=== PATIENT | female | born 1935 | race Caucasian/White ===

== ENCOUNTER 2016-03-12 08:30 | Outpatient (RCR) | payer MEDICARE, OTHER ==
--- OUTSIDE RECORDS SUMMARY | 2016-02-26 12:47 | XMS REPORT | Continuity of Care Document ---
Author Author [facility] Organization [facility] Address Unknown Phone Unavailable Care Team Providers Care Lead Software Engineer Name Role Phone Ping Bonds PCP [phone] Source Comments Some departments are not documenting in the electronic medical record. If you do not see the information that you expected, contact Release of Information in the Health Information Management department at [phone] for further assistance in locating additional records.[facility] Active Allergies and Adverse Reactions Allergen Noted Date Severity Reactions Comments Penicillin G 07/09/2014 Medium RASH Current Medications Prescription Sig. Disp. Refills Start End Date Status Date MULTIVITAMIN PO Take by mouth. vibe Active omeprazole DR(+) Take 1 Cap by mouth 90 Cap 3 10/13/19 Active (PRILOSEC) 20 mg capsule daily. 14 aspirin EC 81 mg tablet Take 81 mg by mouth every Active 7 days. other medication Take 1 Dose by mouth at Active bedtime daily. Patient is on (Oxygen 2.0ml) fluticasone-vilanterol Inhale by mouth twice Active (BREO ELLIPTA) 100-25 daily as needed. mcg/dose dsdv ALBUTEROL SULFATE Inhale by mouth four Active (VENTOLIN HFA IN) times daily as needed. ERGOCALCIFEROL (VITAMIN Take by mouth every 7 Active D2) (VITAMIN D PO) days. pramipexole (MIRAPEX) Take 0.5 Tabs by mouth 30 Tab 5 10/08/19 Active 0.25 mg tablet twice daily. 15 carbidopa/levodopa Take 2 Tabs by mouth 540 Tab 2 09/09/19 Active (SINEMET) 25/100 mg three times daily. 16 tablet rasagiline(+) (AZILECT) 1 Take 1 Tab by mouth 90 Tab 0 11/27/19 Active mg tablet daily. 16 sertraline (ZOLOFT) 50 mg Take 1 Tab by mouth 90 Tab 0 11/27/19 Active tablet daily. 16 Active Problems Problem Noted Date Depression 04/28/2015 Overview: On Zoloft (sertraline) L ast Assessment & Plan: Her symptoms are stable. No medication changes were recommended during the current visit. RLS (restless legs syndrome) 10/07/2014 Last Assessment & Plan: Her symptoms are stable. No medication changes were recommended during the current visit. Parkinsonism ([facility]) 07/09/2014 Overview: Symptoms began in 2009, initial symptoms was right sided stiffness. Diagnosed with Parkinson's disease in 2012. Atypical PD Features: Rapid Progression and Tremor Absent Side effects to Requip (ropinirole) 07/14/2014 Total Mentation Score: 3 Total Activities of Daily Living Score: 29 Total Motor Exam: 53 Total UPDRS Score: 85 PDQ 39 IMPACT PDQ Total Percent: 46.79 % 10/07/2014 PDQ8 Total Percent: 21.88% 04/28/2015 PDQ8 Total %: 22 L ast Assessment & Plan: Her symptoms are improved since last visit and no medication changes were recommended during the current visit. Cognitive changes 07/09/2014 Overview: 07/14/2014 MOCA Score (out of 30): 22 L ast Assessment & Plan: Her symptoms are not bothersome and no medication changes were recommended during the current visit. Insomnia 07/09/2014 Last Assessment & Plan: Her symptoms are stable. No medication changes were recommended during the current visit. Anxiety 07/09/2014 Overview: 07/14/2014 On Zoloft (sertraline) L ast Assessment & Plan: Her symptoms are improved since last visit. Frozen shoulder 07/09/2014 Last Assessment & Plan: I recommended Physical Therapy. Hypophonia 10/12/2013 Parkinson disease ([facility]) 07/19/2013 Gait instability 06/08/2013 Most Recent Encounters Date Type Specialty Providers Description 11/27/2015 Refill Neurology Rah Cruz MD Parkinson disease ([facility]) (Primary Dx) Social History Tobacco Use Types Packs/Day Years Used Date Never Smoker Smokeless Tobacco: Never Used Alcohol Use Drinks/Week oz/Week Comments No Last Filed Vital Signs Vital Sign Reading Time Taken Blood Pressure 171/81 04/28/2015 1:05 PM BAKERY ASSISTANT Pulse 81 04/28/2015 1:05 PM BAKERY ASSISTANT Temperature 36.4 C (97.6 F) 05/20/2014 10:50 AM CDT Respiratory Rate - - Height 1.74 m (5' 8.5") 04/28/2015 1:05 PM BAKERY ASSISTANT Weight 64 kg (141 lb 1.5 oz) 04/28/2015 1:05 PM BAKERY ASSISTANT Body Mass Index 21.14 04/28/2015 1:05 PM BAKERY ASSISTANT Oxygen Saturation 99% 05/20/2014 10:50 AM CDT Plan of Care Date Type Specialty Providers Description 04/14/2016 Appointment Neurology Rah Cruz MD [address] [facility] [address] [place] [address] [phone] (Fax) Health Maintenance Due Date Last Done Comments Physical (Comprehensive) 1942 Exam Pertussis Vaccine 1946 Tetanus Vaccine 01/07/1952 Shingles Vaccine 1995 Osteoporosis Screening 01/07/2000 Prevnar/Pneumovax (#1) 01/07/2000 Influenza Vaccine 11/13/2015 Results from Last 3 Months Not on file
[~2016-03-12 08:30] MED LIST: ACHD5005 PO; AMLO5TAB2 PO; ASPI-587 PO; CALC-793; FAMO20TA5 PO; HYDR-2856 PO; HYDR1CAP PO; HYDR1TAB PO; HYDR25CA5; MULT-608; OMEP20CA12 PO; OXYB5TAB9 PO; RASA1TAB PO; RNT150T; SCR1T PO; SENN1TAB76 PO; SERT50TA9 PO; TRIA1CAP4 PO
[2016-03-15] MEDS ORDERED: OMEP2.5S PO (16:18)
[2016-03-16] MEDS ORDERED: OMEG10005 PO (09:18)
[2016-03-16] MEDS ORDERED: NITR0.4T SL (09:18)
[2016-03-16] MEDS ORDERED: VITA150T PO (09:18)
[2016-03-16] MEDS ORDERED: CARB1TAB19 PO ×2 (09:18)
[2016-03-16] MEDS ORDERED: OMEP20CA12 PO (09:18)
[2016-03-16] MEDS ORDERED: CALC-78 PO (09:18)
[2016-03-16] MEDS ORDERED: ASPI-983 PO (09:18)
[2016-03-16] MEDS ORDERED: MULT-35 PO (09:18)
[2016-03-16] MEDS ORDERED: CHOL400T PO (09:18)
[2016-03-16] MEDS ORDERED: SERT50TA9 PO (09:18)
[2016-03-16] MEDS ORDERED: PRAM0.252 PO (09:27)
[2016-03-19] MEDS ORDERED: METO-333 PO (08:22)
[2016-03-19] MEDS ORDERED: LISI-556 PO (08:22)
== END 2016-03-23 10:54 | disposition home or self-care (01) ==
PROVIDERS: ATTEND Nurse Practitioner Family
DX: M79.621 Pain in right upper arm (principal); G20 Parkinson's disease

== ENCOUNTER 2016-03-15 14:18 | Inpatient (IN) | payer MEDICARE, OTHER ==
[2016-03-15] VITALS (10 sets, daily range): BP systolic 109–150; BP diastolic 64–92
[~2016-03-15] VITALS: Ht 177.8 cm; Wt 61.2 kg
--- OUTSIDE RECORDS SUMMARY | 2016-03-15 14:23 | XMS REPORT | Continuity of Care Document ---
Author Author [facility] Organization [facility] Address Unknown Phone Unavailable Care Team Providers Care Material Lister Name Role Phone Ping Bonds PCP [phone] Source Comments Some departments are not documenting in the electronic medical record. If you do not see the information that you expected, contact Release of Information in the Health Information Management department at [phone] for further assistance in locating additional records.[facility] Active Allergies and Adverse Reactions Allergen Noted [...] were recommended during the current visit. Parkinsonism (HCC) 07/09/2014 Overview: Symptoms began in 2009, initial [...] recommended Physical Therapy. Hypophonia 10/12/2013 Parkinson disease (HCC) 07/19/2013 Gait instability 06/08/2013 Social History Tobacco Use Types Packs/Day Years Used Date Never Smoker Smokeless Tobacco: Never Used Alcohol Use Drinks/Week oz/Week Comments No Last Filed Vital Signs Vital Sign Reading Time Taken Blood Pressure 171/81 04/28/2015 1:05 PM TRIMMING INSPECTOR Pulse 81 04/28/2015 1:05 PM TRIMMING INSPECTOR Temperature 36.4 C (97.6 F) 05/20/2014 10:50 AM CDT Respiratory Rate - - Height 1.74 m (5' 8.5") 04/28/2015 1:05 PM TRIMMING INSPECTOR Weight 64 kg (141 lb 1.5 oz) 04/28/2015 1:05 PM TRIMMING INSPECTOR Body Mass Index 21.14 04/28/2015 1:05 PM TRIMMING INSPECTOR Oxygen Saturation 99% 05/20/2014 10:50 AM CDT Plan of Care Date Type Specialty Providers Description 04/14/2016 Appointment Neurology Rah Cruz MD [address] [facility] [address] [place] [address] [phone] (Fax) Health Maintenance Due Date Last Done Comments Physical (Comprehensive) 1942 Exam Pertussis Vaccine 1946 Tetanus Vaccine 01/07/1952 Shingles Vaccine 1995 Osteoporosis Screening 01/07/2000 Prevnar/Pneumovax (#1) 01/07/2000 Influenza Vaccine 11/13/2015 Results from Last 3 Months Not on file
[2016-03-15] MEDS ORDERED: OMEP2.5S PO (16:18)
[2016-03-15] MEDS ORDERED: ASPIRIN 81 MG CHEW (CHILDREN'S ASA) PO ONE (16:45)
[2016-03-15 16:47] LABS: BASOPHILS % (AUTO) 0 % (0-10); EOSINOPHILS # (AUTO) 0.1 10^3/uL (0.0-0.3); EOSINOPHILS % (AUTO) 1 % (0-10); LYMPHOCYTES # (AUTO) 0.8 X 10^3 (1.0-4.0); LYMPHOCYTES % (AUTO) 13 % (12-44); MEAN CORPUSCULAR HEMOGLOBIN 32 PG (25-34); MEAN CORPUSCULAR HGB CONC 33 G/DL (32-36); MEAN CORPUSCULAR VOLUME 97 FL (80-99); MEAN PLATELET VOLUME 9.8 FL (7.4-10.4); MONOCYTES # (AUTO) 0.7 X 10^3 (0.0-1.0); MONOCYTES % (AUTO) 11 % (0-12); NEUTROPHILS # (AUTO) 4.8 X 10^3 (1.8-7.8); NEUTROPHILS % (AUTO) 75 % (42-75); PLATELET COUNT 121 10^3/uL (130-400); RED BLOOD COUNT 4.37 10^6/uL (4.35-5.85); RED CELL DISTRIBUTION WIDTH 12.9 % (10.0-14.5); WHITE BLOOD COUNT 6.4 10^3/uL (4.3-11.0)
[2016-03-15 16:58] LABS: PROTHROMBIN TIME PATIENT 12.7 SEC (12.2-14.7)
[2016-03-15 17:09] LABS: ALANINE AMINOTRANSFERASE 7 U/L (0-55); ALBUMIN 3.9 G/DL (3.2-4.5); ANION GAP 8 MMOL/L (5-14); ASPARTATE AMINO TRANSFERASE 25 U/L (5-34); BILIRUBIN,TOTAL 0.6 MG/DL (0.1-1.0); BLOOD UREA NITROGEN 17 MG/DL (7-18); BUN/CREATININE RATIO 21; CALCIUM 9.2 MG/DL (8.5-10.1); CARBON DIOXIDE 28 MMOL/L (21-32); CHLORIDE 104 MMOL/L (98-107); CREATINE KINASE 62 U/L (29-168); CREATININE SERUM 0.82 MG/DL (0.60-1.30); GFR ESTIMATED > 60; GLUCOSE 116 MG/DL (70-105); MAGNESIUM 2.1 MG/DL (1.8-2.4); POTASSIUM 3.9 MMOL/L (3.6-5.0); SODIUM 140 MMOL/L (135-145); TOTAL PROTEIN 6.5 G/DL (6.4-8.2)
--- NOTE | 2016-03-15 17:11 | Diagnostic Imaging Report ---
INDICATION: Shortness of breath x2 days. TECHNIQUE: Single view chest at 4:48 PM. CORRELATION STUDY: 08/09/2014 FINDINGS: Heart size appears slightly increased in size. There is presence of pulmonary vascular congestion and perihilar edema. Prominent interstitial markings likely owing to component of interstitial edema. Superimposed areas of infiltrate of the lung bases versus edema right greater than left also present. Small right pleural effusion. Apparent surgical change of bilateral mastectomies with surgical clips in bilateral axillae present. Asymmetric biapical pleural thickening noted slightly greater on the right. Hilar structures also appearing slightly prominent. Overlying monitor leads present. IMPRESSION: 1. Features favoring changes of congestive heart failure or fluid overload. 2. Superimposed edema versus infiltrate of the right lung base along with small right pleural effusion. 3. Slight prominent appearance about the hilar structures as well as asymmetric right apical pleural thickening. Would recommend short-term followup imaging for reassessment. Dictated by: Dictated on workstation # [id number]
[2016-03-15 17:17] LABS: TROPONIN I < 0.30 NG/ML (<0.30)
[2016-03-15] MEDS ORDERED: NITROGLYCERIN 2% OINT 1 GM UNIT DOSE PACKET TOP ONE (17:45)
[2016-03-15] MEDS ORDERED: ENOXAPARIN 60 MG/0.6 ML (LOVENOX) SYR SC ONE (17:45)
[2016-03-15] MEDS ORDERED: FUROSEMIDE 40 MG/4 ML INJ (LASIX) IVP ONE (17:45)
[2016-03-15] MEDS ORDERED: CLOPIDOGREL 300 MG (PLAVIX) TABLET PO ONE (17:45)
--- NOTE | 2016-03-15 18:15 | ED Respiratory ---
General Chief Complaint: Respiratory Problems Stated Complaint: CHF,NEW LBBB,HTN,CHEST PAIN Nursing Triage Note: SOB X2DAYS WORSE TODAY. Source: patient (SOMEWHAT VAGUE HISTORIAN) History of Present Illness Time seen by provider: 16:20 Initial Comments PT ARRIVES VIA POV FROM HOME C/O SHORTNESS OF BREATH SINCE LAST PM HAS HAD HOME O2 IN THE PAST, BUT HAS NOT NEEDED IT FOR A LONG TIME AND SENT IT BACK AND THIS IS NOT THE SAME HAS "FULLNESS" IN CHEST NO COUGH NO FEVER NO SWELLING IN LEGS/FEET OR PAIN IN CALVES NO PALPITATIONS NO DIZZINESS NO SWEATS NO NAUSEA/VOMITING STATES SHE "JUST HASN'T BEEN FEELING WELL" THIS WEEK NO HISTORY OF SIMILAR PCP: DR. BOLAÑOS Allergies and Home Medications Allergies Coded Allergies: Penicillins (Verified Allergy, Mild, 08/05/13) Home Medications Amlodipine Besylate 5 Mg Tab #30 5 MG PO DAILY Prescribed by: NORMA CLAUDIO on 08/22/13 1006 Aspirin 81 Mg Tablet.dr 81 MG PO DAILY (Reported) Omeprazole Magnesium 2.5 Mg Suspdr.pkt 2.5 MG PO (Reported) Oxybutynin Chloride 5 Mg Tablet #30 5 MG PO DAILY (Reported) Rasagiline Mesylate 1 Mg Tablet #30 1/2 PIILL BID (Reported) Sertraline Hcl 50 Mg Tablet 75 MG PO DAILY (Reported) Constitutional: no symptoms reportedNo chills, No diaphoresis, No dizziness, No fever EENTM: no symptoms reported Respiratory: see HPINo cough, orthopnea short of breathNo wheezing Cardiovascular: see HPI chest painNo edema, No Hx of Intervention, No palpitations, No syncope, No vascular heart diseas Gastrointestinal: no symptoms reportedNo nausea, No vomiting Genitourinary: no symptoms reported (CHRONIC INCONTINENCE) Musculoskeletal: no symptoms reported Skin: no symptoms reported Psychiatric/Neurological: No Symptoms ReportedDenies Headache, Denies Numbness , Denies Paresthesia, Denies Seizure, Denies Tingling, Tremors (HAS PARKINSON'S )Denies Weakness Hematologic/Lymphatic: No Symptoms Reported Immunological/Allergic: no symptoms reported Past Sahvdxd-Viaybj-Szhwaq Hx Patient Social History Alcohol Use: Denies Use Recreational Drug Use: No Smoking Status: Never a Smoker Recent Foreign Travel: No Contact w/Someone Who Travel: No Recent Infectious Disease Expo: No Recent Hopitalizations: No Physical Abuse Screen: No Sexual Abuse: No Surgeries HX Surgeries: Yes (COLON RESECTION FOR CANCER; LIVER RESECTION--HEMONGIOMA; HYST/BSO FOR BENIGN DISEASE; BILATERAL MASTECTOMY FOR CANCER) Surgeries: Abdominal, Appendectomy, Breast, Gallbladder, Hysterectomy, Oophorectomy Respiratory Hx Respiratory Disorders: No Cardiovascular Hx Cardiac Disorders: Yes (ON HTN MEDS IN PAST, BUT NOT NOW) Cardiac Disorders: High Cholesterol, Hypertension Neurological Hx Neurological Disorders: Yes Neurological Disorders: Parkinson's Disease Reproductive System Hx Reproductive Disorders: No Sexually Transmitted Disease: No HIV/AIDS: No Female Reproductive Disorders: Denies Genitourinary Hx Genitourinary Disorders: Yes (INCONTINENCE) Gastrointestinal Hx Gastrointestinal Disorders: Yes Gastrointestinal Disorders: Gastroesophageal Reflux Musculoskeletal Hx Musculoskeletal Disorders: Yes Musculoskeletal Disorders: Arthritis, Rheumatoid Arthritis Endocrine Hx Endocrine Disorders: No HEENT HX ENT Disorders: No Cancer Hx Cancer: Yes (BILATERAL MASTECTOMY; COLON RESECTION; 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) Cancer: Breast, Colon Psychosocial Hx Psychiatric Problems: No Integumentary HX Skin/Integumentary Disorder: No Blood Transfusions Hx Blood Disorders: No Family Medical History Significant Family History: Cancer Family Medial History: Cancer 19 FATHER (BLADDER) 19 MOTHER (LIVER ) Parkinson's disease 19 FATHER Physical Exam Vital Signs Vital Sign - Last 12Hours 03/15/16 16:14 Temp 98.3 Pulse 80 Resp 16 B/P 129/62 Pulse Ox 97 Capillary Refill : Less Than 3 Seconds General Appearance: WD/WN mild distress (MILDLY DYSPNEIC/TACHYPNEIC WITH SHALLOW BREATHING, ABLE TO TALK IN SHORT SENTENCES) HEENT: PERRL/EOMI Neck: non-tender full range of motion supple normal inspection Respiratory: no accessory muscle use rales (IN BASES) other (TACHYPNEIC WITH SHALLOW BREATHING, MILD DISTRESS) Cardiovascular: normal peripheral pulses no edema no JVD tachycardia systolic murmur (1/6 MURMUR) extra beats (OCCASIONAL ECTOPY) Gastrointestinal: normal bowel sounds non tender soft no organomegaly no pulsatile mass Extremities: normal range of motion non-tender normal inspection no pedal edema no calf tenderness normal capillary refill Neurologic/Psychiatric: 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 II-XII nml as tested no motor/sensory deficits alert normal mood/affect oriented x 3 Skin: normal color warm/dry Progress/Results/Core Measures Results/Orders Lab Results Laboratory Tests Test 03/15/16 16:36 Range/Units Activated Partial Thromboplast Time 28 24-35 SEC Alanine Aminotransferase (ALT/SGPT) 7 0-55 U/L Albumin 3.9 3.2-4.5 G/DL Alkaline Phosphatase 69 40-136 U/L Anion Gap 8 5-14 MMOL/L Aspartate Amino Transf (AST/SGOT) 25 5-34 U/L B-Type Natriuretic Peptide 608.0 H <100.0 PG/ML BUN/Creatinine Ratio 21 Basophils # (Auto) 0.0 0.0-0.1 10^3/uL Basophils (%) (Auto) 0 0-10 % Blood Urea Nitrogen 17 7-18 MG/DL Calcium Level 9.2 8.5-10.1 MG/DL Carbon Dioxide Level 28 21-32 MMOL/L Chloride Level 104 98-107 MMOL/L Creatine Kinase MB 3.0 <6.6 NG/ML Creatinine 0.82 0.60-1.30 MG/DL Eosinophils # (Auto) 0.1 0.0-0.3 10^3/uL Eosinophils (%) (Auto) 1 0-10 % Estimat Glomerular Filtration Rate > 60 Glucose Level 116 H 70-105 MG/DL Hematocrit 42 35-52 % Hemoglobin 13.8 11.5-16.0 G/DL INR Comment 1.0 0.8-1.4 Lymphocytes # (Auto) 0.8 L 1.0-4.0 X 10^3 Lymphocytes (%) (Auto) 13 12-44 % Magnesium Level 2.1 1.8-2.4 MG/DL Mean Corpuscular Hemoglobin 32 25-34 PG Mean Corpuscular Hemoglobin Concent 33 32-36 G/DL Mean Corpuscular Volume 97 80-99 FL Mean Platelet Volume 9.8 7.4-10.4 FL Monocytes # (Auto) 0.7 0.0-1.0 X 10^3 Monocytes (%) (Auto) 11 0-12 % Neutrophils # (Auto) 4.8 1.8-7.8 X 10^3 Neutrophils (%) (Auto) 75 42-75 % Platelet Count 121 L 130-400 10^3/uL Potassium Level 3.9 3.6-5.0 MMOL/L Prothrombin Time 12.7 12.2-14.7 SEC Red Blood Count 4.37 4.35-5.85 10^6/uL Red Cell Distribution Width 12.9 10.0-14.5 % Sodium Level 140 135-145 MMOL/L Total Bilirubin 0.6 0.1-1.0 MG/DL Total Creatine Kinase 62 29-168 U/L Total Protein 6.5 6.4-8.2 G/DL Troponin I < 0.30 <0.30 NG/ML White Blood Count 6.4 4.3-11.0 10^3/uL My Orders Orders-BEV DAIGLE DO Saline Lock/Iv-Start (03/15/16 16:31) Ekg Tracing (03/15/16 16:31) O2 (03/15/16 16:31) Monitor-Rhythm Ecg Trace Only (03/15/16 16:31) Arterial Blood Gas (03/15/16 16:31) BNP (03/15/16 16:31) Cbc With Automated Diff (03/15/16 16:31) Comprehensive Metabolic Panel (03/15/16 16:31) Creatine Kinase (03/15/16 16:31) Creatine Kinase Mb (03/15/16 16:31) Magnesium (03/15/16 16:31) Protime With Inr (03/15/16 16:31) Partial Thromboplastin Time (03/15/16 16:31) Troponin I (03/15/16 16:31) Chest 1 View, Ap/Pa Only (03/15/16 16:31) Aspirin Chewable Tablet (Baby Aspirin Ch (03/15/16 16:45) Furosemide Injection (Lasix Injection) (03/15/16 17:45) Enoxaparin Injection (Lovenox Injection) (03/15/16 17:45) Clopidogrel Tablet (Plavix Tablet) (03/15/16 17:45) Nitroglycerin Ointment (Nitrobid Ointme (03/15/16 17:45) Catheter(Urinary) Insert & Ass 03,15 (03/15/16 17:39) Vital Signs/I&O Vital Sign - Last 12Hours 03/15/16 16:14 Temp 98.3 Pulse 80 Resp 16 B/P 129/62 Pulse Ox 97 Blood Pressure Mean: 84 Progress Note : Progress Note O2 SATS REMAINED IN UPPER 90'S AND OTHER VITALS REMAINED STABLE ECG Initial ECG Impression Time: 16:29 Initial ECG Rate: 97 Initial ECG Rhythm: Normal Sinus (LBBB) Initial ECG Comparisson: Changed (FROM NSR 07/2014--NO BBB AT THAT TIME. ) Diagnostic Imaging Comments CXR--CHF/FLUID OVERLOAD, SUPERIMPOSED EDEMA/INFILTRATE RIGHT LUNG BASE WITH SMALL RIGHT PLEURAL EFFUSION, PROMINENCE OF ISMA, RIGHT APICAL PLEURAL THICKENING--PER RADIOLOGIST REPORT @ 1730 Reviewed: Reviewed by Me Departure Communication Progress Notes 1734--SPOKE WITH DR. CATHERINE, CARDIOLOGY. ORDERS NOTED FOR ASA, LOVENOX, PLAVIX, LASIX. HE WILL SEE PT IN CONSULT 1739--SPOKE WITH DR. BOLAÑOS. ACCEPTS PT FOR ADMIT. ADVISES ECHO IN AM. Impression Impression: Primary Impression: CHF NEW ONSET Additional Impressions: New onset left bundle branch block (LBBB) HTN (hypertension) Chest pain Disposition: ADMITTED INPATIENT Condition: Stable Decision to Admit Reason: Admit from ER (General) Decision to Admit/Date: Mar 15, 2016 Time/Decision to Admit Time: 17:40 Departure-Patient Inst. Referrals: NICOLE BOLAÑOS MD (PCP/Family) Primary Care Physician BEV DAIGLE DO Mar 15, 2016 18:15
[2016-03-15 19:24] LABS: ABG BASE EXCESS 0.9 MMOL/L (-2.5-2.5); ABG HCO3 26 MMOL/L (23-27); ABG OXYGEN SATURATION 94 % (94-100); ABG PCO2 40 MMHG (35-45); ABG PH 7.42 (7.37-7.43); ABG PO2 59 MMHG (79-93); ABG TCO2 26.7 MMOL/L (21.0-31.0)
[2016-03-15 19:26] LABS: ALLENS TEST POSITIVE; PATIENT TEMP 98.4
[2016-03-15] MEDS ORDERED: NITROGLYCERIN SUBLINGUAL 0.4 MG TAB (NITROSTAT) SL PRN (20:15)
[2016-03-15] MEDS ORDERED: morphine INJ 10 MG/ML 1ML (SYR OR VIAL) IVP PRN (20:15)
[2016-03-15] MEDS ORDERED: PATIENT MAY USE OWN MEDS, ALL PO SCH (20:15)
[2016-03-15 23:46] LABS: MYOGLOBIN SERUM 174.2 NG/ML (10.0-92.0)
[2016-03-16] VITALS (10 sets, daily range): BP systolic 109–150; BP diastolic 68–83
[2016-03-16] MEDS: NITROGLYCERIN 2% OINT 1 GM UNIT DOSE PACKET TOP SCH ×5 (01:45→23:42)
[2016-03-16 04:44] LABS: BASOPHILS % (AUTO) 0 % (0-10); EOSINOPHILS # (AUTO) 0.1 10^3/uL (0.0-0.3); EOSINOPHILS % (AUTO) 3 % (0-10); LYMPHOCYTES # (AUTO) 0.7 X 10^3 (1.0-4.0); LYMPHOCYTES % (AUTO) 15 % (12-44); MEAN CORPUSCULAR HEMOGLOBIN 32 PG (25-34); MEAN CORPUSCULAR HGB CONC 33 G/DL (32-36); MEAN CORPUSCULAR VOLUME 97 FL (80-99); MEAN PLATELET VOLUME 10.4 FL (7.4-10.4); MONOCYTES # (AUTO) 0.6 X 10^3 (0.0-1.0); MONOCYTES % (AUTO) 13 % (0-12); NEUTROPHILS # (AUTO) 3.2 X 10^3 (1.8-7.8); NEUTROPHILS % (AUTO) 69 % (42-75); PLATELET COUNT 123 10^3/uL (130-400); RED BLOOD COUNT 4.25 10^6/uL (4.35-5.85); RED CELL DISTRIBUTION WIDTH 12.7 % (10.0-14.5); WHITE BLOOD COUNT 4.7 10^3/uL (4.3-11.0)
[2016-03-16 05:08] LABS: ALANINE AMINOTRANSFERASE 7 U/L (0-55); ALBUMIN 3.6 G/DL (3.2-4.5); ANION GAP 13 MMOL/L (5-14); ASPARTATE AMINO TRANSFERASE 24 U/L (5-34); BILIRUBIN,TOTAL 0.8 MG/DL (0.1-1.0); BLOOD UREA NITROGEN 16 MG/DL (7-18); BUN/CREATININE RATIO 21; CALCIUM 8.5 MG/DL (8.5-10.1); CARBON DIOXIDE 26 MMOL/L (21-32); CHLORIDE 104 MMOL/L (98-107); CHOLESTEROL 182 MG/DL (< 200); CREATININE SERUM 0.76 MG/DL (0.60-1.30); DIRECT LDL 79 MG/DL (1-129); GFR ESTIMATED > 60; GLUCOSE 94 MG/DL (70-105); POTASSIUM 3.4 MMOL/L (3.6-5.0); SODIUM 143 MMOL/L (135-145); TOTAL PROTEIN 5.9 G/DL (6.4-8.2); TRIGLYCERIDES 68 MG/DL (<150); VLDL CHOLESTEROL 14 MG/DL (5-40)
--- NOTE | 2016-03-16 06:55 | History & Physicial ---
History of Present Illness History of Present Illness Reason for visit/HPI PT IS AN 81 Y/O FEMALE WHO IS KNOWN TO ME FROM CLINIC. THE PATIENT'S CALLED ME ON 03/15/15 AT AROUND 1030 WANTING ME TO ORDER HER OXYGEN FOR HOME USE. I INFORMED HIM THAT IF SHE WAS IN NEED OF OXYGEN AND THIS IS A NEW DEVELOPMENT , HE NEEDED TO TAKE HER IN TO THE EMERGENCY DEPARTMENT FOR EVALUATION. HE REPORTED TO ME THAT SHE DID NOT WANT TO GO TO THE EMERGENCY ROOM AT THIS TIME AND THEY WOULD DECIDE LATER IF SHE NEEDED TO GO. I AGAIN ENCOURAGED HIM TO CONSIDER THE EMERGENCY DEPARTMENT IF THEY FELT LIKE SHE WAS HAVING WORSENING ISSUES OR HER SYMPTOMS DID NOT IMPROVE. THE PATIENT APPARENTLY STARTED TO HAVE INCREASED SHORTNESS OF BREATH, WAS TRANSPORTED TO THE EMERGENCY DEPARTMENT WHERE SHE WAS FOUND TO HAVE A NEW LEFT BUNDLE BRANCH BLOCK AND ACUTE HEART FAILURE. Date of Admission Mar 15, 2016 at 17:40 I consulted on this patient on 03/16/16 06:52 Attending Physician Nicole Bonds MD Admitting Physician Nicole Bonds MD Consult CARDIOLOGY QUARTER TRIMMER Allergies and Home Medications Allergies Coded Allergies: Penicillins (Verified Allergy, Mild, 08/05/13) Home Medications Amlodipine Besylate 5 Mg Tab #30 5 MG PO DAILY Prescribed by: NORMA CLAUDIO on 08/22/13 1006 Aspirin 81 Mg Tablet.dr 81 MG PO DAILY (Reported) Omeprazole Magnesium 2.5 Mg Suspdr.pkt 2.5 MG PO (Reported) Oxybutynin Chloride 5 Mg Tablet #30 5 MG PO DAILY (Reported) Rasagiline Mesylate 1 Mg Tablet #30 1/2 PIILL BID (Reported) Sertraline Hcl 50 Mg Tablet 75 MG PO DAILY (Reported) Past Sienxgd-Tntikf-Puolui Hx Patient Social History Marrital Status: Living Status: L[place]ES AT [place] [facility] [place] Employed/Student: retired Alcohol Use: Denies Use Recreational Drug Use: No Smoking Status: Never a Smoker 2nd Hand Smoke Exposure: No Physical Abuse Screen: No Sexual Abuse: No Recent Foreign Travel: No Contact w/other who traveled: No Recent Hopitalizations: No Recent Infectious Disease Expo: No Immunizations Up To Date Tetanus Booster (TDap): Unknown Seasonal Allergies Seasonal Allergies: No Surgeries HX Surgeries: Yes Surgeries: Abdominal, Appendectomy, Breast, Gallbladder, Hysterectomy, Oophorectomy Respiratory Hx Respiratory Disorders: No Cardiovascular Hx Cardiovascular Disorders: Yes Cardiac Disorders: High Cholesterol, Hypertension Neurological Hx Neurological Disorders: Yes Neurological Disorders: Parkinson's Disease Reproductive System Hx Reproductive Disorders: No Sexually Transmitted Disease: No HIV/AIDS: No Female Reproductive Disorders: Denies Genitourinary Hx Genitourinary Disorders: No (Stress incontinence) Gastrointestinal Hx Gastrointestinal Disorders: Yes Gastrointestinal Disorders: Gastroesophageal Reflux Musculoskeletal Hx Musculoskeletal Disorders: Yes Musculoskeletal Disorders: Chronic Back Pain Endocrine Hx Endocrine Disorders: No HEENT HX ENT Disorders: No Cancer Hx Cancer: Yes Cancer: Breast, Colon Psychosocial Hx Psychiatric Problems: No Integumentary HX Skin/Integumentary Disorder: No Blood Transfusions Hx Blood Disorders: No Adverse Reaction to a Blood Tr: No Reviewed Nursing Assessment Reviewed/Agree w Nursing PMH: Yes Family Medical History Significant Family History: Cancer Family Hx: Cancer 19 FATHER (BLADDER) 19 MOTHER (LIVER ) Myocardial infarction 19 MOTHER Parkinson's disease 19 FATHER Constitutional: No fever, No malaise, No weakness EENTM: No hoarseness, No nose pain Respiratory: No cough, dyspnea on exertionNo short of breath, No wheezing Cardiovascular: no symptoms reportedNo chest pain, edemaNo palpitations Gastrointestinal: No abdominal pain, No constipation, No diarrhea, No nausea, No vomiting Genitourinary: No dysuria, No frequency, No nocturia Musculoskeletal: No back pain, No joint swelling Skin: no symptoms reported Psychiatric/Neurological: Denies Anxiety, Denies Depressed All Other Systems Reviewed Negative Unless Noted: Yes Physical Exam Vital Signs Vital Sign - Last 12Hours 03/15/16 03/15/16 16:14 16:20 Temp 98.3 Pulse 80 Resp 16 B/P 129/62 Pulse Ox 97 O2 Delivery Nasal Cannula O2 Flow Rate 2 Capillary Refill : Less Than 3 Seconds General Appearance: No Apparent Distress WD/WN Eyes: Bilateral Eye EOMI, Bilateral Eye Normal Inspection, Bilateral Eye PERRL HEENT: PERRL/EOMI Pharynx Normal Neck: Full Range of Motion Supple Respiratory: Chest Non Tender Lungs Clear Normal Breath Sounds No Accessory Muscle Use Cardiovascular: Regular Rate, Rhythm Gastrointestinal: Normal Bowel Sounds No Organomegaly No Pulsatile Mass Non Tender Soft Rectal: Deferred Extremity: Pedal Edema (TRACE AT ANKLES) Neurologic/Psychiatric: Alert Oriented x3 No Motor/Sensory Deficits Normal 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 WILL DEFER TREATMENT TO CARDIOLOGY - DR. CATHERINE CONSULTED ON THE CASE. DYSPNEA - WILL CHECK AMBULATORY OXYGEN ON THIS PATIENT PRIOR TO DISCHARGE, AND OVERNIGHT OXYGEN WELL TO SEE IF SHE QUALIFIES FOR OXYGEN AT HOME. HYPERTENSION - STABLE- WAIT TO RESTART HOME MEDICATIONS. I HAVE ATTEMPTED TO DO MEDICATION RECONCILIATION -BUT THE MED-RECONCILIATION WAS LOCKED AND I WAS UNABLE TO DOCUMENT THE REVIEW OF HER MEDICATIONS. PPI TO BE STARTED FOR GI PROPHYLAXIS - PT ON LOVENOX PER CARDIOLOGY FOR DVT PROPHYLAXIS. Admission Diagnosis NEW ONSET HEART FAILURE LEFT BUNDLE BRANCH BLOCK DYSPNEA HX COLON CANCER HX BREAST CANCER WITH BILATERAL MASTECTOMY HYPERTENSION Clinical Quality Measures DVT/VTE Risk/Contraindication: Risk Factor Score Per Nursin RFS Level Per Nursing on Admit: 4+=Very High NICOLE BONDS MD Mar 16, 2016 06:55
[2016-03-16] MEDS: ENOXAPARIN 60 MG/0.6 ML (LOVENOX) SYR SC SCH ×2 (07:45→18:23)
--- NOTE | 2016-03-16 09:00 | Diagnostic Imaging Report ---
INDICATION: Chest pain. TECHNIQUE: A PA chest was obtained at 0514 hours. COMPARISON: 03/15/2016. FINDINGS: There is cardiomegaly. There is central vascular congestion with diffuse interstitial prominence. There is improving infiltrate in the right lung base compared to yesterday. There is no pneumothorax or pleural fluid. There are surgical clips over the axillary regions on both sides. IMPRESSION: Cardiomegaly and central vascular prominence with diffuse chronic appearing increased interstitial markings. There is partial improvement in the infiltrate in the right lung base compared to yesterday. Dictated by: Dictated on workstation # [id number]
[2016-03-16] MEDS ORDERED: VITA150T PO (09:18)
[2016-03-16] MEDS ORDERED: CARB1TAB19 PO ×2 (09:18)
[2016-03-16] MEDS ORDERED: MULT-35 PO (09:18)
[2016-03-16] MEDS ORDERED: NITR0.4T SL (09:18)
[2016-03-16] MEDS ORDERED: SERT50TA9 PO (09:18)
[2016-03-16] MEDS ORDERED: CALC-78 PO (09:18)
[2016-03-16] MEDS ORDERED: CHOL400T PO (09:18)
[2016-03-16] MEDS ORDERED: OMEP20CA12 PO (09:18)
[2016-03-16] MEDS ORDERED: ASPI-983 PO (09:18)
[2016-03-16] MEDS ORDERED: OMEG10005 PO (09:18)
[2016-03-16] MEDS ORDERED: PRAM0.252 PO (09:27)
[2016-03-16] MEDS ORDERED: NITROGLYCERIN SUBLINGUAL 0.4 MG TAB (NITROSTAT) SL PRN (09:30)
[2016-03-16] MEDS: NS IV 1000 ML 1,000 ML IV SCH (09:50)
[2016-03-16] MEDS ORDERED: PANTOPRAZOLE 20 MG TABLET (PROTONIX) PO PRN (10:54)
[2016-03-16] MEDS ORDERED: PRAMIPEXOLE 0.5 MG TAB (MIRAPEX) PO PRN (10:55)
--- NOTE | 2016-03-16 12:10 | Consultation-Cardiology ---
HPI-Cardiology Cardiology Consultation: Date of Consultation 03/16/16 Date of Admission Attending Physician Jazz Bonds MD Admitting Physician Jazz Bonds MD Consulting Physician Ottoniel GARCÍA MD HPI: Chief Complaint: shortness of breath 81 year old lady with shortness of breath. denies chest pain, syncope, near- syncope, palpitations. Review of Systems-Cardiology Review of Systems Constitutional: No As described under HPI, No no symptoms reported, No chills, No fever, No lightheadedness, No malaise, No tiredness, No weight loss, No weight gain, No other Eyes: No As described under HPI, No no symptoms reported, No blindness, No blurred vision, No contact lenses, No drainage, No decreased acuity, No foreign body sensation, No glasses, No inflammation, No pain, No photophobia, No previous injury, No shadows, No tunnel vision, No other, No vision change Ears/Nose/Throat: No As described under HPI, No no symptoms reported, No chronic hearing loss, No epistaxis, No ear discharge, No ear pain, No loose teeth, No mouth pain, No mouth swelling, No nasal drainage, No nose pain, No recent hearing loss, No throat pain, No throat swelling, No ulcerations, No other Respiratory: shortness of breath Cardiovascular: No no symptoms reported, No As described under HPI, No chest pain, No edema, No irregular heart rate, No lightheadedness, No palpitations, No syncope, No other Gastrointestinal: No no symptoms reported, No As described under HPI, No abdomen distended, No abdominal pain, No blood streaked bowels, No constipation , No diarrhea, No difficulty swallowing, No nausea, No poor appetite, No poor fluid intake, No rectal bleeding, No vomiting, No other, No nausea/vomiting/ diarrhea, No stool coloration changes Genitourinary: No no symptoms reported, No As described under HPI, No burning, No dysuria, No discharge, No frequency, No flank pain, No hematuria, No incontinence, No pain, No urgency, No other, No urine frequency changes, No urine coloration changes Musculoskeletal: No no symptoms reported, No As describe under HPI, No back pain, No gout, No joint pain, No joint swelling, No muscle pain, No muscle stiffness, No neck pain, No other Skin: No no symptoms reported, No As described under HPI, No change in color, No change in hair/nails, No dryness, No lesions, No lumps, No rash, No other, No skin related problems, No ulcerations, No rash on exposed areas, No ulcerations on exposed areas Psychiatric/Neurological: No As described under HPI, No anxiety, No depression , No emotional problems, No focal weakness, No headache, No no symptoms reported , No numbness, No other, No pre-existing deficit, No seizure, No syncope, No tingling, No tremors, No weakness All Other Systems Reviewed Negative Unless Noted: Yes GKR-Yimrtk-Hlhoiz Hx Patient Social History Marrital Status: Living Status: LIVES AT HOME WITH [place] Employed/Student: retired Alcohol Use: Denies Use Recreational Drug Use: No Smoking Status: Never a Smoker 2nd Hand Smoke Exposure: No Recent Foreign Travel: No Recent Infectious Disease Expo: No Physical Abuse Screen: No Sexual Abuse: No Immunizations Up To Date Tetanus Booster (TDap): Unknown Past Medical History PMH As described under Assessment. Family Medical History Family History: Cancer 19 FATHER (BLADDER) 19 MOTHER (LIVER ) Myocardial infarction 19 MOTHER Parkinson's disease 19 FATHER Allergies and Home Medications Allergies Coded Allergies: Penicillins (Verified Allergy, Mild, 08/05/13) Home Medications Aspirin 81 Mg Tablet.dr 81 MG PO MoWeFr (Reported) Calcium Carbonate/Vitamin D3 1 Each Tablet 1 TAB PO DAILY (Reported) Carbidopa/Levodopa 1 Each Tablet 2 TAB PO BID (Reported) Carbidopa/Levodopa 1 Each Tablet 3 TAB PO 1200 (Reported) Cholecalciferol (Vitamin D3) 400 Unit Tablet 400 UNIT PO DAILY (Reported) Multivitamin 1 Each Tablet 1 TAB PO DAILY (Reported) Nitroglycerin 0.4 Mg Tab.subl 0.4 MG SL UD PRN PRN CHEST PAIN (Reported) [place]-3 Fatty Acids 1,000 Mg Capsule 1,000 MG PO DAILY (Reported) Omeprazole 20 Mg Capsule.dr 20 MG PO DAILY PRN PRN ACID REFLUX (Reported) Pramipexole Di-HCl 0.25 Mg Tablet 0.5 TAB PO BID PRN PRN RESTLESS LEGS (Reported ) Rasagiline Mesylate 1 Mg Tablet 1 MG PO DAILY (Reported) Sertraline HCl 50 Mg Tablet 50 MG PO HS (Reported) Vitamin B Complex & Vit C No.4 150 Mg Tablet 150 MG PO DAILY (Reported) Physical Exam-Cardiology Physical Exam Vital Signs/I&O Vital Sign - Last 12Hours 03/16/16 03/16/16 03/16/16 03/16/16 12:00 12:36 13:00 16:00 Temp 97.1 Pulse 93 99 Resp 18 B/P 150/83 Pulse Ox 95 95 O2 Delivery Room Air Room Air Room Air 03/16/16 03/16/16 03/16/16 16:50 18:23 19:00 Temp 97.5 97.5 Pulse 92 76 Resp 16 B/P 135/83 Pulse Ox 94 O2 Delivery Room Air Capillary Refill : Less Than 3 Seconds Constitutional: No appears stated age, No AAO x 3, No apparent distress, No PERRL, No well-developed, No well-nourished, No other HEENT: No PERRL, No normal ENT inspection, No TMs normal, No pharynx normal, No scleral icterus (R), No scleral icterus (L), No pale conjunctivae (R), No pale conjunctivae (L), No photophobia, No TM abnormal (R), No TM abnormal (L), No pharyngeal erythema, No tonsillar exudate, No other, No discharge, No EOMI, No hearing is well preserved, No hard of hearing, No oral hygience is good, No ulceration, No xanthelasmas are seen Neck: No non-tender, No full range of motion, No supple, No normal inspection, No carotid bruit, No limited range of motion, No lymphadenopathy (R), No lymphadenopathy (L), No tender lateral, No tender midline, No thyromegaly, No other, No carotid pulses are 2 + bilaterally, No with good upstrokes Respiratory: No accessory muscle use, No respiratory distress, No chest tender , No chest expansion is symmetric, No chest is bilaterally symmetric, No lungs clear to percussion, No lungs clear to auscultation, No crackles, No rhonchi, No rales, No stridor, No wheezing, No pleural rub, No other Cardiovascular: No regular rate-rhythm, No irregularly irregular, No extra beats, No parasternal heave is noted, No JVD, No edema, No bradycardia, No tachycardia, No point of maximal impulse, No cardiac thrills are palpable, No S1 and S2, No gallop/S3, No gallop/S4, No diastolic murmur, No systolic murmur, No friction rub, No click, No other Gastrointestinal: No tender, No soft, No round, No distended, No pulsatile mass , No organomegaly, No guarding, No rebound, No tenderness, No hernia, No mass, No audible bowel sounds, No abnormal bowel sounds, No abdominal bruits, No spleenomegaly, No other Rectal: deferred Extremities: No normal range of motion, No non-tender, No normal inspection, No pedal edema, No calf tenderness, No normal capillary refill, No pelvis stable , No calf tenderness, No inflammation, No pedal edema, No slow capillary refill , No swelling, No other, No abrasion, No clubbing, No cyanosis, No ecchymosis, No laceration, No no lower extremity edema bilateral, No significant edema, No tenderness, No wound Neurologic/Psychiatric: No sanding machine buffer II-XII nml as tested, No no motor/sensory deficits, No alert, No normal mood/affect, No oriented x 3, No abnormal cerebellar tests, No abnormal sanding machine buffer II-XII, No abnormal gait, No aphasia, No EOM palsy, No facial droop, No motor weakness, No sensory deficit, No depressed affect, No disoriented x 3, No other, No grossly intact, No power is 5/5 both on sides Skin: No normal color, No warm/dry, No cyanosis, No cool, No diaphoresis, No damp, No ecchymosis, No jaundice, No mottled, No pallor, No rash, No tattoos/ piercings, No ulcerations, No rash on exposed areas, No ulcerations on exposed areas, No other Data Review Labs Laboratory Tests 03/15/16 22:45: Myoglobin 174.2H, Troponin I < 0.30 03/16/16 03:45: Alanine Aminotransferase (ALT/SGPT) 7, Albumin 3.6, Alkaline Phosphatase 62, Anion Gap 13, Aspartate Amino Transf (AST/SGOT) 24, B-Type Natriuretic Peptide 642.2H, BUN/Creatinine Ratio 21, Basophils # (Auto) 0.0, Basophils (%) (Auto) 0 , Blood Urea Nitrogen 16, Calcium Level 8.5, Carbon Dioxide Level 26, Chloride Level 104, Cholesterol Level 182, Creatinine 0.76, Eosinophils # (Auto) 0.1, Eosinophils (%) (Auto) 3, Estimat Glomerular Filtration Rate > 60, Glucose Level 94, HDL Cholesterol 78H, Hematocrit 41, Hemoglobin 13.4, LDL Cholesterol Direct 79, Lymphocytes # (Auto) 0.7L, Lymphocytes (%) (Auto) 15, Mean Corpuscular Hemoglobin 32, Mean Corpuscular Hemoglobin Concent 33, Mean Corpuscular Volume 97, Mean Platelet Volume 10.4, Monocytes # (Auto) 0.6, Monocytes (%) (Auto) 13H, Neutrophils # (Auto) 3.2, Neutrophils (%) (Auto) 69, Platelet Count 123L, Potassium Level 3.4L, Red Blood Count 4.25L, Red Cell Distribution Width 12.7, Sodium Level 143, Total Bilirubin 0.8, Total Protein 5.9L, Triglycerides Level 68, VLDL Cholesterol 14, White Blood Count 4.7 ECG Impression ECG Initial ECG Rhythm: Normal Sinus A/P-Cardiology Assessment/Admission Diagnosis chf, LBBB Plan CHF - echo to check EF. agree with lasix. strict I/O. daily weight. fluid restriction x 1.5 liters. low salt. HTN- get records from [facility]; if recent cath then will not require any further CAD testing. if no recent cath, nuclear stress testing will be recommended. Thank you for your consultation. Please call me if you have any questions. Moises García MD, FACP, FACC, FSCAI, FHRS, CCDS Interventional Cardiology Cardiac Electrophysiology Vascular Medicine and Endovascular Interventions Clinical Quality Measures DVT/VTE Risk/Contraindication: Risk Factor Score Per Nursin RFS Level Per Nursing on Admit: 4+=Very High Ottoniel GARCÍA MD Mar 16, 2016 12:09 pm
[2016-03-16] MEDS: OMEGA 3 (FISH OIL) 1000 MG CAP PO SCH (12:59)
[2016-03-16] MEDS: ASPIRIN E.C. 325 MG (ECOTRIN) TABLET PO SCH (12:59)
[2016-03-16] MEDS: SINEMET 25/100 (CARBIDOPA/LEVODOPA) TAB PO SCH ×2 (12:59→23:30)
[2016-03-16] MEDS ORDERED: FLU TRIvalent (5 YOA+) 2016-17 (AFLURIA) 0.5 ML IM ONE (14:00)
[2016-03-16] MEDS ORDERED: CATHETER FLUSH 10 ML SYR IV PRN (15:15)
[2016-03-16] MEDS: SERTRALINE 50 MG (ZOLOFT) TABLET PO SCH (23:30)
[2016-03-17] VITALS: BP 146/81
[2016-03-17] MEDS: NS IV 1000 ML 1,000 ML IV SCH ×2 (03:00→22:22)
[2016-03-17 04:00] VITALS: BP 111/61
[2016-03-17 04:28] LABS: MEAN PLATELET VOLUME 9.8 FL (7.4-10.4); RED BLOOD COUNT 3.95 10^6/uL (4.35-5.85); RED CELL DISTRIBUTION WIDTH 12.6 % (10.0-14.5); WHITE BLOOD COUNT 4.4 10^3/uL (4.3-11.0)
[2016-03-17 04:57] LABS: ANION GAP 9 MMOL/L (5-14); BLOOD UREA NITROGEN 24 MG/DL (7-18); BUN/CREATININE RATIO 33; CARBON DIOXIDE 27 MMOL/L (21-32); CHLORIDE 105 MMOL/L (98-107); CREATININE SERUM 0.72 MG/DL (0.60-1.30); GFR ESTIMATED > 60; GLUCOSE 126 MG/DL (70-105); POTASSIUM 3.5 MMOL/L (3.6-5.0); SODIUM 141 MMOL/L (135-145)
[2016-03-17] MEDS: NITROGLYCERIN 2% OINT 1 GM UNIT DOSE PACKET TOP SCH ×2 (06:37→12:00)
[2016-03-17] MEDS: ENOXAPARIN 60 MG/0.6 ML (LOVENOX) SYR SC SCH ×2 (06:37→18:15)
--- NOTE | 2016-03-17 07:33 | Progress Note (SOAP) ---
Subjective Subjective/Events-last exam PT REPORTS THAT SHE WAS OFF OF HER OXYGEN FOR SEVERAL HOURS THIS MORNING/LAST NIGHT -BUT PUT IT BACK ON AFTER GETTING UP TO THE CHAIR AND FEELING WEAK AND SHORT OF BREATH THIS MORNING. SHE IS WONDERING WHEN SHE WILL BE ALLOWED TO GO HOME. Review of Systems General: Fatigue HEENT: No Head Aches Pulmonary: Dyspnea (WITH ACTIVITY)No Cough Cardiovascular: No: Chest Pain, Edema Gastrointestinal: No: Abdominal Pain, Nausea Genitourinary: No Dysuria Neurological: : WeaknessNo: Confusion Objective Exam Vital Signs Date Time Temp Pulse Resp B/P Pulse Ox O2 Delivery O2 Flow Rate FiO2 03/17/16 04:00 Room Air 03/17/16 04:00 97.7 86 18 111/61 95 Room Air 03/17/16 01:00 105 03/17/16 00:00 Room Air 03/17/16 00:00 98.2 101 18 146/81 94 Room Air 03/16/16 21:00 94 Room Air 03/16/16 20:00 97.9 95 16 133/78 95 Room Air 03/16/16 19:00 112 03/16/16 18:23 97.5 03/16/16 16:50 97.5 92 16 135/83 94 Room Air 03/16/16 16:00 Room Air 03/16/16 13:00 99 03/16/16 12:36 95 Room Air 03/16/16 12:00 97.1 93 18 150/83 95 Room Air 03/16/16 09:00 Nasal Cannula 2.00 03/16/16 08:00 96.2 80 16 148/81 98 Room Air I & O 03/17/16 07:00 Intake Total 370 ml Output Total 350 ml Balance 20 ml Capillary Refill : Less Than 3 Seconds General Appearance: No Apparent Distress Thin HEENT: PERRL/EOMI Pharynx Normal Neck: Full Range of Motion Supple Respiratory: Chest Non Tender Lungs Clear Normal Breath Sounds Cardiovascular: Regular Rate, Rhythm No Edema Gastrointestinal: normal bowel sounds non tender soft no organomegaly no pulsatile mass Extremity: Normal Capillary Refill No Calf Tenderness No Pedal Edema Neurologic/Psychiatric: Alert Oriented x3 Normal Mood/Affect Skin: Warm/Dry Lymphatic: No Adenopathy Results Lab Laboratory Tests 03/17/16 04:00: Anion Gap 9, B-Type Natriuretic Peptide 485.3H, BUN/Creatinine Ratio 33, Blood Urea Nitrogen 24H, Calcium Level 9.0, Carbon Dioxide Level 27, Chloride Level 105, Creatinine 0.72, Estimat Glomerular Filtration Rate > 60, Glucose Level 126H, Hematocrit 38, Hemoglobin 12.4, Mean Corpuscular Hemoglobin 31, Mean Corpuscular Hemoglobin Concent 33, Mean Corpuscular Volume 96, Mean Platelet Volume 9.8, Platelet Count 117L, Potassium Level 3.5L, Red Blood Count 3.95L, Red Cell Distribution Width 12.6, Sodium Level 141, White Blood Count 4.4 Assessment/Plan Assessment/Plan Assess & Plan/Chief Complaint NEW ONSET HEART FAILURE LEFT BUNDLE BRANCH BLOCK DYSPNEA HX COLON CANCER HX BREAST CANCER WITH BILATERAL MASTECTOMY HYPERTENSION PT ADMITTED WITH NEW ONSET HEART FAILURE - IMPROVED BNP. WILL DEFER TREATMENT TO CARDIOLOGY - DR. CATHERINE CONSULTED ON THE CASE - PER STAFF REPORT -PT TO HAVE HEART CATHETERIZATION TOMORROW DYSPNEA - WILL CHECK AMBULATORY OXYGEN ON THIS PATIENT PRIOR TO DISCHARGE, AND OVERNIGHT OXYGEN WELL TO SEE IF SHE QUALIFIES FOR OXYGEN AT HOME. HYPERTENSION - STABLE- WAIT TO RESTART HOME MEDICATIONS. Diagnosis/Problems: Clinical Quality Measures DVT/VTE Risk/Contraindication: Risk Factor Score Per Nursin RFS Level Per Nursing on Admit: 4+=Very High NICOLE BOLAÑOS MD Mar 17, 2016 07:33
[2016-03-17 08:15] VITALS: BP 139/82
[2016-03-17] MEDS: ASPIRIN E.C. 325 MG (ECOTRIN) TABLET PO SCH (09:30)
[2016-03-17] MEDS: VITAMIN D3 400 UNITS (CHOLECALCIFEROL) TABLET PO SCH (09:30)
[2016-03-17] MEDS: OMEGA 3 (FISH OIL) 1000 MG CAP PO SCH (09:30)
[2016-03-17] MEDS: SINEMET 25/100 (CARBIDOPA/LEVODOPA) TAB PO SCH ×3 (09:30→22:22)
[2016-03-17 11:25] VITALS: BP 124/69
--- NOTE | 2016-03-17 13:42 | Cardiology Progress Note ---
Cardiology SOAP Progress Note Subjective: Improved shortness of breath Objective: I&O/Vital Signs Vital Sign - Last 12Hours 03/17/16 03/17/16 03/17/16 03/17/16 04:00 04:00 07:03 07:40 Temp 97.7 Pulse 86 97 Resp 18 B/P 111/61 Pulse Ox 95 O2 Delivery Room Air Room Air Nasal Cannula O2 Flow Rate 3.00 03/17/16 03/17/16 08:15 11:25 Temp 96.7 97.2 Pulse 91 97 Resp 20 18 B/P 139/82 124/69 Pulse Ox 97 97 O2 Delivery Room Air Nasal Cannula O2 Flow Rate 3.00 Intake and Output 03/17/16 00:00 Intake Total 250 ml Output Total 350 ml Balance -100 ml Weight (Pounds): 135 Weight (Ounces): 5.0 Weight (Calculated Kilograms): 61.276097 Constitutional: No appears stated age, No AAO x 3, No apparent distress, No PERRL, No well-developed, No well-nourished, No other Respiratory: No accessory muscle use, No respiratory distress, No chest tender , No chest expansion is symmetric, No chest is bilaterally symmetric, No lungs clear to percussion, No lungs clear to auscultation, No crackles, No rhonchi, No rales, No stridor, No wheezing, No pleural rub, No other Cardiovascular: No regular rate-rhythm, No irregularly irregular, No extra beats, No parasternal heave is noted, No JVD, No edema, No bradycardia, No tachycardia, No point of maximal impulse, No cardiac thrills are palpable, No S1 and S2, No gallop/S3, No gallop/S4, No diastolic murmur, No systolic murmur, No friction rub, No click, No other Gastrointestional: No tender, No soft, No round, No distended, No pulsatile mass, No organomegaly, No guarding, No rebound, No tenderness, No hernia, No mass, No audible bowel sounds, No abnormal bowel sounds, No abdominal bruits, No spleenomegaly, No other Extremities: No normal range of motion, No non-tender, No normal inspection, No pedal edema, No calf tenderness, No normal capillary refill, No pelvis stable , No calf tenderness, No inflammation, No pedal edema, No slow capillary refill , No swelling, No other, No abrasion, No clubbing, No cyanosis, No ecchymosis, No laceration, No no lower extremity edema bilateral, No significant edema, No tenderness, No wound Neurologic/Psychiatric: No coverage specialist rn II-XII nml as tested, No no motor/sensory deficits, No alert, No normal mood/affect, No oriented x 3, No abnormal cerebellar tests, No abnormal coverage specialist rn II-XII, No abnormal gait, No aphasia, No EOM palsy, No facial droop, No motor weakness, No sensory deficit, No depressed affect, No disoriented x 3, No other, No grossly intact, No power is 5/5 both on sides Skin: No normal color, No warm/dry, No cyanosis, No cool, No diaphoresis, No damp, No ecchymosis, No jaundice, No mottled, No pallor, No rash, No tattoos/ piercings, No ulcerations, No rash on exposed areas, No ulcerations on exposed areas, No other Results/Procedures: Labs Laboratory Tests 03/17/16 04:00: Anion Gap 9, B-Type Natriuretic Peptide 485.3H, BUN/Creatinine Ratio 33, Blood Urea Nitrogen 24H, Calcium Level 9.0, Carbon Dioxide Level 27, Chloride Level 105, Creatinine 0.72, Estimat Glomerular Filtration Rate > 60, Glucose Level 126H, Hematocrit 38, Hemoglobin 12.4, Mean Corpuscular Hemoglobin 31, Mean Corpuscular Hemoglobin Concent 33, Mean Corpuscular Volume 96, Mean Platelet Volume 9.8, Platelet Count 117L, Potassium Level 3.5L, Red Blood Count 3.95L, Red Cell Distribution Width 12.6, Sodium Level 141, White Blood Count 4.4 A/P: Assessment/Dx: acute systolic CHF Plan: CHF - agree with lasix. strict I/O. daily weight. fluid restriction x 1.5 liters. low salt. HTN- Previous cath done at [facility] in 2012 which shows normal LVEF and normal coronaries. Our Echo shows a new LV dysfunction with EF 35-40%. Coronary angiography is required to r/o CAD. Plan for tomorrow. Thank you for your consultation. Please call me if you have any questions. Moises García MD, FACP, FACC, FSCAI, FHRS, CCDS Interventional Cardiology Cardiac Electrophysiology Vascular Medicine and Endovascular Interventions Ottoniel GARCÍA MD Mar 17, 2016 1:42 pm
[2016-03-17] MEDS ORDERED: PATIENT MAY USE OWN MED,SINGLE MED PO SCH (15:15)
[2016-03-17 15:20] VITALS: BP 117/69
[2016-03-17] MEDS: AZILECT 1 MG TAB PO SCH (18:15)
[2016-03-17 20:45] VITALS: BP 139/72
[2016-03-17] MEDS: SERTRALINE 50 MG (ZOLOFT) TABLET PO SCH (22:22)
[2016-03-18] VITALS (16 sets, daily range): BP systolic 110–146; BP diastolic 62–81
[2016-03-18 06:03] LABS: MEAN PLATELET VOLUME 9.6 FL (7.4-10.4); RED BLOOD COUNT 4.14 10^6/uL (4.35-5.85); RED CELL DISTRIBUTION WIDTH 12.6 % (10.0-14.5); WHITE BLOOD COUNT 4.3 10^3/uL (4.3-11.0)
[2016-03-18] MEDS ORDERED: LIDOCAINE 1% INJ 20 ML (XYLOCAINE) VIAL ONE (06:42)
[2016-03-18] MEDS ORDERED: NS IV 1000 ML 1,000 ML ONE (06:42)
[2016-03-18] MEDS ORDERED: HEParin (CATH LAB) 2,000 ML IV ONE (06:43)
[2016-03-18 06:56] LABS: ANION GAP 10 MMOL/L (5-14); BLOOD UREA NITROGEN 16 MG/DL (7-18); BUN/CREATININE RATIO 25; CALCIUM 8.5 MG/DL (8.5-10.1); CARBON DIOXIDE 25 MMOL/L (21-32); CHLORIDE 106 MMOL/L (98-107); CREATININE SERUM 0.65 MG/DL (0.60-1.30); GFR ESTIMATED > 60; GLUCOSE 97 MG/DL (70-105); POTASSIUM 3.5 MMOL/L (3.6-5.0); SODIUM 141 MMOL/L (135-145)
[2016-03-18] MEDS: ENOXAPARIN 60 MG/0.6 ML (LOVENOX) SYR SC SCH ×2 (07:00→21:19)
--- NOTE | 2016-03-18 08:08 | Progress Note (SOAP) ---
Subjective Subjective/Events-last exam PT REPORTS FEELING BETTER TODAY SHE IS QUESTIONING HOW SHE CAN GET OXYGEN FOR HOME USE. Review of Systems General: Fatigue Pulmonary: DyspneaNo Cough Cardiovascular: No: Chest Pain Gastrointestinal: No: Abdominal Pain, Nausea Genitourinary: No Dysuria Neurological: : Weakness (GENERALIZED) Objective Exam Vital Signs Date Time Temp Pulse Resp B/P Pulse Ox O2 Delivery O2 Flow Rate FiO2 03/18/16 08:06 96.7 91 20 125/72 98 Nasal Cannula 3.00 3.00 03/18/16 08:01 96.7 91 20 125/72 98 Nasal Cannula 3.00 3.00 03/18/16 04:00 98.4 87 16 146/78 96 Nasal Cannula 3.00 03/18/16 04:00 Room Air 03/18/16 01:00 87 03/18/16 00:35 96.2 89 17 110/62 98 Nasal Cannula 3.00 03/18/16 00:00 Room Air 03/17/16 21:00 97 Nasal Cannula 2.00 03/17/16 20:45 97.3 102 18 139/72 95 Nasal Cannula 3.00 03/17/16 19:00 98 03/17/16 15:30 Room Air 03/17/16 15:20 96.8 94 18 117/69 96 Nasal Cannula 3.00 03/17/16 12:50 100 03/17/16 12:00 Room Air 03/17/16 11:25 97.2 97 18 124/69 97 Nasal Cannula 3.00 03/17/16 08:15 96.7 91 20 139/82 97 Room Air 03/17/16 08:15 97 Room Air I & O 03/18/16 07:00 Intake Total 1500 ml Output Total 650 ml Balance 850 ml Capillary Refill : Less Than 3 Seconds General Appearance: No Apparent Distress WD/WN HEENT: PERRL/EOMI Pharynx Normal Neck: Full Range of Motion Supple Respiratory: Chest Non Tender Lungs Clear Normal Breath Sounds Cardiovascular: Regular Rate, Rhythm Gastrointestinal: normal bowel sounds non tender soft no organomegaly no pulsatile mass Extremity: No Pedal Edema Neurologic/Psychiatric: Alert Oriented x3 Normal Mood/Affect standards analyst II-XII Norm as Tested Skin: Warm/Dry Lymphatic: No Adenopathy Results Lab Laboratory Tests 03/18/16 05:34: Anion Gap 10, BUN/Creatinine Ratio 25, Blood Urea Nitrogen 16, Calcium Level 8.5 , Carbon Dioxide Level 25, Chloride Level 106, Creatinine 0.65, Estimat Glomerular Filtration Rate > 60, Glucose Level 97, Hematocrit 40, Hemoglobin 12.8, Mean Corpuscular Hemoglobin 31, Mean Corpuscular Hemoglobin Concent 32, Mean Corpuscular Volume 96, Mean Platelet Volume 9.6, Platelet Count 128L, Potassium Level 3.5L, Red Blood Count 4.14L, Red Cell Distribution Width 12.6, Sodium Level 141, White Blood Count 4.3 Assessment/Plan Assessment/Plan Assess & Plan/Chief Complaint NEW ONSET HEART FAILURE LEFT BUNDLE BRANCH BLOCK DYSPNEA HX COLON CANCER HX BREAST CANCER WITH BILATERAL MASTECTOMY HYPERTENSION PT ADMITTED WITH NEW ONSET HEART FAILURE - IMPROVED BNP. WILL DEFER TREATMENT TO CARDIOLOGY - DR. CATHERINE CONSULTED ON THE CASE - PER STAFF REPORT -PT TO HAVE HEART CATHETERIZATION TODAY, WAITING ON THESE RESULTS FOR DETERMINATION OF PLAN DYSPNEA - WILL CHECK AMBULATORY OXYGEN ON THIS PATIENT PRIOR TO DISCHARGE, AND OVERNIGHT OXYGEN WELL TO SEE IF SHE QUALIFIES FOR OXYGEN AT HOME. HYPERTENSION - STABLE- DEFER TO CARDIOLOGY Diagnosis/Problems: Clinical Quality Measures DVT/VTE Risk/Contraindication: Risk Factor Score Per Nursin RFS Level Per Nursing on Admit: 4+=Very High NICOLE BOLAÑOS MD Mar 18, 2016 08:08
[2016-03-18] MEDS: AZILECT 1 MG TAB PO SCH ×2 (08:16→09:29)
[2016-03-18] MEDS: OMEGA 3 (FISH OIL) 1000 MG CAP PO SCH ×2 (08:16→09:28)
[2016-03-18] MEDS: SINEMET 25/100 (CARBIDOPA/LEVODOPA) TAB PO SCH ×4 (08:17→21:20)
[2016-03-18] MEDS: VITAMIN D3 400 UNITS (CHOLECALCIFEROL) TABLET PO SCH ×2 (08:17→09:28)
[2016-03-18] MEDS: ASPIRIN E.C. 325 MG (ECOTRIN) TABLET PO SCH (09:28)
[2016-03-18] MEDS ORDERED: diphenhydrAMINE 50 MG/ML INJ (BENADRYL) ONE (12:16)
[2016-03-18] MEDS ORDERED: MIDAZOLAM 5 MG/5 ML (VERSED) VIAL ONE (12:16)
[2016-03-18] MEDS ORDERED: fentaNYL INJECTION 100 MCG/2 ML AMP ONE (12:16)
--- NOTE | 2016-03-18 13:16 | Cardiology Progress Note ---
Cardiology SOAP Progress Note Subjective: shortness of breath better Objective: I&O/Vital Signs Vital Sign - Last 12Hours 03/18/16 03/18/16 03/18/16 03/18/16 04:00 04:00 07:00 08:01 Temp 98.4 96.7 Pulse 87 93 91 Resp 16 20 B/P 146/78 125/72 Pulse Ox 96 98 O2 Delivery Room Air Nasal Cannula Nasal Cannula O2 Flow Rate 3.00 3.00 3.00 03/18/16 03/18/16 03/18/16 03/18/16 08:06 09:00 11:56 12:00 Temp 96.7 97.2 Pulse 91 86 Resp 20 18 B/P 125/72 120/70 Pulse Ox 98 97 O2 Delivery Nasal Cannula Nasal Cannula Nasal Cannula Room Air O2 Flow Rate 3.00 2.00 3.00 3.00 3.00 Intake and Output 03/18/16 00:00 Intake Total 1100 ml Output Total 250 ml Balance 850 ml Weight (Pounds): 134 Weight (Ounces): 5.0 Weight (Calculated Kilograms): 60.780525 Constitutional: No appears stated age, No AAO x 3, No apparent distress, No PERRL, No well-developed, No well-nourished, No other Respiratory: No accessory muscle use, No respiratory distress, No chest tender , No chest expansion is symmetric, No chest is bilaterally symmetric, No lungs clear to percussion, No lungs clear to auscultation, No crackles, No rhonchi, No rales, No stridor, No wheezing, No pleural rub, No other Cardiovascular: No regular rate-rhythm, No irregularly irregular, No extra beats, No parasternal heave is noted, No JVD, No edema, No bradycardia, No tachycardia, No point of maximal impulse, No cardiac thrills are palpable, No S1 and S2, No gallop/S3, No gallop/S4, No diastolic murmur, No systolic murmur, No friction rub, No click, No other Gastrointestional: No tender, No soft, No round, No distended, No pulsatile mass, No organomegaly, No guarding, No rebound, No tenderness, No hernia, No mass, No audible bowel sounds, No abnormal bowel sounds, No abdominal bruits, No spleenomegaly, No other Extremities: No normal range of motion, No non-tender, No normal inspection, No pedal edema, No calf tenderness, No normal capillary refill, No pelvis stable , No calf tenderness, No inflammation, No pedal edema, No slow capillary refill , No swelling, No other, No abrasion, No clubbing, No cyanosis, No ecchymosis, No laceration, No no lower extremity edema bilateral, No significant edema, No tenderness, No wound Neurologic/Psychiatric: No finishing supervisor II-XII nml as tested, No no motor/sensory deficits, No alert, No normal mood/affect, No oriented x 3, No abnormal cerebellar tests, No abnormal finishing supervisor II-XII, No abnormal gait, No aphasia, No EOM palsy, No facial droop, No motor weakness, No sensory deficit, No depressed affect, No disoriented x 3, No other, No grossly intact, No power is 5/5 both on sides Skin: No normal color, No warm/dry, No cyanosis, No cool, No diaphoresis, No damp, No ecchymosis, No jaundice, No mottled, No pallor, No rash, No tattoos/ piercings, No ulcerations, No rash on exposed areas, No ulcerations on exposed areas, No other Results/Procedures: Labs Laboratory Tests 03/18/16 05:34: Anion Gap 10, BUN/Creatinine Ratio 25, Blood Urea Nitrogen 16, Calcium Level 8.5 , Carbon Dioxide Level 25, Chloride Level 106, Creatinine 0.65, Estimat Glomerular Filtration Rate > 60, Glucose Level 97, Hematocrit 40, Hemoglobin 12.8, Mean Corpuscular Hemoglobin 31, Mean Corpuscular Hemoglobin Concent 32, Mean Corpuscular Volume 96, Mean Platelet Volume 9.6, Platelet Count 128L, Potassium Level 3.5L, Red Blood Count 4.14L, Red Cell Distribution Width 12.6, Sodium Level 141, White Blood Count 4.3 A/P: Assessment/Dx: acute systolic CHF Plan: CHF - agree with lasix. strict I/O. daily weight. fluid restriction x 1.5 liters. low salt. HTN- Previous cath done at [facility] in 2012 which shows normal LVEF and normal coronaries. Our Echo shows a new LV dysfunction with EF 35-40%. Coronary angiography is required to r/o CAD. Plan for today Ottoniel CATHERINE MD Mar 18, 2016 1:16 pm
--- NOTE | 2016-03-18 13:51 | Cardiac Procedure Note-CS/ASA ---
Pre-Procedure Note Pre-Op Procedure Note H&P Reviewed The H&P was reviewed, patient examined and no changes noted. Date H&P Reviewed: Mar 18, 2016 Time H&P Reviewed: 12:00 Conscious Sedation Pre-Proced Time Reviewed: 12:00 ASA Class: 2 Airway Mallampati Classification: (wilton appropriate class) I. II. III, IV Lungs Heart ASA score ASA 1: a normal healthy patient ASA 2: a patient with a mild systemic disease (mid diabetes, controlled hypertension, obesity ASA 3: a patient with a severe systemic disease that limits activity (angina , COPD, prior Myocardial infarction) ASA 4: a patient with an incapacitating disease that is a constant threat to life (CHF, renal failure) ASA 5: a moribund patient not expected to survive 24 hrs. (ruptured aneurysm) ASA 6: a declared brain patient whose organs are being harvested. For emergent operations, add the letter E after the classification Grade 1 Sedation Plan: Analgesia, Amnesia, Plan communicated to team members, Discussed options with patient/fam, Discussed risks with patient/fam Note The patient is an appropriate candidate to undergo the planned procedure, sedation, and anesthesia. The patient immediately re-assessed prior to indication. Ottoniel CATHERINE MD Mar 18, 2016 1:51 pm
--- NOTE | 2016-03-18 13:53 | Progress Note-Post Operative ---
Post-Operative Progess Note Pre-Operative Diagnosis Moderate new onset Cardiomyopathy Post-Operative Diagnosis Patent epicardial coronary arteries Post-Op Procedure Note Date of Procedure: Mar 18, 2016 Name of Procedure: LHC, Coronary angiography Procedure Note/Findings patent epicardial coronary arteries Anesthesia Type local anesthesia, conscious sedation Estimated blood loss (mL): 10 ml Packing: none Specimen(s) collected none Ottoniel CATHERINE MD Mar 18, 2016 1:53 pm
[2016-03-18] MEDS ORDERED: PATIENT MAY USE OWN MEDS, ALL PO SCH (14:00)
[2016-03-18] MEDS: NS IV 1000 ML 1,000 ML IV SCH ×3 (14:21→23:53)
[2016-03-18] MEDS ORDERED: KCL 20 MEQ TAB (K-DUR) PO NR (15:00)
[2016-03-18] MEDS: SERTRALINE 50 MG (ZOLOFT) TABLET PO SCH (21:20)
[2016-03-18] MEDS: meTOprolol TARTRATE 25 MG (LOPRESSOR) TABLET PO SCH (21:20)
[2016-03-19] VITALS: BP 124/69
[2016-03-19 04:00] VITALS: BP 119/65
[2016-03-19 04:24] LABS: RED BLOOD COUNT 3.9 10^6/uL (4.35-5.85); RED CELL DISTRIBUTION WIDTH 12.6 % (10.0-14.5); WHITE BLOOD COUNT 3.7 10^3/uL (4.3-11.0)
[2016-03-19 04:50] LABS: ANION GAP 9 MMOL/L (5-14); BLOOD UREA NITROGEN 15 MG/DL (7-18); BUN/CREATININE RATIO 22; CALCIUM 8.5 MG/DL (8.5-10.1); CARBON DIOXIDE 24 MMOL/L (21-32); CHLORIDE 108 MMOL/L (98-107); CREATININE SERUM 0.68 MG/DL (0.60-1.30); GFR ESTIMATED > 60; GLUCOSE 89 MG/DL (70-105); POTASSIUM 3.7 MMOL/L (3.6-5.0); SODIUM 141 MMOL/L (135-145)
[2016-03-19 07:43] VITALS: BP 147/82
[2016-03-19] MEDS: ENOXAPARIN 60 MG/0.6 ML (LOVENOX) SYR SC SCH (07:46)
[2016-03-19] MEDS ORDERED: LISI-556 PO (08:22)
[2016-03-19] MEDS ORDERED: METO-333 PO (08:22)
--- NOTE | 2016-03-19 08:26 | Discharge Inst-Complex ---
PDI Med Rec & Follow Up Appt. New Medications: Lisinopril (Lisinopril) 5 Mg Tablet 5 MG PO DAILY #90 Ref 3 TAB Metoprolol Tartrate (Metoprolol Tartrate) 25 Mg Tablet 12.5 MG PO BID #90 Ref 3 TAB Continued Medications: Aspirin (Aspirin EC) 81 Mg Tablet.dr 81 MG PO MoWeFr TAB Calcium Carbonate/Vitamin D3 (Calcium 500 + Vit D Caplet) 1 Each Tablet 1 TAB PO DAILY TAB Carbidopa/Levodopa (Carbidopa-Levodopa 25-100 Tab) 1 Each Tablet 2 TAB PO BID TAB Carbidopa/Levodopa (Carbidopa-Levodopa 25-100 Tab) 1 Each Tablet 3 TAB PO 1200 TAB Cholecalciferol (Vitamin D3) (Vitamin D3) 400 Unit Tablet 400 UNIT PO DAILY TAB Multivitamin (Daily Multiple Vitamin) 1 Each Tablet 1 TAB PO DAILY TAB Nitroglycerin (Nitrostat) 0.4 Mg Tab.subl 0.4 MG SL UD PRN CHEST PAIN TAB Lynwood-3 Fatty Acids (Lynwood-3) 1,000 Mg Capsule 1000 MG PO DAILY CAP Omeprazole (Omeprazole) 20 Mg Capsule.dr 20 MG PO DAILY PRN ACID REFLUX CAP Pramipexole Di-HCl (Mirapex) 0.25 Mg Tablet 0.5 TAB PO BID PRN RESTLESS LEGS TAB Rasagiline Mesylate (Azilect) 1 Mg Tablet 1 MG PO DAILY TAB Sertraline HCl (Sertraline HCl) 50 Mg Tablet 50 MG PO HS TAB Vitamin B Complex & Vit C No.4 (Super B Complex) 150 Mg Tablet 150 MG PO DAILY TAB Prescription: Transmitted to Pharmacy Goal: WATER RESTRICTION OF 1.5 LITERS DAILY Activity, Diet and PDI Discharge Diet: Low Sodium Diet Return to The Hospital For: ANY CONCERN FOR WORSENING CONDITION OR LIFETHREATENING ILLNESS OR INJURY Symptoms to Reoprt to : Appetite Changes, Fever Over 101 Degrees F, Pain/ Pressure in Chest, Dizziness/Fainting, Shortness of Breath For Problems or Questions: Contact Your Physician, Go to Emergency Room NICOLE BOLAÑOS MD Mar 19, 2016 08:26
--- NOTE | 2016-03-19 08:27 | Discharge Summary ---
Diagnosis/Chief Complaint Date of Admission Mar 15, 2016 at 17:40 Date of Discharge Discharge Date: Mar 19, 2016 Discharge Time: 1000 Admission Diagnosis Admission Diagnosis NEW ONSET HEART FAILURE LEFT BUNDLE BRANCH BLOCK DYSPNEA HX COLON CANCER HX BREAST CANCER WITH BILATERAL MASTECTOMY HYPERTENSION Discharge Diagnosis NEW ONSET HEART FAILURE LEFT BUNDLE BRANCH BLOCK DYSPNEA HX COLON CANCER HX BREAST CANCER WITH BILATERAL MASTECTOMY HYPERTENSION Reason Hospital Visit PT IS AN 81 Y/O FEMALE WHO IS KNOWN TO ME FROM CLINIC. THE PATIENT'S CALLED ME ON 03/15/15 AT AROUND 1030 WANTING ME TO ORDER HER OXYGEN FOR HOME USE. I INFORMED HIM THAT IF SHE WAS IN NEED OF OXYGEN AND THIS IS A NEW DEVELOPMENT , HE NEEDED TO TAKE HER IN TO THE EMERGENCY DEPARTMENT FOR EVALUATION. HE REPORTED TO ME THAT SHE DID NOT WANT TO GO TO THE EMERGENCY ROOM AT THIS TIME AND THEY WOULD DECIDE LATER IF SHE NEEDED TO GO. I AGAIN ENCOURAGED HIM TO CONSIDER THE EMERGENCY DEPARTMENT IF THEY FELT LIKE SHE WAS HAVING WORSENING ISSUES OR HER SYMPTOMS DID NOT IMPROVE. THE PATIENT APPARENTLY STARTED TO HAVE INCREASED SHORTNESS OF BREATH, WAS TRANSPORTED TO THE EMERGENCY DEPARTMENT WHERE SHE WAS FOUND TO HAVE A NEW LEFT BUNDLE BRANCH BLOCK AND ACUTE HEART FAILURE. Discharge Summary Discharge Physical Examination Allergies: Coded Allergies: Penicillins (Verified Allergy, Mild, 08/05/13) Vitals & I&Os General Appearance: Alert, Oriented X3, Cooperative HEENT: Atraumatic Respiratory: Clear to Auscultation Cardiovascular: Regular Rate Abdominal: Normal Bowel Sounds, Soft Extremities: No Clubbing, Other (EDEMA BILATERAL LOWER EXTREMITIES) Neuro: Normal Speech, Other (RIGIDITY) Psych/Mental Status: Mental Status NL, Mood NL Hospital Course NEW ONSET HEART FAILURE LEFT BUNDLE BRANCH BLOCK DYSPNEA HX COLON CANCER HX BREAST CANCER WITH BILATERAL MASTECTOMY HYPERTENSION PT ADMITTED WITH NEW ONSET HEART FAILURE - IMPROVED BNP. WILL DEFER TREATMENT TO CARDIOLOGY - DR. CATHERINE CONSULTED ON THE CASE - PER STAFF REPORT -PT TO HAVE HEART CATHETERIZATION TODAY, WAITING ON THESE RESULTS FOR DETERMINATION OF PLAN DYSPNEA - WILL CHECK AMBULATORY OXYGEN ON THIS PATIENT PRIOR TO DISCHARGE, AND OVERNIGHT OXYGEN WELL TO SEE IF SHE QUALIFIES FOR OXYGEN AT HOME. - PT DID QUALIFY FOR OXYGEN AT HOME, MONITOR SYMPTOMS AT HOME WITH HOME HEALTH HYPERTENSION - STABLE- DEFER TO CARDIOLOGY SEE CARDIOLOGY REPORT FROM PROCEDURE REPORT/PROGRESS NOTES. Pending Labs Discharge Condition at discharge IMPROVING. Instructions to patient/family Please see electonic discharge instructions given to patient. Discharge Medications Reviewed and agree with Discharge Medication list on patient's Discharge Instruction sheet Clinical Quality Measures DVT/VTE Risk/Contraindication: Risk Factor Score Per Nursin RFS Level Per Nursing on Admit: 4+=Very High NICOLE BOLAÑOS MD Mar 19, 2016 08:27
[2016-03-19] MEDS ORDERED: lisINopril 5 MG (PRINIVIL) TABLET PO SCH (09:00)
[2016-03-19] MEDS: AZILECT 1 MG TAB PO SCH (09:30)
[2016-03-19] MEDS: SINEMET 25/100 (CARBIDOPA/LEVODOPA) TAB PO SCH (09:30)
[2016-03-19] MEDS: VITAMIN D3 400 UNITS (CHOLECALCIFEROL) TABLET PO SCH (09:30)
[2016-03-19] MEDS: OMEGA 3 (FISH OIL) 1000 MG CAP PO SCH (09:30)
[2016-03-19] MEDS: meTOprolol TARTRATE 25 MG (LOPRESSOR) TABLET PO SCH (09:31)
--- NOTE | 2016-03-19 11:16 | Cardiology Progress Note ---
Cardiology SOAP Progress Note Subjective: Significantly improved shortness of breath. Objective: I&O/Vital Signs Vital Sign - Last 12Hours 03/19/16 03/19/16 03/19/16 03/19/16 00:00 00:00 01:00 04:00 Temp 97.8 97.0 Pulse 90 89 89 Resp 16 16 B/P 124/69 119/65 Pulse Ox 96 96 O2 Delivery Room Air Room Air Room Air 03/19/16 03/19/16 03/19/16 03/19/16 04:00 07:00 07:40 07:40 Pulse 113 O2 Delivery Room Air Room Air Nasal Cannula O2 Flow Rate 2.00 03/19/16 07:43 Temp 97.2 Pulse 98 Resp 20 B/P 147/82 Pulse Ox 93 O2 Delivery Room Air Intake and Output 03/19/16 00:00 Intake Total 340 ml Output Total 200 ml Balance 140 ml Weight (Pounds): 135 Weight (Ounces): 5.0 Weight (Calculated Kilograms): 61.137113 Constitutional: No appears stated age, No AAO x 3, No apparent distress, No PERRL, No well-developed, No well-nourished, No other Respiratory: No accessory muscle use, No respiratory distress, No chest tender , No chest expansion is symmetric, No chest is bilaterally symmetric, No lungs clear to percussion, No lungs clear to auscultation, No crackles, No rhonchi, No rales, No stridor, No wheezing, No pleural rub, No other Cardiovascular: No regular rate-rhythm, No irregularly irregular, No extra beats, No parasternal heave is noted, No JVD, No edema, No bradycardia, No tachycardia, No point of maximal impulse, No cardiac thrills are palpable, No S1 and S2, No gallop/S3, No gallop/S4, No diastolic murmur, No systolic murmur, No friction rub, No click, No other (normal right groin examination with no bruit on auscultation) Gastrointestional: No tender, No soft, No round, No distended, No pulsatile mass, No organomegaly, No guarding, No rebound, No tenderness, No hernia, No mass, No audible bowel sounds, No abnormal bowel sounds, No abdominal bruits, No spleenomegaly, No other Extremities: No normal range of motion, No non-tender, No normal inspection, No pedal edema, No calf tenderness, No normal capillary refill, No pelvis stable , No calf tenderness, No inflammation, No pedal edema, No slow capillary refill , No swelling, No other, No abrasion, No clubbing, No cyanosis, No ecchymosis, No laceration, No no lower extremity edema bilateral, No significant edema, No tenderness, No wound Neurologic/Psychiatric: No auto fleet maintenance manager II-XII nml as tested, No no motor/sensory deficits, No alert, No normal mood/affect, No oriented x 3, No abnormal cerebellar tests, No abnormal auto fleet maintenance manager II-XII, No abnormal gait, No aphasia, No EOM palsy, No facial droop, No motor weakness, No sensory deficit, No depressed affect, No disoriented x 3, No other, No grossly intact, No power is 5/5 both on sides Skin: No normal color, No warm/dry, No cyanosis, No cool, No diaphoresis, No damp, No ecchymosis, No jaundice, No mottled, No pallor, No rash, No tattoos/ piercings, No ulcerations, No rash on exposed areas, No ulcerations on exposed areas, No other Results/Procedures: Labs Laboratory Tests 03/19/16 03:39: Anion Gap 9, BUN/Creatinine Ratio 22, Blood Urea Nitrogen 15, Calcium Level 8.5 , Carbon Dioxide Level 24, Chloride Level 108H, Creatinine 0.68, Estimat Glomerular Filtration Rate > 60, Glucose Level 89, Hematocrit 38, Hemoglobin 12.2, Mean Corpuscular Hemoglobin 31, Mean Corpuscular Hemoglobin Concent 32, Mean Corpuscular Volume 97, Mean Platelet Volume 10.0, Platelet Count 128L, Potassium Level 3.7, Red Blood Count 3.90L, Red Cell Distribution Width 12.6, Sodium Level 141, White Blood Count 3.7L A/P: Assessment/Dx: acute systolic CHF, No significant coronary artery disease, Nonischemic cardiomyopathy Plan: CHF - agree with lasix. strict I/O. daily weight. fluid restriction x 1.5 liters. low salt. HTN- Previous cath done at [facility] in 2012 which shows normal LVEF and normal coronaries. Our Echo shows a new LV dysfunction with EF 35-40%. Coronary angiography is required to r/o CAD. Coronary angiography revealed patent epicardial coronary vessels. Right groin normal. Nonischemic cardiomyopathy: Start metoprolol and NICOLE inhibitor. Okay to discharge and follow in office with me in around 2 weeks. Thank you for your consultation. Please call me if you have any questions. Moises García MD, FACP, FACC, FSCAI, FHRS, CCDS Interventional Cardiology Cardiac Electrophysiology Vascular Medicine and Endovascular Interventions Ottoniel GARCÍA MD Mar 19, 2016 11:16
[2016-03-19 11:50] VITALS: BP 107/66
--- NOTE | 2016-03-19 11:56 | ECHOCARDIOGRAPHY REPORT ---
PROCEDURE PHYSICIAN: LATISHA GARCÍA DATE OF PROCEDURE: 03/16/2016 TWO DIMENSIONAL ECHOCARDIOGRAM REPORT PRIMARY PHYSICIAN: OTHER PHYSICIAN: REFERRING PHYSICIAN: ORDERING PHYSICIAN: Dr. Robert García ATTENDING PHYSICIAN: Dr. Jazz Bonds FAMILY PHYSICIAN: READING PHYSICIAN: INDICATION FOR THE PROCEDURE: Congestive heart failure, new cardiomyopathy, chest pain. MEASUREMENTS DERIVED VALUES LV DIAMETER (LAX) NORMALS NORMALS Diastolic (3.6-5.2) Eject. Fract. (60%+/-6%) Systolic (2.3-3.9) Diastolic Vol. % Shortening (0.22-0.42) Systolic Vol. Aortic Root IVS THICKNESS Diastolic (0.6-1.1) LVPW THICKNESS Diastolic (0.6-1.1) LA DIAMETER Systolic (2.1-3.7) FINDINGS: 1. Sinus rhythm. 2. Left atrial size is borderline enlarged. Left atrial size diameter is 4 cm. 3. Aortic root is normal. 4. LV function is mildly reduced with an EF of 35 to 40%. No LVH is present. 5. Global hypokinesis is noted. 6. RV size and function is normal. 7. IVC is 1.1 cm. 8. There is no pericardial effusion. 9. There is no significant diastolic dysfunction. VALVULAR STRUCTURE OF THE HEART: The mitral valve is thickened with mitral regurgitation. There is a mobile mass seen with the mitral valve leaflet which may be possibly chordae rupture, however, there is no significant mitral regurgitation. It could be vegetation but there is no clinical evidence for infective endocarditis. There is mild tricuspid regurgitation with RVSP of 46 mmHg. There is no significant aortic valve or pulmonic pathology. CONCLUSION: 1. Mildly reduced LV function with an EF of 35 to 40%. Mild pulmonary hypertension is present within RVSP 46 mmHg. 2. There is a mobile mass noted in the anterior mitral leaflet. Differential include: Chordae rupture but there is no significant mitral regurgitation. Or it could be vegetation; however, there is no clinical manifestation of infective endocarditis. Job ID: [id number] Dictated Date: 03/18/2016 21:09:39 Deputy Administrator Date: 03/19/2016 11:42:58 / kjjoey [place]
[2016-03-19 12:00] VITALS: BP 107/66
--- NOTE | 2016-03-22 05:44 | CARDIAC CATHETERIZATION ---
PROCEDURE PHYSICIAN: LATISHA CATHERINE DATE OF PROCEDURE: 03/18/2016 CORONARY ANGIOGRAPHY REPORT: PRIMARY PHYSICIAN: Dr. Jazz Bonds. INDICATION: New onset cardiomyopathy. PREOPERATIVE DIAGNOSIS: New onset cardiomyopathy. POSTOPERATIVE DIAGNOSES: Nonischemic cardiomyopathy with patent epicardial coronary arteries. HISTORY: Ms. Pro is an 81-year-old lady with previous history of breast and colon cancer status post chemotherapy. She had a previous angiogram done in [place] in 2012, which showed normal LV function and normal blood vessels. She presented with congestive heart failure and echocardiogram showed an EF of 35 to 40%. The patient was scheduled for coronary angiography to evaluate etiology of the new onset cardiomyopathy. PROCEDURE PERFORMED: 1. Coronary angiography. 2. Left heart catheterization. COMPLICATIONS: None. SPECIMEN: None. ESTIMATED BLOOD LOSS: 10 mL. FINAL RESULTS: Excellent. ANTICOAGULATION: None. CONTRAST: 52 mL of Omnipaque. FLUOROSCOPY: 2.2 minutes. FLUOROSCOPY DOSE: 78 mGy PROCEDURE DETAILS: The patient was brought to the Lead Scientist after informed consent was taken. All the risks and complications were explained in detail which include bleeding, vascular damage, CVA, IN and even . Once the patient and family accepted the risks and complications, the patient was taken to the Lead Scientist. The patient was draped and prepped in the usual sterile fashion. We had performed an Gregor's test, but found it to be abnormal. Therefore, radial access was not gained. We gained access in the right femoral artery with a 5-Moldovan sheath. LV gram was performed with a JR4 catheter and RCA was engaged with a JR4 catheter. Left coronary system was engaged with a JL4 catheter. FINDINGS: 1. Left main: Patent. 2. LAD: Patent. 3. Left circumflex artery: Patent. 4. RCA: Patent. 5. Cardiac catheterization: Aortic pressure 85/52 mmHg. LV pressure 105 mmHg. LVEDP 12 mmHg. Mild to moderate LV ejection fraction reduction with an EF of around 40 to 45%. No significant wall motion abnormalities. No significant regional wall motion abnormalities. No gradient across the aortic valve. CONCLUSION: 1. Patent epicardial coronary arteries. 2. Nonischemic cardiomyopathy. 3. Aggressive medical therapy for cardiomyopathy is recommended. Job ID: [id number] Dictated Date: 03/18/2016 14:22:44 Residential Direct Support Professional Date: 03/22/2016 05:38:56 / ronnie [place]
== END 2016-03-19 12:00 | disposition home or self-care (01) | DRG 287 ==
LOC: EDUNIT# 14:18 → ER 14:20 → CSD 17:40
PROVIDERS: ADMIT Family Medicine; ATTEND Family Medicine
PROC: 4A023N7 Measurement of Cardiac Sampling and Pressure, Left Heart, Percutaneous Approach (ICD-10-PCS; principal; 2016-03-18)
PROC: B2151ZZ Fluoroscopy of Left Heart using Low Osmolar Contrast (ICD-10-PCS; 2016-03-18)
PROC: B2111ZZ Fluoroscopy of Multiple Coronary Arteries using Low Osmolar Contrast (ICD-10-PCS; 2016-03-18)
DX: I11.0 Hypertensive heart disease with heart failure (principal); I50.21 Acute systolic (congestive) heart failure; I42.9 Cardiomyopathy, unspecified; I44.7 Left bundle-branch block, unspecified; R07.9 Chest pain, unspecified; E78.00 Pure hypercholesterolemia, unspecified; M06.9 Rheumatoid arthritis, unspecified; M19.90 Unspecified osteoarthritis, unspecified site; Z66 Do not resuscitate; I27.2 Other secondary pulmonary hypertension; G20 Parkinson's disease; K21.9 Gastro-esophageal reflux disease without esophagitis; N39.3 Stress incontinence (female) (male); M54.9 Dorsalgia, unspecified; Z85.038 Personal history of other malignant neoplasm of large intestine; Z85.3 Personal history of malignant neoplasm of breast; Z90.49 Acquired absence of other specified parts of digestive tract; Z90.13 Acquired absence of bilateral breasts and nipples; Z92.21 Personal history of antineoplastic chemotherapy
CPT/HCPCS: 36415; 71010; 80048; 80053; 80061; 82550; 82553; 82805; 83735; 83874; 83880; 84484; 85025; 85027; 85610; 85730; 93005; 93041; 93306; 93458; 94761; 96372; 96374

== ENCOUNTER → 2016-04-19 | Outpatient (CLI) | payer MEDICARE, OTHER ==
[~2016-04-19] MED LIST changes: +ASPI-983 PO; +CALC-78 PO; +CARB1TAB19 PO; +CHOL400T PO; +LISI-556 PO; +METO-333 PO; +MULT-35 PO; +NITR0.4T SL; +OMEG10005 PO; +OMEP2.5S PO; +PRAM0.252 PO; +VITA150T PO
--- OUTSIDE RECORDS SUMMARY | 2016-04-19 11:56 | XMS REPORT | Continuity of Care Document ---
Author Author [facility] Organization [facility] Address Unknown Phone Unavailable Care Team Providers Care Trade Promotion Analyst Name Role Phone Ping Bonds PCP [phone] Source Comments Some departments are not documenting in the electronic medical record. If you do not see the information that you expected, contact Release of Information in the Health Information Management department at [phone] for further assistance in locating additional records.[facility] Active Allergies and Adverse Reactions Allergen [...] 25/100 mg three times daily. 16 tablet sertraline (ZOLOFT) 50 mg Take 1 Tab by mouth 90 Tab 0 11/27/19 Active tablet daily. 16 rasagiline(+) (AZILECT) 1 Take 1 Tab by mouth 90 Tab 0 04/12/19 Active mg tablet daily. 17 rasagiline(+) (AZILECT) 1 Take 1 Tab by mouth 90 Tab 0 11/27/19 Discontin mg tablet daily. 16 17 ued Active Problems Problem Noted Date Depression 04/28/2015 Overview: On Zoloft (sertraline) L ast Assessment & Plan: Her symptoms are stable. No medication changes were recommended during the current visit. RLS (restless legs syndrome) 10/07/2014 Last Assessment & Plan: Her symptoms are stable. No medication changes were recommended during the current visit. Parkinsonism ([facility]) 07/09/2014 Overview: Symptoms began in 2009, initial [...] Physical Therapy. Hypophonia 10/12/2013 Parkinson disease ([facility]) 07/19/2013 Gait instability 06/08/2013 Most Recent Encounters Date Type Specialty Providers Description 04/12/2016 Refill Neurology Rah Cruz MD Parkinson disease ([facility]) (Primary Dx) Social History Tobacco Use Types Packs/Day Years Used Date Never Smoker Smokeless Tobacco: Never Used Alcohol Use Drinks/Week oz/Week Comments No Last Filed Vital Signs Vital Sign Reading Time Taken Blood Pressure 171/81 04/28/2015 1:05 PM ATMOSPHERIC DRIER TENDER Pulse 81 04/28/2015 1:05 PM ATMOSPHERIC DRIER TENDER Temperature 36.4 C (97.6 F) 05/20/2014 10:50 AM CDT Respiratory Rate - - Height 1.74 m (5' 8.5") 04/28/2015 1:05 PM ATMOSPHERIC DRIER TENDER Weight 64 kg (141 lb 1.5 oz) 04/28/2015 1:05 PM ATMOSPHERIC DRIER TENDER Body Mass Index 21.14 04/28/2015 1:05 PM ATMOSPHERIC DRIER TENDER Oxygen Saturation 99% 05/20/2014 10:50 AM CDT Plan of Care Date Type Specialty Providers Description 06/22/2016 Appointment Neurology Rah Cruz MD [address] [facility] [address] [place] [address] [phone] (Fax) Health Maintenance Due Date Last Done Comments Physical (Comprehensive) 1942 Exam Pertussis Vaccine 1946 Tetanus Vaccine 01/07/1952 Shingles Vaccine 1995 Osteoporosis Screening 01/07/2000 Prevnar/Pneumovax (#1) 01/07/2000 Influenza Vaccine 11/13/2015 Results from Last 3 Months Not on file
--- NOTE | 2016-04-19 14:27 | Diagnostic Imaging Report ---
PROCEDURE: CT chest without contrast. TECHNIQUE: Multiple contiguous axial images were obtained through the chest without the use of intravenous contrast. INDICATION: Dyspnea for the last month. COMPARISON: 08/09/2014. DISCUSSION: Small layering right pleural effusion appears new. Underlying COPD is stable. Mild cardiomegaly is stable. There is mild interstitial thickening present which is likely due to chronic lung disease. Mild biapical capping is again noted. Subsegmental atelectasis is present within the bilateral lung bases. No focal consolidation otherwise identified. No mediastinal, hilar, or axillary adenopathy. Moderate hiatal hernia is stable. Cysts within the liver incompletely viewed though appears essentially stable. No acute osseous abnormality identified. IMPRESSION: 1. Small layering right pleural effusion, new. 2. Chronic changes as discussed above, stable otherwise. Dictated by: Dictated on workstation # [id number]
== END ==
LOC: RAD 11:52
PROVIDERS: ATTEND Internal Medicine Critical Care Medicine
DX: R06.02 Shortness of breath (principal); G20 Parkinson's disease
CPT/HCPCS: 71250; 94060; 94726; 94729

== ENCOUNTER → 2016-07-05 | Outpatient (CLI) | payer MEDICARE, OTHER ==
--- NOTE | 2016-07-07 10:16 | ECHOCARDIOGRAPHY REPORT ---
DATE OF SERVICE: 07/05/2016 PRIMARY PHYSICIAN: Dr. Bonds. ORDERING PHYSICIAN: Dr. Moises García. DIAGNOSES: Shortness of breath, nonischemic cardiomyopathy. FINDINGS: 1. Sinus rhythm. 2. Left atrial dimensions are enlarged. 3. Aortic root dimension is normal. 4. Left ventricular systolic function is 30 to 35%. Mild concentric LVH is present with diastolic Interventricular septal diameter 1.1 cm. Suspicion for noncompacted LV. 5. Global hypokinesis is noted. 6. Right atrial enlargement is noted. There is also right ventricular enlargement. 7. There is no evidence of pericardial effusion. 8. Mild diastolic dysfunction. 9. IVC is 1.8 cm, which is borderline enlarged. VALVULAR STRUCTURE OF THE HEART: There is mild tricuspid regurgitation with mild mitral regurgitation. RVSP is 20 mmHg. There is no significant aortic valve or pulmonic valve pathology. CONCLUSION: 1. Moderate LV systolic dysfunction with EF of 30 to 35%. 2. Global hypokinesis. 3. Noncompacted LV cardiomyopathy. 4. No significant pulmonary hypertension. 5. Mild diastolic dysfunction. 6. Mild concentric LVH. Compared to a previous echocardiogram done on 03/16/2016, EF is worse. Previous ejection fraction was 35 to 40%. Job ID: [id number] DocumentID: [id number] Dictated Date: 07/06/2016 16:11:10 Program Instructor Date: 07/07/2016 08:40:02 Dictated By: LATISHA GARCÍA MD MTDD
== END ==
LOC: CARD 12:03
PROVIDERS: ATTEND Internal Medicine Interventional Cardiology
DX: I42.0 Dilated cardiomyopathy (principal)
CPT/HCPCS: 93306

== ENCOUNTER 2016-08-30 11:01 | Outpatient (RCR) | payer MEDICARE, OTHER ==
[2016-07-21 14:25] LABS: BASOPHILS % (AUTO) 1 % (0-10); EOSINOPHILS # (AUTO) 0.1 10^3/uL (0.0-0.3); EOSINOPHILS % (AUTO) 2 % (0-10); LYMPHOCYTES # (AUTO) 1.3 X 10^3 (1.0-4.0); LYMPHOCYTES % (AUTO) 28 % (12-44); MEAN CORPUSCULAR HEMOGLOBIN 31 PG (25-34); MEAN CORPUSCULAR HGB CONC 32 G/DL (32-36); MEAN CORPUSCULAR VOLUME 96 FL (80-99); MEAN PLATELET VOLUME 10.2 FL (7.4-10.4); MONOCYTES # (AUTO) 0.4 X 10^3 (0.0-1.0); MONOCYTES % (AUTO) 8 % (0-12); NEUTROPHILS # (AUTO) 2.8 X 10^3 (1.8-7.8); NEUTROPHILS % (AUTO) 61 % (42-75); PLATELET COUNT 119 10^3/uL (130-400); RED BLOOD COUNT 4.44 10^6/uL (4.35-5.85); RED CELL DISTRIBUTION WIDTH 14.4 % (10.0-14.5); WHITE BLOOD COUNT 4.6 10^3/uL (4.3-11.0)
[2016-07-21 14:43] LABS: ALANINE AMINOTRANSFERASE 18 U/L (0-55); ALBUMIN 4.2 G/DL (3.2-4.5); ANION GAP 8 MMOL/L (5-14); ASPARTATE AMINO TRANSFERASE 29 U/L (5-34); BILIRUBIN,TOTAL 0.6 MG/DL (0.1-1.0); BLOOD UREA NITROGEN 20 MG/DL (7-18); BUN/CREATININE RATIO 24; CALCIUM 9.6 MG/DL (8.5-10.1); CARBON DIOXIDE 26 MMOL/L (21-32); CHLORIDE 107 MMOL/L (98-107); CREATININE SERUM 0.83 MG/DL (0.60-1.30); GFR ESTIMATED > 60; GLUCOSE 119 MG/DL (70-105); SODIUM 141 MMOL/L (135-145); TOTAL PROTEIN 6.9 G/DL (6.4-8.2)
[2016-08-30 12:29] LABS: BASOPHILS # (AUTO) 0.2 10^3/uL (0.0-0.1); BASOPHILS % (AUTO) 3 % (0-10); EOSINOPHILS # (AUTO) 0.1 10^3/uL (0.0-0.3); EOSINOPHILS % (AUTO) 2 % (0-10); LYMPHOCYTES # (AUTO) 0.9 X 10^3 (1.0-4.0); LYMPHOCYTES % (AUTO) 18 % (12-44); MEAN CORPUSCULAR HEMOGLOBIN 30 PG (25-34); MEAN CORPUSCULAR HGB CONC 30 G/DL (32-36); MEAN CORPUSCULAR VOLUME 99 FL (80-99); MEAN PLATELET VOLUME 10.2 FL (7.4-10.4); MONOCYTES # (AUTO) 0.5 X 10^3 (0.0-1.0); MONOCYTES % (AUTO) 9 % (0-12); NEUTROPHILS # (AUTO) 3.5 X 10^3 (1.8-7.8); NEUTROPHILS % (AUTO) 68 % (42-75); PLATELET COUNT 85 10^3/uL (130-400); RED BLOOD COUNT 3.86 10^6/uL (4.35-5.85); RED CELL DISTRIBUTION WIDTH 13.3 % (10.0-14.5); WHITE BLOOD COUNT 5.1 10^3/uL (4.3-11.0)
[2016-08-30 13:02] LABS: ALANINE AMINOTRANSFERASE 18 U/L (0-55); ALBUMIN 4.1 GM/DL (3.2-4.5); ANION GAP 10 MMOL/L (5-14); ASPARTATE AMINO TRANSFERASE 36 U/L (5-34); BILIRUBIN,TOTAL 0.6 MG/DL (0.1-1.0); BLOOD UREA NITROGEN 26 MG/DL (7-18); BUN/CREATININE RATIO 31 (0-20); CALCIUM 9.5 MG/DL (8.5-10.1); CARBON DIOXIDE 26 MMOL/L (21-32); CHLORIDE 106 MMOL/L (98-107); CREATININE SERUM 0.85 MG/DL (0.60-1.30); GFR ESTIMATED > 60; GLUCOSE 116 MG/DL (70-105); HEMOLYSIS 16 (-100-29); ICTERUS 0.9 (-100-1.9); LIPEMIA 6 (-100-49); POTASSIUM 4.4 MMOL/L (3.6-5.0); SODIUM 142 MMOL/L (135-145); TOTAL PROTEIN 6.5 GM/DL (6.4-8.2)
[2016-09-09] MEDS ORDERED: CEFD300C3 PO (16:23)
== END 2016-10-19 | disposition home or self-care (01) ==
LOC: ONC 11:01
PROVIDERS: ATTEND Internal Medicine Hematology & Oncology
DX: Z08 Encounter for follow-up examination after completed treatment for malignant neoplasm (principal); Z85.038 Personal history of other malignant neoplasm of large intestine; Z85.3 Personal history of malignant neoplasm of breast; G20 Parkinson's disease; Z79.899 Other long term (current) drug therapy
CPT/HCPCS: 36415; 80053; 82306; 82378; 85025; 99213

== ENCOUNTER 2016-09-09 14:08 | Emergency (ER) | payer MEDICARE, OTHER ==
[~2016-09-09] VITALS: Ht 177.8 cm; Wt 57.6 kg
--- OUTSIDE RECORDS SUMMARY | 2016-09-09 14:14 | XMS REPORT | Continuity of Care Document ---
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 If you do not see the information that you expected, contact Release of Information in the Health Information Management department at [phone] for further assistance in locating additional records.[facility] Active Allergies and Adverse Reactions Allergen Noted Date Severity Reactions Comments Penicillin G 07/09/2014 Medium RASH Current Medications Prescription Sig. Disp. Refills Start End Date Status Date MULTIVITAMIN PO Take by mouth. vibe Active omeprazole DR(+) Take 1 Cap by mouth 90 Cap 3 10/13/19 Active (PRILOSEC) 20 mg capsule daily. 14 aspirin EC 81 mg tablet Take 81 mg by mouth. (on Active Mon//Tue) other medication Take 1 Dose by mouth at Active bedtime daily. Patient is on (Oxygen 2.0ml) fluticasone-vilanterol Inhale by mouth twice Active (BREO ELLIPTA) 100-25 daily as needed. mcg/dose dsdv ALBUTEROL SULFATE Inhale by mouth four Active (VENTOLIN HFA IN) times daily as needed. ERGOCALCIFEROL (VITAMIN Take by mouth every 7 Active D2) (VITAMIN D PO) days. sertraline (ZOLOFT) 50 mg Take 1 Tab by mouth 90 Tab 0 11/27/19 Active tablet daily. 16 metoprolol tartrate Take 12.5 mg by mouth Active (LOPRESSOR) 25 mg tablet twice daily. LISINOPRIL PO Take by mouth daily. Active FUROSEMIDE (LASIX PO) Take by mouth. (on Active //Sat) potassium On Tues/Thurs/Sat Active carbidopa/levodopa TAKE TWO TABLETS BY MOUTH 540 Tab 3 07/29/19 Active (SINEMET) 25/100 mg THREE TIMES DAILY 17 tablet rasagiline(+) (AZILECT) 1 Take 1 Tab by mouth 90 Tab 3 08/20/19 Active mg tablet daily. 17 AZILECT 1 mg tablet Take 1 Tab by mouth 30 Tab 0 08/06/19 08/20/19 Discontin daily. 17 17 ued Active Problems Problem Noted Date [...] Percent: 21.88% 04/28/2015 PDQ8 Total %: 22 Patient was evaluated by Occupational Therapist, Capri Aiken. L ast Assessment & Plan: Her symptoms [...] Plan: I recommended Physical Therapy. Hypophonia 10/12/2013 Gait instability 06/08/2013 Most Recent Encounters Date Type Specialty Providers Description 08/19/2016 Refill Neurology Rah Cruz MD 08/05/2016 Telephone Neurology Rah Cruz MD General Question 07/27/2016 Refill Neurology Rah Cruz MD 06/22/2016 Office Visit Neurology Rah Cruz MD Primary Parkinsonism (HCC) (Primary Dx); Cognitive changes; Other depression; RLS (restless legs syndrome) Social History Tobacco Use Types Packs/Day Years Used Date Never Smoker Smokeless Tobacco: Never Used Alcohol Use Drinks/Week oz/Week Comments No Last Filed Vital Signs Vital Sign Reading Time Taken Blood Pressure 122/67 06/22/2016 9:47 AM CDT Pulse 78 06/22/2016 9:47 AM CDT Temperature 36.4 C (97.6 F) 05/20/2014 10:50 AM CDT Respiratory Rate - - Height 1.735 m (5' 8.31") 06/22/2016 9:47 AM CDT Weight 59 kg (130 lb 1.1 oz) 06/22/2016 9:47 AM CDT Body Mass Index 19.6 06/22/2016 9:47 AM CDT Oxygen Saturation 99% 05/20/2014 10:50 AM CDT Plan of Care Health Maintenance Due Date Last Done Comments Physical (Comprehensive) 1942 Exam Pertussis Vaccine 1946 Tetanus Vaccine 01/07/1952 Shingles Vaccine 1995 Osteoporosis Screening 01/07/2000 Prevnar/Pneumovax (#1) 01/07/2000 Influenza Vaccine 11/12/2016 Results from Last 3 Months Not on file
--- OUTSIDE RECORDS SUMMARY | 2016-09-09 14:16 | XMS REPORT | Continuity of Care Document ---
Author Author [facility] Organization [facility] Address Unknown Phone Unavailable Allergies Active Description Code Type Severity Reaction Onset Reported/Identified Relationship to Patient Clinical Status Yes Penicillins [id number] Drug Allergy Mild N/A 08/05/2013 Medications Problems Date Dx Coded Attending Type Code Diagnosis Diagnosed By 08/22/2013 TEREZA SHARMA, ELOISE E Ot 276.1 08/22/2013 TEREZA SHARMA, ELOISE E Ot 276.8 08/22/2013 TEREZA SHARMA, ELOISE E Ot 311 08/22/2013 TEREZA SHARMA, ELOISE E Ot 332.0 08/22/2013 TEREZA SHARMA, ELOISE E Ot 401.9 08/22/2013 TEREZA SHARMA, ELOISE E Ot 530.81 08/22/2013 TEREZA SHARMA, ELOISE E Ot 714.0 08/22/2013 TEREZA SHARMA, ELOISE E Ot 715.31 08/22/2013 TEREZA SHARMA, ELOISE E Ot 719.45 08/22/2013 TEREZA SHARMA, ELOISE E Ot 787.02 08/22/2013 TEREZA SHARMA, ELOISE E Ot V57.89 03/11/2014 DOMINICK CAURSO MD Ot 276.1 06/07/2014 DOMINICK CARUSO MD Ot 780.79 06/14/2014 DOMINICK CARUSO MD M Ot 728.87 06/14/2014 DOMINICK CARUSO MD M Ot V57.1 06/17/2014 DOMINICK CARUSO MD M Ot 728.87 06/17/2014 DOMINICK CARUSO MD Ot V57.1 06/17/2014 DOMINICK CARUSO MD Ot 728.87 06/17/2014 DOMINICK CARUSO MD M Ot V57.1 06/25/2014 DOMINICK CARUSO MD Ot 332.0 06/25/2014 DOMINICK CARUSO MD Ot 780.79 07/11/2014 DOMINICK CARUSO MD Ot 780.79 07/16/2014 SHADY SHARMA, DOMINICK M Ot 728.87 07/16/2014 SHADY SHARMA, DOMINICK Alcazar Ot V57.1 07/16/2014 SHADY SHARMA, DOMINICK M Ot 332.0 07/16/2014 SHADY SHARMA, DOMINICK M Ot 780.79 07/24/2014 FERNY, BOBAN N Ot 153.9 07/24/2014 FERNY, BOBAN N Ot 196.9 07/24/2014 FERNY, BOBAN N Ot V10.3 07/26/2014 FERNY, BOBAN N Ot 153.9 07/26/2014 FERNY, BOBAN N Ot 196.9 07/26/2014 FERNY, BOBAN N Ot V10.3 07/26/2014 GILA SHARMA, KRIS Ot 726.0 07/26/2014 GILA SHARMA, KRIS Ot V57.1 07/29/2014 FERNY, BOBAN N Ot 153.9 07/29/2014 FERNY, BOBAN N Ot 196.9 07/29/2014 FERNY, BOBAN N Ot V10.3 08/02/2014 ZACK BRITTANY S PIECER UP Ot 332.0 08/02/2014 DIXON BRITTANY S PIECER UP Ot 585.3 08/02/2014 DIXON, BRITTANY S PIECER UP Ot 724.5 08/02/2014 DIXON, BRITTANY S PIECER UP Ot 780.79 08/02/2014 DIXON BRITTANY S PIECER UP Ot 791.9 08/02/2014 DIXON BRITTANY S PIECER UP Ot V10.05 08/02/2014 DIXON BRITTANY S PIECER UP Ot V10.3 08/02/2014 DIXON BRITTANY S PIECER UP Ot V45.71 08/02/2014 DIXON, BRITTANY S PIECER UP Ot V58.69 08/02/2014 ZACK BRITTANY S PIECER UP Ot V67.2 08/09/2014 NGOC SHARMA, MARIS T Ot 496 08/09/2014 NGOC SHARMA, MARIS T Ot 530.81 08/09/2014 NGOC SHARMA, MARIS T Ot 786.05 08/09/2014 NGOC SHARMA, MARIS T Ot 786.50 08/22/2014 HECTOR ENGLEP Ot 268.9 08/22/2014 HECTOR ENGLE PIECER UP Ot 332.0 08/22/2014 HECTOR ENGLE PIECER UP Ot 496 08/22/2014 HECTOR ENGLE PIECER UP Ot V58.69 08/22/2014 HECTOR ENGLE PIECER UP Ot V72.62 09/12/2014 HECTOR ENGLE PIECER UP Ot 268.9 09/12/2014 HECTOR ENGLE PIECER UP Ot 332.0 09/12/2014 HECTOR ENGLE PIECER UP Ot 496 09/12/2014 HECTOR ENGLE PIECER UP Ot V58.69 09/12/2014 HECTOR ENGLE PIECER UP Ot V72.62 10/24/2014 FERNY, BOBAN N Ot 153.9 10/24/2014 FERNY, BOBAN N Ot 196.9 10/24/2014 FERNY, BOBAN N Ot V10.3 10/30/2014 FERNY, BOBAN N Ot 153.9 10/30/2014 FERNY, BOBAN N Ot 196.9 10/30/2014 FERNY, BOBAN N Ot V10.3 11/06/2014 FERNY, BOBAN N Ot 153.9 11/06/2014 FERNY, BOBAN N Ot 196.9 11/06/2014 FERNY, BOBAN N Ot V10.3 12/11/2014 FERNY, BOBAN N Ot 153.9 12/11/2014 FERNY, BOBAN N Ot 196.9 12/11/2014 FERNY, BOBAN N Ot V10.3 02/28/2015 MIKY SHARMA, NICOLE Feng Ot M79.601 08/13/2015 Ot 272.4 09/05/2015 FERNY, BOBAN N Ot G20 PARKINSON'S DISEASE 09/05/2015 MILENA ISAACS N Ot Z08 ENCNTR FOR FOLLOW-UP EXAM AFTER TRTMT FO 09/05/2015 MILENA ISAACS N Ot Z79.899 OTHER JAIL (CURRENT) DRUG THERAPY 09/05/2015 FERNYMILENA MORALES N Ot Z85.038 PERSONAL HISTORY OF MALIGNANT NEOPLASM O 09/05/2015 FERNYMILENA MORALES N Ot Z85.3 PERSONAL HISTORY OF MALIGNANT NEOPLASM O 10/10/2015 MILENA ISAACS N Ot G20 PARKINSON'S DISEASE 10/10/2015 MILENA ISAACS Ot Z08 ENCNTR FOR FOLLOW-UP EXAM AFTER TRTMT FO 10/10/2015 MILENA ISAACS N Ot Z79.899 OTHER JAIL (CURRENT) DRUG THERAPY 10/10/2015 MILENA ISAACS N Ot Z85.038 PERSONAL HISTORY OF MALIGNANT NEOPLASM O 10/10/2015 FERNYMILENA MORALES N Ot Z85.3 PERSONAL HISTORY OF MALIGNANT NEOPLASM O 10/20/2015 MILENA ISAACS N Ot G20 PARKINSON'S DISEASE 10/20/2015 MILENA ISAACS N Ot Z08 ENCNTR FOR FOLLOW-UP EXAM AFTER TRTMT FO 10/20/2015 MILENA ISAACS Ot Z79.899 OTHER PROJECTION PRINTER (CURRENT) DRUG THERAPY 10/20/2015 MILENA ISAACS N Ot Z85.038 PERSONAL HISTORY OF MALIGNANT NEOPLASM O 10/20/2015 MILENA ISAACS N Ot Z85.3 PERSONAL HISTORY OF MALIGNANT NEOPLASM O 03/05/2016 KENDRA COYLE PARK KEEPER Ot G20 PARKINSON'S DISEASE 03/05/2016 KENDRA COYLE PARK KEEPER Ot M79.621 PAIN IN RIGHT UPPER ARM 03/17/2016 NICOLE BOLAÑOS MD Ot E78.00 PURE HYPERCHOLESTEROLEMIA, UNSPECIFIED 03/17/2016 NICOLE BOLAÑOS MD Ot G20 PARKINSON'S DISEASE 03/17/2016 NICOLE BOLAÑOS MD Ot I11.0 HYPERTENSIVE HEART DISEASE WITH HEART FA 03/17/2016 NICOLE BOLAÑOS MD Ot I44.7 LEFT BUNDLE-BRANCH BLOCK, UNSPECIFIED 03/17/2016 NICOLE BOLAÑOS MD Ot I50.9 HEART FAILURE, UNSPECIFIED 03/17/2016 NICOLE BOLAÑOS MD Ot K21.9 GASTRO-ESOPHAGEAL REFLUX DISEASE WITHOUT 03/17/2016 NICOLE BOLAÑOS MD Ot M06.9 RHEUMATOID ARTHRITIS, UNSPECIFIED 03/17/2016 NICOLE BOLAÑOS MD Ot M19.90 UNSPECIFIED OSTEOARTHRITIS, UNSPECIFIED 03/17/2016 NICOLE BOLAÑOS MD Ot M54.9 DORSALGIA, UNSPECIFIED 03/17/2016 NICOLE BOLAÑOS MD Ot N39.3 STRESS INCONTINENCE (FEMALE) (MALE) 03/17/2016 NICOLE BOLAÑOS MD Ot R07.9 CHEST PAIN, UNSPECIFIED 03/17/2016 NICOLE BOLAÑOS MD Ot Z66 DO NOT RESUSCITATE 03/17/2016 NICOLE BOLAÑOS MD Ot Z85.038 PERSONAL HISTORY OF MALIGNANT NEOPLASM O 03/17/2016 NICOLE BOLAÑOS MD Ot Z85.3 PERSONAL HISTORY OF MALIGNANT NEOPLASM O 03/17/2016 NICOLE BOLAÑOS MD Ot 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 03/17/2016 NICOLE BOLAÑOS MD Ot Z90.49 ACQUIRED ABSENCE OF OTHER SPECIFIED PART 03/17/2016 NICOLE BOLAÑOS MD Ot Z92.21 PERSONAL HISTORY OF ANTINEOPLASTIC CHEMO 03/17/2016 NICOLE BOLAÑOS MD Ot E78.00 PURE HYPERCHOLESTEROLEMIA, UNSPECIFIED 03/17/2016 NICOLE BOLAÑOS MD Ot G20 PARKINSON'S DISEASE 03/17/2016 NICOLE BOLAÑOS MD Ot I11.0 HYPERTENSIVE HEART DISEASE WITH HEART FA 03/17/2016 NICOLE BOLAÑOS MD Ot I44.7 LEFT BUNDLE-BRANCH BLOCK, UNSPECIFIED 03/17/2016 NICOLE BOLAÑOS MD Ot I50.9 HEART FAILURE, UNSPECIFIED 03/17/2016 NICOLE BOLAÑOS MD Ot K21.9 GASTRO-ESOPHAGEAL REFLUX DISEASE WITHOUT 03/17/2016 NICOLE BOLAÑOS MD Ot M06.9 RHEUMATOID ARTHRITIS, UNSPECIFIED 03/17/2016 NICOLE BOLAÑOS MD Ot M19.90 UNSPECIFIED OSTEOARTHRITIS, UNSPECIFIED 03/17/2016 NICOLE BOLAÑOS MD Ot M54.9 DORSALGIA, UNSPECIFIED 03/17/2016 NICOLE BOLAÑOS MD Ot N39.3 STRESS INCONTINENCE (FEMALE) (MALE) 03/17/2016 NICOLE BOLAÑOS MD Ot R07.9 CHEST PAIN, UNSPECIFIED 03/17/2016 NICOLE BOLAÑOS MD Ot Z66 DO NOT RESUSCITATE 03/17/2016 NICOEL BOLAÑOS MD Ot Z85.038 PERSONAL HISTORY OF MALIGNANT NEOPLASM O 03/17/2016 NICOLE BOLAÑOS MD Ot Z85.3 PERSONAL HISTORY OF MALIGNANT NEOPLASM O 03/17/2016 NICOLE BOLAÑOS MD Ot 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 03/17/2016 NICOLE BOLAÑOS MD Ot Z90.49 ACQUIRED ABSENCE OF OTHER SPECIFIED PART 03/17/2016 NICOLE BOLAÑOS MD Ot Z92.21 PERSONAL HISTORY OF ANTINEOPLASTIC CHEMO 03/18/2016 NICOLE BOLAÑOS MD Ot E78.00 PURE HYPERCHOLESTEROLEMIA, UNSPECIFIED 03/18/2016 NICOLE BOLAÑOS MD Ot G20 PARKINSON'S DISEASE 03/18/2016 NICOLE BOLAÑOS MD Ot I11.0 HYPERTENSIVE HEART DISEASE WITH HEART FA 03/18/2016 NICOLE BOLAÑOS MD Ot I44.7 LEFT BUNDLE-BRANCH BLOCK, UNSPECIFIED 03/18/2016 NICOLE BOLAÑOS MD Ot I50.9 HEART FAILURE, UNSPECIFIED 03/18/2016 NICOLE BOLAÑOS MD Ot K21.9 GASTRO-ESOPHAGEAL REFLUX DISEASE WITHOUT 03/18/2016 NICOLE BOLAÑOS MD Ot M06.9 RHEUMATOID ARTHRITIS, UNSPECIFIED 03/18/2016 NICOLE BOLAÑOS MD Ot M19.90 UNSPECIFIED OSTEOARTHRITIS, UNSPECIFIED 03/18/2016 NICOLE BOLAÑOS MD Ot M54.9 DORSALGIA, UNSPECIFIED 03/18/2016 NICOLE BOLAÑOS MD Ot N39.3 STRESS INCONTINENCE (FEMALE) (MALE) 03/18/2016 NICOLE BOLAÑOS MD Ot R07.9 CHEST PAIN, UNSPECIFIED 03/18/2016 NICOLE BOLAÑOS MD Ot Z66 DO NOT RESUSCITATE 03/18/2016 NICOLE BOLAÑOS MD Ot Z85.038 PERSONAL HISTORY OF MALIGNANT NEOPLASM O 03/18/2016 NICOLE BOLAÑOS MD Ot Z85.3 PERSONAL HISTORY OF MALIGNANT NEOPLASM O 03/18/2016 NICOLE BOLAÑOS MD Ot 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 03/18/2016 NICOLE BOLAÑOS MD Ot Z90.49 ACQUIRED ABSENCE OF OTHER SPECIFIED PART 03/18/2016 NICOLE BOLAÑOS MD Ot Z92.21 PERSONAL HISTORY OF ANTINEOPLASTIC CHEMO 03/19/2016 NICOLE BOLAÑOS MD Ot E78.00 PURE HYPERCHOLESTEROLEMIA, UNSPECIFIED 03/19/2016 NICOLE BOLAÑOS MD Ot G20 PARKINSON'S DISEASE 03/19/2016 NICOLE BOLAÑOS MD Ot I11.0 HYPERTENSIVE HEART DISEASE WITH HEART FA 03/19/2016 NICOLE BOLAÑOS MD Ot I44.7 LEFT BUNDLE-BRANCH BLOCK, UNSPECIFIED 03/19/2016 NICOLE BOLAÑOS MD, Ot I50.9 HEART FAILURE, UNSPECIFIED 03/19/2016 NICOLE BOLAÑOS MD, Ot K21.9 GASTRO-ESOPHAGEAL REFLUX DISEASE WITHOUT 03/19/2016 NICOLE BOLAÑOS MD Ot M06.9 RHEUMATOID ARTHRITIS, UNSPECIFIED 03/19/2016 NICOLE BOLAÑOS MD Ot M19.90 UNSPECIFIED OSTEOARTHRITIS, UNSPECIFIED 03/19/2016 NICOLE BOLAÑOS MD Ot M54.9 DORSALGIA, UNSPECIFIED 03/19/2016 NICOLE BOLAÑOS MD Ot N39.3 STRESS INCONTINENCE (FEMALE) (MALE) 03/19/2016 NICOLE BOLAÑOS MD Ot R07.9 CHEST PAIN, UNSPECIFIED 03/19/2016 NICOLE BOLAÑOS MD, Ot Z66 DO NOT RESUSCITATE 03/19/2016 NICOLE BOLAÑOS MD Ot Z85.038 PERSONAL HISTORY OF MALIGNANT NEOPLASM O 03/19/2016 NICOLE BOLAÑOS MD Ot Z85.3 PERSONAL HISTORY OF MALIGNANT NEOPLASM O 03/19/2016 NICOLE BOLAÑOS MD Ot 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 03/19/2016 NICOLE BOLAÑOS MD Ot Z90.49 ACQUIRED ABSENCE OF OTHER SPECIFIED PART 03/19/2016 NICOLE BOLAÑOS MD Ot Z92.21 PERSONAL HISTORY OF ANTINEOPLASTIC CHEMO 03/19/2016 NICOLE BOLAÑOS MD Ot E78.00 PURE HYPERCHOLESTEROLEMIA, UNSPECIFIED 03/19/2016 NICOLE BOLAÑOS MD Ot G20 PARKINSON'S DISEASE 03/19/2016 NICOLE BOLAÑOS MD Ot I11.0 HYPERTENSIVE HEART DISEASE WITH HEART FA 03/19/2016 NICOLE BOLAÑOS MD Ot I27.2 OTHER SECONDARY PULMONARY HYPERTENSION 03/19/2016 NICOLE BOLAÑOS MD Ot I42.9 CARDIOMYOPATHY, UNSPECIFIED 03/19/2016 NICOLE BOLAÑOS MD Ot I44.7 LEFT BUNDLE-BRANCH BLOCK, UNSPECIFIED 03/19/2016 NICOLE BOLAÑOS MD Ot I50.21 ACUTE SYSTOLIC (CONGESTIVE) HEART FAILUR 03/19/2016 NICOLE BOLAÑOS MD, Ot K21.9 GASTRO-ESOPHAGEAL REFLUX DISEASE WITHOUT 03/19/2016 NICOLE BOLAÑOS MD, Ot M06.9 RHEUMATOID ARTHRITIS, UNSPECIFIED 03/19/2016 NICOLE BOLAÑOS MD Ot M19.90 UNSPECIFIED OSTEOARTHRITIS, UNSPECIFIED 03/19/2016 NICOLE BOLAÑOS MD Ot M54.9 DORSALGIA, UNSPECIFIED 03/19/2016 NICOLE BOLAÑOS MD, Ot N39.3 STRESS INCONTINENCE (FEMALE) (MALE) 03/19/2016 NICOLE BOLAÑOS MD Ot R07.9 CHEST PAIN, UNSPECIFIED 03/19/2016 NICOLE BOLAÑOS MD Ot Z66 DO NOT RESUSCITATE 03/19/2016 NICOLE BOLAÑOS MD Ot Z85.038 PERSONAL HISTORY OF MALIGNANT NEOPLASM O 03/19/2016 NICOLE BOLAÑOS MD Ot Z85.3 PERSONAL HISTORY OF MALIGNANT NEOPLASM O 03/19/2016 NICOLE BOLAÑOS MD Ot 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 03/19/2016 NICOLE BOLAÑOS MD Ot Z90.49 ACQUIRED ABSENCE OF OTHER SPECIFIED PART 03/19/2016 NICOLE BOLAÑOS MD Ot Z92.21 PERSONAL HISTORY OF ANTINEOPLASTIC CHEMO 03/23/2016 KENDRA COYLE APRN Ot G20 PARKINSON'S DISEASE 03/23/2016 KENDRA COYLE APRN Ot M79.621 PAIN IN RIGHT UPPER ARM 04/20/2016 SCOTTY YBARRA DO Ot G20 PARKINSON'S DISEASE 04/20/2016 SCOTTY YBARRA DO Ot R06.02 SHORTNESS OF BREATH 05/11/2016 SCOTTY YBARRA DO Ot G20 PARKINSON'S DISEASE 05/11/2016 SCOTTY YBARRA DO Ot R06.02 SHORTNESS OF BREATH 07/28/2016 DORENE SHARMA, Ottoniel LARKIN Ot I42.0 DILATED CARDIOMYOPATHY 08/17/2016 MILENA ISAACS Ot G20 PARKINSON'S DISEASE 08/17/2016 MILENA ISAACS Ot Z08 ENCNTR FOR FOLLOW-UP EXAM AFTER TRTMT FO 08/17/2016 MILENA ISAACS Ot Z79.899 OTHER JAIL (CURRENT) DRUG THERAPY 08/17/2016 MILENA ISAACS Ot Z85.038 PERSONAL HISTORY OF MALIGNANT NEOPLASM O 08/17/2016 MILENA ISAACS Ot Z85.3 PERSONAL HISTORY OF MALIGNANT NEOPLASM O 09/03/2016 DORENE SHARMA, Ottoniel LARKIN Ot I73.9 PERIPHERAL VASCULAR DISEASE, UNSPECIFIED 09/03/2016 DORENE SHARMA, M CHAYA De La Cruz I73.9 PERIPHERAL VASCULAR DISEASE, UNSPECIFIED Procedures Code Description Performed By Performed On [id number] MEASURE OF CARDIAC SAMPL PRESSURE, L H 03/18/2016 [id number] FLUOROSCOPY OF MULT COR ART USING L OSM 03/18/2016 [id number] FLUOROSCOPY OF LEFT HEART USING LOW OSMO 03/18/2016 Results Test Result Range Complete blood count (CBC) with automated white blood cell (WBC) differential - 03/15/16 16:36 Blood leukocytes automated count (number/volume) 6.4 10*3/ uL 4.3-11.0 Blood erythrocytes automated count (number/volume) 4.37 10*6 /uL 4.35-5.85 Venous blood hemoglobin measurement (mass/volume) 13.8 g/dL 11.5-16.0 Blood hematocrit (volume fraction) 42 % 35-52 Automated erythrocyte mean corpuscular volume 97 [foz_us] 80-99 Automated erythrocyte mean corpuscular hemoglobin (mass per erythrocyte) 32 pg 25-34 Automated erythrocyte mean corpuscular hemoglobin concentration measurement ( mass/volume) 33 g/dL 32-36 Automated erythrocyte distribution width ratio 12.9 % 10.0-14.5 Automated blood platelet count (count/volume) 121 10*3/uL 130-400 Automated blood platelet mean volume measurement 9.8 [foz_us ] 7.4-10.4 Automated blood neutrophils/100 leukocytes 75 % 42-75 Automated blood lymphocytes/100 leukocytes 13 % 12-44 Blood monocytes/100 leukocytes 11 % 0-12 Automated blood eosinophils/100 leukocytes 1 % 0-10 Automated blood basophils/100 leukocytes 0 % 0-10 Blood neutrophils automated count (number/volume) 4.8 10*3 1.8-7.8 Blood lymphocytes automated count (number/volume) 0.8 10*3 1.0-4.0 Blood monocytes automated count (number/volume) 0.7 10*3 0.0-1.0 Automated eosinophil count 0.1 10*3/uL 0.0-0.3 Automated blood basophil count (count/volume) 0.0 10*3/uL 0.0-0.1 PT panel in platelet poor plasma by coagulation assay - 03/15/16 16:36 Prothrombin time (PT) in platelet poor plasma by coagulation assay 12.7 s 12.2-14.7 INR in platelet poor plasma or blood by coagulation assay 1.0 0.8-1.4 Activated partial thromboplastin time (aPTT) in platelet poor plasma bycoagulation assay - 03/15/16 16:36 Activated partial thromboplastin time (aPTT) in platelet poor plasma bycoagulation assay 28 s 24-35 Comprehensive metabolic panel - 03/15/16 16:36 Serum or plasma sodium measurement (moles/volume) 140 mmol/ L 135-145 Serum or plasma potassium measurement (moles/volume) 3.9 mmol/L 3.6-5.0 Serum or plasma chloride measurement (moles/volume) 104 mmol /L 98-107 Carbon dioxide 28 mmol/L 21-32 Serum or plasma anion gap determination (moles/volume) 8 mmol/L 5-14 Serum or plasma urea nitrogen measurement (mass/volume) 17 mg/dL 7-18 Serum or plasma creatinine measurement (mass/volume) 0.82 mg /dL 0.60-1.30 Serum or plasma urea nitrogen/creatinine mass ratio 21 NRG Serum or plasma creatinine measurement with calculation of estimated glomerular filtration rate > NRG Serum or plasma glucose measurement (mass/volume) 116 mg/dL 70-105 Serum or plasma calcium measurement (mass/volume) 9.2 mg/dL 8.5-10.1 Serum or plasma total bilirubin measurement (mass/volume) 0.6 mg/dL 0.1-1.0 Serum or plasma alkaline phosphatase measurement (enzymatic activity/volume) 69 U/L 40-136 Serum or plasma aspartate aminotransferase measurement (enzymatic activity/ volume) 25 U/L 5-34 Serum or plasma alanine aminotransferase measurement (enzymatic activity/volume ) 7 U/L 0-55 Serum or plasma protein measurement (mass/volume) 6.5 g/dL 6.4-8.2 Serum or plasma albumin measurement (mass/volume) 3.9 g/dL 3.2-4.5 Magnesium - 03/15/16 16:36 Magnesium 2.1 mg/dL 1.8-2.4 Serum or plasma creatine kinase measurement (enzymatic activity/volume) - 03/15 16:36 Serum or plasma creatine kinase measurement (enzymatic activity/volume) 62 U/L 29-168 Serum or plasma lithium measurement (moles/volume) - 03/15/16 16:36 BNP level 608.0 pg/mL <100.0 Serum or plasma creatine kinase MB measurement (enzymatic activity/volume) - 16:36 Serum or plasma creatine kinase MB measurement (enzymatic activity/volume) 3.0 ng/mL <6.6 Serum or plasma troponin i.cardiac measurement (mass/volume) - 03/15/16 16:36 Serum or plasma troponin i.cardiac measurement (mass/volume) < ng/mL <0.30 Arterial blood gas measurement - 03/15/16 19:02 Blood pCO2 40 mm[Hg] 35-45 Blood pO2 59 mm[Hg] 79-93 Arterial blood bicarbonate measurement (moles/volume) 26 mmol/L 23-27 Arterial blood base excess by calculation 0.9 mmol/L -2.5-2.5 Arterial blood oxygen saturation measurement 94 % 94-100 * Inhaled oxygen flow rate 3L NRG Arterial blood pH measurement with patient temperature correction 7.42 7.37-7.43 Arterial blood carbon dioxide, total measurement (moles/volume) 26.7 mmol/L 21.0-31.0 Body site LEFT RADIAL NRG Assessment of wrist artery patency prior to arterial puncture POSITIVE NRG Setting of ventilation mode NO NRG Measurement of body temperature 98.4 NRG Serum or plasma troponin i.cardiac measurement (mass/volume) - 03/15/16 22:45 Serum or plasma troponin i.cardiac measurement (mass/volume) < ng/mL <0.30 Myoglobin, serum - 03/15/16 22:45 Myoglobin, serum 174.2 ng/mL 10.0-92.0 Comprehensive metabolic panel - 03/16/16 03:45 Serum or plasma sodium measurement (moles/volume) 143 mmol/ L 135-145 Serum or plasma potassium measurement (moles/volume) 3.4 mmol/L 3.6-5.0 Serum or plasma chloride measurement (moles/volume) 104 mmol /L 98-107 Carbon dioxide 26 mmol/L 21-32 Serum or plasma anion gap determination (moles/volume) 13 mmol/L 5-14 Serum or plasma urea nitrogen measurement (mass/volume) 16 mg/dL 7-18 Serum or plasma creatinine measurement (mass/volume) 0.76 mg /dL 0.60-1.30 Serum or plasma urea nitrogen/creatinine mass ratio 21 NRG Serum or plasma creatinine measurement with calculation of estimated glomerular filtration rate > NRG Serum or plasma glucose measurement (mass/volume) 94 mg/dL 70-105 Serum or plasma calcium measurement (mass/volume) 8.5 mg/dL 8.5-10.1 Serum or plasma total bilirubin measurement (mass/volume) 0.8 mg/dL 0.1-1.0 Serum or plasma alkaline phosphatase measurement (enzymatic activity/volume) 62 U/L 40-136 Serum or plasma aspartate aminotransferase measurement (enzymatic activity/ volume) 24 U/L 5-34 Serum or plasma alanine aminotransferase measurement (enzymatic activity/volume ) 7 U/L 0-55 Serum or plasma protein measurement (mass/volume) 5.9 g/dL 6.4-8.2 Serum or plasma albumin measurement (mass/volume) 3.6 g/dL 3.2-4.5 Lipid 1996 panel - 03/16/16 03:45 Serum or plasma triglyceride measurement (mass/volume) 68 mg /dL <150 Serum or plasma cholesterol measurement (mass/volume) 182 mg /dL < 200 Serum or plasma cholesterol in HDL measurement (mass/volume) 78 mg/dL 40-60 Cholesterol in LDL [mass/volume] in serum or plasma by direct assay 79 mg/dL 1-129 Serum or plasma cholesterol in VLDL measurement (mass/volume) 14 mg/dL 5-40 Complete blood count (CBC) with automated white blood cell (WBC) differential - 03/16/16 03:45 Blood leukocytes automated count (number/volume) 4.7 10*3/ uL 4.3-11.0 Blood erythrocytes automated count (number/volume) 4.25 10*6 /uL 4.35-5.85 Venous blood hemoglobin measurement (mass/volume) 13.4 g/dL 11.5-16.0 Blood hematocrit (volume fraction) 41 % 35-52 Automated erythrocyte mean corpuscular volume 97 [foz_us] 80-99 Automated erythrocyte mean corpuscular hemoglobin (mass per erythrocyte) 32 pg 25-34 Automated erythrocyte mean corpuscular hemoglobin concentration measurement ( mass/volume) 33 g/dL 32-36 Automated erythrocyte distribution width ratio 12.7 % 10.0-14.5 Automated blood platelet count (count/volume) 123 10*3/uL 130-400 Automated blood platelet mean volume measurement 10.4 [foz_ us] 7.4-10.4 Automated blood neutrophils/100 leukocytes 69 % 42-75 Automated blood lymphocytes/100 leukocytes 15 % 12-44 Blood monocytes/100 leukocytes 13 % 0-12 Automated blood eosinophils/100 leukocytes 3 % 0-10 Automated blood basophils/100 leukocytes 0 % 0-10 Blood neutrophils automated count (number/volume) 3.2 10*3 1.8-7.8 Blood lymphocytes automated count (number/volume) 0.7 10*3 1.0-4.0 Blood monocytes automated count (number/volume) 0.6 10*3 0.0-1.0 Automated eosinophil count 0.1 10*3/uL 0.0-0.3 Automated blood basophil count (count/volume) 0.0 10*3/uL 0.0-0.1 Serum or plasma lithium measurement (moles/volume) - 03/16/16 03:45 BNP level 642.2 pg/mL <100.0 Automated blood complete blood count (hemogram) panel - 03/17/16 04:00 Blood leukocytes automated count (number/volume) 4.4 10*3/ uL 4.3-11.0 Blood erythrocytes automated count (number/volume) 3.95 10*6 /uL 4.35-5.85 Venous blood hemoglobin measurement (mass/volume) 12.4 g/dL 11.5-16.0 Blood hematocrit (volume fraction) 38 % 35-52 Automated erythrocyte mean corpuscular volume 96 [foz_us] 80-99 Automated erythrocyte mean corpuscular hemoglobin (mass per erythrocyte) 31 pg 25-34 Automated erythrocyte mean corpuscular hemoglobin concentration measurement ( mass/volume) 33 g/dL 32-36 Automated erythrocyte distribution width ratio 12.6 % 10.0-14.5 Automated blood platelet count (count/volume) 117 10*3/uL 130-400 Automated blood platelet mean volume measurement 9.8 [foz_us ] 7.4-10.4 Whole blood basic metabolic panel - 03/17/16 04:00 Serum or plasma sodium measurement (moles/volume) 141 mmol/ L 135-145 Serum or plasma potassium measurement (moles/volume) 3.5 mmol/L 3.6-5.0 Serum or plasma chloride measurement (moles/volume) 105 mmol /L 98-107 Carbon dioxide 27 mmol/L 21-32 Serum or plasma anion gap determination (moles/volume) 9 mmol/L 5-14 Serum or plasma urea nitrogen measurement (mass/volume) 24 mg/dL 7-18 Serum or plasma creatinine measurement (mass/volume) 0.72 mg /dL 0.60-1.30 Serum or plasma urea nitrogen/creatinine mass ratio 33 NRG Serum or plasma creatinine measurement with calculation of estimated glomerular filtration rate > NRG Serum or plasma glucose measurement (mass/volume) 126 mg/dL 70-105 Serum or plasma calcium measurement (mass/volume) 9.0 mg/dL 8.5-10.1 Serum or plasma lithium measurement (moles/volume) - 03/17/16 04:00 BNP level 485.3 pg/mL <100.0 Automated blood complete blood count (hemogram) panel - 03/18/16 05:34 Blood leukocytes automated count (number/volume) 4.3 10*3/ uL 4.3-11.0 Blood erythrocytes automated count (number/volume) 4.14 10*6 /uL 4.35-5.85 Venous blood hemoglobin measurement (mass/volume) 12.8 g/dL 11.5-16.0 Blood hematocrit (volume fraction) 40 % 35-52 Automated erythrocyte mean corpuscular volume 96 [foz_us] 80-99 Automated erythrocyte mean corpuscular hemoglobin (mass per erythrocyte) 31 pg 25-34 Automated erythrocyte mean corpuscular hemoglobin concentration measurement ( mass/volume) 32 g/dL 32-36 Automated erythrocyte distribution width ratio 12.6 % 10.0-14.5 Automated blood platelet count (count/volume) 128 10*3/uL 130-400 Automated blood platelet mean volume measurement 9.6 [foz_us ] 7.4-10.4 Whole blood basic metabolic panel - 03/18/16 05:34 Serum or plasma sodium measurement (moles/volume) 141 mmol/ L 135-145 Serum or plasma potassium measurement (moles/volume) 3.5 mmol/L 3.6-5.0 Serum or plasma chloride measurement (moles/volume) 106 mmol /L 98-107 Carbon dioxide 25 mmol/L 21-32 Serum or plasma anion gap determination (moles/volume) 10 mmol/L 5-14 Serum or plasma urea nitrogen measurement (mass/volume) 16 mg/dL 7-18 Serum or plasma creatinine measurement (mass/volume) 0.65 mg /dL 0.60-1.30 Serum or plasma urea nitrogen/creatinine mass ratio 25 NRG Serum or plasma creatinine measurement with calculation of estimated glomerular filtration rate > NRG Serum or plasma glucose measurement (mass/volume) 97 mg/dL 70-105 Serum or plasma calcium measurement (mass/volume) 8.5 mg/dL 8.5-10.1 Automated blood complete blood count (hemogram) panel - 03/19/16 03:39 Blood leukocytes automated count (number/volume) 3.7 10*3/ uL 4.3-11.0 Blood erythrocytes automated count (number/volume) 3.90 10*6 /uL 4.35-5.85 Venous blood hemoglobin measurement (mass/volume) 12.2 g/dL 11.5-16.0 Blood hematocrit (volume fraction) 38 % 35-52 Automated erythrocyte mean corpuscular volume 97 [foz_us] 80-99 Automated erythrocyte mean corpuscular hemoglobin (mass per erythrocyte) 31 pg 25-34 Automated erythrocyte mean corpuscular hemoglobin concentration measurement ( mass/volume) 32 g/dL 32-36 Automated erythrocyte distribution width ratio 12.6 % 10.0-14.5 Automated blood platelet count (count/volume) 128 10*3/uL 130-400 Automated blood platelet mean volume measurement 10.0 [foz_ us] 7.4-10.4 Whole blood basic metabolic panel - 03/19/16 03:39 Serum or plasma sodium measurement (moles/volume) 141 mmol/ L 135-145 Serum or plasma potassium measurement (moles/volume) 3.7 mmol/L 3.6-5.0 Serum or plasma chloride measurement (moles/volume) 108 mmol /L 98-107 Carbon dioxide 24 mmol/L 21-32 Serum or plasma anion gap determination (moles/volume) 9 mmol/L 5-14 Serum or plasma urea nitrogen measurement (mass/volume) 15 mg/dL 7-18 Serum or plasma creatinine measurement (mass/volume) 0.68 mg /dL 0.60-1.30 Serum or plasma urea nitrogen/creatinine mass ratio 22 NRG Serum or plasma creatinine measurement with calculation of estimated glomerular filtration rate > NRG Serum or plasma glucose measurement (mass/volume) 89 mg/dL 70-105 Serum or plasma calcium measurement (mass/volume) 8.5 mg/dL 8.5-10.1 25-hydroxyvitamin D measurement - 08/30/16 17:04 25-hydroxy vitamin D measurement 38 % 30- 100 Encounters ACCT No. Visit Date/Time Discharge Status Pt. Type Provider Facility Loc./Unit Complaint [id number] 03/12/2016 08:30:00 2016 10:54:00 DIS Outpatient KENDRA COYLE APRN [facility] REHAB R ARM PAIN [id number] 03/15/2016 17:40:00 2016 12:00:00 DIS Inpatient NICOLE BOLAÑOS MD [facility] CSD CHF,NEW LBBB,HTN,CHEST PAIN [id number] 07/28/2015 13:19:00 2015 00:01:00 DIS Outpatient MILENA ISAACS [facility] ONC [id number] 02/28/2015 09:15:00 2014 09:52:00 DIS Outpatient NICOLE BOLAÑOS MD [facility] REHAB [id number] 10/29/2014 12:03:00 2014 00:01:00 DIS Outpatient MILENA ISAACS [facility] ONC [id number] 08/01/2014 13:41:00 2014 00:01:00 DIS Outpatient MILENA ISAACS [facility] ONC [id number] 08/20/2014 12:33:00 2014 23:59:59 CLS Outpatient HECTOR ENGLE [facility] LAB [id number] 08/09/2014 18:11:00 2014 22:55:00 DIS Emergency NGOC SHARMA, MARIS Hammonds [facility] ER [id number] 07/22/2014 11:25:00 2014 15:51:00 DIS Outpatient KRIS URIOSTEGUI MD [facility] REHAB [id number] 06/25/2014 14:50:00 2014 11:05:00 DIS Outpatient DOMINICK CARUSO MD [facility] REHAB [id number] 06/17/2014 15:35:00 2014 23:59:59 CLS Outpatient DOMINICK CARUSO MD [facility] LAB [id number] 06/11/2014 13:44:00 2014 23:59:59 CLS Outpatient ZACK BRITTANY RICHARDSON [facility] [id number] 06/03/2014 14:44:00 2014 23:59:59 CLS Outpatient DOMINICK CARUSO MD [facility] LAB [id number] 07/30/2013 13:14:00 2013 00:01:00 DIS Outpatient [id number] 10/25/2013 13:30:00 2013 23:59:59 CLS Outpatient [id number] 09/12/2013 12:10:00 2013 23:59:59 CLS Outpatient DOMINICK CARUSO MD [facility] [id number] 09/06/2013 13:30:00 2013 23:59:59 CLS Outpatient [id number] 08/28/2013 10:00:00 2013 23:59:59 CLS Outpatient [id number] 08/07/2013 13:31:00 2013 13:30:00 DIS Inpatient ELOISE STARKS MD [facility] [id number] 08/05/2013 12:31:00 2013 13:30:00 DIS Inpatient [id number] 07/04/2013 09:45:00 2013 12:10:00 DIS Outpatient [id number] 05/23/2013 11:08:00 2013 23:59:59 CLS Outpatient [id number] 02/15/2013 14:00:00 2012 23:59:59 CLS Outpatient [id number] 11/14/2012 14:36:00 2012 23:59:59 CLS Outpatient [id number] 08/03/2012 12:56:00 2012 00:01:00 DIS Outpatient [id number] 09/09/2016 14:00:00 PEN Preadmit DORENE SHARMA, Ottoniel LARKIN [facility] CARD I73.9 CLAUDICATION [id number] 08/30/2016 11:01:00 ACT Outpatient MILENA ISAACS [facility] ONC [id number] 07/05/2016 12:03:00 ACT Outpatient Ottoniel CATHERINE MD [facility] CARD I42.0 [id number] 04/19/2016 11:52:00 ACT Outpatient SCOTTY YBARRA DO [facility] RAD SOB [id number] 12/21/2006 08:48:00 Document Registration
[2016-09-09] MEDS ORDERED: NS IV 1000 ML 1,000 ML IV ONE (14:30)
[2016-09-09 14:48] LABS: BASOPHILS % (AUTO) 0 % (0-10); EOSINOPHILS # (AUTO) 0.1 10^3/uL (0.0-0.3); EOSINOPHILS % (AUTO) 1 % (0-10); LYMPHOCYTES # (AUTO) 0.6 X 10^3 (1.0-4.0); LYMPHOCYTES % (AUTO) 9 % (12-44); MEAN CORPUSCULAR HEMOGLOBIN 31 PG (25-34); MEAN CORPUSCULAR HGB CONC 31 G/DL (32-36); MEAN CORPUSCULAR VOLUME 99 FL (80-99); MEAN PLATELET VOLUME 9.8 FL (7.4-10.4); MONOCYTES # (AUTO) 0.8 X 10^3 (0.0-1.0); MONOCYTES % (AUTO) 11 % (0-12); NEUTROPHILS # (AUTO) 5.5 X 10^3 (1.8-7.8); NEUTROPHILS % (AUTO) 79 % (42-75); PLATELET COUNT 134 10^3/uL (130-400); RED BLOOD COUNT 3.58 10^6/uL (4.35-5.85); RED CELL DISTRIBUTION WIDTH 12.6 % (10.0-14.5); WHITE BLOOD COUNT 6.9 10^3/uL (4.3-11.0)
[2016-09-09 15:00] LABS: INR 0.9 (0.8-1.4); PROTHROMBIN TIME PATIENT 12.3 SEC (12.2-14.7)
[2016-09-09 15:07] LABS: ALANINE AMINOTRANSFERASE < 6 U/L (0-55); ALBUMIN 3.5 GM/DL (3.2-4.5); ANION GAP 9 MMOL/L (5-14); ASPARTATE AMINO TRANSFERASE 20 U/L (5-34); BILIRUBIN,TOTAL 0.5 MG/DL (0.1-1.0); BLOOD UREA NITROGEN 26 MG/DL (7-18); BUN/CREATININE RATIO 28; CALCIUM 9.4 MG/DL (8.5-10.1); CARBON DIOXIDE 25 MMOL/L (21-32); CHLORIDE 104 MMOL/L (98-107); CREATININE SERUM 0.94 MG/DL (0.60-1.30); GFR ESTIMATED 57; GLUCOSE 163 MG/DL (70-105); POTASSIUM 4.4 MMOL/L (3.6-5.0); SODIUM 138 MMOL/L (135-145)
[2016-09-09 15:15] LABS: MYOGLOBIN SERUM 68.1 NG/ML (10.0-92.0)
--- NOTE | 2016-09-09 15:20 | Diagnostic Imaging Report ---
EXAMINATION: Postoperative radiograph of the chest. INDICATION: Patient is unresponsive. FINDINGS: The lungs are hyperinflated with chronic appearing interstitial thickening. The heart size is moderately enlarged. No effusion or pneumothorax. The mediastinum and freddie appear unremarkable. IMPRESSION: COPD. Cardiomegaly. Dictated by: Dictated on workstation # [id number]
--- NOTE | 2016-09-09 15:52 | Diagnostic Imaging Report ---
PROCEDURE: CT head without contrast. TECHNIQUE: Multiple contiguous axial images were obtained through the brain without the use of intravenous contrast. INDICATION: Confusion. FINDINGS: There is no intracranial hemorrhage, edema or mass effect. The brain parenchyma demonstrates periventricular white matter hypodensities, compatible with chronic microvascular ischemic changes, generally slightly increased compared to 2014 exam. There is no hydrocephalus. No extra-axial fluid collection is seen. The calvarium, orbits and visualized paranasal sinuses appear unremarkable. IMPRESSION: No intracranial hemorrhage. Dictated by: Dictated on workstation # [id number]
[2016-09-09 15:57] LABS: BILIRUBIN,URINE NEGATIVE (NEGATIVE); KETONES,URINE NEGATIVE (NEGATIVE); LEUKOCYTE ESTERASE ,URINE 3+ (NEGATIVE); NITRITE,URINE NEGATIVE (NEGATIVE); PH,URINE 6 (5-9); PROTEIN,URINE 2+ (NEGATIVE); UROBILINOGEN,URINE NORMAL (NORMAL)
[2016-09-09 16:06] LABS: WBC,URINE 50-100 /HPF
[2016-09-09] MEDS ORDERED: cefTRIAXone INJECTION 1,000 MG in NS (IVPB) 50 ML IV ONE (16:15)
[2016-09-09] MEDS ORDERED: CEFD300C3 PO (16:23)
--- NOTE | 2016-09-09 16:23 | ED General ---
General Chief Complaint: Altered Mental Status Stated Complaint: CONFUSION/THOUGH PROCESS IN LAST 20 MIN Nursing Triage Note: Pt to ED 7 via wheelchair. Family reports pt has not been responding to conversation appropriately since lunchtime today. Per , pt was normal throughout the morning today and became increasingly sleepy during lunch around 1300 and then became confused talking about situations that had not occurred for several years. Pt reports she takes 0.25mg xanax prn for SOA and states she typically takes 1 pill in the morning and 1 pill in the evening but took an extra pill around 1245 today because she was feeling SOA. Nursing Sepsis Screen: No Definite Risk Allergies and Home Medications Allergies Coded Allergies: Penicillins (Verified Allergy, Mild, 08/05/13) Home Medications Aspirin 81 Mg Tablet.dr, 81 MG PO MoWeFr, (Reported) Calcium Carbonate/Vitamin D3 1 Each Tablet, 1 TAB PO DAILY, (Reported) Carbidopa/Levodopa 1 Each Tablet, 2 TAB PO BID, (Reported) Carbidopa/Levodopa 1 Each Tablet, 3 TAB PO 1200, (Reported) Cholecalciferol (Vitamin D3) 400 Unit Tablet, 400 UNIT PO DAILY, (Reported) Lisinopril 5 Mg Tablet, 5 MG PO DAILY, #90 Ref 3 Prescribed by: NICOLE BOLAÑOS on 03/19/16821 Metoprolol Tartrate 25 Mg Tablet, 12.5 MG PO BID, #90 Ref 3 Prescribed by: NICOLE BOLAÑOS on 03/19/16821 Multivitamin 1 Each Tablet, 1 TAB PO DAILY, (Reported) Nitroglycerin 0.4 Mg Tab.subl, 0.4 MG SL UD PRN for CHEST PAIN, (Reported) [place]-3 Fatty Acids 1,000 Mg Capsule, 1,000 MG PO DAILY, (Reported) Omeprazole 20 Mg Capsule.dr, 20 MG PO DAILY PRN for ACID REFLUX, (Reported) Pramipexole Di-HCl 0.25 Mg Tablet, 0.5 TAB PO BID PRN for RESTLESS LEGS, ( Reported) Rasagiline Mesylate 1 Mg Tablet, 1 MG PO DAILY, (Reported) Sertraline HCl 50 Mg Tablet, 50 MG PO HS, (Reported) Vitamin B Complex & Vit C No.4 150 Mg Tablet, 150 MG PO DAILY, (Reported) Past Lqbnrgs-Itczrw-Gwtlxo Hx Patient Social History Alcohol Use: Denies Use Recreational Drug Use: No Smoking Status: Never a Smoker 2nd Hand Smoke Exposure: No Recent Foreign Travel: No Contact w/Someone Who Travel: No Recent Infectious Disease Expo: No Recent Hopitalizations: No Immunizations Up To Date Tetanus Booster (TDap): Unknown PED Vaccines UTD: No Seasonal Allergies Seasonal Allergies: No Surgeries HX Surgeries: Yes Surgeries: Abdominal, Appendectomy, Breast, Gallbladder, Hysterectomy, Oophorectomy Respiratory Hx Respiratory Disorders: No Cardiovascular Hx Cardiac Disorders: Yes Cardiac Disorders: High Cholesterol, Hypertension Neurological Hx Neurological Disorders: Yes Neurological Disorders: Parkinson's Disease Reproductive System Hx Reproductive Disorders: No Sexually Transmitted Disease: No HIV/AIDS: No Female Reproductive Disorders: Denies Genitourinary Hx Genitourinary Disorders: No (Stress incontinence) Gastrointestinal Hx Gastrointestinal Disorders: Yes Gastrointestinal Disorders: Gastroesophageal Reflux Musculoskeletal Hx Musculoskeletal Disorders: Yes Musculoskeletal Disorders: Chronic Back Pain Endocrine Hx Endocrine Disorders: No HEENT HX ENT Disorders: No Cancer Hx Cancer: Yes Cancer: Breast, Colon Psychosocial Hx Psychiatric Problems: No Integumentary HX Skin/Integumentary Disorder: No Blood Transfusions Hx Blood Disorders: No Adverse Reaction to a Blood Tr: No Family Medical History Significant Family History: Cancer Family Medial History: Cancer 19 FATHER (BLADDER) 19 MOTHER (LIVER ) Myocardial infarction 19 MOTHER Parkinson's disease 19 FATHER Physical Exam Vital Signs Vital Sign - Last 12Hours 09/09/16 09/09/16 14:18 14:20 Temp 97.4 Pulse 85 Resp 18 B/P (MAP) 80/43 Pulse Ox 100 O2 Delivery Nasal Cannula O2 Flow Rate 2.00 Capillary Refill : Less Than 3 Seconds Progress/Results/Core Measures Results/Orders Lab Results Laboratory Tests Test 09/09/16 14:38 09/09/16 15:49 Range/Units White Blood Count 6.9 4.3-11.0 10^3/uL Red Blood Count 3.58 L 4.35-5.85 10^6/uL Hemoglobin 11.0 L 11.5-16.0 G/DL Hematocrit 35 35-52 % Mean Corpuscular Volume 99 80-99 FL Mean Corpuscular Hemoglobin 31 25-34 PG Mean Corpuscular Hemoglobin Concent 31 L 32-36 G/DL Red Cell Distribution Width 12.6 10.0-14.5 % Platelet Count 134 130-400 10^3/uL Mean Platelet Volume 9.8 7.4-10.4 FL Neutrophils (%) (Auto) 79 H 42-75 % Lymphocytes (%) (Auto) 9 L 12-44 % Monocytes (%) (Auto) 11 0-12 % Eosinophils (%) (Auto) 1 0-10 % Basophils (%) (Auto) 0 0-10 % Neutrophils # (Auto) 5.5 1.8-7.8 X 10^3 Lymphocytes # (Auto) 0.6 L 1.0-4.0 X 10^3 Monocytes # (Auto) 0.8 0.0-1.0 X 10^3 Eosinophils # (Auto) 0.1 0.0-0.3 10^3/uL Basophils # (Auto) 0.0 0.0-0.1 10^3/uL Prothrombin Time 12.3 12.2-14.7 SEC INR Comment 0.9 0.8-1.4 Activated Partial Thromboplast Time 20 L 24-35 SEC Sodium Level 138 135-145 MMOL/L Potassium Level 4.4 3.6-5.0 MMOL/L Chloride Level 104 98-107 MMOL/L Carbon Dioxide Level 25 21-32 MMOL/L Anion Gap 9 5-14 MMOL/L Blood Urea Nitrogen 26 H 7-18 MG/DL Creatinine 0.94 0.60-1.30 MG/DL Estimat Glomerular Filtration Rate 57 BUN/Creatinine Ratio 28 Glucose Level 163 H 70-105 MG/DL Calcium Level 9.4 8.5-10.1 MG/DL Magnesium Level 2.0 1.8-2.4 MG/DL Total Bilirubin 0.5 0.1-1.0 MG/DL Aspartate Amino Transf (AST/SGOT) 20 5-34 U/L Alanine Aminotransferase (ALT/SGPT) < 6 0-55 U/L Alkaline Phosphatase 64 40-136 U/L Myoglobin 68.1 10.0-92.0 NG/ML Troponin I < 0.30 <0.30 NG/ML Total Protein 6.0 L 6.4-8.2 GM/DL Albumin 3.5 3.2-4.5 GM/DL Urine Color YELLOW Urine Clarity CLEAR Urine pH 6 5-9 Urine Specific [place] 1.020 1.016-1.022 Urine Protein 2+ H NEGATIVE Urine Glucose (UA) NEGATIVE NEGATIVE Urine Ketones NEGATIVE NEGATIVE Urine Nitrite NEGATIVE NEGATIVE Urine Bilirubin NEGATIVE NEGATIVE Urine Urobilinogen NORMAL NORMAL MG/DL Urine Leukocyte Esterase 3+ H NEGATIVE Urine RBC (Auto) NEGATIVE NEGATIVE Urine RBC 0-2 /HPF Urine WBC 50-100 H /HPF Urine Squamous Epithelial Cells 2-5 /HPF Urine Crystals NONE /LPF Urine Bacteria FEW H /HPF Urine Casts PRESENT /LPF Urine Hyaline Casts 10-25 H /LPF Urine Mucus SMALL H /LPF Urine Culture Indicated YES My Orders Orders - BEV DAIGLE DO O2 (09/09/16 14:18) Ekg Tracing (09/09/16 14:18) Cbc With Automated Diff (09/09/16 14:18) Comprehensive Metabolic Panel (09/09/16 14:18) Protime With Inr (09/09/16 14:18) Partial Thromboplastin Time (09/09/16 14:18) Magnesium (09/09/16 14:18) Chest 1 View, Ap/Pa Only (09/09/16 14:18) Cardiac Profile 1 (09/09/16 14:18) Cardiac Profile 2 (09/09/16 20:18) Myoglobin Serum (09/09/16 14:18) Ct Head Wo (09/09/16 14:18) Monitor-Rhythm Ecg Trace Only (09/09/16 14:18) Saline Lock/Iv-Start (09/09/16 14:30) Ns Iv 1000 Ml (Sodium Chloride 0.9%) (09/09/16 14:30) Ua Culture If Indicated (09/09/16 15:42) Urine Culture (09/09/16 15:49) Ceftriaxone Injection (Rocephin Injectio (09/09/16 16:15) Medications Given in ED Current Medications Medications Dose Ordered Sig/Shayne Route Start Time Stop Time Status Last Admin Dose Admin Sodium Chloride 1,000 ml @ 0 mls/hr Q0M ONCE IV 09/09/16 14:30 09/09/16 14:32 DC 09/09/16 14:51 1,000 MLS/HR Vital Signs/I&O Vital Sign - Last 12Hours 09/09/16 09/09/16 14:18 14:20 Temp 97.4 Pulse 85 Resp 18 B/P (MAP) 80/43 Pulse Ox 100 98 O2 Delivery Nasal Cannula Room Air O2 Flow Rate 2.00 Blood Pressure Mean: 55 Departure Impression Impression: Primary Impression: Near syncope Additional Impressions: Dehydration UTI (urinary tract infection) Disposition: 01 HOME, SELF-CARE Condition: Improved Departure-Patient Inst. Referrals: NICOLE BOLAÑOS MD (PCP/Family) Primary Care Physician Patient Instructions: Dehydration, Adult (DC), Syncope (Fainting) (DC), Urinary Tract Infection, Adult (DC) Add. Discharge Instructions: LOTS OF CLEAR LIQUIDS TAKE YOUR MEDICATIONS PRESCRIBED, DO NOT TAKE YOUR ANXIETY PILL MORE OFTEN THAN 6 HOURS APART HAVE OUTPATIENT TESTS RESCHEDULED FOLLOW UP WITH DR. BOLAÑOS AND DR. CATHERINE IN THE NEXT FEW DAYS RETURN TO ER IF WORSEAll discharge instructions reviewed with patient and/or family. Voiced understanding. Scripts Cefdinir (Cefdinir) 300 Mg Capsule 300 MG PO BID for FOR INFECTION, #20 CAP Prov: BEV DAIGLE DO 09/09/16 BEV DAIGLE DO Sep 09, 2016 16:23
[2016-09-09 17:04] VITALS: BP 123/65
== END 2016-09-09 17:04 | disposition home or self-care (01) ==
LOC: EDUNIT# 14:08 → ER 14:11
DX: R55 Syncope and collapse (principal); N39.0 Urinary tract infection, site not specified; E86.0 Dehydration; I10 Essential (primary) hypertension; E78.00 Pure hypercholesterolemia, unspecified; G20 Parkinson's disease; K21.9 Gastro-esophageal reflux disease without esophagitis; R06.02 Shortness of breath; Z79.899 Other long term (current) drug therapy
CPT/HCPCS: 36415; 70450; 71010; 80053; 81000; 83735; 83874; 84484; 85025; 85610; 85730; 87088; 93041; 96361; 96365

== ENCOUNTER → 2016-11-18 | Outpatient (CLI) | payer MEDICARE, OTHER ==
[~2016-11-18] MED LIST changes: +CEFD300C3 PO
--- NOTE | 2016-11-18 11:38 | Diagnostic Imaging Report ---
PROCEDURE: US Bilateral lower extremity arterial. TECHNIQUE: Multiple real-time grayscale images are obtained through both lower extremity arterial systems with color Doppler imaging and color Doppler spectral analysis. INDICATION: Claudication. There are no prior studies available for comparison. There is fairly good arterial blood flow to both lower extremities. Triphasic and biphasic waveforms were seen, and there is no abrupt alteration in the velocities to suggest a hemodynamically significant stenosis. During the course of the exam a 0.9 x 5.0-cm Meyer cyst was identified in the left popliteal fossa. IMPRESSION: 1. There is no evidence for a hemodynamically significant stenosis of either lower extremity. 2. If clinical concern regarding an underlying abnormality persists and further imaging is desired, then CTA of the aorta with bilateral runoffs would be recommended. 3. 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 Dictated by: Dictated on workstation # [id number]
== END ==
LOC: RAD 09:50
PROVIDERS: ATTEND Internal Medicine Interventional Cardiology
DX: M71.22 Synovial cyst of popliteal space [Baker], left knee (principal); I42.0 Dilated cardiomyopathy; R06.02 Shortness of breath
CPT/HCPCS: 93925

== ENCOUNTER → 2016-11-18 | Outpatient (CLI) | payer MEDICARE, OTHER | LOC: CARD 09:51 | PROVIDERS: ATTEND Internal Medicine Interventional Cardiology | DX: I42.0 Dilated cardiomyopathy (principal); I73.9 Peripheral vascular disease, unspecified; R06.02 Shortness of breath | CPT/HCPCS: 93306 ==

== ENCOUNTER → 2017-05-17 | Outpatient (CLI) | payer MEDICARE, OTHER ==
[~2017-05-17] MED LIST changes: -OMEP2.5S PO; +OMEP2.5S2 PO
== END ==
LOC: CARD 10:38
PROVIDERS: ATTEND Internal Medicine Interventional Cardiology
DX: I42.9 Cardiomyopathy, unspecified (principal); I12.9 Hypertensive chronic kidney disease with stage 1 through stage 4 chronic kidney disease, or unspecified chronic kidney disease; N18.3 Chronic kidney disease, stage 3 (moderate); R06.02 Shortness of breath
CPT/HCPCS: 93306

== ENCOUNTER 2017-06-07 08:00 | Inpatient (IN) | payer MEDICARE, OTHER ==
[~2017-06-07] VITALS: Ht 177.8 cm; Wt 62.1 kg
[2017-06-07 08:00] VITALS: BP 90/54
[2017-06-07] MEDS ORDERED: ALPR0.25 PO (08:58)
[2017-06-07] MEDS ORDERED: SPIR25TA3 PO (08:58)
[2017-06-07] MEDS ORDERED: FURO20TA4 PO (08:58)
[2017-06-07] MEDS ORDERED: LISI-556 PO (08:58)
[2017-06-07] MEDS ORDERED: RASA1TAB4 PO (08:58)
[2017-06-07] MEDS ORDERED: METO-333 PO (08:58)
[2017-06-07] MEDS ORDERED: POTA20TA15 PO (08:58)
[2017-06-07] MEDS ORDERED: ALPRAZolam 0.25 MG (XANAX) TAB PO PRN (10:30)
--- NOTE | 2017-06-07 10:44 | PM&R Post Admission Assessment ---
Post Admission Physician Asses The preadmission screen agrees with the post admission assessment that the patient is a good candidate for inpatient rehabilitation. The patient will have a comprehensive program of inpatient rehabilitation with a goal of maximizing level of functional independence prior to discharge home with spouse. The patient will have PT/OT ninety minutes per day, each discipline, five days a week for gait, strengthening, conditioning, balance, ADLs, any patient/family/caregiver training as necessary. Speech therapy to do cognitive assessment and treat as indicated. Rehabilitation nursing to assist with bowel, bladder, skin, , medication administration, pain management. Pulmonary Function Technician to assist with discharge planning, community reentry. SCD's for DVT prophylaxis. She appears to be well motivated to participate in three hours of therapy a day. She should be able to tolerate three hours of therapy a day from a medical standpoint. She should benefit from the three hours of therapy a day. She has a reasonable discharge plan, reasonable discharge rehabilitation goals and a supportive family. She has various comorbidities that need to be closely monitored with medications and treatments adjusted on a daily basis as needed. These include: progressive Park D HTN Barriers to discharge for this patient who had been independent prior to this are for her to be modified independent to supervision for ADLs and mobility skills prior to discharge home with spouse, so as to lessen the burden of the caregivers. Risks for this patient include: 1. Fall 2. Fracture 3. DVT 4. Pulmonary embolism 5. Poorly controlled HTN 6. Skin breakdown 7. Contractures 8. Poorly controlled pain 9. Urinary retention 10. UTI 11. Respiratory infection 12. Aspiration 13. progressive Park D Estimated Length of Stay: 14 days Prognosis: Rehab prognosis appears good for goal of discharge home with spouse modified independent to supervision for ADLs and mobility skills. The patient had been Modified Independent with a 4 Wheeled walker prior to this. [facility] CODE 03.2 Etiologic DX ELOISE Beach MD Jun 07, 2017 10:44
--- NOTE | 2017-06-07 10:57 | ST Cognitive Linguistic Eval ---
Speech Evaluation-General Medical Diagnosis Debility Onset Date: Jun 06, 2017 Therapy Diagnosis Therapy Diagnosis: Moderate Hypofunctional Dysphonia Precautions Precautions/Isolations: Fall Prevention, Standard Precautions Referral Referring Physician: Dr. Seven Manzo Reason for Referral: Evaluation/Treatment Cognitive, Speech, Language, and Voice Medical History Pertinent Medical History: Parkinson's Reviewed History: Yes Speech PLF-Current Status Prior Level of Function The patient denied prior challenges with speech, language, or cognition. The patient does report prior difficulty with voicing volume and reports work with speech pathology in the past. Subjective The patient was seated upright in recliner upon entrance. The patient greeted the clinician and was agreeable to participation in the speech, language, cognition, and voice evaluation. Language Eval: Auditory Comprehends Simple Yes/No Ques: Functional Indent/Objects Multiple Magdaleno: Functional Ident/Pics in Multiple [place]daleno: Functional Follows 1-Step Commands: Functional Follows Complex Directions: Functional Follows General Conversations: Functional The patient pleasantly participates in conversation, however, intensity levels remain low. Language Eval: Verbal Language Completes Spontaneous Greeting: Functional Produces Auto, Serial Info: Functional Imitates Simple Words/Phrases: Functional Word Finding: Functional Requests Basic Needs: Functional States Basic Personal Info: Functional Expresses Complex Ideas: Functional Cognitive Patient Orientation The patient is independently oriented to self, location, date of , month, year, and day of week. Objective Cognitive Domain Attention: WNL Memory: WNL Problem Solving: Functional Objective Oral Motor/Speech Production The patient displays moderate hypofunctional dysphonia characterized by low intensity (volume). At this time, the patient is able to sustain an /ah/ at comfortable volume levels for 8:33 seconds and a loud /ah/ for 5:16 seconds. Impression The patient demonstrated cognitive linguistic skills grossly within normal limits. The patient does display moderate hypofunctional dysphonia characterized by reduced intensity. Communication/Social Cognition Comprehension: 5 Expression: 4 (Voice intensity, only.) Social Interaction: 6 Problem Solvin Memory: 6 Speech Patient Assess Expression of Ideas/Wants: Expression (4) Understanding Vebal Content: Understands (4) Brief Interview-Mental Status: Yes Repetition of Three Words: Three (3) Temporal Orientation: Year: Correct (3) Temporal Orientation: Month: Accurate within 5 days(2) Temporal Orientation: Day: Correct (1) Recall : Wear to say "Sock": Yes, no cue required (2) Recall : Color: Yes, no cue required (2) Recall : Bed: Yes, no cue required (2) Speech Short Term Goals Short Term Goals Short Term Goals 1. The patient will display a sustained /ah/ at comfortable volume levels for 12 seconds and at loud volume levels with 8 seconds. 2. The patient will demonstrate diaphragmatic breathing with 80% accuracy and mild clinician verbal cueing. Time Frame-STG: One Week Speech X Ray Equipment Tester Goals Half-Way Goals 1. The patient will display improved conversational volumes for increased safety and function. Time Frame: Two Weeks Speech-Plan Treatment Plan Speech Therapy Treatment Plan: Continue Plan of Care Continue skilled speech pathology to target functional intensity levels. Treatment Duration: Jun 21, 2017 Frequency: At least 5 of 7 days/Wk (IRF) Estimated Hrs Per Day: .5 hour per day Rehab Potential: Guarded Safety Risks/Education Teaching Recipient: Patient Teaching Methods: Discussion Response to Teaching: Verbalize Understanding Education Topics Provided: Results, Recommendations, Plan of Care Time Speech Therapy Time In: 10:00 Speech Therapy Time Out: 10:30 Total Billed Time: 30 Billed Treatment Time 1, PAIGE CALDERA Jun 07, 2017 10:57
[2017-06-07 11:00] VITALS: BP 88/55
--- NOTE | 2017-06-07 11:05 | Physical Therapy Evaluation ---
PT Evaluation-General Medical Diagnosis Admission Date Jun 07, 2017 at 08:00 Medical Diagnosis: Debility Onset Date: Jun 06, 2017 Therapy Diagnosis Therapy Diagnosis: HTN, muscle weakness Height/Weight Height (Feet): 5 Height (Inches): 10.00 Weight (Pounds): 127 Weight (Ounces): 5.0 Precautions Precautions/Isolations: Fall Prevention, Standard Precautions Referral Physician: Jovany Reason for Referral: Evaluation/Treatment Medical History Pertinent Medical History: GERD, HTN, Parkinson's Additional Medical History SOB, colon CA, breast CA, hyperlipidemia, chronic back pain, surg (appendectomy , mastectomy, cholecystectomy, colonoscopy, hysterectomy, tonsillectomy) Reviewed History: Yes Social History Home: Single Level Current Living Status: Significant Other Entry Into Home: Stairs With Railing PT Steps Into Home: 2 Prior/Core FIM Prior Level of Function Functional [place] Measure 0=Not Assessed/NA 4=Minimal Assistance 1=Total Assistance 5=Supervision or Setup 2=Maximal Assistance 6=Modified [place] 3=Moderate Assistance 7=Complete [place] Bed Mobility: 6 Transfers (B,C,W/C) (FIM): 6 Gait: 6 Patient has a bed rail she uses and a 4 wheeled walker PT Evaluation-Current Subjective Patient in recliner pre tx, agrees to PT, no complaints of pain. Pt/Family Goals "to get stronger", more independent at home Objective Patient Orientation: Person, Place, Situation ROM/Strength ROM Lower Extremities Patient has slightly limited general hip ROM and tight hamstrings bilaterally. Strenght Lower Extremities 4+/5 gross bilateral lower extremities Neuromuscular (Tone, Coordination, Reflexes) NT Sensory Hearing: Functional Sensation Right Lower Extremit: Intact Sensation Left Lower Extremity: Intact Sensation Lower Extremities Patient has no complaints of numbness or tingling in lower extremities. She states she has decreased circulation in her legs but it has not affected her sensation. Transfers Functional [place] Measure 0=Not Assessed/NA 4=Minimal Assistance 1=Total Assistance 5=Supervision or Setup 2=Maximal Assistance 6=Modified [place] 3=Moderate Assistance 7=Complete IndependenceIRFPAI Quality Coding Scale 6 Independent with activity with or without an assistive device 5 Patient requires set up or clean up by helper. Patient completes activity by themselves 4 Supervision or touching assist (CGA). [place] provide cues , steadying assist 3 The helper provides less than half the effort to complete the activity 2 The helper provides more than half the effort to complete the activity 1 Dependent. The helper does all the effort to complete an activity 7 Patient refused to complete or attempt activity 9 The patient did not perform the activity before the current illness or injury 88 Not attempted due to Medical conditions or safety concerns Transfers (B, C, W/C) (FIM): 4 Scootin Rollin Roll Left to Right (QC): 4 Supine to/from Sit: 5 Sit to/from Stand: 4 bed t/f WC(FIM only if WC use): 4 Sit to Lying (QC): 4 Lying to Sitting/Side of Bed(Q: 4 Sit to Stand (QC): 4 Chair/Zas-ug-Wrbvv Xfer(QC): 4 Car Transfer (QC): 4 Patient performs bed mobility with SBA, she has some difficulty with supine <-> sit but is able to do it without assist, transfers with CGA, car transfer CGA. Gait Does the Patient Walk?: Yes Mode of Locomotion: Walk Anticipated Mode of Locomotion: Walk Gait (FIM): 4 Walk 10 feet (QC): 4 Walk 50 ft with 2 Turns(QC): 4 Walk 150 ft (QC): 4 Walking 10ft/uneven surface-QC: 4 Distance: 250', 150' Gait Level of Assist: 4 Gait Persons Needed: 1 Gait Assistive Device: Walker 4 Wheeled Comments/Gait Description Patient can ambulate 250' with a 4 wheeled walker with CGA, including 50' with at least 2 turns of 90 degrees and 10' over an uneven surface. She ambulates slowly with short steps but not a festinating gait until occasionally when she turns. Patient has a tendency to leave the walker behind before sitting. Wheelchair Training Does the Pt Use a Wheelchair?: No Stairs Stairs (FIM): 2 #of Steps: 4 Level of Assist: 4 1 Step (curb) (QC): 4 4 Steps (QC): 4 12 Steps (QC): 88 Patient can go up and down 4 steps using 2 handrails with CGA. Cues for foot placement and safety. Balance Sitting Static: Normal Sitting Dynamic: Normal Standing Static: Fair Standing Dynamic: Fair Picking up an Object (QC): 4 Assessment/Needs Patient has imairments in mobility, strength, ROM, and endurance. She has trouble turning sometimes during ambulation. Rehab Potential: Fair PT Short Term Goals Short Term Goals Time Frame: Jun 14, 2017 Transfers (B,C,W/C) (FIM): 5 Gait (FIM): 5 Gait Distance Comment: 300' Gait Level of Assist: 5 Gait Assistive Device: Walker 4 Wheeled PT Group Home Goals Group Home Goals PT Group Home Goals Time Frame: Jun 28, 2017 Transfers (B,C,W/C) (FIM): 6 Sit to Lying (QC): 6 Lying-Sitting on Side/Bed(QC): 6 Sit to Stand (QC): 6 Rollin Roll Left to Right (QC): 6 Chair/Wtt-mq-Jxgls Xfer(QC): 6 Car Transfer (QC): 6 Gait (FIM): 6 Distance: 400' Walk 10 feet (QC): 6 Walk 10ft-Uneven Surface(QC): 6 Walk 50ft with 2 Turns (QC): 6 Walk 150 ft (QC): 6 Gait Level of Assist: 6 Gait Assistive Device: Walker 4 Wheeled Stairs (FIM): 5 # of Steps: 12 1 Step (curb) (QC): 4 4 Steps (QC): 4 12 Steps (QC): 4 Stairs Level Of Assist: 5 Picking up an Object (QC): 4 PT Plan Problem List Problem List: Activity Tolerance, Functional Strength, Safety, Balance, Gait, Transfer, Bed Mobility, ROM Treatment/Plan Treatment Plan: Continue Plan of Care Treatment Plan: Bed Mobility, Education, Functional Activity Azucena, Functional Strength, Group Therapy, Gait, Safety, Therapeutic Exercise, Transfers Treatment Duration: Jun 28, 2017 Frequency: At least 5 of 7 days/Wk (IRF) Estimated Hrs Per Day: 1.5 hours per day Patient and/or Family Agrees t: Yes Safety Risks/Education Patient Education: Gait Training, Transfer Techniques, Steps, Correct Positioning, Disease Process, Safety Issues Teaching Recipient: Patient Teaching Methods: Demonstration, Discussion Response to Teaching: Reinforcement Needed Discharge Recommendations Plan Patient will perform bed mobility and transfer training, balance and endurance training, functional strengthening, stair training, gait training, and education , to improve functional mobility and independence at home. Therapy D/C Recommendations: Home w/ Family Support Time/GCodes Time In: 900 Time Out: 1000 Total Billed Treatment Time: 60 Total Billed Treatment 1 visit EVM 30' GT 15' FA 15' ABDIFATAH WILLIS PT Jun 07, 2017 11:05
[2017-06-07] MEDS: SINEMET 25/100 (CARBIDOPA/LEVODOPA) TAB PO SCH ×2 (12:03→20:43)
--- NOTE | 2017-06-07 12:10 | Occupational Therapy Eval ---
OT Evaluation-General/PLF Medical Diagnosis Admission Date Jun 07, 2017 at 08:00 Medical Diagnosis: Debility Onset Date: Jun 06, 2017 Therapy Diagnosis Therapy Diagnosis: Weakness Height/Weight Height (Feet): 5 Height (Inches): 10.00 Weight (Pounds): 137 Weight (Ounces): 0.0 Precautions Precautions/Isolations: Fall Prevention, Standard Precautions Weight Bear Status Weight Bearing Restriction: Weight Bearing/Tolerated Referral Physician: Jovany Referral Reason: Activity Tolerance, Self Care, Evaluation/Treatment, Strengthening/ROM Medical History Pertinent Medical History: GERD, HTN, Parkinson's Current History Pt. states that her family feels like she has declined in strength. States that she has fallen twice, but didn't hurt herself. Pt's in hospital at this time. Reviewed History: Yes Social History Home: Single Level Current Living Status: Significant Other Entry Into Home: Stairs With Railing Steps Into Home: 2 ADL-Prior Level of Function ADL PLOF Comments Pt. states that her spouse would assist her down into the bathtub, and would assist her with bathing as needed. pt. states that she does have a seat if needed. Spouse assists her with donning her bra. DME/Equipment: Bath Chair, Tub/Shower DME/Equipment Comments Pt. has a walker with a seat. Drive Self: No OT Current Status Subjective No pain reported. Appearance Pt. up in chair. Direct admit from home. Daughter in room and states that pt. already spongebathed and dressed at home. Mental Status/Objective Patient Orientation: Person, Place Current Glasses/Contacts: Yes Hand Dominance: Right Upper Extremity ROM Pt. is able to flex bilateral shoulders to approximately 100 degrees. Full AROM noted in all other joints. Upper Extremity Strength Pt. demonstrates 2+/5 bilateral shoulder strength 3/5 left elbow/hand 2+/5 right elbow/hand ADL-Treatment Functional [place] Measure 0=Not Assessed/NA 4=Minimal Assistance 1=Total Assistance 5=Supervision or Setup 2=Maximal Assistance 6=Modified [place] 3=Moderate Assistance 7=Complete IndependenceIRFPAI Quality Coding Scale 6 Independent with activity with or without an assistive device 5 Patient requires set up or clean up by helper. Patient completes activity by themselves 4 Supervision or touching assist (CGA). [place] provide cues , steadying assist 3 The helper provides less than half the effort to complete the activity 2 The helper provides more than half the effort to complete the activity 1 Dependent. The helper does all the effort to complete an activity 7 Patient refused to complete or attempt activity 9 The patient did not perform the activity before the current illness or injury 88 Not attempted due to Medical conditions or safety concerns Lower Body Dressing (FIM): 5 (Pt. able to doff/don shoes and socks with SBA.) Lower Body Dressing (QC): 4 On/Off Footwear (QC): 4 Transfers (B, C, W/C) (FIM): 5 (SBA to stand and ambulate with rolling walker.) Other Treatments Pt. already dressed. OT initiated evaluation. Pt. states that she would like to get stronger. Family reports that they would like her to improve her core strength as well. Education OT Patient Education: Correct positioning, Modified ADL techniques, Progress toward Goal/Update tx plan, Purpose of tx/functional activities, Reviewed precautions, Rehab process, Transfer techniques Teaching Recipient: Patient Teaching Methods: Demonstration, Discussion Response to Teaching: Verbalize Understanding, Return Demonstration OT Short Term Goals Short Term Goals Time Frame: Jun 14, 2017 Eating(FIM): 5 Grooming(FIM): 5 Bathing(FIM): 5 Upper Body Dressing(FIM): 4 Lower Body Dressing(FIM): 5 Toileting(FIM): 4 Transfers (B,C,W/C) (FIM): 5 Toilet/Commode Transfer(FIM): 5 Shower Transfer(FIM): 4 Additional Short Term Goals: 1-Demonstrate ADL Tasks, 2-Verbalize Understanding , 3-ImproveStrength/Azucena 1=Demonstrate adherence to instructed precautions during ADL tasks. 2=Patient will verbalize/demonstrate understanding of assistive devices/ modifications for ADL. 3=Patient will improve strength/tolerance for activity to enable patient to perform ADL's. OT Senior Care Goals Senior Care Goals Time Frame: Jun 21, 2017 Eating (FIM): 6 Eating (QC): 6 Groomin Oral Hygiene (QC): 6 Bathing(FIM): 5 Shower/Bathe Self (QC): 4 Upper Body Dressing(FIM): 5 Upper Body Dressing (QC): 4 Lower Body Dressing(FIM): 5 Lower Body Dressing (QC): 4 On/Off Footwear (QC): 4 Toileting(FIM): 6 Toileting Hygiene (QC): 6 Transfers (B,C,W/C) (FIM): 6 Toilet/Commode Transfer(FIM): 6 Toilet/Commode Transfer (QC): 6 Shower Transfer(FIM): 5 Additional Goals: 1-Demonstrate ADL Tasks, 2-Verbalize Understanding, 3- ImproveStrength/Azucena 1=Demonstrate adherence to instructed precautions during ADL tasks. 2=Patient will verbalize/demonstrate understanding of assistive devices/ modifications for ADL. 3=Patient will improve strength/tolerance for activity to enable patient to perform ADL's. OT Education/Plan Problem List/Assessment Assessment: Decreased Activ Tolerance, Dependent Transfers, Impaired Funct Balance, Impaired I ADL's, Impaired Self-Care Skills, Restricted Funct UE ROM Discharge Recommendations Plan/Recommendations: Continue POC Therapy D/C Recommendations: Home w/ Family Support, Occupational Therapy Home Care Target Placement Home with family support and home health as needed. Treatment Plan/Plan of Care Treatment,Training & Education: Yes Patient would benefit from OT for education, treatment and training to promote independence in ADL's, mobility, safety and/or upper extremity function for ADL' s. Plan of Care: ADL Retraining, Functional Mobility, Group Exercise/Act as Ind, UE Funct Exercise/Act Treatment Duration: Jun 21, 2017 Frequency: At least 5 of 7 days/Wk (IRF) Estimated Hrs Per Day: 1.5 hours per day Agreement: Yes Rehab Potential: Good Time/GCodes Start Time: 08:45 Stop Time: 09:15 Total Time Billed (hr/min): 30 Billed Treatment Time 1, EVM x 30minutes ZACHERY WHITAKER OT Jun 07, 2017 12:10
[2017-06-07] MEDS: RASAGILINE 1 MG PO SCH (12:11)
--- NOTE | 2017-06-07 13:09 | Occupational Ther Daily Note ---
OT Current Status-Daily Note Subjective Pt in bed, agrees to treatment. Mental Status/Objective Functional [place] Measure 0=Not Assessed/NA 4=Minimal Assistance 1=Total Assistance 5=Supervision or Setup 2=Maximal Assistance 6=Modified [place] 3=Moderate Assistance 7=Complete [place] ADL-Treatment Pt supine to sit with supervision. Pt donned shoes with set up. Sit to stand with supervision. Gait to restroom with 4WW. Pt demonstrated ability to perform toilet transfer with supervision using grab bar for balance and safety. Functional [place] Measure 0=Not Assessed/NA 4=Minimal Assistance 1=Total Assistance 5=Supervision or Setup 2=Maximal Assistance 6=Modified [place] 3=Moderate Assistance 7=Complete IndependenceIRFPAI Quality Coding Scale 6 Independent with activity with or without an assistive device 5 Patient requires set up or clean up by helper. Patient completes activity by themselves 4 Supervision or touching assist (CGA). [place] provide cues , steadying assist 3 The helper provides less than half the effort to complete the activity 2 The helper provides more than half the effort to complete the activity 1 Dependent. The helper does all the effort to complete an activity 7 Patient refused to complete or attempt activity 9 The patient did not perform the activity before the current illness or injury 88 Not attempted due to Medical conditions or safety concerns Toilet/Commode Transfer (FIM): 5 Toilet Transfer (QC): 4 Other Treatment Gait to therapy gym with 4WW, slow pace. Pt completed bilateral UE exercises to increase strength needed for ADLs and transfers. Pt performed 2 sets of 10 reps for shoulder flexion, forward press, biceps curls, and wrist flex/ext with dowel shilo. Brief rest breaks between exercises. Arm bike x5 minutes to increase overall strength and activity tolerance needed for functional tasks. Pt completed activity with minimal resistance and slow pace. One brief rest break. Pt returned to room, resting in bed with needs met after session. OT Short Term Goals Short Term Goals Time Frame: Jun 14, 2017 Eating(FIM): 5 Grooming(FIM): 5 Bathing(FIM): 5 Upper Body Dressing(FIM): 4 Lower Body Dressing(FIM): 5 Toileting(FIM): 4 Transfers (B,C,W/C) (FIM): 5 Toilet/Commode Transfer(FIM): 5 Shower Transfer(FIM): 4 Additional Short Term Goals: 1-Demonstrate ADL Tasks, 2-Verbalize Understanding , 3-ImproveStrength/Azucena 1=Demonstrate adherence to instructed precautions during ADL tasks. 2=Patient will verbalize/demonstrate understanding of assistive devices/ modifications for ADL. 3=Patient will improve strength/tolerance for activity to enable patient to perform ADL's. OT Tanning Wheel Filler Goals Tanning Wheel Filler Goals Time Frame: Jun 21, 2017 Eating (FIM): 6 Eating (QC): 6 Groomin Oral Hygiene (QC): 6 Bathing(FIM): 5 Shower/Bathe Self (QC): 4 Upper Body Dressing(FIM): 5 Upper Body Dressing (QC): 4 Lower Body Dressing(FIM): 5 Lower Body Dressing (QC): 4 On/Off Footwear (QC): 4 Toileting(FIM): 6 Toileting Hygiene (QC): 6 Transfers (B,C,W/C) (FIM): 6 Toilet/Commode Transfer(FIM): 6 Toilet/Commode Transfer (QC): 6 Shower Transfer(FIM): 5 Additional Goals: 1-Demonstrate ADL Tasks, 2-Verbalize Understanding, 3- ImproveStrength/Azucena 1=Demonstrate adherence to instructed precautions during ADL tasks. 2=Patient will verbalize/demonstrate understanding of assistive devices/ modifications for ADL. 3=Patient will improve strength/tolerance for activity to enable patient to perform ADL's. OT Education/Plan Discharge Recommendations Plan/Recommendations: Continue POC Treatment Plan/Plan of Care Patient would benefit from OT for education, treatment and training to promote independence in ADL's, mobility, safety and/or upper extremity function for ADL' s. Plan of Care: ADL Retraining, Functional Mobility, Group Exercise/Act as Ind, UE Funct Exercise/Act Treatment Duration: Jun 21, 2017 Frequency: At least 5 of 7 days/Wk (IRF) Estimated Hrs Per Day: 1.5 hours per day Agreement: Yes Rehab Potential: Good Time/GCodes Start Time: 10:30 Stop Time: 11:15 Total Time Billed (hr/min): 45 Billed Treatment Time 1 visit, ADL(15minutes), EXx2(30minutes) JIMMIE WHITTINGTON OT Jun 07, 2017 13:09
--- NOTE | 2017-06-07 13:31 | Physical Therapy Daily Note ---
PT Daily Note-Current Subjective Patient in chair pre tx, agrees to PT, no complaints of pain. Appearance Patient in bed post tx with nurse call, phone, tray, all needs met. Mental Status Patient Orientation: Person, Place, Situation Transfers Functional [place] Measure 0=Not Assessed/NA 4=Minimal Assistance 1=Total Assistance 5=Supervision or Setup 2=Maximal Assistance 6=Modified [place] 3=Moderate Assistance 7=Complete IndependenceIRFPAI Quality Coding Scale 6 Independent with activity with or without an assistive device 5 Patient requires set up or clean up by helper. Patient completes activity by themselves 4 Supervision or touching assist (CGA). [place] provide cues , steadying assist 3 The helper provides less than half the effort to complete the activity 2 The helper provides more than half the effort to complete the activity 1 Dependent. The helper does all the effort to complete an activity 7 Patient refused to complete or attempt activity 9 The patient did not perform the activity before the current illness or injury 88 Not attempted due to Medical conditions or safety concerns Transfers (B, C, W/C) (FIM): 4 Scootin Rollin Supine to/from Sit: 4 Sit to/from Stand: 5 Bed to/from Chair: 5 Patient needed min assist getting one leg into bed. Gait Training Gait (FIM): 5 Distance: 300', 150' Gait Level of Assist: 5 Gait Persons Needed: 1 Gait Assistive Device: Walker 4 Wheeled Patient ambulates slowly but carefully, tends to festinate while turning. Exercises LAQ alternating for 5 min with 2# ankle weights, sit to stands 3 sets of 5 Treatments bed mobility and transfers, ambulation, functional strengthening Assessment Current Status: Fair Progress patient was breathing shallow breaths, quick breathing. She states she had a xanax for anxiety and that helps. PT Short Term Goals Short Term Goals Time Frame: Jun 14, 2017 Transfers (B,C,W/C) (FIM): 5 Gait (FIM): 5 Gait Distance Comment: 300' Gait Level of Assist: 5 Gait Assistive Device: Walker 4 Wheeled PT Chefs Goals Detention Goals PT Chefs Goals Time Frame: Jun 28, 2017 Transfers (B,C,W/C) (FIM): 6 Sit to Lying (QC): 6 Lying-Sitting on Side/Bed(QC): 6 Sit to Stand (QC): 6 Rollin Roll Left to Right (QC): 6 Chair/Pzr-en-Jmawa Xfer(QC): 6 Car Transfer (QC): 6 Gait (FIM): 6 Distance: 400' Walk 10 feet (QC): 6 Walk 10ft-Uneven Surface(QC): 6 Walk 50ft with 2 Turns (QC): 6 Walk 150 ft (QC): 6 Gait Level of Assist: 6 Gait Assistive Device: Walker 4 Wheeled Stairs (FIM): 5 # of Steps: 12 1 Step (curb) (QC): 4 4 Steps (QC): 4 12 Steps (QC): 4 Stairs Level Of Assist: 5 Picking up an Object (QC): 4 PT Plan Problem List Problem List: Activity Tolerance, Functional Strength, Safety, Balance, Gait, Transfer, Bed Mobility, ROM Treatment/Plan Treatment Plan: Continue Plan of Care Treatment Plan: Bed Mobility, Education, Functional Activity Azucena, Functional Strength, Group Therapy, Gait, Safety, Therapeutic Exercise, Transfers Treatment Duration: Jun 28, 2017 Frequency: At least 5 of 7 days/Wk (IRF) Estimated Hrs Per Day: 1.5 hours per day Patient and/or Family Agrees t: Yes Safety Risks/Education Patient Education: Gait Training, Transfer Techniques, Correct Positioning, Safety Issues Teaching Recipient: Patient Teaching Methods: Demonstration, Discussion Response to Teaching: Reinforcement Needed Time/GCodes Time In: 1300 Time Out: 1330 Total Billed Treatment Time: 30 Total Billed Treatment 1 visit EX 15' GT 15' ABDIFATAH WILLIS PT Jun 07, 2017 13:31
[2017-06-07] MEDS ORDERED: FUROSEMIDE 20 MG (LASIX) TAB PO PRN (13:45)
[2017-06-07 14:45] VITALS: BP 96/59
--- NOTE | 2017-06-07 16:48 | HISTORY AND PHYSICAL ---
DATE OF SERVICE: 06/07/2017 CHIEF COMPLAINT: Difficulty with walking. HISTORY OF PRESENT ILLNESS: The patient is an 82-year-old female patient of DR Dorado who has Parkinson' s disease and is on medication, but has had a gradual decline in her functional independence with two recent falls. Her daughter is providing more care for her than usual as the patient's spouse is currently on the rehab unit himself at this time following an ERCP for obstruction due to a gallstone. Currently, the patient is min assist for lower body dressing, standby assist for transfers. She has her own four wheel walker. The patient is min assist for ambulation short distances with a four wheel walker. She ambulates slowly with short steps. 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 Her cognitive linguistic skills grossly within normal limits other than that mentioned above. PAST MEDICAL HISTORY: Parkinson's disease, hypertension, chronic kidney disease stage III. PAST SURGICAL HISTORY: Colon resection for colon cancer, mastectomy for breast cancer, hysterectomy, colonoscopy, appendectomy, cholecystectomy, chronic back pain, hyperlipidemia. ALLERGIES: PENICILLIN. FAMILY HISTORY: Noncontributory. SOCIAL HISTORY: Essentially as per above. Lives with spouse in [place], [place]. PCP: Dr. Bonds. REVIEW OF SYSTEMS: Ten point review of systems significant for falls, gait imbalance, generalized weakness. MEDICATIONS: Lisinopril 5 mg p.o. daily, Zoloft 50 mg p.o. daily, Aldactone 25 mg p.o. daily, ASA 81 mg p.o. daily, Protonix 40 mg p.o. daily, Lopressor 12.5 mg p.o. b.i.d., Mirapex 0.125 mg p.o. at bedtime p.r.n. spasms, Sinemet 25/100 two tablets p.o. b.i.d. and 3 tablets p.o. at noon, rasagiline 1 mg p.o. daily, Xanax 0.25 mg p.o. q. 8h. p.r.n. anxiety. PHYSICAL EXAMINATION: GENERAL: Significant for a pleasant female appearing her stated age, alert and oriented, standing up, balance herself with a walker, in no acute distress. VITAL SIGNS: She is afebrile, pulse is 80, respirations 20, blood pressure 96/59, O2 sat 96% on room air. HEENT: Vision, hearing grossly intact. Speech, mild dysphonia characterized by low intensity i.e., volume. No oral lesion is noted. NECK: Supple without mass. CARDIOVASCULAR: Regular rate and rhythm. RESPIRATORY: Chest is clear. ABDOMEN: Soft, nontender, bowel sounds present. EXTREMITIES: No lower leg edema, no calf tenderness. MUSCULOSKELETAL: The patient has functional active range of motion in all 4 extremities. NEUROLOGIC: Sensation is grossly intact to touch. Cognition grossly intact. Speech as per above. Strength at shoulders 2+/5, distal left upper limb 3/5, distal right upper limb 2+/5. She has mildly impaired active flexion of the shoulder to 100 degrees. Strength in the lower extremities 4+/5. She has mildly limited general hip range of motion and tight hamstrings bilaterally. IMPRESSION: 1. Ambulatory dysfunction secondary to progressive Parkinson's disease, on meds. 2. Recent falls. 3. Chronic kidney disease, stage III. 4. Cardiomyopathy with somewhat low blood pressure at this time, takes furosemide p.r.n. 5. Anxiety, on Xanax p.r.n. 6. Hypertension, controlled with medication, now somewhat hypotensive. PLAN: The patient will have a comprehensive program of inpatient rehabilitation with goal of maximizing level of functional independence prior to discharge home with her spouse. She will need to be at maximal level of functional independence as her spouse is recuperating from a GI procedure as mentioned above. They do have a supportive daughter who will assist as needed. Please see post-admission physician evaluation for a detailed plan of care, which is a separate document. Speech therapy to do ongoing speech therapy for the dysphonia 3 to 5 times a week for 30 to 45 minute sessions per day for 10 to 14 days. Rehabilitation nursing to assist with bowel, bladder, skin care, medication administration, pain management. event services manager to assist with discharge planning, community reentry. Therapy with cardiac and fall precautions. Follow up with Dr. Bonds, PCP as per her schedule. Adjust medications as appropriate for hypertension/hypotension. ESTIMATED LENGTH OF STAY: 10 to 14 days. PROGNOSIS: Rehab progress appears good for goal of discharging home with spouse, modified independent to supervision for ADLs and mobility skills. DIET: Regular. CODE STATUS: The patient requests do not resuscitate. 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 Job ID: [id number] DocumentID: [id number] Dictated Date: 06/07/2017 16:16:27 Talent Recruiter Date: 06/07/2017 16:47:24 Dictated By: ELOISE STARKS MD MTDD
[2017-06-07 17:30] VITALS: BP 100/65
--- NOTE | 2017-06-07 20:41 | Consultation ---
History of Present Illness History of Present Illness Patient Consulted On(davin/time) 06/07/17 20:41 Date Seen by Provider: Jun 07, 2017 Time Seen by Provider: 20:40 Reason for Visit: WEAKNESS, PARKINSONS History of Present Illness PT IS AN 82 Y/O FEMALE WHO IS WELL KNOWN TO ME FROM CLINIC. SHE HAS HISTORY OF PARKINSONS DISEASE, GENERALIZED WEAKNESS AND CANNOT MANAGE WELL AT HOME. SHE REPORTS THAT SHE HAS BEEN HAVING SOME EPISODES OF FALLING, SHUFFLING GAIT, AND FAMILY WAS HOPING FOR REHAB FOR A SHORT TIME TO IMPROVE HER OVERALL FUNCTIONING AT HOME. Allergies and Home Medications Allergies Coded Allergies: Penicillins (Verified Allergy, Mild, 08/05/13) Home Medications Alprazolam 0.25 Mg Tablet, 0.5 TAB PO BID, (Reported) Alprazolam 0.25 Mg Tablet, 0.5-1 TAB PO BID PRN for ANXIETY, (Reported) Aspirin 81 Mg Tablet.dr, 81 MG PO We, (Reported) TAKES AT NOON Calcium Carbonate/Vitamin D3 1 Each Tablet, 1 TAB PO DAILY, (Reported) Carbidopa/Levodopa 1 Each Tablet, 2 TAB PO BID, (Reported) Carbidopa/Levodopa 1 Each Tablet, 3 TAB PO 1200, (Reported) Cholecalciferol (Vitamin D3) 400 Unit Tablet, 400 UNIT PO DAILY, (Reported) Furosemide 20 Mg Tablet, 20 MG PO UD PRN for WEIGHT GAIN >2.5-3 POUNDS, ( Reported) TAKE THREE TIMES A WEEK NEEDED FOR WEIGHT GAIN GREATER THAN 2.5-3 POUNDS Lisinopril 5 Mg Tablet, 5 MG PO 1200, (Reported) Metoprolol Tartrate 25 Mg Tablet, 12.5 MG PO BID, (Reported) TAKES 1/2 (25MG) TABLET Multivitamin 1 Each Tablet, 1 TAB PO DAILY, (Reported) Nitroglycerin 0.4 Mg Tab.subl, 0.4 MG SL UD PRN for CHEST PAIN, (Reported) [place]-3 Fatty Acids 1,000 Mg Capsule, 1,000 MG PO DAILY, (Reported) Omeprazole 20 Mg Capsule.dr, 20 MG PO BID, (Reported) Potassium Chloride 20 Meq Tab.er.prt, 20 MEQ PO DAILY PRN for WHEN TAKING FUROSEMIDE, (Reported) Pramipexole Di-HCl 0.25 Mg Tablet, 0.5 TAB PO BID PRN for RESTLESS LEGS, ( Reported) Rasagiline Mesylate 1 Mg Tablet, 1 MG PO DAILY, (Reported) Sertraline HCl 50 Mg Tablet, 50 MG PO HS, (Reported) Spironolactone 25 Mg Tablet, 25 MG PO DAILY, (Reported) Vitamin B Complex & Vit C No.4 150 Mg Tablet, 150 MG PO DAILY, (Reported) Patient Home Medication List Home Medication List Reviewed: Yes Past Bijcvwv-Bcyaea-Exdtxg Hx Patient Social History Alcohol Use: Denies Use Recreational Drug Use: No Smoking Status: Never a Smoker 2nd Hand Smoke Exposure: No Recent Foreign Travel: No Contact w/Someone Who Travel: No Recent Infectious Disease Expo: No Recent Hopitalizations: No Immunizations Up To Date Tetanus Booster (TDap): Unknown PED Vaccines UTD: No Date of Influenza Vaccine: Feb 07, 2017 Seasonal Allergies Seasonal Allergies: No Surgeries History of Surgeries: Yes Surgeries: Abdominal, Appendectomy, Breast, Gallbladder, Hysterectomy, Oophorectomy Respiratory History of Respiratory Disorde: No Respiratory Disorders: COPD Currently Using CPAP: No Currently Using BIPAP: No Cardiovascular History of Cardiac Disorders: Yes Cardiac Disorders: High Cholesterol, Hypertension Neurological History of Neurological Disord: Yes Neurological Disorders: Parkinson's Disease Reproductive System Hx Reproductive Disorders: No Sexually Transmitted Disease: No HIV/AIDS: No Female Reproductive Disorders: Denies Genitourinary History of Genitourinary Disor: Yes (URGENCY) Gastrointestinal History of Gastrointestinal Di: Yes Gastrointestinal Disorders: Gastroesophageal Reflux Musculoskeletal History of Musculoskeletal Dis: Yes (CHRONIC NECK AND SHOULDER PAIN) Musculoskeletal Disorders: Chronic Back Pain Endocrine History of Endocrine Disorders: No HEENT HEENT Disorders: Cataract Cancer History of Cancer: Yes Cancer: Breast, Colon Psychosocial History of Psychiatric Problem: No Integumentary History of Skin or Integumenta: No Blood Transfusions History of Blood Disorders: No Adverse Reaction to a Blood Tr: No Family Medical History Significant Family History: Cancer Family Medial History: Cancer 19 FATHER (BLADDER) 19 MOTHER (LIVER ) Myocardial infarction 19 MOTHER Parkinson's disease 19 FATHER Review of Systems-General Constitutional: No chills, No diaphoresis, malaise, weakness EENTM: No blurred vision, No hoarseness, No throat pain Respiratory: No cough, No dyspnea on exertion, No short of breath Cardiovascular: No edema, No palpitations Gastrointestinal: No abdominal pain, No constipation, No diarrhea, No nausea, No vomiting Genitourinary: no symptoms reported Musculoskeletal: muscle weakness Skin: no symptoms reported Psychiatric/Neurological: Denies Anxiety, Denies Depressed All Other Systems Reviewed Negative Unless Noted: Yes Physical Exam-General Problems Physical Exam Vital Signs Vital Signs - First Documented 06/07/17 06/07/17 08:00 17:30 Temp 96.3 Pulse 78 Resp 20 B/P (MAP) 90/54 (66) Pulse Ox 100 O2 Delivery Room Air O2 Flow Rate 2.00 Capillary Refill : Less Than 3 Seconds General Appearance: WD/WN, no apparent distress Eyes: Bilateral Eye Normal Inspection, Bilateral Eye PERRL, Bilateral Eye EOMI HEENT: PERRL/EOMI, pharynx normal Neck: non-tender, supple Respiratory: chest non-tender, lungs clear, normal breath sounds, no respiratory distress Cardiovascular: regular rate, rhythm Gastrointestinal: normal bowel sounds, non tender, soft, no organomegaly Extremities: slow capillary refill Neurologic/Psychiatric: compensation and benefits analyst II-XII nml as tested, alert, normal mood/affect, oriented x 3, motor weakness Skin: warm/dry Assessment/Plan Assessment/Plan Admission Diagnosis/Plan PARKINSON'S DISEASE GENERALIZED WEAKNESS HYPERTENSION ESOPHAGEAL REFLUX GENERALIZED ANXIETY PARKINSON'S DISEASE - RESTART SINEMET AND REQIUP. - CONTINUE WITH THERAPY GENERALIZED WEAKNESS - GENERALIZED WEAKNESS DUE TO DECREASED ACTIVITY - ENCOURAGE PHYSICAL THERAPY, OCCUPATIONAL THERAPY. HYPERTENSION - RESUME HOME MEDICATIONS ESOPHAGEAL REFLUX - RESUME PPI. GENERALIZED ANXIETY - RESTART XANAX - RESTART SSRI Admission Status: Inpatient Order (span 2 midnights) Reason for Inpatient Admission: INPT ADMISSION FOR REHABILITATION Clinical Quality Measures DVT/VTE Risk/Contraindication: Risk Factor Score Per Nursin RFS Level Per Nursing on Admit: 4+=Very High NICOLE BOLAÑOS MD Jun 07, 2017 20:41
[2017-06-07] MEDS: meTOprolol TARTRATE 25 MG (LOPRESSOR) TABLET PO SCH (20:43)
[2017-06-07] MEDS: PRAMIPEXOLE 0.125 MG (MIRAPEX) TABLET PO SCH (20:48)
[2017-06-07] MEDS ORDERED: PRAMIPEXOLE 0.125 MG (MIRAPEX) TABLET PO PRN (21:00)
[2017-06-07] MEDS ORDERED: PRAMIPEXOLE 0.125 MG (MIRAPEX) TABLET PO SCH (21:00)
[2017-06-08 05:14] VITALS: BP 121/76
[2017-06-08] MEDS: PANTOPRAZOLE 20 MG TABLET (PROTONIX) PO SCH (06:10)
[2017-06-08 06:15] LABS: HEMOGLOBIN 12.2 G/DL (11.5-16.0); MEAN PLATELET VOLUME 10.1 FL (7.4-10.4); RED BLOOD COUNT 3.95 10^6/uL (4.35-5.85); RED CELL DISTRIBUTION WIDTH 12.7 % (10.0-14.5); WHITE BLOOD COUNT 5.7 10^3/uL (4.3-11.0)
[2017-06-08 06:39] LABS: ALANINE AMINOTRANSFERASE 11 U/L (0-55); ALBUMIN 3.6 GM/DL (3.2-4.5); ALKALINE PHOSPHATASE 67 U/L (40-136); BILIRUBIN,TOTAL 0.8 MG/DL (0.1-1.0); BUN/CREATININE RATIO 24; CALCIUM 9.4 MG/DL (8.5-10.1); CARBON DIOXIDE 27 MMOL/L (21-32); CHLORIDE 102 MMOL/L (98-107); CREATININE SERUM 0.74 MG/DL (0.60-1.30); GFR ESTIMATED > 60; GLUCOSE 96 MG/DL (70-105); POTASSIUM 4.4 MMOL/L (3.6-5.0); SODIUM 138 MMOL/L (135-145); TOTAL PROTEIN 5.5 GM/DL (6.4-8.2)
[2017-06-08 08:01] VITALS: BP 107/68
[2017-06-08] MEDS: SPIRONOLACTONE 25 MG (ALDACTONE) TAB PO SCH (08:02)
[2017-06-08] MEDS: meTOprolol TARTRATE 25 MG (LOPRESSOR) TABLET PO SCH ×2 (08:02→19:56)
[2017-06-08] MEDS: PRAMIPEXOLE 0.125 MG (MIRAPEX) TABLET PO SCH ×2 (08:02→19:56)
[2017-06-08] MEDS: SINEMET 25/100 (CARBIDOPA/LEVODOPA) TAB PO SCH ×3 (08:02→19:56)
[2017-06-08] MEDS: ASPIRIN E.C. 81 MG (ECOTRIN) TAB PO SCH (08:03)
[2017-06-08] MEDS: lisINopril 5 MG (PRINIVIL) TABLET PO SCH (08:03)
[2017-06-08] MEDS: SERTRALINE 50 MG (ZOLOFT) TABLET PO SCH (08:03)
[2017-06-08] MEDS: RASAGILINE 1 MG PO SCH (08:09)
--- NOTE | 2017-06-08 09:01 | PM & R (SOAP) Progress Note ---
Subjective Time Seen by Provider: 08:10 Subjective/Events-last exam Patient was seen in her room this AM Patient min assist for transfers.Adusting well to unit Review of Systems Neurological: Weakness Objective Exam Last Set of Vital Signs Vital Signs Date Time Temp Pulse Resp B/P (MAP) Pulse Ox O2 Delivery O2 Flow Rate FiO2 06/08/17 08:01 65 107/68 (81) 06/08/17 06:49 Nasal Cannula 2.00 06/08/17 05:14 97.4 20 97 Capillary Refill : Less Than 3 Seconds I&O Intake and Output 06/08/17 00:00 Intake Total 620 ml Balance 620 ml Intake Oral 620 ml # Voids 3 # Bowel Movements 1 Daily Weight Change No General: Alert, Oriented X3, Cooperative, No Acute Distress HEENT: Atraumatic, PERRLA, EOMI, Mucous Memb Moist/Webb Neck: Supple, No JVD Lungs: Clear to Auscultation Heart: Regular Rate Abdomen: Normal Bowel Sounds, Soft, No Tenderness Extremities: No Edema Neuro: Other (genralized weakness slow gait dysphonia) Results Lab Laboratory Tests 06/08/17 05:48: White Blood Count 5.7, Red Blood Count 3.95L, Hemoglobin 12.2, Hematocrit 38, Mean Corpuscular Volume 95, Mean Corpuscular Hemoglobin 31, Mean Corpuscular Hemoglobin Concent 32, Red Cell Distribution Width 12.7, Platelet Count 137, Mean Platelet Volume 10.1, Sodium Level 138, Potassium Level 4.4, Chloride Level 102, Carbon Dioxide Level 27, Anion Gap 9, Blood Urea Nitrogen 18, Creatinine 0.74, Estimat Glomerular Filtration Rate > 60, BUN/Creatinine Ratio 24, Glucose Level 96, Calcium Level 9.4, Total Bilirubin 0.8, Aspartate Amino Transf (AST/SGOT) 29, Alanine Aminotransferase (ALT/SGPT) 11, Alkaline Phosphatase 67, Total Protein 5.5L, Albumin 3.6 Assessment/Plan Assessment Progressive Park D with gait imbalance and dysphonia HTN Recent falls Plan Continue PT/OT/ST Team Conference later today See report for full functional update and POC and ELOS F/U with ELOISE Shaver MD Jun 08, 2017 09:01
--- NOTE | 2017-06-08 09:22 | Speech Therapy Daily Note ---
Speech Daily Progress Note Subjective Date Seen by Provider: Jun 08, 2017 Time Seen by Provider: 08:20 The patient was seated upright in recliner upon entrance. The patient greeted the clinician and was agreeable to participation in the voice treatment session. To note, the patient remained pleasant and extremely cooperative throughout the session. Objective Due to the patient's known diagnosis of Parkinson's Disease and her evaluation with speech pathology which revealed moderate hypofunctional dysphonia, [facility] Voice Therapy (LSVT) will be implemented at this time. Intensity levels were measured on this date, as well as, functional phrases were collected with the following results: Sustained /ah/ dB: 61.6 dB Loud sustained /ah/ dB: 67.1 dB Functional Sentences: 58.5 dB Comfortable Conversation: 59.4 dB Sustained /ah/ length: 8:33 seconds Loud sustained /ah/ length: 5:16 seconds Functional Phrases: 1. Would you like a cup of coffee? 2. Would you get the phone for me? 3. Would you get me another cup, please? 4. Would you answer the door, please? 5. Would you hang the clothes in the dryer, please? 6. Are we having company tonight? 7. Can I get a puppy? 8. What's for dinner tonight? Assessment Assessment Current Status: Good Progress Treatment Plan Continue Plan of Care Communication Comprehension: 5 Expression: 4 (Voice intensity, only.) Social Cognition Social Interaction: 6 Problem Solvin Memory: 6 Speech Short Term Goals Short Term Goals Short Term Goals 1. The patient will display a sustained /ah/ at comfortable volume levels for 12 seconds and at loud volume levels with 8 seconds. 2. The patient will demonstrate diaphragmatic breathing with 80% accuracy and mild clinician verbal cueing. 3. The patient will complete functional phrases at 65 dB, loud /ah/ at 70 dB, and conversation at 65 dB with mild clinician verbal cueing. Time Frame-STG: One Week Speech [facility] Goals [facility] Goals 1. The patient will display improved conversational volumes for increased safety and function. Time Frame: Two Weeks Speech-Plan Treatment Plan Speech Therapy Treatment Plan: Continue Plan of Care Continue skilled speech pathology to target functional communication. Treatment Duration: Jun 21, 2017 Frequency: At least 5 of 7 days/Wk (IRF) Estimated Hrs Per Day: .5 hour per day Rehab Potential: Good Safety Risks/Education Teaching Recipient: Patient Teaching Methods: Discussion Response to Teaching: Verbalize Understanding Education Topics Provided: LSVT Plan of Care Time Speech Therapy Time In: 08:20 Speech Therapy Time Out: 08:50 Total Billed Time: 30 Billed Treatment Time 1NATH[address] ST Jun 08, 2017 09:22
--- NOTE | 2017-06-08 11:14 | Occupational Ther Daily Note ---
OT Current Status-Daily Note Subjective No pain reported. Appearance Pt. in bed. Agrees to work with OT. Mental Status/Objective Patient Orientation: Person, Place, Time, Situation Functional [place] Measure 0=Not Assessed/NA 4=Minimal Assistance 1=Total Assistance 5=Supervision or Setup 2=Maximal Assistance 6=Modified [place] 3=Moderate Assistance 7=Complete [place] ADL-Treatment Functional [place] Measure 0=Not Assessed/NA 4=Minimal Assistance 1=Total Assistance 5=Supervision or Setup 2=Maximal Assistance 6=Modified [place] 3=Moderate Assistance 7=Complete IndependenceIRFPAI Quality Coding Scale 6 Independent with activity with or without an assistive device 5 Patient requires set up or clean up by helper. Patient completes activity by themselves 4 Supervision or touching assist (CGA). Flynn provide cues , steadying assist 3 The helper provides less than half the effort to complete the activity 2 The helper provides more than half the effort to complete the activity 1 Dependent. The helper does all the effort to complete an activity 7 Patient refused to complete or attempt activity 9 The patient did not perform the activity before the current illness or injury 88 Not attempted due to Medical conditions or safety concerns Grooming (FIM): 4 (CGA in stance to brush her teeth and comb most of hair. Required min assist to comb hair in back.) Oral Hygiene (QC): 4 Bathing (FIM): 4 (CGA in stance for balance. Pt. able to wash all parts with increased time needed.) Shower/Bathe Self (QC): 4 Upper Body (FIM): 4 (Pt. able to don kirill and shirt, with assist to pull both down in back.) Upper Body Dressing (QC): 4 Lower Body Dressing (FIM): 4 (Min assist in stance to pull underwear and pants up. Pt. able to get both donned around feet with increased time. Pt. able to doff/don slipper socks.) Lower Body Dressing (QC): 4 On/Off Footwear (QC): 4 Toileting (FIM): 5 Toileting Hygiene (QC): 4 Transfers (B, C, W/C) (FIM): 4 Toilet/Commode Transfer (FIM): 4 Toilet Transfer (QC): 4 Shower Transfer(FIM): 4 Education OT Patient Education: Correct positioning, Modified ADL techniques, Progress toward Goal/Update tx plan, Purpose of tx/functional activities, Reviewed precautions, Rehab process, Transfer techniques Teaching Recipient: Patient Teaching Methods: Demonstration, Discussion Response to Teaching: Verbalize Understanding, Return Demonstration OT Short Term Goals Short Term Goals Time Frame: Jun 14, 2017 Eating(FIM): 5 Grooming(FIM): 5 Bathing(FIM): 5 Upper Body Dressing(FIM): 4 Lower Body Dressing(FIM): 5 Toileting(FIM): 4 Transfers (B,C,W/C) (FIM): 5 Toilet/Commode Transfer(FIM): 5 Shower Transfer(FIM): 4 Additional Short Term Goals: 1-Demonstrate ADL Tasks, 2-Verbalize Understanding , 3-ImproveStrength/Azucena 1=Demonstrate adherence to instructed precautions during ADL tasks. 2=Patient will verbalize/demonstrate understanding of assistive devices/ modifications for ADL. 3=Patient will improve strength/tolerance for activity to enable patient to perform ADL's. OT Jail Goals Jail Goals Time Frame: Jun 21, 2017 Eating (FIM): 6 Eating (QC): 6 Groomin Oral Hygiene (QC): 6 Bathing(FIM): 5 Shower/Bathe Self (QC): 4 Upper Body Dressing(FIM): 5 Upper Body Dressing (QC): 4 Lower Body Dressing(FIM): 5 Lower Body Dressing (QC): 4 On/Off Footwear (QC): 4 Toileting(FIM): 6 Toileting Hygiene (QC): 6 Transfers (B,C,W/C) (FIM): 6 Toilet/Commode Transfer(FIM): 6 Toilet/Commode Transfer (QC): 6 Shower Transfer(FIM): 5 Additional Goals: 1-Demonstrate ADL Tasks, 2-Verbalize Understanding, 3- ImproveStrength/Azucena 1=Demonstrate adherence to instructed precautions during ADL tasks. 2=Patient will verbalize/demonstrate understanding of assistive devices/ modifications for ADL. 3=Patient will improve strength/tolerance for activity to enable patient to perform ADL's. OT Education/Plan Problem List/Assessment Assessment: Decreased Activ Tolerance, Impaired Funct Balance, Impaired I ADL's , Impaired Self-Care Skills Discharge Recommendations Plan/Recommendations: Continue POC Therapy D/C Recommendations: Home w/ Family Support Treatment Plan/Plan of Care Treatment,Training & Education: Yes Patient would benefit from OT for education, treatment and training to promote independence in ADL's, mobility, safety and/or upper extremity function for ADL' s. Plan of Care: ADL Retraining, Functional Mobility, Group Exercise/Act as Ind, UE Funct Exercise/Act Treatment Duration: Jun 21, 2017 Frequency: At least 5 of 7 days/Wk (IRF) Estimated Hrs Per Day: 1.5 hours per day Agreement: Yes Rehab Potential: Good Time/GCodes Start Time: 10:00 Stop Time: 11:00 Total Time Billed (hr/min): 60 Billed Treatment Time 1, ADL x 4 ZACHERY WHITAKER OT Jun 08, 2017 11:14
--- NOTE | 2017-06-08 11:20 | Physical Therapy Daily Note ---
PT Daily Note-Current Subjective Pt sitting in recliner upon arrival. Pt agrees to PT. Pain Location: No Pain Reported Mental Status Patient Orientation: Person, Place, Situation Transfers Functional [place] Measure 0=Not Assessed/NA 4=Minimal Assistance 1=Total Assistance 5=Supervision or Setup 2=Maximal Assistance 6=Modified [place] 3=Moderate Assistance 7=Complete IndependenceIRFPAI Quality Coding Scale 6 Independent with activity with or without an assistive device 5 Patient requires set up or clean up by helper. Patient completes activity by themselves 4 Supervision or touching assist (CGA). [place] provide cues , steadying assist 3 The helper provides less than half the effort to complete the activity 2 The helper provides more than half the effort to complete the activity 1 Dependent. The helper does all the effort to complete an activity 7 Patient refused to complete or attempt activity 9 The patient did not perform the activity before the current illness or injury 88 Not attempted due to Medical conditions or safety concerns Scootin Sit to/from Stand: 5 Sit to Stand (QC): 5 Weight Bearing Right Lower Extremity: Right Full Weight Bearing Left Lower Extremity: Left Full Weight Bearing Gait Training Does the Patient Walk?: Yes Distance (FIM): 3=150 ft Distance: 150' Walk 10 feet (QC): 5 Walk 50 ft with 2 Turns(QC): 5 Walk 150 ft (QC): 5 Gait Level of Assist: 5 Gait Persons Needed: 1 Gait Assistive Device: Walker 4 Wheeled Pt has slow but steady remedios, no LOB. Pt fatigues easily and needs rest break to recover. Wheelchair Training Does the Pt Use a Wheelchair?: No Exercises NuStep Minutes: 15 NuStep Workload: 3 Treatments Pt transfers from recliner to standing using 4WW at SBA. Pt ambulates in hallway using 4WW at close SBA for safety. Pt uses NuStep for 15m at Workload 3. Pt ambulates back towards room to rest Supine in bed at end of tx with all needs met. Assessment Current Status: Good Progress Pt's strength and activity tolerance has improved as has pt's balance. PT Short Term Goals Short Term Goals Time Frame: Jun 14, 2017 Transfers (B,C,W/C) (FIM): 5 Gait (FIM): 5 Gait Distance Comment: 300' Gait Level of Assist: 5 Gait Assistive Device: Walker 4 Wheeled PT Laundry Pricing Clerk Goals Laundry Pricing Clerk Goals PT Usp Goals Time Frame: Jun 28, 2017 Transfers (B,C,W/C) (FIM): 6 Sit to Lying (QC): 6 Lying-Sitting on Side/Bed(QC): 6 Sit to Stand (QC): 6 Rollin Roll Left to Right (QC): 6 Chair/Ilk-bv-Hujbk Xfer(QC): 6 Car Transfer (QC): 6 Gait (FIM): 6 Distance: 400' Walk 10 feet (QC): 6 Walk 10ft-Uneven Surface(QC): 6 Walk 50ft with 2 Turns (QC): 6 Walk 150 ft (QC): 6 Gait Level of Assist: 6 Gait Assistive Device: Walker 4 Wheeled Stairs (FIM): 5 # of Steps: 12 1 Step (curb) (QC): 4 4 Steps (QC): 4 12 Steps (QC): 4 Stairs Level Of Assist: 5 Picking up an Object (QC): 4 PT Plan Problem List Problem List: Activity Tolerance, Functional Strength, Safety, Gait Treatment/Plan Treatment Plan: Continue Plan of Care Treatment Plan: Bed Mobility, Education, Functional Activity Azucena, Functional Strength, Group Therapy, Gait, Safety, Therapeutic Exercise, Transfers Treatment Duration: Jun 28, 2017 Frequency: At least 5 of 7 days/Wk (IRF) Estimated Hrs Per Day: 1.5 hours per day Patient and/or Family Agrees t: Yes Safety Risks/Education Patient Education: Gait Training, Transfer Techniques, Correct Positioning, Safety Issues Teaching Recipient: Patient Teaching Methods: Discussion Response to Teaching: Verbalize Understanding Time/GCodes Time In: 900 Time Out: 945 Total Billed Treatment Time: 45 Total Billed Treatment 1, FA (15m), GT (15m) & EX (15m) ALEXANDRA SALAMANCA OTHER SALES SUPPORT WORKER Jun 08, 2017 11:20
[2017-06-08] MEDS: ALPRAZolam 0.25 MG (XANAX) TAB PO PRN (12:24)
--- NOTE | 2017-06-08 15:04 | Therapy Group Daily Note ---
Therapy Daily Group Note Exercises LE Seated Exercise, UE Exercise Other/Notes Pt ambulated with FWW to therapy gym for OT/PT group. Group consisted of introductions (name, place living, favorite place), socialization, seated UE/LE exercises and peer interaction activity with Jeopardy format. Pt was able to introduce self and actively listened to peers while they introduced themselves. Pt contributed to surrounding conversations and interacted appropriately with peers. Pt was able to answer trivia questions during peer interaction activity. Light resistance theraband exercises completed for UE/LE. After therapy, pt ambulated with FWW to room. All needs met in room. Start Time: 13:05 Stop Time: 14:10 Total Billed Treatment Time: 65 Total Billed Treatment 1-GRP NATANAEL BALLESTEROS Jun 08, 2017 15:04
[2017-06-08 17:26] VITALS: BP 92/57
[2017-06-09 05:10] VITALS: BP 109/73
[2017-06-09] MEDS: PANTOPRAZOLE 20 MG TABLET (PROTONIX) PO SCH (05:50)
[2017-06-09] MEDS: PRAMIPEXOLE 0.125 MG (MIRAPEX) TABLET PO SCH ×2 (08:58→21:23)
[2017-06-09] MEDS: SINEMET 25/100 (CARBIDOPA/LEVODOPA) TAB PO SCH ×3 (08:58→21:21)
[2017-06-09] MEDS: SERTRALINE 50 MG (ZOLOFT) TABLET PO SCH (08:59)
[2017-06-09] MEDS: ASPIRIN E.C. 81 MG (ECOTRIN) TAB PO SCH (08:59)
[2017-06-09] MEDS: meTOprolol TARTRATE 25 MG (LOPRESSOR) TABLET PO SCH ×2 (08:59→21:21)
[2017-06-09] MEDS: SPIRONOLACTONE 25 MG (ALDACTONE) TAB PO SCH (08:59)
[2017-06-09] MEDS: lisINopril 5 MG (PRINIVIL) TABLET PO SCH (08:59)
[2017-06-09] MEDS: RASAGILINE 1 MG PO SCH (09:02)
--- NOTE | 2017-06-09 09:13 | PM & R (SOAP) Progress Note ---
Subjective Time Seen by Provider: 08:15 Subjective/Events-last exam Patient was seen in her room this AM Progressing well with therapies Patient SBA for transfers Objective Exam Last Set of Vital Signs Vital Signs Date Time Temp Pulse Resp B/P (MAP) Pulse Ox O2 Delivery O2 Flow Rate FiO2 06/09/17 05:10 98.6 86 20 109/73 (85) 98 Room Air 06/08/17 20:39 2.00 Capillary Refill : Less Than 3 Seconds I&O Intake and Output 06/09/17 00:00 Intake Total 1250 ml Balance 1250 ml Intake Oral 1250 ml # Voids 8 # Bowel Movements 1 General: Alert, Oriented X3, Cooperative, No Acute Distress HEENT: Atraumatic, PERRLA, EOMI, Mucous Memb Moist/[place] Neck: Supple, No JVD Lungs: Clear to Auscultation Heart: Regular Rate Abdomen: Normal Bowel Sounds, Soft, No Tenderness Extremities: No Edema Neuro: Other (genralized weakness slow gait dysphonia) Results Lab Laboratory Tests 06/08/17 05:48: White Blood Count 5.7, Red Blood Count 3.95L, Hemoglobin 12.2, Hematocrit 38, Mean Corpuscular Volume 95, Mean Corpuscular Hemoglobin 31, Mean Corpuscular Hemoglobin Concent 32, Red Cell Distribution Width 12.7, Platelet Count 137, Mean Platelet Volume 10.1, Sodium Level 138, Potassium Level 4.4, Chloride Level 102, Carbon Dioxide Level 27, Anion Gap 9, Blood Urea Nitrogen 18, Creatinine 0.74, Estimat Glomerular Filtration Rate > 60, BUN/Creatinine Ratio 24, Glucose Level 96, Calcium Level 9.4, Total Bilirubin 0.8, Aspartate Amino Transf (AST/SGOT) 29, Alanine Aminotransferase (ALT/SGPT) 11, Alkaline Phosphatase 67, Total Protein 5.5L, Albumin 3.6 Assessment/Plan Assessment Progressive [place] D with gait imbalance and dysphonia HTN Recent falls Plan Continue PT/OT/ST Team Conference held yesterday See report for full functional update and POC and ELOS F/U with DR Bonds PRNatalie Discharge set for home 06/13/17 ELOISE STARKS MD Jun 09, 2017 09:13
--- NOTE | 2017-06-09 09:56 | Physical Therapy Daily Note ---
PT Daily Note-Current Subjective Pt in restroom upon arrival. Pt agrees to PT. Pt reports feeling stronger and excited to discharge on Tuesday. Pain Location: No Pain Reported Mental Status Patient Orientation: Person, Place, Time, Situation Transfers Functional [place] Measure 0=Not Assessed/NA 4=Minimal Assistance 1=Total Assistance 5=Supervision or Setup 2=Maximal Assistance 6=Modified [place] 3=Moderate Assistance 7=Complete IndependenceIRFPAI Quality Coding Scale 6 Independent with activity with or without an assistive device 5 Patient requires set up or clean up by helper. Patient completes activity by themselves 4 Supervision or touching assist (CGA). [place] provide cues , steadying assist 3 The helper provides less than half the effort to complete the activity 2 The helper provides more than half the effort to complete the activity 1 Dependent. The helper does all the effort to complete an activity 7 Patient refused to complete or attempt activity 9 The patient did not perform the activity before the current illness or injury 88 Not attempted due to Medical conditions or safety concerns Scootin Sit to/from Stand: 6 Sit to Stand (QC): 6 Weight Bearing Right Lower Extremity: Right Full Weight Bearing Left Lower Extremity: Left Full Weight Bearing Gait Training Does the Patient Walk?: Yes Distance (FIM): 3=150 ft Distance: 150' Walk 10 feet (QC): 5 Walk 50 ft with 2 Turns(QC): 5 Walk 150 ft (QC): 5 Gait Level of Assist: 5 Gait Persons Needed: 1 Gait Assistive Device: Walker 4 Wheeled Pt walks with normalized gait, slow remedios but no LOB. CAFE ASSISTANT checked position of 4WW and pt's 4WW is at acceptable/safer position, no change needed. Wheelchair Training Does the Pt Use a Wheelchair?: No Exercises Standin way Ex=Flex, Abd, Ext, Marching Standing Reps: 20 NuStep Minutes: 15 NuStep Workload: 4 Treatments Pt transfers from toilet to standing using 4WW at Mod I. Pt transfers at Mod I and ambulates in hallway using 4WW at SBA to check positioning of walker. Pt uses NuStep for 15m at Workload 4 followed by Standing Ex at //bars at SBA. Pt returns to room to rest in recliner until OT arrives. Pt has all needs met at end of tx. Assessment Current Status: Good Progress Pt is improving with safety and independence of transfers and mobility. PT Short Term Goals Short Term Goals Time Frame: Jun 14, 2017 Transfers (B,C,W/C) (FIM): 5 Gait (FIM): 5 Gait Distance Comment: 300' Gait Level of Assist: 5 Gait Assistive Device: Walker 4 Wheeled PT Volunteer Patient Representative Goals Long-Term Goals PT Volunteer Patient Representative Goals Time Frame: Jun 28, 2017 Transfers (B,C,W/C) (FIM): 6 Sit to Lying (QC): 6 Lying-Sitting on Side/Bed(QC): 6 Sit to Stand (QC): 6 Rollin Roll Left to Right (QC): 6 Chair/Jml-je-Beozo Xfer(QC): 6 Car Transfer (QC): 6 Gait (FIM): 6 Distance: 400' Walk 10 feet (QC): 6 Walk 10ft-Uneven Surface(QC): 6 Walk 50ft with 2 Turns (QC): 6 Walk 150 ft (QC): 6 Gait Level of Assist: 6 Gait Assistive Device: Walker 4 Wheeled Stairs (FIM): 5 # of Steps: 12 1 Step (curb) (QC): 4 4 Steps (QC): 4 12 Steps (QC): 4 Stairs Level Of Assist: 5 Picking up an Object (QC): 4 PT Plan Problem List Problem List: Activity Tolerance Treatment/Plan Treatment Plan: Continue Plan of Care Treatment Plan: Bed Mobility, Education, Functional Activity Azucena, Functional Strength, Group Therapy, Gait, Safety, Therapeutic Exercise, Transfers Treatment Duration: Jun 28, 2017 Frequency: At least 5 of 7 days/Wk (IRF) Estimated Hrs Per Day: 1.5 hours per day Patient and/or Family Agrees t: Yes Safety Risks/Education Patient Education: Gait Training, Transfer Techniques, Correct Positioning, Safety Issues Teaching Recipient: Patient Teaching Methods: Discussion Response to Teaching: Verbalize Understanding Time/GCodes Time In: 900 Time Out: 945 Total Billed Treatment Time: 45 Total Billed Treatment 1, GT (15m) & EX x2 (30m) ALEXANDRA SALAMANCA CAFE ASSISTANT Jun 09, 2017 09:55
--- NOTE | 2017-06-09 10:11 | Speech Therapy Daily Note ---
Speech Daily Progress Note Subjective Date Seen by Provider: Jun 09, 2017 Time Seen by Provider: 08:15 The patient was laying in bed upon entrance. The clinician assisted the patient to her recliner next to her bed. The patient greeted the clinician appropriately and was agreeable to participation in the voice treatment session. Objective [facility] ([facility]) treatment was initiated on this date with the following results: - Duration of Sustained "ah": On average, the patient sustained an "ah" loudly for 9 seconds with moderate clinician verbal prompting. - Intensity of sustained 'ah': On average, the patient's intensity for the sustained 'ah' was 65 dB SPL. - Intensity of functional phrases: On average, the patient's intensity levels for functional phrases was 64 dB SPL with moderate clinician verbal prompting. The patient was encouraged to "Think Loud!" and use her loud voice throughout the day. Additionally, diaphragmatic breathing was reviewed, practiced, and demonstrated with fair to good accuracy with the patient. The patient required intermittent cueing to continue diaphragmatic breathing, as the patient returned to chest breathing when she became fatigued. Assessment Assessment Current Status: Good Progress Treatment Plan Continue Plan of Care Communication Comprehension: 5 Expression: 4 (Voice intensity, only.) Social Cognition Social Interaction: 6 Problem Solvin Memory: 6 Speech Short Term Goals Short Term Goals Short Term Goals 1. The patient will display a sustained /ah/ at comfortable volume levels for 12 seconds and at loud volume levels with 8 seconds. 2. The patient will demonstrate diaphragmatic breathing with 80% accuracy and mild clinician verbal cueing. 3. The patient will complete functional phrases at 65 dB, loud /ah/ at 70 dB, and conversation at 65 dB with mild clinician verbal cueing. Time Frame-STG: One Week Speech Survey Crew Chief Goals Survey Crew Chief Goals 1. The patient will display improved conversational volumes for increased safety and function. Time Frame: Two Weeks Speech-Plan Treatment Plan Speech Therapy Treatment Plan: Continue Plan of Care Continue skilled speech pathology to target improved vocal intensity. Treatment Duration: Jun 21, 2017 Frequency: At least 5 of 7 days/Wk (IRF) Estimated Hrs Per Day: .5 hour per day Rehab Potential: Good Safety Risks/Education Teaching Recipient: Patient Teaching Methods: Demonstration, Handout, Discussion Response to Teaching: Verbalize Understanding, Return Demonstration Education Topics Provided: "Think Loud!" Techniques, Functional Phrases Time Speech Therapy Time In: 08:15 Speech Therapy Time Out: 08:45 Total Billed Time: 30 Billed Treatment Time 1, PAIGE LEAVITT Jun 09, 2017 10:11
--- NOTE | 2017-06-09 10:52 | Occupational Ther Daily Note ---
OT Current Status-Daily Note Subjective No pain reported. Appearance Pt. up in chair. Declines showering but agrees to dress. Mental Status/Objective Patient Orientation: Person, Place Functional [place] Measure 0=Not Assessed/NA 4=Minimal Assistance 1=Total Assistance 5=Supervision or Setup 2=Maximal Assistance 6=Modified [place] 3=Moderate Assistance 7=Complete [place] ADL-Treatment Functional [place] Measure 0=Not Assessed/NA 4=Minimal Assistance 1=Total Assistance 5=Supervision or Setup 2=Maximal Assistance 6=Modified [place] 3=Moderate Assistance 7=Complete IndependenceIRFPAI Quality Coding Scale 6 Independent with activity with or without an assistive device 5 Patient requires set up or clean up by helper. Patient completes activity by themselves 4 Supervision or touching assist (CGA). [place] provide cues , steadying assist 3 The helper provides less than half the effort to complete the activity 2 The helper provides more than half the effort to complete the activity 1 Dependent. The helper does all the effort to complete an activity 7 Patient refused to complete or attempt activity 9 The patient did not perform the activity before the current illness or injury 88 Not attempted due to Medical conditions or safety concerns Grooming (FIM): 5 (SBA at sink to stand and brush teeth and hair. Increased time required.) Oral Hygiene (QC): 4 Upper Body (FIM): 5 (Set up to don camisole and shirt. Pt. requires increased time.) Upper Body Dressing (QC): 4 Lower Body Dressing (FIM): 4 (CGA in stance to pull pants over hips. Pt. does require overall increased time.) Lower Body Dressing (QC): 4 On/Off Footwear (QC): 4 Toileting (FIM): 4 (CGA in stance to pull up pants and cleanse self.) Toileting Hygiene (QC): 4 Transfers (B, C, W/C) (FIM): 4 (CGA during ambulation at times. Pt. reports that she is fatigued.) Toilet/Commode Transfer (FIM): 4 Toilet Transfer (QC): 4 Other Treatment After ADLS in room, pt. agreed to ambulate with walker around therapy floor. Pt. was encouraged to take rest breaks as needed. However, pt. felt that she didn't need this. Pt. slow in nature and requires increased time overall. All needs met back in room in chair. Education OT Patient Education: Correct positioning, Modified ADL techniques, Progress toward Goal/Update tx plan, Purpose of tx/functional activities, Reviewed precautions, Rehab process, Transfer techniques Teaching Recipient: Patient Teaching Methods: Demonstration, Discussion Response to Teaching: Verbalize Understanding, Return Demonstration OT Short Term Goals Short Term Goals Time Frame: Jun 14, 2017 Eating(FIM): 5 Grooming(FIM): 5 Bathing(FIM): 5 Upper Body Dressing(FIM): 4 Lower Body Dressing(FIM): 5 Toileting(FIM): 4 Transfers (B,C,W/C) (FIM): 5 Toilet/Commode Transfer(FIM): 5 Shower Transfer(FIM): 4 Additional Short Term Goals: 1-Demonstrate ADL Tasks, 2-Verbalize Understanding , 3-ImproveStrength/Azucena 1=Demonstrate adherence to instructed precautions during ADL tasks. 2=Patient will verbalize/demonstrate understanding of assistive devices/ modifications for ADL. 3=Patient will improve strength/tolerance for activity to enable patient to perform ADL's. OT Prison Goals Music Minister Goals Time Frame: Jun 21, 2017 Eating (FIM): 6 Eating (QC): 6 Groomin Oral Hygiene (QC): 6 Bathing(FIM): 5 Shower/Bathe Self (QC): 4 Upper Body Dressing(FIM): 5 Upper Body Dressing (QC): 4 Lower Body Dressing(FIM): 5 Lower Body Dressing (QC): 4 On/Off Footwear (QC): 4 Toileting(FIM): 6 Toileting Hygiene (QC): 6 Transfers (B,C,W/C) (FIM): 6 Toilet/Commode Transfer(FIM): 6 Toilet/Commode Transfer (QC): 6 Shower Transfer(FIM): 5 Additional Goals: 1-Demonstrate ADL Tasks, 2-Verbalize Understanding, 3- ImproveStrength/Azucena 1=Demonstrate adherence to instructed precautions during ADL tasks. 2=Patient will verbalize/demonstrate understanding of assistive devices/ modifications for ADL. 3=Patient will improve strength/tolerance for activity to enable patient to perform ADL's. OT Education/Plan Problem List/Assessment Assessment: Decreased Activ Tolerance, Impaired I ADL's, Impaired Self-Care Skills Discharge Recommendations Plan/Recommendations: Continue POC Therapy D/C Recommendations: Home w/ Family Support Treatment Plan/Plan of Care Treatment,Training & Education: Yes Patient would benefit from OT for education, treatment and training to promote independence in ADL's, mobility, safety and/or upper extremity function for ADL' s. Plan of Care: ADL Retraining, Functional Mobility, Group Exercise/Act as Ind, UE Funct Exercise/Act Treatment Duration: Jun 21, 2017 Frequency: At least 5 of 7 days/Wk (IRF) Estimated Hrs Per Day: 1.5 hours per day Agreement: Yes Rehab Potential: Good Time/GCodes Start Time: 09:45 Stop Time: 10:45 Total Time Billed (hr/min): 60 Billed Treatment Time 1, ADL x 45minutes, FA x 15minutes ZACHERY WHITAKER OT Jun 09, 2017 10:52
[2017-06-09] MEDS: ALPRAZolam 0.25 MG (XANAX) TAB PO PRN (12:49)
--- NOTE | 2017-06-09 14:32 | Physical Therapy Daily Note ---
PT Daily Note-Current Subjective Pt sitting in recliner visiting with a friend upon arrival. Pt agrees to PT. Pain Location: No Pain Reported Mental Status Patient Orientation: Person, Place, Situation Transfers Functional [place] Measure 0=Not Assessed/NA 4=Minimal Assistance 1=Total Assistance 5=Supervision or Setup 2=Maximal Assistance 6=Modified [place] 3=Moderate Assistance 7=Complete IndependenceIRFPAI Quality Coding Scale 6 Independent with activity with or without an assistive device 5 Patient requires set up or clean up by helper. Patient completes activity by themselves 4 Supervision or touching assist (CGA). [place] provide cues , steadying assist 3 The helper provides less than half the effort to complete the activity 2 The helper provides more than half the effort to complete the activity 1 Dependent. The helper does all the effort to complete an activity 7 Patient refused to complete or attempt activity 9 The patient did not perform the activity before the current illness or injury 88 Not attempted due to Medical conditions or safety concerns Scootin Sit to/from Stand: 6 Sit to Stand (QC): 6 Weight Bearing Right Lower Extremity: Right Full Weight Bearing Left Lower Extremity: Left Full Weight Bearing Gait Training Does the Patient Walk?: Yes Distance (FIM): 3=150 ft Distance: 150' Walk 10 feet (QC): 5 Walk 50 ft with 2 Turns(QC): 5 Walk 150 ft (QC): 5 Gait Level of Assist: 5 Gait Persons Needed: 1 Gait Assistive Device: Walker 4 Wheeled Pt walks with slow remedios but otherwise normalized gait, no LOB. Pt needs occasional VC to stay closer to 4WW. Wheelchair Training Does the Pt Use a Wheelchair?: No Treatments Pt transfers from recliner to standing using 4WW at Mod I. Pt uses restroom then stands at sink to wash hands. Pt ambulates in hallway using 4WW at SBA. Pt returns to sp's room (next door) to visit at end of tx with all needs met. Assessment Current Status: Good Progress Pt fatigues easier in afternoon tx but has made improvements with safety & independence of transfers & mobility. PT Short Term Goals Short Term Goals Time Frame: Jun 14, 2017 Transfers (B,C,W/C) (FIM): 5 Gait (FIM): 5 Gait Distance Comment: 300' Gait Level of Assist: 5 Gait Assistive Device: Walker 4 Wheeled PT Senior Care Goals Wheel And Pinion Inspector Goals PT Senior Care Goals Time Frame: Jun 28, 2017 Transfers (B,C,W/C) (FIM): 6 Sit to Lying (QC): 6 Lying-Sitting on Side/Bed(QC): 6 Sit to Stand (QC): 6 Rollin Roll Left to Right (QC): 6 Chair/Hcy-hh-Awgir Xfer(QC): 6 Car Transfer (QC): 6 Gait (FIM): 6 Distance: 400' Walk 10 feet (QC): 6 Walk 10ft-Uneven Surface(QC): 6 Walk 50ft with 2 Turns (QC): 6 Walk 150 ft (QC): 6 Gait Level of Assist: 6 Gait Assistive Device: Walker 4 Wheeled Stairs (FIM): 5 # of Steps: 12 1 Step (curb) (QC): 4 4 Steps (QC): 4 12 Steps (QC): 4 Stairs Level Of Assist: 5 Picking up an Object (QC): 4 PT Plan Problem List Problem List: Activity Tolerance, Safety Treatment/Plan Treatment Plan: Continue Plan of Care Treatment Plan: Bed Mobility, Education, Functional Activity Azucena, Functional Strength, Group Therapy, Gait, Safety, Therapeutic Exercise, Transfers Treatment Duration: Jun 28, 2017 Frequency: At least 5 of 7 days/Wk (IRF) Estimated Hrs Per Day: 1.5 hours per day Patient and/or Family Agrees t: Yes Safety Risks/Education Patient Education: Gait Training, Transfer Techniques, Correct Positioning, Safety Issues Teaching Recipient: Patient Teaching Methods: Discussion Response to Teaching: Verbalize Understanding Time/GCodes Time In: 1330 Time Out: 1400 Total Billed Treatment Time: 30 Total Billed Treatment 1, FA (15m) & GT (15m) ALEXANDRA SALAMANCA PTA Jun 09, 2017 14:32
--- NOTE | 2017-06-09 15:59 | Individualized Plan of Care ---
Individualized Plan of Care Rehab Nursing IPOC Order Admission Date Jun 07, 2017 at 08:00 Current Orders Orders Patient Visit (06/07/17 ) Speech Sound Lang Comp (06/07/17 ) Admission Order(Inpt,Obs,Sdc) (06/07/17 10:14) Vital Signs: Routine (Ord) 08,16,00 (06/07/17 10:14) Sequential Compression Device 08,20 (06/07/17 10:14) Weft Straightener-Inpt Rehab (06/07/17 10:14) Rehab Nursing Orders-Ipoc (06/07/17 10:14) Physical Therapy Rehab Orders (06/07/17 10:14) Occupational Therapy Rehab Ord (06/07/17 10:14) Speech Therapy Rehab Orders (06/07/17 10:14) General/Regular (06/07/17 Lunch) Turn And Reposition Q2HR (06/07/17 10:14) Intake & Output 06,14,22 (06/07/17 10:14) Precautions (Aru) (06/07/17 10:14) Weekly Weight (Lbs) WEEK (06/07/17 10:14) Consult Physician (06/07/17 10:20) Alprazolam Tablet (Xanax Tablet) (06/07/17 10:30) Pramipexole Tablet (Mirapex Tablet) (06/07/17 21:00) Pantoprazole Tablet (Protonix Tablet) (06/08/17 07:00) Metoprolol Tartrate (Ir) Tab (Lopressor (06/07/17 21:00) Lisinopril Tablet (Zestril Tablet) (06/08/17 09:00) Sertraline Tablet (Zoloft Tablet) (06/08/17 09:00) Pramipexole Tablet (Mirapex Tablet) (06/07/17 21:00) Spironolactone Tablet (Aldactone Tablet) (06/08/17 09:00) Aspirin Enteric Coated Tablet (Ecotrin T (06/08/17 09:00) Code/Resuscitation (06/07/17 10:31) Pharmacy Communication (Pharmacy Communi (06/07/17 10:45) Pramipexole Tablet (Mirapex Tablet) (06/07/17 21:00) Carbidopa/Levodopa 25/100 (Sinemet 25/10 (06/07/17 21:00) Carbidopa/Levodopa 25/100 (Sinemet 25/10 (06/07/17 12:00) Patient's Own Med(Rx Use Only) (Patient' (06/07/17 11:19) 24 Hour Oxygen Rt-Rfs (06/07/17 13:40) Furosemide Tablet (Lasix Tablet) (06/07/17 13:45) Patient Visit (06/07/17 ) Pt Eval Moderate Complexity (06/07/17 ) Gait Training, Ea 15 Min (06/07/17 ) Exercise Therap, Ea 15 Min (06/07/17 ) Functional Activities, Ea 15 (06/07/17 ) Cbc No Diff (06/08/17 05:00) Comprehensive Metabolic Panel (06/08/17 05:00) Alprazolam Tablet (Xanax Tablet) (06/07/17 20:45) Patient Visit (06/08/17 ) Treat. Speech/Lang/Voice (06/08/17 ) Patient Visit (06/08/17 ) Functional Activities, Ea 15 (06/08/17 ) Gait Training, Ea 15 Min (06/08/17 ) Exercise Therap, Ea 15 Min (06/08/17 ) Patient Visit (06/09/17 ) Treat. Speech/Lang/Voice (06/09/17 ) Patient Visit (06/09/17 ) Gait Training, Ea 15 Min (06/09/17 ) Exercise Therap, Ea 15 Min (06/09/17 ) Functional Activities, Ea 15 (06/09/17 ) Rehab Nursing Orders: Diseage Management, Edu in Press Rel Techn, Hydration Management, Nutrition Management, Pain Management Other Nursing Orders: Monitor for urinary retention and constipation PT IPOC Problem List: Activity Tolerance, Safety Treatment Plan: Continue Plan of Care Bed Mobility, Education, Functional Activity Azucena, Functional Strength, Group Therapy, Gait, Safety, Therapeutic Exercise, Transfers Treatment Duration: Jun 28, 2017 Frequency: At least 5 of 7 days/Wk (IRF) Estimated Hrs Per Day: 1.5 hours per day OT IPOC Problems: Decreased Activ Tolerance, Impaired I ADL's, Impaired Self-Care Skills OT Treatment, Training and Edu: Yes Plan of Care: ADL Retraining, Functional Mobility, Group Exercise/Act as Ind, UE Funct Exercise/Act Treatment Duration: Jun 21, 2017 Frequency: At least 5 of 7 days/Wk (IRF) Estimated Hrs Per Day: 1.5 hours per day [facility] Speech Therapy Treatment Plan: Continue Plan of Care Treatment Duration: Jun 21, 2017 Frequency: At least 5 of 7 days/Wk (IRF) Estimated Hrs Per Day: .5 hour per day Weft Straightener/Case Mgmt Weft Straightener/Case Managemen: Discharge Planning, Patient/Family Counseling Physician [facility] Medical Issues being managed closely and that require the 24 hour availability of a physician: 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 CKD stage 3 Anxiety HTN Cardiomyopathy [facility] CODE 03.2 Etiologic DX Parkinsons D Medical Issues: Bowel/Bladder Function, DVT Prophylaxis, Falls Precautions, Other (List) (as per above) Brief Synthesis of Preadmission Screen, Post-Admission Evaluation, and Therapy Evaluations: 82 yo female with Park D who had been Modified Independent at home with a 4 WW who has assistance at home from spouse and daughter but having increased falls at home Patients spouse recovering from recent ERCP PMH Cardiomyopathy,HTN CKD3 Anxiety Medical Prognosis: Good Anticipated Length of Stay: 06-21-17 Rehab Goals Modified Independent to supervision for adls and mobility skills Anticipated discharge destinat: Home with spouse with [facility] ELOISE STARKS MD Jun 09, 2017 15:59
[2017-06-09 18:00] VITALS: BP 108/69
[2017-06-10 04:43] VITALS: BP 100/64
[2017-06-10] MEDS: PANTOPRAZOLE 20 MG TABLET (PROTONIX) PO SCH (06:16)
[2017-06-10] MEDS: PRAMIPEXOLE 0.125 MG (MIRAPEX) TABLET PO SCH ×2 (09:16→20:50)
[2017-06-10] MEDS: SERTRALINE 50 MG (ZOLOFT) TABLET PO SCH (09:16)
[2017-06-10] MEDS: ASPIRIN E.C. 81 MG (ECOTRIN) TAB PO SCH (09:16)
[2017-06-10] MEDS: meTOprolol TARTRATE 25 MG (LOPRESSOR) TABLET PO SCH ×2 (09:16→20:50)
[2017-06-10] MEDS: SPIRONOLACTONE 25 MG (ALDACTONE) TAB PO SCH (09:16)
[2017-06-10] MEDS: lisINopril 5 MG (PRINIVIL) TABLET PO SCH (09:17)
--- NOTE | 2017-06-10 09:54 | PM & R (SOAP) Progress Note ---
Subjective Time Seen by Provider: 09:35 Subjective/Events-last exam Patient was seen in her room this AM Patient Modified Independent for transfers Objective Exam Last Set of Vital Signs Vital Signs Date Time Temp Pulse Resp B/P (MAP) Pulse Ox O2 Delivery O2 Flow Rate FiO2 06/10/17 09:00 Nasal Cannula 2.00 06/10/17 04:43 97.2 85 18 100/64 (76) 94 Capillary Refill : Less Than 3 Seconds I&O Intake and Output 06/10/17 00:00 Intake Total 1160 ml Balance 1160 ml Intake Oral 1160 ml # Voids 9 # Bowel Movements 1 General: Alert, Oriented X3, Cooperative, No Acute Distress HEENT: Atraumatic, PERRLA, EOMI, Mucous Memb Moist/[place] Neck: Supple, No JVD Lungs: Clear to Auscultation Heart: Regular Rate Abdomen: Normal Bowel Sounds, Soft, No Tenderness Extremities: No Edema Neuro: Other (genralized weakness slow gait dysphonia) Results Lab Laboratory Tests 06/08/17 05:48: White Blood Count 5.7, Red Blood Count 3.95L, Hemoglobin 12.2, Hematocrit 38, Mean Corpuscular Volume 95, Mean Corpuscular Hemoglobin 31, Mean Corpuscular Hemoglobin Concent 32, Red Cell Distribution Width 12.7, Platelet Count 137, Mean Platelet Volume 10.1, Sodium Level 138, Potassium Level 4.4, Chloride Level 102, Carbon Dioxide Level 27, Anion Gap 9, Blood Urea Nitrogen 18, Creatinine 0.74, Estimat Glomerular Filtration Rate > 60, BUN/Creatinine Ratio 24, Glucose Level 96, Calcium Level 9.4, Total Bilirubin 0.8, Aspartate Amino Transf (AST/SGOT) 29, Alanine Aminotransferase (ALT/SGPT) 11, Alkaline Phosphatase 67, Total Protein 5.5L, Albumin 3.6 Assessment/Plan Assessment Progressive Park D with gait imbalance and dysphonia HTN Recent falls Plan Continue PT/OT/ST Team Conference held 06-08-17 See report for full functional update and POC and ELOS F/U with DR Bonds PRN Discharge set for home 06/13/17 with spouse and daughter Current meds reviewed ELOISE STARKS MD Jun 10, 2017 09:54
--- NOTE | 2017-06-10 10:06 | Speech Therapy Daily Note ---
Speech Daily Progress Note Subjective Date Seen by Provider: Jun 10, 2017 Time Seen by Provider: 08:30 The patient was laying in bed upon entrance. The clinician assisted the patient to her recliner next to her bed. The patient greeted the clinician appropriately and was agreeable to participation in the voice treatment session. Objective LSVT ([facility]) treatment was continued on this date with the following results: - Duration of Sustained "ah": On average, the patient sustained an "ah" loudly for 13 seconds with moderate clinician verbal prompting. The patient has improved by 4 seconds in comparison to the prior session. - Intensity of sustained 'ah': On average, the patient's intensity for the sustained 'ah' was 68.55 dB SPL, which is a 4 dB increase in comparison to the prior day. - Intensity of functional phrases: On average, the patient's intensity levels for functional phrases was 64.25 dB SPL with moderate clinician verbal prompting. The patient was encouraged to "Think Loud!" and use her loud voice throughout the day. Additionally, strategies to improve her intelligibility to others was discussed. These strategies included reducing distractions, making sure she has the person's attention, or moving into the same room as the person she is addressing. Assessment Assessment Current Status: Excellent Progress Treatment Plan Continue Plan of Care Communication Comprehension: 5 Expression: 4 (Voice intensity, only.) Social Cognition Social Interaction: 6 Problem Solvin Memory: 6 Speech Short Term Goals Short Term Goals Short Term Goals 1. The patient will display a sustained /ah/ at comfortable volume levels for 12 seconds and at loud volume levels with 8 seconds. 2. The patient will demonstrate diaphragmatic breathing with 80% accuracy and mild clinician verbal cueing. 3. The patient will complete functional phrases at 65 dB, loud /ah/ at 70 dB, and conversation at 65 dB with mild clinician verbal cueing. Time Frame-STG: One Week Speech [place] Tra[place] Goals Residential Goals 1. The patient will display improved conversational volumes for increased safety and function. Time Frame: Two Weeks Speech-Plan Treatment Plan Speech Therapy Treatment Plan: Continue Plan of Care Continue skilled speech pathology to target improved vocal intensity. Treatment Duration: Jun 21, 2017 Frequency: At least 5 of 7 days/Wk (IRF) Estimated Hrs Per Day: .5 hour per day Rehab Potential: Good Safety Risks/Education Teaching Recipient: Patient Teaching Methods: Demonstration, Handout, Discussion Response to Teaching: Verbalize Understanding, Return Demonstration Education Topics Provided: LSVT Homework Time Speech Therapy Time In: 08:30 Speech Therapy Time Out: 09:00 Total Billed Time: 30 Billed Treatment Time 1, PAIGE LEAVITT Jun 10, 2017 10:06
[2017-06-10] MEDS: RASAGILINE 1 MG PO SCH (10:14)
[2017-06-10] MEDS: SINEMET 25/100 (CARBIDOPA/LEVODOPA) TAB PO SCH ×3 (10:15→20:50)
--- NOTE | 2017-06-10 11:57 | Progress Note ---
Subjective Date Seen by Provider: Jun 10, 2017 Time Seen by Provider: 10:00 Subjective/Events-last exam PT REPORTS THAT SHE IS FEELING A LITTLE STRONGER - TODAY. - THERAPY STAFF REPORTS THAT THE PLAN FOR DISCHARGE IS TUESDAY. SHE IS PARTICIPATING IN A BATH DURING MY EXAM - JUST DONE WITH SHOWER - DRYING HERSELF OFF WITH STAND-BY AIDE OF STAFF. Review of Systems General: No Chills, No Night Sweats, Fatigue HEENT: No Head Aches Pulmonary: No Cough Cardiovascular: No: Chest Pain, Palpitations Gastrointestinal: No: Nausea, Abdominal Pain Neurological: Weakness, No: Confusion Objective Exam Last Set of Vital Signs Vital Signs Date Time Temp Pulse Resp B/P (MAP) Pulse Ox O2 Delivery O2 Flow Rate FiO2 06/10/17 10:24 Nasal Cannula 2.00 06/10/17 04:43 97.2 85 18 100/64 (76) 94 Capillary Refill : Less Than 3 Seconds I&O Intake and Output 06/10/17 00:00 Intake Total 1160 ml Balance 1160 ml Intake Oral 1160 ml # Voids 9 # Bowel Movements 1 General: Alert, Oriented X3, Cooperative, No Acute Distress HEENT: Atraumatic, PERRLA, EOMI, Mucous Memb Moist/[place] Neck: Supple, No JVD Lungs: Clear to Auscultation Heart: Regular Rate Abdomen: Normal Bowel Sounds, Soft, No Tenderness Extremities: No Edema Neuro: Other (genralized weakness slow gait dysphonia) Assessment/Plan Assessment/Plan Assess & Plan/Chief Complaint PARKINSON'S DISEASE GENERALIZED WEAKNESS HYPERTENSION ESOPHAGEAL REFLUX GENERALIZED ANXIETY PARKINSON'S DISEASE - RESTART SINEMET AND REQIUP. - CONTINUE WITH THERAPY GENERALIZED WEAKNESS - GENERALIZED WEAKNESS DUE TO DECREASED ACTIVITY - ENCOURAGE PHYSICAL THERAPY, OCCUPATIONAL THERAPY. HYPERTENSION - RESUMED HOME MEDICATIONS ESOPHAGEAL REFLUX - RESUMED PPI. GENERALIZED ANXIETY - RESTARTED XANAX - RESTARTED SSRI Clinical Quality Measures DVT/VTE Risk/Contraindication: Risk Factor Score Per Nursin RFS Level Per Nursing on Admit: 4+=Very High NICOLE BOLAÑOS MD Jun 10, 2017 11:57
--- NOTE | 2017-06-10 12:08 | Physical Therapy Daily Note ---
PT Daily Note-Current Subjective Pt in restroom upon arrival. Pt is taking herself to restroom without Nurse or Therapy's assistance. Pt advised need to have staff with her at this time for safety. Pt agrees to PT. Pain Location: No Pain Reported Mental Status Patient Orientation: Person, Place, Situation Transfers Functional [place] Measure 0=Not Assessed/NA 4=Minimal Assistance 1=Total Assistance 5=Supervision or Setup 2=Maximal Assistance 6=Modified [place] 3=Moderate Assistance 7=Complete IndependenceIRFPAI Quality Coding Scale 6 Independent with activity with or without an assistive device 5 Patient requires set up or clean up by helper. Patient completes activity by themselves 4 Supervision or touching assist (CGA). [place] provide cues , steadying assist 3 The helper provides less than half the effort to complete the activity 2 The helper provides more than half the effort to complete the activity 1 Dependent. The helper does all the effort to complete an activity 7 Patient refused to complete or attempt activity 9 The patient did not perform the activity before the current illness or injury 88 Not attempted due to Medical conditions or safety concerns Scootin Sit to/from Stand: 6 Sit to Stand (QC): 6 Weight Bearing Right Lower Extremity: Right Full Weight Bearing Left Lower Extremity: Left Full Weight Bearing Gait Training Does the Patient Walk?: Yes Distance (FIM): 3=150 ft Distance: 150' Walk 10 feet (QC): 5 Walk 50 ft with 2 Turns(QC): 5 Walk 150 ft (QC): 5 Gait Level of Assist: 5 Gait Persons Needed: 1 Gait Assistive Device: Walker 4 Wheeled Pt has slow remedios but otherwise normalized gait, no LOB. Pt fatigues easy and needs VC to stay close to 4WW. Wheelchair Training Does the Pt Use a Wheelchair?: No Exercises NuStep Minutes: 15 NuStep Workload: 5 Treatments Pt using restroom upon arrival. Pt finishes then transfers to standing using 4WW at Mod I. Pt ambulates in hallway using 4WW at SBA. Pt uses NuStep for 15m at Workload 5 then pt returns to room to rest and await OT tx. Pt has all needs met. Assessment Current Status: Good Progress Pt fatigues easy and needs occasional rest breaks. PT Short Term Goals Short Term Goals Time Frame: Jun 14, 2017 Transfers (B,C,W/C) (FIM): 5 Gait (FIM): 5 Gait Distance Comment: 300' Gait Level of Assist: 5 Gait Assistive Device: Walker 4 Wheeled PT Editor Newspaper Goals Residential Goals PT Editor Newspaper Goals Time Frame: Jun 28, 2017 Transfers (B,C,W/C) (FIM): 6 Sit to Lying (QC): 6 Lying-Sitting on Side/Bed(QC): 6 Sit to Stand (QC): 6 Rollin Roll Left to Right (QC): 6 Chair/Squ-ub-Bxuce Xfer(QC): 6 Car Transfer (QC): 6 Gait (FIM): 6 Distance: 400' Walk 10 feet (QC): 6 Walk 10ft-Uneven Surface(QC): 6 Walk 50ft with 2 Turns (QC): 6 Walk 150 ft (QC): 6 Gait Level of Assist: 6 Gait Assistive Device: Walker 4 Wheeled Stairs (FIM): 5 # of Steps: 12 1 Step (curb) (QC): 4 4 Steps (QC): 4 12 Steps (QC): 4 Stairs Level Of Assist: 5 Picking up an Object (QC): 4 PT Plan Problem List Problem List: Activity Tolerance, Safety, Gait Treatment/Plan Treatment Plan: Continue Plan of Care Treatment Plan: Bed Mobility, Education, Functional Activity Azucena, Functional Strength, Group Therapy, Gait, Safety, Therapeutic Exercise, Transfers Treatment Duration: Jun 28, 2017 Frequency: At least 5 of 7 days/Wk (IRF) Estimated Hrs Per Day: 1.5 hours per day Patient and/or Family Agrees t: Yes Safety Risks/Education Patient Education: Gait Training, Correct Positioning, Safety Issues Teaching Recipient: Patient Teaching Methods: Discussion Response to Teaching: Verbalize Understanding Time/GCodes Time In: 900 Time Out: 945 Total Billed Treatment Time: 45 Total Billed Treatment 1, GT (15m), FA (15m) & EX (15m) ALEXANDRA SALAMANCA PTA Jun 10, 2017 12:08
--- NOTE | 2017-06-10 12:39 | Occupational Ther Daily Note ---
OT Current Status-Daily Note Subjective No pain reported. Appearance Pt. agrees to treatment. Mental Status/Objective Patient Orientation: Person, Place Functional [place] Measure 0=Not Assessed/NA 4=Minimal Assistance 1=Total Assistance 5=Supervision or Setup 2=Maximal Assistance 6=Modified [place] 3=Moderate Assistance 7=Complete [place] ADL-Treatment Functional [place] Measure 0=Not Assessed/NA 4=Minimal Assistance 1=Total Assistance 5=Supervision or Setup 2=Maximal Assistance 6=Modified [place] 3=Moderate Assistance 7=Complete IndependenceIRFPAI Quality Coding Scale 6 Independent with activity with or without an assistive device 5 Patient requires set up or clean up by helper. Patient completes activity by themselves 4 Supervision or touching assist (CGA). [place] provide cues , steadying assist 3 The helper provides less than half the effort to complete the activity 2 The helper provides more than half the effort to complete the activity 1 Dependent. The helper does all the effort to complete an activity 7 Patient refused to complete or attempt activity 9 The patient did not perform the activity before the current illness or injury 88 Not attempted due to Medical conditions or safety concerns Transfers (B, C, W/C) (FIM): 5 (Pt. requires SBA to ambulate with rolling walker to therapy gym.) Other Treatment Pt. tolerated 15 minutes on armbike for increased overall endurance and strength. Pt. required several brief rest breaks. Tolerated treatment well. Ambulated back to room. Education OT Patient Education: Correct positioning, Exercise program, Progress toward Goal/Update tx plan, Purpose of tx/functional activities, Reviewed precautions, Rehab process, Transfer techniques Teaching Recipient: Patient Teaching Methods: Demonstration, Discussion Response to Teaching: Verbalize Understanding, Return Demonstration OT Short Term Goals Short Term Goals Time Frame: Jun 14, 2017 Eating(FIM): 5 Grooming(FIM): 5 Bathing(FIM): 5 Upper Body Dressing(FIM): 4 Lower Body Dressing(FIM): 5 Toileting(FIM): 4 Transfers (B,C,W/C) (FIM): 5 Toilet/Commode Transfer(FIM): 5 Shower Transfer(FIM): 4 Additional Short Term Goals: 1-Demonstrate ADL Tasks, 2-Verbalize Understanding , 3-ImproveStrength/Azucena 1=Demonstrate adherence to instructed precautions during ADL tasks. 2=Patient will verbalize/demonstrate understanding of assistive devices/ modifications for ADL. 3=Patient will improve strength/tolerance for activity to enable patient to perform ADL's. OT Metal Tile Lather Goals Metal Tile Lather Goals Time Frame: Jun 21, 2017 Eating (FIM): 6 Eating (QC): 6 Groomin Oral Hygiene (QC): 6 Bathing(FIM): 5 Shower/Bathe Self (QC): 4 Upper Body Dressing(FIM): 5 Upper Body Dressing (QC): 4 Lower Body Dressing(FIM): 5 Lower Body Dressing (QC): 4 On/Off Footwear (QC): 4 Toileting(FIM): 6 Toileting Hygiene (QC): 6 Transfers (B,C,W/C) (FIM): 6 Toilet/Commode Transfer(FIM): 6 Toilet/Commode Transfer (QC): 6 Shower Transfer(FIM): 5 Additional Goals: 1-Demonstrate ADL Tasks, 2-Verbalize Understanding, 3- ImproveStrength/Azucena 1=Demonstrate adherence to instructed precautions during ADL tasks. 2=Patient will verbalize/demonstrate understanding of assistive devices/ modifications for ADL. 3=Patient will improve strength/tolerance for activity to enable patient to perform ADL's. OT Education/Plan Problem List/Assessment Assessment: Decreased Activ Tolerance, Impaired I ADL's, Impaired Self-Care Skills Discharge Recommendations Plan/Recommendations: Continue POC Therapy D/C Recommendations: Home w/ Family Support Treatment Plan/Plan of Care Treatment,Training & Education: Yes Patient would benefit from OT for education, treatment and training to promote independence in ADL's, mobility, safety and/or upper extremity function for ADL' s. Plan of Care: ADL Retraining, Functional Mobility, Group Exercise/Act as Ind, UE Funct Exercise/Act Treatment Duration: Jun 21, 2017 Frequency: At least 5 of 7 days/Wk (IRF) Estimated Hrs Per Day: 1.5 hours per day Agreement: Yes Rehab Potential: Good Time/GCodes Start Time: 13:30 Stop Time: 14:00 Total Time Billed (hr/min): 30 Billed Treatment Time 1, EX x 2 This note reflects afternoon treatment performed on 06-09-17 MARCELLBENITAZACHERY OT Jun 10, 2017 12:39
--- NOTE | 2017-06-10 12:42 | Occupational Ther Daily Note ---
OT Current Status-Daily Note Subjective No pain reported. Appearance Pt. agrees to shower. Mental Status/Objective Patient Orientation: Person, Place Functional [place] Measure 0=Not Assessed/NA 4=Minimal Assistance 1=Total Assistance 5=Supervision or Setup 2=Maximal Assistance 6=Modified [place] 3=Moderate Assistance 7=Complete [place] ADL-Treatment Functional [place] Measure 0=Not Assessed/NA 4=Minimal Assistance 1=Total Assistance 5=Supervision or Setup 2=Maximal Assistance 6=Modified [place] 3=Moderate Assistance 7=Complete IndependenceIRFPAI Quality Coding Scale 6 Independent with activity with or without an assistive device 5 Patient requires set up or clean up by helper. Patient completes activity by themselves 4 Supervision or touching assist (CGA). [place] provide cues , steadying assist 3 The helper provides less than half the effort to complete the activity 2 The helper provides more than half the effort to complete the activity 1 Dependent. The helper does all the effort to complete an activity 7 Patient refused to complete or attempt activity 9 The patient did not perform the activity before the current illness or injury 88 Not attempted due to Medical conditions or safety concerns Grooming (FIM): 5 (SBA to stand and brush teeth at sink.) Oral Hygiene (QC): 4 Bathing (FIM): 5 (SBA to shower.) Shower/Bathe Self (QC): 4 Upper Body (FIM): 5 Upper Body Dressing (QC): 4 Lower Body Dressing (FIM): 5 (SBA to don underwear, pants, socks, and shoes.) Lower Body Dressing (QC): 4 On/Off Footwear (QC): 4 Toileting (FIM): 5 Toileting Hygiene (QC): 4 Transfers (B, C, W/C) (FIM): 5 Toilet/Commode Transfer (FIM): 5 Toilet Transfer (QC): 5 Shower Transfer(FIM): 5 Education OT Patient Education: Correct positioning, Modified ADL techniques, Progress toward Goal/Update tx plan, Purpose of tx/functional activities, Reviewed precautions, Rehab process, Transfer techniques Teaching Recipient: Patient Teaching Methods: Demonstration, Discussion Response to Teaching: Verbalize Understanding, Return Demonstration OT Short Term Goals Short Term Goals Time Frame: Jun 14, 2017 Eating(FIM): 5 Grooming(FIM): 5 Bathing(FIM): 5 Upper Body Dressing(FIM): 4 Lower Body Dressing(FIM): 5 Toileting(FIM): 4 Transfers (B,C,W/C) (FIM): 5 Toilet/Commode Transfer(FIM): 5 Shower Transfer(FIM): 4 Additional Short Term Goals: 1-Demonstrate ADL Tasks, 2-Verbalize Understanding , 3-ImproveStrength/Azucena 1=Demonstrate adherence to instructed precautions during ADL tasks. 2=Patient will verbalize/demonstrate understanding of assistive devices/ modifications for ADL. 3=Patient will improve strength/tolerance for activity to enable patient to perform ADL's. OT Post Partum Nurse Goals Post Partum Nurse Goals Time Frame: Jun 21, 2017 Eating (FIM): 6 Eating (QC): 6 Groomin Oral Hygiene (QC): 6 Bathing(FIM): 5 Shower/Bathe Self (QC): 4 Upper Body Dressing(FIM): 5 Upper Body Dressing (QC): 4 Lower Body Dressing(FIM): 5 Lower Body Dressing (QC): 4 On/Off Footwear (QC): 4 Toileting(FIM): 6 Toileting Hygiene (QC): 6 Transfers (B,C,W/C) (FIM): 6 Toilet/Commode Transfer(FIM): 6 Toilet/Commode Transfer (QC): 6 Shower Transfer(FIM): 5 Additional Goals: 1-Demonstrate ADL Tasks, 2-Verbalize Understanding, 3- ImproveStrength/Azucena 1=Demonstrate adherence to instructed precautions during ADL tasks. 2=Patient will verbalize/demonstrate understanding of assistive devices/ modifications for ADL. 3=Patient will improve strength/tolerance for activity to enable patient to perform ADL's. OT Education/Plan Problem List/Assessment Assessment: Decreased Activ Tolerance, Impaired I ADL's, Impaired Self-Care Skills Discharge Recommendations Plan/Recommendations: Continue POC Therapy D/C Recommendations: Home w/ Family Support Treatment Plan/Plan of Care Treatment,Training & Education: Yes Patient would benefit from OT for education, treatment and training to promote independence in ADL's, mobility, safety and/or upper extremity function for ADL' s. Plan of Care: ADL Retraining, Functional Mobility, Group Exercise/Act as Ind, UE Funct Exercise/Act Treatment Duration: Jun 21, 2017 Frequency: At least 5 of 7 days/Wk (IRF) Estimated Hrs Per Day: 1.5 hours per day Agreement: Yes Rehab Potential: Good Time/GCodes Start Time: 09:45 Stop Time: 10:45 Total Time Billed (hr/min): 60 Billed Treatment Time 1, ADL x 4 ZACHERY WHITAKER OT Jun 10, 2017 12:42
[2017-06-10] MEDS: ALPRAZolam 0.25 MG (XANAX) TAB PO PRN (12:50)
--- NOTE | 2017-06-10 15:07 | Therapy Group Daily Note ---
Therapy Daily Group Note Patient Education Topic Other List Below (AD Equipment & ARU Description) Exercises LE Seated Exercise, UE Exercise Other/Notes Pt ambulated to PT/OT Group using [facility] at [facility]. Group consisted of Introductions ( Name, Where you are from & Favorite Funny Joke/Story), Socialization, Description of ARU and how it works, Assistive Devices, where they can be purchased and how they are used at home or in the community as well as Seated UE & LE Exercise. Pt actively participated in Group by completing Exercises, Giving examples of funny stories and where she has found Assistive Devices. Pt returns to room at end of tx to rest in bed. Start Time: 13:00 Stop Time: 14:20 Total Billed Treatment Time: 80 Total Billed Treatment 1, GRP JADYNALEXANDRA FIXED INCOME ANALYST Jun 10, 2017 15:06
[2017-06-10 17:35] VITALS: BP 98/57
[2017-06-11 06:00] VITALS: BP 108/68
[2017-06-11] MEDS: PANTOPRAZOLE 20 MG TABLET (PROTONIX) PO SCH (06:13)
[2017-06-11] MEDS: ASPIRIN E.C. 81 MG (ECOTRIN) TAB PO SCH (08:30)
[2017-06-11] MEDS: SPIRONOLACTONE 25 MG (ALDACTONE) TAB PO SCH (08:30)
[2017-06-11] MEDS: PRAMIPEXOLE 0.125 MG (MIRAPEX) TABLET PO SCH ×2 (08:30→20:20)
[2017-06-11] MEDS: SINEMET 25/100 (CARBIDOPA/LEVODOPA) TAB PO SCH ×3 (08:30→20:20)
[2017-06-11] MEDS: SERTRALINE 50 MG (ZOLOFT) TABLET PO SCH (08:30)
[2017-06-11] MEDS: RASAGILINE 1 MG PO SCH (08:31)
[2017-06-11 08:34] VITALS: BP 91/53
[2017-06-11] MEDS: lisINopril 5 MG (PRINIVIL) TABLET PO SCH (10:16)
[2017-06-11] MEDS: meTOprolol TARTRATE 25 MG (LOPRESSOR) TABLET PO SCH ×2 (10:16→20:21)
[2017-06-11 11:10] VITALS: BP 113/71
--- NOTE | 2017-06-11 12:22 | Physical Therapy Daily Note ---
PT Daily Note-Current Subjective Agreeable to PT Reports she is going on a day pass tomorrow. Transfers Functional [place] Measure 0=Not Assessed/NA 4=Minimal Assistance 1=Total Assistance 5=Supervision or Setup 2=Maximal Assistance 6=Modified [place] 3=Moderate Assistance 7=Complete IndependenceIRFPAI Quality Coding Scale 6 Independent with activity with or without an assistive device 5 Patient requires set up or clean up by helper. Patient completes activity by themselves 4 Supervision or touching assist (CGA). [place] provide cues , steadying assist 3 The helper provides less than half the effort to complete the activity 2 The helper provides more than half the effort to complete the activity 1 Dependent. The helper does all the effort to complete an activity 7 Patient refused to complete or attempt activity 9 The patient did not perform the activity before the current illness or injury 88 Not attempted due to Medical conditions or safety concerns Pt is mod indep with sit to from stand with correct use of hands and sequencing. Weight Bearing Right Lower Extremity: Right Full Weight Bearing Left Lower Extremity: Left Full Weight Bearing Gait Training Does the Patient Walk?: Yes Gait (FIM): 6 Distance (FIM): 3=150 ft Distance: 150 ft x 3 Gait Assistive Device: Walker 4 Wheeled skilled cues to increase step length Stair Training Stair Training: Handrails/: 2 handrails Stairs (FIM): 5 #of Steps: 8 Stairs: Pattern: Step to 8 steps mod indep Exercises NuStep Minutes: 10 NuStep Workload: 4 (for LE strength and functional act tolerance) Assessment Current Status: Good Progress Increased strength and mobility. PT Short Term Goals Short Term Goals Time Frame: Jun 14, 2017 Transfers (B,C,W/C) (FIM): 5 (met) Gait (FIM): 5 Gait Distance Comment: 300' Gait Level of Assist: 5 (met) Gait Assistive Device: Walker 4 Wheeled PT Nuclear Auxiliary Operator Goals Nuclear Auxiliary Operator Goals PT Nuclear Auxiliary Operator Goals Time Frame: Jun 28, 2017 Transfers (B,C,W/C) (FIM): 6 Sit to Lying (QC): 6 Lying-Sitting on Side/Bed(QC): 6 Sit to Stand (QC): 6 Rollin Roll Left to Right (QC): 6 Chair/Gts-yr-Tbqzx Xfer(QC): 6 Car Transfer (QC): 6 Gait (FIM): 6 Distance: 400' Walk 10 feet (QC): 6 Walk 10ft-Uneven Surface(QC): 6 Walk 50ft with 2 Turns (QC): 6 Walk 150 ft (QC): 6 Gait Level of Assist: 6 Gait Assistive Device: Walker 4 Wheeled Stairs (FIM): 5 # of Steps: 12 1 Step (curb) (QC): 4 4 Steps (QC): 4 12 Steps (QC): 4 Stairs Level Of Assist: 5 Picking up an Object (QC): 4 PT Plan Problem List Problem List: Activity Tolerance, Functional Strength, Safety Treatment/Plan Treatment Plan: Continue Plan of Care Treatment Plan: Bed Mobility, Education, Functional Activity Azucena, Functional Strength, Group Therapy, Gait, Safety, Therapeutic Exercise, Transfers Treatment Duration: Jun 28, 2017 Frequency: At least 5 of 7 days/Wk (IRF) Estimated Hrs Per Day: 1.5 hours per day Patient and/or Family Agrees t: Yes Safety Risks/Education Patient Education: Safety Issues Teaching Recipient: Patient Teaching Methods: Discussion Response to Teaching: Verbalize Understanding Time/GCodes Time In: 1155 Time Out: 1220 Total Billed Treatment Time: 25 Total Billed Treatment visit EX 10 GT 15 NATANAEL KENNEDY PT Jun 11, 2017 12:22
--- NOTE | 2017-06-11 12:40 | Progress Note-Standard ---
Standard Progress Note Progress Notes/Assess & Plan Date Seen 06/11/17 Time Seen by Provider: 12:15 Assess & Plan/Chief Complaint At patient doing well overall and having lunch 60 year anniversary next week Discharge plan for Tuesday Holding blood pressure medication 2-91/60 blood pressure but asymptomatic Denies any bowel issues No fever, vital signs stable but blood pressure 91/60 Pleasant Regular rate and rhythm, clear to auscultation bilaterally No edema Assessment: Severe debility Parkinson's disease Hypertension with hypotensive episode this morning holding blood pressure medication GERD Plan: Inpatient rehabilitation to continue Maintain medication as is but giving parameters for blood pressure medication to hold less than 100 systolic JEWEL REVELES DO Jun 11, 2017 12:40
[2017-06-11 17:14] VITALS: BP 103/69
[2017-06-12 06:06] VITALS: BP 92/57
[2017-06-12] MEDS: PANTOPRAZOLE 20 MG TABLET (PROTONIX) PO SCH (06:41)
[2017-06-12] MEDS: SPIRONOLACTONE 25 MG (ALDACTONE) TAB PO SCH (08:15)
[2017-06-12] MEDS: ASPIRIN E.C. 81 MG (ECOTRIN) TAB PO SCH (08:15)
[2017-06-12] MEDS: SERTRALINE 50 MG (ZOLOFT) TABLET PO SCH (08:15)
[2017-06-12] MEDS: PRAMIPEXOLE 0.125 MG (MIRAPEX) TABLET PO SCH ×2 (08:15→20:00)
[2017-06-12] MEDS: SINEMET 25/100 (CARBIDOPA/LEVODOPA) TAB PO SCH ×3 (08:15→19:59)
[2017-06-12] MEDS: lisINopril 5 MG (PRINIVIL) TABLET PO SCH (08:17)
[2017-06-12] MEDS: RASAGILINE 1 MG PO SCH (08:17)
[2017-06-12] MEDS: meTOprolol TARTRATE 25 MG (LOPRESSOR) TABLET PO SCH ×2 (08:17→19:59)
[2017-06-12 08:20] VITALS: BP 95/60
--- NOTE | 2017-06-12 11:50 | Progress Note-Standard ---
Standard Progress Note Progress Notes/Assess & Plan Date Seen 06/12/17 Time Seen by Provider: 11:45 Assess & Plan/Chief Complaint Pt going to easter dinner No falls reported BM + No fever, vital signs stable but blood pressure 91/60 Pleasant Regular rate and rhythm, clear to auscultation bilaterally No edema Assessment: Severe debility Parkinson's disease Hypertension with hypotensive episode this morning holding blood pressure medication GERD Plan: Inpatient rehabilitation to continue Maintain medication as is but giving parameters for blood pressure medication to hold less than 100 systolic JEWEL REVELES DO Jun 12, 2017 11:50
[2017-06-12 18:06] VITALS: BP 145/86
[2017-06-12] MEDS ORDERED: ANTACID SUSP 30 ML UDC (MYLANTA) PO PRN (21:15)
[2017-06-13 05:22] VITALS: BP 118/75
[2017-06-13] MEDS: PANTOPRAZOLE 20 MG TABLET (PROTONIX) PO SCH (06:22)
--- NOTE | 2017-06-13 09:31 | Speech Therapy Daily Note ---
Speech Daily Progress Note Subjective Date Seen by Provider: Jun 13, 2017 Time Seen by Provider: 08:00 The patient was seated upright in recliner upon entrance. The patient greeted the clinician and was agreeable to participation in the voice treatment session. Objective [facility] ([facility] Voice Therapy) treatment was continued on this date with the following results: - Duration of Sustained "ah": On average, the patient sustained an "ah" loudly for 13 seconds with moderate clinician verbal prompting. The patient has remained consistent in comparison to the prior session. - Intensity of sustained 'ah': On average, the patient's intensity for the sustained 'ah' was 66 dB SPL, which is mostly consistent in comparison to the prior day. - Intensity of functional phrases: On average, the patient's intensity levels for functional phrases was 65 dB SPL with moderate clinician verbal prompting. The clinician visited with the patient's daughter, Chloe, regarding the patient 's progression with goals. Additionally, the patient's home recommendations were provided. The patient and her daughter verbalized comprehension of the material. Assessment Assessment Current Status: Good Progress Treatment Plan Continue Plan of Care Communication Comprehension: 5 Expression: 4 (Voice intensity, only.) Social Cognition Social Interaction: 6 Problem Solvin Memory: 6 Speech Short Term Goals Short Term Goals Short Term Goals 1. The patient will display a sustained /ah/ at comfortable volume levels for 12 seconds and at loud volume levels with 8 seconds. MET 2. The patient will demonstrate diaphragmatic breathing with 80% accuracy and mild clinician verbal cueing. PARTIALLY MET 3. The patient will complete functional phrases at 65 dB, loud /ah/ at 70 dB, and conversation at 65 dB with mild clinician verbal cueing. PARTIALLY MET Time Frame-STG: One Week Speech Assisted Goals Assisted Goals 1. The patient will display improved conversational volumes for increased safety and function. Time Frame: Two Weeks Speech-Plan Treatment Plan Speech Therapy Treatment Plan: Continue Plan of Care Continue skilled speech pathology for improved volume levels. Treatment Duration: Jun 21, 2017 Frequency: At least 5 of 7 days/Wk (IRF) Estimated Hrs Per Day: .5 hour per day Rehab Potential: Good Safety Risks/Education Teaching Recipient: Patient, Family Teaching Methods: Demonstration, Handout, Discussion Response to Teaching: Verbalize Understanding, Return Demonstration Education Topics Provided: Home Exercises Time Speech Therapy Time In: 08:00 Speech Therapy Time Out: 08:45 Total Billed Time: 45 Billed Treatment Time 1, PAIGE LEAVITT Jun 13, 2017 09:31
--- NOTE | 2017-06-13 09:37 | Therapy Team Discharge Summary ---
Therapy Discharge Summary Discharge Recommendations Date of Discharge Therapy D/C Recommendations: Home w/ Family Support Occupational Therapy Decreased Activ Tolerance, Impaired I ADL's, Impaired Self-Care Skills Speech-Language Pathology The patient was admitted to [facility] with a diagnosis of debility. Upon admission, the patient displayed moderate hypofunctional dysphonia. Due to this, the patient's skilled speech therapy focused on voice exercises to improve intensity. The patient met goals for conversational loudness and sustained loudness with moderate clinician cueing. Additionally, the patient was able to demonstrate diaphragmatic breathing with mild clinician breathing. The patient was provided voice exercises to practice at home, as well as, demonstration for each exercise. The patient denied questions regarding the recommendations at this time. Skilled speech pathology is not recommended following discharge. PT Dry Cleaning Counter Clerk Goals Mcfp Goals PT Mcfp Goals Time Frame: Jun 28, 2017 Transfers (B,C,W/C) (FIM): 6 Roll Left to Right (QC): 6 Sit to Lying (QC): 6 Lying-Sitting on Side/Bed(QC): 6 Sit to Stand (QC): 6 Chair/Iua-je-Wsthc Xfer(QC): 6 Car Transfer (QC): 6 Gait (FIM): 6 Distance: 400' Walk 10 feet (QC): 6 Walk 10ft-Uneven Surface(QC): 6 Walk 50ft with 2 Turns (QC): 6 Walk 150 ft (QC): 6 Gait Level of Assist: 6 Gait Assistive Device: Walker 4 Wheeled Stairs (FIM): 5 # of Steps: 12 1 Step (curb) (QC): 4 4 Steps (QC): 4 12 Steps (QC): 4 Stairs Level Of Assist: 5 Picking up an Object (QC): 4 OT Mcfp Goals Dry Cleaning Counter Clerk Goals Time Frame: Jun 21, 2017 Eating (FIM): 6 Eating (QC): 6 Oral Hygiene (QC): 6 Grooming(FIM): 6 Bathing(FIM): 5 Shower/Bathe Self (QC): 4 Upper Body Dressing(FIM): 5 Upper Body Dressing (QC): 4 Lower Body Dressing(FIM): 5 Lower Body Dressing (QC): 4 On/Off Footwear (QC): 4 Toileting(FIM): 6 Toileting Hygiene (QC): 6 Transfers (B,C,W/C) (FIM): 6 Toilet/Commode Transfer(FIM): 6 Toilet/Commode Transfer (QC): 6 Shower Transfer(FIM): 5 Additional Goals: 1-Demonstrate ADL Tasks, 2-Verbalize Understanding, 3- ImproveStrength/Azucena 1=Demonstrate adherence to instructed precautions during ADL tasks. 2=Patient will verbalize/demonstrate understanding of assistive devices/ modifications for ADL. 3=Patient will improve strength/tolerance for activity to enable patient to perform ADL's. Speech Mcfp Goals Dry Cleaning Counter Clerk Goals 1. The patient will display improved conversational volumes for increased safety and function. Time Frame: Two Weeks Comprehension: 5 (MET) Expression: 4 (MET) Social Interaction: 6 (MET) Problem Solvin (MET) Memory: 6 (MET) PAIGE ZALDIVAR Jun 13, 2017 09:37
[2017-06-13 09:44] VITALS: BP 122/69
[2017-06-13] MEDS: RASAGILINE 1 MG PO SCH (09:48)
[2017-06-13] MEDS: SPIRONOLACTONE 25 MG (ALDACTONE) TAB PO SCH (09:48)
[2017-06-13] MEDS: meTOprolol TARTRATE 25 MG (LOPRESSOR) TABLET PO SCH (09:48)
[2017-06-13] MEDS: SERTRALINE 50 MG (ZOLOFT) TABLET PO SCH (09:48)
[2017-06-13] MEDS: ASPIRIN E.C. 81 MG (ECOTRIN) TAB PO SCH (09:48)
[2017-06-13] MEDS: lisINopril 5 MG (PRINIVIL) TABLET PO SCH (09:48)
[2017-06-13] MEDS: SINEMET 25/100 (CARBIDOPA/LEVODOPA) TAB PO SCH ×2 (09:48→11:57)
--- NOTE | 2017-06-13 09:52 | D/C HH Face to Face Order ---
D/C Face to Face Orders Instructions for Patient Patient Instructions/FollowUp: Dr. Bonds Physician to follow Patient: Dr. Bonds Discharge Diet for Home: Regular Diet Patient Data-Allergies,Ht & Wt Patient Allergies: Coded Allergies: Penicillins (Verified Allergy, Mild, 08/05/13) Height (Feet): 5 Height (Inches): 10.00 Weight (Pounds): 137 Weight (Ounces): 0.0 Home Health Need/Face to Face Date of Face to Face: Jun 13, 2017 Clinical Findings: Generalized weakness and fatigue, Muscle weakness I have seen Pt [id number]: Yes Discharged To: Home Diagnosis/Conditions: Parkinson's Disease Problems/Diagnosis/Condition: Patient is Homebound due to: Muscle weakness Homebound Status Due to the above stated illness, injury or surgical procedure (medical condition or diagnosis) and associated clinical findings, the patient is homebound because of his/her inability to leave home except with aid of a supportive device and/or person AND leaving the home requires a considerable and taxing effort or is medically contraindicated. Pt req the following assistanc: Walker Home Health Nursing Orders Home Health Services Order: Radar Scientist-Evaluate & Treat, Physical Therapy-Evaluate & Treat Therapy Orders Therapy Orders: OT (must have SN or PT order), Physical Therapy Therapy Specific Orders: Eval assistive deivces, Teach enviro modifications/ safety, Gait training, Increase strength/endurance Certify Stmt I certify that this patient is under my care and that I, a nurse practitioner or a physician; a daycare assistant working with me, had a face to face encounter that - meets the physician face to face encounter requirements with this patient as dated. I personally scribed for ELOISE STARKS MD ([facility]) on 06/13/17 at 09:52. Electronically submitted by Shawnee Pearson ([id number]). ELOISE STARKS MD Jun 13, 2017 09:52
[2017-06-13] MEDS: PRAMIPEXOLE 0.125 MG (MIRAPEX) TABLET PO SCH (10:30)
--- NOTE | 2017-06-13 11:42 | Physical Therapy Daily Note ---
PT Daily Note-Current Subjective Patient sitting EOB pre tx, agrees to PT, no complaints of pain. Patient has to use the restroom, she ambulates in there with mod I, and pulls pants down and up with independence. Patient is discharging from this facility today and will be FIM'ed and discharged from PT. Appearance Patient in chair by her in the common area for lunch. Mental Status Patient Orientation: Person, Place, Situation Transfers Functional [place] Measure 0=Not Assessed/NA 4=Minimal Assistance 1=Total Assistance 5=Supervision or Setup 2=Maximal Assistance 6=Modified [place] 3=Moderate Assistance 7=Complete IndependenceIRFPAI Quality Coding Scale 6 Independent with activity with or without an assistive device 5 Patient requires set up or clean up by helper. Patient completes activity by themselves 4 Supervision or touching assist (CGA). [place] provide cues , steadying assist 3 The helper provides less than half the effort to complete the activity 2 The helper provides more than half the effort to complete the activity 1 Dependent. The helper does all the effort to complete an activity 7 Patient refused to complete or attempt activity 9 The patient did not perform the activity before the current illness or injury 88 Not attempted due to Medical conditions or safety concerns Transfers (B, C, W/C) (FIM): 6 Scootin Rollin Roll Left to Right (QC): 6 Supine to/from Sit: 6 Sit to/from Stand: 6 Sit to Lying (QC): 6 Sit to Stand (QC): 6 Chair/Jvh-lp-Tiixm Xfer(QC): 6 Bed to/from Chair: 6 Car Transfer (QC): 6 Patient performs bed mobility and transfers with mod I, car transfer with mod I. Patient has some difficulty getting her feet into bed but can do so without assist. Weight Bearing Right Lower Extremity: Right Full Weight Bearing Left Lower Extremity: Left Full Weight Bearing Gait Training Gait (FIM): 6 Distance: 300', 150' Walk 10 feet (QC): 6 Walk 50 ft with 2 Turns(QC): 6 Walk 150 ft (QC): 6 Walking 10ft/uneven surface-QC: 6 Gait Level of Assist: 6 Gait Assistive Device: Walker 4 Wheeled Patient can ambulate 300' with a 4 wheeled walker with mod I, including 50' with at least 2 turns of 90 degrees and 10' over an uneven surface. Wheelchair Training Does the Pt Use a Wheelchair?: No Stair Training Stair Training: Handrails/: 2 handrails Stairs (FIM): 5 #of Steps: 12 1 Step (curb) (QC): 4 4 Steps (QC): 4 12 Steps (QC): 4 Stairs: Pattern: Step to Level of Assist: 5 Patient can go up and down 12 steps using 2 handrails with SBA. She needs close supervision but no assist. Patient was also instructed on how to go up and down stairs sideways using 1 handrail if she needed to do that at home. Balance Picking up an Object (QC): 4 (SBA) Treatments bed mobility and transfers, ambulation, stair training Assessment Current Status: Fair Progress improved ambulation, balance, general mobility PT Short Term Goals Short Term Goals Time Frame: Jun 14, 2017 Transfers (B,C,W/C) (FIM): 5 Gait (FIM): 5 Gait Distance Comment: 300' Gait Level of Assist: 5 Gait Assistive Device: Walker 4 Wheeled PT [facility] Goals Network Technology Instructor Goals PT [facility] Goals Time Frame: Jun 28, 2017 Transfers (B,C,W/C) (FIM): 6 (met) Sit to Lying (QC): 6 (met) Lying-Sitting on Side/Bed(QC): 6 (met) Sit to Stand (QC): 6 (met) Rollin (met) Roll Left to Right (QC): 6 (met) Chair/Aui-dy-Jmnqf Xfer(QC): 6 (met) Car Transfer (QC): 6 (met) Gait (FIM): 6 (met) Distance: 400' Walk 10 feet (QC): 6 (met) Walk 10ft-Uneven Surface(QC): 6 (met) Walk 50ft with 2 Turns (QC): 6 (met) Walk 150 ft (QC): 6 (met) Gait Level of Assist: 6 (met) Gait Assistive Device: Walker 4 Wheeled Stairs (FIM): 5 (met) # of Steps: 12 (met) 1 Step (curb) (QC): 4 (met) 4 Steps (QC): 4 (met) 12 Steps (QC): 4 (met) Stairs Level Of Assist: 5 (met) Picking up an Object (QC): 4 (met) PT Plan Problem List Problem List: Activity Tolerance, Functional Strength, Safety, Balance, Gait, Transfer, Bed Mobility Treatment/Plan Treatment Plan: Discontinue PT Treatment Plan: Bed Mobility, Education, Functional Activity Azucena, Functional Strength, Group Therapy, Gait, Safety, Therapeutic Exercise, Transfers Treatment Duration: Jun 28, 2017 Frequency: At least 5 of 7 days/Wk (IRF) Estimated Hrs Per Day: 1.5 hours per day Patient and/or Family Agrees t: Yes Safety Risks/Education Patient Education: Gait Training, Transfer Techniques, Steps, Correct Positioning, Safety Issues Teaching Recipient: Patient Teaching Methods: Demonstration, Discussion Response to Teaching: Reinforcement Needed Time/GCodes Time In: 1115 Time Out: 1135 Total Billed Treatment Time: 20 Total Billed Treatment 1 visit GT 20' ABDIFATAH WILLIS PT Jun 13, 2017 11:42
--- NOTE | 2017-06-13 11:49 | Therapy Team Discharge Summary ---
Therapy Discharge Summary Discharge Recommendations Date of Discharge Therapy D/C Recommendations: Home w/ Family Support Physical Therapy Patient came to rehab with a diagnosis of debility. Upon evaluation patient performed bed mobility with SBA, she has some difficulty with supine <-> sit but is able to do it without assist, transfers with CGA, car transfer CGA, ambulated 250' with a 4 wheeled walker with CGA, including 50' with at least 2 turns of 90 degrees and 10' over an uneven surface, and went up and down 4 steps using 2 handrails with CGA. Patient has been performing bed mobility and transfer training, balance and endurance training, functional strengthening, stair training, gait training, and education. 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 Now, patient performs bed mobility and transfers with mod I, car transfer mod I, ambulates 300' with a 4 wheeled walker with mod I (including 50' with at least 2 turns of 90 degrees and 10' over an uneven surface), can merchandise pickup/receiving associate and object from the ground with SBA, and can go up and down 12 steps using 2 handrails with SBA. Patient is discharging from this facility today and will be discharged from PT at this time. Occupational Therapy Decreased Activ Tolerance, Impaired I ADL's, Impaired Self-Care Skills PT [facility] Goals [place] Goals PT [place] Goals Time Frame: Jun 28, 2017 Transfers (B,C,W/C) (FIM): 6 (met) Roll Left to Right (QC): 6 (met) Sit to Lying (QC): 6 (met) Lying-Sitting on Side/Bed(QC): 6 (met) Sit to Stand (QC): 6 (met) Chair/Ntt-fo-Bxrue Xfer(QC): 6 (met) Car Transfer (QC): 6 (met) Gait (FIM): 6 (met) Distance: 400' Walk 10 feet (QC): 6 (met) Walk 10ft-Uneven Surface(QC): 6 (met) Walk 50ft with 2 Turns (QC): 6 (met) Walk 150 ft (QC): 6 (met) Gait Level of Assist: 6 (met) Gait Assistive Device: Walker 4 Wheeled Stairs (FIM): 5 (met) # of Steps: 12 (met) 1 Step (curb) (QC): 4 (met) 4 Steps (QC): 4 (met) 12 Steps (QC): 4 (met) Stairs Level Of Assist: 5 (met) Picking up an Object (QC): 4 (met) OT [facility] Goals [place] Goals Time Frame: Jun 21, 2017 Eating (FIM): 6 Eating (QC): 6 Oral Hygiene (QC): 6 Grooming(FIM): 6 Bathing(FIM): 5 Shower/Bathe Self (QC): 4 Upper Body Dressing(FIM): 5 Upper Body Dressing (QC): 4 Lower Body Dressing(FIM): 5 Lower Body Dressing (QC): 4 On/Off Footwear (QC): 4 Toileting(FIM): 6 Toileting Hygiene (QC): 6 Transfers (B,C,W/C) (FIM): 6 Toilet/Commode Transfer(FIM): 6 Toilet/Commode Transfer (QC): 6 Shower Transfer(FIM): 5 Comprehension(FIM): 5 (MET) Expression (FIM): 4 (MET) Social Interaction(FIM): 6 (MET) Problem Solving(FIM): 6 (MET) Memory(FIM): 6 (MET) Additional Goals: 1-Demonstrate ADL Tasks, 2-Verbalize Understanding, 3- ImproveStrength/Azucena 1=Demonstrate adherence to instructed precautions during ADL tasks. 2=Patient will verbalize/demonstrate understanding of assistive devices/ modifications for ADL. 3=Patient will improve strength/tolerance for activity to enable patient to perform ADL's. Speech [facility] Goals [facility] Goals 1. The patient will display improved conversational volumes for increased safety and function. Time Frame: Two Weeks Comprehension: 5 (MET) Expression: 4 (MET) Social Interaction: 6 (MET) Problem Solvin (MET) Memory: 6 (MET) ABDIFATAH WILLIS PT Jun 13, 2017 11:49
[2017-06-13 13:45] VITALS: BP 122/69
--- NOTE | 2017-06-13 13:48 | Occupational Ther Daily Note ---
OT Current Status-Daily Note Subjective No pain reported. Appearance Pt. up in chair. Agrees to shower. Mental Status/Objective Patient Orientation: Person, Place Functional [place] Measure 0=Not Assessed/NA 4=Minimal Assistance 1=Total Assistance 5=Supervision or Setup 2=Maximal Assistance 6=Modified [place] 3=Moderate Assistance 7=Complete [place] ADL-Treatment Functional [place] Measure 0=Not Assessed/NA 4=Minimal Assistance 1=Total Assistance 5=Supervision or Setup 2=Maximal Assistance 6=Modified [place] 3=Moderate Assistance 7=Complete IndependenceIRFPAI Quality Coding Scale 6 Independent with activity with or without an assistive device 5 Patient requires set up or clean up by helper. Patient completes activity by themselves 4 Supervision or touching assist (CGA). [place] provide cues , steadying assist 3 The helper provides less than half the effort to complete the activity 2 The helper provides more than half the effort to complete the activity 1 Dependent. The helper does all the effort to complete an activity 7 Patient refused to complete or attempt activity 9 The patient did not perform the activity before the current illness or injury 88 Not attempted due to Medical conditions or safety concerns Grooming (FIM): 5 (SBA to stand at sink and brush teeth and hair.) Oral Hygiene (QC): 4 Bathing (FIM): 5 (SBA in shower to wash all parts. Pt. sat on shower bench.) Shower/Bathe Self (QC): 4 Upper Body (FIM): 4 (Min assist to get arm into sleeve.) Upper Body Dressing (QC): 4 Lower Body Dressing (FIM): 5 (SBA and increased time needed to don brief, pants , socks and shoes.) Lower Body Dressing (QC): 4 On/Off Footwear (QC): 4 Toileting (FIM): 5 Toileting Hygiene (QC): 4 Transfers (B, C, W/C) (FIM): 5 Toilet/Commode Transfer (FIM): 5 Toilet Transfer (QC): 4 Shower Transfer(FIM): 5 Education OT Patient Education: Correct positioning, Modified ADL techniques, Progress toward Goal/Update tx plan, Purpose of tx/functional activities, Reviewed precautions, Rehab process, Transfer techniques Teaching Recipient: Patient Teaching Methods: Demonstration, Discussion Response to Teaching: Verbalize Understanding, Return Demonstration OT Short Term Goals Short Term Goals Time Frame: Jun 14, 2017 Eating(FIM): 5 Grooming(FIM): 5 Bathing(FIM): 5 Upper Body Dressing(FIM): 4 Lower Body Dressing(FIM): 5 Toileting(FIM): 4 Transfers (B,C,W/C) (FIM): 5 Toilet/Commode Transfer(FIM): 5 Shower Transfer(FIM): 4 Additional Short Term Goals: 1-Demonstrate ADL Tasks, 2-Verbalize Understanding , 3-ImproveStrength/Azucena 1=Demonstrate adherence to instructed precautions during ADL tasks. 2=Patient will verbalize/demonstrate understanding of assistive devices/ modifications for ADL. 3=Patient will improve strength/tolerance for activity to enable patient to perform ADL's. OT Long-Term Goals Long-Term Goals Time Frame: Jun 21, 2017 Eating (FIM): 6 Eating (QC): 6 Groomin Oral Hygiene (QC): 6 Bathing(FIM): 5 Shower/Bathe Self (QC): 4 Upper Body Dressing(FIM): 5 Upper Body Dressing (QC): 4 Lower Body Dressing(FIM): 5 Lower Body Dressing (QC): 4 On/Off Footwear (QC): 4 Toileting(FIM): 6 Toileting Hygiene (QC): 6 Transfers (B,C,W/C) (FIM): 6 Toilet/Commode Transfer(FIM): 6 Toilet/Commode Transfer (QC): 6 Shower Transfer(FIM): 5 Comprehension(FIM): 5 (MET) Expression (FIM): 4 (MET) Social Interaction(FIM): 6 (MET) Problem Solving(FIM): 6 (MET) Memory(FIM): 6 (MET) Additional Goals: 1-Demonstrate ADL Tasks, 2-Verbalize Understanding, 3- ImproveStrength/Azucena 1=Demonstrate adherence to instructed precautions during ADL tasks. 2=Patient will verbalize/demonstrate understanding of assistive devices/ modifications for ADL. 3=Patient will improve strength/tolerance for activity to enable patient to perform ADL's. OT Education/Plan Discharge Recommendations Plan/Recommendations: Discharge/Goals Met Therapy D/C Recommendations: Home w/ Family Support Treatment Plan/Plan of Care Treatment,Training & Education: Yes Patient would benefit from OT for education, treatment and training to promote independence in ADL's, mobility, safety and/or upper extremity function for ADL' s. Plan of Care: ADL Retraining, Functional Mobility, Group Exercise/Act as Ind, UE Funct Exercise/Act Treatment Duration: Jun 21, 2017 Frequency: At least 5 of 7 days/Wk (IRF) Estimated Hrs Per Day: 1.5 hours per day Agreement: Yes Rehab Potential: Good Time/GCodes Start Time: 09:45 Stop Time: 10:15 Total Time Billed (hr/min): 30 Billed Treatment Time 1, ADL x 2 ZACHERY WHITAKER OT Jun 13, 2017 13:48
--- NOTE | 2017-06-13 13:51 | Therapy Team Discharge Summary ---
Therapy Discharge Summary Discharge Recommendations Date of Discharge 06-13-17 Therapy D/C Recommendations: Home w/ Family Support Occupational Therapy Pt. has been seen by occupational therapy to increase overall strength and independence with daily tasks. Pt. has met some goals, but still requires SBA/ min assist with most ADLs. Pt. is discharging home with family support and spouse. Pt. is receiving a new walker, but otherwise, has all needed equipment. Decreased Activ Tolerance, Impaired I ADL's, Impaired Self-Care Skills PT Detention Goals [employer] Employee Goals PT [employer] Goals Time Frame: Jun 28, 2017 Transfers (B,C,W/C) (FIM): 6 (met) Roll Left to Right (QC): 6 (met) Sit to Lying (QC): 6 (met) Lying-Sitting on Side/Bed(QC): 6 (met) Sit to Stand (QC): 6 (met) Chair/Agn-bj-Weamg Xfer(QC): 6 (met) Car Transfer (QC): 6 (met) Gait (FIM): 6 (met) Distance: 400' Walk 10 feet (QC): 6 (met) Walk 10ft-Uneven Surface(QC): 6 (met) Walk 50ft with 2 Turns (QC): 6 (met) Walk 150 ft (QC): 6 (met) Gait Level of Assist: 6 (met) Gait Assistive Device: Walker 4 Wheeled Stairs (FIM): 5 (met) # of Steps: 12 (met) 1 Step (curb) (QC): 4 (met) 4 Steps (QC): 4 (met) 12 Steps (QC): 4 (met) Stairs Level Of Assist: 5 (met) Picking up an Object (QC): 4 (met) OT [employer] Employee Goals [employer] Employee Goals Time Frame: Jun 21, 2017 Eating (FIM): 6 (not met set up) Eating (QC): 6 (not met) Oral Hygiene (QC): 6 (not met) Grooming(FIM): 6 (not met, SBA) Bathing(FIM): 5 (met) Shower/Bathe Self (QC): 4 (met) Upper Body Dressing(FIM): 5 (not met) Upper Body Dressing (QC): 4 (met) Lower Body Dressing(FIM): 5 (met) Lower Body Dressing (QC): 4 (met) On/Off Footwear (QC): 4 (met) Toileting(FIM): 6 (not met) Toileting Hygiene (QC): 6 (not met) Transfers (B,C,W/C) (FIM): 6 (not met) Toilet/Commode Transfer(FIM): 6 (not met) Toilet/Commode Transfer (QC): 6 (not met) Shower Transfer(FIM): 5 (met) Comprehension(FIM): 5 (MET) Expression (FIM): 4 (MET) Social Interaction(FIM): 6 (MET) Problem Solving(FIM): 6 (MET) Memory(FIM): 6 (MET) Additional Goals: 1-Demonstrate ADL Tasks, 2-Verbalize Understanding, 3- ImproveStrength/Azucena 1=Demonstrate adherence to instructed precautions during ADL tasks. 2=Patient will verbalize/demonstrate understanding of assistive devices/ modifications for ADL. 3=Patient will improve strength/tolerance for activity to enable patient to perform ADL's. Speech [employer] Employee Goals Detention Goals 1. The patient will display improved conversational volumes for increased safety and function. Time Frame: Two Weeks Comprehension: 5 (MET) Expression: 4 (MET) Social Interaction: 6 (MET) Problem Solvin (MET) Memory: 6 (MET) ZACHERY WHITAKER OT Jun 13, 2017 13:51
--- NOTE | 2017-06-13 17:31 | PM & R (SOAP) Progress Note ---
Subjective Time Seen by Provider: 12:00 Subjective/Events-last exam Patient discharged to home with [facility] and spouse Has progressed well Current meds reviewed F/U with PCP See orders Objective Exam Last Set of Vital Signs Vital Signs Date Time Temp Pulse Resp B/P (MAP) Pulse Ox O2 Delivery O2 Flow Rate FiO2 06/13/17 13:45 88 18 122/69 97 Room Air 06/13/17 09:44 98.3 06/12/17 06:06 2.00 Capillary Refill : Less Than 3 Seconds I&O Intake and Output 06/13/17 00:00 Intake Total 1190 ml Balance 1190 ml Intake Oral 1190 ml # Voids 9 # Bowel Movements 1 General: Alert, Oriented X3, Cooperative, No Acute Distress HEENT: Atraumatic, PERRLA, EOMI, Mucous Memb Moist/[place] Neck: Supple, No JVD Lungs: Clear to Auscultation Heart: Regular Rate Abdomen: Normal Bowel Sounds, Soft, No Tenderness Extremities: No Edema Neuro: Other (genralized weakness slow gait dysphonia) Assessment/Plan Assessment Progressive [place] D with gait imbalance and dysphonia HTN Recent falls Plan F/U with DR Bonds Discharge to home today with spouse, ,daughter and C Current meds reviewed ELOISE STARKS MD Jun 13, 2017 17:31
== END 2017-06-13 13:45 | disposition home health service (06) | DRG 57 ==
PROVIDERS: ADMIT Physical Medicine & Rehabilitation; ATTEND Physical Medicine & Rehabilitation
DX: G20 Parkinson's disease (principal); R29.6 Repeated falls; R49.0 Dysphonia; I12.9 Hypertensive chronic kidney disease with stage 1 through stage 4 chronic kidney disease, or unspecified chronic kidney disease; N18.3 Chronic kidney disease, stage 3 (moderate); F41.1 Generalized anxiety disorder; I42.9 Cardiomyopathy, unspecified; J44.9 Chronic obstructive pulmonary disease, unspecified; Z66 Do not resuscitate; K21.9 Gastro-esophageal reflux disease without esophagitis; E78.00 Pure hypercholesterolemia, unspecified; E78.5 Hyperlipidemia, unspecified; Z85.038 Personal history of other malignant neoplasm of large intestine; Z85.3 Personal history of malignant neoplasm of breast
CPT/HCPCS: 36415; 80053; 85027

== ENCOUNTER 2017-08-29 10:21 | Outpatient (RCR) | payer MEDICARE, OTHER ==
[2017-08-24 14:49] LABS: BASOPHILS % (AUTO) 0 % (0-10); EOSINOPHILS # (AUTO) 0.1 10^3/uL (0.0-0.3); EOSINOPHILS % (AUTO) 1 % (0-10); HEMATOCRIT 41 % (35-52); HEMOGLOBIN 12.8 G/DL (11.5-16.0); LYMPHOCYTES # (AUTO) 0.7 X 10^3 (1.0-4.0); LYMPHOCYTES % (AUTO) 12 % (12-44); MEAN CORPUSCULAR HEMOGLOBIN 28 PG (25-34); MEAN CORPUSCULAR HGB CONC 31 G/DL (32-36); MEAN CORPUSCULAR VOLUME 90 FL (80-99); MEAN PLATELET VOLUME 9.9 FL (7.4-10.4); MONOCYTES # (AUTO) 0.5 X 10^3 (0.0-1.0); MONOCYTES % (AUTO) 9 % (0-12); NEUTROPHILS # (AUTO) 4.5 X 10^3 (1.8-7.8); NEUTROPHILS % (AUTO) 78 % (42-75); PLATELET COUNT 150 10^3/uL (130-400); RED BLOOD COUNT 4.54 10^6/uL (4.35-5.85); RED CELL DISTRIBUTION WIDTH 14.3 % (10.0-14.5); WHITE BLOOD COUNT 5.8 10^3/uL (4.3-11.0)
[2017-08-24 15:16] LABS: ALBUMIN 3.8 GM/DL (3.2-4.5); BILIRUBIN,TOTAL 0.7 MG/DL (0.1-1.0); CALCIUM 9.5 MG/DL (8.5-10.1); CREATININE SERUM 0.9 MG/DL (0.60-1.30); POTASSIUM 4.2 MMOL/L (3.6-5.0); TOTAL PROTEIN 6.4 GM/DL (6.4-8.2)
[~2017-08-29 10:21] MED LIST changes: +ALPR0.25 PO; +FURO20TA4 PO; +POTA20TA15 PO; +RASA1TAB4 PO; +SPIR25TA3 PO
== END 2017-09-01 09:12 | disposition home or self-care (01) ==
LOC: ONC 10:21
PROVIDERS: ATTEND Internal Medicine Hematology & Oncology
DX: Z08 Encounter for follow-up examination after completed treatment for malignant neoplasm (principal); Z85.038 Personal history of other malignant neoplasm of large intestine; Z85.3 Personal history of malignant neoplasm of breast; G20 Parkinson's disease; Z79.899 Other long term (current) drug therapy
CPT/HCPCS: 36415; 80053; 82378; 85025; 99213

== ENCOUNTER 2017-09-13 17:42 | Inpatient (IN) | payer MEDICARE, OTHER ==
[~2017-09-13] VITALS: Ht 175.3 cm; Wt 61.7 kg
[~2017-09-13 17:42] MED LIST changes: -SPIR25TA3 PO; +SPIR25TA5 PO
--- OUTSIDE RECORDS SUMMARY | 2017-09-13 17:47 | XMS REPORT | Clinical Summary ---
Author Author [facility] Organization [facility] Address Unknown Phone Unavailable Care Team Providers Care Professional Benefits Sales Consultant Name Role Phone Suzanne Mcadams MD Unavailable Tiago Rodrigues [facility] Unavailable Rah Cruz MD Unavailable Jazz Bonds MD PCP Source Comments Some departments are not documenting in the electronic medical record. If you do not see the information that you expected, contact Release of Information in the Health Information Management department at [phone] for further assistance in locating additional records.[facility] Allergies Active Allergy Reactions Severity Noted Date Comments Penicillin G RASH Medium 07/09/2014 Current Medications Prescription Sig. Disp. Refills Start End Date Status Date omeprazole DR(+) Take 1 Cap by mouth 90 Cap 3 10/13/19 Active (PRILOSEC) 20 mg daily. 14 capsuleIndications: Reflux aspirin EC 81 mg tablet Take 81 mg by mouth. (on Active Tue//Tue) other medication Take 1 Dose by mouth at Active bedtime daily. Patient is on (Oxygen 2.0ml), Herba life Tea, VIBE Vitamin and Mineral Drink ERGOCALCIFEROL (VITAMIN Take by mouth every 7 Active D2) (VITAMIN D PO) days. sertraline (ZOLOFT) 50 mg Take 1 Tab by mouth 90 Tab 0 11/27/19 Active tablet daily. 16 metoprolol tartrate Take 12.5 mg by mouth Active (LOPRESSOR) 25 mg tablet twice daily. FUROSEMIDE (LASIX PO) Take by mouth. (on Active //Sat) potassium On //Sat Active rasagiline(+) (AZILECT) 1 Take 1 Tab by mouth 90 Tab 3 08/20/19 Active mg tablet daily. 17 spironolactone 05/27/19 Active (ALDACTONE) 25 mg tablet 18 ALPRAZolam (XANAX) 0.25 Take 0.25 mg by mouth at Active mg tabletIndications: bedtime as needed for anxiety Anxiety. 1/2 tab as need for anxiety vit A/vit C/vit Take by mouth. Active E/zinc/copper (PRESERVISION AREDS PO) CALCIUM PO Take by mouth. Active vitamins, B complex tab Take 1 tablet by mouth Active daily. carbidopa/levodopa 2 tab at breakfast, 3 630 tablet 3 09/06/19 Active (SINEMET) 25/100 mg tabs at lunch, 2 tabs at 18 tabletIndications: bedtime Primary Parkinsonism (HCC) tolterodine LA(+) (DETROL Take 1 capsule by mouth 30 capsule 5 Active LA) 4 mg capsule daily. 18 MULTIVITAMIN PO Take by mouth. vibe 09/06/19 Discontin 18 ued fluticasone-vilanterol Inhale by mouth twice 09/06/19 Discontin (BREO ELLIPTA) 100-25 daily as needed. 18 ued mcg/dose dsdv ALBUTEROL SULFATE Inhale by mouth four 09/06/19 Discontin (VENTOLIN HFA IN) times daily as needed. 18 ued LISINOPRIL PO Take by mouth daily. 09/06/19 Discontin 18 ued carbidopa/levodopa 2 tab, 3 tabs, 2 tabs. 630 tablet 3 07/14/19 Discontin (SINEMET) 25/100 mg 18 18 ued tablet Active Problems Problem Noted Date Depression 04/28/2015 Overview: On Zoloft (sertraline) 09/05/2017 Geriatric Depression Scale: 4 L ast Assessment & Plan: Her symptoms [...] was evaluated by Occupational Therapist, Capri Aiken. 09/05/2017 PDQ8 Total %: 41 L ast Assessment & Plan: Her symptoms are stable. No medication changes were recommended during the current visit. Cognitive changes 07/09/2014 Overview: 07/14/2014 MOCA Score (out of 30): 22 L ast Assessment & Plan: She denies any cognitive problems. Insomnia 07/09/2014 Last Assessment & Plan: Hopefully Detrol (tolterodine) will help. Anxiety 07/09/2014 Overview: 07/14/2014 On Zoloft (sertraline) L ast Assessment & Plan: Her symptoms are improved since last visit. Frozen shoulder 07/09/2014 Last Assessment & Plan: I recommended Physical Therapy. Hypophonia 10/12/2013 Gait instability 06/08/2013 Encounters Date Type Specialty Care Team Description 09/05/2017 Office Visit Neurology Rah Cruz MD Primary Parkinsonism (HCC) (Primary Dx); Cognitive changes; Other depression; RLS (restless legs syndrome); Other insomnia 07/13/2017 Refill Neurology Rah Cruz MD from Last 3 Months Family History Medical History Relation Name Comments Cancer Father Parkinson's Father Cancer Mother Hypertension Mother Stroke Mother Dementia Other Aunt Parkinson's Other Aunt Tremor Neg Hx Relation Name Status Comments Father Mother Other Aunt Alive Social History Tobacco Use Types Packs/Day Years Used Date Never Smoker Smokeless Tobacco: Never Used Alcohol Use Drinks/Week oz/Week Comments No Sex Assigned at Date Recorded Not on file Last Filed Vital Signs Vital Sign Reading Time Taken Blood Pressure 123/76 09/05/2017 12:10 PM CDT Pulse 90 09/05/2017 12:10 PM CDT Temperature 36.4 C (97.6 F) 05/20/2014 10:50 AM CDT Respiratory Rate - - Oxygen Saturation 99% 05/20/2014 10:50 AM CDT Inhaled Oxygen - - Concentration Weight 58 kg (127 lb 12.8 oz) 09/05/2017 12:08 PM CDT Height 172.7 cm (5' 8") 09/05/2017 12:08 PM CDT Body Mass Index 19.43 09/05/2017 12:08 PM CDT Plan of Treatment Health Maintenance Due Date Last Done Comments PHYSICAL (COMPREHENSIVE) 1942 EXAM PERTUSSIS VACCINE 1946 TETANUS VACCINE 01/07/1952 SHINGLES RECOMBINANT 1985 VACCINE (1 of 2) OSTEOPOROSIS SCREENING 01/07/2000 PNEUMONIA (PCV13/PPSV23) 01/07/2000 VACCINES (1 of 2 - PCV13) INFLUENZA VACCINE 12/12/2017 12/13/2016, 03/19/2016 Results Not on filefrom Last 3 Months
--- OUTSIDE RECORDS SUMMARY | 2017-09-13 17:48 | XMS REPORT | Encounter Summary ---
Author Author [facility] Organization [facility] Address Unknown Phone Unavailable Care Team Providers Care Fountain Roller Assembler Name Role Phone Suzanne Mcadams MD Unavailable Tiago RodriguesW Unavailable Rah Cruz MD Unavailable Jazz Bonds MD PCP Reason for Referral * Consult, Test & Treat Status Reason Specialty Diagnoses / Referred By Referred To Procedures Contact Contact Closed Specialty Diagnoses Rah Cruz, Services Primary MD Required Parkinsonism [address] [place] [address] Reason for Visit * Reason Comments Parkinsonism w/ daughter Encounter Details Date Type Department Care Team Description 09/05/2017 Office Visit [facility] Rah Cruz MD Primary Parkinsonism Physicians-Neurology [address] (Primary Dx); [facility] [address] Cognitive changes; [address] [place] [address] Other depression; [place], [place] [phone] RLS (restless legs [id number] syndrome); [phone] Other insomnia Social History Tobacco Use Types Packs/Day Years Used Date Never Smoker Smokeless Tobacco: Never Used Alcohol Use Drinks/Week oz/Week Comments No Sex Assigned at Date Recorded Not on file as of this encounter Last Filed Vital Signs Vital Sign Reading Time Taken Blood Pressure 123/76 09/05/2017 12:10 PM CDT Pulse 90 09/05/2017 12:10 PM CDT Temperature - - Respiratory Rate - - Oxygen Saturation - - Inhaled Oxygen - - Concentration Weight 58 kg (127 lb 12.8 oz) 09/05/2017 12:08 PM CDT Height 172.7 cm (5' 8") 09/05/2017 12:08 PM CDT Body Mass Index 19.43 09/05/2017 12:08 PM CDT in this encounter Functional Status Functional Status Response Date of Assessment Does the patient have a hearing impairment: No 07/09/2014 Does the patient have a visual impairment: Yes 07/09/2014 Does the patient have impaired ambulation: Yes 07/09/2014 Does the patient have an activity of daily living Yes 07/09/2014 (ADL) impairment: Does the patient have an instrumental activity of No 07/09/2014 daily living (IADL) impairment: Cognitive Status Response Date of Assessment Does the patient have a cognitive impairment: No 07/09/2014 as of this encounter Instructions * Patient Instructions - Rah Cruz MD - 09/05/2017 11:45 AM CDT . You were prescribed Detrol (tolterodine) 4 mg a day for urinary problems. Common Side Effects As with all medications, there are potential side effects that may occur. Common side effects include sleepiness, dry mouth, headache, constipation and abdominal pain. Rarely patients can have urinary retention. Please call [phone] if you have any questions or side effects. Please contact me through your smart phone with [employer] or go on line at [employer] You will need to register. in this encounter Progress Notes * Rah Cruz MD - 09/05/2017 11:45 AM CDT Formatting of this note may be different from the original. Date of Service: 09/05/2017 Subjective: Nola Pro is a 82 y.o. female. History of Present Illness Parkinson's Disease Follow-Up Visit Since my last visit I am: Unchanged Symptoms Scale: Memory problems: None Hallucinations/delusions: None Depression: None Anxiety: Slight, not bothersome Apathy: Slight, some loss of interest Impulsive behavior: None Nighttime sleep: Mild, wake up to go to bathroom Daytime sleepiness: Slight, occasionally Vivid dreams: None REM sleep behavior disorder: Slight, rarely Restless leg syndrome: Marked, frequently affects sleeping Pain or muscle cramps: Mild, muscle or joint pain need medications Urination: Slight, go frequently, not bothersome Constipation: Slight, occasionally Dizziness or lightheadedness: Slight, occasional on standing Tiredness/Fatigue: Slight, reduced stamina Falling: Slight, rarely during the year Personal care assistance: Mild, I have some difficulty and occasionally need help, but don't need help daily or regularly Total Score: Total Score: 19 Assistive Devices: Assistive devices for getting around: Walker OFF Time: OFF time: No Dyskinesia: Dyskinesia while awake: No Employment Status: Employment: Retired - not due to PD Review of Systems Gastrointestinal: Negative. Genitourinary: Positive for urgency. Negative for decreased urine volume, difficulty urinating, dyspareunia, dysuria, enuresis, flank pain, frequency, genital sores, hematuria, menstrual problem, pelvic pain, vaginal bleeding, vaginal discharge and vaginal pain. Objective: ALPRAZolam (XANAX) 0.25 mg tablet Take 0.25 mg by mouth at bedtime as needed for Anxiety. 1/2 tab as need for anxiety aspirin EC 81 mg tablet Take 81 mg by mouth. (on Tue//Tue) CALCIUM PO Take by mouth. carbidopa/levodopa (SINEMET) 25/100 mg tablet 2 tab at breakfast, 3 tabs at lunch, 2 tabs at bedtime ERGOCALCIFEROL (VITAMIN D2) (VITAMIN D PO) Take by mouth every 7 days. FUROSEMIDE (LASIX PO) Take by mouth. (on //Tue) metoprolol tartrate (LOPRESSOR) 25 mg tablet Take 12.5 mg by mouth twice daily. omeprazole DR(+) (PRILOSEC) 20 mg capsule Take 1 Cap by mouth daily. ( Patient taking differently: Take 20 mg by mouth as Needed.) other medication Take 1 Dose by mouth at bedtime daily. Patient is on ( Oxygen 2.0ml), Herba life Tea, VIBE Vitamin and Mineral Drink potassium On //Tue rasagiline(+) (AZILECT) 1 mg tablet Take 1 Tab by mouth daily. sertraline (ZOLOFT) 50 mg tablet Take 1 Tab by mouth daily. spironolactone (ALDACTONE) 25 mg tablet tolterodine LA(+) (DETROL LA) 4 mg capsule Take 1 capsule by mouth daily. vit A/vit C/vit E/zinc/copper (PRESERVISION AREDS PO) Take by mouth. vitamins, B complex tab Take 1 tablet by mouth daily. Vitals: 09/05/17 1208 09/05/17 1210 BP: 125/79 123/76 Pulse: 94 90 Weight: 58 kg (127 lb 12.8 oz) Height: 172.7 cm (68") Body mass index is 19.43 kg/m. Physical Exam EXAMINATION: On oxygen (nasal) ORIENTATION: Alert and Oriented. Cranial Nerves: II-XII Unremarkable except reduced facial expression and soft voice. Right Left Bradkinesia Mild Mild Tremor Hands Resting None None Postural None None Kinetic None None Tremor Other: None Dyskinesia: Slight Muscle Strength: Unremarkable Gait: Uses walker to ambulate Needs to push to stand up from chair PDQ8 - Quality of Life Had difficulty getting around in public places?: Always Had difficulty dressing?: Occasionally [place] depressed?: Never Had problems with your close personal relationships?: Occasionally Had problems with your concentration, for example, when reading or watching TV? : Occasionally [place] unable to communicate effectively?: Occasionally Had painful muscle cramps or spasms?: Often [place] embarrassed in public due to having Parkinson's disease?: Sometimes PDQ8 Total Score (32 Possible): 13 PDQ8 Total %: 41 Geriatric Depression Scale: 4 suggesting no depression Assessment and Plan: Problem Parkinsonism (Hcc) Symptoms began in 2009, initial symptoms was [...] Capri Aiken. 09/05/2017 PDQ8 Total %: 41 Depression On Zoloft (sertraline) 09/05/2017 Geriatric Depression Scale: 4 Rls (Restless Legs Syndrome) Cognitive changes 07/14/2014 MOCA Score (out of 30): 22 Insomnia Parkinsonism (HCC) Her symptoms are stable. No medication changes were recommended during the current visit. RLS (restless legs syndrome) Her symptoms are stable. No medication changes were recommended during the current visit. Insomnia Hopefully Detrol (tolterodine) will help. Depression Her symptoms are stable. No medication changes were recommended during the current visit. Cognitive changes She denies any cognitive problems. Patient will follow up in approximately 6 months. in this encounter Miscellaneous Notes * Assessment & Plan Note - Rah Cruz MD - 09/05/2017 1:03 PM CDT Associated Problem(s): Cognitive changes She denies any cognitive problems. * Assessment & Plan Note - Rah Cruz MD - 09/05/2017 1:03 PM CDT Associated Problem(s): Depression Her symptoms are stable. No medication changes were recommended during the current visit. * Assessment & Plan Note - Rah Cruz MD - 09/05/2017 1:02 PM CDT Associated Problem(s): Insomnia Hopefully Detrol (tolterodine) will help. * Assessment & Plan Note - Rah Cruz MD - 09/05/2017 1:02 PM CDT Associated Problem(s): RLS (restless legs syndrome) Her symptoms are stable. No medication changes were recommended during the current visit. * Assessment & Plan Note - Rah Cruz MD - 09/05/2017 1:02 PM CDT Associated Problem(s): Parkinsonism (HCC) Her symptoms are stable. No medication changes were recommended during the current visit. in this encounter Plan of Treatment Name Priority Associated Diagnoses Order Schedule AMB REFERRAL TO [facility] Routine Primary Parkinsonism Ordered: (HCC) as of this encounter Visit Diagnoses Diagnosis Primary Parkinsonism (HCC) - Primary Paralysis agitans Cognitive changes Other signs and symptoms involving cognition Other depression RLS (restless legs syndrome) Restless legs syndrome (RLS) Other insomnia
--- OUTSIDE RECORDS SUMMARY | 2017-09-13 17:48 | XMS REPORT | Encounter Summary ---
Author Author [facility] Organization [facility] Address Unknown Phone Unavailable Care Team Providers Care Service Plumber Name Role Phone Suzanne Mcadams MD Unavailable Tiago RodriguesW Unavailable Rah Cruz MD Unavailable Jazz Bonds MD PCP Reason for Visit * Reason Comments Medication Refill Encounter Details Date Type Department Care Team Description 07/13/2017 Refill [facility] Rah Cruz MD Physicians-Neurology [address] [facility] [address] [place] [address] [place] [phone] [id number] [phone] Social History Tobacco Use Types Packs/Day Years Used Date Never Smoker Smokeless Tobacco: Never Used Alcohol Use Drinks/Week oz/Week Comments No Sex Assigned at Date Recorded Not on file as of this encounter Functional Status Functional Status Response [...] impairment: No 07/09/2014 as of this encounter Miscellaneous Notes * Telephone Encounter - Heidy Judge LPN - 07/13/2017 8:06 AM CDT [facility] pharmacy requesting rx refill. Telephone order received by Dr. Rah Cruz MD carbidopa/levodopa (SINEMET) 25/100 mg tablet Si tab, 3 tabs, 2 tabs. #630 x 3 refills in this encounter Plan of Treatment Not on fileas of this encounter Visit Diagnoses Not on filein this encounter
--- OUTSIDE RECORDS SUMMARY | 2017-09-13 17:51 | XMS REPORT | CCD ---
Author Author Josefa Gardner MD, [facility] Address [address] [place] [address] Phone Care Team Providers Care File System Installer Name Role Phone PP Unavailable CCM Unavailable Summary Purpose Interface Exchange Insurance Providers Payer name Policy type / Coverage type Covered green party ID Effective Begin Date Effective End Date WPS Medicare Part B Medicare Part B [id number] Unknown Unknown [employer] Medicare Part B [id number] Unknown Unknown Family history Mother Diagnosis Age At Onset Cancer Unknown Hypertension Unknown Heart Attack Unknown Hyperlipidemia Unknown Father Diagnosis Age At Onset Stroke Unknown Social History Social History Element Codes Description Effective Dates Marital status Unknown Bo 04/13/2016 Number of children Unknown 5 08/20/2014 Employment Unknown Retired 08/20/[address]: 516818795 Never smoker 08/20/[address]: 045330338 Never drinks alcohol 08/20/2014 Allergies, Adverse Reactions, Alerts Substance Reaction Codes Entered Date Inactivated Date Status Penicillin rash Unknown 08/20/2014 No Inactive Date Active Past Medical History Illness Codes Condition Status Onset Date Resolved Date Essential (primary) hypertension ICD-9: 401.1 ICD-10: I10 Active 04/13/2016 Unknown Muscle weakness (generalized) ICD-9: 728.87 ICD-10: M62.81 Active 02/15/2017 Unknown Parkinson's disease ICD-9: 332.0 ICD-10: G20 Active 03/22/2016 Unknown Shortness of breath ICD-9: 786.05 ICD-10: R06.02 Active 03/22/2016 Unknown Vitamin D deficiency, unspecified ICD-9: 268.9 ICD-10: E55.9 Active 08/19/2014 Unknown Localized enlarged lymph nodes ICD-9: 785.6 ICD-10: R59.0 Active 02/15/2017 Unknown 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 ICD-10: I50.42 Active 09/06/2016 Unknown Chronic obstructive pulmonary disease, unspecified ICD-9: 496 ICD-10: J44.9 Active 11/16/2016 Unknown Hypoxemia ICD-9: 799.02 ICD-10: R09.02 Active 02/01/2017 Unknown Encounter for general adult medical examination with abnormal findings ICD-9: V70.0 ICD-10: Z00.01 Active 01/07/2017 Unknown Encounter for immunization ICD-9: V04.81 ICD-10: Z23 Active 12/13/2016 Unknown Major depressive disorder, recurrent, mild ICD-9: 296.31 ICD-10: F33.0 Active 01/12/2016 Unknown Gastro-esophageal reflux disease without esophagitis ICD-9: 530.81 ICD-10: K21.9 Active 09/06/2016 Unknown Dehydration ICD-9: 276.51 ICD-10: E86.0 Active 09/16/2016 Unknown Acute combined systolic (congestive) and diastolic ( congestive) heart failure ICD-9: 428.41 ICD-10: I50.41 Active 03/22/2016 Unknown Chronic obstructive pulmonary disease with acute lower respiratory infection ICD-9: 496 ICD-10: J44.0 Active 08/19/2014 Unknown Other forms of dyspnea ICD-9: 786.09 ICD-10: R06.09 Active 01/12/2016 Unknown Pain in right shoulder ICD-9: 719.41 ICD-10: M25.511 Active 08/03/2015 Unknown Lesion of ear ICD-9: 380.89 Active 09/11/2014 Unknown Bilateral leg cramps ICD-9: 729.82 Active 08/19/2014 Unknown COPD (chronic obstructive pulmonary disease) ICD-9: 496 Active 08/19/2014 Unknown Parkinsons disease ICD -9: 332.0 Active 08/19/2014 Unknown SHORTNESS OF BREATH ICD-9: 786.05 Active 08/19/2014 Unknown VITAMIN D DEFICIENCY ICD-9: 268.9 Active 08/19/2014 Unknown Problems Condition Codes Effective Dates Condition Status Essential (primary) hypertension ICD-9: 401.1 ICD-10: I10 04/13/2016 Active Muscle weakness (generalized) ICD-9: 728.87 ICD-10: M62.81 02/15/2017 Active Parkinson's disease ICD-9: 332.0 ICD-10: G20 03/22/2016 Active Shortness of breath ICD-9: 786.05 ICD-10: R06.02 03/22/2016 Active Vitamin D deficiency, unspecified ICD-9: 268.9 ICD-10: E55.9 08/19/2014 Active Localized enlarged lymph nodes ICD-9: 785.6 ICD-10: R59.0 02/15/2017 Active 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 ICD-10: I50.42 09/06/2016 Active Chronic obstructive pulmonary disease, unspecified ICD-9: 496 ICD-10: J44.9 11/16/2016 Active Hypoxemia ICD-9: 799.02 ICD-10: R09.02 02/01/2017 Active Encounter for general adult medical examination with abnormal findings ICD-9: V70.0 ICD-10: Z00.01 01/07/2017 Active Encounter for immunization ICD-9: V04.81 ICD-10: Z23 12/13/2016 Active Major depressive disorder, recurrent, mild ICD-9: 296.31 ICD-10: F33.0 01/12/2016 Active Gastro-esophageal reflux disease without esophagitis ICD-9: 530.81 ICD-10: K21.9 09/06/2016 Active Dehydration ICD-9: 276.51 ICD-10: E86.0 09/16/2016 Active Acute combined systolic (congestive) and diastolic ( congestive) heart failure ICD-9: 428.41 ICD-10: I50.41 03/22/2016 Active Chronic obstructive pulmonary disease with acute lower respiratory infection ICD-9: 496 ICD-10: J44.0 08/19/2014 Active Other forms of dyspnea ICD-9: 786.09 ICD-10: R06.09 01/12/2016 Active Pain in right shoulder ICD-9: 719.41 ICD-10: M25.511 08/03/2015 Active Lesion of ear ICD-9: 380.89 09/11/2014 Active Bilateral leg cramps ICD-9: 729.82 08/19/2014 Active COPD (chronic obstructive pulmonary disease) ICD-9: 496 08/19/2014 Active Parkinsons disease ICD -9: 332.0 08/19/2014 Active SHORTNESS OF BREATH ICD-9: 786.05 08/19/2014 Active VITAMIN D DEFICIENCY ICD-9: 268.9 08/19/2014 Active Medications Medication Codes Instructions Start Date Stop Date Status Fill Instructions metoprolol tartrate 25 mg tablet RxNorm: 958273 1/2 Tablet(s) PO BID 03/24/2017 10/19/2017 Active lisinopril 5 mg tablet RxNorm: 137734 1 Tablet(s) PO daily 10/28/2017 Active sertraline 50 mg tablet RxNorm: 279356 1 Tablet(s) PO daily 04/201612/07/2017 Active potassium chloride ER 20 mEq tablet,extended release RxNorm: 658021 1 Tablet(s) PO daily with lasix as needed 10/26/2016 01/31/2017 Inactive Lasix 20 mg tablet RxNorm: 430373 1 Tablet(s) PO three times a week and QDAY PRN weight gain greater than 2.5-3 lbs 10/14/2016 12/12/2016 Inactive Prilosec 20 mg capsule,delayed release RxNorm: 693818 1 Capsule(s) PO daily 10/14/2016 No Stop Date Active potassium chloride ER 20 mEq tablet,extended release RxNorm: 966174 1 Tablet(s) PO TIW 10/14/2016 10/25/2016 Inactive Xanax 0.25 mg tablet RxNorm: 299213 1/2 Tablet(s) PO TID as needed 09/20/2016 03/18/2017 Inactive cefdinir 300 mg capsule RxNorm: 582047 1 Capsule(s) PO BID 09/18/2016 Inactive Xanax 0.25 mg tablet RxNorm: 264670 1/2 Tablet(s) PO BID as needed 07/07/2016 01/01/2017 Inactive Xanax 0.25 mg tablet RxNorm: 440594 1/2 Tablet(s) PO BID as needed 07/07/2016 09/19/2016 Inactive aspirin 81 mg capsule,delayed release RxNorm: 900263 1 Capsule(s) PO TIW 04/13/2016 No Stop Date Active Zoloft 100 mg tablet RxNorm: 920983 1/2 Tablet(s) PO daily 08/28/2016 Inactive Lasix 20 mg tablet RxNorm: 810804 1 Tablet(s) PO three times a week and daily as needed weight gain greater than 2.5-3 lbs 03/30/2016 05/28/2016 Inactive metoprolol tartrate 25 mg tablet RxNorm: 847854 1/2 Tablet(s) PO BID 03/30/2016 10/25/2016 Inactive Zoloft 100 mg tablet RxNorm: 486322 1 Tablet(s) PO daily 201604/12/2016 Inactive Xanax 0.25 mg tablet RxNorm: 861765 1/2 Tablet(s) PO BID as needed 03/23/2016 06/20/2016 Inactive potassium chloride ER 20 mEq tablet,extended release RxNorm: 035139 1 Tablet(s) PO daily as needed with lasix 03/22/2016 03/21/2016 Inactive potassium chloride ER 20 mEq tablet,extended release RxNorm: 666936 1 Tablet(s) PO daily as needed with lasix 03/22/2016 05/20/2016 Inactive Lasix 20 mg tablet RxNorm: 874141 1 Tablet(s) PO daily as needed weight gain greater than 2.5-3 lbs 03/22/20162016 Inactive Lasix 20 mg tablet RxNorm: 806574 1 Tablet(s) PO daily as needed weight gain greater than 2.5-3 lbs 03/22/20162016 Inactive Mirapex 0.25 mg tablet RxNorm: 428329 1/2 Tablet(s) PO BID 10/2016 No Stop Date Active aspirin 81 mg capsule,delayed release RxNorm: 721148 1 Capsule(s) PO QW 01/13/2016 04/12/2016 Inactive Azilect 1 mg tablet RxNorm: 737320 1 Tablet(s) PO QAM , 1/2 Tab PO QPM 10/13/2015 No Stop Date Active Sinemet 25 mg-100 mg tablet RxNorm: 021533 2 Tablet(s) PO UD 2 Tabs QAM, 3 Tabs at noon, 2 Tabs QPM=7 tablets total daily 10/13/2015 No Stop Date Active albuterol sulfate 2.5 mg/3 mL (0.083 %) solution for nebulization RxNorm: 947077 3 Milliliter(s) INH TID x 1 week , then three times daily as needed for shortness of breath 01/21/2015 10/12/2015 Inactive R 06.02 albuterol sulfate 2.5 mg/3 mL (0.083 %) solution for nebulization RxNorm: 337990 3 Milliliter(s) INH TID x 1 week , then three times daily as needed for shortness of breath 01/14/2015 01/20/2015 Inactive Sinemet 25 mg-100 mg tablet RxNorm: 365592 2 Tablet(s) PO QID 8 tablets total daily 09/12/2014 10/12/2015 Inactive mupirocin 2 % topical ointment RxNorm: 591138 1 Application TOP BID 09/12/2014 09/25/2014 Inactive Vitamin D2 50,000 unit capsule RxNorm: 885093 1 Capsule(s) PO QW 08/23/2014 08/22/2014 Inactive Vitamin D2 50,000 unit capsule RxNorm: 216921 1 Capsule(s) PO QW 08/23/2014 05/18/2015 Inactive Breo Ellipta 100 mcg-25 mcg/dose powder for inhalation RxNorm: 1277140 1 inhale INH daily 08/22/2014 05/18/2015 Inactive Azilect 1 mg tablet RxNorm: 958833 1/2 Tablet(s) PO BID 201410/12/2015 Inactive Sinemet 25 mg-100 mg tablet RxNorm: 479812 2 Tablet(s) PO TID 6 tablets total daily 08/20/2014 09/11/2014 Inactive Super B Complex oral RxNorm: 84049 oral No Start Date Active Calcium 500 oral RxNorm: 1897 oral No Start Date Active Vitamin D3 oral RxNorm : 2418 oral No Start Date Active Azilect 1 mg tablet RxNorm: 539518 1 Tablet(s) PO daily No Start Date Active Mirapex 0.25 mg tablet RxNorm: 788980 1/2 Tablet(s) PO QHS as needed No Start Date Active spironolactone 25 mg tablet RxNorm: 758161 1 Tablet(s) PO daily No Start Date Active aspirin 81 mg capsule,delayed release RxNorm: 499830 1 Capsule(s) PO BIW No Start Date 01/12/2016 Inactive famotidine 20 mg tablet RxNorm: 108262 1 Tablet(s) PO BID No Start Date 05/18/2015 Inactive sertraline 100 mg tablet RxNorm: 244416 1 Tablet(s) PO daily No Start Date 03/09/2016 Inactive Ventolin HFA 90 mcg/actuation aerosol inhaler RxNorm: 0702220 1 INH QID as needed No Start Date 05/18/2015 Inactive oxybutynin chloride 5 mg tablet RxNorm: 759976 Tablet(s) PO as needed No Start Date 10/12/2015 Inactive Sinemet 25 mg-100 mg tablet RxNorm: 154289 Tablet(s) PO 6 tablets total daily No Start Date 08/19/2014 Inactive sucralfate 1 gram tablet RxNorm: 825350 1 Tablet(s) PO AC and hs No Start Date 05/18/2015 Inactive aspirin 81 mg tablet RxNorm: 656124 1 Tablet(s) PO weekly No Start Date 05/18/2015 Inactive sertraline 50 mg tablet RxNorm: 770939 1 Tablet(s) PO daily No Start Date 03/21/2016 Inactive omeprazole 20 mg capsule,delayed release RxNorm: 482126 1 Capsule(s) PO BID No Start Date 05/18/2015 Inactive Prilosec 20 mg capsule,delayed release RxNorm: 280770 1 Capsule(s) PO as needed No Start Date 10/13/2016 Inactive lisinopril 5 mg tablet RxNorm: 228907 1 Tablet(s) PO daily No Start Date 01/31/2017 Inactive Azilect 1 mg tablet RxNorm: 742815 1 Tablet(s) PO daily No Start Date 08/19/2014 Inactive Medication Administered No Medication Administered data Immunizations Vaccine Codes Date Status Influenza CVX: 141 12/13/2016 completed Zoster CVX: 121 12/24/2015 completed Assessments Condition Codes Effective Dates Essential (primary) hypertension ICD-10: I10 ICD-9: 401.1 04/14/2017 Shortness of breath ICD-10: R06.02 ICD-9: 786.05 04/14/2017 Vitamin D deficiency, unspecified ICD-10: E55.9 ICD-9: 268.9 04/14/2017 Parkinson's disease ICD-10: G20 ICD-9: 332.0 04/14/2017 Muscle weakness (generalized) ICD-10: M62.81 ICD-9: 728.87 04/14/2017 Localized enlarged lymph nodes ICD-10: R59.0 ICD-9: 785.6 02/15/2017 Chronic obstructive pulmonary disease, unspecified ICD-10: J44.9 ICD-9: 496 02/01/2017 Chronic combined systolic (congestive) and diastolic (congestive) heart failure ICD-10: I50.42 ICD-9: 428.42 02/01/2017 Hypoxemia ICD-10: R09.02 ICD-9: 799.02 02/01/2017 Encounter for general adult medical examination with abnormal findings ICD-10: Z00.01 ICD-9: V70.0 01/07/2017 Major depressive disorder, recurrent, mild ICD-10: F33.0 ICD-9: 296.31 12/13/2016 Encounter for immunization ICD-10: Z23 ICD-9: V04.81 12/13/2016 Gastro-esophageal reflux disease without esophagitis ICD-10 : K21.9 ICD-9: 530.81 10/14/2016 Dehydration ICD-10: E86.0 ICD-9: 276.51 09/16/2016 Acute combined systolic (congestive) and diastolic (congestive) heart failure ICD-10: I50.41 ICD-9: 428.41 03/30/2016 Chronic obstructive pulmonary disease with acute lower respiratory infection ICD-10: J44.0 ICD-9: 496 03/30/2016 Other forms of dyspnea ICD-10: R06.09 ICD-9: 786.09 01/13/2016 Pain in right shoulder ICD-10: M25.511 ICD-9: 719.41 08/04/2015 SHORTNESS OF BREATH ICD-9: 786.05 2014 COPD (chronic obstructive pulmonary disease) ICD-9: 496 10/15/2014 Parkinsons disease ICD-9: 332.0 2014 Lesion of ear ICD-9: 380.89 09/12/2014 Bilateral leg cramps ICD-9: 729.82 2014 VITAMIN D DEFICIENCY ICD-9: 268.9 2014 Reason For Visit Reason For Visit Effective Dates Notes skin lesion 04/14/2017 resolved skin lesion 02/15/2017 shortness of breath 02/01/2017 Annual Medicare Wellness Exam 01/07/2017 shortness of breath 12/13/2016 shortness of breath 11/16/2016 shortness of breath 10/14/2016 Hospital Follow Up 09/16/2016 ER follow up - UTI, dehydration chest pain/pressure 09/06/2016 shortness of breath 08/12/2016 dyspnea 04/13/2016 Hospital Follow Up 03/30/2016 Hospital Follow Up 03/23/2016 shortness of breath 01/13/2016 shortness of breath 10/13/2015 shoulder pain 08/04/2015 shortness of breath 05/19/2015 shortness of breath 01/14/2015 -- Improved shortness of breath 10/15/2014 shortness of breath 09/12/2014 shortness of breath 08/20/2014 Results Observation Observation Code Item Item Code Result Date Cbc With Differential Ord2 WBC 5.35 K/ul 04/14/2017 Cbc With Differential Ord2 RBC 4.22 M/ul 04/14/2017 Cbc With Differential Ord2 HGB 13.1 g/dl 04/14/2017 Cbc With Differential Ord2 HCT 41.8 % 04/14/2017 Cbc With Differential Ord2 Neut% 66.1 % 04/14/2017 Cbc With Differential Ord2 MCV 99.1 fl 04/14/2017 Cbc With Differential Ord2 Lymph% 19.8 % 04/14/2017 Cbc With Differential Ord2 Dickens% 11.6 % 04/14/2017 Cbc With Differential Ord2 MCH 31.0 pg 04/14/2017 Cbc With Differential Ord2 MCHC 31.3 pg 04/14/2017 Cbc With Differential Ord2 Eos% 2.1 % 04/14/2017 Cbc With Differential Ord2 PLT 145 K/ul 04/14/2017 Cbc With Differential Ord2 Baso% 0.4 % 04/14/2017 Cbc With Differential Ord2 RDW 13.4 % 04/14/2017 Cbc With Differential Ord2 Neut ABS# 3.54 K/ul 04/14/2017 Cbc With Differential Ord2 Lymph ABS# 1.06 K/ul 04/14/2017 Cbc With Differential Ord2 Dickens ABS# 0.6 K/ul 04/14/2017 Cbc With Differential Ord2 Eos ABS# 0.1 K/ul 04/14/2017 Cbc With Differential Ord2 Baso ABS# 0.0 K/ul 04/14/2017 Vitamin D 25 Oh [id number] VITAMIN D, 25 HYDROXY 44.56 ng/mL Tsh Ord6 TSH (3rd IS) 0.70 uIU/mL 04/14/2017 Comp Metabolic Bjc974 NA 141 mEq/L 04/14/2017 Comp Metabolic Nya206 K 4.6 mEq/L 04/14/2017 Comp Metabolic Obx430 CL 104 mEq/L 04/14/2017 Comp Metabolic Xng375 CO2 31.0 mEq/L 04/14/2017 Comp Metabolic Kpp966 ANION GAP 11 04/14/2017 Comp Metabolic Ihd718 GLUCOSE 99 mg/dL 04/14/2017 Comp Metabolic Cev160 Creat 0.8 mg/dL 04/14/2017 Comp Metabolic Qpw659 eGFR 73 ml/min/1.73m2 04/14/2017 Comp Metabolic Ihl015 BUN 23 mg/dL 04/14/2017 Comp Metabolic Cjw795 B/C Ratio 28.8 Ratio 04/14/2017 Comp Metabolic Ejk804 CALCIUM 9.4 mg/dL 04/14/2017 Comp Metabolic Dau110 ALK PHOS 58 U/L 04/14/2017 Comp Metabolic Kxr201 AST(SGOT) 22 U/L 04/14/2017 Comp Metabolic Siz109 ALT(SGPT) 6 U/L 04/14/2017 Comp Metabolic Axc583 BILI T 0.4 mg/dL 04/14/2017 Comp Metabolic Osc452 ALBUMIN 4.2 g/dL 04/14/2017 Comp Metabolic Jvs320 TPRO 6.5 g/dL 04/14/2017 Comp Metabolic Lpg496 GLOB 2.3 g/dL 04/14/2017 Comp Metabolic Xid703 A/G Ratio 1.8 Ratio 04/14/2017 Comp Metabolic Blt671 Osmo 285 mOsmo 04/14/2017 Cbc With Differential Ord2 WBC 5.07 K/ul 11/16/2016 Cbc With Differential Ord2 RBC 4.09 M/ul 11/16/2016 Cbc With Differential Ord2 HGB 12.4 g/dl 11/16/2016 Cbc With Differential Ord2 Neut% 65.8 % 11/16/2016 Cbc With Differential Ord2 HCT 39.7 % 11/16/2016 Cbc With Differential Ord2 Lymph% 18.9 % 11/16/2016 Cbc With Differential Ord2 MCV 97.1 fl 11/16/2016 Cbc With Differential Ord2 MCH 30.3 pg 11/16/2016 Cbc With Differential Ord2 Dickens% 11.4 % 11/16/2016 Cbc With Differential Ord2 Eos% 3.7 % 11/16/2016 Cbc With Differential Ord2 MCHC 31.2 pg 11/16/2016 Cbc With Differential Ord2 PLT 140 K/ul 11/16/2016 Cbc With Differential Ord2 Baso% 0.2 % 11/16/2016 Cbc With Differential Ord2 RDW 13.2 % 11/16/2016 Cbc With Differential Ord2 Neut ABS# 3.33 K/ul 11/16/2016 Cbc With Differential Ord2 Lymph ABS# 0.96 K/ul 11/16/2016 Cbc With Differential Ord2 Dickens ABS# 0.6 K/ul 11/16/2016 Cbc With Differential Ord2 Eos ABS# 0.2 K/ul 11/16/2016 Cbc With Differential Ord2 Baso ABS# 0.0 K/ul 11/16/2016 Comp Metabolic Xgm485 NA 140 mEq/L 11/16/2016 Comp Metabolic Bgi592 K 4.4 mEq/L 11/16/2016 Comp Metabolic Wlo294 CL 102 mEq/L 11/16/2016 Comp Metabolic Ftb992 CO2 30.0 mEq/L 11/16/2016 Comp Metabolic Ihr150 ANION GAP 12 11/16/2016 Comp Metabolic Due631 GLUCOSE 157 mg/dL 11/16/2016 Comp Metabolic Nko684 Creat 0.8 mg/dL 11/16/2016 Comp Metabolic Sgy425 eGFR 75 ml/min/1.73m2 11/16/2016 Comp Metabolic Rpn232 BUN 26 mg/dL 11/16/2016 Comp Metabolic Qdf394 B/C Ratio 33.3 Ratio 11/16/2016 Comp Metabolic Knp845 CALCIUM 9.5 mg/dL 11/16/2016 Comp Metabolic Guo170 ALK PHOS 54 U/L 11/16/2016 Comp Metabolic Tcx560 AST(SGOT) 25 U/L 11/16/2016 Comp Metabolic Ffm140 ALT(SGPT) 7 U/L 11/16/2016 Comp Metabolic Zkx633 BILI T 0.4 mg/dL 11/16/2016 Comp Metabolic Qfn112 ALBUMIN 4.0 g/dL 11/16/2016 Comp Metabolic Knt119 TPRO 6.3 g/dL 11/16/2016 Comp Metabolic Pit445 GLOB 2.3 g/dL 11/16/2016 Comp Metabolic Hhz384 A/G Ratio 1.8 Ratio 11/16/2016 Comp Metabolic Rig477 Osmo 287 mOsmo 11/16/2016 B Type Natriuretic Peptide Rls1636 B-MISSILE MECHANIC 130.00 pg/ml 2016 Comp Metabolic Voq158 NA 139 mEq/L 09/16/2016 Comp Metabolic Zhd282 K 4.9 mEq/L 09/16/2016 Comp Metabolic Kkq017 CL 100 mEq/L 09/16/2016 Comp Metabolic Nvl452 CO2 31.0 mEq/L 09/16/2016 Comp Metabolic Bsg276 ANION GAP 13 09/16/2016 Comp Metabolic Olg336 GLUCOSE 142 mg/dL 09/16/2016 Comp Metabolic Xye056 Creat 1.0 mg/dL 09/16/2016 Comp Metabolic Mso983 eGFR 57 ml/min/1.73m2 09/16/2016 Comp Metabolic Ldz082 BUN 29 mg/dL 09/16/2016 Comp Metabolic Nwj472 B/C Ratio 29.3 Ratio 09/16/2016 Comp Metabolic Pwk686 CALCIUM 9.7 mg/dL 09/16/2016 Comp Metabolic Yjs209 ALK PHOS 60 U/L 09/16/2016 Comp Metabolic Wwc375 AST(SGOT) 27 U/L 09/16/2016 Comp Metabolic Keb290 ALT(SGPT) 14 U/L 09/16/2016 Comp Metabolic Rve001 BILI T 0.3 mg/dL 09/16/2016 Comp Metabolic Nkm660 ALBUMIN 4.1 g/dL 09/16/2016 Comp Metabolic Bgs997 TPRO 6.6 g/dL 09/16/2016 Comp Metabolic Xsw917 GLOB 2.6 g/dL 09/16/2016 Comp Metabolic Muz552 A/G Ratio 1.6 Ratio 09/16/2016 Comp Metabolic Fis443 Osmo 286 mOsmo 09/16/2016 Comp Metabolic Sdl660 NA 139 mEq/L 09/06/2016 Comp Metabolic Owm496 K 4.5 mEq/L 09/06/2016 Comp Metabolic Npl183 CL 100 mEq/L 09/06/2016 Comp Metabolic Yiy404 CO2 32.0 mEq/L 09/06/2016 Comp Metabolic Qxp911 ANION GAP 12 09/06/2016 Comp Metabolic Ljf809 GLUCOSE 92 mg/dL 09/06/2016 Comp Metabolic Ige388 Creat 0.8 mg/dL 09/06/2016 Comp Metabolic Suo615 eGFR 72 ml/min/1.73m2 09/06/2016 Comp Metabolic Pxs439 BUN 23 mg/dL 09/06/2016 Comp Metabolic Fmy713 B/C Ratio 28.4 Ratio 09/06/2016 Comp Metabolic Ccc626 CALCIUM 9.2 mg/dL 09/06/2016 Comp Metabolic Ijg742 ALK PHOS 58 U/L 09/06/2016 Comp Metabolic Zcy175 AST(SGOT) 24 U/L 09/06/2016 Comp Metabolic Gox382 ALT(SGPT) 25 U/L 09/06/2016 Comp Metabolic Dvc784 BILI T 0.4 mg/dL 09/06/2016 Comp Metabolic Xzk484 ALBUMIN 3.9 g/dL 09/06/2016 Comp Metabolic Hqo259 TPRO 5.9 g/dL 09/06/2016 Comp Metabolic Fkm050 GLOB 2.0 g/dL 09/06/2016 Comp Metabolic Wcz441 A/G Ratio 1.9 Ratio 09/06/2016 Comp Metabolic Ego918 Osmo 281 mOsmo 09/06/2016 B Type Natriuretic Peptide Ybd6531 B-MISSILE MECHANIC 343.00 pg/ml 2016 Review of Systems System Result Effective Dates Constitutional No recent illness 2017 Constitutional No fatigue 04/14/2017 Constitutional No fever 04/14/2017 Respiratory No cough 04/14/2017 Gastrointestinal No abdominal pain 2017 Musculoskeletal stiffness 04/14/2017 Musculoskeletal arthralgia(s) 04/14/2017 Musculoskeletal muscle weakness 2017 Dermatologic No rash 04/14/2017 Dermatologic sores 04/14/2017 Psychiatric No anxiety 04/14/2017 Psychiatric No depression 04/14/2017 Eyes vision change 04/14/2017 Cardiovascular No chest pain/pressure 03/2017 Cardiovascular No dyspnea 04/14/2017 Cardiovascular No edema 04/14/2017 Cardiovascular No exercise intolerance Cardiovascular No fatigue 04/14/2017 Constitutional No recent illness 2016 Constitutional No fatigue 02/15/2017 Constitutional No fever 02/15/2017 Musculoskeletal stiffness 02/15/2017 Musculoskeletal arthralgia(s) 02/15/2017 Musculoskeletal muscle weakness 2016 Psychiatric No anxiety 02/15/2017 Psychiatric No depression 02/15/2017 Respiratory No cough 02/15/2017 Gastrointestinal No abdominal pain 2016 Dermatologic No rash 02/15/2017 Dermatologic sores 02/15/2017 Constitutional No recent illness 2016 Constitutional No chills 02/01/2017 Constitutional No fever 02/01/2017 Eyes No blindness 02/01/2017 Ears/Nose/Throat/Neck No nasal discharge 02/01/2017 Cardiovascular No chest pain/pressure Cardiovascular No edema 02/01/2017 Respiratory No chest congestion 2016 Respiratory dyspnea on exertion 2016 Gastrointestinal No abdominal pain 2016 Gastrointestinal No constipation 2016 Gastrointestinal No diarrhea 02/01/2017 Gastrointestinal No nausea 02/01/2017 Gastrointestinal No vomiting 02/01/2017 Musculoskeletal joint complaint 2016 Dermatologic No rash 02/01/2017 Neurologic No alteration of consciousness 02/01/2017 Neurologic No mental status change 2016 Constitutional No anorexia 02/01/2017 Constitutional No night sweats 2016 Constitutional No diaphoresis 02/01/2017 Constitutional fatigue 02/01/2017 Genitourinary/Nephrology No dysuria 02/01 Psychiatric anxiety 02/01/2017 Constitutional No chills 01/07/2017 Constitutional No fever 01/07/2017 Eyes No blindness 01/07/2017 Ears/Nose/Throat/Neck No nasal discharge 01/07/2017 Cardiovascular No chest pain/pressure Cardiovascular dyspnea 01/07/2017 Cardiovascular No edema 01/07/2017 Cardiovascular exercise intolerance 01/07 Respiratory No chest congestion 2016 Respiratory dyspnea on exertion 2016 Gastrointestinal No constipation 2016 Gastrointestinal No diarrhea 01/07/2017 Gastrointestinal No nausea 01/07/2017 Gastrointestinal No vomiting 01/07/2017 Musculoskeletal No joint complaint 2016 Dermatologic No rash 01/07/2017 Neurologic No alteration of consciousness 01/07/2017 Neurologic No mental status change 2016 Psychiatric No anxiety 01/07/2017 Psychiatric No depression 01/07/2017 Constitutional No chills 12/13/2016 Constitutional No fever 12/13/2016 Eyes No blindness 12/13/2016 Ears/Nose/Throat/Neck No nasal discharge 12/13/2016 Cardiovascular No chest pain/pressure 04/2016 Cardiovascular No edema 12/13/2016 Cardiovascular exercise intolerance 12/13 Respiratory No chest congestion 2016 Respiratory dyspnea on exertion 2016 Gastrointestinal No constipation 2016 Gastrointestinal No diarrhea 12/13/2016 Gastrointestinal No nausea 12/13/2016 Gastrointestinal No vomiting 12/13/2016 Musculoskeletal No joint complaint 2016 Dermatologic No rash 12/13/2016 Neurologic No alteration of consciousness 12/13/2016 Neurologic No mental status change 2016 Psychiatric No anxiety 12/13/2016 Psychiatric No depression 12/13/2016 Cardiovascular dyspnea 12/13/2016 Constitutional No chills 11/16/2016 Constitutional No fever 11/16/2016 Eyes No blindness 11/16/2016 Ears/Nose/Throat/Neck No nasal discharge 11/16/2016 Cardiovascular No chest pain/pressure 07/2016 Cardiovascular dyspnea 11/16/2016 Cardiovascular No edema 11/16/2016 Cardiovascular exercise intolerance 11/16 Respiratory No chest congestion 2016 Respiratory dyspnea on exertion 2016 Gastrointestinal No constipation 2016 Gastrointestinal No diarrhea 11/16/2016 Gastrointestinal No nausea 11/16/2016 Gastrointestinal No vomiting 11/16/2016 Musculoskeletal No joint complaint 2016 Dermatologic No rash 11/16/2016 Neurologic No alteration of consciousness 11/16/2016 Neurologic No mental status change 2016 Psychiatric No anxiety 11/16/2016 Psychiatric No depression 11/16/2016 Constitutional No chills 10/14/2016 Constitutional No fever 10/14/2016 Eyes No blindness 10/14/2016 Ears/Nose/Throat/Neck No nasal discharge 10/14/2016 Cardiovascular No chest pain/pressure 05/2016 Cardiovascular dyspnea 10/14/2016 Cardiovascular No edema 10/14/2016 Cardiovascular exercise intolerance 10/14 Respiratory No chest congestion 2016 Respiratory dyspnea on exertion 2016 Gastrointestinal No constipation 2016 Gastrointestinal No diarrhea 10/14/2016 Gastrointestinal No nausea 10/14/2016 Gastrointestinal No vomiting 10/14/2016 Musculoskeletal No joint complaint 2016 Dermatologic No rash 10/14/2016 Neurologic No alteration of consciousness 10/14/2016 Neurologic No mental status change 2016 Psychiatric No anxiety 10/14/2016 Psychiatric No depression 10/14/2016 Constitutional No chills 09/16/2016 Constitutional No fever 09/16/2016 Eyes No blindness 09/16/2016 Ears/Nose/Throat/Neck No nasal discharge 09/16/2016 Cardiovascular No chest pain/pressure 08/2016 Cardiovascular dyspnea 09/16/2016 Cardiovascular No edema 09/16/2016 Cardiovascular exercise intolerance 09/16 Respiratory No chest congestion 2016 Respiratory dyspnea on exertion 2016 Gastrointestinal No constipation 2016 Gastrointestinal No diarrhea 09/16/2016 Gastrointestinal No nausea 09/16/2016 Gastrointestinal No vomiting 09/16/2016 Musculoskeletal No joint complaint 2016 Dermatologic No rash 09/16/2016 Neurologic No alteration of consciousness 09/16/2016 Neurologic No mental status change 2016 Psychiatric No anxiety 09/16/2016 Psychiatric No depression 09/16/2016 Constitutional No chills 09/06/2016 Constitutional No fever 09/06/2016 Eyes No blindness 09/06/2016 Ears/Nose/Throat/Neck No nasal discharge 09/06/2016 Cardiovascular No chest pain/pressure Cardiovascular dyspnea 09/06/2016 Cardiovascular No edema 09/06/2016 Cardiovascular exercise intolerance 09/06 Respiratory No chest congestion 2016 Respiratory dyspnea on exertion 2016 Gastrointestinal abdominal pain 2016 Gastrointestinal No constipation 2016 Gastrointestinal No diarrhea 09/06/2016 Gastrointestinal No nausea 09/06/2016 Gastrointestinal No vomiting 09/06/2016 Musculoskeletal No joint complaint 2016 Dermatologic No rash 09/06/2016 Neurologic No alteration of consciousness 09/06/2016 Neurologic No mental status change 2016 Psychiatric No anxiety 09/06/2016 Psychiatric No depression 09/06/2016 Constitutional No chills 08/12/2016 Constitutional No fever 08/12/2016 Eyes No blindness 08/12/2016 Ears/Nose/Throat/Neck No nasal discharge 08/12/2016 Cardiovascular No chest pain/pressure 03/2016 Cardiovascular No edema 08/12/2016 Respiratory No chest congestion 2016 Respiratory dyspnea on exertion 2016 Gastrointestinal No abdominal pain 2016 Gastrointestinal No constipation 2016 Gastrointestinal No diarrhea 08/12/2016 Gastrointestinal No nausea 08/12/2016 Gastrointestinal No vomiting 08/12/2016 Musculoskeletal No joint complaint 2016 Dermatologic No rash 08/12/2016 Neurologic No alteration of consciousness 08/12/2016 Neurologic No mental status change 2016 Cardiovascular exercise intolerance 08/12 Cardiovascular dyspnea 08/12/2016 Psychiatric No anxiety 08/12/2016 Psychiatric No depression 08/12/2016 Constitutional recent illness 04/13/2016 Constitutional No anorexia 04/13/2016 Constitutional No night sweats 2016 Constitutional No chills 04/13/2016 Constitutional diaphoresis 04/13/2016 Constitutional fatigue 04/13/2016 Constitutional No fever 04/13/2016 Constitutional No insomnia 04/13/2016 Constitutional No malaise 04/13/2016 Eyes No blindness 04/13/2016 Ears/Nose/Throat/Neck No dizziness 2016 Ears/Nose/Throat/Neck No headache 2016 Ears/Nose/Throat/Neck No nasal discharge 04/13/2016 Cardiovascular No chest pain/pressure Cardiovascular dyspnea 04/13/2016 Cardiovascular No edema 04/13/2016 Cardiovascular exercise intolerance 04/13 Cardiovascular fatigue 04/13/2016 Respiratory No productive sputum 2016 Respiratory No chest congestion 2016 Respiratory No cough 04/13/2016 Respiratory dyspnea on exertion 2016 Gastrointestinal No abdominal pain 2016 Gastrointestinal No constipation 2016 Gastrointestinal No diarrhea 04/13/2016 Gastrointestinal gastroesophageal reflux 04/13/2016 Gastrointestinal No nausea 04/13/2016 Gastrointestinal No vomiting 04/13/2016 Genitourinary/Nephrology No dysuria 04/13 Musculoskeletal No joint complaint 2016 Dermatologic No rash 04/13/2016 Dermatologic No sores 04/13/2016 Neurologic No alteration of consciousness 04/13/2016 Neurologic gait abnormality 04/13/2016 Neurologic No memory loss 04/13/2016 Neurologic No mental status change 2016 Psychiatric No anxiety 04/13/2016 Psychiatric No depression 04/13/2016 Constitutional No anorexia 03/30/2016 Constitutional No night sweats 2016 Constitutional No chills 03/30/2016 Constitutional diaphoresis 03/30/2016 Constitutional fatigue 03/30/2016 Constitutional No fever 03/30/2016 Constitutional No insomnia 03/30/2016 Constitutional No malaise 03/30/2016 Ears/Nose/Throat/Neck No dizziness 2016 Ears/Nose/Throat/Neck No headache 2016 Cardiovascular No chest pain/pressure Cardiovascular dyspnea 03/30/2016 Cardiovascular exercise intolerance 03/30 Cardiovascular fatigue 03/30/2016 Respiratory No productive sputum 2016 Respiratory No cough 03/30/2016 Gastrointestinal No constipation 2016 Gastrointestinal No diarrhea 03/30/2016 Gastrointestinal gastroesophageal reflux 03/30/2016 Genitourinary/Nephrology No dysuria 03/30 Dermatologic No rash 03/30/2016 Dermatologic No sores 03/30/2016 Neurologic gait abnormality 03/30/2016 Neurologic No memory loss 03/30/2016 Psychiatric No anxiety 03/30/2016 Psychiatric No depression 03/30/2016 Constitutional recent illness 03/30/2016 Eyes No blindness 03/30/2016 Ears/Nose/Throat/Neck No nasal discharge 03/30/2016 Cardiovascular No edema 03/30/2016 Respiratory No chest congestion 2016 Respiratory dyspnea on exertion 2016 Gastrointestinal No abdominal pain 2016 Gastrointestinal No nausea 03/30/2016 Gastrointestinal No vomiting 03/30/2016 Musculoskeletal No joint complaint 2016 Neurologic No alteration of consciousness 03/30/2016 Neurologic No mental status change 2016 Constitutional recent illness 03/23/2016 Constitutional No chills 03/23/2016 Constitutional No fever 03/23/2016 Eyes No eye erythema 03/23/2016 Ears/Nose/Throat/Neck No nasal discharge 03/23/2016 Cardiovascular No chest pain/pressure 12/2016 Cardiovascular No edema 03/23/2016 Respiratory dyspnea on exertion 2016 Respiratory No chest congestion 2016 Gastrointestinal No abdominal pain 2016 Gastrointestinal No diarrhea 03/23/2016 Gastrointestinal No constipation 2016 Gastrointestinal No vomiting 03/23/2016 Gastrointestinal No nausea 03/23/2016 Musculoskeletal No joint complaint 2016 Dermatologic No rash 03/23/2016 Neurologic No alteration of consciousness 03/23/2016 Neurologic No mental status change 2016 Constitutional No anorexia 01/13/2016 Constitutional No night sweats 2015 Constitutional No chills 01/13/2016 Constitutional diaphoresis 01/13/2016 Constitutional fatigue 01/13/2016 Constitutional No fever 01/13/2016 Constitutional No insomnia 01/13/2016 Constitutional No malaise 01/13/2016 Ears/Nose/Throat/Neck No dizziness 2015 Ears/Nose/Throat/Neck No headache 2015 Cardiovascular No chest pain/pressure 03/2015 Cardiovascular dyspnea 01/13/2016 Cardiovascular exercise intolerance 01/12 Cardiovascular fatigue 01/13/2016 Respiratory No productive sputum 2015 Respiratory No cough 01/13/2016 Gastrointestinal No constipation 2015 Gastrointestinal No diarrhea 01/13/2016 Gastrointestinal gastroesophageal reflux 01/13/2016 Genitourinary/Nephrology No dysuria 01/12 Musculoskeletal joint complaint 2015 Dermatologic No rash 01/13/2016 Dermatologic No sores 01/13/2016 Neurologic gait abnormality 01/13/2016 Neurologic No memory loss 01/13/2016 Psychiatric No anxiety 01/13/2016 Psychiatric No depression 01/13/2016 Constitutional No anorexia 10/13/2015 Constitutional No night sweats 2015 Constitutional No chills 10/13/2015 Constitutional No diaphoresis 10/13/2015 Constitutional fatigue 10/13/2015 Constitutional No fever 10/13/2015 Constitutional No insomnia 10/13/2015 Constitutional No malaise 10/13/2015 Eyes No eye discharge 10/13/2015 Eyes No eye erythema 10/13/2015 Ears/Nose/Throat/Neck No dizziness 2015 Ears/Nose/Throat/Neck No headache 2015 Cardiovascular No chest pain/pressure 03/2015 Cardiovascular No dyspnea 10/13/2015 Cardiovascular exercise intolerance 10/12 Respiratory No productive sputum 2015 Respiratory No cough 10/13/2015 Gastrointestinal No constipation 2015 Gastrointestinal No diarrhea 10/13/2015 Gastrointestinal gastroesophageal reflux 10/13/2015 Genitourinary/Nephrology No dysuria 10/12 Musculoskeletal joint complaint 2015 Dermatologic No rash 10/13/2015 Dermatologic No sores 10/13/2015 Neurologic gait abnormality 10/13/2015 Neurologic No memory loss 10/13/2015 Psychiatric No anxiety 10/13/2015 Psychiatric No depression 10/13/2015 Cardiovascular No fatigue 10/13/2015 Constitutional No fever 08/04/2015 Eyes No eye discharge 08/04/2015 Eyes No eye erythema 08/04/2015 Cardiovascular No chest pain/pressure Respiratory No cough 08/04/2015 Genitourinary/Nephrology No dysuria 08/03 Dermatologic No rash 08/04/2015 Dermatologic No sores 08/04/2015 Psychiatric No anxiety 08/04/2015 Psychiatric No depression 08/04/2015 Ears/Nose/Throat/Neck No nasal allergies 08/04/2015 Respiratory No dyspnea 08/04/2015 Gastrointestinal No abdominal pain 2015 Musculoskeletal joint complaint 2015 Neurologic No alteration of consciousness 08/04/2015 Neurologic No mental status change 2015 Constitutional No anorexia 05/19/2015 Constitutional No night sweats 2015 Constitutional No chills 05/19/2015 Constitutional No diaphoresis 05/19/2015 Constitutional fatigue 05/19/2015 Constitutional No fever 05/19/2015 Constitutional No insomnia 05/19/2015 Constitutional No malaise 05/19/2015 Eyes No eye discharge 05/19/2015 Eyes No eye erythema 05/19/2015 Ears/Nose/Throat/Neck No dizziness 2015 Ears/Nose/Throat/Neck No headache 2015 Cardiovascular No chest pain/pressure 09/2015 Cardiovascular dyspnea 05/19/2015 Cardiovascular exercise intolerance 05/18 Cardiovascular fatigue 05/19/2015 Respiratory No productive sputum 2015 Respiratory No cough 05/19/2015 Respiratory dyspnea on exertion 2015 Gastrointestinal No constipation 2015 Gastrointestinal No diarrhea 05/19/2015 Gastrointestinal gastroesophageal reflux 05/19/2015 Genitourinary/Nephrology No dysuria 05/18 Musculoskeletal joint complaint 2015 Dermatologic No rash 05/19/2015 Dermatologic No sores 05/19/2015 Neurologic gait abnormality 05/19/2015 Neurologic No memory loss 05/19/2015 Psychiatric No anxiety 05/19/2015 Psychiatric No depression 05/19/2015 Constitutional No anorexia 01/14/2015 Constitutional No night sweats 2014 Constitutional No chills 01/14/2015 Constitutional No diaphoresis 01/14/2015 Constitutional No fever 01/14/2015 Constitutional No insomnia 01/14/2015 Constitutional No malaise 01/14/2015 Eyes No eye discharge 01/14/2015 Eyes No eye erythema 01/14/2015 Ears/Nose/Throat/Neck No dizziness 2014 Ears/Nose/Throat/Neck No headache 2014 Cardiovascular No chest pain/pressure 05/2014 Cardiovascular dyspnea 01/14/2015 Cardiovascular exercise intolerance 01/14 Cardiovascular fatigue 01/14/2015 Respiratory No productive sputum 2014 Respiratory No cough 01/14/2015 Gastrointestinal No constipation 2014 Gastrointestinal No diarrhea 01/14/2015 Gastrointestinal gastroesophageal reflux 01/14/2015 Genitourinary/Nephrology No dysuria 01/14 Musculoskeletal joint complaint 2014 Dermatologic No rash 01/14/2015 Dermatologic No sores 01/14/2015 Neurologic gait abnormality 01/14/2015 Neurologic No memory loss 01/14/2015 Psychiatric No anxiety 01/14/2015 Psychiatric No depression 01/14/2015 Constitutional fatigue 01/14/2015 Respiratory dyspnea on exertion 2014 Constitutional No anorexia 10/15/2014 Constitutional No night sweats 2014 Constitutional No chills 10/15/2014 Constitutional No diaphoresis 10/15/2014 Constitutional fatigue 10/15/2014 Constitutional No fever 10/15/2014 Constitutional No insomnia 10/15/2014 Constitutional No malaise 10/15/2014 Eyes No eye discharge 10/15/2014 Eyes No eye erythema 10/15/2014 Ears/Nose/Throat/Neck No dizziness 2014 Ears/Nose/Throat/Neck No headache 2014 Cardiovascular No chest pain/pressure 06/2014 Cardiovascular dyspnea 10/15/2014 Cardiovascular exercise intolerance 10/15 Cardiovascular fatigue 10/15/2014 Respiratory No productive sputum 2014 Respiratory No cough 10/15/2014 Gastrointestinal No constipation 2014 Gastrointestinal No diarrhea 10/15/2014 Gastrointestinal gastroesophageal reflux 10/15/2014 Genitourinary/Nephrology No dysuria 10/15 Musculoskeletal joint complaint 2014 Dermatologic No rash 10/15/2014 Dermatologic No sores 10/15/2014 Neurologic gait abnormality 10/15/2014 Neurologic No memory loss 10/15/2014 Psychiatric No anxiety 10/15/2014 Psychiatric No depression 10/15/2014 Constitutional No recent illness 2014 Constitutional No anorexia 09/12/2014 Constitutional No night sweats 2014 Constitutional No chills 09/12/2014 Constitutional No diaphoresis 09/12/2014 Constitutional fatigue 09/12/2014 Constitutional No fever 09/12/2014 Constitutional No insomnia 09/12/2014 Constitutional No malaise 09/12/2014 Eyes No eye discharge 09/12/2014 Eyes No eye erythema 09/12/2014 Ears/Nose/Throat/Neck No dizziness 2014 Ears/Nose/Throat/Neck No headache 2014 Ears/Nose/Throat/Neck nasal allergies 04/2014 Cardiovascular No chest pain/pressure 04/2014 Cardiovascular dyspnea 09/12/2014 Cardiovascular exercise intolerance 09/12 Cardiovascular fatigue 09/12/2014 Respiratory No productive sputum 2014 Respiratory No cough 09/12/2014 Gastrointestinal No constipation 2014 Gastrointestinal No diarrhea 09/12/2014 Gastrointestinal gastroesophageal reflux 09/12/2014 Genitourinary/Nephrology No dysuria 09/12 Dermatologic No rash 09/12/2014 Dermatologic No sores 09/12/2014 Neurologic gait abnormality 09/12/2014 Neurologic No memory loss 09/12/2014 Psychiatric No anxiety 09/12/2014 Psychiatric No depression 09/12/2014 Constitutional No recent illness 2014 Constitutional No anorexia 08/20/2014 Constitutional No night sweats 2014 Constitutional No chills 08/20/2014 Constitutional No diaphoresis 08/20/2014 Constitutional fatigue 08/20/2014 Constitutional No fever 08/20/2014 Constitutional No insomnia 08/20/2014 Constitutional No malaise 08/20/2014 Constitutional weight loss 08/20/2014 Eyes No eye discharge 08/20/2014 Eyes No eye erythema 08/20/2014 Ears/Nose/Throat/Neck No dizziness 2014 Ears/Nose/Throat/Neck No headache 2014 Eyes vision change 08/20/2014 Ears/Nose/Throat/Neck nasal allergies 11/2014 Cardiovascular dyspnea 08/20/2014 Cardiovascular No chest pain/pressure 11/2014 Gastrointestinal gastroesophageal reflux 08/20/2014 Cardiovascular exercise intolerance 08/20 Cardiovascular fatigue 08/20/2014 Respiratory No cough 08/20/2014 Respiratory No productive sputum 2014 Gastrointestinal No constipation 2014 Gastrointestinal No diarrhea 08/20/2014 Genitourinary/Nephrology No dysuria 08/20 Musculoskeletal joint complaint 2014 Dermatologic No rash 08/20/2014 Dermatologic No sores 08/20/2014 Psychiatric No depression 08/20/2014 Psychiatric No anxiety 08/20/2014 Neurologic gait abnormality 08/20/2014 Neurologic No memory loss 08/20/2014 Physical Exam Exam Name System Name Item Name Status Result Effective Dates Notes Full Exam - General 1994 Constitutional general appearance Overall: well developed 04/14/2017 None Full Exam - General 1994 Constitutional general appearance Overall: in no acute distress 04/14/2017 None Full Exam - General 1994 Constitutional general appearance Overall: well nourished 04/14/2017 None Full Exam - General 1995 Ears/Nose/Throat oral cavity/pharynx/larynx Overall: oral mucosa clear 04/14/2017 None Full Exam - General 1995 Ears/Nose/Throat oral cavity/pharynx/larynx Overall: oropharyngeal mucosa clear 04/14/2017 None Full Exam - General 1994 Ears/Nose/Throat oral cavity/pharynx/larynx Overall: no masses 04/14/2017 None Full Exam - General 1994 Neck inspection of neck Lesions: left 04/14/2017 small lymph nodes x 2 each about 3mm --Resolved Full Exam - General 1994 Respiratory auscultation Overall: breath sounds clear bilaterally 04/14/2017 None Full Exam - General 1994 Respiratory respiratory effort/rhythm Overall: no retractions 04/14/2017 None Full Exam - General 1994 Respiratory respiratory effort/rhythm Overall: normal rate 04/14/2017 None Full Exam - General 1994 Cardiovascular auscultation of heart Overall: regular rate 04/14/2017 None Full Exam - General 1994 Cardiovascular auscultation of heart Overall: normal heart sounds 04/14/2017 None Full Exam - General 1994 Lymphatic neck nodes Overall: shotty lymphadenopathy 04/14/2017 on left --Resolved Full Exam - General 1994 Psychiatric orientation/consciousness Overall: oriented to person, place and time 04/14/2017 None Full Exam - General 1994 Psychiatric mood and affect Overall: normal mood and affect 04/14/2017 None Full Exam - General 1994 Psychiatric mood and affect Mood: happy 04/14/2017 None Full Exam - General 1994 Eyes pupils and irises Overall: pupils equal, round, reactive to light and accomodation 04/14/2017 None Full Exam - General 1994 Integument inspection of skin Overall: few scattered moles, no gross abnormalities 04/14/2017 None Full Exam - General 1994 Constitutional general appearance Overall: well nourished 02/15/2017 None Full Exam - General 1994 Constitutional general appearance Overall: well developed 02/15/2017 None Full Exam - General 1994 Constitutional general appearance Overall: in no acute distress 02/15/2017 None Full Exam - General 1994 Ears/Nose/Throat oral cavity/pharynx/larynx Overall: oropharyngeal mucosa clear 02/15/2017 None Full Exam - General 1994 Ears/Nose/Throat oral cavity/pharynx/larynx Overall: no masses 02/15/2017 None Full Exam - General 1994 Ears/Nose/Throat oral cavity/pharynx/larynx Overall: oral mucosa clear 02/15/2017 None Full Exam - General 1994 Neck inspection of neck Lesions: left 02/15/2017 small lymph nodes x 2 each about 3mm Full Exam - General 1994 Respiratory auscultation Overall: breath sounds clear bilaterally 02/15/2017 None Full Exam - General 1994 Respiratory respiratory effort/rhythm Overall: normal rate 02/15/2017 None Full Exam - General 1994 Respiratory respiratory effort/rhythm Overall: no retractions 02/15/2017 None Full Exam - General 1994 Cardiovascular auscultation of heart Overall: regular rate 02/15/2017 None Full Exam - General 1994 Cardiovascular auscultation of heart Overall: normal heart sounds 02/15/2017 None Full Exam - General 1994 Psychiatric orientation/consciousness Overall: oriented to person, place and time 02/15/2017 None Full Exam - General 1994 Psychiatric mood and affect Mood: happy 02/15/2017 None Full Exam - General 1994 Psychiatric mood and affect Overall: normal mood and affect 02/15/2017 None Full Exam - General 1994 Lymphatic neck nodes Overall: shotty lymphadenopathy 02/15/2017 on left Full Exam - General 1994 Constitutional general appearance Overall: well developed 02/01/2017 None Full Exam - General 1994 Constitutional general appearance Overall: well nourished 02/01/2017 None Full Exam - General 1994 Eyes conjunctiva /eyelids Overall: conjunctiva clear 02/01/2017 None Full Exam - General 1994 Eyes conjunctiva /eyelids Overall: eyelids normal 02/01/2017 None Full Exam - General 1994 Ears/Nose/Throat lips/teeth/gingiva Overall: benign lips 02/01/2017 None Full Exam - General 1994 Ears/Nose/Throat oral cavity/pharynx/larynx Overall: oral mucosa clear 02/01/2017 None Full Exam - General 1994 Respiratory auscultation Overall: breath sounds clear bilaterally 02/01/2017 None Full Exam - General 1994 Respiratory auscultation Diffuse: diminished 02/01/2017 None Full Exam - General 1994 Respiratory respiratory effort/rhythm Overall: no retractions 02/01/2017 None Full Exam - General 1994 Respiratory respiratory effort/rhythm Rate: tachypnea 02/01/2017 None Full Exam - General 1994 Cardiovascular auscultation of heart Rate: regular rate 02/01/2017 None Full Exam - General 1994 Cardiovascular auscultation of heart Rhythm: regular rhythm 02/01/2017 None Full Exam - General 1994 Abdomen abdominal exam Overall: normal bowel sounds 02/01/2017 None Full Exam - General 1994 Psychiatric orientation/consciousness Overall: oriented to person, place and time 02/01/2017 None Full Exam - General 1994 Psychiatric mood and affect Mood: flat 02/01/2017 None Full Exam - General 1994 Psychiatric mood and affect Mood: anxious 02/01/2017 None Full Exam - General 1994 Psychiatric mood and affect Affect: mood congruent 02/01/2017 None Full Exam - General 1994 Psychiatric appearance Overall: well-groomed, good eye contact 02/01/2017 None Full Exam - General 1994 Constitutional general appearance Assistive Device: walker 02/01/2017 None Full Exam - General 1994 Abdomen abdominal exam Overall: no tenderness 02/01/2017 None Full Exam - General 1994 Musculoskeletal gait and station Gait: unable to turn quickly 02/01/2017 None Full Exam - General 1994 Musculoskeletal head and neck Overall: head atraumatic 02/01/2017 None Full Exam - General 1994 Musculoskeletal head and neck Overall: cervical spine benign 02/01/2017 None Full Exam - General 1994 Neurologic cranial nerves Overall: crainial nerves 2 - 12 grossly intact 02/01/2017 None Full Exam - General 1994 Constitutional general appearance Overall: well developed 01/07/2017 None Full Exam - General 1994 Constitutional general appearance Overall: well nourished 01/07/2017 None Full Exam - General 1994 Constitutional general appearance Assistive Device: walker 01/07/2017 None Full Exam - General 1994 Eyes conjunctiva /eyelids Overall: conjunctiva clear 01/07/2017 None Full Exam - General 1994 Eyes conjunctiva /eyelids Overall: eyelids normal 01/07/2017 None Full Exam - General 1994 Ears/Nose/Throat lips/teeth/gingiva Overall: benign lips 01/07/2017 None Full Exam - General 1994 Ears/Nose/Throat oral cavity/pharynx/larynx Overall: oral mucosa clear 01/07/2017 None Full Exam - General 1994 Respiratory auscultation Overall: breath sounds clear bilaterally 01/07/2017 None Full Exam - General 1994 Respiratory auscultation Diffuse: diminished 01/07/2017 None Full Exam - General 1994 Respiratory respiratory effort/rhythm Overall: no retractions 01/07/2017 None Full Exam - General 1994 Cardiovascular auscultation of heart Rate: regular rate 01/07/2017 None Full Exam - General 1994 Cardiovascular auscultation of heart Rhythm: regular rhythm 01/07/2017 None Full Exam - General 1994 Abdomen abdominal exam Overall: no tenderness 01/07/2017 None Full Exam - General 1994 Abdomen abdominal exam Overall: normal bowel sounds 01/07/2017 None Full Exam - General 1994 Musculoskeletal gait and station Gait: unable to turn quickly 01/07/2017 None Full Exam - General 1994 Musculoskeletal head and neck Overall: head atraumatic 01/07/2017 None Full Exam - General 1994 Musculoskeletal head and neck Overall: cervical spine benign 01/07/2017 None Full Exam - General 1994 Neurologic cranial nerves Overall: crainial nerves 2 - 12 grossly intact 01/07/2017 None Full Exam - General 1994 Psychiatric orientation/consciousness Overall: oriented to person, place and time 01/07/2017 None Full Exam - General 1994 Psychiatric mood and affect Mood: flat 01/07/2017 None Full Exam - General 1994 Psychiatric mood and affect Mood: anxious 01/07/2017 None Full Exam - General 1994 Psychiatric mood and affect Affect: mood congruent 01/07/2017 None Full Exam - General 1994 Psychiatric appearance Overall: well-groomed, good eye contact 01/07/2017 None Full Exam - General 1994 Constitutional general appearance Overall: well developed 12/13/2016 None Full Exam - General 1994 Constitutional general appearance Overall: well nourished 12/13/2016 None Full Exam - General 1994 Constitutional general appearance Assistive Device: walker 12/13/2016 None Full Exam - General 1994 Eyes conjunctiva /eyelids Overall: conjunctiva clear 12/13/2016 None Full Exam - General 1994 Eyes conjunctiva /eyelids Overall: eyelids normal 12/13/2016 None Full Exam - General 1994 Ears/Nose/Throat lips/teeth/gingiva Overall: benign lips 12/13/2016 None Full Exam - General 1994 Ears/Nose/Throat oral cavity/pharynx/larynx Overall: oral mucosa clear 12/13/2016 None Full Exam - General 1994 Respiratory auscultation Overall: breath sounds clear bilaterally 12/13/2016 None Full Exam - General 1994 Respiratory auscultation Diffuse: diminished 12/13/2016 None Full Exam - General 1994 Respiratory respiratory effort/rhythm Overall: no retractions 12/13/2016 None Full Exam - General 1994 Cardiovascular auscultation of heart Rate: regular rate 12/13/2016 None Full Exam - General 1994 Cardiovascular auscultation of heart Rhythm: regular rhythm 12/13/2016 None Full Exam - General 1994 Abdomen abdominal exam Overall: no tenderness 12/13/2016 None Full Exam - General 1994 Abdomen abdominal exam Overall: normal bowel sounds 12/13/2016 None Full Exam - General 1994 Musculoskeletal gait and station Gait: unable to turn quickly 12/13/2016 None Full Exam - General 1994 Musculoskeletal head and neck Overall: head atraumatic 12/13/2016 None Full Exam - General 1994 Musculoskeletal head and neck Overall: cervical spine benign 12/13/2016 None Full Exam - General 1994 Neurologic cranial nerves Overall: crainial nerves 2 - 12 grossly intact 12/13/2016 None Full Exam - General 1994 Psychiatric orientation/consciousness Overall: oriented to person, place and time 12/13/2016 None Full Exam - General 1994 Psychiatric mood and affect Mood: flat 12/13/2016 None Full Exam - General 1994 Psychiatric mood and affect Mood: anxious 12/13/2016 None Full Exam - General 1994 Psychiatric mood and affect Affect: mood congruent 12/13/2016 None Full Exam - General 1994 Psychiatric appearance Overall: well-groomed, good eye contact 12/13/2016 None Full Exam - General 1994 Constitutional general appearance Overall: well developed 11/16/2016 None Full Exam - General 1994 Constitutional general appearance Overall: well nourished 11/16/2016 None Full Exam - General 1994 Eyes conjunctiva /eyelids Overall: conjunctiva clear 11/16/2016 None Full Exam - General 1994 Eyes conjunctiva /eyelids Overall: eyelids normal 11/16/2016 None Full Exam - General 1994 Ears/Nose/Throat lips/teeth/gingiva Overall: benign lips 11/16/2016 None Full Exam - General 1994 Ears/Nose/Throat oral cavity/pharynx/larynx Overall: oral mucosa clear 11/16/2016 None Full Exam - General 1994 Respiratory auscultation Overall: breath sounds clear bilaterally 11/16/2016 None Full Exam - General 1994 Respiratory auscultation Diffuse: diminished 11/16/2016 None Full Exam - General 1994 Respiratory respiratory effort/rhythm Overall: no retractions 11/16/2016 None Full Exam - General 1994 Cardiovascular auscultation of heart Rate: regular rate 11/16/2016 None Full Exam - General 1994 Cardiovascular auscultation of heart Rhythm: regular rhythm 11/16/2016 None Full Exam - General 1994 Abdomen abdominal exam Overall: no tenderness 11/16/2016 None Full Exam - General 1994 Abdomen abdominal exam Overall: normal bowel sounds 11/16/2016 None Full Exam - General 1994 Musculoskeletal gait and station Gait: unable to turn quickly 11/16/2016 None Full Exam - General 1994 Musculoskeletal head and neck Overall: head atraumatic 11/16/2016 None Full Exam - General 1994 Musculoskeletal head and neck Overall: cervical spine benign 11/16/2016 None Full Exam - General 1994 Neurologic cranial nerves Overall: crainial nerves 2 - 12 grossly intact 11/16/2016 None Full Exam - General 1994 Psychiatric orientation/consciousness Overall: oriented to person, place and time 11/16/2016 None Full Exam - General 1994 Psychiatric mood and affect Mood: flat 11/16/2016 None Full Exam - General 1994 Psychiatric mood and affect Mood: anxious 11/16/2016 None Full Exam - General 1994 Psychiatric mood and affect Affect: mood congruent 11/16/2016 None Full Exam - General 1994 Psychiatric appearance Overall: well-groomed, good eye contact 11/16/2016 None Full Exam - General 1994 Constitutional general appearance Assistive Device: walker 11/16/2016 None Full Exam - General 1994 Constitutional general appearance Overall: well developed 10/14/2016 None Full Exam - General 1994 Constitutional general appearance Overall: well nourished 10/14/2016 None Full Exam - General 1994 Eyes conjunctiva /eyelids Overall: conjunctiva clear 10/14/2016 None Full Exam - General 1994 Eyes conjunctiva /eyelids Overall: eyelids normal 10/14/2016 None Full Exam - General 1994 Ears/Nose/Throat lips/teeth/gingiva Overall: benign lips 10/14/2016 None Full Exam - General 1994 Ears/Nose/Throat oral cavity/pharynx/larynx Overall: oral mucosa clear 10/14/2016 None Full Exam - General 1994 Respiratory auscultation Overall: breath sounds clear bilaterally 10/14/2016 None Full Exam - General 1994 Respiratory auscultation Diffuse: diminished 10/14/2016 None Full Exam - General 1994 Respiratory respiratory effort/rhythm Overall: no retractions 10/14/2016 None Full Exam - General 1994 Cardiovascular auscultation of heart Rate: regular rate 10/14/2016 None Full Exam - General 1994 Cardiovascular auscultation of heart Rhythm: regular rhythm 10/14/2016 None Full Exam - General 1994 Musculoskeletal gait and station Gait: unable to turn quickly 10/14/2016 None Full Exam - General 1994 Musculoskeletal head and neck Overall: head atraumatic 10/14/2016 None Full Exam - General 1994 Musculoskeletal head and neck Overall: cervical spine benign 10/14/2016 None Full Exam - General 1994 Neurologic cranial nerves Overall: crainial nerves 2 - 12 grossly intact 10/14/2016 None Full Exam - General 1994 Psychiatric orientation/consciousness Overall: oriented to person, place and time 10/14/2016 None Full Exam - General 1994 Psychiatric mood and affect Mood: flat 10/14/2016 None Full Exam - General 1994 Psychiatric mood and affect Mood: anxious 10/14/2016 None Full Exam - General 1994 Psychiatric mood and affect Affect: mood congruent 10/14/2016 None Full Exam - General 1994 Psychiatric appearance Overall: well-groomed, good eye contact 10/14/2016 None Full Exam - General 1994 Abdomen abdominal exam Overall: normal bowel sounds 10/14/2016 None Full Exam - General 1994 Abdomen abdominal exam Overall: no tenderness 10/14/2016 None Full Exam - General 1994 Constitutional general appearance Overall: well developed 09/16/2016 None Full Exam - General 1994 Constitutional general appearance Overall: well nourished 09/16/2016 None Full Exam - General 1994 Eyes conjunctiva /eyelids Overall: conjunctiva clear 09/16/2016 None Full Exam - General 1994 Eyes conjunctiva /eyelids Overall: eyelids normal 09/16/2016 None Full Exam - General 1994 Ears/Nose/Throat lips/teeth/gingiva Overall: benign lips 09/16/2016 None Full Exam - General 1994 Ears/Nose/Throat oral cavity/pharynx/larynx Overall: oral mucosa clear 09/16/2016 None Full Exam - General 1994 Respiratory auscultation Overall: breath sounds clear bilaterally 09/16/2016 None Full Exam - General 1994 Respiratory auscultation Diffuse: diminished 09/16/2016 None Full Exam - General 1994 Respiratory respiratory effort/rhythm Overall: no retractions 09/16/2016 None Full Exam - General 1994 Cardiovascular auscultation of heart Rate: regular rate 09/16/2016 None Full Exam - General 1994 Cardiovascular auscultation of heart Rhythm: regular rhythm 09/16/2016 None Full Exam - General 1994 Musculoskeletal gait and station Gait: unable to turn quickly 09/16/2016 None Full Exam - General 1994 Musculoskeletal head and neck Overall: head atraumatic 09/16/2016 None Full Exam - General 1994 Musculoskeletal head and neck Overall: cervical spine benign 09/16/2016 None Full Exam - General 1994 Neurologic cranial nerves Overall: crainial nerves 2 - 12 grossly intact 09/16/2016 None Full Exam - General 1994 Psychiatric orientation/consciousness Overall: oriented to person, place and time 09/16/2016 None Full Exam - General 1994 Psychiatric mood and affect Mood: flat 09/16/2016 None Full Exam - General 1994 Psychiatric mood and affect Mood: anxious 09/16/2016 None Full Exam - General 1994 Psychiatric mood and affect Affect: mood congruent 09/16/2016 None Full Exam - General 1994 Psychiatric appearance Overall: well-groomed, good eye contact 09/16/2016 None Full Exam - General 1994 Constitutional general appearance Overall: well developed 09/06/2016 None Full Exam - General 1994 Constitutional general appearance Overall: well nourished 09/06/2016 None Full Exam - General 1994 Eyes conjunctiva /eyelids Overall: conjunctiva clear 09/06/2016 None Full Exam - General 1994 Eyes conjunctiva /eyelids Overall: eyelids normal 09/06/2016 None Full Exam - General 1994 Ears/Nose/Throat lips/teeth/gingiva Overall: benign lips 09/06/2016 None Full Exam - General 1994 Ears/Nose/Throat oral cavity/pharynx/larynx Overall: oral mucosa clear 09/06/2016 None Full Exam - General 1994 Respiratory auscultation Overall: breath sounds clear bilaterally 09/06/2016 None Full Exam - General 1994 Respiratory auscultation Diffuse: diminished 09/06/2016 None Full Exam - General 1994 Respiratory respiratory effort/rhythm Overall: no retractions 09/06/2016 None Full Exam - General 1994 Cardiovascular auscultation of heart Rate: regular rate 09/06/2016 None Full Exam - General 1994 Cardiovascular auscultation of heart Rhythm: regular rhythm 09/06/2016 None Full Exam - General 1994 Musculoskeletal gait and station Gait: unable to turn quickly 09/06/2016 None Full Exam - General 1994 Musculoskeletal head and neck Overall: head atraumatic 09/06/2016 None Full Exam - General 1994 Musculoskeletal head and neck Overall: cervical spine benign 09/06/2016 None Full Exam - General 1994 Neurologic cranial nerves Overall: crainial nerves 2 - 12 grossly intact 09/06/2016 None Full Exam - General 1994 Psychiatric orientation/consciousness Overall: oriented to person, place and time 09/06/2016 None Full Exam - General 1994 Psychiatric mood and affect Mood: flat 09/06/2016 None Full Exam - General 1994 Psychiatric mood and affect Mood: anxious 09/06/2016 None Full Exam - General 1994 Psychiatric mood and affect Affect: mood congruent 09/06/2016 None Full Exam - General 1994 Psychiatric appearance Overall: well-groomed, good eye contact 09/06/2016 None Full Exam - General 1994 Abdomen abdominal exam Upper quadrant: tender to palpation 09/06/2016 mildly tender to palpation Full Exam - General 1994 Constitutional general appearance Overall: well developed 08/12/2016 None Full Exam - General 1994 Constitutional general appearance Overall: well nourished 08/12/2016 None Full Exam - General 1994 Eyes conjunctiva /eyelids Overall: conjunctiva clear 08/12/2016 None Full Exam - General 1994 Eyes conjunctiva /eyelids Overall: eyelids normal 08/12/2016 None Full Exam - General 1994 Ears/Nose/Throat lips/teeth/gingiva Overall: benign lips 08/12/2016 None Full Exam - General 1994 Ears/Nose/Throat oral cavity/pharynx/larynx Overall: oral mucosa clear 08/12/2016 None Full Exam - General 1994 Respiratory auscultation Overall: breath sounds clear bilaterally 08/12/2016 None Full Exam - General 1994 Respiratory auscultation Diffuse: diminished 08/12/2016 None Full Exam - General 1994 Respiratory respiratory effort/rhythm Overall: no retractions 08/12/2016 None Full Exam - General 1994 Respiratory respiratory effort/rhythm Rate: tachypnea 08/12/2016 None Full Exam - General 1994 Cardiovascular auscultation of heart Rate: regular rate 08/12/2016 None Full Exam - General 1994 Cardiovascular auscultation of heart Rhythm: regular rhythm 08/12/2016 None Full Exam - General 1994 Abdomen abdominal exam Overall: normal bowel sounds 08/12/2016 None Full Exam - General 1994 Psychiatric orientation/consciousness Overall: oriented to person, place and time 08/12/2016 None Full Exam - General 1994 Psychiatric mood and affect Mood: flat 08/12/2016 None Full Exam - General 1994 Psychiatric mood and affect Mood: anxious 08/12/2016 None Full Exam - General 1994 Psychiatric mood and affect Affect: mood congruent 08/12/2016 None Full Exam - General 1994 Psychiatric appearance Overall: well-groomed, good eye contact 08/12/2016 None Full Exam - General 1995 Musculoskeletal head and neck Overall: cervical spine benign 08/12/2016 None Full Exam - General 1994 Musculoskeletal head and neck Overall: head atraumatic 08/12/2016 None Full Exam - General 1994 Musculoskeletal gait and station Gait: unable to turn quickly 08/12/2016 None Full Exam - General 1994 Neurologic cranial nerves Overall: crainial nerves 2 - 12 grossly intact 08/12/2016 None Full Exam - General 1994 Constitutional general appearance Overall: well developed 04/13/2016 None Full Exam - General 1994 Constitutional general appearance Overall: in no acute distress 04/13/2016 None Full Exam - General 1995 Constitutional general appearance Overall: well nourished 04/13/2016 None Full Exam - General 1994 Eyes conjunctiva /eyelids Overall: conjunctiva clear 04/13/2016 None Full Exam - General 1994 Eyes conjunctiva /eyelids Overall: eyelids normal 04/13/2016 None Full Exam - General 1994 Eyes pupils and irises Overall: pupils equal, round, reactive to light and accomodation 04/13/2016 None Full Exam - General 1994 Ears/Nose/Throat otoscopic exam Overall: external auditory canals clear 04/13/2016 None Full Exam - General 1994 Ears/Nose/Throat otoscopic exam Overall: tympanic membranes clear 04/13/2016 None Full Exam - General 1994 Ears/Nose/Throat lips/teeth/gingiva Overall: benign lips 04/13/2016 None Full Exam - General 1994 Ears/Nose/Throat oral cavity/pharynx/larynx Overall: oral mucosa clear 04/13/2016 None Full Exam - General 1994 Respiratory auscultation Overall: breath sounds clear bilaterally 04/13/2016 None Full Exam - General 1994 Respiratory auscultation Diffuse: diminished 04/13/2016 None Full Exam - General 1994 Respiratory respiratory effort/rhythm Overall: no retractions 04/13/2016 None Full Exam - General 1994 Respiratory respiratory effort/rhythm Overall: normal rate 04/13/2016 None Full Exam - General 1994 Respiratory respiratory effort/rhythm Rate: tachypnea 04/13/2016 None Full Exam - General 1994 Cardiovascular auscultation of heart Overall: regular rate 04/13/2016 None Full Exam - General 1994 Cardiovascular auscultation of heart Overall: normal heart sounds 04/13/2016 None Full Exam - General 1994 Cardiovascular auscultation of heart Rhythm: regular rhythm 04/13/2016 None Full Exam - General 1994 Abdomen abdominal exam Overall: no tenderness 04/13/2016 None Full Exam - General 1994 Abdomen abdominal exam Overall: normal bowel sounds 04/13/2016 None Full Exam - General 1994 Lymphatic neck nodes Overall: anterior cervical chain benign 04/13/2016 None Full Exam - General 1994 Lymphatic neck nodes Overall: posterior cervical chain benign 04/13/2016 None Full Exam - General 1994 Musculoskeletal head and neck Overall: head atraumatic 04/13/2016 None Full Exam - General 1994 Integument inspection of skin Overall: no rash, lesions 04/13/2016 None Full Exam - General 1994 Neurologic gait Conventional walking: shuffling 04/13/2016 None Full Exam - General 1994 Neurologic cranial nerves Overall: crainial nerves 2 - 12 grossly intact 04/13/2016 None Full Exam - General 1994 Neurologic motor Appearance: tremor 04/13/2016 None Full Exam - General 1994 Psychiatric orientation/consciousness Overall: oriented to person, place and time 04/13/2016 None Full Exam - General 1994 Psychiatric mood and affect Mood: flat 04/13/2016 None Full Exam - General 1994 Psychiatric mood and affect Mood: anxious 04/13/2016 None Full Exam - General 1994 Psychiatric mood and affect Affect: mood congruent 04/13/2016 None Full Exam - General 1994 Psychiatric appearance Overall: well-groomed, good eye contact 04/13/2016 None Full Exam - General 1994 Constitutional general appearance Overall: well developed 03/30/2016 None Full Exam - General 1994 Constitutional general appearance Overall: in no acute distress 03/30/2016 None Full Exam - General 1994 Constitutional general appearance Overall: well nourished 03/30/2016 None Full Exam - General 1994 Eyes conjunctiva /eyelids Overall: conjunctiva clear 03/30/2016 None Full Exam - General 1994 Eyes pupils and irises Overall: pupils equal, round, reactive to light and accomodation 03/30/2016 None Full Exam - General 1994 Ears/Nose/Throat otoscopic exam Overall: external auditory canals clear 03/30/2016 None Full Exam - General 1994 Ears/Nose/Throat otoscopic exam Overall: tympanic membranes clear 03/30/2016 None Full Exam - General 1994 Ears/Nose/Throat oral cavity/pharynx/larynx Overall: oral mucosa clear 03/30/2016 None Full Exam - General 1994 Respiratory auscultation Overall: breath sounds clear bilaterally 03/30/2016 None Full Exam - General 1994 Respiratory respiratory effort/rhythm Overall: no retractions 03/30/2016 None Full Exam - General 1994 Respiratory respiratory effort/rhythm Overall: normal rate 03/30/2016 None Full Exam - General 1994 Cardiovascular auscultation of heart Overall: regular rate 03/30/2016 None Full Exam - General 1994 Cardiovascular auscultation of heart Overall: normal heart sounds 03/30/2016 None Full Exam - General 1994 Abdomen abdominal exam Overall: no tenderness 03/30/2016 None Full Exam - General 1994 Abdomen abdominal exam Overall: normal bowel sounds 03/30/2016 None Full Exam - General 1994 Lymphatic neck nodes Overall: anterior cervical chain benign 03/30/2016 None Full Exam - General 1994 Lymphatic neck nodes Overall: posterior cervical chain benign 03/30/2016 None Full Exam - General 1994 Musculoskeletal head and neck Overall: head atraumatic 03/30/2016 None Full Exam - General 1994 Integument inspection of skin Overall: no rash, lesions 03/30/2016 None Full Exam - General 1994 Neurologic gait Conventional walking: shuffling 03/30/2016 None Full Exam - General 1994 Neurologic cranial nerves Overall: crainial nerves 2 - 12 grossly intact 03/30/2016 None Full Exam - General 1994 Neurologic motor Appearance: tremor 03/30/2016 None Full Exam - General 1994 Psychiatric orientation/consciousness Overall: oriented to person, place and time 03/30/2016 None Full Exam - General 1994 Eyes conjunctiva /eyelids Overall: eyelids normal 03/30/2016 None Full Exam - General 1994 Ears/Nose/Throat lips/teeth/gingiva Overall: benign lips 03/30/2016 None Full Exam - General 1994 Respiratory auscultation Diffuse: diminished 03/30/2016 None Full Exam - General 1994 Respiratory respiratory effort/rhythm Rate: tachypnea 03/30/2016 None Full Exam - General 1994 Cardiovascular auscultation of heart Rhythm: regular rhythm 03/30/2016 None Full Exam - General 1994 Psychiatric mood and affect Mood: flat 03/30/2016 None Full Exam - General 1994 Psychiatric mood and affect Mood: anxious 03/30/2016 None Full Exam - General 1994 Psychiatric mood and affect Affect: mood congruent 03/30/2016 None Full Exam - General 1994 Psychiatric appearance Overall: well-groomed, good eye contact 03/30/2016 None Full Exam - General 1994 Constitutional general appearance Overall: well developed 03/23/2016 None Full Exam - General 1994 Constitutional general appearance Overall: well nourished 03/23/2016 None Full Exam - General 1994 Eyes conjunctiva /eyelids Overall: conjunctiva clear 03/23/2016 None Full Exam - General 1994 Eyes conjunctiva /eyelids Overall: eyelids normal 03/23/2016 None Full Exam - General 1994 Ears/Nose/Throat lips/teeth/gingiva Overall: benign lips 03/23/2016 None Full Exam - General 1994 Ears/Nose/Throat oral cavity/pharynx/larynx Overall: oral mucosa clear 03/23/2016 None Full Exam - General 1994 Respiratory auscultation Overall: breath sounds clear bilaterally 03/23/2016 None Full Exam - General 1994 Respiratory auscultation Diffuse: diminished 03/23/2016 None Full Exam - General 1994 Respiratory respiratory effort/rhythm Overall: no retractions 03/23/2016 None Full Exam - General 1994 Respiratory respiratory effort/rhythm Rate: tachypnea 03/23/2016 None Full Exam - General 1994 Cardiovascular auscultation of heart Rate: regular rate 03/23/2016 None Full Exam - General 1994 Cardiovascular auscultation of heart Rhythm: regular rhythm 03/23/2016 None Full Exam - General 1994 Psychiatric orientation/consciousness Overall: oriented to person, place and time 03/23/2016 None Full Exam - General 1994 Psychiatric mood and affect Mood: flat 03/23/2016 None Full Exam - General 1994 Psychiatric mood and affect Mood: anxious 03/23/2016 None Full Exam - General 1994 Psychiatric mood and affect Affect: mood congruent 03/23/2016 None Full Exam - General 1994 Psychiatric appearance Overall: well-groomed, good eye contact 03/23/2016 None Full Exam - General 1994 Abdomen abdominal exam Overall: normal bowel sounds 03/23/2016 None Full Exam - General 1994 Constitutional general appearance Overall: well developed 01/13/2016 None Full Exam - General 1994 Constitutional general appearance Overall: in no acute distress 01/13/2016 None Full Exam - General 1994 Constitutional general appearance Overall: well nourished 01/13/2016 None Full Exam - General 1994 Eyes conjunctiva /eyelids Overall: conjunctiva clear 01/13/2016 None Full Exam - General 1994 Eyes pupils and irises Overall: pupils equal, round, reactive to light and accomodation 01/13/2016 None Full Exam - General 1994 Ears/Nose/Throat otoscopic exam Overall: external auditory canals clear 01/13/2016 None Full Exam - General 1994 Ears/Nose/Throat otoscopic exam Overall: tympanic membranes clear 01/13/2016 None Full Exam - General 1994 Ears/Nose/Throat oral cavity/pharynx/larynx Overall: oral mucosa clear 01/13/2016 None Full Exam - General 1994 Respiratory auscultation Overall: breath sounds clear bilaterally 01/13/2016 None Full Exam - General 1994 Respiratory respiratory effort/rhythm Overall: no retractions 01/13/2016 None Full Exam - General 1994 Respiratory respiratory effort/rhythm Overall: normal rate 01/13/2016 None Full Exam - General 1994 Cardiovascular auscultation of heart Overall: regular rate 01/13/2016 None Full Exam - General 1994 Cardiovascular auscultation of heart Overall: normal heart sounds 01/13/2016 None Full Exam - General 1994 Abdomen abdominal exam Overall: no tenderness 01/13/2016 None Full Exam - General 1994 Abdomen abdominal exam Overall: normal bowel sounds 01/13/2016 None Full Exam - General 1994 Lymphatic neck nodes Overall: anterior cervical chain benign 01/13/2016 None Full Exam - General 1994 Lymphatic neck nodes Overall: posterior cervical chain benign 01/13/2016 None Full Exam - General 1994 Musculoskeletal head and neck Overall: head atraumatic 01/13/2016 None Full Exam - General 1994 Integument inspection of skin Overall: no rash, lesions 01/13/2016 None Full Exam - General 1994 Neurologic gait Conventional walking: shuffling 01/13/2016 None Full Exam - General 1994 Neurologic cranial nerves Overall: crainial nerves 2 - 12 grossly intact 01/13/2016 None Full Exam - General 1994 Neurologic motor Appearance: tremor 01/13/2016 None Full Exam - General 1994 Psychiatric orientation/consciousness Overall: oriented to person, place and time 01/13/2016 None Full Exam - General 1994 Constitutional general appearance Overall: well developed 10/13/2015 None Full Exam - General 1994 Constitutional general appearance Overall: in no acute distress 10/13/2015 None Full Exam - General 1994 Constitutional general appearance Overall: well nourished 10/13/2015 None Full Exam - General 1994 Eyes conjunctiva /eyelids Overall: conjunctiva clear 10/13/2015 None Full Exam - General 1994 Eyes pupils and irises Overall: pupils equal, round, reactive to light and accomodation 10/13/2015 None Full Exam - General 1994 Ears/Nose/Throat otoscopic exam Overall: external auditory canals clear 10/13/2015 None Full Exam - General 1994 Ears/Nose/Throat otoscopic exam Overall: tympanic membranes clear 10/13/2015 None Full Exam - General 1994 Ears/Nose/Throat oral cavity/pharynx/larynx Overall: oral mucosa clear 10/13/2015 None Full Exam - General 1994 Respiratory auscultation Overall: breath sounds clear bilaterally 10/13/2015 None Full Exam - General 1994 Respiratory respiratory effort/rhythm Overall: no retractions 10/13/2015 None Full Exam - General 1994 Respiratory respiratory effort/rhythm Overall: normal rate 10/13/2015 None Full Exam - General 1994 Cardiovascular auscultation of heart Overall: regular rate 10/13/2015 None Full Exam - General 1994 Cardiovascular auscultation of heart Overall: normal heart sounds 10/13/2015 None Full Exam - General 1994 Abdomen abdominal exam Overall: no tenderness 10/13/2015 None Full Exam - General 1994 Abdomen abdominal exam Overall: normal bowel sounds 10/13/2015 None Full Exam - General 1994 Lymphatic neck nodes Overall: anterior cervical chain benign 10/13/2015 None Full Exam - General 1994 Lymphatic neck nodes Overall: posterior cervical chain benign 10/13/2015 None Full Exam - General 1994 Musculoskeletal head and neck Overall: head atraumatic 10/13/2015 None Full Exam - General 1994 Integument inspection of skin Overall: no rash, lesions 10/13/2015 None Full Exam - General 1994 Neurologic gait Conventional walking: shuffling 10/13/2015 None Full Exam - General 1994 Neurologic cranial nerves Overall: crainial nerves 2 - 12 grossly intact 10/13/2015 None Full Exam - General 1994 Neurologic motor Appearance: tremor 10/13/2015 None Full Exam - General 1994 Psychiatric orientation/consciousness Overall: oriented to person, place and time 10/13/2015 None Full Exam - General 1994 Constitutional general appearance Overall: well developed 08/04/2015 None Full Exam - General 1994 Constitutional general appearance Overall: in no acute distress 08/04/2015 None Full Exam - General 1994 Constitutional general appearance Overall: well nourished 08/04/2015 None Full Exam - General 1994 Eyes conjunctiva /eyelids Overall: conjunctiva clear 08/04/2015 None Full Exam - General 1994 Ears/Nose/Throat oral cavity/pharynx/larynx Overall: oral mucosa clear 08/04/2015 None Full Exam - General 1994 Respiratory respiratory effort/rhythm Overall: no retractions 08/04/2015 None Full Exam - General 1994 Respiratory respiratory effort/rhythm Overall: normal rate 08/04/2015 None Full Exam - General 1994 Musculoskeletal upper extremity Palpation - shoulder: tenderness @ bicipital groove 08/04/2015 None Full Exam - General 1994 Musculoskeletal head and neck Overall: head atraumatic 08/04/2015 None Full Exam - General 1994 Integument inspection of skin Overall: no rash, lesions 08/04/2015 None Full Exam - General 1994 Neurologic gait Conventional walking: shuffling 08/04/2015 None Full Exam - General 1994 Neurologic cranial nerves Overall: crainial nerves 2 - 12 grossly intact 08/04/2015 None Full Exam - General 1994 Psychiatric orientation/consciousness Overall: oriented to person, place and time 08/04/2015 None Full Exam - General 1994 Ears/Nose/Throat lips/teeth/gingiva Overall: benign lips 08/04/2015 None Full Exam - General 1994 Musculoskeletal upper extremity Palpation - shoulder: tenderness @ subacromial space 08/04/2015 None Full Exam - General 1994 Musculoskeletal upper extremity Palpation - shoulder: acromioclavicular joint tenderness 08/04/2015 None Full Exam - General 1994 Musculoskeletal upper extremity ROM - shoulder: pain with adduction 08/04/2015 None Full Exam - General 1994 Musculoskeletal upper extremity ROM - shoulder: pain with abduction 08/04/2015 None Full Exam - General 1994 Psychiatric mood and affect Overall: normal mood and affect 08/04/2015 None Full Exam - General 1994 Psychiatric appearance Overall: well-groomed, good eye contact 08/04/2015 None Full Exam - General 1994 Psychiatric speech Overall: normal quality, no aphasia 08/04/2015 None Full Exam - General 1994 Psychiatric speech Overall: normal quality, quantity, rate 08/04/2015 None Full Exam - General 1994 Constitutional general appearance Overall: well developed 05/19/2015 None Full Exam - General 1994 Constitutional general appearance Overall: in no acute distress 05/19/2015 None Full Exam - General 1994 Constitutional general appearance Overall: well nourished 05/19/2015 None Full Exam - General 1994 Eyes conjunctiva /eyelids Overall: conjunctiva clear 05/19/2015 None Full Exam - General 1994 Eyes pupils and irises Overall: pupils equal, round, reactive to light and accomodation 05/19/2015 None Full Exam - General 1994 Ears/Nose/Throat otoscopic exam Overall: external auditory canals clear 05/19/2015 None Full Exam - General 1994 Ears/Nose/Throat otoscopic exam Overall: tympanic membranes clear 05/19/2015 None Full Exam - General 1994 Ears/Nose/Throat oral cavity/pharynx/larynx Overall: oral mucosa clear 05/19/2015 None Full Exam - General 1994 Respiratory auscultation Overall: breath sounds clear bilaterally 05/19/2015 None Full Exam - General 1994 Respiratory respiratory effort/rhythm Overall: no retractions 05/19/2015 None Full Exam - General 1994 Respiratory respiratory effort/rhythm Overall: normal rate 05/19/2015 None Full Exam - General 1994 Cardiovascular auscultation of heart Overall: regular rate 05/19/2015 None Full Exam - General 1994 Cardiovascular auscultation of heart Overall: normal heart sounds 05/19/2015 None Full Exam - General 1994 Abdomen abdominal exam Overall: no tenderness 05/19/2015 None Full Exam - General 1994 Abdomen abdominal exam Overall: normal bowel sounds 05/19/2015 None Full Exam - General 1994 Lymphatic neck nodes Overall: anterior cervical chain benign 05/19/2015 None Full Exam - General 1994 Lymphatic neck nodes Overall: posterior cervical chain benign 05/19/2015 None Full Exam - General 1994 Musculoskeletal head and neck Overall: head atraumatic 05/19/2015 None Full Exam - General 1994 Integument inspection of skin Overall: no rash, lesions 05/19/2015 None Full Exam - General 1994 Neurologic gait Conventional walking: shuffling 05/19/2015 None Full Exam - General 1994 Neurologic cranial nerves Overall: crainial nerves 2 - 12 grossly intact 05/19/2015 None Full Exam - General 1994 Neurologic motor Appearance: tremor 05/19/2015 None Full Exam - General 1994 Psychiatric orientation/consciousness Overall: oriented to person, place and time 05/19/2015 None Full Exam - General 1994 Musculoskeletal upper extremity Palpation - shoulder: tenderness @ bicipital groove 05/19/2015 None Full Exam - General 1994 Constitutional general appearance Overall: well developed 01/14/2015 None Full Exam - General 1994 Constitutional general appearance Overall: in no acute distress 01/14/2015 None Full Exam - General 1994 Constitutional general appearance Overall: well nourished 01/14/2015 None Full Exam - General 1994 Eyes conjunctiva /eyelids Overall: conjunctiva clear 01/14/2015 None Full Exam - General 1994 Eyes pupils and irises Overall: pupils equal, round, reactive to light and accomodation 01/14/2015 None Full Exam - General 1994 Ears/Nose/Throat otoscopic exam Overall: external auditory canals clear 01/14/2015 None Full Exam - General 1994 Ears/Nose/Throat otoscopic exam Overall: tympanic membranes clear 01/14/2015 None Full Exam - General 1994 Ears/Nose/Throat oral cavity/pharynx/larynx Overall: oral mucosa clear 01/14/2015 None Full Exam - General 1994 Respiratory auscultation Overall: breath sounds clear bilaterally 01/14/2015 None Full Exam - General 1994 Respiratory respiratory effort/rhythm Overall: no retractions 01/14/2015 None Full Exam - General 1994 Respiratory respiratory effort/rhythm Overall: normal rate 01/14/2015 None Full Exam - General 1994 Cardiovascular auscultation of heart Overall: regular rate 01/14/2015 None Full Exam - General 1994 Cardiovascular auscultation of heart Overall: normal heart sounds 01/14/2015 None Full Exam - General 1994 Abdomen abdominal exam Overall: no tenderness 01/14/2015 None Full Exam - General 1994 Abdomen abdominal exam Overall: normal bowel sounds 01/14/2015 None Full Exam - General 1994 Lymphatic neck nodes Overall: anterior cervical chain benign 01/14/2015 None Full Exam - General 1994 Lymphatic neck nodes Overall: posterior cervical chain benign 01/14/2015 None Full Exam - General 1994 Musculoskeletal head and neck Overall: head atraumatic 01/14/2015 None Full Exam - General 1994 Integument inspection of skin Overall: no rash, lesions 01/14/2015 None Full Exam - General 1994 Neurologic gait Conventional walking: shuffling 01/14/2015 None Full Exam - General 1994 Neurologic cranial nerves Overall: crainial nerves 2 - 12 grossly intact 01/14/2015 None Full Exam - General 1994 Neurologic motor Appearance: tremor 01/14/2015 None Full Exam - General 1994 Psychiatric orientation/consciousness Overall: oriented to person, place and time 01/14/2015 None Full Exam - General 1994 Constitutional general appearance Overall: well developed 10/15/2014 None Full Exam - General 1994 Constitutional general appearance Overall: in no acute distress 10/15/2014 None Full Exam - General 1994 Constitutional general appearance Overall: well nourished 10/15/2014 None Full Exam - General 1994 Eyes conjunctiva /eyelids Overall: conjunctiva clear 10/15/2014 None Full Exam - General 1994 Eyes pupils and irises Overall: pupils equal, round, reactive to light and accomodation 10/15/2014 None Full Exam - General 1994 Ears/Nose/Throat otoscopic exam Overall: external auditory canals clear 10/15/2014 None Full Exam - General 1994 Ears/Nose/Throat otoscopic exam Overall: tympanic membranes clear 10/15/2014 None Full Exam - General 1994 Ears/Nose/Throat oral cavity/pharynx/larynx Overall: oral mucosa clear 10/15/2014 None Full Exam - General 1994 Respiratory auscultation Overall: breath sounds clear bilaterally 10/15/2014 None Full Exam - General 1994 Respiratory respiratory effort/rhythm Overall: no retractions 10/15/2014 None Full Exam - General 1994 Respiratory respiratory effort/rhythm Overall: normal rate 10/15/2014 None Full Exam - General 1994 Cardiovascular auscultation of heart Overall: regular rate 10/15/2014 None Full Exam - General 1994 Cardiovascular auscultation of heart Overall: normal heart sounds 10/15/2014 None Full Exam - General 1994 Abdomen abdominal exam Overall: no tenderness 10/15/2014 None Full Exam - General 1994 Abdomen abdominal exam Overall: normal bowel sounds 10/15/2014 None Full Exam - General 1994 Lymphatic neck nodes Overall: anterior cervical chain benign 10/15/2014 None Full Exam - General 1994 Lymphatic neck nodes Overall: posterior cervical chain benign 10/15/2014 None Full Exam - General 1994 Musculoskeletal head and neck Overall: head atraumatic 10/15/2014 None Full Exam - General 1994 Integument inspection of skin Overall: no rash, lesions 10/15/2014 None Full Exam - General 1994 Neurologic gait Conventional walking: shuffling 10/15/2014 None Full Exam - General 1994 Neurologic cranial nerves Overall: crainial nerves 2 - 12 grossly intact 10/15/2014 None Full Exam - General 1994 Neurologic motor Appearance: tremor 10/15/2014 None Full Exam - General 1994 Psychiatric orientation/consciousness Overall: oriented to person, place and time 10/15/2014 None Full Exam - General 1994 Constitutional general appearance Overall: well developed 09/12/2014 None Full Exam - General 1994 Constitutional general appearance Overall: in no acute distress 09/12/2014 None Full Exam - General 1994 Constitutional general appearance Overall: well nourished 09/12/2014 None Full Exam - General 1994 Eyes conjunctiva /eyelids Overall: conjunctiva clear 09/12/2014 None Full Exam - General 1994 Eyes pupils and irises Overall: pupils equal, round, reactive to light and accomodation 09/12/2014 None Full Exam - General 1994 Ears/Nose/Throat otoscopic exam Overall: external auditory canals clear 09/12/2014 None Full Exam - General 1994 Ears/Nose/Throat otoscopic exam Overall: tympanic membranes clear 09/12/2014 None Full Exam - General 1994 Ears/Nose/Throat oral cavity/pharynx/larynx Overall: oral mucosa clear 09/12/2014 None Full Exam - General 1994 Respiratory auscultation Overall: breath sounds clear bilaterally 09/12/2014 None Full Exam - General 1994 Respiratory respiratory effort/rhythm Overall: no retractions 09/12/2014 None Full Exam - General 1994 Respiratory respiratory effort/rhythm Overall: normal rate 09/12/2014 None Full Exam - General 1994 Cardiovascular auscultation of heart Overall: regular rate 09/12/2014 None Full Exam - General 1994 Cardiovascular auscultation of heart Overall: normal heart sounds 09/12/2014 None Full Exam - General 1994 Abdomen abdominal exam Overall: no tenderness 09/12/2014 None Full Exam - General 1994 Abdomen abdominal exam Overall: normal bowel sounds 09/12/2014 None Full Exam - General 1994 Lymphatic neck nodes Overall: anterior cervical chain benign 09/12/2014 None Full Exam - General 1994 Lymphatic neck nodes Overall: posterior cervical chain benign 09/12/2014 None Full Exam - General 1994 Musculoskeletal head and neck Overall: head atraumatic 09/12/2014 None Full Exam - General 1994 Integument inspection of skin Overall: no rash, lesions 09/12/2014 None Full Exam - General 1994 Neurologic gait Conventional walking: shuffling 09/12/2014 None Full Exam - General 1994 Neurologic cranial nerves Overall: crainial nerves 2 - 12 grossly intact 09/12/2014 None Full Exam - General 1994 Neurologic motor Appearance: tremor 09/12/2014 None Full Exam - General 1994 Psychiatric orientation/consciousness Overall: oriented to person, place and time 09/12/2014 None Full Exam - General 1994 Constitutional general appearance Overall: well developed 08/20/2014 None Full Exam - General 1994 Constitutional general appearance Overall: in no acute distress 08/20/2014 None Full Exam - General 1994 Constitutional general appearance Overall: well nourished 08/20/2014 None Full Exam - General 1994 Psychiatric orientation/consciousness Overall: oriented to person, place and time 08/20/2014 None Full Exam - General 1994 Neurologic cranial nerves Overall: crainial nerves 2 - 12 grossly intact 08/20/2014 None Full Exam - General 1994 Neurologic motor Appearance: tremor 08/20/2014 None Full Exam - General 1994 Neurologic gait Conventional walking: shuffling 08/20/2014 None Full Exam - General 1994 Integument inspection of skin Overall: no rash, lesions 08/20/2014 None Full Exam - General 1994 Musculoskeletal head and neck Overall: head atraumatic 08/20/2014 None Full Exam - General 1994 Lymphatic neck nodes Overall: anterior cervical chain benign 08/20/2014 None Full Exam - General 1994 Lymphatic neck nodes Overall: posterior cervical chain benign 08/20/2014 None Full Exam - General 1994 Abdomen abdominal exam Overall: no tenderness 08/20/2014 None Full Exam - General 1994 Abdomen abdominal exam Overall: normal bowel sounds 08/20/2014 None Full Exam - General 1994 Cardiovascular auscultation of heart Overall: regular rate 08/20/2014 None Full Exam - General 1994 Cardiovascular auscultation of heart Overall: normal heart sounds 08/20/2014 None Full Exam - General 1994 Respiratory auscultation Overall: breath sounds clear bilaterally 08/20/2014 None Full Exam - General 1994 Respiratory respiratory effort/rhythm Overall: no retractions 08/20/2014 None Full Exam - General 1994 Respiratory respiratory effort/rhythm Overall: normal rate 08/20/2014 None Full Exam - General 1994 Ears/Nose/Throat otoscopic exam Overall: external auditory canals clear 08/20/2014 None Full Exam - General 1994 Ears/Nose/Throat otoscopic exam Overall: tympanic membranes clear 08/20/2014 None Full Exam - General 1994 Ears/Nose/Throat oral cavity/pharynx/larynx Overall: oral mucosa clear 08/20/2014 None Full Exam - General 1994 Eyes conjunctiva /eyelids Overall: conjunctiva clear 08/20/2014 None Full Exam - General 1994 Eyes pupils and irises Overall: pupils equal, round, reactive to light and accomodation 08/20/2014 None Procedures Procedure Codes Date PPPS, SUBSEQ VISIT CPT -4: G0439 01/07/2017 ADMIN INFLUENZA VIRUS VAC CPT-4: G0008 12/13/2016 FLU VACC PRSV FREE INC ANTIG CPT-4: 91359 12/13/2016 URINALYSIS NONAUTO W/O SCOPE CPT-4: 51524 09/06/2016 TRIAMCINOLONE ACET INJ NOS CPT-4: J3301 08/04/2015 DRAIN/INJECT JOINT/BURSA CPT-4: 62256 08/04/2015 Vital Signs Date Vital 04/14/2017 Blood Pressure 1: 134/80 Code : 8480-6 Heart Rate 1: 82 bpm Height: 5'9" Respiratory Rate: 25 bpm SpO2: 97% Weight: 02/15/2017 Blood Pressure 1: 136/80 Code : 8480-6 BMI: 20.1 Code : 36668-4 Heart Rate 1 : 90 bpm Height: 5'9" SpO2: 97% Weight: 136 lbs 02/01/2017 Blood Pressure 1: 136/76 Code : 8480-6 BMI: 19.6 Code : 22615-0 Heart Rate 1 : 76 bpm Height: 5'9" SpO2: 99% Weight: 133 lbs 01/07/2017 Blood Pressure 1: 144/70 Code : 8480-6 BMI: 19.2 Code : 15641-1 Heart Rate 1 : 84 bpm Height: 5'9" SpO2: 99% Weight: 130 lbs 12/13/2016 Blood Pressure 1: 136/72 Code : 8480-6 BMI: 19.2 Code : 41020-6 Heart Rate 1 : 76 bpm Height: 5'9" SpO2: 98% Weight: 130 lbs 11/16/2016 Blood Pressure 1: 144/70 Code : 8480-6 BMI: 19.2 Code : 97784-5 Heart Rate 1 : 67 bpm Height: 5'9" SpO2: 97% Weight: 130 lbs 10/14/2016 Blood Pressure 1: 122/70 Code : 8480-6 BMI: 19.1 Code : 50762-9 Heart Rate 1 : 76 bpm Height: 5'9" SpO2: 96% Weight: 129 lbs 8 oz 09/16/2016 Blood Pressure 1: 132/72 Code : 8480-6 BMI: 19.3 Code : 18176-6 Heart Rate 1 : 98 bpm Height: 5'9" SpO2: 98% Weight: 131 lbs 09/06/2016 Blood Pressure 1: 136/80 Code : 8480-6 BMI: 19.3 Code : 46672-7 Heart Rate 1 : 77 bpm Height: 5'9" SpO2: 97% Weight: 131 lbs 08/12/2016 Blood Pressure 1: 132/78 Code : 8480-6 BMI: 19.6 Code : 81008-8 Heart Rate 1 : 87 bpm Height: 5'9" SpO2: 95% Weight: 133 lbs 04/13/2016 Blood Pressure 1: 132/80 Code : 8480-6 BMI: 19.3 Code : 00703-9 Heart Rate 1 : 69 bpm Height: 5'9" SpO2: 98% Weight: 131 lbs 03/30/2016 Blood Pressure 1: 152/90 Code : 8480-6 Heart Rate 1: 105 bpm Height: 5'9" Respiratory Rate: 24 bpm SpO2: 95% 03/23/2016 Blood Pressure 1: 132/68 Code : 8480-6 Heart Rate 1: 84 bpm SpO2: 95% 01/13/2016 Blood Pressure 1: 138/82 Code : 8480-6 BMI: 20.1 Code : 04044-2 Heart Rate 1 : 93 bpm Height: 5'9" SpO2: 98% Weight: 136 lbs 10/13/2015 Blood Pressure 1: 140/80 Code : 8480-6 BMI: 19.9 Code : 32028-1 Heart Rate 1 : 98 bpm Height: 5'9" SpO2: 90% Weight: 135 lbs 08/04/2015 Blood Pressure 1: 140/70 Code : 8480-6 BMI: 20.8 Code : 96433-1 Heart Rate 1 : 83 bpm Height: 5'9" SpO2: 97% Weight: 141 lbs 05/19/2015 Blood Pressure 1: 132/72 Code : 8480-6 BMI: 20.8 Code : 55943-8 Heart Rate 1 : 88 bpm Height: 5'9" SpO2: 96% Weight: 141 lbs 01/14/2015 Blood Pressure 1: 120/64 Code : 8480-6 BMI: 20.4 Code : 70514-6 Heart Rate 1 : 77 bpm Height: 5'9" SpO2: 96% Weight: 138 lbs 10/15/2014 Blood Pressure 1: 136/68 Code : 8480-6 BMI: 19.5 Code : 40858-6 Heart Rate 1 : 91 bpm Height: 5'9" SpO2: 96% Weight: 132 lbs 09/12/2014 Blood Pressure 1: 122/72 Code : 8480-6 BMI: 19.0 Code : 60721-2 Heart Rate 1 : 71 bpm Height: 5'9" SpO2: 97% Weight: 129 lbs 08/20/2014 Blood Pressure 1: 138/90 Code : 8480-6 BMI: 18.8 Code : 67742-6 Heart Rate 1 : 92 bpm Height: 5'10" SpO2: 97% Weight: 129 lbs Functional Status No Functional Status data History of Present Illness Symptom Name Status Result Effective Date Notes skin lesion Quality enlarging 04/14/2017 None skin lesion Onset and Resolution sudden in onset 04/14/2017 None skin lesion Location in the upper neck area 04/14/2017 None shortness of breath Quality breathlessness 04/14/2017 None shortness of breath Quality intermittent 04/14/2017 None shortness of breath Quality stable 04/14/2017 None shortness of breath Onset and Resolution ongoing 04/14/2017 None shortness of breath Onset of Symptom during adulthood 04/14/2017 None shortness of breath Significant Family History pulmonary disease 04/14/2017 None shortness of breath Significant Medical Conditions pulmonary disease 04/14/2017 None shortness of breath Triggers activity 04/14/2017 None shortness of breath Triggers exertion 04/14/2017 None shortness of breath Alleviating Factors rest 04/14/2017 None shortness of breath Alleviating Factors getting fresh air 04/14/2017 None shortness of breath Alleviating Factors medication 04/14/2017 (xanax) hypertension Quality primary hypertension 04/14/2017 None hypertension Onset and Resolution ongoing 04/14/2017 None hypertension Onset of Symptom during adulthood 04/14/2017 None hypertension Blood Pressure Values not checking blood pressure at home 04/14/2017 None hypertension Alleviating Factors medication 04/14/2017 None hypertension Pertinent Findings Denies dizziness 04/14/2017 None hypertension Pertinent Findings dyspnea 04/14/2017 -intermittent hypertension Pertinent Findings edema 04/14/2017 in her right leg- wears compression hose bilaterally skin lesion Quality enlarging 02/15/2017 None skin lesion Onset and Resolution sudden in onset 02/15/2017 None skin lesion Location in the upper neck area 02/15/2017 None shortness of breath Quality breathlessness 02/01/2017 None shortness of breath Quality intermittent 02/01/2017 None shortness of breath Quality stable 02/01/2017 None shortness of breath Onset and Resolution ongoing 02/01/2017 None shortness of breath Onset of Symptom during adulthood 02/01/2017 None shortness of breath Significant Family History pulmonary disease 02/01/2017 None shortness of breath Significant Medical Conditions pulmonary disease 02/01/2017 None shortness of breath Triggers activity 02/01/2017 None shortness of breath Triggers exertion 02/01/2017 None shortness of breath Alleviating Factors rest 02/01/2017 None shortness of breath Alleviating Factors getting fresh air 02/01/2017 None shortness of breath Alleviating Factors medication 02/01/2017 (xanax) hypertension Quality primary hypertension 02/01/2017 None hypertension Onset and Resolution ongoing 02/01/2017 None hypertension Onset of Symptom during adulthood 02/01/2017 None hypertension Blood Pressure Values not checking blood pressure at home 02/01/2017 None hypertension Alleviating Factors medication 02/01/2017 None hypertension Pertinent Findings Denies dizziness 02/01/2017 None hypertension Pertinent Findings dyspnea 02/01/2017 -intermittent hypertension Pertinent Findings edema 02/01/2017 in her right leg- wears compression hose bilaterally Annual Medicare Wellness Exam Alcohol Use does not drink any alcohol 01/07/2017 None Annual Medicare Wellness Exam Aspirin Use yes 01/07/2017 None Annual Medicare Wellness Exam Blood Glucose (self reported) don't know 01/07/2017 None Annual Medicare Wellness Exam Blood Pressure (self reported ) low / normal (120/80) 01/07/2017 None Annual Medicare Wellness Exam Cholesterol (self reported) don't know 01/07/2017 None Annual Medicare Wellness Exam Depression (last 6 months) almost never 01/07/2017 None Annual Medicare Wellness Exam Depression or Hopelessness almost never 01/07/2017 None Annual Medicare Wellness Exam Describe Your Health fair 01/07/2017 None Annual Medicare Wellness Exam Exercise Habits exercises 2 days per week 01/07/2017 None Annual Medicare Wellness Exam Exercise Habits exercises 60 minutes per day 01/07/2017 None Annual Medicare Wellness Exam Handling Stress usually alesha effectively 01/07/2017 None Annual Medicare Wellness Exam Hemaglobin A-1C (self reported ) don't know 01/07/2017 None Annual Medicare Wellness Exam Hours of Sleep 6 01/07/2017 None Annual Medicare Wellness Exam Interaction with Friends yes 01/07/2017 None Annual Medicare Wellness Exam Interests & Pleasure most of the time 01/07/2017 None Annual Medicare Wellness Exam Life Satisfaction very satisfied 01/07/2017 None Annual Medicare Wellness Exam Motor Vehicle Safety always fastens seat belt: y 01/07/2017 None Annual Medicare Wellness Exam Motor Vehicle Safety drives after drinking: n 01/07/2017 None Annual Medicare Wellness Exam Motor Vehicle Safety rides with someone who has been drinking: n 2016 None Annual Medicare Wellness Exam Nutrition servings of fried food / high fat foods per day: 1 2016 None Annual Medicare Wellness Exam Nutrition servings of high fiber / whole grain per day: 2 01/07/2017 None Annual Medicare Wellness Exam Nutrition servings of vegetables / fruit per day: 2 01/07/2017 None Annual Medicare Wellness Exam Smoking and Tobacco Use non smoker 01/07/2017 None Annual Medicare Wellness Exam Social & Emotional Support always 01/07/2017 None Annual Medicare Wellness Exam Stress almost never 01/07/2017 None Annual Medicare Wellness Exam Sun Exposure protects skin when outdoors: y 01/07/2017 None shortness of breath Quality breathlessness 12/13/2016 None shortness of breath Quality intermittent 12/13/2016 None shortness of breath Quality stable 12/13/2016 None shortness of breath Onset and Resolution ongoing 12/13/2016 None shortness of breath Onset of Symptom during adulthood 12/13/2016 None shortness of breath Significant Family History pulmonary disease 12/13/2016 None shortness of breath Significant Medical Conditions pulmonary disease 12/13/2016 None shortness of breath Triggers activity 12/13/2016 None shortness of breath Triggers exertion 12/13/2016 None shortness of breath Alleviating Factors rest 12/13/2016 None shortness of breath Alleviating Factors getting fresh air 12/13/2016 None hypertension Quality primary hypertension 12/13/2016 None hypertension Onset and Resolution ongoing 12/13/2016 None hypertension Onset of Symptom during adulthood 12/13/2016 None shortness of breath Alleviating Factors medication 12/13/2016 (xanax) hypertension Blood Pressure Values not checking blood pressure at home 12/13/2016 None hypertension Alleviating Factors medication 12/13/2016 None hypertension Pertinent Findings Denies dizziness 12/13/2016 None hypertension Pertinent Findings dyspnea 12/13/2016 -intermittent hypertension Pertinent Findings edema 12/13/2016 -mild shortness of breath Quality breathlessness 11/16/2016 None shortness of breath Quality intermittent 11/16/2016 None shortness of breath Quality stable 11/16/2016 None shortness of breath Onset and Resolution ongoing 11/16/2016 None shortness of breath Onset of Symptom during adulthood 11/16/2016 None shortness of breath Significant Family History pulmonary disease 11/16/2016 None shortness of breath Significant Medical Conditions pulmonary disease 11/16/2016 None shortness of breath Triggers activity 11/16/2016 None shortness of breath Triggers exertion 11/16/2016 None shortness of breath Alleviating Factors rest 11/16/2016 None shortness of breath Alleviating Factors getting fresh air 11/16/2016 None shortness of breath Quality breathlessness 10/14/2016 None shortness of breath Quality intermittent 10/14/2016 None shortness of breath Quality stable 10/14/2016 None shortness of breath Onset and Resolution ongoing 10/14/2016 None shortness of breath Onset of Symptom during adulthood 10/14/2016 None shortness of breath Significant Family History pulmonary disease 10/14/2016 None shortness of breath Significant Medical Conditions pulmonary disease 10/14/2016 None shortness of breath Triggers activity 10/14/2016 None shortness of breath Triggers exertion 10/14/2016 None shortness of breath Alleviating Factors rest 10/14/2016 None shortness of breath Alleviating Factors getting fresh air 10/14/2016 None Hospital Follow Up _ infection 09/16/2016 UTI Hospital Follow Up _ Other: dehydration 09/16/2016 None Hospital Follow Up Quality acute illness 09/16/2016 None Hospital Follow Up Pertinent Findings other neurologic symptoms 09/16/2016 confusion Hospital Follow Up Pertinent Findings Other: UTI, dehydration 09/16/2016 None chest pain/pressure Location on the left side of on the chest 09/06/2016 None chest pain/pressure Pertinent Findings anxiety 09/06/2016 None chest pain/pressure Pertinent Findings back pain 09/06/2016 None chest pain/pressure Onset of Symptom _ weeks ago 09/06/2016 None chest pain/pressure Onset and Resolution ongoing 09/06/2016 None chest pain/pressure Limitation on Activities does not limit activities 09/06/2016 None chest pain/pressure Triggers no known associated factors 09/06/2016 None chest pain/pressure Exacerbating Factors deep breathing 09/06/2016 None shortness of breath Quality stable 08/12/2016 None shortness of breath Onset and Resolution ongoing 08/12/2016 None shortness of breath Onset of Symptom during adulthood 08/12/2016 None shortness of breath Significant Family History pulmonary disease 08/12/2016 None shortness of breath Significant Medical Conditions pulmonary disease 08/12/2016 None shortness of breath Triggers activity 08/12/2016 None shortness of breath Triggers exertion 08/12/2016 None shortness of breath Alleviating Factors rest 08/12/2016 None shortness of breath Alleviating Factors getting fresh air 08/12/2016 None shortness of breath Quality intermittent 08/12/2016 None shortness of breath Quality breathlessness 08/12/2016 None dyspnea Quality breathlessness 04/13/2016 None dyspnea Quality intermittent 04/13/2016 None dyspnea Quality shortness of breath 04/13/2016 None dyspnea Onset and Resolution ongoing 04/13/2016 None dyspnea Frequency of Episodes daily 04/13/2016 None dyspnea Alleviating Factors rest 04/13/2016 and oxygen dyspnea Exacerbating Factors exertion 04/13/2016 None dyspnea Exacerbating Factors eating 04/13/2016 None dyspnea Exacerbating Factors lying down 04/13/2016 None dyspnea Alleviating Factors medication 04/13/2016 None dyspnea Pertinent Findings lethargy 04/13/2016 especially in the evenings mental status change Quality disorientation 04/13/2016 None mental status change Quality confusion 04/13/2016 None mental status change Quality intermittent 04/13/2016 None mental status change Onset and Resolution ongoing 04/13/2016 None mental status change Pertinent Findings dyspnea 04/13/2016 None Hospital Follow Up _ cardiac disease 03/30/2016 None Hospital Follow Up Quality improving 03/30/2016 slightly Hospital Follow Up Severity moderate 03/30/2016 None Hospital Follow Up _ cardiac disease 03/23/2016 None Hospital Follow Up Quality chronic illness 03/23/2016 None Hospital Follow Up Quality acute 03/23/2016 None Hospital Follow Up Pertinent Findings Denies fever 03/23/2016 None Hospital Follow Up Pertinent Findings Denies pain 03/23/2016 None shortness of breath Onset and Resolution ongoing 01/13/2016 None shortness of breath Onset of Symptom during adulthood 01/13/2016 None shortness of breath Significant Family History pulmonary disease 01/13/2016 None shortness of breath Significant Medical Conditions pulmonary disease 01/13/2016 None shortness of breath Triggers activity 01/13/2016 None shortness of breath Triggers exertion 01/13/2016 None shortness of breath Alleviating Factors rest 01/13/2016 None shortness of breath Alleviating Factors getting fresh air 01/13/2016 None shortness of breath Pertinent Findings Denies chest discomfort 01/13/2016 None shortness of breath Pertinent Findings Denies lightheadedness 01/13/2016 None diaphoresis Quality intermittent 01/13/2016 None diaphoresis Onset and Resolution ongoing 01/13/2016 None diaphoresis Onset of Symptom 2-3 months ago 01/13/2016 None diaphoresis Timing of Episodes at night 01/13/2016 None diaphoresis Timing of Episodes during sleep 01/13/2016 None diaphoresis Triggers no known associated factors 01/13/2016 None shortness of breath Onset and Resolution ongoing 10/13/2015 None shortness of breath Onset of Symptom during adulthood 10/13/2015 None shortness of breath Significant Family History pulmonary disease 10/13/2015 None shortness of breath Significant Medical Conditions pulmonary disease 10/13/2015 None shortness of breath Triggers activity 10/13/2015 None shortness of breath Pertinent Findings Denies chest discomfort 10/13/2015 None shortness of breath Pertinent Findings Denies lightheadedness 10/13/2015 None weight loss Quality improving 10/13/2015 None shortness of breath Quality stable 10/13/2015 None shortness of breath Triggers exertion 10/13/2015 None shortness of breath Alleviating Factors getting fresh air 10/13/2015 None shortness of breath Alleviating Factors rest 10/13/2015 None new lesion Location-Major on the arms 10/13/2015 None new lesion Location-Major on the legs 10/13/2015 None shoulder pain Quality constant 08/04/2015 None shoulder pain Quality dull 08/04/2015 None shoulder pain Quality aching 08/04/2015 None shoulder pain Quality sharp 08/04/2015 None shoulder pain Onset and Resolution gradual in onset 08/04/2015 None shoulder pain Onset of Symptom 6 months ago 08/04/2015 None shoulder pain Frequency of Episodes daily 08/04/2015 None shortness of breath Limitation on Activities moderately limits activities 05/19/2015 None shortness of breath Frequency of Episodes decreasing 05/19/2015 None shortness of breath Significant Family History pulmonary disease 05/19/2015 None shortness of breath Significant Medical Conditions pulmonary disease 05/19/2015 None shortness of breath Triggers activity 05/19/2015 None shortness of breath Alleviating Factors medication 05/19/2015 None shortness of breath Pertinent Findings Denies chest discomfort 05/19/2015 None shortness of breath Pertinent Findings edema 05/19/2015 right lower leg shortness of breath Pertinent Findings Denies lightheadedness 05/19/2015 None weight loss Quality improving 05/19/2015 None weight loss Onset and Resolution ongoing 05/19/2015 None shortness of breath Onset and Resolution ongoing 05/19/2015 None shortness of breath Quality improving 05/19/2015 None shortness of breath Onset of Symptom during adulthood 05/19/2015 None edema Location on the right leg 05/19/2015 None edema Quality intermittent 05/19/2015 None abnormal bleeding and bruising Exacerbating Factors medication 05/19/2015 None abnormal bleeding and bruising Location on the right arm 05/19/2015 None abnormal bleeding and bruising Onset and Resolution ongoing 05/19/2015 None edema Onset of Symptom 2 weeks ago 05/19/2015 None shortness of breath Limitation on Activities moderately limits activities 01/14/2015 None shortness of breath Significant Family History pulmonary disease 01/14/2015 None shortness of breath Significant Medical Conditions pulmonary disease 01/14/2015 None shortness of breath Significant Medications beta agonist inhaler 01/14/2015 None shortness of breath Triggers activity 01/14/2015 None shortness of breath Alleviating Factors medication 01/14/2015 None shortness of breath Pertinent Findings Denies lightheadedness 01/14/2015 when she first stands up shortness of breath Pertinent Findings Denies edema 01/14/2015 None shortness of breath Pertinent Findings Denies chest discomfort 01/14/2015 None shortness of breath Frequency of Episodes decreasing 01/14/2015 None weight loss Quality improving 01/14/2015 None weight loss Onset and Resolution ongoing 01/14/2015 None shortness of breath Onset and Resolution ongoing 10/15/2014 None shortness of breath Onset of Symptom 2 weeks ago 10/15/2014 None shortness of breath Limitation on Activities moderately limits activities 10/15/2014 None shortness of breath Frequency of Episodes unchanged 10/15/2014 using prn oxygen. Wondering if she is supposed to use nebulizer- Rosalino brought it to her and then told her not to use it?? shortness of breath Significant Family History pulmonary disease 10/15/2014 None shortness of breath Significant Medical Conditions pulmonary disease 10/15/2014 None shortness of breath Significant Medications beta agonist inhaler 10/15/2014 None shortness of breath Triggers activity 10/15/2014 None shortness of breath Alleviating Factors medication 10/15/2014 None shortness of breath Pertinent Findings chest discomfort 10/15/2014 has a little bit of discomfort intermittently when she gets to breathing hard shortness of breath Pertinent Findings edema 10/15/2014 bilateral lower extremities- was unable to get shoes on- shortness of breath Pertinent Findings lightheadedness 10/15/2014 when she first stands up weight loss Quality chronic 10/15/2014 None weight loss Onset and Resolution ongoing 10/15/2014 None weight loss Onset of Symptom 2.5 years ago 10/15/2014 reports that she eats good and has a good appetite. shortness of breath Onset of Symptom 2 weeks ago 09/12/2014 None weight loss Onset and Resolution ongoing 09/12/2014 None weight loss Onset of Symptom 2.5 years ago 09/12/2014 reports that she eats good and has a good appetite. shortness of breath Onset and Resolution ongoing 09/12/2014 None shortness of breath Frequency of Episodes unchanged 09/12/2014 using prn oxygen. Wondering if she is supposed to use nebulizer- Rosalino brought it to her and then told her not to use it?? shortness of breath Pertinent Findings chest discomfort 09/12/2014 has a little bit of discomfort intermittently when she gets to breathing hard shortness of breath Pertinent Findings lightheadedness 09/12/2014 when she first stands up shortness of breath Pertinent Findings edema 09/12/2014 bilateral lower extremities- was unable to get shoes on- edema Location on the right ankle 09/12/2014 None edema Location on the left ankle 09/12/2014 None edema Onset and Resolution ongoing 09/12/2014 reports over last 5-6 weeks has gotten better edema Pertinent Findings dyspnea 09/12/2014 None weight loss Quality chronic 09/12/2014 None shortness of breath Limitation on Activities moderately limits activities 09/12/2014 None shortness of breath Significant Family History pulmonary disease 09/12/2014 None shortness of breath Significant Medical Conditions pulmonary disease 09/12/2014 None shortness of breath Significant Medications beta agonist inhaler 09/12/2014 None shortness of breath Triggers activity 09/12/2014 None shortness of breath Alleviating Factors medication 09/12/2014 None shortness of breath Onset of Symptom 2 weeks ago 08/20/2014 reports hard to catch her breath- using Ventolin inhaler prn. seems to help, but when she gets real bad she seems to get weak. gastroesophageal reflux Onset of Symptom _ years ago 08/20/2014 None gastroesophageal reflux Frequency of Episodes decreasing 08/20/2014 symptoms are gone with Sucralfate, Omeprazole and Famotidine. gastroesophageal reflux Pertinent Findings dyspnea 08/20/2014 None weight loss Onset and Resolution ongoing 08/20/2014 None weight loss Onset of Symptom 2.5 years ago 08/20/2014 reports that she eats good and has a good appetite. Advance Directives No Advance Directive data Encounters Encounter Performer Location Codes Date ([id number]) [id number] EST. PATIENT, LEVEL IV Diagnosis: Parkinson's disease[ICD10: G20] Diagnosis: Essential (primary) hypertension[ICD10: I10] Diagnosis: Muscle weakness (generalized)[ICD10: M62.81] Diagnosis: Shortness of breath[ICD10: R06.02] Diagnosis: Vitamin D deficiency, unspecified[ICD10: E55.9] Jazz Bonds MD, [facility] CPT-4: 29266 04/14/2017 [id number]) 21498 EST. PATIENT, LEVEL IV Diagnosis: Localized enlarged lymph nodes[ICD10: R59.0] Diagnosis: Muscle weakness (generalized)[ICD10: M62.81] Diagnosis: Parkinson's disease[ICD10: G20] Jazz Bonds MD, [facility] CPT- 4: 17797 02/15/2017 [id number]) 81570 EST. 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 PATIENT, LEVEL III Diagnosis: Essential (primary) hypertension[ICD10: I10] Diagnosis: Dehydration[ICD10: E86.0] Josefa Bonds MD, [facility] CPT-4: 37198 09/16/2016 ([id number]) 73419 EST. 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 PATIENT, LEVEL IV Diagnosis: Essential (primary) hypertension[ICD10: I10] Diagnosis: Parkinson's disease[ICD10: G20] Diagnosis: Major depressive disorder, recurrent, mild[ICD10: F33.0] Jazz Bonds MD, [facility] CPT-4: 56963 04/13/2016 ([id number]) 25580 EST. PATIENT, LEVEL IV Diagnosis: Parkinson's disease[ICD10: G20] Diagnosis: Acute combined systolic (congestive) and diastolic (congestive) heart failure[ICD10: I50.41] Diagnosis: Chronic obstructive pulmonary disease with acute lower respiratory infection[ICD10: J44.0] Jazz Bonds MD, [facility] CPT-4: 19316 03/30/2016 29294 EST. PATIENT, LEVEL III Diagnosis: Parkinson's disease[ICD10: G20] Diagnosis: Acute combined systolic (congestive) and diastolic (congestive) heart failure[ICD10: I50.41] Diagnosis: Shortness of breath[ICD10: R06.02] Venice Bodns MD, [facility] CPT-4: 86657 03/23/2016 ([id number]) 95529 EST. PATIENT, LEVEL IV Diagnosis: Parkinson's disease[ICD10: G20] Diagnosis: Vitamin D deficiency, unspecified[ICD10: E55.9] Diagnosis: Other forms of dyspnea[ICD10: R06.09] Diagnosis: Chronic obstructive pulmonary disease with acute lower respiratory infection[ICD10: J44.0] Diagnosis: Major depressive disorder, recurrent, mild[ICD10: F33.0] Jazz Bonds MD, [facility] CPT-4: 34128 01/13/2016 ([id number]) 37062 EST. PATIENT, LEVEL III Diagnosis: Parkinson's disease[ICD10: G20] Jazz Bonds MD, [facility] CPT- 4: 69222 10/13/2015 86424 EST. PATIENT, LEVEL III Diagnosis: Pain in right shoulder[ICD10: M25.511] Venice Bonds MD, [facility] CPT-4: 88038 08/04/2015 ([id number]) 67946 EST. PATIENT, LEVEL IV Diagnosis: Parkinson's disease[ICD10: G20] Diagnosis: Vitamin D deficiency, unspecified[ICD10: E55.9] Diagnosis: Pain in right shoulder[ICD10: M25.511] Jazz Bonds MD, [facility] CPT-4: 00054 05/19/2015 [id number]) 81473 EST. PATIENT, LEVEL IV Diagnosis: Parkinson's disease[ICD10: G20] Diagnosis: Chronic obstructive pulmonary disease with acute lower respiratory infection[ICD10: J44.0] Jazz Bonds MD, [facility] CPT-4: 55988 01/14/2015 ([id number]) 55849 EST. PATIENT, LEVEL III Diagnosis: COPD (chronic obstructive pulmonary disease)[ICD9: 496] Diagnosis: SHORTNESS OF BREATH[ICD9: 786.05] Diagnosis: Parkinsons disease[ICD9: 332.0] Jazz Bonds MD, [facility] CPT- 4: 54168 10/15/2014 ([id number]) 86113 EST. PATIENT, LEVEL IV Diagnosis: COPD (chronic obstructive pulmonary disease)[ICD9: 496] Diagnosis: Lesion of ear[ICD9: 380.89] Diagnosis: SHORTNESS OF BREATH[ICD9: 786.05] Josefa Bonds MD, [facility] CPT-4: 42288 09/12/2014 ([id number]) OFFICE VISIT, NEW - LEVEL 4 Diagnosis: COPD (chronic obstructive pulmonary disease)[ICD9: 496] Diagnosis: SHORTNESS OF BREATH[ICD9: 786.05] Diagnosis: Parkinsons disease[ICD9: 332.0] Diagnosis: Bilateral leg cramps[ICD9: 729.82] Diagnosis: VITAMIN D DEFICIENCY[ICD9: 268.9] Josefa Bonds MD, [facility] CPT-4: 76486 08/20/2014 Plan of Care Planned Activity Notes Codes Status Date Visit Plan: Hypertension - well controlled - continue with current medications, continue with no added salt diet. Pt has been encouraged to exercise daily. The pt has been advised to call the office if there are any acute concerns about change in blood pressure readings at home. Lymphadenopathy - resolved Weakness, Parkinson's disease - recommended increase in activity - monitor symptoms - patient is to start leg/thigh strengthening. 04/14/2017 Appointment: Jazz Bonds WPtel: [address] [place], [place] [phone] (15 min) Moderate 04/14/2017 Patient Education: Patient Medication Summary Completed 04/14/2017 Visit Plan: Lymphadenopathy - recommended patient to return to clinic in about 2 months - monitor symptoms - call if swelling is acutely worsening. Weakness, Parkinson's disease - recommended increase in activity - monitor symptoms - patient is to start leg/thigh strengthening. 02/15/2017 Appointment: Jazz Bonds WPtel: [phone] [phone] (15 min) Moderate 02/15/2017 Patient Education: Patient Medication Summary Completed 02/15/2017 Visit Plan: [id number]-patient wears continuous oxygen at 2L per nasal cannula and continues to notice improvement in symptoms with use of oxygen - less fatigue, less shortness of breath, better rest at night and less anxious about breathing. Patient continues to benefit from therapy -will fax note to patient's oxygen supply company-[employer]. 02/01/2017 Appointment: Josefa Gardner WPtel: [phone] [phone] (30 min) Complex 02/01/2017 Patient Education: Patient Medication Summary Completed 02/01/2017 Visit Plan: Medicare Exam - today we discussed the patients past history, immunizations, preventative exams/evaluations - colonoscopy, fecal occult blood testing, routine labs for renal function, glucose, cholesterol, osteoporosis evaluations, cardiovascular testing and cancer screenings. We have also discussed mental health and the signs/symptoms of depression. The patient was advised of home safety evaluations and the need to make sure that as the aging process continues, we need to be aware of different ways to make the home a safer place to reside. The patient has also been counseled that exercise is necessary - and of utmost importance as we age to help decrease fall risk and to maintain independence in the home. Today we discussed the need for the patient to create paperwork for Advanced directives as well as for the patient to provide this office with a copy of her DOPA paperwork for health care surrogate. 01/07/2017 Appointment: Josefa Gardner WPtel: [phone] [phone] [facility] - Annual Wellness Visit 01/07/2017 Patient Education: Patient Medication Summary Completed 01/07/2017 Visit Plan: Hypertension - well controlled - continue with current medications, continue with no added salt diet. Pt has been encouraged to exercise daily. The pt has been advised to call the office if there are any acute concerns about change in blood pressure readings at home. CHF - chronic - with intermittent symptoms - currently stable- use of lasix is PRN only. Pt is not needing to use compression socks at this time. Parkinson's disease - symptoms stable - I have recommended no changes to her current regimen. Depression - chronic - refilled sertraline 50mg daily. Flu shot today in clinic 12/13/2016 [facility]ment[phone] (15 min) Moderate 12/13/2016 Patient Education: Patient Medication Summary Completed 12/13/2016 Visit Plan: CHF - stable - continue with lasix prn-check labs COPD - continue with current treatment - pt going to pulmonary rehab HTN- controlled-no changes 11/16/2016 Appointment: Josefa Gardner [facility]el[phone] (30 min) Complex 11/16/2016 Patient Education: Patient Medication Summary Completed 11/16/2016 Visit Plan: Hypertension - well controlled - continue with current medications, continue with no added salt diet. Pt has been encouraged to exercise daily. The pt has been advised to call the office if there are any acute concerns about change in blood pressure readings at home. Parkinsons- stable-no changes GERD-continue prilosec daily 10/14/2016 Visit Plan: Hypertension - well controlled - continue with current medications, continue with no added salt diet. Pt has been encouraged to exercise daily. The pt has been advised to call the office if there are any acute concerns about change in blood pressure readings at home. Parkinsons- stable-no changes GERD-continue prilosec daily 10/14/2016 Visit Plan: Hypertension - well controlled - continue with current medications, continue with no added salt diet. Pt has been encouraged to exercise daily. The pt has been advised to call the office if there are any acute concerns about change in blood pressure readings at home. Parkinsons- stable-no changes GERD-continue prilosec daily 10/14/2016 Appointment: Josefa Gardner WPtel: [phone] [phone] [place] (30 min) Complex 10/14/2016 Patient Education: Patient Medication Summary Completed 10/14/2016 Appointment: Josefa Gardner WPtel: [phone] [phone] [place] (30 min) Complex 10/07/2016 Appointment: Josefa Gardner WPtel: [facility] [phone] (30 min) Complex 09/27/2016 Visit Plan: HTN-low in the ER-blood pressure stable-no changes Dehydration-ER follow vj-ryirntbx-kgcnq labs 09/16/2016 Appointment: Josefa Gardner WPtel: [facility] [id number] (30 min) Complex 09/16/2016 Patient Education: Patient Medication Summary Completed 09/16/2016 Visit Plan: CHF-check BNP-monitor symptoms-follow up with Dr García next week UTX-mqlentarea-cn change in medications Reflux-daily prilosec daily x 2 weeks 09/06/2016 Patient Education: Patient Medication Summary Completed 09/06/2016 Visit Plan: Hypertension - well controlled - continue with current medications, continue with no added salt diet. Pt has been encouraged to exercise daily. The pt has been advised to call the office if there are any acute concerns about change in blood pressure readings at home. Cardiomyopathy - continue with current treatment, monitor symptoms, call if worsening. EF has decreased to 30%EF. Parkinson's Disease - pt has diagnosis of Parkinson's disease with movement disorder impinging upon daily activities. The pt is to be on sinemet as directed, and medications to be adjusted as appropriate for alleviation of the impairment of ADL's. Pt or pt's family is to alert this office if symptoms worsen. 08/12/2016 Appointment: Jazz Bonds WPtel: [address] [facility] [place] (15 min) Moderate 08/12/2016 Patient Education: Patient Medication Summary Completed 08/12/2016 Appointment: Josefa Gardner WPtel: [phone] [phone] [place] (30 min) Complex 07/12/2016 Visit Plan: Parkinson's Disease - pt has diagnosis of Parkinson's disease with movement disorder impinging upon daily activities. The pt is to be on sinemet as directed, and medications to be adjusted as appropriate for alleviation of the impairment of ADL's. Pt or pt's family is to alert this office if symptoms worsen. CHF - stable - continue with lasix prn COPD - continue with current treatment - pt to go to pulmonary rehab 04/13/2016 Appointment: Jazz Bonds WPtel: [address] [facility] [place] (15 min) Moderate 04/13/2016 Patient Education: Patient Medication Summary Completed 04/13/2016 Appointment: Josefa Gardner WPtel: [phone] [phone] [place] (15 min) Moderate 04/02/2016 Visit Plan: Parkinson's Disease - pt has diagnosis of Parkinson's disease with movement disorder impinging upon daily activities. The pt is to be on sinemet as directed, and medications to be adjusted as appropriate for alleviation of the impairment of ADL's. Pt or pt's family is to alert this office if symptoms worsen. CHF - stable - continue with lasix prn COPD - referral for outpatient pulmonary rehab 03/30/2016 [facility]ment: Jazz Bond[facility]el[facility] [place] (15 min) Moderate 03/30/2016 Patient Education: Patient Medication Summary Completed 03/30/2016 Visit Plan: Hospital follow up - This was a follow up appointment from the patient's hospitalization during which time Dr. Bonds formulated the assessment and plan for the follow up on this patient's medical condition. CHF - congestive heart failure - Pt has Chronic congestive heart failure - and is currently fairly well maintained on the current medications. Today there is no change in the treatment course. If symptoms worsen, increase edema or more that 2-3 pound weight gain over a week without improvement in the symptoms with a decrease in the sodium of the diet, then the pt is to have the office alerted. COPD - chronic problem for this patient. We have reviewed chronic treatment strategy, symptom control, and plans for acute exacerbations. No changes today to the current treatment plan as the patient is stable, monitor for acute changes. 03/23/2016 Appointment: Venice Barcenas WPtel: [facility] [place] (30 min) Complex 03/23/2016 Patient Education: Patient Medication Summary Completed 03/23/2016 Visit Plan: Parkinson's Disease - pt has diagnosis of Parkinson's disease with movement disorder impinging upon daily activities. The pt is to be on sinemet as directed, and medications to be adjusted as appropriate for alleviation of the impairment of ADL's. Pt or pt's family is to alert this office if symptoms worsen. Chronic Depression and anxiety - the pt has symptoms of chronic anxiety and depression that have been fairly well controlled since the last office visit. The pt has expected periods of exacerbation with abatement of the symptoms with change in situational exposure. No change in current medications. 01/13/2016 Patient Education: Patient Medication Summary Completed 01/13/2016 Care Plan: COMPLETE CBC AUTOMATED [facility] : [id number] Pending 01/13/2016 Visit Plan: Parkinson's Disease - pt has diagnosis of Parkinson's disease with movement disorder impinging upon daily activities. The pt is to be on sinemet as directed, and medications to be adjusted as appropriate for alleviation of the impairment of ADL's. Pt or pt's family is to alert this office if symptoms worsen. 10/13/2015 Appointment: Jazz Bonds WPtel: [address] [place], [place] [id number] (15 min) Moderate 10/13/2015 Patient Education: Patient Medication Summary Completed 10/13/2015 Appointment: Jazz Bonds WPtel: [address] [place], [place] [id number] [place] (15 min) Moderate 09/18/2015 Visit Plan: Joint Injection - Pt was given post - injection instructions. The pt has been advised to use anti-inflammatories post injection today, ice to the injected site, call if redness, warmth, or increased pain occurs at the site of injection. 08/04/2015 Appointment: Venice Barcenas [facility]Ptel[facility] [phone] [facility] (30 min) Complex 08/04/2015 Patient Education: Patient Medication Summary Completed 08/04/2015 Visit Plan: Parkinson's Disease - pt has diagnosis of Parkinson's disease with movement disorder impinging upon daily activities. The pt is to be on sinemet as directed, and medications to be adjusted as appropriate for alleviation of the impairment of ADL's. Pt or pt's family is to alert this office if symptoms worsen. Pain in shoulder - shoulder/muscle rub - continue with current treatment recommendations as above 05/19/2015 Appointment: Jazz Bonds WPtel: [address] [facility] (15 min) Moderate 05/19/2015 Patient Education: Patient Medication Summary Completed 05/19/2015 Visit Plan: Parkinson's Disease - pt has diagnosis of Parkinson's disease with movement disorder impinging upon daily activities. The pt is to be on sinemet as directed, and medications to be adjusted as appropriate for alleviation of the impairment of ADL's. Pt or pt's family is to alert this office if symptoms worsen. Pt uses her oxygen at night - this has helped her to have better rest at night. Weight gain - pt has gained 8-9 pounds in the past 6 months - she states that her appetite has improved. 01/14/2015 Appointment: Jazz Bonds WPtel: [address] [facility] (15 min) Moderate 01/14/2015 Patient Education: Patient Medication Summary Completed 01/14/2015 Visit Plan: COPD - chronic problem for this patient. We have reviewed chronic treatment strategy, symptom control, and plans for acute exacerbations. No changes today to the current treatment plan as the patient is stable, monitor for acute changes. Parkinson's Disease - pt has diagnosis of Parkinson's disease with movement disorder impinging upon daily activities. The pt is to be on sinemet as directed, and medications to be adjusted as appropriate for alleviation of the impairment of ADL's. Pt or pt's family is to alert this office if symptoms worsen. Weight loss - has improved - no change in treatment. 10/15/2014 Appointment: Jazz Bonds [facility]Ptel[phone] [facility] (15 min) Moderate 10/15/2014 Patient Education: Patient Medication Summary Completed 10/15/2014 Visit Plan: COPD - chronic problem for this patient. We have reviewed chronic treatment strategy, symptom control, and plans for acute exacerbations. No changes today to the current treatment plan as the patient is stable, monitor for acute changes. Lesion of left ear-recommend bactroban ointment twice daily-call if lesion does not heal Shortness of breath-improved with inhaler and night time oxygen-continue to monitor 09/12/2014 Appointment: (15 min) Moderate 09/12/2014 Patient Education: Patient Medication Summary Completed 09/12/2014 Care Plan: COMPLETE CBC AUTOMATED [facility] : [id number] Ordered 08/22/2014 Visit Plan: COPD - chronic problem for this patient. We have reviewed chronic treatment strategy, symptom control, and plans for acute exacerbations. Start Breo 1 inhalation daily-sample provided- monitor for acute changes. Parkinson's Disease - pt has diagnosis of Parkinson's disease with movement disorder impinging upon daily activities. The pt is to be on sinemet as directed, and medications to be adjusted as appropriate for alleviation of the impairment of ADL's. Pt or pt's family is to alert this office if symptoms worsen. Leg cramps-check iron studies 08/20/2014 Visit Plan: COPD - chronic problem for this patient. We have reviewed chronic treatment strategy, symptom control, and plans for acute exacerbations. Start Breo 1 inhalation daily-sample provided- monitor for acute changes. RX for nebulizer as well. Parkinson's Disease - pt has diagnosis of Parkinson's disease with movement disorder impinging upon daily activities. The pt is to be on sinemet as directed, and medications to be adjusted as appropriate for alleviation of the impairment of ADL's. Pt or pt's family is to alert this office if symptoms worsen. Leg cramps-check iron studies ADDENDUM: Plan to do overnight oxygen study due increase in shortness of breath and COPD 08/20/2014 Visit Plan: COPD - chronic problem for this patient. We have reviewed chronic treatment strategy, symptom control, and plans for acute exacerbations. Start Breo 1 inhalation daily-sample provided- monitor for acute changes. Parkinson's Disease - pt has diagnosis of Parkinson's disease with movement disorder impinging upon daily activities. The pt is to be on sinemet as directed, and medications to be adjusted as appropriate for alleviation of the impairment of ADL's. Pt or pt's family is to alert this office if symptoms worsen. Leg cramps-check iron studies ADDENDUM: Plan to do overnight oxygen study due increase in shortness of breath and COPD 08/20/2014 Appointment: (S) New Patient 08/20/2014 Patient Education: Patient Medication Summary Completed 08/20/2014 Instructions Comment hold mirapex take tylenol two pills (1000mg) up to three times a day as needed for restless leg pain . Parkinson's Disease - pt has diagnosis of Parkinson's disease with movement disorder impinging upon daily activities. The pt is to be on sinemet as directed, and medications to be adjusted as appropriate for alleviation of the impairment of ADL's. Pt or pt's family is to alert this office if symptoms worsen. CHF - stable - continue with lasix prn COPD - referral for outpatient pulmonary rehab . Parkinson's Disease - pt has diagnosis of Parkinson's disease with movement disorder impinging upon daily activities. The pt is to be on sinemet as directed, and medications to be adjusted as appropriate for alleviation of the impairment of ADL's. Pt or pt's family is to alert this office if symptoms worsen. . Parkinson's Disease - pt has diagnosis of Parkinson's disease with movement disorder impinging upon daily activities. The pt is to be on sinemet as directed, and medications to be adjusted as appropriate for alleviation of the impairment of ADL's. Pt or pt's family is to alert this office if symptoms worsen. Pt uses her oxygen at night - this has helped her to have better rest at night. Weight gain - pt has gained 8-9 pounds in the past 6 months - she states that her appetite has improved. . CHF - stable - continue with lasix prn-check labs COPD - continue with current treatment - pt going to pulmonary rehab KFK-dfzjqbezbs-pu changes Fax today's note to oxygen supply company . COPD-CHF- hypoxemia-patient wears continuous oxygen at 2L per nasal cannula and continues to notice improvement in symptoms with use of oxygen - less fatigue, less shortness of breath, better rest at night and less anxious about breathing. Patient continues to benefit from therapy -will fax note to [facility]'s oxygen supply company[facility]. TAKE PRILOSEC DAILY X 2 WEEKS (THIS IS YOUR ACID PILL) CHECK LABS TODAY INCLUDING UA . CHF-check BNP-monitor symptoms-follow up with Dr García next week XPL-pwiovdskyo-zb change in medications Reflux-daily prilosec daily x 2 weeks vitamin D3 5000 units daily. stop fish oil start aspirin 81mg four times a week get [employer] from [employer] and home to use on the right shoulder and other sore joints. . Parkinson's Disease - pt has diagnosis of Parkinson's disease with movement disorder impinging upon daily activities. The pt is to be on sinemet as directed, and medications to be adjusted as appropriate for alleviation of the impairment of ADL's. Pt or pt's family is to alert this office if symptoms worsen. Pain in shoulder - shoulder/muscle rub - continue with current treatment recommendations as above . COPD - chronic problem for this patient. We have reviewed chronic treatment strategy, symptom control, and plans for acute exacerbations. No changes today to the current treatment plan as the patient is stable, monitor for acute changes. Parkinson's Disease - pt has diagnosis of Parkinson's disease with movement disorder impinging upon daily activities. The pt is to be on sinemet as directed, and medications to be adjusted as appropriate for alleviation of the impairment of ADL's. Pt or pt's family is to alert this office if symptoms worsen. Weight loss - has improved - no change in treatment. . Hypertension - well controlled - continue with current medications, continue with no added salt diet. Pt has been encouraged to exercise daily. The pt has been advised to call the office if there are any acute concerns about change in blood pressure readings at home. Lymphadenopathy - resolved Weakness, Parkinson's disease - recommended increase in activity - monitor symptoms - patient is to start leg/thigh strengthening. BREO 1 INHALATION DAILY CHECK IRON STUDIES AND VITAMIN D . COPD - chronic problem for this patient. We have reviewed chronic treatment strategy, symptom control, and plans for acute exacerbations. Start Breo 1 inhalation daily-sample provided- monitor for acute changes. Parkinson's Disease - pt has diagnosis of Parkinson's disease with movement disorder impinging upon daily activities. The pt is to be on sinemet as directed, and medications to be adjusted as appropriate for alleviation of the impairment of ADL's. Pt or pt's family is to alert this office if symptoms worsen. Leg cramps-check iron studies BREO 1 INHALATION DAILY CHECK IRON STUDIES AND VITAMIN D . COPD - chronic problem for this patient. We have reviewed chronic treatment strategy, symptom control, and plans for acute exacerbations. Start Breo 1 inhalation daily-sample provided- monitor for acute changes. RX for nebulizer as well. Parkinson's Disease - pt has diagnosis of Parkinson's disease with movement disorder impinging upon daily activities. The pt is to be on sinemet as directed, and medications to be adjusted as appropriate for alleviation of the impairment of ADL's. Pt or pt's family is to alert this office if symptoms worsen. Leg cramps-check iron studies ADDENDUM: Plan to do overnight oxygen study due increase in shortness of breath and COPD BREO 1 INHALATION DAILY CHECK IRON STUDIES AND VITAMIN D . COPD - chronic problem for this patient. We have reviewed chronic treatment strategy, symptom control, and plans for acute exacerbations. Start Breo 1 inhalation daily-sample provided- monitor for acute changes. Parkinson's Disease - pt has diagnosis of Parkinson's disease with movement disorder impinging upon daily activities. The pt is to be on sinemet as directed, and medications to be adjusted as appropriate for alleviation of the impairment of ADL's. Pt or pt's family is to alert this office if symptoms worsen. Leg cramps-check iron studies ADDENDUM: Plan to do overnight oxygen study due increase in shortness of breath and COPD . Hypertension - well controlled - continue with current medications, continue with no added salt diet. Pt has been encouraged to exercise daily. The pt has been advised to call the office if there are any acute concerns about change in blood pressure readings at home. Cardiomyopathy - continue with current treatment, monitor symptoms, call if worsening. EF has decreased to 30%EF. Parkinson's Disease - pt has diagnosis of Parkinson's disease with movement disorder impinging upon daily activities. The pt is to be on sinemet as directed, and medications to be adjusted as appropriate for alleviation of the impairment of ADL's. Pt or pt's family is to alert this office if symptoms worsen. CALL IF LESION OF LEFT EAR DOES NOT HEAL . COPD - chronic problem for this patient. We have reviewed chronic treatment strategy, symptom control, and plans for acute exacerbations. No changes today to the current treatment plan as the patient is stable, monitor for acute changes. Lesion of left ear-recommend bactroban ointment twice daily-call if lesion does not heal Shortness of breath-improved with inhaler and night time oxygen-continue to monitor . Lymphadenopathy - recommended patient to return to clinic in about 2 months - monitor symptoms - call if swelling is acutely worsening. Weakness, Parkinson's disease - recommended increase in activity - monitor symptoms - patient is to start leg/thigh strengthening. . HTN-low in the ER-blood pressure stable-no changes Dehydration-ER follow ub-ouzqnlbc-rlcak labs . Medicare Exam - today we discussed the patients past history, immunizations, preventative exams/evaluations - colonoscopy, fecal occult blood testing, routine labs for renal function, glucose, cholesterol, osteoporosis evaluations, cardiovascular testing and cancer screenings. We have also discussed mental health and the signs/symptoms of depression. The patient was advised of home safety evaluations and the need to make sure that as the aging process continues, we need to be aware of different ways to make the home a safer place to reside. The patient has also been counseled that exercise is necessary - and of utmost importance as we age to help decrease fall risk and to maintain independence in the home. Today we discussed the need for the patient to create paperwork for Advanced directives as well as for the patient to provide this office with a copy of her DOPA paperwork for health care surrogate. take potassium schedule three days per week take lasix as needed take omeprazole daily for the next month if you don't have any symptoms, we can change it to as needed check labs in 1 month . Hypertension - well controlled - continue with current medications, continue with no added salt diet. Pt has been encouraged to exercise daily. The pt has been advised to call the office if there are any acute concerns about change in blood pressure readings at home. Dlszawkenv-vnappc-uc changes GERD-continue prilosec daily take potassium schedule three days per week take lasix as needed take omeprazole daily for the next month if you don't have any symptoms, we can change it to as needed check labs in 1 month . Hypertension - well controlled - continue with current medications, continue with no added salt diet. Pt has been encouraged to exercise daily. The pt has been advised to call the office if there are any acute concerns about change in blood pressure readings at home. Epmjkilosl-feuamk-zq changes GERD-continue prilosec daily take potassium schedule three days per week take lasix as needed take omeprazole daily for the next month if you don't have any symptoms, we can change it to as needed check labs in 1 month . Hypertension - well controlled - continue with current medications, continue with no added salt diet. Pt has been encouraged to exercise daily. The pt has been advised to call the office if there are any acute concerns about change in blood pressure readings at home. Qyuxtzhaiy-fmtkoa-dp changes GERD-continue prilosec daily . Hospital follow up - This was a follow up appointment from the patient's hospitalization during which time Dr. Bonds formulated the assessment and plan for the follow up on this patient's medical condition. CHF - congestive heart failure - Pt has Chronic congestive heart failure - and is currently fairly well maintained on the current medications. Today there is no change in the treatment course. If symptoms worsen, increase edema or more that 2-3 pound weight gain over a week without improvement in the symptoms with a decrease in the sodium of the diet, then the pt is to have the office alerted. COPD - chronic problem for this patient. We have reviewed chronic treatment strategy, symptom control, and plans for acute exacerbations. No changes today to the current treatment plan as the patient is stable, monitor for acute changes. . Parkinson's Disease - pt has diagnosis of Parkinson's disease with movement disorder impinging upon daily activities. The pt is to be on sinemet as directed, and medications to be adjusted as appropriate for alleviation of the impairment of ADL's. Pt or pt's family is to alert this office if symptoms worsen. Chronic Depression and anxiety - the pt has symptoms of chronic anxiety and depression that have been fairly well controlled since the last office visit. The pt has expected periods of exacerbation with abatement of the symptoms with change in situational exposure. No change in current medications. . Joint Injection - Pt was given post - injection instructions. The pt has been advised to use anti-inflammatories post injection today, ice to the injected site, call if redness, warmth, or increased pain occurs at the site of injection. . Hypertension - well controlled - continue with current medications, continue with no added salt diet. Pt has been encouraged to exercise daily. The pt has been advised to call the office if there are any acute concerns about change in blood pressure readings at home. CHF - chronic - with intermittent symptoms - currently stable- use of lasix is PRN only. Pt is not needing to use compression socks at this time. Parkinson's disease - symptoms stable - I have recommended no changes to her current regimen. Depression - chronic - refilled sertraline 50mg daily. Flu shot today in clinic hold mirapex take tylenol two pills (1000mg) up to three times a day as needed for restless leg pain . Parkinson's Disease - pt has diagnosis of Parkinson's disease with movement disorder impinging upon daily activities. The pt is to be on sinemet as directed, and medications to be adjusted as appropriate for alleviation of the impairment of ADL's. Pt or pt's family is to alert this office if symptoms worsen. CHF - stable - continue with lasix prn COPD - continue with current treatment - pt to go to pulmonary rehab
--- NOTE | 2017-09-13 17:55 | ED Lower Extremity ---
General Stated Complaint: FALL;R HIP PAIN Source: patient, EMS Exam Limitations: no limitations History of Present Illness Date Seen by Provider: Sep 13, 2017 Time Seen by Provider: 17:53 Initial Comments To ER per EMS from home with reports of a fall. She lives at home by herself. She has Parkinson's and falls fairly frequent. She has right hip pain that prohibited her from getting up. She laid on the floor for about 30 minutes. She did hit her head but denies loss consciousness. She received 100 g of fentanyl in route Onset: just prior to arrival Severity: moderate Pain/Injury Location: right hip Method of Injury: fell Modifying Factors: Worse With Movement Allergies and Home Medications Allergies Coded Allergies: Penicillins (Verified Allergy, Mild, 08/05/13) Home Medications Alprazolam 0.25 Mg Tablet, 0.5 TAB PO BID, (Reported) Alprazolam 0.25 Mg Tablet, 0.5-1 TAB PO BID PRN for ANXIETY, (Reported) Aspirin 81 Mg Tablet.dr, 81 MG PO We, (Reported) TAKES AT NOON Calcium Carbonate/Vitamin D3 1 Each Tablet, 1 TAB PO DAILY, (Reported) Carbidopa/Levodopa 1 Each Tablet, 2 TAB PO BID, (Reported) Carbidopa/Levodopa 1 Each Tablet, 3 TAB PO 1200, (Reported) Cholecalciferol (Vitamin D3) 400 Unit Tablet, 400 UNIT PO DAILY, (Reported) Furosemide 20 Mg Tablet, 20 MG PO UD PRN for WEIGHT GAIN >2.5-3 POUNDS, ( Reported) TAKE THREE TIMES A WEEK NEEDED FOR WEIGHT GAIN GREATER THAN 2.5-3 POUNDS Lisinopril 5 Mg Tablet, 5 MG PO 1200, (Reported) Metoprolol Tartrate 25 Mg Tablet, 12.5 MG PO BID, (Reported) TAKES 1/2 (25MG) TABLET Multivitamin 1 Each Tablet, 1 TAB PO DAILY, (Reported) Nitroglycerin 0.4 Mg Tab.subl, 0.4 MG SL UD PRN for CHEST PAIN, (Reported) [place]-3 Fatty Acids 1,000 Mg Capsule, 1,000 MG PO DAILY, (Reported) Omeprazole 20 Mg Capsule.dr, 20 MG PO BID, (Reported) Potassium Chloride 20 Meq Tab.er.prt, 20 MEQ PO DAILY PRN for WHEN TAKING FUROSEMIDE, (Reported) Pramipexole Di-HCl 0.25 Mg Tablet, 0.5 TAB PO BID PRN for RESTLESS LEGS, ( Reported) Rasagiline Mesylate 1 Mg Tablet, 1 MG PO DAILY, (Reported) Sertraline HCl 50 Mg Tablet, 50 MG PO HS, (Reported) Spironolactone 25 Mg Tablet, 25 MG PO DAILY, (Reported) Vitamin B Complex & Vit C No.4 150 Mg Tablet, 150 MG PO DAILY, (Reported) Patient Home Medication List Home Medication List Reviewed: Yes Constitutional: see HPI EENTM: see HPI Respiratory: no symptoms reported Cardiovascular: no symptoms reported Genitourinary: no symptoms reported Musculoskeletal: see HPI, joint pain Skin: no symptoms reported Psychiatric/Neurological: No Symptoms Reported Past Pmgurjg-Qdahji-Ocwowr Hx Patient Social History 2nd Hand Smoke Exposure: No Recent Hopitalizations: No Immunizations Up To Date Tetanus Booster (TDap): Unknown PED Vaccines UTD: No Date of Influenza Vaccine: Feb 07, 2017 Seasonal Allergies Seasonal Allergies: No Past Medical History Surgeries: Yes Abdominal, Appendectomy, Breast, Gallbladder, Hysterectomy, Oophorectomy Respiratory: No COPD Currently Using CPAP: No Currently Using BIPAP: No Cardiac: Yes High Cholesterol, Hypertension Neurological: Yes Parkinson's Disease Reproductive Disorders: No Female Reproductive Disorders: Denies Sexually Transmitted Disease: No HIV/AIDS: No Genitourinary: Yes (URGENCY) Gastrointestinal: Yes Gastroesophageal Reflux Musculoskeletal: Yes (CHRONIC NECK AND SHOULDER PAIN) Chronic Back Pain Endocrine: No Cataract Cancer: Yes Breast, Colon Psychosocial: No Integumentary: No Blood Disorders: No Adverse Reaction/Blood Tranf: No Family Medical History Cancer 19 FATHER (BLADDER) 19 MOTHER (LIVER ) Myocardial infarction 19 MOTHER Parkinson's disease 19 FATHER Cancer Physical Exam Vital Signs Vital Signs - First Documented 09/13/17 17:45 Temp 97.1 Pulse 88 Resp 18 B/P (MAP) 127/92 (104) Pulse Ox 100 O2 Delivery Nasal Cannula O2 Flow Rate 2.00 Capillary Refill : General Appearance: WD/WN, no apparent distress HEENT: PERRL/EOMI, normal ENT inspection Neck: non-tender, full range of motion Respiratory: no respiratory distress, no accessory muscle use Gastrointestinal: normal bowel sounds, non tender Hips: right hip limited range of motion, right hip pain, right hip other (pain with passive ROM right hip. Distally, she has weak DP pulses bilaterally but normal sensation in his toes) Knees: bilateral knee non-tender, bilateral knee normal inspection, bilateral knee normal range of motion Ankles: bilateral ankle non-tender, bilateral ankle normal inspection, bilateral ankle normal range of motion Neurologic/Psychiatric: alert, normal mood/affect, oriented x 3 Skin: normal color, warm/dry Progress/Results/Core Measures Results/Orders Lab Results Laboratory Tests Test 09/13/17 17:45 09/13/17 18:03 Range/Units White Blood Count 5.2 4.3-11.0 10^3/uL Red Blood Count 4.45 4.35-5.85 10^6/uL Hemoglobin 12.3 11.5-16.0 G/DL Hematocrit 40 35-52 % Mean Corpuscular Volume 89 80-99 FL Mean Corpuscular Hemoglobin 28 25-34 PG Mean Corpuscular Hemoglobin Concent 31 L 32-36 G/DL Red Cell Distribution Width 15.4 H 10.0-14.5 % Platelet Count 123 L 130-400 10^3/uL Mean Platelet Volume 10.2 7.4-10.4 FL Neutrophils (%) (Auto) 65 42-75 % Lymphocytes (%) (Auto) 21 12-44 % Monocytes (%) (Auto) 12 0-12 % Eosinophils (%) (Auto) 2 0-10 % Basophils (%) (Auto) 0 0-10 % Neutrophils # (Auto) 3.4 1.8-7.8 X 10^3 Lymphocytes # (Auto) 1.1 1.0-4.0 X 10^3 Monocytes # (Auto) 0.6 0.0-1.0 X 10^3 Eosinophils # (Auto) 0.1 0.0-0.3 10^3/uL Basophils # (Auto) 0.0 0.0-0.1 10^3/uL Prothrombin Time 14.3 12.2-14.7 SEC INR Comment 1.1 0.8-1.4 Activated Partial Thromboplast Time 27 24-35 SEC Sodium Level 142 135-145 MMOL/L Potassium Level 4.3 3.6-5.0 MMOL/L Chloride Level 105 98-107 MMOL/L Carbon Dioxide Level 27 21-32 MMOL/L Anion Gap 10 5-14 MMOL/L Blood Urea Nitrogen 24 H 7-18 MG/DL Creatinine 0.93 0.60-1.30 MG/DL Estimat Glomerular Filtration Rate 58 BUN/Creatinine Ratio 26 Glucose Level 104 70-105 MG/DL Calcium Level 9.4 8.5-10.1 MG/DL Total Bilirubin 0.6 0.1-1.0 MG/DL Aspartate Amino Transf (AST/SGOT) 30 5-34 U/L Alanine Aminotransferase (ALT/SGPT) 10 0-55 U/L Alkaline Phosphatase 59 40-136 U/L Total Protein 5.9 L 6.4-8.2 GM/DL Albumin 3.7 3.2-4.5 GM/DL Urine Color YELLOW Urine Clarity CLEAR Urine pH 6 5-9 Urine Specific Mercer 1.025 H 1.016-1.022 Urine Protein 1+ H NEGATIVE Urine Glucose (UA) NEGATIVE NEGATIVE Urine Ketones 1+ H NEGATIVE Urine Nitrite NEGATIVE NEGATIVE Urine Bilirubin NEGATIVE NEGATIVE Urine Urobilinogen 1 NORMAL MG/DL Urine Leukocyte Esterase NEGATIVE NEGATIVE Urine RBC (Auto) 1+ H NEGATIVE Urine RBC NONE /HPF Urine WBC NONE /HPF Urine Crystals NONE /LPF Urine Bacteria NEGATIVE /HPF Urine Casts PRESENT /LPF Urine Hyaline Casts RARE /LPF Urine Mucus SMALL H /LPF Urine Culture Indicated NO My Orders Orders - 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 Cbc With Automated Diff (09/13/17 17:50) Comprehensive Metabolic Panel (09/13/17 17:50) Protime With Inr (09/13/17 17:50) Ua Culture If Indicated (09/13/17 17:50) Iv Heplock-Insert (Order) (09/13/17 17:50) Partial Thromboplastin Time (09/13/17 17:50) Chest 1 View, Ap/Pa Only (09/13/17 17:50) Ct Head/Cervical Spine Wo (09/13/17 17:50) Pelvis With Right Hip 2-3views (09/13/17 17:50) Morphine Injection (Morphine Injection (09/13/17 18:00) Woody Cath (09/13/17 17:56) Ct Pelvis Wo (09/13/17 18:59) Medications Given in ED Current Medications Medications Dose Ordered Sig/Shayne Route Start Time Stop Time Status Last Admin Dose Admin Morphine Sulfate 4 mg ONCE ONCE IVP 09/13/17 18:00 09/13/17 18:06 DC 09/13/17 18:30 4 MG Vital Signs/I&O 7/3/18 17:45 Temp 97.1 Pulse 88 Resp 18 B/P (MAP) 127/92 (104) Pulse Ox 100 O2 Delivery Nasal Cannula O2 Flow Rate 2.00 Diagnostic Imaging Diagonstic Imaging: Xray Plain Films/CT/US/NM/MRI: chest Comments NAME: CAROLA YARBROUGH [facility] REC#: [id number] PT STATUS: REG ER : 1935 PHYSICIAN: CALVIN CAZARES APRN ADMIT DATE: 09/13/17/ER Signed Date of Exam:09/13/17 CHEST 1 VIEW, AP/PA ONLY INDICATION: Trauma, fall. COMPARISON: 09/09/2016. FINDINGS: Chronic linear opacities in the upper lobes are present and features of subpleural fibrosis. Cardiomegaly is unchanged. Moderate-sized hiatus hernia. No pleural effusion or pneumothorax. No displaced rib fractures. Bilateral axillary lymph node dissection has been performed. IMPRESSION: 1. No acute cardiopulmonary process by portable radiography. 2. Stable hiatal hernia. Dictated by: Dictated on workstation # [id number] Dict: 09/13/171850 Trans: 09/13/17 185 TS [id number] Interpreted by: GRACE CASTILLO MD Electronically signed by: GRACE CASTILLO MD 09/13/171853 NAME: CAROLA YARBROUGH [facility] REC#: [id number] PT STATUS: REG ER : 1935 PHYSICIAN: CALVIN CAZARES APRN ADMIT DATE: 09/13/17/ER Signed Date of Exam:09/13/17 CT HEAD/CERVICAL SPINE WO PROCEDURE: CT head and CT cervical spine without contrast. TECHNIQUE: Multiple contiguous axial images were obtained through the brain and cervical spine without the use of intravenous contrast. Sagittal and coronal reformations through the cervical spine were then performed. INDICATION: Fall with posterior head and neck pain. COMPARISON: CT head from 09/09/2016. FINDINGS: CT HEAD: No hyperdense hemorrhage or space-occupying mass. No hydrocephalus or midline shift. Basilar cisterns are patent. Global atrophy is age appropriate. Periventricular white matter hypoattenuation is compatible with chronic microvascular ischemic disease. No acute skull fracture. CT CERVICAL SPINE: No acute fracture or traumatic malalignment. No high-grade spinal canal narrowing. Multilevel degenerative disc osteophyte complex does not result in significant spinal stenosis. Scattered areas of mild neuroforaminal narrowing due to uncovertebral joint and facet hypertrophy. Biapical subpleural scarring is present. Heterogeneous thyroid without discrete nodule. No cervical lymphadenopathy. IMPRESSION: 1. No acute intracranial hemorrhage or skull fracture. 2. No acute fracture or traumatic malalignment in the cervical spine. Dictated by: Dictated on workstation # [id number] Dict: 09/13/17 184 Trans: 09/13/171853 B Interpreted by: GRACE CASTILLO MD Electronically signed by: GRACE CASTILLO MD 09/13/171853 NAME: CAROLA YARBROUGH [facility] REC#: [id number] PT STATUS: REG ER : 1935 PHYSICIAN: CALVIN CAZARES APRN ADMIT DATE: 09/13/17/ER Draft Date of Exam:09/13/17 PELVIS WITH RIGHT HIP 2-3VIEWS EXAMINATION: Pelvis and right hip at 7 o'clock INDICATION: Injury Single AP view of the pelvis and AP and lateral views of the right hip were obtained. There is interruption of the iliopectineal line on the right. This would be consistent with a slightly displaced fracture. There is also deformity of the pubic symphysis. This finding has developed since the previous PET/CT exam of 06/05/09. I suspect this injury is chronic in nature, however. No other fracture or acute bony abnormality is appreciated. The soft tissues are unremarkable. IMPRESSION: 1. There is a slightly displaced fracture of the junction of the superior pubic ramus and acetabulum on the right. If further evaluation of the extent of the injury to the right acetabulum is desired, then CT would be recommended. 2. There is no acute bony abnormality noted otherwise. There is deformity of the pubic symphysis. This is most likely a sequela of prior trauma. 3. These results were discussed with Calvin Cazares APRN. Dictated on workstation # [id number] Dict: 09/13/171850 Trans: 09/13/17 1902 [facility] Interpreted by: MONICA HA MD Electronically signed by: Departure Communication (Admissions) Time/Spoke to Admitting Phy: 19:[address] Bolaños. We'll admit for pain control, physical therapy consult. Orthopedics Dr. Zavaleta will consult in the morning. I've spoken with him already. Impression Primary Impression: Closed right hip fracture Disposition: ADMITTED INPATIENT Condition: Stable Admissions Decision to Admit Reason: Admit from ER (General) Decision to Admit/Date: Sep 13, 2017 Time/Decision to Admit Time: 17:55 Departure-Patient Inst. Referrals: NICOLE BOLAÑOS MD (PCP/Family) Primary Care Physician CALVIN CAZARES APRN Sep 13, 2017 17:55
[2017-09-13] MEDS ORDERED: morphine INJ 10 MG/ML 1ML (SYR OR VIAL) IVP ONE (18:00)
[2017-09-13 18:09] LABS: BILIRUBIN,URINE NEGATIVE (NEGATIVE); CLARITY,URINE CLEAR; COLOR,URINE YELLOW; GLUCOSE, URINE (UA) NEGATIVE (NEGATIVE); KETONES,URINE 1+ (NEGATIVE); LEUKOCYTE ESTERASE ,URINE NEGATIVE (NEGATIVE); NITRITE,URINE NEGATIVE (NEGATIVE); PH,URINE 6 (5-9); PROTEIN,URINE 1+ (NEGATIVE); UROBILINOGEN,URINE 1 MG/DL (NORMAL)
[2017-09-13 18:12] LABS: BASOPHILS % (AUTO) 0 % (0-10); EOSINOPHILS # (AUTO) 0.1 10^3/uL (0.0-0.3); EOSINOPHILS % (AUTO) 2 % (0-10); HEMATOCRIT 40 % (35-52); HEMOGLOBIN 12.3 G/DL (11.5-16.0); LYMPHOCYTES # (AUTO) 1.1 X 10^3 (1.0-4.0); LYMPHOCYTES % (AUTO) 21 % (12-44); MEAN CORPUSCULAR HEMOGLOBIN 28 PG (25-34); MEAN CORPUSCULAR HGB CONC 31 G/DL (32-36); MEAN CORPUSCULAR VOLUME 89 FL (80-99); MEAN PLATELET VOLUME 10.2 FL (7.4-10.4); MONOCYTES # (AUTO) 0.6 X 10^3 (0.0-1.0); MONOCYTES % (AUTO) 12 % (0-12); NEUTROPHILS # (AUTO) 3.4 X 10^3 (1.8-7.8); NEUTROPHILS % (AUTO) 65 % (42-75); PLATELET COUNT 123 10^3/uL (130-400); RED BLOOD COUNT 4.45 10^6/uL (4.35-5.85); RED CELL DISTRIBUTION WIDTH 15.4 % (10.0-14.5); WHITE BLOOD COUNT 5.2 10^3/uL (4.3-11.0)
[2017-09-13 18:19] LABS: BACTERIA,URINE NEGATIVE /HPF; HYALINE CASTS, URINE RARE /LPF
[2017-09-13 18:22] LABS: INR 1.1 (0.8-1.4); PROTHROMBIN TIME PATIENT 14.3 SEC (12.2-14.7)
[2017-09-13 18:29] LABS: ALBUMIN 3.7 GM/DL (3.2-4.5); BILIRUBIN,TOTAL 0.6 MG/DL (0.1-1.0); CALCIUM 9.4 MG/DL (8.5-10.1); CREATININE SERUM 0.93 MG/DL (0.60-1.30); POTASSIUM 4.3 MMOL/L (3.6-5.0); TOTAL PROTEIN 5.9 GM/DL (6.4-8.2)
--- NOTE | 2017-09-13 18:48 | Diagnostic Imaging Report ---
PROCEDURE: CT head and CT cervical spine without contrast. TECHNIQUE: Multiple contiguous axial images were obtained through the brain and cervical spine without the use of intravenous contrast. Sagittal and coronal reformations through the cervical spine were then performed. INDICATION: Fall with posterior head and neck pain. COMPARISON: CT head from 09/09/2016. FINDINGS: CT HEAD: No hyperdense hemorrhage or space-occupying mass. No hydrocephalus or midline shift. Basilar cisterns are patent. Global atrophy is age appropriate. Periventricular white matter hypoattenuation is compatible with chronic microvascular ischemic disease. No acute skull fracture. CT CERVICAL SPINE: No acute fracture or traumatic malalignment. No high-grade spinal canal narrowing. Multilevel degenerative disc osteophyte complex does not result in significant spinal stenosis. Scattered areas of mild neuroforaminal narrowing due to uncovertebral joint and facet hypertrophy. Biapical subpleural scarring is present. Heterogeneous thyroid without discrete nodule. No cervical lymphadenopathy. IMPRESSION: 1. No acute intracranial hemorrhage or skull fracture. 2. No acute fracture or traumatic malalignment in the cervical spine. Dictated by: Dictated on workstation # [id number]
--- NOTE | 2017-09-13 18:54 | Diagnostic Imaging Report ---
INDICATION: Trauma, fall. COMPARISON: 09/09/2016. FINDINGS: Chronic linear opacities in the upper lobes are present and features of subpleural fibrosis. Cardiomegaly is unchanged. Moderate-sized hiatus hernia. No pleural effusion or pneumothorax. No displaced rib fractures. Bilateral axillary lymph node dissection has been performed. IMPRESSION: 1. No acute cardiopulmonary process by portable radiography. 2. Stable hiatal hernia. Dictated by: Dictated on workstation # [id number]
--- NOTE | 2017-09-13 19:03 | Diagnostic Imaging Report ---
EXAMINATION: Pelvis and right hip at 7 o'clock INDICATION: Injury Single AP view of the pelvis and AP and lateral views of the right hip were obtained. There is interruption of the iliopectineal line on the right. This would be consistent with a slightly displaced fracture. There is also deformity of the pubic symphysis. This finding has developed since the previous PET/CT exam of 06/05/09. I suspect this injury is chronic in nature, however. No other fracture or acute bony abnormality is appreciated. The soft tissues are unremarkable. IMPRESSION: 1. There is a slightly displaced fracture of the junction of the superior pubic ramus and acetabulum on the right. If further evaluation of the extent of the injury to the right acetabulum is desired, then CT would be recommended. 2. There is no acute bony abnormality noted otherwise. There is deformity of the pubic symphysis. This is most likely a sequela of prior trauma. 3. These results were discussed with Clayton Cazares APRN. Dictated by: Dictated on workstation # [id number]
--- NOTE | 2017-09-13 19:39 | Diagnostic Imaging Report ---
PROCEDURE: CT pelvis without contrast. TECHNIQUE: Multiple contiguous axial images were obtained through the pelvis without the use of intravenous contrast. Sagittal and coronal reformations were performed. INDICATION: Right hip pain The plain film examination of the pelvis performed earlier today noted a slightly displaced fracture involving the junction of the right acetabulum and the superior pubic ramus on the right. That fracture is again evident. The fracture interrupts the iliopectineal cortex but does not appear to significantly involve the acetabulum itself. There is also a nondisplaced buckle fracture involving the sacral promontory on the right near the sacroiliac joint (axial image 35 of 130). The plain film exam also noted deformity of the pubic symphysis. There do appear to be long-standing nondisplaced fractures of the pubic symphysis. There is also a healed displaced fracture of the midportion of the inferior pubic ramus on the right. There is no fracture or acute bony abnormality noted otherwise. There is no pelvic mass or free fluid collection noted. The bladder is decompressed by a Woody catheter. There does appear to have been a prior surgical procedure involving the rectosigmoid portion of the colon. IMPRESSION: 1. There is a slightly displaced fracture involving the anterior cortex of the junction of the right acetabulum and superior pubic ramus. There does not appear to be any significant involvement of the acetabulum itself. There is also a nondisplaced buckle fracture of the sacral promontory on the right near the sacroiliac joint. 2. There is no acute bony abnormality noted otherwise. 3. There are long-standing fractures of the pubic symphysis and the inferior pubic ramus on the right. 4. These results were discussed with Clayton Cazares APRN. Dictated by: Dictated on workstation # [id number]
--- OUTSIDE RECORDS SUMMARY | 2017-09-13 19:40 | XMS REPORT | Encounter Summary ---
Author Author [facility] Organization [facility] Address Unknown Phone Unavailable Care Team Providers Care Take Out Waiter Name Role Phone Suzanne Mcadams MD Unavailable Tiago RodriguesW Unavailable Rah Cruz MD Unavailable Jazz Bonds MD PCP Reason for Referral * Consult, Test & Treat Status Reason Specialty Diagnoses / Referred By Referred To Procedures Contact Contact Closed Specialty Diagnoses Rah Cruz, Services Primary MD Required Parkinsonism [address] [place] [address] Reason for Visit * Reason Comments Parkinsonism w/ daughter Encounter Details Date Type Department Care Team Description 09/05/2017 Office Visit [facility] Rah Cruz MD Primary Parkinsonism Physicians-Neurology [address] (Primary Dx); [facility] [address] Cognitive changes; [address] [place] [address] Other depression; [place], [place] [phone] RLS (restless legs [id number] syndrome); [phone] Other insomnia Social History Tobacco Use Types [...] patients can have urinary retention. Please call [phone] if you have any questions or side effects. Please contact me through your smart phone with [employer] or go on line at [employer] You will need to register. in this [...] public places?: Always Had difficulty dressing?: Occasionally [place] depressed?: Never Had problems with your close personal relationships?: Occasionally Had problems with your concentration, for example, when reading or watching TV? : Occasionally [place] unable to communicate effectively?: Occasionally Had painful muscle cramps or spasms?: Often [place] embarrassed in public due to having Parkinson's [...]
--- OUTSIDE RECORDS SUMMARY | 2017-09-13 19:40 | XMS REPORT | Encounter Summary ---
Author Author [facility] Organization [facility] Address Unknown Phone Unavailable Care Team Providers Care Ingot Passer Name Role Phone Suzanne Mcadams MD Unavailable Tiago RodriguesW Unavailable Rah Cruz MD Unavailable Jazz Bonds MD PCP Reason for Visit * Reason Comments Medication Refill Encounter Details Date Type Department Care Team Description 07/13/2017 Refill [facility] Rah Cruz MD Physicians-Neurology [address] [facility] [address] [place] [address] [place], [place] [phone] [id number] [phone] Social History Tobacco Use Types Packs/Day Years [...] 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 Telephone order received by Dr. Rah Cruz MD carbidopa/levodopa (SINEMET) 25/100 mg tablet Si tab, 3 tabs, 2 tabs. #630 x 3 refills in this encounter Plan of Treatment Not on fileas of this encounter Visit Diagnoses Not on filein this encounter
--- OUTSIDE RECORDS SUMMARY | 2017-09-13 19:40 | XMS REPORT | Clinical Summary ---
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 If you do not see the information that you expected, contact Release of Information in the Health Information Management department at [phone] for further assistance in locating additional records.[facility] Allergies Active Allergy Reactions Severity Noted [...]
[2017-09-13 20:00] VITALS: BP 121/71
[2017-09-13] MEDS ORDERED: morphine INJ 4 MG/ML 1 ML (VIAL/SYRINGE) IVP PRN (20:15)
[2017-09-13] MEDS ORDERED: ONDANSETRON 4 MG/2 ML (SDV) Z0FRAN IVP PRN (20:15)
[2017-09-13] MEDS: DOCUSATE SODIUM 100 MG (COLACE) CAP PO SCH (22:17)
[2017-09-14 00:12] VITALS: BP 106/67
[2017-09-14 03:49] VITALS: BP 104/65
[2017-09-14] MEDS: HYDROcodone/APAP 5 MG/325 MG (LORTAB) TAB PO PRN ×3 (06:47→18:58)
--- NOTE | 2017-09-14 07:37 | Consultation ---
History of Present Illness History of Present Illness Patient Consulted On(davin/time) 09/14/17 07:31 Date Seen by Provider: Sep 14, 2017 Time Seen by Provider: 07:31 Reason for Visit: Right hip pain History of Present Illness Patient is a very pleasant 82 y/o white female who experienced a fall yesterday. Patient states that she was doing laundry, and reached above the dryer for a shirt. She fell backwards at that time. She complains of pain in the right buttocks. She was brought to [facility], where multiple radiologic studies were performed. CT of the pelvis reveals a superior pubic rami fracture at the acetabular junction, Right lateral sacral prominence buckle fracture, and an old well healed right inferior pubic ramus fracture. Patient is evaluated on the surgical floor. Allergies and Home Medications Allergies Coded Allergies: Penicillins (Verified Allergy, Mild, 08/05/13) Home Medications Alprazolam 0.25 Mg Tablet, 0.5 TAB PO BID, (Reported) Alprazolam 0.25 Mg Tablet, 0.5-1 TAB PO BID PRN for ANXIETY, (Reported) Aspirin 81 Mg Tablet.dr, 81 MG PO We, (Reported) TAKES AT NOON Calcium Carbonate/Vitamin D3 1 Each Tablet, 1 TAB PO DAILY, (Reported) Carbidopa/Levodopa 1 Each Tablet, 2 TAB PO BID, (Reported) Carbidopa/Levodopa 1 Each Tablet, 3 TAB PO 1200, (Reported) Cholecalciferol (Vitamin D3) 400 Unit Tablet, 400 UNIT PO DAILY, (Reported) Furosemide 20 Mg Tablet, 20 MG PO UD PRN for WEIGHT GAIN >2.5-3 POUNDS, ( Reported) TAKE THREE TIMES A WEEK NEEDED FOR WEIGHT GAIN GREATER THAN 2.5-3 POUNDS Metoprolol Tartrate 25 Mg Tablet, 12.5 MG PO BID, (Reported) TAKES 1/2 (25MG) TABLET Multivitamin 1 Each Tablet, 1 TAB PO DAILY, (Reported) Nitroglycerin 0.4 Mg Tab.subl, 0.4 MG SL UD PRN for CHEST PAIN, (Reported) Suches-3 Fatty Acids 1,000 Mg Capsule, 1,000 MG PO DAILY, (Reported) Omeprazole 20 Mg Capsule.dr, 20 MG PO BID, (Reported) Potassium Chloride 20 Meq Tab.er.prt, 20 MEQ PO DAILY PRN for WHEN TAKING FUROSEMIDE, (Reported) Pramipexole Di-HCl 0.25 Mg Tablet, 0.5 TAB PO BID PRN for RESTLESS LEGS, ( Reported) Rasagiline Mesylate 1 Mg Tablet, 1 MG PO DAILY, (Reported) Sertraline HCl 50 Mg Tablet, 50 MG PO HS, (Reported) Spironolactone 25 Mg Tablet, 25 MG PO DAILY, (Reported) Vitamin B Complex & Vit C No.4 150 Mg Tablet, 150 MG PO DAILY, (Reported) Patient Home Medication List Home Medication List Reviewed: No Past Vyqjdaw-Yyovto-Dxqrxa Hx Patient Social History Alcohol Use: Denies Use Recreational Drug Use: No Smoking Status: Never a Smoker 2nd Hand Smoke Exposure: No Recent Foreign Travel: No Contact w/Someone Who Travel: No Recent Infectious Disease Expo: No Recent Hopitalizations: No Physical Abuse: No Sexual Abuse: No Immunizations Up To Date Tetanus Booster (TDap): Unknown PED Vaccines UTD: No Date of Influenza Vaccine: Feb 07, 2017 Seasonal Allergies Seasonal Allergies: No Past Medical History Surgeries: Yes Abdominal, Appendectomy, Breast, Gallbladder, Hysterectomy, Oophorectomy Respiratory: No COPD Currently Using CPAP: No Currently Using BIPAP: No Cardiac: Yes High Cholesterol, Hypertension Neurological: Yes Parkinson's Disease Reproductive Disorders: No Female Reproductive Disorders: Denies Sexually Transmitted Disease: No HIV/AIDS: No Genitourinary: Yes (URGENCY) Gastrointestinal: Yes Gastroesophageal Reflux Musculoskeletal: Yes (CHRONIC NECK AND SHOULDER PAIN) Chronic Back Pain Endocrine: No HEENT: Yes Cataract Cancer: Yes Breast, Colon Psychosocial: No Nursing Suicide Risk Score: 0 Integumentary: No Blood Disorders: No Adverse Reaction/Blood Tranf: No Family Medical History Cancer 19 FATHER (BLADDER) 19 MOTHER (LIVER ) Myocardial infarction 19 MOTHER Parkinson's disease 19 FATHER Cancer Review of Systems-General Constitutional: No chills, No fever EENTM: No blurred vision Respiratory: No cough, No dyspnea on exertion Gastrointestinal: No no symptoms reported Genitourinary: No no symptoms reported Musculoskeletal: other (pelvic pain) Skin: other (RUE skin tear) Psychiatric/Neurological: Other (parkinson's) Physical Exam-General Problems Physical Exam Vital Signs Vital Signs - First Documented 09/13/17 17:45 Temp 97.1 Pulse 88 Resp 18 B/P (MAP) 127/92 (104) Pulse Ox 100 O2 Delivery Nasal Cannula O2 Flow Rate 2.00 Capillary Refill : Less Than 3 SecondsLess Than 3 Seconds General Appearance: WD/WN, no apparent distress Respiratory: no respiratory distress, no accessory muscle use Gastrointestinal: soft Extremities: normal range of motion, normal inspection, no pedal edema, no calf tenderness, pelvis stable, other (Pain with palpation over right sacral region. Pain with flexion of the right thigh. Dorsiflexion and plantar flexion intact, NVI) Neurologic/Psychiatric: vaccines solutions specialist II-XII nml as tested, no motor/sensory deficits, alert, normal mood/affect, oriented x 3 Skin: other ( skin tear on medial portion of right upper arm) Assessment/Plan Assessment/Plan Admission Diagnosis/Plan Right superior rami fracture right sided sacral buckle fracture S/P Fall Parkinson's Patient's fractures are mechanically stable. She will be able to weight bear as tolerated. I explained that ambulation, with such fractures, is safe but does produce significant pain. It is critical that the patient makes every active to remain mobile, in order to reduce her risks of comorbid conditions associated with chronic immobility. Patient will follow up with Dr. Zavaleta in 2-3 weeks, on an outpatient basis Please contact our service if we are need prior to scheduled follow up . Admission Status: Inpatient Order (span 2 midnights) Clinical Quality Measures DVT/VTE Risk/Contraindication: Risk Factor Score Per Nursin RFS Level Per Nursing on Admit: 4+=Very High ELIZA PADILLA Sep 14, 2017 07:37
[2017-09-14 08:00] VITALS: BP 109/61
[2017-09-14] MEDS: DOCUSATE SODIUM 100 MG (COLACE) CAP PO SCH ×2 (10:44→20:08)
--- NOTE | 2017-09-14 11:01 | Progress Note-Hospitalist ---
Subjective HPI/CC On Admission Date Seen by Provider: Sep 14, 2017 Time Seen by Provider: 11:00 Objective Exam Vital Signs Vital Signs Date Time Temp Pulse Resp B/P (MAP) Pulse Ox O2 Delivery O2 Flow Rate FiO2 09/14/17 08:00 98.2 92 16 109/61 (77) 97 Nasal Cannula 2.00 Capillary Refill : Less Than 3 SecondsLess Than 3 Seconds Results/Procedures Lab Laboratory Tests 09/13/17 17:45 Patient resulted labs reviewed. Clinical Quality Measures DVT/VTE Risk/Contraindication: Risk Factor Score Per Nursin RFS Level Per Nursing on Admit: 4+=Very High JEWEL REVELES DO Sep 14, 2017 11:01
--- NOTE | 2017-09-14 11:10 | Physical Therapy Evaluation ---
PT Evaluation-General Medical Diagnosis Admission Date Sep 13, 2017 at 19:36 Medical Diagnosis: R superior pubic ramus fracture Onset Date: Sep 13, 2017 Therapy Diagnosis Therapy Diagnosis: decreased mobility, weakness Height/Weight Height (Feet): 5 Height (Inches): 9.00 Weight (Pounds): 130 Weight (Ounces): 8.0 Precautions Precautions/Isolations: Fall Prevention, Standard Precautions Weight Bear Status Right Lower Extremity: Right Weight Bearing/Tolerated Left Lower Extremity: Left Weight Bearing/Tolerated as tolerated with a walker Referral Physician: Dr. Bonds Reason for Referral: Evaluation/Treatment, Strengthening Medical History Pertinent Medical History: GERD, HTN, Parkinson's Additional Medical History chronic back pain, breast and colon CA Current History Fall at home 09/13/17, c/o R hip pain. Reviewed History: Yes Social History Home: Single Level Current Living Status: Spouse Prior/Core FIM Prior Level of Function Functional [place] Measure 0=Not Assessed/NA 4=Minimal Assistance 1=Total Assistance 5=Supervision or Setup 2=Maximal Assistance 6=Modified [place] 3=Moderate Assistance 7=Complete [place] Bed Mobility: 6 Transfers (B,C,W/C) (FIM): 6 Gait: 6 (4WW) PT Evaluation-Current Subjective Pt. in bed and agrees to therapy. She denies pain while at rest. Pt/Family Goals home with spouse Objective Patient Orientation: Person, Place, Time, Situation Attachments: Oxygen ROM/Strength ROM Upper Extremities WFL ROM Lower Extremities WFL Strength Upper Extremities WFL Strength Lower Extremities Grossly 4/5 knee and ankle, (B) hips not assessed at this time Integumentary/Posture Integumentary laceration at R arm, see nursing notes Bowel Incontinence: No Bladder Incontinence: Woody Cath Posture generally upright, forward head position Neuromuscular (Tone, Coordination, Reflexes) mild rigidity, otherwise unremarkable Sensory Vision: Wears Glasses Hearing: Functional Sensation Right Upper Extremit: Intact Sensation Left Upper Extremity: Intact Sensation Right Lower Extremit: Intact Sensation Left Lower Extremity: Intact Transfers Functional [place] Measure 0=Not Assessed/NA 4=Minimal Assistance 1=Total Assistance 5=Supervision or Setup 2=Maximal Assistance 6=Modified [place] 3=Moderate Assistance 7=Complete [place] Transfers (B, C, W/C) (FIM): 3 Supine to/from Sit: 3 Sit to/from Stand: 4 bed t/f WC(FIM only if WC use): 3 pt. is retropulsive during transfer, takes small shuffled steps and reports increased pain while stepping but does not give objective pain rating Gait Mode of Locomotion: Walk Anticipated Mode of Locomotion: Walk Balance Sitting Static: Good Sitting Dynamic: Good Standing Static: Fair Standing Dynamic: Fair Assessment/Needs Pt. is an 82 y.o. female who sustained a pelvic fracture after falling backwards at home. Pt. has decreased mobility and LE weakness and would benefit from skilled PT to improve mobility and strength for safe return home with spouse. Rehab Potential: Good PT Easement Man Goals Jail Goals PT Easement Man Goals Time Frame: Sep 20, 2017 Transfers (B,C,W/C) (FIM): 5 Gait (FIM): 4 Gait distance (FIM): 3=150 ft Distance: 50 ft Gait Level of Assist: 4 Gait Assistive Device: FWW PT Plan Problem List Problem List: Activity Tolerance, Functional Strength, Safety, Balance, Gait, Transfer, Bed Mobility, ROM Treatment/Plan Treatment Plan: Continue Plan of Care Treatment Plan: Bed Mobility, Education, Functional Activity Azucena, Functional Strength, Gait, Safety, Therapeutic Exercise, Transfers Treatment Duration: Sep 20, 2017 Frequency: 11 times per week Estimated Hrs Per Day: 1 hour per day Patient and/or Family Agrees t: Yes Discharge Recommendations Therapy D/C Recommendations: Acute Rehab, Care Home (TCU/NH) Time/GCodes Time In: 850 Time Out: 935 Total Billed Treatment Time: 45 Total Billed Treatment 1, SHRAVAN ISLAS 25' PITER JONES PT Sep 14, 2017 11:10
[2017-09-14] MEDS ORDERED: NON-FORMULARY MEDICATION 1 EA EA (Nitroglycerin (Nitrostat) 0.4 MG) SL PRN (11:45)
[2017-09-14] MEDS ORDERED: FUROSEMIDE 20 MG (LASIX) TAB PO PRN (11:45)
[2017-09-14] MEDS ORDERED: ALPRAZolam 0.25 MG (XANAX) TAB PO PRN (11:45)
[2017-09-14] MEDS ORDERED: KCL 20 MEQ TAB (K-DUR) PO PRN (11:45)
--- NOTE | 2017-09-14 11:55 | History & Physical-Hospitalist ---
History of Present Illness HPI/Chief Complaint CC: Pelvic fracture HPI: This is an 82-year-old white female known to me from prior hospital stays more specifically in inpatient rehabilitation covering for Dr. Bonds who has a past medical history of severe Parkinson's and has had multiple falls in the past and sustained a fall yesterday found to have pubic rami fracture of the superior region and orthopedic surgery was consulted and found the patient to not be a surgical candidate and is currently managing the pain and has been up in the chair already today. Woody catheter remains. We did talk about inpatient rehabilitation on second floor of which she is been there before and that sounded good to her if that is something that she meets criteria for. I reconciled and restarted all of her home medications including her Parkinson's medications. She did have a bowel movement and she is on Colace. Source: patient, family, RN/MD Exam Limitations: no limitations Date Seen 09/14/17 Time Seen by Provider: 11:00 Attending Physician Jazz Bonds MD PCP Jazz Bonds MD Referring Physician Date of Admission Sep 13, 2017 at 19:36 Home Medications & Allergies Home Medications Reviewed patient Home Medication Reconciliation performed by pharmacy medication reconciliations identification technician and/or nursing. Patients Allergies have been reviewed. Allergies Allergies Coded Allergies Penicillins (Verified Allergy, Mild, 08/05/13) Past Uglltgr-Hutswm-Zrrceb Hx Past Med/Social Hx: Reviewed Nursing Past Med/Soc Hx, Reviewed and Corrections made Patient Social History Marrital Status: Employed/Student: retired Alcohol Use: Denies Use Recreational Drug Use: No Smoking Status: Never a Smoker 2nd Hand Smoke Exposure: No Physical Abuse Screen: No Sexual Abuse: No Recent Foreign Travel: No Contact w/other who traveled: No Recent Hopitalizations: No Recent Infectious Disease Expo: No Immunizations Up To Date Tetanus Booster (TDap): Unknown Pediatric: No Date of Influenza Vaccine: Feb 07, 2017 Seasonal Allergies Seasonal Allergies: No Past Medical History Surgeries: Abdominal, Appendectomy, Breast, Gallbladder, Hysterectomy, Oophorectomy Currently Using CPAP: No Currently Using BIPAP: No Cardiac: High Cholesterol, Hypertension Neurological: Parkinson's Disease Reproductive: No Sexually Transmitted Disease: No HIV/AIDS: No Female Reproductive Disorders: Denies Gastrointestinal: Gastroesophageal Reflux Musculoskeletal: Chronic Back Pain HEENT: Cataract Cancer: Breast, Colon History of Blood Disorders: No Adverse Reaction to Blood Wall: No Family History Cancer 19 FATHER (BLADDER) 19 MOTHER (LIVER ) Myocardial infarction 19 MOTHER Parkinson's disease 19 FATHER Cancer Review of Systems Constitutional: see HPI, weakness EENTM: no symptoms reported Respiratory: no symptoms reported Cardiovascular: no symptoms reported Gastrointestinal: no symptoms reported Genitourinary: no symptoms reported Musculoskeletal: back pain, joint pain Skin: no symptoms reported Psychiatric/Neurological: No Symptoms Reported All Other Systems Reviewed Negative Unless Noted: Yes Physical Exam Physical Exam Vital Signs Vital Signs - First Documented 09/13/17 17:45 Temp 97.1 Pulse 88 Resp 18 B/P (MAP) 127/92 (104) Pulse Ox 100 O2 Delivery Nasal Cannula O2 Flow Rate 2.00 Capillary Refill : Less Than 3 SecondsLess Than 3 Seconds General Appearance: No Apparent Distress, WD/WN, Chronically ill, Thin, Other ( Very flat affect delayed response due to Parkinson's) Eyes: Bilateral Eye Normal Inspection, Bilateral Eye PERRL HEENT: PERRL/EOMI, Normal ENT Inspection, Pharynx Normal Neck: Full Range of Motion, Normal Inspection, Non Tender, Supple, Carotid Bruit Respiratory: Chest Non Tender, Lungs Clear, Normal Breath Sounds, No Accessory Muscle Use, No Respiratory Distress Cardiovascular: Regular Rate, Rhythm, No Edema, No Gallop, No JVD, No Murmur, Normal Peripheral Pulses Gastrointestinal: Normal Bowel Sounds, No Organomegaly, No Pulsatile Mass, Non Tender, Soft Back: Normal Inspection, No CVA Tenderness, No Vertebral Tenderness Extremity: Normal Capillary Refill, Normal Inspection, Normal Range of Motion ( Limited range of motion due to pubic rami fracture), Non Tender, No Calf Tenderness, No Pedal Edema Neurologic/Psychiatric: Alert, Oriented x3, No Motor/Sensory Deficits, Depressed Affect Skin: Normal Color, Warm/Dry Lymphatic: No Adenopathy Results Results/Procedures Labs Laboratory Tests 09/13/17 17:45 Patient resulted labs reviewed. Assessment/Plan Admission Diagnosis Pubic ramus fracture PD Admission Status: Inpatient Order (span 2 midnights) Reason for Inpatient Admission: Pt will require at least 3 days of pain control for pubic rami fracture then may require nursing facility Assessment and Plan Plan: Pain control BM regimen Home meds IRF? Diagnosis/Problems Diagnosis/Problems (1) Pubic ramus fracture Status: Acute Qualifiers: Encounter type: initial encounter Fracture type: closed Laterality: unspecified laterality Qualified Codes: S32.599A - Other specified fracture of unspecified pubis, initial encounter for closed fracture (2) Fall Status: Acute Qualifiers: Encounter type: initial encounter Qualified Codes: W19.XXXA - Unspecified fall, initial encounter (3) Parkinson disease Status: Chronic (4) COPD (chronic obstructive pulmonary disease) Status: Acute Qualifiers: COPD type: unspecified COPD Qualified Codes: J44.9 - Chronic obstructive pulmonary disease, unspecified (5) HTN (hypertension) Status: Acute Qualifiers: Hypertension type: essential hypertension Qualified Codes: I10 - Essential (primary) hypertension (6) Gastroesophageal reflux disease Status: Chronic Qualifiers: Esophagitis presence: without esophagitis Qualified Codes: K21.9 - Gastro- esophageal reflux disease without esophagitis Clinical Quality Measures DVT/VTE Risk/Contraindication: Risk Factor Score Per Nursin RFS Level Per Nursing on Admit: 4+=Very High JEWEL REVELES DO Sep 14, 2017 11:55
[2017-09-14 12:00] VITALS: BP 102/54
[2017-09-14] MEDS ORDERED: [UNRECOGNIZED DRUG - OTHER] PO SCH (12:00)
[2017-09-14] MEDS ORDERED: LEVODOPA PO SCH ×2 (12:00→21:00)
[2017-09-14] MEDS ORDERED: ASPIRIN E.C. 81 MG (ECOTRIN) TAB PO SCH (12:00)
[2017-09-14] MEDS ORDERED: CARBIDOPA PO SCH ×2 (12:00→21:00)
[2017-09-14] MEDS: SINEMET 25/100 (CARBIDOPA/LEVODOPA) TAB PO SCH ×2 (12:42→20:09)
--- NOTE | 2017-09-14 14:46 | Occupational Therapy Eval ---
OT Evaluation-General/PLF Medical Diagnosis Admission Date Sep 13, 2017 at 19:36 Medical Diagnosis: R superior pubic ramus fracture Onset Date: Sep 13, 2017 Therapy Diagnosis Therapy Diagnosis: decr self care, weakness, decr funct mobility, decr act tolerance Height/Weight Height (Feet): 5 Height (Inches): 9.00 Weight (Pounds): 130 Weight (Ounces): 8.0 Precautions Precautions/Isolations: Fall Prevention, Standard Precautions, Pressure Ulcer Safety Interventions: None Weight Bear Status Weight Bearing Restriction: Weight Bearing/Tolerated Location Restriction: R LE Referral Physician: Dr. Bonds Referral Reason: Evaluation/Treatment Medical History Pertinent Medical History: COPD, GERD, HTN, Parkinson's Additional Medical History Parkinsons. Urinary urgency. Chronic neck and shoulder pain, chronic back pain. Breast and colon cancer Current History Fell at home doing laundry. Conservative tx pelvic and sacral fractures. Social History Home: Single Level Current Living Status: Spouse ADL-Prior Level of Function ADL PLOF Comments Pt reported that she has been able to manage all of her basic slef care tasks except that her helps her in/out of tub with chair and helps wash her back. 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 She was on [facility] earlier this year and went home min-SBA for most ADLs OT Current Status Subjective Pt seen in room, up in bed, agreeable to OT. pain at rest 2-3/10 but "it hurts a lot" getting up. Appearance Alert, cooperative, softspoken Mental Status/Objective Attachments: IV, Polar Pack, Telemetry Current Glasses/Contacts: Yes Upper Extremity ROM Grossly WFL bilat Upper Extremity Strength grossly 4/5 bilat ADL-Treatment ADL-Current Pt was able to get a drink and said that she has been able to feed herself. PT eval showed mod assist transfers, min assist sit to stand, retropulsive Functional [place] Measure 0=Not Assessed/NA 4=Minimal Assistance 1=Total Assistance 5=Supervision or Setup 2=Maximal Assistance 6=Modified [place] 3=Moderate Assistance 7=Complete IndependenceIRFPAI Quality Coding Scale 6 Independent with activity with or without an assistive device 5 Patient requires set up or clean up by helper. Patient completes activity by themselves 4 Supervision or touching assist (CGA). [place] provide cues , steadying assist 3 The helper provides less than half the effort to complete the activity 2 The helper provides more than half the effort to complete the activity 1 Dependent. The helper does all the effort to complete an activity 7 Patient refused to complete or attempt activity 9 The patient did not perform the activity before the current illness or injury 88 Not attempted due to Medical conditions or safety concerns Education OT Patient Education: Purpose of tx/functional activities, Rehab process Teaching Recipient: Patient Teaching Methods: Discussion Response to Teaching: Verbalize Understanding OT Prison Goals Sustainable Systems Analyst Goals Time Frame: Sep 30, 2017 Eating (FIM): 6 Grooming(FIM): 5 Bathing(FIM): 5 Upper Body Dressing(FIM): 5 Lower Body Dressing(FIM): 5 Toileting(FIM): 5 Toilet/Commode Transfer(FIM): 5 Shower Transfer(FIM): 5 Additional Goals: 1-Demonstrate ADL Tasks, 2-Verbalize Understanding, 3- ImproveStrength/Azucena 1=Demonstrate adherence to instructed precautions during ADL tasks. 2=Patient will verbalize/demonstrate understanding of assistive devices/ modifications for ADL. 3=Patient will improve strength/tolerance for activity to enable patient to perform ADL's. OT Education/Plan Problem List/Assessment Assessment: Decreased Activ Tolerance, Decreased UE Strength, Dependent Transfers, Impaired Bed Mobility, Impaired Self-Care Skills Pt would benefit from skilled OT to increase her independence in basic self care to allow her to safely return home Discharge Recommendations Plan/Recommendations: Continue POC Therapy D/C Recommendations: [facility] (TCU/[facility]) Target Placement Pt is considering [facility] skilled unit Treatment Plan/Plan of Care Treatment,Training & Education: Yes Patient would benefit from OT for education, treatment and training to promote independence in ADL's, mobility, safety and/or upper extremity function for ADL' s. Plan of Care: ADL Retraining, Functional Mobility, UE Funct Exercise/Act, UE Neuromus Re-Ed/Coord Treatment Duration: Sep 30, 2017 Frequency: 5 times per week Estimated Hrs Per Day: .5 hour per day Agreement: Yes Rehab Potential: Good Time/GCodes Start Time: 14:05 Stop Time: 14:18 Total Time Billed (hr/min): 13 Billed Treatment Time visit, evaluation moderate intensity 13 minutes JANELLE JOYNER OT Sep 14, 2017 14:46
[2017-09-14] MEDS ORDERED: PATIENT MAY USE OWN MED,SINGLE MED PO SCH (16:15)
[2017-09-14 16:56] VITALS: BP 110/62
[2017-09-14 19:55] VITALS: BP 106/53
[2017-09-14] MEDS: ALPRAZolam 0.25 MG (XANAX) TAB PO SCH (20:09)
[2017-09-14] MEDS: meTOprolol TARTRATE 25 MG (LOPRESSOR) TABLET PO SCH (20:09)
[2017-09-14] MEDS: PANTOPRAZOLE 20 MG TABLET (PROTONIX) PO SCH (20:09)
[2017-09-14] MEDS: SERTRALINE 50 MG (ZOLOFT) TABLET PO SCH (20:12)
[2017-09-14] MEDS ORDERED: [UNRECOGNIZED DRUG - OTHER] PO SCH (21:00)
[2017-09-14] MEDS ORDERED: OMEPRAZOLE 20 MG (PriLOSEC) CAP NON-FORMULARY PO SCH (21:00)
[2017-09-15] VITALS: BP 98/59
[2017-09-15] MEDS: OMEGA 3 (FISH OIL) 1000 MG CAP PO SCH (06:18)
[2017-09-15] MEDS: MULTIVIT W/MINERALS TAB (THERAGRAN M) PO SCH (06:18)
[2017-09-15] MEDS: CALCIUM CARB + VIT D 600 MG (CALCARB + D) TAB PO SCH (06:18)
[2017-09-15] MEDS: PANTOPRAZOLE 20 MG TABLET (PROTONIX) PO SCH ×2 (06:22→20:28)
[2017-09-15] MEDS: HYDROcodone/APAP 5 MG/325 MG (LORTAB) TAB PO PRN ×2 (06:26→20:28)
[2017-09-15 08:00] VITALS: BP 99/61
[2017-09-15] MEDS ORDERED: OMEGA PO SCH (09:00)
[2017-09-15] MEDS ORDERED: NON-FORMULARY MEDICATION 1 EA EA (Cholecalciferol (Vitamin D3) (Vitamin D3) 400 UNIT) PO SCH (09:00)
[2017-09-15] MEDS ORDERED: NON-FORMULARY MEDICATION 1 EA EA (Calcium Carbonate/Vitamin D3 (Calcium 500 + Vit D Caplet PO SCH (09:00)
[2017-09-15] MEDS ORDERED: RASAGILINE MESYLATE 1 MG PO SCH (09:00)
[2017-09-15] MEDS ORDERED: FATTY ACIDS PO SCH (09:00)
[2017-09-15] MEDS ORDERED: NON-FORMULARY MEDICATION 1 EA EA (Multivitamin (Daily Multiple Vitamin) 1 TAB) PO SCH (09:00)
[2017-09-15] MEDS ORDERED: NON-FORMULARY MEDICATION 1 EA EA (Vitamin B Complex & Vit C No.4 (Super B Complex) 150 MG) PO SCH (09:00)
[2017-09-15] MEDS: meTOprolol TARTRATE 25 MG (LOPRESSOR) TABLET PO SCH ×2 (09:12→20:28)
[2017-09-15] MEDS: DOCUSATE SODIUM 100 MG (COLACE) CAP PO SCH ×2 (09:13→20:28)
[2017-09-15] MEDS: SINEMET 25/100 (CARBIDOPA/LEVODOPA) TAB PO SCH ×3 (09:13→20:31)
[2017-09-15] MEDS: SPIRONOLACTONE 25 MG (ALDACTONE) TAB PO SCH (09:13)
[2017-09-15] MEDS: VITAMIN D3 400 UNITS (CHOLECALCIFEROL) TABLET PO SCH (09:13)
[2017-09-15] MEDS: ALPRAZolam 0.25 MG (XANAX) TAB PO SCH ×2 (09:13→20:32)
[2017-09-15] MEDS: RASAGILINE 1 MG TAB PO SCH (09:14)
--- NOTE | 2017-09-15 09:28 | Physical Therapy Daily Note ---
PT Daily Note-Current Subjective Patient agrees to PT. Family present initially. Pain Numeric Pain Scale: 10-Worst Possible Pain Location: Right Location Body Site: Pelvic Pain Description: Stabbing, Acute Comment: with meds issued Mental Status Patient Orientation: Normal For Age Transfers Functional [place] Measure 0=Not Assessed/NA 4=Minimal Assistance 1=Total Assistance 5=Supervision or Setup 2=Maximal Assistance 6=Modified [place] 3=Moderate Assistance 7=Complete IndependenceIRFPAI Quality Coding Scale 6 Independent with activity with or without an assistive device 5 Patient requires set up or clean up by helper. Patient completes activity by themselves 4 Supervision or touching assist (CGA). [place] provide cues , steadying assist 3 The helper provides less than half the effort to complete the activity 2 The helper provides more than half the effort to complete the activity 1 Dependent. The helper does all the effort to complete an activity 7 Patient refused to complete or attempt activity 9 The patient did not perform the activity before the current illness or injury 88 Not attempted due to Medical conditions or safety concerns Transfers (B, C, W/C) (FIM): 2 Scootin Rollin Supine to/from Sit: 2 Sit to/from Stand: 3 Bed to/from Chair: 3 Patient requires max assist due to right pelvic pain Weight Bearing Right Lower Extremity: Right Weight Bearing/Tolerated Left Lower Extremity: Left Weight Bearing/Tolerated as tolerated with a walker Gait Training Gait (FIM): 1 Distance (FIM): 1=up to 49 ft Distance: 6' Gait Level of Assist: 3 Gait Assistive Device: FWW shuffle gait sequence with patient having difficulty with weight bearing right and with weight shifting. Exercises Supine Ex: Ankle pumps, Quad Set, Heel Slides Supine Reps: 10 Seated Therapy Exercises: Long arc quads Seated Reps: 15 Assessment Patient tolerated minimal activity due to pain and weakness. Patient is up in recliner with needs met. PT to increase activity as tolerated by patient. PT Fire Extinguisher Sprinkler Inspector Goals Care Home Goals PT Fire Extinguisher Sprinkler Inspector Goals Time Frame: Sep 20, 2017 Transfers (B,C,W/C) (FIM): 5 Gait (FIM): 4 Gait distance (FIM): 3=150 ft Distance: 50 ft Gait Level of Assist: 4 Gait Assistive Device: FWW PT Plan Treatment/Plan Treatment Plan: Continue Plan of Care Treatment Plan: Bed Mobility, Education, Functional Activity Azucena, Functional Strength, Gait, Safety, Therapeutic Exercise, Transfers Treatment Duration: Sep 20, 2017 Frequency: 11 times per week Estimated Hrs Per Day: 1 hour per day Patient and/or Family Agrees t: Yes Time/GCodes Time In: 851 Time Out: 914 Total Billed Treatment Time: 23 Total Billed Treatment 1 visit GT 14 min EX 9 min REMINGTON PADGETT PT Sep 15, 2017 09:28
--- NOTE | 2017-09-15 11:30 | Occupational Ther Daily Note ---
OT Current Status-Daily Note Subjective Pt seen in room, up in recliner, agreeable to OT. Pt reports she only hurts when she has to get up and she didn't think it would "hurt this much." Appearance Alert, cooperative, slowed responses Mental Status/Objective Functional [place] Measure 0=Not Assessed/NA 4=Minimal Assistance 1=Total Assistance 5=Supervision or Setup 2=Maximal Assistance 6=Modified [place] 3=Moderate Assistance 7=Complete [place] Other Treatment Pt was up in recliner, agreeable to OT but declined ADLs, saying that she had already had a bath and brushed her teeth and didn't want to put clothes on. Pt educ in four different UE exercises with yellow theraband (low resistance), which she was able to do with occasional physical cues to do them correctly. She was able to track reps and switch sides without difficulty. Exercises to strengthen arms to help with transfers and ADLs. Pt left up in recliner, all needs met. Education OT Patient Education: Exercise program, Purpose of tx/functional activities Teaching Recipient: Patient Teaching Methods: Demonstration, Discussion Response to Teaching: Verbalize Understanding, Return Demonstration OT Short Term Goals Short Term Goals 1=Demonstrate adherence to instructed precautions during ADL tasks. 2=Patient will verbalize/demonstrate understanding of assistive devices/ modifications for ADL. 3=Patient will improve strength/tolerance for activity to enable patient to perform ADL's. OT Marine Structural Designer Goals Marine Structural Designer Goals Time Frame: Sep 30, 2017 Eating (FIM): 6 Grooming(FIM): 5 Bathing(FIM): 5 Upper Body Dressing(FIM): 5 Lower Body Dressing(FIM): 5 Toileting(FIM): 5 Toilet/Commode Transfer(FIM): 5 Shower Transfer(FIM): 5 Additional Goals: 1-Demonstrate ADL Tasks, 2-Verbalize Understanding, 3- ImproveStrength/Azucena 1=Demonstrate adherence to instructed precautions during ADL tasks. 2=Patient will verbalize/demonstrate understanding of assistive devices/ modifications for ADL. 3=Patient will improve strength/tolerance for activity to enable patient to perform ADL's. OT Education/Plan Problem List/Assessment Pt would benefit from skilled OT to increase her independence in basic self care to allow her to safely return home Discharge Recommendations Plan/Recommendations: Continue POC Treatment Plan/Plan of Care Patient would benefit from OT for education, treatment and training to promote independence in ADL's, mobility, safety and/or upper extremity function for ADL' s. Plan of Care: ADL Retraining, Functional Mobility, UE Funct Exercise/Act, UE Neuromus Re-Ed/Coord Treatment Duration: Sep 30, 2017 Frequency: 5 times per week Estimated Hrs Per Day: .5 hour per day Agreement: Yes Rehab Potential: Good Time/GCodes Start Time: 10:20 Stop Time: 10:40 Total Time Billed (hr/min): 20 Billed Treatment Time visit, 20 minutes exercise JANELLE JOYNER OT Sep 15, 2017 11:30
--- NOTE | 2017-09-15 13:42 | Physical Therapy Daily Note ---
PT Daily Note-Current Subjective Patient is up in recline and extremely lethargic and unable to vocalize due to weakness/lethargy. Patient spouse present. Pain Numeric Pain Scale: 10-Worst Possible Pain Location: Right Location Body Site: Pelvic Pain Description: Acute Mental Status Patient Orientation: Person, Time, Situation Attachments: Oxygen, Woody Catheter Transfers Functional [place] Measure 0=Not Assessed/NA 4=Minimal Assistance 1=Total Assistance 5=Supervision or Setup 2=Maximal Assistance 6=Modified [place] 3=Moderate Assistance 7=Complete IndependenceIRFPAI Quality Coding Scale 6 Independent with activity with or without an assistive device 5 Patient requires set up or clean up by helper. Patient completes activity by themselves 4 Supervision or touching assist (CGA). [place] provide cues , steadying assist 3 The helper provides less than half the effort to complete the activity 2 The helper provides more than half the effort to complete the activity 1 Dependent. The helper does all the effort to complete an activity 7 Patient refused to complete or attempt activity 9 The patient did not perform the activity before the current illness or injury 88 Not attempted due to Medical conditions or safety concerns Transfers (B, C, W/C) (FIM): 1 Scootin Rollin Supine to/from Sit: 1 Sit to/from Stand: 1 Patient is dependent assist with all mobility this p.m. due to lethargy. Weight Bearing Right Lower Extremity: Right Weight Bearing/Tolerated Left Lower Extremity: Left Weight Bearing/Tolerated as tolerated with a walker Assessment Patient repositioned to sidelying right with pillow placement. Patient unable to continue with therapy due to patient extreme lethargy. PT to increase activity as tolerated by patient. From a PT standpoint, patient would benefit from extended care facility secondary to patient inability to tolerate extensive therapies. PT Correction Goals Correction Goals PT Blood Or Blood Bank Technician Goals Time Frame: Sep 20, 2017 Transfers (B,C,W/C) (FIM): 5 Gait (FIM): 4 Gait distance (FIM): 3=150 ft Distance: 50 ft Gait Level of Assist: 4 Gait Assistive Device: FWW PT Plan Treatment/Plan Treatment Plan: Continue Plan of Care Treatment Plan: Bed Mobility, Education, Functional Activity Azucena, Functional Strength, Gait, Safety, Therapeutic Exercise, Transfers Treatment Duration: Sep 20, 2017 Frequency: 11 times per week Estimated Hrs Per Day: 1 hour per day Patient and/or Family Agrees t: Yes Discharge Recommendations Therapy D/C Recommendations: Correction Placement, Longterm (TCU/NH) Time/GCodes Time In: 1300 Time Out: 1312 Total Billed Treatment Time: 12 Total Billed Treatment 1 visit FA 12 min REMINGTON PADGETT PT Sep 15, 2017 13:41
[2017-09-15 16:20] VITALS: BP 121/54
--- NOTE | 2017-09-15 17:41 | Progress Note (SOAP) ---
Subjective Date Seen by Provider: Sep 15, 2017 Time Seen by Provider: 12:35 Subjective/Events-last exam Fwup right pubic rami fracture, Parkinson's disease. Falling asleep while sitting up eating lunch. Objective Exam Vital Signs Date Time Temp Pulse Resp B/P (MAP) Pulse Ox O2 Delivery O2 Flow Rate FiO2 09/15/17 16:20 98.2 86 18 121/54 (76) 97 Nasal Cannula 2.00 09/15/17 08:00 98.4 86 20 99/61 (74) 90 Nasal Cannula 2.00 09/15/17 08:00 Nasal Cannula 2.00 09/15/17 07:18 Nasal Cannula 2.00 09/15/17 00:00 97.9 109 16 98/59 (72) 96 Nasal Cannula 2.00 09/14/17 20:20 Nasal Cannula 2.00 09/14/17 19:55 112 106/53 (70) I & O 09/15/17 07:00 Intake Total 800 ml Output Total 525 ml Balance 275 ml Capillary Refill : Less Than 3 SecondsLess Than 3 Seconds General Appearance: No Apparent Distress, Other (grogginess) Neck: Supple Respiratory: Lungs Clear Cardiovascular: Regular Rate, Rhythm Gastrointestinal: normal bowel sounds, non tender, soft Extremity: Non Tender, No Calf Tenderness Neurologic/Psychiatric: Other (groggy) Assessment/Plan Assessment/Plan Assess & Plan/Chief Complaint 1. Right pubic rami fracture--add miacalcin nasal spray, pain control, PT/OT, await acute rehab eval 2. Parkinson's disease--sinemet restarted Clinical Quality Measures DVT/VTE Risk/Contraindication: Risk Factor Score Per Nursin RFS Level Per Nursing on Admit: 4+=Very High MELISSA DILLON DO Sep 15, 2017 5:41 pm
[2017-09-15] MEDS: SERTRALINE 50 MG (ZOLOFT) TABLET PO SCH (20:28)
[2017-09-16] VITALS: BP 88/45
[2017-09-16] MEDS: HYDROcodone/APAP 5 MG/325 MG (LORTAB) TAB PO PRN ×2 (03:50→20:48)
[2017-09-16 04:00] VITALS: BP 113/60
[2017-09-16 08:00] VITALS: BP 112/59
[2017-09-16] MEDS: CALCIUM CARB + VIT D 600 MG (CALCARB + D) TAB PO SCH (09:19)
[2017-09-16] MEDS: VITAMIN D3 400 UNITS (CHOLECALCIFEROL) TABLET PO SCH (09:19)
[2017-09-16] MEDS: SINEMET 25/100 (CARBIDOPA/LEVODOPA) TAB PO SCH ×3 (09:20→20:49)
[2017-09-16] MEDS: OMEGA 3 (FISH OIL) 1000 MG CAP PO SCH (09:20)
[2017-09-16] MEDS: DOCUSATE SODIUM 100 MG (COLACE) CAP PO SCH ×2 (09:20→20:50)
[2017-09-16] MEDS: SPIRONOLACTONE 25 MG (ALDACTONE) TAB PO SCH (09:20)
[2017-09-16] MEDS: PANTOPRAZOLE 20 MG TABLET (PROTONIX) PO SCH ×2 (09:20→20:49)
[2017-09-16] MEDS: meTOprolol TARTRATE 25 MG (LOPRESSOR) TABLET PO SCH ×2 (09:21→20:50)
[2017-09-16] MEDS: RASAGILINE 1 MG TAB PO SCH (09:21)
[2017-09-16] MEDS: ALPRAZolam 0.25 MG (XANAX) TAB PO SCH ×2 (09:21→20:54)
[2017-09-16] MEDS: NITROGLYCERIN 0.4 MG SL TABS BTL 25'S SL PRN ×2 (09:27→09:38)
--- NOTE | 2017-09-16 10:05 | Physical Therapy Progress Note ---
Therapy Progress Note Visit attempt a 930. Pt expressing chest discomfort. Nursing present and giving medication. Informed pt this therapist would attempt visit later. NATANAEL KENNEDY PT Sep 16, 2017 10:05
--- NOTE | 2017-09-16 10:30 | Physical Therapy Progress Note ---
Therapy Progress Note Attempted visit at 1025. Nursing staff had just assist pt back to bed. Will return later NATANAEL KENNEDY PT Sep 16, 2017 10:30
[2017-09-16] MEDS ORDERED: MILK OF MAGNESIA 400 MG/5 ML 30 ML UDC PO NR (11:36)
--- NOTE | 2017-09-16 11:37 | Progress Note (SOAP) ---
Subjective Date Seen by Provider: Sep 16, 2017 Time Seen by Provider: 11:35 Subjective/Events-last exam Fwup right pubic rami fracture, Parkinson's disease. Not as drowsy. Pain not as severe--did more with PT. Had reflux this morning but better now. Objective Exam Vital Signs Date Time Temp Pulse Resp B/P (MAP) Pulse Ox O2 Delivery O2 Flow Rate FiO2 09/16/17 08:42 Nasal Cannula 2.00 09/16/17 08:00 97.5 89 14 112/59 (76) 99 Nasal Cannula 2.00 09/16/17 04:00 98.3 94 20 113/60 (77) 97 Nasal Cannula 2.00 09/16/17 00:00 98.7 96 20 88/45 (59) 98 Nasal Cannula 2.00 09/15/17 16:20 98.2 86 18 121/54 (76) 97 Nasal Cannula 2.00 I & O 09/16/17 07:00 Intake Total 897 ml Output Total 500 ml Balance 397 ml Capillary Refill : Less Than 3 SecondsLess Than 3 Seconds General Appearance: No Apparent Distress Neck: Supple Respiratory: Lungs Clear Cardiovascular: Regular Rate, Rhythm, Systolic Murmur Gastrointestinal: normal bowel sounds, non tender, soft Extremity: Non Tender, No Calf Tenderness, No Pedal Edema Neurologic/Psychiatric: Alert Skin: Warm/Dry Assessment/Plan Assessment/Plan Assess & Plan/Chief Complaint 1. Right pubic rami fracture-- pain control, PT/OT, should know by this afternoon if will qualify for acute rehab, DC hay catheter 2. Parkinson's disease--sinemet restarted 3. GERD--on protonix Clinical Quality Measures DVT/VTE Risk/Contraindication: Risk Factor Score Per Nursin RFS Level Per Nursing on Admit: 4+=Very High MELISSA DILLON DO Sep 16, 2017 11:37
[2017-09-16] MEDS ORDERED: MILK OF MAGNESIA 400 MG/5 ML 30 ML UDC PO PRN (11:45)
[2017-09-16] MEDS: MULTIVIT W/MINERALS TAB (THERAGRAN M) PO SCH (12:06)
--- NOTE | 2017-09-16 12:22 | Physical Therapy Daily Note ---
PT Daily Note-Current Subjective Agrees to get up to the chair for lunch., Pain Numeric Pain Scale: 8 Location: Bone Location Body Site: Pelvic Pain Description: Ache Mental Status Patient Orientation: Person, Place, Time, Situation Attachments: Oxygen, Woody Catheter Transfers Functional [place] Measure 0=Not Assessed/NA 4=Minimal Assistance 1=Total Assistance 5=Supervision or Setup 2=Maximal Assistance 6=Modified [place] 3=Moderate Assistance 7=Complete IndependenceIRFPAI Quality Coding Scale 6 Independent with activity with or without an assistive device 5 Patient requires set up or clean up by helper. Patient completes activity by themselves 4 Supervision or touching assist (CGA). [place] provide cues , steadying assist 3 The helper provides less than half the effort to complete the activity 2 The helper provides more than half the effort to complete the activity 1 Dependent. The helper does all the effort to complete an activity 7 Patient refused to complete or attempt activity 9 The patient did not perform the activity before the current illness or injury 88 Not attempted due to Medical conditions or safety concerns Transfers (B, C, W/C) (FIM): 1 Scootin (assist of 2) Rollin (asssit of 2) Supine to/from Sit: 1 (assist of 2) Sit to/from Stand: 2 (max assist with cues for hand placmeent and sequencing. ) Bed to/from Chair: 2 (FWW, assist of 2; pt takes short fast steps; stops and repeats. painful) Weight Bearing Right Lower Extremity: Right Weight Bearing/Tolerated Left Lower Extremity: Left Weight Bearing/Tolerated as tolerated with a walker Treatments out of bed and up to chair. legs elevated, pt comfortable and needs met post treatment. Assessment Current Status: Fair Progress All movement is painful at this time. Difficulty with movement without dependent assist. PT Behavioral Health Assistant Goals Jail Goals PT Jail Goals Time Frame: Sep 20, 2017 Transfers (B,C,W/C) (FIM): 5 Gait (FIM): 4 Gait distance (FIM): 3=150 ft Distance: 50 ft Gait Level of Assist: 4 Gait Assistive Device: FWW PT Plan Problem List Problem List: Activity Tolerance, Functional Strength, Safety, Balance, Gait, Transfer, Bed Mobility Treatment/Plan Treatment Plan: Continue Plan of Care Treatment Plan: Bed Mobility, Education, Functional Activity Azucena, Functional Strength, Gait, Safety, Therapeutic Exercise, Transfers Treatment Duration: Sep 20, 2017 Frequency: 11 times per week Estimated Hrs Per Day: 1 hour per day Patient and/or Family Agrees t: Yes Safety Risks/Education Patient Education: Transfer Techniques, Safety Issues Teaching Recipient: Patient Teaching Methods: Discussion Response to Teaching: Reinforcement Needed Discharge Recommendations Plan Progress functional transfers and gait as pt able. Possibly take pain meds prior to therapy session. Time/GCodes Time In: 1130 Time Out: 1200 Total Billed Treatment Time: 30 Total Billed Treatment visit FA 30 NATANAEL KENNEDY PT Sep 16, 2017 12:22
[2017-09-16 12:38] VITALS: BP 121/65
--- NOTE | 2017-09-16 13:36 | Physical Therapy Daily Note ---
PT Daily Note-Current Subjective Patient on commode pre tx, agrees to PT, has 10/10 pain in right leg/pelvis. Appearance Patient BTB post tx with nurse call, phone, tray, all needs met. in the room. Mental Status Patient Orientation: Person, Place, Situation Transfers Functional [place] Measure 0=Not Assessed/NA 4=Minimal Assistance 1=Total Assistance 5=Supervision or Setup 2=Maximal Assistance 6=Modified [place] 3=Moderate Assistance 7=Complete IndependenceIRFPAI Quality Coding Scale 6 Independent with activity with or without an assistive device 5 Patient requires set up or clean up by helper. Patient completes activity by themselves 4 Supervision or touching assist (CGA). [place] provide cues , steadying assist 3 The helper provides less than half the effort to complete the activity 2 The helper provides more than half the effort to complete the activity 1 Dependent. The helper does all the effort to complete an activity 7 Patient refused to complete or attempt activity 9 The patient did not perform the activity before the current illness or injury 88 Not attempted due to Medical conditions or safety concerns Transfers (B, C, W/C) (FIM): 2 Scootin Rollin Supine to/from Sit: 1 Sit to/from Stand: 2 Bed to/from Chair: 2 Patient can assist with transfers and sit to stand but still max assist. Cues for positioning and safety. Weight Bearing Right Lower Extremity: Right Weight Bearing/Tolerated Left Lower Extremity: Left Weight Bearing/Tolerated as tolerated with a walker Gait Training Gait (FIM): 1 Distance: 2' Gait Level of Assist: 2 Gait Persons Needed: 2 Gait Assistive Device: FWW Patient needed assist moving her legs. Exercises Supine Ex: Ankle pumps, Quad Set, Glut sets Supine Reps: 15 Treatments bed mobility and transfers, functional strengthening Assessment Current Status: Poor Progress SCD's donned post tx with heels elevated on pillow PT Fpc Goals Fpc Goals PT Fpc Goals Time Frame: Sep 20, 2017 Transfers (B,C,W/C) (FIM): 5 Gait (FIM): 4 Gait distance (FIM): 3=150 ft Distance: 50 ft Gait Level of Assist: 4 Gait Assistive Device: FWW PT Plan Problem List Problem List: Activity Tolerance, Functional Strength, Safety, Balance, Gait, Transfer, Bed Mobility, ROM Treatment/Plan Treatment Plan: Continue Plan of Care Treatment Plan: Bed Mobility, Education, Functional Activity Azucena, Functional Strength, Gait, Safety, Therapeutic Exercise, Transfers Treatment Duration: Sep 20, 2017 Frequency: 11 times per week Estimated Hrs Per Day: 1 hour per day Patient and/or Family Agrees t: Yes Safety Risks/Education Patient Education: Transfer Techniques, Correct Positioning, Safety Issues Teaching Recipient: Patient Teaching Methods: Demonstration, Discussion Response to Teaching: Reinforcement Needed Time/GCodes Time In: 1310 Time Out: 1328 Total Billed Treatment Time: 18 Total Billed Treatment 1 visit FA ABDIFATAH AG PT Sep 16, 2017 13:36
--- NOTE | 2017-09-16 16:05 | Occupational Ther Daily Note ---
OT Current Status-Daily Note Subjective Pt seen in room, up in bed, agreeable to OT. Pt reported some discomfort in R hip area when she does arm exercises Appearance Alert, cooperative, softspoken Mental Status/Objective Functional [place] Measure 0=Not Assessed/NA 4=Minimal Assistance 1=Total Assistance 5=Supervision or Setup 2=Maximal Assistance 6=Modified [place] 3=Moderate Assistance 7=Complete [place] Other Treatment Pt education on two different bilat UE exercises that she can do on her own in bed or up in recliner. She did 10 reps each one with hands clasped together and then 10 reps with each arm separately. These work on shoulder strength and elbow extension as needed for helping with transfers. Pt verbalized understanding and was able to track repetitions herself. Pt left up in bed, eating a snack, all needs met. Education OT Patient Education: Exercise program, Purpose of tx/functional activities Teaching Recipient: Patient Teaching Methods: Demonstration, Discussion Response to Teaching: Verbalize Understanding, Return Demonstration, Reinforcement Needed OT Short Term Goals Short Term Goals 1=Demonstrate adherence to instructed precautions during ADL tasks. 2=Patient will verbalize/demonstrate understanding of assistive devices/ modifications for ADL. 3=Patient will improve strength/tolerance for activity to enable patient to perform ADL's. OT Group Therapy Counselor Goals Senior Living Goals Time Frame: Sep 30, 2017 Eating (FIM): 6 Grooming(FIM): 5 Bathing(FIM): 5 Upper Body Dressing(FIM): 5 Lower Body Dressing(FIM): 5 Toileting(FIM): 5 Toilet/Commode Transfer(FIM): 5 Shower Transfer(FIM): 5 Additional Goals: 1-Demonstrate ADL Tasks, 2-Verbalize Understanding, 3- ImproveStrength/Azucena 1=Demonstrate adherence to instructed precautions during ADL tasks. 2=Patient will verbalize/demonstrate understanding of assistive devices/ modifications for ADL. 3=Patient will improve strength/tolerance for activity to enable patient to perform ADL's. OT Education/Plan Problem List/Assessment Pt would benefit from skilled OT to increase her independence in basic self care to allow her to safely return home Discharge Recommendations Plan/Recommendations: Continue POC Treatment Plan/Plan of Care Patient would benefit from OT for education, treatment and training to promote independence in ADL's, mobility, safety and/or upper extremity function for ADL' s. Plan of Care: ADL Retraining, Functional Mobility, UE Funct Exercise/Act, UE Neuromus Re-Ed/Coord Treatment Duration: Sep 30, 2017 Frequency: 5 times per week Estimated Hrs Per Day: .5 hour per day Agreement: Yes Rehab Potential: Good Time/GCodes Start Time: 14:26 Stop Time: 14:44 Total Time Billed (hr/min): 18 Billed Treatment Time visit, 18 minutes exercise JANELLE JOYNER OT Sep 16, 2017 16:05
[2017-09-16 16:10] VITALS: BP 98/59
[2017-09-16] MEDS: SERTRALINE 50 MG (ZOLOFT) TABLET PO SCH (20:49)
[2017-09-17 00:07] VITALS: BP 107/52
[2017-09-17 04:00] VITALS: BP 114/59
[2017-09-17] MEDS: HYDROcodone/APAP 5 MG/325 MG (LORTAB) TAB PO PRN ×4 (04:33→23:12)
[2017-09-17] MEDS: MULTIVIT W/MINERALS TAB (THERAGRAN M) PO SCH (06:22)
[2017-09-17] MEDS: OMEGA 3 (FISH OIL) 1000 MG CAP PO SCH (06:22)
[2017-09-17] MEDS: PANTOPRAZOLE 20 MG TABLET (PROTONIX) PO SCH ×2 (06:22→21:07)
[2017-09-17] MEDS: CALCIUM CARB + VIT D 600 MG (CALCARB + D) TAB PO SCH (06:22)
[2017-09-17 08:00] VITALS: BP 115/74
[2017-09-17] MEDS: CALCITONIN NASAL 200 INTLU/AC (FORTICAL) 3.7 ML BTL SCH ×2 (08:50→08:59)
[2017-09-17] MEDS: meTOprolol TARTRATE 25 MG (LOPRESSOR) TABLET PO SCH ×2 (08:51→21:07)
[2017-09-17] MEDS: VITAMIN D3 400 UNITS (CHOLECALCIFEROL) TABLET PO SCH (08:51)
[2017-09-17] MEDS: SPIRONOLACTONE 25 MG (ALDACTONE) TAB PO SCH (08:51)
[2017-09-17] MEDS: DOCUSATE SODIUM 100 MG (COLACE) CAP PO SCH ×2 (08:52→21:07)
[2017-09-17] MEDS: SINEMET 25/100 (CARBIDOPA/LEVODOPA) TAB PO SCH ×3 (08:52→21:07)
[2017-09-17] MEDS: RASAGILINE 1 MG TAB PO SCH (08:53)
[2017-09-17] MEDS: ALPRAZolam 0.25 MG (XANAX) TAB PO SCH ×2 (08:54→21:07)
--- NOTE | 2017-09-17 10:40 | Physical Therapy Daily Note ---
PT Daily Note-Current Subjective Pt reporting (R) hip/pelvic pain with any LE movement. Pain Numeric Pain Scale: 5-Moderate Pain Location: Right Location Body Site: Hip Pain Description: Sharp Transfers Functional [place] Measure 0=Not Assessed/NA 4=Minimal Assistance 1=Total Assistance 5=Supervision or Setup 2=Maximal Assistance 6=Modified [place] 3=Moderate Assistance 7=Complete IndependenceIRFPAI Quality Coding Scale 6 Independent with activity with or without an assistive device 5 Patient requires set up or clean up by helper. Patient completes activity by themselves 4 Supervision or touching assist (CGA). [place] provide cues , steadying assist 3 The helper provides less than half the effort to complete the activity 2 The helper provides more than half the effort to complete the activity 1 Dependent. The helper does all the effort to complete an activity 7 Patient refused to complete or attempt activity 9 The patient did not perform the activity before the current illness or injury 88 Not attempted due to Medical conditions or safety concerns Transfers (B, C, W/C) (FIM): 1 Scootin Rollin Supine to/from Sit: 1 Sit to/from Stand: 2 Bed to/from Chair: 2 Weight Bearing Right Lower Extremity: Right Weight Bearing/Tolerated Left Lower Extremity: Left Weight Bearing/Tolerated as tolerated with a walker Exercises Supine Ex: LE Protocol Supine Reps: 15 Seated Therapy Exercises: Ankle pumps, Long arc quads Seated Reps: 15 Assessment Pt is very limited by pain. She required total to max assist for all aspects of mobility. PT Industrial Ecology Technician Goals Senior Living Goals PT Industrial Ecology Technician Goals Time Frame: Sep 20, 2017 Transfers (B,C,W/C) (FIM): 5 Gait (FIM): 4 Gait distance (FIM): 3=150 ft Distance: 50 ft Gait Level of Assist: 4 Gait Assistive Device: FWW PT Plan Treatment/Plan Treatment Plan: Continue Plan of Care Treatment Plan: Bed Mobility, Education, Functional Activity Azucena, Functional Strength, Gait, Safety, Therapeutic Exercise, Transfers Treatment Duration: Sep 20, 2017 Frequency: 11 times per week Estimated Hrs Per Day: 1 hour per day Patient and/or Family Agrees t: Yes Time/GCodes Time In: 15 Time Out: 0947 Total Billed Treatment Time: 32 Total Billed Treatment 1, ex 22, fa 10 MIRANDA KHAN PT Sep 17, 2017 10:40
--- NOTE | 2017-09-17 11:07 | Progress Note-Hospitalist ---
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 Woody catheter remains. We did talk about inpatient rehabilitation on second floor of which she is been there before and that sounded good to her if that is something that she meets criteria for. I reconciled and restarted all of her home medications including her Parkinson's medications. She did have a bowel movement and she is on Colace. Subjective/Events-last exam Patient doing much better Pain is controlled as long as she doesn't move Bowels are moving started last night Likely will not meet criteria for inpatient rehabilitation and will likely need skilled care Denies any other issues Review of Systems General: Fatigue Musculoskeletal: leg pain Objective Exam Vital Signs Vital Signs Date Time Temp Pulse Resp B/P (MAP) Pulse Ox O2 Delivery O2 Flow Rate FiO2 09/17/17 09:03 96 Nasal Cannula 2.00 09/17/17 08:00 97.4 99 16 115/74 (88) Capillary Refill : Less Than 3 SecondsLess Than 3 Seconds General Appearance: No Apparent Distress, WD/WN, Chronically ill, Thin Respiratory: Lungs Clear, Normal Breath Sounds Cardiovascular: Regular Rate, Rhythm, No Edema Neurologic/Psychiatric: Alert, Oriented x3, No Motor/Sensory Deficits, Normal Mood/Affect Results/Procedures Lab Patient resulted labs reviewed. Assessment/Plan Assessment and Plan Assess & Plan/Chief Complaint Assessment: Acute pubic rami fracture Severe PD Falls Plan: Pain control BM regimen Home meds IRF vs SW Diagnosis/Problems Diagnosis/Problems (1) Pubic ramus fracture Status: Acute Qualifiers: Encounter type: initial encounter Fracture type: closed Laterality: unspecified laterality Qualified Codes: S32.599A - Other specified fracture of unspecified pubis, initial encounter for closed fracture (2) Fall Status: Acute Qualifiers: Encounter type: initial encounter Qualified Codes: W19.XXXA - Unspecified fall, initial encounter (3) Parkinson disease Status: Chronic (4) COPD (chronic obstructive pulmonary disease) Status: Acute Qualifiers: COPD type: unspecified COPD Qualified Codes: J44.9 - Chronic obstructive pulmonary disease, unspecified (5) HTN (hypertension) Status: Acute Qualifiers: Hypertension type: essential hypertension Qualified Codes: I10 - Essential (primary) hypertension (6) Gastroesophageal reflux disease Status: Chronic Qualifiers: Esophagitis presence: without esophagitis Qualified Codes: K21.9 - Gastro- esophageal reflux disease without esophagitis Clinical Quality Measures DVT/VTE Risk/Contraindication: Risk Factor Score Per Nursin RFS Level Per Nursing on Admit: 4+=Very High JEWEL REVELES DO Sep 17, 2017 11:07
[2017-09-17 15:55] VITALS: BP 97/55
[2017-09-17 21:03] VITALS: BP 122/62
[2017-09-17] MEDS: SERTRALINE 50 MG (ZOLOFT) TABLET PO SCH (21:07)
[2017-09-18 00:28] VITALS: BP 100/68
[2017-09-18] MEDS: OMEGA 3 (FISH OIL) 1000 MG CAP PO SCH (06:37)
[2017-09-18] MEDS: CALCIUM CARB + VIT D 600 MG (CALCARB + D) TAB PO SCH (06:37)
[2017-09-18] MEDS: MULTIVIT W/MINERALS TAB (THERAGRAN M) PO SCH (06:37)
[2017-09-18] MEDS: PANTOPRAZOLE 20 MG TABLET (PROTONIX) PO SCH ×2 (06:37→21:16)
[2017-09-18] MEDS: HYDROcodone/APAP 5 MG/325 MG (LORTAB) TAB PO PRN ×3 (06:37→16:28)
[2017-09-18 08:00] VITALS: BP 98/61
[2017-09-18] MEDS: SPIRONOLACTONE 25 MG (ALDACTONE) TAB PO SCH (08:49)
[2017-09-18] MEDS: DOCUSATE SODIUM 100 MG (COLACE) CAP PO SCH ×2 (08:49→21:16)
[2017-09-18] MEDS: meTOprolol TARTRATE 25 MG (LOPRESSOR) TABLET PO SCH ×2 (08:49→21:16)
[2017-09-18] MEDS: SINEMET 25/100 (CARBIDOPA/LEVODOPA) TAB PO SCH ×3 (08:49→21:16)
[2017-09-18] MEDS: VITAMIN D3 400 UNITS (CHOLECALCIFEROL) TABLET PO SCH (08:50)
[2017-09-18] MEDS: RASAGILINE 1 MG TAB PO SCH (08:50)
[2017-09-18] MEDS: CALCITONIN NASAL 200 INTLU/AC (FORTICAL) 3.7 ML BTL SCH (08:51)
[2017-09-18] MEDS: ALPRAZolam 0.25 MG (XANAX) TAB PO SCH ×3 (08:51→21:16)
--- NOTE | 2017-09-18 12:18 | Progress Note-Hospitalist ---
Subjective HPI/CC On Admission Date Seen by Provider: Sep 18, 2017 Time Seen by Provider: 11:00 CC: Pelvic fracture HPI: This is an 82-year-old white female known to me from prior hospital stays more specifically in inpatient rehabilitation covering for Dr. Bonds who has a past medical history of severe Parkinson's and has had multiple falls in the past and sustained a fall yesterday found to have pubic rami fracture of the superior region and orthopedic surgery was consulted and found the patient to not be a surgical candidate and is currently managing the pain and has been up in the chair already today. Woody catheter remains. We did talk about inpatient rehabilitation on second floor of which she is been there before and that sounded good to her if that is something that she meets criteria for. I reconciled and restarted all of her home medications including her Parkinson's medications. She did have a bowel movement and she is on Colace. Subjective/Events-last exam Patient denies pain and low she moves Woody catheter had to be placed again yesterday due to urinary retention Denies any other issues Bowels are moving Review of Systems General: Fatigue Musculoskeletal: leg pain Objective Exam Vital Signs Vital Signs Date Time Temp Pulse Resp B/P (MAP) Pulse Ox O2 Delivery O2 Flow Rate FiO2 09/18/17 08:28 Room Air 09/18/17 08:00 98.1 92 16 98/61 (73) 100 2.00 Capillary Refill : Less Than 3 SecondsLess Than 3 Seconds General Appearance: No Apparent Distress, WD/WN, Chronically ill, Thin Respiratory: Lungs Clear, Normal Breath Sounds Cardiovascular: Regular Rate, Rhythm, No Edema Neurologic/Psychiatric: Alert, Oriented x3, No Motor/Sensory Deficits, Normal Mood/Affect Results/Procedures Lab Patient resulted labs reviewed. Assessment/Plan Assessment and Plan Assess & Plan/Chief Complaint Assessment: Acute pubic rami fracture Severe PD Falls Plan: Pain control BM regimen Home meds IRF vs SW Woody catheter Diagnosis/Problems Diagnosis/Problems (1) Pubic ramus fracture Status: Acute Qualifiers: Encounter type: initial encounter Fracture type: closed Laterality: unspecified laterality Qualified Codes: S32.599A - Other specified fracture of unspecified pubis, initial encounter for closed fracture (2) Fall Status: Acute Qualifiers: Encounter type: initial encounter Qualified Codes: W19.XXXA - Unspecified fall, initial encounter (3) Parkinson disease Status: Chronic (4) COPD (chronic obstructive pulmonary disease) Status: Acute Qualifiers: COPD type: unspecified COPD Qualified Codes: J44.9 - Chronic obstructive pulmonary disease, unspecified (5) HTN (hypertension) Status: Acute Qualifiers: Hypertension type: essential hypertension Qualified Codes: I10 - Essential (primary) hypertension (6) Gastroesophageal reflux disease Status: Chronic Qualifiers: Esophagitis presence: without esophagitis Qualified Codes: K21.9 - Gastro- esophageal reflux disease without esophagitis (7) Urinary retention Status: Acute Clinical Quality Measures DVT/VTE Risk/Contraindication: Risk Factor Score Per Nursin RFS Level Per Nursing on Admit: 4+=Very High JEWEL REVELES DO Sep 18, 2017 12:18
[2017-09-18 16:00] VITALS: BP 108/66
[2017-09-18] MEDS: SERTRALINE 50 MG (ZOLOFT) TABLET PO SCH (21:16)
[2017-09-19] VITALS: BP 105/57
[2017-09-19] MEDS: HYDROcodone/APAP 5 MG/325 MG (LORTAB) TAB PO PRN ×2 (00:35→17:48)
[2017-09-19] MEDS: CALCIUM CARB + VIT D 600 MG (CALCARB + D) TAB PO SCH (06:09)
[2017-09-19] MEDS: MULTIVIT W/MINERALS TAB (THERAGRAN M) PO SCH (06:09)
[2017-09-19] MEDS: OMEGA 3 (FISH OIL) 1000 MG CAP PO SCH (06:09)
[2017-09-19] MEDS: PANTOPRAZOLE 20 MG TABLET (PROTONIX) PO SCH ×2 (06:11→21:39)
[2017-09-19] MEDS: SINEMET 25/100 (CARBIDOPA/LEVODOPA) TAB PO SCH ×3 (08:33→21:40)
[2017-09-19] MEDS: DOCUSATE SODIUM 100 MG (COLACE) CAP PO SCH ×2 (08:33→21:39)
[2017-09-19] MEDS: RASAGILINE 1 MG TAB PO SCH (08:33)
[2017-09-19] MEDS: VITAMIN D3 400 UNITS (CHOLECALCIFEROL) TABLET PO SCH (08:33)
[2017-09-19] MEDS: ALPRAZolam 0.25 MG (XANAX) TAB PO SCH ×2 (08:33→21:39)
[2017-09-19] MEDS: meTOprolol TARTRATE 25 MG (LOPRESSOR) TABLET PO SCH ×2 (08:33→21:39)
[2017-09-19] MEDS: SPIRONOLACTONE 25 MG (ALDACTONE) TAB PO SCH (08:33)
[2017-09-19] MEDS: CALCITONIN NASAL 200 INTLU/AC (FORTICAL) 3.7 ML BTL SCH (08:34)
--- NOTE | 2017-09-19 09:07 | Progress Note ---
Subjective Date Seen by Provider: Sep 19, 2017 Time Seen by Provider: 09:00 Subjective/Events-last exam PT REPORTS THAT SHE IS STILL HAVING A LOT OF DISCOMFORT IN HER PELVIS. PER STAFF REPORT - SHE IS HAVING SO MUCH PAIN THAT SHE DOES NOT WORK WELL WITH THERAPY. FAMILY IS INTERESTED IN TRYING INPATIENT REHAB IF POSSIBLE, BUT UNDERSTAND THAT [place] MOST LIKELY WILL NOT BE ABLE TO PARTICIPATE ENOUGH FOR INPT REHAB. Review of Systems General: Fatigue HEENT: No Head Aches Pulmonary: No Dyspnea; Cough Cardiovascular: No: Chest Pain, Palpitations Gastrointestinal: No: Nausea, Abdominal Pain Musculoskeletal: other (PELVIC PAIN) Neurological: Weakness; No: Confusion Objective Exam Last Set of Vital Signs Vital Signs Date Time Temp Pulse Resp B/P (MAP) Pulse Ox O2 Delivery O2 Flow Rate FiO2 09/19/17 00:00 98.0 94 22 105/57 (73) 100 Nasal Cannula 2.00 2.00 Capillary Refill : Less Than 3 SecondsLess Than 3 Seconds I&O Intake and Output 09/19/17 00:00 Intake Total 1490 ml Output Total 450 ml Balance 1040 ml Intake Oral 1490 ml Output Urine Total 450 ml # Bowel Movements 1 General: Alert, Oriented X3, Cooperative HEENT: Atraumatic Neck: Supple Lungs: Clear to Auscultation Heart: Regular Rate Abdomen: Normal Bowel Sounds, Soft Extremities: No Clubbing, No Cyanosis Psych/Mental Status: Mental Status NL, Mood NL Assessment/Plan Assessment/Plan Assess & Plan/Chief Complaint ACUTE PUBIC RAMI FRACTURE PARKINSON'S DISEASE WITH GAIT DYSFUNCTION GENERALIZED WEAKNESS FALLING EPISODES AT HOME HYPERTENSION GERD DEPRESSION ANXIETY ACUTE PUBIC RAMI FRACTURE - PERSISTENT PAIN - CONTINUE WITH ORAL PAIN CONTROL, WILL NEED THERAPY AT LONG TERM VERSUS INPT REHAB. PARKINSON'S DISEASE WITH GAIT DYSFUNCTION - DISCUSSED NEED FOR CONTINUED PHYSICAL THERAPY - CONTINUE WITH SINEMET GENERALIZED WEAKNESS - PHYSICAL THERAPY. FALLING EPISODES AT HOME HYPERTENSION - CONTINUE WITH METOPROLOL GERD - CONTINUE WITH PPI DEPRESSION - CONTINUE WITH SSRI ANXIETY - PRN ANXIOLYTIC Clinical Quality Measures DVT/VTE Risk/Contraindication: Risk Factor Score Per Nursin RFS Level Per Nursing on Admit: 4+=Very High NICOLE BOLAÑOS MD Sep 19, 2017 09:07
[2017-09-19 09:20] VITALS: BP 118/72
--- NOTE | 2017-09-19 10:21 | Physical Therapy Daily Note ---
PT Daily Note-Current Subjective Patient agrees to PT. reports 10/10 right pelvic pain. Pain Numeric Pain Scale: 10-Worst Possible Pain Location: Right Location Body Site: Pelvic Pain Description: Acute Mental Status Patient Orientation: Normal For Age Attachments: Oxygen, Woody Catheter Transfers Functional [place] Measure 0=Not Assessed/NA 4=Minimal Assistance 1=Total Assistance 5=Supervision or Setup 2=Maximal Assistance 6=Modified [place] 3=Moderate Assistance 7=Complete IndependenceIRFPAI Quality Coding Scale 6 Independent with activity with or without an assistive device 5 Patient requires set up or clean up by helper. Patient completes activity by themselves 4 Supervision or touching assist (CGA). [place] provide cues , steadying assist 3 The helper provides less than half the effort to complete the activity 2 The helper provides more than half the effort to complete the activity 1 Dependent. The helper does all the effort to complete an activity 7 Patient refused to complete or attempt activity 9 The patient did not perform the activity before the current illness or injury 88 Not attempted due to Medical conditions or safety concerns Transfers (B, C, W/C) (FIM): 1 Scootin Rollin Supine to/from Sit: 1 Sit to/from Stand: 1 Bed to/from Chair: 1 Patient is dependent assist with all mobility. Transfer bed to commode to recliner dependent assist with patient posture is flexed knees and trunk in stand. Weight Bearing Right Lower Extremity: Right Weight Bearing/Tolerated Left Lower Extremity: Left Weight Bearing/Tolerated as tolerated with a walker Exercises Seated Therapy Exercises: Ankle pumps, Long arc quads Seated Reps: 20 (2 sets AAROM bilaterally) Assessment Patient is not progressing due to pain and Parkinson's. From a PT standpoint, patient would benefit from extended care facility to improve strength and mobility. PT [facility] Goals Bead Preparer Goals PT Bead Preparer Goals Time Frame: Sep 20, 2017 Transfers (B,C,W/C) (FIM): 5 Gait (FIM): 4 Gait distance (FIM): 3=150 ft Distance: 50 ft Gait Level of Assist: 4 Gait Assistive Device: FWW PT Plan Treatment/Plan Treatment Plan: Continue Plan of Care Treatment Plan: Bed Mobility, Education, Functional Activity Azucena, Functional Strength, Gait, Safety, Therapeutic Exercise, Transfers Treatment Duration: Sep 20, 2017 Frequency: 11 times per week Estimated Hrs Per Day: 1 hour per day Patient and/or Family Agrees t: Yes Time/GCodes Time In: 910 Time Out: 927 Total Billed Treatment Time: 17 Total Billed Treatment 1 visit FA 17 min REMINGTON PADGETT PT Sep 19, 2017 10:21
--- NOTE | 2017-09-19 10:31 | Occupational Ther Daily Note ---
OT Current Status-Daily Note Subjective Pt seen in room, up in bed, agreeable to OT. Pain rated 6/10 before moving her and 9/10 while sitting EOB Appearance Alert, cooperative Mental Status/Objective Functional [place] Measure 0=Not Assessed/NA 4=Minimal Assistance 1=Total Assistance 5=Supervision or Setup 2=Maximal Assistance 6=Modified [place] 3=Moderate Assistance 7=Complete [place] Other Treatment Pt needed max assist to move from supine to sit EOB. Helped just a little with pushing up with R arm. Scooted a little to be more comfortable at EOB. She was able to wash her face with R hand while sitting EOB but was breathing shallowly and appeared anxious. Supported herself in sitting EOB with hands on mattress and reluctant to turn hand loose to wash face. Pain rated 9/10. Two person assist needed to get her back into bed and to pull her up in bed. She assisted with rolling to her side to be positioned with pillows. Pt left up in bed, all needs met. Education OT Patient Education: Progress toward Goal/Update tx plan, Purpose of tx/ functional activities, Transfer techniques Teaching Recipient: Patient Teaching Methods: Discussion Response to Teaching: Verbalize Understanding, Return Demonstration, Reinforcement Needed OT Short Term Goals Short Term Goals 1=Demonstrate adherence to instructed precautions during ADL tasks. 2=Patient will verbalize/demonstrate understanding of assistive devices/ modifications for ADL. 3=Patient will improve strength/tolerance for activity to enable patient to perform ADL's. OT [facility] Goals E Commerce Merchant Goals Time Frame: Sep 30, 2017 Eating (FIM): 6 Grooming(FIM): 5 Bathing(FIM): 5 Upper Body Dressing(FIM): 5 Lower Body Dressing(FIM): 5 Toileting(FIM): 5 Toilet/Commode Transfer(FIM): 5 Shower Transfer(FIM): 5 Additional Goals: 1-Demonstrate ADL Tasks, 2-Verbalize Understanding, 3- ImproveStrength/Azucena 1=Demonstrate adherence to instructed precautions during ADL tasks. 2=Patient will verbalize/demonstrate understanding of assistive devices/ modifications for ADL. 3=Patient will improve strength/tolerance for activity to enable patient to perform ADL's. OT Education/Plan Problem List/Assessment Pt would benefit from skilled OT to increase her independence in basic self care to allow her to safely return home Discharge Recommendations Plan/Recommendations: Continue POC Treatment Plan/Plan of Care Patient would benefit from OT for education, treatment and training to promote independence in ADL's, mobility, safety and/or upper extremity function for ADL' s. Plan of Care: ADL Retraining, Functional Mobility, UE Funct Exercise/Act, UE Neuromus Re-Ed/Coord Treatment Duration: Sep 30, 2017 Frequency: 5 times per week Estimated Hrs Per Day: .5 hour per day Agreement: Yes Rehab Potential: Good Time/GCodes Start Time: 08:38 Stop Time: 08:58 Total Time Billed (hr/min): 20 Billed Treatment Time visit, 20 minutes functional activity JANELLE JOYNER OT Sep 19, 2017 10:30
[2017-09-19] MEDS: HYDROcodone/APAP 5 MG/325 MG (LORTAB) TAB PO SCH ×3 (10:34→21:40)
--- NOTE | 2017-09-19 10:54 | Physical Therapy Daily Note ---
PT Daily Note-Current Subjective Patient agrees to PT. Pain Numeric Pain Scale: 10-Worst Possible Pain Location: Right Location Body Site: Pelvic Pain Description: Sharp Mental Status Patient Orientation: Normal For Age Attachments: Oxygen, IV Transfers Functional [place] Measure 0=Not Assessed/NA 4=Minimal Assistance 1=Total Assistance 5=Supervision or Setup 2=Maximal Assistance 6=Modified [place] 3=Moderate Assistance 7=Complete IndependenceIRFPAI Quality Coding Scale 6 Independent with activity with or without an assistive device 5 Patient requires set up or clean up by helper. Patient completes activity by themselves 4 Supervision or touching assist (CGA). [place] provide cues , steadying assist 3 The helper provides less than half the effort to complete the activity 2 The helper provides more than half the effort to complete the activity 1 Dependent. The helper does all the effort to complete an activity 7 Patient refused to complete or attempt activity 9 The patient did not perform the activity before the current illness or injury 88 Not attempted due to Medical conditions or safety concerns Transfers (B, C, W/C) (FIM): 1 Scootin Rollin Supine to/from Sit: 1 Sit to/from Stand: 1 Bed to/from Chair: 1 Patient repositioned to sidelying left with pillow placement Weight Bearing Right Lower Extremity: Right Weight Bearing/Tolerated Left Lower Extremity: Left Weight Bearing/Tolerated as tolerated with a walker Assessment Patient tolerates minimal activity due to pain. PT Retirement Goals Retirement Goals PT Body Presser Goals Time Frame: Sep 20, 2017 Transfers (B,C,W/C) (FIM): 5 Gait (FIM): 4 Gait distance (FIM): 3=150 ft Distance: 50 ft Gait Level of Assist: 4 Gait Assistive Device: FWW PT Plan Treatment/Plan Treatment Plan: Continue Plan of Care Treatment Plan: Bed Mobility, Education, Functional Activity Azucena, Functional Strength, Gait, Safety, Therapeutic Exercise, Transfers Treatment Duration: Sep 20, 2017 Frequency: 11 times per week Estimated Hrs Per Day: 1 hour per day Patient and/or Family Agrees t: Yes Time/GCodes Time In: 1035 Time Out: 1045 Total Billed Treatment Time: 10 Total Billed Treatment 1 visit FA 10 min REMINGTON PADGETT PT Sep 19, 2017 10:54
[2017-09-19 16:00] VITALS: BP 108/56
[2017-09-19] MEDS: SERTRALINE 50 MG (ZOLOFT) TABLET PO SCH (21:39)
[2017-09-19] MEDS ORDERED: BETHANECHOL 25 MG (URECHOLINE) TAB PO ONE (22:45)
[2017-09-19] MEDS ORDERED: BETHANECHOL 25 MG (URECHOLINE) TAB ONE (22:46)
[2017-09-20] MEDS: HYDROcodone/APAP 5 MG/325 MG (LORTAB) TAB PO PRN ×2 (00:30→12:04)
[2017-09-20] MEDS: OMEGA 3 (FISH OIL) 1000 MG CAP PO SCH (06:16)
[2017-09-20] MEDS: MULTIVIT W/MINERALS TAB (THERAGRAN M) PO SCH (06:16)
[2017-09-20] MEDS: PANTOPRAZOLE 20 MG TABLET (PROTONIX) PO SCH (06:16)
[2017-09-20] MEDS: CALCIUM CARB + VIT D 600 MG (CALCARB + D) TAB PO SCH (06:16)
[2017-09-20] MEDS: CALCITONIN NASAL 200 INTLU/AC (FORTICAL) 3.7 ML BTL SCH (08:08)
[2017-09-20] MEDS: HYDROcodone/APAP 5 MG/325 MG (LORTAB) TAB PO SCH ×2 (08:09→12:04)
[2017-09-20] MEDS: SINEMET 25/100 (CARBIDOPA/LEVODOPA) TAB PO SCH ×2 (08:09→12:03)
[2017-09-20] MEDS: meTOprolol TARTRATE 25 MG (LOPRESSOR) TABLET PO SCH (08:09)
[2017-09-20] MEDS: ALPRAZolam 0.25 MG (XANAX) TAB PO SCH (08:09)
[2017-09-20] MEDS: VITAMIN D3 400 UNITS (CHOLECALCIFEROL) TABLET PO SCH (08:09)
[2017-09-20] MEDS: DOCUSATE SODIUM 100 MG (COLACE) CAP PO SCH (08:10)
[2017-09-20] MEDS: RASAGILINE 1 MG TAB PO SCH (08:10)
[2017-09-20] MEDS: SPIRONOLACTONE 25 MG (ALDACTONE) TAB PO SCH (08:10)
[2017-09-20] MEDS ORDERED: ACHD5005 PO (08:52)
[2017-09-20] MEDS ORDERED: ALPR0.25 PO (08:52)
[2017-09-20] MEDS ORDERED: Calcitonin (08:52)
[2017-09-20] MEDS ORDERED: DOCU100C37 PO (08:52)
--- NOTE | 2017-09-20 08:54 | Discharge Inst-Skilled Nursing ---
Discharge Inst-Skilled NF Patient Instructions Patient Problems: pubic rami fracture parkinson's disease hypertension generalized weakness unstable gait unsteady on feet dyspena on exertion chronic oxygen dependence Goal: goal is to go to inpatient rehab in 1-2 weeks after prison care then pt is to go home with spouse and support at home with home health Consult/Follow Up/Orders Follow Up Appt.: 1 wk with [facility] Skilled NF Admit to: Via [facility] Emergency Department Certification ([facility]) I certify that SNF services are required to be given on an inpatient basis because of the above named patient's need for alf care on a continuing basis for the conditions(s) for which he/she was receiving inpatient hospital services prior to his/her transfer to the SNF. Long-Term Facility Order: Nursing Services, Foundation Drill Operator Helper-Evaluate & Treat, Physical Therapy-Evaluate & Treat Discharge Diet: Regular Diet Daily Activity as Tolerated: Yes New & Resume Previous Orders Nicole Bonds Sep 20, 2017 08:52 Pneu Vac Indicated: Yes Medication List: Active Scripts Active [Calcitonin] 3.7 ML Soln 0 Ml NA DAILY pt to use one spray per one nostril alternate nostrils daily. use medication 2 weeks then stop Docusate Sodium 100 Mg Capsule 100 Mg PO BID Hydrocodone/Acetaminophen 5/325mg Tablet (Acetaminophen/Hydrocodone Bitart) 1 Tab Tab 0.5 Tab PO TID 1/2 tab tid and 1 tab po q 4 hours prn uncontrolled pelvic fx pain Xanax (Alprazolam) 0.25 Mg Tablet 0.5 Tab PO BID Reported Furosemide 20 Mg Tablet 20 Mg PO UD PRN TAKE THREE TIMES A WEEK NEEDED FOR WEIGHT GAIN GREATER THAN 2.5-3 POUNDS Potassium Chloride 20 Meq Tab.er.prt 20 Meq PO DAILY PRN Xanax (Alprazolam) 0.25 Mg Tablet 0.5-1 Tab PO BID PRN Metoprolol Tartrate 25 Mg Tablet 12.5 Mg PO BID TAKES 1/2 (25MG) TABLET Spironolactone 25 Mg Tablet 25 Mg PO DAILY Rasagiline Mesylate 1 Mg Tablet 1 Mg PO DAILY Omeprazole 20 Mg Capsule. 20 Mg PO BID Aspirin EC (Aspirin) 81 Mg Tablet.dr 81 Mg PO WE TAKES AT NOON Tuttle-3 (Tuttle-3 Fatty Acids) 1,000 Mg Capsule 1,000 Mg PO DAILY Super B Complex (Vitamin B Complex & Vit C No.4) 150 Mg Tablet 150 Mg PO DAILY Vitamin D3 (Cholecalciferol (Vitamin D3)) 400 Unit Tablet 400 Unit PO DAILY Calcium 500 + Vit D Caplet (Calcium Carbonate/Vitamin D3) 1 Each Tablet 1 Tab PO DAILY Daily Multiple Vitamin (Multivitamin) 1 Each Tablet 1 Tab PO DAILY Nitrostat (Nitroglycerin) 0.4 Mg Tab.subl 0.4 Mg SL UD PRN Sertraline HCl 50 Mg Tablet 50 Mg PO HS Carbidopa-Levodopa 25-100 Tab (Carbidopa/Levodopa) 1 Each Tablet 3 Tab PO 1200 Carbidopa-Levodopa 25-100 Tab (Carbidopa/Levodopa) 1 Each Tablet 2 Tab PO BID My orders: Orders - NICOLE BONDS MD Hydrocodone/Apap 5/325 Tablet (Lortab 5 (09/19/17 09:15) Engineer/Conductor Consult (09/19/17 09:05) Catheter(Urinary) Discontinue (09/19/17 09:05) Patient Visit (09/19/17 ) Functional Activities, Ea 15 (09/19/17 ) Bethanechol Tablet (Urecholine Tablet) (09/19/17 22:45) Bethanechol Tablet (Urecholine Tablet) (09/20/17 09:00) Straight Cath (Urinary) (09/19/17 22:41) Bladder Scan-Straight Cath-Pos (09/19/17 22:41) Bethanechol Tablet (Urecholine Tablet) (09/19/17 22:46) Attending Discharge Inpt/Inobs (09/20/17 08:46) NICOLE BONDS MD Sep 20, 2017 08:54
--- NOTE | 2017-09-20 08:55 | Discharge Summary ---
Diagnosis/Chief Complaint Date of Admission Sep 13, 2017 at 19:36 Date of Discharge Discharge Date: Sep 20, 2017 Discharge Time: 1030 Admission Diagnosis Admission Diagnosis ACUTE PUBIC RAMI FRACTURE PARKINSON'S DISEASE WITH GAIT DYSFUNCTION GENERALIZED WEAKNESS FALLING EPISODES AT HOME HYPERTENSION GERD DEPRESSION ANXIETY Discharge Diagnosis ACUTE PUBIC RAMI FRACTURE PARKINSON'S DISEASE WITH GAIT DYSFUNCTION GENERALIZED WEAKNESS FALLING EPISODES AT HOME HYPERTENSION GERD DEPRESSION ANXIETY Reason Hospital Visit This is an 82-year-old white female known to me from prior hospital stays more specifically in inpatient rehabilitation covering for Dr. Bonds who has a past medical history of severe Parkinson's and has had multiple falls in the past and sustained a fall yesterday found to have pubic rami fracture of the superior region and orthopedic surgery was consulted and found the patient to not be a surgical candidate and is currently managing the pain and has been up in the chair already today. Woody catheter remains. We did talk about inpatient rehabilitation on second floor of which she is been there before and that sounded good to her if that is something that she meets criteria for. I reconciled and restarted all of her home medications including her Parkinson's medications. She did have a bowel movement and she is on Colace. Discharge Summary Discharge Physical Examination Allergies: Coded Allergies: Penicillins (Verified Allergy, Mild, 08/05/13) Vitals & I&Os General Appearance: Alert, Oriented X3, Cooperative HEENT: Atraumatic, PERRLA Respiratory: Clear to Auscultation Cardiovascular: Regular Rate Abdominal: Normal Bowel Sounds, Soft, No Tenderness Extremities: No Clubbing, No Cyanosis Skin: No Rashes, No Breakdown Psych/Mental Status: Mental Status NL, Mood NL Hospital Course ACUTE PUBIC RAMI FRACTURE PARKINSON'S DISEASE WITH GAIT DYSFUNCTION GENERALIZED WEAKNESS FALLING EPISODES AT HOME HYPERTENSION GERD DEPRESSION ANXIETY ACUTE PUBIC RAMI FRACTURE - PERSISTENT PAIN - CONTINUE WITH ORAL PAIN CONTROL, WILL NEED THERAPY AT PRISON. PARKINSON'S DISEASE WITH GAIT DYSFUNCTION - DISCUSSED NEED FOR CONTINUED PHYSICAL THERAPY - CONTINUE WITH SINEMET GENERALIZED WEAKNESS - PHYSICAL THERAPY. FALLING EPISODES AT HOME HYPERTENSION - CONTINUE WITH METOPROLOL GERD - CONTINUE WITH PPI DEPRESSION - CONTINUE WITH SSRI ANXIETY - PRN ANXIOLYTIC DISCUSSED WITH THE PT AND HER DTR - WE WILL HAVE HER GO TO [facility] FOR REHAB - ANTICIPATE RE-EVALUATION IN 1 TO 2 WEEKS FOR POSSIBLE RETURN TO [facility] INPATIENT REHAB FOR MORE AGGRESSIVE REHAB PRIOR TO RETURN TO HOME WITH HOME HEALTH. Discharge Condition at discharge STABLE Instructions to patient/family Please see electronic discharge instructions given to patient. Discharge Medications Reviewed and agree with Discharge Medication list on patient's Discharge Instruction sheet Clinical Quality Measures DVT/VTE Risk/Contraindication: Risk Factor Score Per Nursin RFS Level Per Nursing on Admit: 4+=Very High NICOLE BONDS MD Sep 20, 2017 08:55
[2017-09-20] MEDS ORDERED: BETHANECHOL 25 MG (URECHOLINE) TAB PO SCH (09:00)
== END 2017-09-20 13:05 | DRG 536 ==
LOC: EDUNIT# 17:42 → ER 17:43 → 4TH 19:36
PROVIDERS: ADMIT Family Medicine; ATTEND Family Medicine
DX: S32.511A Fracture of superior rim of right pubis, initial encounter for closed fracture (principal); S32.19XA Other fracture of sacrum, initial encounter for closed fracture; S41.111A Laceration without foreign body of right upper arm, initial encounter; G20 Parkinson's disease; J44.9 Chronic obstructive pulmonary disease, unspecified; I10 Essential (primary) hypertension; E78.00 Pure hypercholesterolemia, unspecified; R39.15 Urgency of urination; K21.9 Gastro-esophageal reflux disease without esophagitis; Z85.3 Personal history of malignant neoplasm of breast; Z85.038 Personal history of other malignant neoplasm of large intestine; W19.XXXA Unspecified fall, initial encounter; Y92.008 Other place in unspecified non-institutional (private) residence as the place of occurrence of the external cause; Y93.E2 Activity, laundry
CPT/HCPCS: 36415; 51702; 70450; 71045; 72125; 72192; 80053; 81000; 85025; 85610; 85730; 94760; 96374

== ENCOUNTER 2017-09-23 01:16 | Emergency (ER) | payer MEDICARE, OTHER ==
[~2017-09-23] VITALS: Ht 175.3 cm; Wt 61.7 kg
[~2017-09-23 01:16] MED LIST changes: +Calcitonin; +DOCU100C37 PO
--- OUTSIDE RECORDS SUMMARY | 2017-09-23 01:22 | XMS REPORT | Encounter Summary ---
Author Author [facility] Organization [facility] Address Unknown Phone Unavailable Care Team Providers Care Railroad Signal Technician Name Role Phone Suzanne Mcadams MD Unavailable Tiago RodriguesW Unavailable Rah Cruz MD Unavailable Jazz Bonds MD PCP Reason for Referral * Consult, Test & Treat Status Reason Specialty Diagnoses / Referred By Referred To Procedures Contact Contact Closed Specialty Diagnoses Rah Cruz, Services Primary MD Required Parkinsonism [address] [place] [address] Reason for Visit * Reason Comments Parkinsonism w/ daughter Encounter Details Date Type Department Care Team Description 09/05/2017 Office Visit [facility] Rah Cruz MD Primary Parkinsonism Physicians-Neurology [address] (Primary Dx); [facility] [address] Cognitive changes; [address] [place] [address] Other depression; [place], [place] [phone] RLS (restless legs [id number] syndrome); [phone] Other insomnia Social History Tobacco Use Types [...] patients can have urinary retention. Please call [phone] if you have any questions or side effects. Please contact me through your smart phone with [employer] erica or go on line at [employer] You will need to register. in this [...] public places?: Always Had difficulty dressing?: Occasionally [place] depressed?: Never Had problems with your close personal relationships?: Occasionally Had problems with your concentration, for example, when reading or watching TV? : Occasionally [place] unable to communicate effectively?: Occasionally Had painful muscle cramps or spasms?: Often [place] embarrassed in public due to having Parkinson's [...]
--- OUTSIDE RECORDS SUMMARY | 2017-09-23 01:22 | XMS REPORT | Encounter Summary ---
Author Author [facility] Organization [facility] Address Unknown Phone Unavailable Care Team Providers Care Management Retail Intern Name Role Phone Suzanne Mcadams MD Unavailable Tiago RodriguesW Unavailable Rah Cruz MD Unavailable Jazz Bonds MD PCP Reason for Visit * Reason Comments Prior Authorization Encounter Details Date Type Department Care Team Description 09/16/2017 Telephone [facility] Rah Cruz MD Prior Authorization Physicians-Neurology [address] [facility] [address] [place] [address] [place], [place] [phone] [id number] [phone] Social History Tobacco Use Types Packs/Day Years [...] encounter Miscellaneous Notes * Telephone Encounter - Brian Rendon - 09/16/2017 9:00 AM CDT Initiated PA through Cover My Meds. PA is unable to be completed via Cover My Meds. Call to Complete PA. PT ID: [id number] Spoke with Chip, the medication requires step therapy prior authorization. Transferred to Cindy, Pharmacist, for the completion of the Prior authorization. Formulary alternatives are: [place] Myrbetriq. Explained that the provider prefers [employer]. Prior Auth is approved until 09/17/2018. Case# [id number] Called [facility] to inform them of the outcome. They were able to run the claim. They will call the pt. in this encounter Plan of Treatment Not on fileas of this encounter Visit Diagnoses Not on filein this encounter
--- OUTSIDE RECORDS SUMMARY | 2017-09-23 01:22 | XMS REPORT | Encounter Summary ---
Author Author [facility] Organization [facility] Address Unknown Phone Unavailable Care Team Providers Care Registration Specialist Name Role Phone Suzanne Mcadams MD Unavailable Tiago RodriguesW Unavailable Rah Cruz MD Unavailable Jazz Bonds MD PCP Reason for Visit * Reason Comments Medication Refill Encounter Details Date Type Department Care Team Description 07/13/2017 Refill [facility] Rah Cruz MD Physicians-Neurology [address] [place] [address] [place], [place] [phone] Social History Tobacco Use Types Packs/Day Years [...] Judge LPN - 07/13/2017 8:06 AM CDT [facility] pharmacy requesting rx refill. Telephone order received by Dr. Rah Cruz MD carbidopa/levodopa (SINEMET) 25/100 mg tablet Si tab, 3 tabs, 2 tabs. #630 x 3 refills in this encounter Plan of Treatment Not on fileas of this encounter Visit Diagnoses Not on filein this encounter
--- OUTSIDE RECORDS SUMMARY | 2017-09-23 01:22 | XMS REPORT | Clinical Summary ---
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 If you do not see the information that you expected, contact Release of Information in the Health Information Management department at [phone] for further assistance in locating additional records.[facility] Allergies Active Allergy Reactions Severity Noted Date [...] Encounters Date Type Specialty Care Team Description 09/16/2017 Telephone Neurology Rah Cruz MD Prior Authorization 09/05/2017 Office Visit Neurology Rah Cruz MD [...]
--- OUTSIDE RECORDS SUMMARY | 2017-09-23 01:25 | XMS REPORT | CCD ---
Author Author Josefa Gardner MD, [facility] Address [address] [place] [address] Phone Care Team Providers Care Adjuster Electrical Contacts Name Role Phone PP Unavailable CCM Unavailable Summary Purpose Interface Exchange Insurance Providers Payer name Policy type / Coverage type Covered alliance party ID Effective Begin Date Effective End Date WPS Medicare Part B Medicare Part B [id number] Unknown Unknown [employer] Medicare Part B [id number] Unknown Unknown Family history Mother Diagnosis Age At Onset Cancer Unknown Hypertension Unknown Heart Attack Unknown Hyperlipidemia Unknown Father Diagnosis Age At Onset Stroke Unknown Social History Social History Element Codes Description Effective Dates Marital status Unknown Bo 04/13/2016 Number of children Unknown 5 08/20/2014 Employment Unknown Retired 08/20/[address]: 484370621 Never smoker 08/20/[address]: 822311190 Never drinks alcohol 08/20/2014 Allergies, Adverse Reactions, [...] Start Date Stop Date Status Fill Instructions Xanax 0.25 mg tablet RxNorm: 941090 1/2-1 Tablet(s) PO TID as needed 04/26/2017 07/24/2017 Active metoprolol tartrate 25 mg tablet RxNorm: 396078 1/2 Tablet(s) PO BID 03/24/2017 10/19/2017 Active lisinopril 5 mg tablet RxNorm: 175355 1 Tablet(s) PO daily 10/28/2017 Active sertraline 50 mg tablet RxNorm: 017495 1 Tablet(s) PO daily 04/201612/07/2017 Active potassium chloride ER 20 mEq tablet,extended release RxNorm: 762095 1 Tablet(s) PO daily with lasix as needed 10/26/2016 01/31/2017 Inactive Lasix 20 mg tablet RxNorm: 320574 1 Tablet(s) PO three times a week and QDAY PRN weight gain greater than 2.5-3 lbs 10/14/2016 12/12/2016 Inactive Prilosec 20 mg capsule,delayed release RxNorm: 919731 1 Capsule(s) PO daily 10/14/2016 No Stop Date Active potassium chloride ER 20 mEq tablet,extended release RxNorm: 704217 1 Tablet(s) PO TIW 10/14/2016 10/25/2016 Inactive Xanax 0.25 mg tablet RxNorm: 993069 1/2 Tablet(s) PO TID as needed 09/20/2016 03/17/2017 Inactive cefdinir 300 mg capsule RxNorm: 067898 1 Capsule(s) PO BID 09/18/2016 Inactive Xanax 0.25 mg tablet RxNorm: 538027 1/2 Tablet(s) PO BID as needed 07/07/2016 01/01/2017 Inactive Xanax 0.25 mg tablet RxNorm: 296724 1/2 Tablet(s) PO BID as needed 07/07/2016 09/19/2016 Inactive aspirin 81 mg capsule,delayed release RxNorm: 744337 1 Capsule(s) PO TIW 04/13/2016 No Stop Date Active Zoloft 100 mg tablet RxNorm: 304570 1/2 Tablet(s) PO daily 08/28/2016 Inactive Lasix 20 mg tablet RxNorm: 361940 1 Tablet(s) PO three times a week and daily as needed weight gain greater than 2.5-3 lbs 03/30/2016 05/28/2016 Inactive metoprolol tartrate 25 mg tablet RxNorm: 958318 1/2 Tablet(s) PO BID 03/30/2016 10/25/2016 Inactive Zoloft 100 mg tablet RxNorm: 936595 1 Tablet(s) PO daily 201604/12/2016 Inactive Xanax 0.25 mg tablet RxNorm: 928899 1/2 Tablet(s) PO BID as needed 03/23/2016 06/20/2016 Inactive potassium chloride ER 20 mEq tablet,extended release RxNorm: 653143 1 Tablet(s) PO daily as needed with lasix 03/22/2016 03/21/2016 Inactive potassium chloride ER 20 mEq tablet,extended release RxNorm: 626389 1 Tablet(s) PO daily as needed with lasix 03/22/2016 05/20/2016 Inactive Lasix 20 mg tablet RxNorm: 002600 1 Tablet(s) PO daily as needed weight gain greater than 2.5-3 lbs 03/22/20162016 Inactive Lasix 20 mg tablet RxNorm: 294025 1 Tablet(s) PO daily as needed weight gain greater than 2.5-3 lbs 03/22/20162016 Inactive Mirapex 0.25 mg tablet RxNorm: 693409 1/2 Tablet(s) PO BID 10/2016 No Stop Date Active aspirin 81 mg capsule,delayed release RxNorm: 759631 1 Capsule(s) PO QW 01/13/2016 04/12/2016 Inactive Azilect 1 mg tablet RxNorm: 166534 1 Tablet(s) PO QAM , 1/2 Tab PO QPM 10/13/2015 No Stop Date Active Sinemet 25 mg-100 mg tablet RxNorm: 232273 2 Tablet(s) PO UD 2 Tabs QAM, 3 Tabs at noon, 2 Tabs QPM=7 tablets total daily 10/13/2015 No Stop Date Active albuterol sulfate 2.5 mg/3 mL (0.083 %) solution for nebulization RxNorm: 781313 3 Milliliter(s) INH TID x 1 week , then three times daily as needed for shortness of breath 01/21/2015 10/12/2015 Inactive R 06.02 albuterol sulfate 2.5 mg/3 mL (0.083 %) solution for nebulization RxNorm: 113099 3 Milliliter(s) INH TID x 1 week , then three times daily as needed for shortness of breath 01/14/2015 01/20/2015 Inactive Sinemet 25 mg-100 mg tablet RxNorm: 588640 2 Tablet(s) PO QID 8 tablets total daily 09/12/2014 10/12/2015 Inactive mupirocin 2 % topical ointment RxNorm: 258037 1 Application TOP BID 09/12/2014 09/25/2014 Inactive Vitamin D2 50,000 unit capsule RxNorm: 793644 1 Capsule(s) PO QW 08/23/2014 08/22/2014 Inactive Vitamin D2 50,000 unit capsule RxNorm: 861515 1 Capsule(s) PO QW 08/23/2014 05/18/2015 Inactive Breo Ellipta 100 mcg-25 mcg/dose powder for inhalation RxNorm: 0654579 1 inhale INH daily 08/22/2014 05/18/2015 Inactive Azilect 1 mg tablet RxNorm: 781256 1/2 Tablet(s) PO BID 201410/12/2015 Inactive Sinemet 25 mg-100 mg tablet RxNorm: 583820 2 Tablet(s) PO TID 6 tablets total daily 08/20/2014 09/11/2014 Inactive Super B Complex oral RxNorm: 73818 oral No Start Date Active Calcium 500 oral RxNorm: 1897 oral No Start Date Active Vitamin D3 oral RxNorm : 2418 oral No Start Date Active Azilect 1 mg tablet RxNorm: 000595 1 Tablet(s) PO daily No Start Date Active Mirapex 0.25 mg tablet RxNorm: 498717 1/2 Tablet(s) PO QHS as needed No Start Date Active spironolactone 25 mg tablet RxNorm: 619022 1 Tablet(s) PO daily No Start Date Active aspirin 81 mg capsule,delayed release RxNorm: 198203 1 Capsule(s) PO BIW No Start Date 01/12/2016 Inactive famotidine 20 mg tablet RxNorm: 494151 1 Tablet(s) PO BID No Start Date 05/18/2015 Inactive sertraline 100 mg tablet RxNorm: 435745 1 Tablet(s) PO daily No Start Date 03/09/2016 Inactive Ventolin HFA 90 mcg/actuation aerosol inhaler RxNorm: 0786890 1 INH QID as needed No Start Date 05/18/2015 Inactive oxybutynin chloride 5 mg tablet RxNorm: 072379 Tablet(s) PO as needed No Start Date 10/12/2015 Inactive Sinemet 25 mg-100 mg tablet RxNorm: 249690 Tablet(s) PO 6 tablets total daily No Start Date 08/19/2014 Inactive sucralfate 1 gram tablet RxNorm: 780505 1 Tablet(s) PO AC and hs No Start Date 05/18/2015 Inactive aspirin 81 mg tablet RxNorm: 702246 1 Tablet(s) PO weekly No Start Date 05/18/2015 Inactive sertraline 50 mg tablet RxNorm: 296090 1 Tablet(s) PO daily No Start Date 03/21/2016 Inactive omeprazole 20 mg capsule,delayed release RxNorm: 653987 1 Capsule(s) PO BID No Start Date 05/18/2015 Inactive Prilosec 20 mg capsule,delayed release RxNorm: 588803 1 Capsule(s) PO as needed No Start Date 10/13/2016 Inactive lisinopril 5 mg tablet RxNorm: 126050 1 Tablet(s) PO daily No Start Date 01/31/2017 Inactive Azilect 1 mg tablet RxNorm: 106542 1 Tablet(s) PO daily No Start Date 08/19/2014 Inactive Medication Administered No Medication Administered data Immunizations Vaccine Codes Date Status Influenza CVX: 141 12/13/2016 completed Zoster CVX: 121 12/24/2015 completed Assessments Condition Codes Effective Dates Vitamin D deficiency, unspecified ICD-10: E55.9 ICD-9: 268.9 04/14/2017 Muscle weakness (generalized) ICD-10: M62.81 ICD-9: 728.87 04/14/2017 Essential (primary) hypertension ICD-10: I10 ICD-9: 401.1 04/14/2017 Parkinson's disease ICD-10: G20 ICD-9: 332.0 04/14/2017 Shortness of breath ICD-10: R06.02 ICD-9: 786.05 04/14/2017 Localized enlarged lymph nodes ICD-10: R59.0 [...] right shoulder ICD-10: M25.511 ICD-9: 719.41 08/04/2015 Parkinsons disease ICD-9: 332.0 2014 COPD (chronic obstructive pulmonary disease) ICD-9: 496 10/15/2014 SHORTNESS OF BREATH ICD-9: 786.05 2014 Lesion of ear ICD-9: 380.89 09/12/2014 [...] Observation Code Item Item Code Result Date Comp Metabolic Zdr609 NA 141 mEq/L 04/14/2017 Comp Metabolic Zah787 K 4.6 mEq/L 04/14/2017 Comp Metabolic Ebb643 CL 104 mEq/L 04/14/2017 Comp Metabolic Nld577 CO2 31.0 mEq/L 04/14/2017 Comp Metabolic Lek177 ANION GAP 11 04/14/2017 Comp Metabolic Tax543 GLUCOSE 99 mg/dL 04/14/2017 Comp Metabolic Mjf814 Creat 0.8 mg/dL 04/14/2017 Comp Metabolic Noq501 eGFR 73 ml/min/1.73m2 04/14/2017 Comp Metabolic Qdl193 BUN 23 mg/dL 04/14/2017 Comp Metabolic Osn073 B/C Ratio 28.8 Ratio 04/14/2017 Comp Metabolic Bco399 CALCIUM 9.4 mg/dL 04/14/2017 Comp Metabolic Dsa306 ALK PHOS 58 U/L 04/14/2017 Comp Metabolic Xpo156 AST(SGOT) 22 U/L 04/14/2017 Comp Metabolic Irp747 ALT(SGPT) 6 U/L 04/14/2017 Comp Metabolic Pym121 BILI T 0.4 mg/dL 04/14/2017 Comp Metabolic Zbc082 ALBUMIN 4.2 g/dL 04/14/2017 Comp Metabolic Sxw931 TPRO 6.5 g/dL 04/14/2017 Comp Metabolic Rut662 GLOB 2.3 g/dL 04/14/2017 Comp Metabolic Ugf932 A/G Ratio 1.8 Ratio 04/14/2017 Comp Metabolic Klk381 Osmo 285 mOsmo 04/14/2017 Tsh Ord6 TSH (3rd IS) 0.70 uIU/mL 04/14/2017 Vitamin D 25 Oh Uhs9836 VITAMIN D, 25 HYDROXY 44.56 ng/mL Cbc With Differential Ord2 WBC 5.35 K/ul 04/14/2017 Cbc With Differential Ord2 RBC 4.22 M/ul 04/14/2017 Cbc With Differential Ord2 HGB 13.1 g/dl 04/14/2017 Cbc With Differential Ord2 HCT 41.8 % 04/14/2017 Cbc With Differential Ord2 Neut% 66.1 % 04/14/2017 Cbc With Differential Ord2 MCV 99.1 fl 04/14/2017 Cbc With Differential Ord2 Lymph% 19.8 % 04/14/2017 Cbc With Differential Ord2 Story% 11.6 % 04/14/2017 Cbc With Differential Ord2 [...] 1.06 K/ul 04/14/2017 Cbc With Differential Ord2 Story ABS# 0.6 K/ul 04/14/2017 Cbc With Differential Ord2 Eos ABS# 0.1 K/ul 04/14/2017 Cbc With Differential Ord2 Baso ABS# 0.0 K/ul 04/14/2017 B Type Natriuretic Peptide Uoy0221 B-CHEF CONCIERGE 130.00 pg/ml 2016 Comp Metabolic Egn764 NA 140 mEq/L 11/16/2016 Comp Metabolic Zok018 K 4.4 mEq/L 11/16/2016 Comp Metabolic Klj748 CL 102 mEq/L 11/16/2016 Comp Metabolic Qay925 CO2 30.0 mEq/L 11/16/2016 Comp Metabolic Fky671 ANION GAP 12 11/16/2016 Comp Metabolic Odb315 GLUCOSE 157 mg/dL 11/16/2016 Comp Metabolic Tln807 Creat 0.8 mg/dL 11/16/2016 Comp Metabolic Kfr205 eGFR 75 ml/min/1.73m2 11/16/2016 Comp Metabolic Yhz346 BUN 26 mg/dL 11/16/2016 Comp Metabolic Dsb039 B/C Ratio 33.3 Ratio 11/16/2016 Comp Metabolic Yyh548 CALCIUM 9.5 mg/dL 11/16/2016 Comp Metabolic Qrn975 ALK PHOS 54 U/L 11/16/2016 Comp Metabolic Ckw739 AST(SGOT) 25 U/L 11/16/2016 Comp Metabolic Ayu574 ALT(SGPT) 7 U/L 11/16/2016 Comp Metabolic Osz940 BILI T 0.4 mg/dL 11/16/2016 Comp Metabolic Vsa883 ALBUMIN 4.0 g/dL 11/16/2016 Comp Metabolic Svz373 TPRO 6.3 g/dL 11/16/2016 Comp Metabolic Bmv839 GLOB 2.3 g/dL 11/16/2016 Comp Metabolic Pnx667 A/G Ratio 1.8 Ratio 11/16/2016 Comp Metabolic Mhs701 Osmo 287 mOsmo 11/16/2016 Cbc With Differential Ord2 WBC 5.07 K/ul 11/16/2016 Cbc With Differential Ord2 RBC 4.09 M/ul 11/16/2016 Cbc With Differential Ord2 HGB 12.4 g/dl 11/16/2016 Cbc With Differential Ord2 HCT 39.7 % 11/16/2016 Cbc With Differential Ord2 Neut% 65.8 % 11/16/2016 Cbc With Differential Ord2 Lymph% 18.9 % 11/16/2016 Cbc With Differential Ord2 MCV 97.1 fl 11/16/2016 Cbc With Differential Ord2 MCH 30.3 pg 11/16/2016 Cbc With Differential Ord2 Story% 11.4 % 11/16/2016 Cbc With Differential Ord2 MCHC 31.2 pg 11/16/2016 Cbc With Differential Ord2 Eos% 3.7 % 11/16/2016 Cbc With Differential Ord2 PLT 140 K/ul 11/16/2016 Cbc With Differential Ord2 Baso% 0.2 % 11/16/2016 Cbc With Differential Ord2 RDW 13.2 % 11/16/2016 Cbc With Differential Ord2 Neut ABS# 3.33 K/ul 11/16/2016 Cbc With Differential Ord2 Lymph ABS# 0.96 K/ul 11/16/2016 Cbc With Differential Ord2 Story ABS# 0.6 K/ul 11/16/2016 Cbc With Differential Ord2 Eos ABS# 0.2 K/ul 11/16/2016 Cbc With Differential Ord2 Baso ABS# 0.0 K/ul 11/16/2016 Comp Metabolic Awz570 NA 139 mEq/L 09/16/2016 Comp Metabolic Frf846 K 4.9 mEq/L 09/16/2016 Comp Metabolic Skp721 CL 100 mEq/L 09/16/2016 Comp Metabolic Opy472 CO2 31.0 mEq/L 09/16/2016 Comp Metabolic Abh789 ANION GAP 13 09/16/2016 Comp Metabolic Rdj689 GLUCOSE 142 mg/dL 09/16/2016 Comp Metabolic Ylh379 Creat 1.0 mg/dL 09/16/2016 Comp Metabolic Yqw457 eGFR 57 ml/min/1.73m2 09/16/2016 Comp Metabolic Deb708 BUN 29 mg/dL 09/16/2016 Comp Metabolic Vwt830 B/C Ratio 29.3 Ratio 09/16/2016 Comp Metabolic Sdd498 CALCIUM 9.7 mg/dL 09/16/2016 Comp Metabolic Cng143 ALK PHOS 60 U/L 09/16/2016 Comp Metabolic Jck944 AST(SGOT) 27 U/L 09/16/2016 Comp Metabolic Vwd639 ALT(SGPT) 14 U/L 09/16/2016 Comp Metabolic Rlc977 BILI T 0.3 mg/dL 09/16/2016 Comp Metabolic Ypx416 ALBUMIN 4.1 g/dL 09/16/2016 Comp Metabolic Oca872 TPRO 6.6 g/dL 09/16/2016 Comp Metabolic Elk393 GLOB 2.6 g/dL 09/16/2016 Comp Metabolic Kad705 A/G Ratio 1.6 Ratio 09/16/2016 Comp Metabolic Yyc421 Osmo 286 mOsmo 09/16/2016 Comp Metabolic Vbv242 NA 139 mEq/L 09/06/2016 Comp Metabolic Fwi334 K 4.5 mEq/L 09/06/2016 Comp Metabolic Dnm751 CL 100 mEq/L 09/06/2016 Comp Metabolic Jet250 CO2 32.0 mEq/L 09/06/2016 Comp Metabolic Zxq214 ANION GAP 12 09/06/2016 Comp Metabolic Uuo403 GLUCOSE 92 mg/dL 09/06/2016 Comp Metabolic Slh229 Creat 0.8 mg/dL 09/06/2016 Comp Metabolic Whu144 eGFR 72 ml/min/1.73m2 09/06/2016 Comp Metabolic Gvm605 BUN 23 mg/dL 09/06/2016 Comp Metabolic Ihn674 B/C Ratio 28.4 Ratio 09/06/2016 Comp Metabolic Pyn726 CALCIUM 9.2 mg/dL 09/06/2016 Comp Metabolic Sbz447 ALK PHOS 58 U/L 09/06/2016 Comp Metabolic Eru254 AST(SGOT) 24 U/L 09/06/2016 Comp Metabolic Bgy307 ALT(SGPT) 25 U/L 09/06/2016 Comp Metabolic Fuy595 BILI T 0.4 mg/dL 09/06/2016 Comp Metabolic Xnj245 ALBUMIN 3.9 g/dL 09/06/2016 Comp Metabolic Ffx352 TPRO 5.9 g/dL 09/06/2016 Comp Metabolic Egq532 GLOB 2.0 g/dL 09/06/2016 Comp Metabolic Xvj289 A/G Ratio 1.9 Ratio 09/06/2016 Comp Metabolic Ykr108 Osmo 281 mOsmo 09/06/2016 B Type Natriuretic Peptide Fgc9850 B-CHEF CONCIERGE 343.00 pg/ml 2016 Review of Systems System [...] Effective Dates Notes Full Exam - General 1995 Constitutional general appearance Overall: well developed 04/14/2017 None Full Exam - General 1995 Constitutional general appearance Overall: in no acute distress 04/14/2017 None Full Exam - General 1995 Constitutional general appearance Overall: well nourished 04/14/2017 None Full Exam - General 1995 Ears/Nose/Throat oral cavity/pharynx/larynx Overall: oral mucosa clear 04/14/2017 None Full Exam - General 1995 Ears/Nose/Throat oral cavity/pharynx/larynx Overall: oropharyngeal mucosa clear 04/14/2017 None Full Exam - General 1995 Ears/Nose/Throat oral cavity/pharynx/larynx Overall: no masses 04/14/2017 [...] contact 08/12/2016 None Full Exam - General 1994 [...] distress 04/13/2016 None Full Exam - General 1994 Constitutional general appearance Overall: well nourished 04/13/2016 [...] sounds 04/13/2016 None Full Exam - General 1995 Lymphatic neck nodes Overall: anterior cervical chain [...] FLU VACC PRSV FREE INC ANTIG CPT-4: 98041 12/13/2016 URINALYSIS NONAUTO W/O SCOPE CPT-4: 90690 09/06/2016 TRIAMCINOLONE ACET INJ NOS CPT-4: J3301 08/04/2015 DRAIN/INJECT JOINT/BURSA CPT-4: 36525 08/04/2015 Vital Signs Date Vital 04/14/2017 Blood Pressure 1: 134/80 Code : 8480-6 Heart Rate 1: 82 bpm Height: 5'9" Respiratory Rate: 25 bpm SpO2: 97% Weight: 02/15/2017 Blood Pressure 1: 136/80 Code : 8480-6 BMI: 20.1 Code : 73167-3 Heart Rate 1 : 90 bpm Height: 5'9" SpO2: 97% Weight: 136 lbs 02/01/2017 Blood Pressure 1: 136/76 Code : 8480-6 BMI: 19.6 Code : 18279-5 Heart Rate 1 : 76 bpm Height: 5'9" SpO2: 99% Weight: 133 lbs 01/07/2017 Blood Pressure 1: 144/70 Code : 8480-6 BMI: 19.2 Code : 05106-6 Heart Rate 1 : 84 bpm Height: 5'9" SpO2: 99% Weight: 130 lbs 12/13/2016 Blood Pressure 1: 136/72 Code : 8480-6 BMI: 19.2 Code : 90979-5 Heart Rate 1 : 76 bpm Height: 5'9" SpO2: 98% Weight: 130 lbs 11/16/2016 Blood Pressure 1: 144/70 Code : 8480-6 BMI: 19.2 Code : 83034-8 Heart Rate 1 : 67 bpm Height: 5'9" SpO2: 97% Weight: 130 lbs 10/14/2016 Blood Pressure 1: 122/70 Code : 8480-6 BMI: 19.1 Code : 76394-8 Heart Rate 1 : 76 bpm Height: 5'9" SpO2: 96% Weight: 129 lbs 8 oz 09/16/2016 Blood Pressure 1: 132/72 Code : 8480-6 BMI: 19.3 Code : 26502-0 Heart Rate 1 : 98 bpm Height: 5'9" SpO2: 98% Weight: 131 lbs 09/06/2016 Blood Pressure 1: 136/80 Code : 8480-6 BMI: 19.3 Code : 44052-5 Heart Rate 1 : 77 bpm Height: 5'9" SpO2: 97% Weight: 131 lbs 08/12/2016 Blood Pressure 1: 132/78 Code : 8480-6 BMI: 19.6 Code : 07896-6 Heart Rate 1 : 87 bpm Height: 5'9" SpO2: 95% Weight: 133 lbs 04/13/2016 Blood Pressure 1: 132/80 Code : 8480-6 BMI: 19.3 Code : 04903-3 Heart Rate 1 : 69 bpm Height: 5'9" SpO2: 98% Weight: 131 lbs 03/30/2016 Blood Pressure 1: 152/90 Code : 8480-6 Heart Rate 1: 105 bpm Height: 5'9" Respiratory Rate: 24 bpm SpO2: 95% 03/23/2016 Blood Pressure 1: 132/68 Code : 8480-6 Heart Rate 1: 84 bpm SpO2: 95% 01/13/2016 Blood Pressure 1: 138/82 Code : 8480-6 BMI: 20.1 Code : 09247-4 Heart Rate 1 : 93 bpm Height: 5'9" SpO2: 98% Weight: 136 lbs 10/13/2015 Blood Pressure 1: 140/80 Code : 8480-6 BMI: 19.9 Code : 55636-4 Heart Rate 1 : 98 bpm Height: 5'9" SpO2: 90% Weight: 135 lbs 08/04/2015 Blood Pressure 1: 140/70 Code : 8480-6 BMI: 20.8 Code : 16944-9 Heart Rate 1 : 83 bpm Height: 5'9" SpO2: 97% Weight: 141 lbs 05/19/2015 Blood Pressure 1: 132/72 Code : 8480-6 BMI: 20.8 Code : 75469-4 Heart Rate 1 : 88 bpm Height: 5'9" SpO2: 96% Weight: 141 lbs 01/14/2015 Blood Pressure 1: 120/64 Code : 8480-6 BMI: 20.4 Code : 36670-0 Heart Rate 1 : 77 bpm Height: 5'9" SpO2: 96% Weight: 138 lbs 10/15/2014 Blood Pressure 1: 136/68 Code : 8480-6 BMI: 19.5 Code : 25537-3 Heart Rate 1 : 91 bpm Height: 5'9" SpO2: 96% Weight: 132 lbs 09/12/2014 Blood Pressure 1: 122/72 Code : 8480-6 BMI: 19.0 Code : 48833-8 Heart Rate 1 : 71 bpm Height: 5'9" SpO2: 97% Weight: 129 lbs 08/20/2014 Blood Pressure 1: 138/90 Code : 8480-6 BMI: 18.8 Code : 64924-0 Heart Rate 1 : 92 bpm Height: [...] if she is supposed to use nebulizer- reinaldo brought it to her and then told [...] data Encounters Encounter Performer Location Codes Date ([id number]) [id number] EST. PATIENT, LEVEL IV Diagnosis: Parkinson's disease[ICD10: G20] Diagnosis: Essential (primary) hypertension[ICD10: I10] Diagnosis: Muscle weakness (generalized)[ICD10: M62.81] Diagnosis: Shortness of breath[ICD10: R06.02] Diagnosis: Vitamin D deficiency, unspecified[ICD10: E55.9] Jazz Bonds MD, [facility] CPT-4: 79907 04/14/2017 [id number]) 50121 EST. PATIENT, LEVEL IV Diagnosis: Localized enlarged lymph nodes[ICD10: R59.0] Diagnosis: Muscle weakness (generalized)[ICD10: M62.81] Diagnosis: Parkinson's disease[ICD10: G20] Jazz Bonds MD, [facility] CPT- 4: 48536 02/15/2017 [id number]) 57157 EST. 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 PATIENT, LEVEL III Diagnosis: Essential (primary) hypertension[ICD10: I10] Diagnosis: Dehydration[ICD10: E86.0] Josefa Bonds MD, [facility] CPT-4: 40110 09/16/2016 ([id number]) 13313 EST. 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 PATIENT, LEVEL IV Diagnosis: Essential (primary) hypertension[ICD10: I10] Diagnosis: Parkinson's disease[ICD10: G20] Diagnosis: Major depressive disorder, recurrent, mild[ICD10: F33.0] Jazz Bonds MD [facility] CPT-4: 09773 04/13/2016 ([id number]) 64677 EST. PATIENT, LEVEL IV Diagnosis: Parkinson's disease[ICD10: G20] Diagnosis: Acute combined systolic (congestive) and diastolic (congestive) heart failure[ICD10: I50.41] Diagnosis: Chronic obstructive pulmonary disease with acute lower respiratory infection[ICD10: J44.0] Jazz Bonds MD [facility] CPT-4: 62664 03/30/2016 97818 EST. PATIENT, LEVEL III Diagnosis: Parkinson's disease[ICD10: G20] Diagnosis: Acute combined systolic (congestive) and diastolic (congestive) heart failure[ICD10: I50.41] Diagnosis: Shortness of breath[ICD10: R06.02] Venice Bonds MD, [facility] CPT-4: 62729 03/23/2016 ([id number]) 64714 EST. PATIENT, LEVEL IV Diagnosis: Parkinson's disease[ICD10: G20] Diagnosis: Vitamin D deficiency, unspecified[ICD10: E55.9] Diagnosis: Other forms of dyspnea[ICD10: R06.09] Diagnosis: Chronic obstructive pulmonary disease with acute lower respiratory infection[ICD10: J44.0] Diagnosis: Major depressive disorder, recurrent, mild[ICD10: F33.0] Jazz Bonds MD, [facility] CPT-4: 02920 01/13/2016 ([id number]) 12376 EST. PATIENT, LEVEL III Diagnosis: Parkinson's disease[ICD10: G20] Jazz Bonds MD [facility] CPT- 4: 29487 10/13/2015 65642 EST. PATIENT, LEVEL III Diagnosis: Pain in right shoulder[ICD10: M25.511] Venice Bonds MD, [facility] CPT-4: 46916 08/04/2015 ([id number]) 40050 EST. PATIENT, LEVEL IV Diagnosis: Parkinson's disease[ICD10: G20] Diagnosis: Vitamin D deficiency, unspecified[ICD10: E55.9] Diagnosis: Pain in right shoulder[ICD10: M25.511] Jazz Bonds MD, [facility] CPT-4: 67734 05/19/2015 ([id number]) 86340 EST. PATIENT, LEVEL IV Diagnosis: Parkinson's disease[ICD10: G20] Diagnosis: Chronic obstructive pulmonary disease with acute lower respiratory infection[ICD10: J44.0] Jazz Bonds MD, [facility] CPT-4: 32378 01/14/2015 ([id number]) 61909 EST. PATIENT, LEVEL III Diagnosis: COPD (chronic obstructive pulmonary disease)[ICD9: 496] Diagnosis: SHORTNESS OF BREATH[ICD9: 786.05] Diagnosis: Parkinsons disease[ICD9: 332.0] Jazz Bonds MD, [facility] CPT- 4: 75884 10/15/2014 ([id number]) 20307 EST. PATIENT, LEVEL IV Diagnosis: COPD (chronic obstructive pulmonary disease)[ICD9: 496] Diagnosis: Lesion of ear[ICD9: 380.89] Diagnosis: SHORTNESS OF BREATH[ICD9: 786.05] Josefa Bonds MD, [facility] CPT-4: 56770 09/12/2014 ([id number]) OFFICE VISIT, NEW - LEVEL 4 Diagnosis: COPD (chronic obstructive pulmonary disease)[ICD9: 496] Diagnosis: SHORTNESS OF BREATH[ICD9: 786.05] Diagnosis: Parkinsons disease[ICD9: 332.0] Diagnosis: Bilateral leg cramps[ICD9: 729.82] Diagnosis: VITAMIN D DEFICIENCY[ICD9: 268.9] Josefa Bonds MD, [facility] CPT-4: 32317 08/20/2014 Plan of Care Planned Activity Notes [...] leg/thigh strengthening. 04/14/2017 App[facility]ment: [id number] ([facility] min) Moderate 04/14/2017 Patient Education: Patient Medication Summary Completed 04/14/2017 Visit Plan: Lymphadenopathy - recommended patient to return to clinic in about 2 months - monitor symptoms - call if swelling is acutely worsening. Weakness, Parkinson's disease - recommended increase in activity - monitor symptoms - patient is to start leg/thigh strengthening. 02/15/2017 App[facility]ment: [phone] (15 min) Moderate 02/15/2017 Patient Education: Patient Medication Summary Completed 02/15/2017 Visit Plan: EEHU-LLK-mbbqcvfvs-patient wears continuous oxygen at 2L per nasal cannula and continues to notice improvement in symptoms with use of oxygen - less fatigue, less shortness of breath, better rest at night and less anxious about breathing. Patient continues to benefit from therapy -will fax note to patient's oxygen supply company-[employer]. 02/01/2017 Appointment: Josefa Gardner [phone] [place] (30 min) Complex 02/01/2017 Patient Education: Patient [...] surrogate. 01/07/2017 Appointment: Josefa Gardner WPtel: [phone] [phone] [facility] - Annual Wellness Visit 01/07/2017 Patient Education: [...] in clinic 12/13/2016 Appointment: Jazz Bonds WPtel: [facility] (15 min) Moderate 12/13/2016 Patient Education: Patient Medication Summary Completed 12/13/2016 Visit Plan: CHF - stable - continue with lasix prn-check labs COPD - continue with current treatment - pt going to pulmonary rehab HTN- controlled-no changes 11/16/2016 Appointment: Josefa Gardner WPtel: [facility]5 [phone] (30 min) Complex 11/16/2016 Patient Education: Patient [...] daily 10/14/2016 Appointment: Josefa Gardner WPtel: [phone] [phone] (30 min) Complex 10/14/2016 Patient Education: Patient Medication Summary Completed 10/14/2016 Appointment: Josefa Gardner WPtel: [address] [place], [place] [id number] (30 min) Complex 10/07/2016 Appointment: Josefa Gardner WPtel: [address] [place], [place] [id number] (30 min) Complex 09/27/2016 Visit Plan: HTN-low in the ER-blood pressure stable-no changes Dehydration-ER follow qh-vqclvvci-jfcvc labs 09/16/2016 Appointment: Josefa Gardner WPtel: [address] [place], [place] [id number] (30 min) Complex 09/16/2016 Patient Education: Patient Medication Summary Completed 09/16/2016 Visit Plan: CHF-check BNP-monitor symptoms-follow up with Dr García next week BYT-qyurcjinfd-wo change in medications Reflux-daily prilosec daily x [...] symptoms worsen. 08/12/2016 Appointment: Jazz Bonds WPtel: [facility]2 [facility] (15 min) Moderate 08/12/2016 Patient Education: Patient Medication Summary Completed 08/12/2016 Appointment: Josefa Gardner WPtel: [facility]5 [phone] [place] (30 min) Complex 07/12/2016 Visit Plan: [...] rehab 04/13/2016 Appointment: Jazz Bonds [facility]Ptel[phone] [facility] (15 min) Moderate 04/13/2016 Patient Education: Patient Medication Summary Completed 04/13/2016 Appointment: Jose[facility] Gardner [facility]el[phone] [place] (15 min) Moderate 04/02/2016 Visit Plan: [...] rehab 03/30/2016 Appointment: Jazz Bonds [facility]Ptel[phone] [facility] [place] (15 min) Moderate 03/30/2016 Patient Education: [...] acute changes. 03/23/2016 Appointment: Venice Barcenas WPtel: [facility]5 [phone] (30 min) Complex 03/23/2016 Patient Education: Patient [...] Completed 01/13/2016 Care Plan: COMPLETE CBC AUTOMATED [facility] : 73676-9 Pending 01/13/2016 Visit Plan: Parkinson's Disease - pt has diagnosis of Parkinson's disease with movement disorder impinging upon daily activities. The pt is to be on sinemet as directed, and medications to be adjusted as appropriate for alleviation of the impairment of ADL's. Pt or pt's family is to alert this office if symptoms worsen. 10/13/2015 Appointment: Jazz Bonds WPtel: [facility] [place] (15 min) Moderate 10/13/2015 Patient Education: Patient Medication Summary Completed 10/13/2015 Appointment: Jazz Bonds WPtel: [address] [facility] (15 min) Moderate 09/18/2015 Visit Plan: Joint Injection - Pt was given post - injection instructions. The pt has been advised to use anti-inflammatories post injection today, ice to the injected site, call if redness, warmth, or increased pain occurs at the site of injection. 08/04/2015 Appointment: Venice Barcenas WPtel: [facility]2 [phone] (30 min) Complex 08/04/2015 Patient Education: Patient [...] as above 05/19/2015 Appointment: Jazz Bonds WPtel: [facility] (15 min) Moderate 05/19/2015 Patient Education: [...] has improved. 01/14/2015 Appointment: Jazz Bonds WPtel: [facility] (15 min) Moderate 01/14/2015 Patient Education: [...] treatment. 10/15/2014 Appointment: Jazz Bonds [facility]Ptel[phone] (15 min) Moderate 10/15/2014 Patient Education: Patient [...] Completed 09/12/2014 Care Plan: COMPLETE CBC AUTOMATED LOINC : 25975-4 Ordered 08/22/2014 Visit Plan: COPD - chronic [...] treatment - pt going to pulmonary rehab VXN-ueotozkoft-xp changes Fax today's note to oxygen supply company . COPD-CHF- hypoxemia-patient wears continuous oxygen at 2L per nasal cannula and continues to notice improvement in symptoms with use of oxygen - less fatigue, less shortness of breath, better rest at night and less anxious about breathing. Patient continues to benefit from therapy -will fax note to patient's oxygen supply company-[employer]. TAKE PRILOSEC DAILY X 2 WEEKS (THIS IS YOUR ACID PILL) CHECK LABS TODAY INCLUDING UA . CHF-check BNP-monitor symptoms-follow up with Dr García next week HFI-yghbixxikn-zc change in medications Reflux-daily prilosec daily x 2 weeks vitamin D3 5000 units daily. stop fish oil start aspirin 81mg four times a week get [employer] from [employer] and home to use on the right [...] the ER-blood pressure stable-no changes Dehydration-ER follow nf-uvqxdekq-cdgpx labs . Medicare Exam - today we [...] change in blood pressure readings at home. Yxlhbjlvpu-zomxdq-ea changes GERD-continue prilosec daily take potassium schedule [...] change in blood pressure readings at home. Bfrdigmnkx-fqjutx-lq changes GERD-continue prilosec daily take potassium schedule [...] change in blood pressure readings at home. Bhuwwgwnog-ifdqds-uq changes GERD-continue prilosec daily . Hospital follow [...]
--- OUTSIDE RECORDS SUMMARY | 2017-09-23 01:30 | XMS REPORT | Continuity of Care Document ---
Author Author [facility] Organization [facility] Address Unknown Phone Unavailable Allergies Active Description Code Type Severity Reaction Onset Reported/Identified Relationship to Patient Clinical Status Yes Penicillins [id number] Drug Allergy Mild N/A 08/05/2013 Medications There is no data. 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.9 MAL ELICIA LYMPH NODE NOS 09/04/2012 MILENA ISAACS Ot V10.3 HX OF BREAST MALIGNANCY 07/19/2013 DOMINICK CARUSO MD Ot 332.0 PARALYSIS AGITANS 07/19/2013 DOMINICK CARUSO MD Ot V57.1 PHYSICAL THERAPY NEC 08/07/2013 DOMINICK CARUSO MD Ot 276.1 HYPOSMOLALITY 08/07/2013 DOMINICK CARUSO MD Ot 332.0 PARALYSIS AGITANS 08/07/2013 DOMINICK CARUSO MD Ot 401.9 HYPERTENSION NOS 08/07/2013 DOMINICK CARUSO MD Ot 714.0 RHEUMATOID ARTHRITIS 08/22/2013 TEREZA SHARMA, ELOISE E Ot 276.1 HYPOSMOLALITY 08/22/2013 TEREZA SHARMA, ELOISE E Ot 276.8 HYPOPOTASSEMIA 08/22/2013 TEREZA SHARMA, ELOISE E Ot 311 DEPRESSIVE DISORDER NEC 08/22/2013 TEREZA SHARMA, ELOISE E Ot 332.0 PARALYSIS AGITANS 08/22/2013 TEREZA SHARMA, ELOISE E Ot 401.9 HYPERTENSION NOS 08/22/2013 TEREZA SHARMA, ELOISE E Ot 530.81 ESOPHAGEAL REFLUX 08/22/2013 TEREZA SHARMA ELOISE E Ot 714.0 RHEUMATOID ARTHRITIS 08/22/2013 TEREZA SHARMA, ELOISE E Ot 715.31 LOC OSTEOARTH NOS-SHLDER 08/22/2013 TEREZA SHARMA, ELOISE E Ot 719.45 JOINT PAIN-PELVIS 08/22/2013 TEREZA SHARMA, ELOISE E Ot 787.02 NAUSEA ALONE 08/22/2013 ELOISE STARKS MD E Ot V57.89 REHABILITATION PROC NEC 10/28/2013 MILENA ISAACS Ot 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 10/28/2013 MILENA ISAACS Ot 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.9 MAL ELICIA LYMPH NODE NOS 10/28/2013 MILENA ISAACS Ot V10.3 HX OF BREAST MALIGNANCY 11/01/2013 DOMINICK CARUSO MD Ot 332.0 PARALYSIS AGITANS 11/01/2013 DOMINICK CARUSO MD Ot V57.1 PHYSICAL THERAPY NEC 03/11/2014 DOMINICK CARUSO MD Ot 276.1 06/07/2014 DOMINICK CARUSO MD Ot 780.79 06/14/2014 DOMINICK CARUSO MD Ot 728.87 06/14/2014 DOMINICK CARUSO MD Ot V57.1 06/17/2014 DOMINICK CARUSO MD Ot 728.87 06/17/2014 DOMINICK CARUSO MD Ot V57.1 06/17/2014 DOMINICK CARUSO MD Ot 728.87 06/17/2014 DOMINICK CARUSO MD Ot V57.1 06/25/2014 DOMINICK CARUSO MD Ot 332.0 06/25/2014 DOMINICK CARUOS MD Ot 780.79 07/11/2014 DOMINICK CARUSO MD Ot 780.79 07/16/2014 DOMINICK CARUSO MD Ot 728.87 MUSCLE WEAKNESS (GENERALIZED) 07/16/2014 SHADY SHARMA, DOMINICK Alcazar Ot V57.1 PHYSICAL THERAPY NEC 07/16/2014 SHADY SHARMA, DOMINICK Alcazar Ot 332.0 07/16/2014 SHADY SHAMRA, DOMINICK Alcazar Ot 780.79 07/24/2014 FERNY, BOBAN N Ot 153.9 07/24/2014 FERNY, BOBAN N Ot 196.9 07/24/2014 FERNY, BOBAN N Ot V10.3 07/26/2014 FERNY, BOBAN N Ot 153.9 07/26/2014 FERNY, BOBAN N Ot 196.9 07/26/2014 FERNY, BOBAN N Ot V10.3 07/26/2014 KRIS URIOSTEGUI MD Ot 726.0 ADHESIVE CAPSULIT SHLDER 07/26/2014 KRIS URIOSTEGUI MD Ot V57.1 PHYSICAL THERAPY NEC 07/29/2014 FERNY, BOBAN N Ot 153.9 07/29/2014 FERNY, BOBAN N Ot 196.9 07/29/2014 FERNY, BOBAN N Ot V10.3 08/02/2014 BRITTANY DIXON REHAB SERVICES AIDE Ot 332.0 08/02/2014 BRITTANY DIXON S REHAB SERVICES AIDE Ot 585.3 08/02/2014 BRITTANY DIXON S REHAB SERVICES AIDE Ot 724.5 08/02/2014 BRITTANY DXION S REHAB SERVICES AIDE Ot 780.79 08/02/2014 DIXONBRITTANY Echevarria S REHAB SERVICES AIDE Ot 791.9 08/02/2014 DIXONBRITTANY Echevarria S REHAB SERVICES AIDE Ot V10.05 08/02/2014 DIXONBRITTANY Echevarria S REHAB SERVICES AIDE Ot V10.3 08/02/2014 BRITTANY DIXON S REHAB SERVICES AIDE Ot V45.71 08/02/2014 BRITTANY DIXON S REHAB SERVICES AIDE Ot V58.69 08/02/2014 BRITTANY DIXON S REHAB SERVICES AIDE Ot V67.2 08/09/2014 NGOC SHARMA, MARIS Hammonds Ot 496 CHR AIRWAY OBSTRUCT NEC 08/09/2014 NGOC SHARMA, MARIS Hammonds Ot 530.81 ESOPHAGEAL REFLUX 08/09/2014 NGOC SHARMA, MARIS Hammonds Ot 786.05 SHORTNESS OF BREATH 08/09/2014 NGOC SHARMA, MARIS Hammonds Ot 786.50 CHEST PAIN NOS 08/22/2014 HECTOR ENGLE [employer] AIDE Ot 268.9 08/22/2014 HECTOR [employer] AIDE Ot 332.0 08/22/2014 HECTOR [employer] AIDE Ot 496 08/22/2014 HECTOR [employer] AIDE Ot V58.69 08/22/2014 HECT[employer] AIDE Ot V72.62 09/12/2014 HECT[employer] AIDE Ot 268.9 09/12/2014 HECT[employer] AIDE Ot 332.0 09/12/2014 HECT[employer] AIDE Ot 496 09/12/2014 H[employer] AIDE Ot V58.69 09/12/2014 HECT[employer] AIDE Ot V72.62 10/24/2014 MILENA ISAACS N Ot 153.9 MALIGNANT ELICAI COLON NOS 10/24/2014 FERNYMILENA N Ot 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.9 MAL ELICIA LYMPH NODE NOS 10/24/2014 FERNYMILENA MORALES N Ot V10.3 HX OF BREAST MALIGNANCY 10/30/2014 FERNY, BOBAN N Ot 153.9 10/30/2014 FERNY, BOBAN N Ot 196.9 10/30/2014 FERNY, BOBAN N Ot V10.3 11/06/2014 FERNY, BOBAN N Ot 153.9 11/06/2014 FERNY, BOBAN N Ot 196.9 11/06/2014 FERNY, BOBAN N Ot V10.3 12/11/2014 FERNY, BOBAN N Ot 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 12/11/2014 FERNY, BOBAN N Ot 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.9 MAL ELICIA LYMPH NODE NOS 12/11/2014 FERNYRAFFAELE MORALESAN N Ot V10.3 HX OF BREAST MALIGNANCY 02/28/2015 MIKY SHARMA, NICOLE Feng Ot M79.601 PAIN IN RIGHT ARM 08/13/2015 Ot 272.4 09/05/2015 MILENA ISAACS Ot G20 PARKINSON'S DISEASE 09/05/2015 MILENA ISAACS Ot Z08 ENCNTR FOR FOLLOW-UP EXAM AFTER TRTMT FO 09/05/2015 MILENA ISAACS Ot Z79.899 OTHER SENIOR LIVING (CURRENT) DRUG THERAPY 09/05/2015 MILENA ISAACS N Ot Z85.038 PERSONAL HISTORY OF MALIGNANT NEOPLASM O 09/05/2015 FERNYMILENA MORALES N Ot Z85.3 PERSONAL HISTORY OF MALIGNANT NEOPLASM O 10/10/2015 MILENA ISAACS N Ot G20 PARKINSON'S DISEASE 10/10/2015 MILENA ISAACS N Ot Z08 ENCNTR FOR FOLLOW-UP EXAM AFTER TRTMT FO 10/10/2015 MILENA ISAACS N Ot Z79.899 OTHER ZIGZAG ELASTIC ATTACHER (CURRENT) DRUG THERAPY 10/10/2015 MILENA ISAACS N Ot Z85.038 PERSONAL HISTORY OF MALIGNANT NEOPLASM O 10/10/2015 FERNYMILENA MORALES N Ot Z85.3 PERSONAL HISTORY OF MALIGNANT NEOPLASM O 10/20/2015 MILENA ISAACS N Ot G20 PARKINSON'S DISEASE 10/20/2015 MILENA ISAACS N Ot Z08 ENCNTR FOR FOLLOW-UP EXAM AFTER TRTMT FO 10/20/2015 MILENA ISAACS N Ot Z79.899 OTHER SENIOR LIVING (CURRENT) DRUG THERAPY 10/20/2015 MILENA ISAACS N Ot Z85.038 PERSONAL HISTORY OF MALIGNANT NEOPLASM O 10/20/2015 MILENA ISAACS N Ot Z85.3 PERSONAL HISTORY OF MALIGNANT NEOPLASM O 03/05/2016 KENDRA COYLE APRN Ot G20 PARKINSON'S DISEASE 03/05/2016 KENDRA COYLE APRN Ot M79.621 PAIN IN RIGHT UPPER ARM 03/17/2016 MIKY SHARMA, NICOLE Feng Ot E78.00 PURE HYPERCHOLESTEROLEMIA, UNSPECIFIED 03/17/2016 MIKY SHARMA, NICOLE Feng Ot G20 PARKINSON'S DISEASE 03/17/2016 MIKY SHARMA, NICOLE Feng Ot I11.0 HYPERTENSIVE HEART DISEASE WITH HEART FA 03/17/2016 MIKY SHARMA, NICOLE Feng Ot I44.7 LEFT BUNDLE-BRANCH BLOCK, UNSPECIFIED 03/17/2016 NICOLE BOLAÑOS MD Ot I50.9 HEART FAILURE, UNSPECIFIED 03/17/2016 MIKY SHARMA, NICOLE Feng Ot K21.9 GASTRO-ESOPHAGEAL REFLUX DISEASE WITHOUT 03/17/2016 MIKY SHARMA, NICOLE Feng Ot M06.9 RHEUMATOID ARTHRITIS, UNSPECIFIED 03/17/2016 NICOLE BOLAÑOS MD Ot M19.90 UNSPECIFIED OSTEOARTHRITIS, UNSPECIFIED 03/17/2016 MIKYNICOLE AGUILAR MD Ot M54.9 DORSALGIA, UNSPECIFIED 03/17/2016 NICOLE [...] I50.9 HEART FAILURE, UNSPECIFIED 03/18/2016 NICOLE BOLAÑOS MD, Ot K21.9 GASTRO-ESOPHAGEAL REFLUX DISEASE WITHOUT 03/18/2016 [...] MD Ot E78.00 PURE HYPERCHOLESTEROLEMIA, UNSPECIFIED 03/19/2016 INCOLE BOLAÑOS MD, Ot G20 PARKINSON'S DISEASE 03/19/2016 NICOLE BOLAÑOS MD Ot I11.0 HYPERTENSIVE HEART DISEASE WITH HEART FA 03/19/2016 NICOLE BOLAÑOS MD Ot I44.7 LEFT BUNDLE-BRANCH BLOCK, UNSPECIFIED 03/19/2016 NICOLE BOLAÑOS MD Ot I50.9 HEART FAILURE, UNSPECIFIED 03/19/2016 NICOLE BOLAÑOS MD Ot K21.9 GASTRO-ESOPHAGEAL REFLUX DISEASE WITHOUT 03/19/2016 [...] SYSTOLIC (CONGESTIVE) HEART FAILUR 03/19/2016 NICOLE BOLAÑOS MD Ot K21.9 GASTRO-ESOPHAGEAL REFLUX DISEASE WITHOUT 03/19/2016 NICOLE BOLAÑOS MD Ot M06.9 RHEUMATOID ARTHRITIS, UNSPECIFIED 03/19/2016 NICOLE BOLAÑOS MD Ot M19.90 UNSPECIFIED OSTEOARTHRITIS, UNSPECIFIED 03/19/2016 NICOLE BOLAÑOS MD, Ot M54.9 DORSALGIA, UNSPECIFIED 03/19/2016 NICOLE BOLAÑOS [...] FO 08/17/2016 MILENA ISAACS Ot Z79.899 OTHER ZIGZAG ELASTIC ATTACHER (CURRENT) DRUG THERAPY 08/17/2016 MILENA ISAACS Ot Z85.038 PERSONAL HISTORY OF MALIGNANT NEOPLASM O 08/17/2016 MILENA ISAACS Natalie Ot Z85.3 PERSONAL HISTORY OF MALIGNANT NEOPLASM O 08/20/2016 Abisai Lopes W 332.0 PARALYSIS AGITANS 08/20/2016 Abisai Lopes A 491.20 OBSTRUCTIVE CHRONIC BRONCHITIS, WITHOUT EXACERBATION 08/20/2016 Abisai Lopes W G20 PARKINSON'S DISEASE 08/20/2016 Abiasi Lopes J44.9 CHRONIC OBSTRUCTIVE PULMONARY DISEASE, UNSPECIFIED 09/03/2016 DORENE SHARMA, Ottoniel LARKIN Ot I73.9 PERIPHERAL VASCULAR DISEASE, UNSPECIFIED 09/03/2016 DORENE SHARMA, Ottoniel LARKIN Ot I73.9 PERIPHERAL VASCULAR DISEASE, UNSPECIFIED 09/07/2016 MILENA ISAACS Ot G20 PARKINSON'S DISEASE 09/07/2016 MILENA ISAACS Ot Z08 ENCNTR FOR FOLLOW-UP EXAM AFTER TRTMT FO 09/07/2016 MILENA ISAACS Ot Z79.899 OTHER SENIOR LIVING (CURRENT) DRUG THERAPY 09/07/2016 MILENA ISAACS Ot Z85.038 PERSONAL HISTORY OF MALIGNANT NEOPLASM O 09/07/2016 MILENA ISAACS Natalie Ot Z85.3 PERSONAL HISTORY OF MALIGNANT NEOPLASM O 09/09/2016 PILO DO, BEV K Ot E78.00 PURE HYPERCHOLESTEROLEMIA, UNSPECIFIED 09/09/2016 PILO DO, BEV K Ot E86.0 DEHYDRATION 09/09/2016 PILO DO, BEV K Ot G20 PARKINSON'S DISEASE 09/09/2016 PILO DO, BEV K Ot I10 ESSENTIAL (PRIMARY) HYPERTENSION 09/09/2016 PILO DO BEV K Ot K21.9 GASTRO-ESOPHAGEAL REFLUX DISEASE WITHOUT 09/09/2016 PILO DO, BEV K Ot N39.0 URINARY TRACT INFECTION, SITE NOT SPECIF 09/09/2016 PILO DO, BEV K Ot R06.02 SHORTNESS OF BREATH 09/09/2016 PILO DO, BEV K Ot R41.82 ALTERED MENTAL STATUS, UNSPECIFIED 09/09/2016 PILO DO, BEV K Ot R55 SYNCOPE AND COLLAPSE 09/09/2016 PILO DO, BEV K Ot Z79.899 OTHER ZIGZAG ELASTIC ATTACHER (CURRENT) DRUG THERAPY 09/11/2016 PILO DO, BEV K Ot E78.00 PURE HYPERCHOLESTEROLEMIA, UNSPECIFIED 09/11/2016 PILO DO, BEV K Ot E86.0 DEHYDRATION 09/11/2016 PILO DO, BEV K Ot G20 PARKINSON'S DISEASE 09/11/2016 PILO DO, BEV K Ot I10 ESSENTIAL (PRIMARY) HYPERTENSION 09/11/2016 PILO DO, BEV K Ot K21.9 GASTRO-ESOPHAGEAL REFLUX DISEASE WITHOUT 09/11/2016 PILO DOANASTASIAA K Ot N39.0 URINARY TRACT INFECTION, SITE NOT SPECIF 09/11/2016 PILO DO, BEV K Ot R06.02 SHORTNESS OF BREATH 09/11/2016 PILO DO, BEV K Ot R41.82 ALTERED MENTAL STATUS, UNSPECIFIED 09/11/2016 PILO DO BEV K Ot R55 SYNCOPE AND COLLAPSE 09/11/2016 PILO DO, BEV K Ot Z79.899 OTHER ZIGZAG ELASTIC ATTACHER (CURRENT) DRUG THERAPY 10/19/2016 MILENA ISAACS Ot G20 PARKINSON'S DISEASE 10/19/2016 MILENA ISAACS Ot Z08 ENCNTR FOR FOLLOW-UP EXAM AFTER TRTMT FO 10/19/2016 MILENA ISAACS Ot Z79.899 OTHER ZIGZAG ELASTIC ATTACHER (CURRENT) DRUG THERAPY 10/19/2016 MILENA ISAACS Ot Z85.038 PERSONAL HISTORY OF MALIGNANT NEOPLASM O 10/19/2016 MILENA ISAACS Ot Z85.3 PERSONAL HISTORY OF MALIGNANT NEOPLASM O 11/12/2016 DORENE SHARMA, Ottoniel LARKIN Ot I73.9 PERIPHERAL VASCULAR DISEASE, UNSPECIFIED 11/22/2016 Ottoniel CATHERINE MD Ot I42.0 DILATED CARDIOMYOPATHY 11/22/2016 Ottoniel CATHERINE MD Ot 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] 11/22/2016 Ottoniel CATHERINE MD Ot R06.02 SHORTNESS OF BREATH 12/21/2016 Ottoniel CATHERINE MD Ot I42.0 DILATED CARDIOMYOPATHY 12/21/2016 Ottoniel CATHERINE MD Ot I73.9 PERIPHERAL VASCULAR DISEASE, UNSPECIFIED 12/21/2016 Ottoniel CATHERINE MD Ot R06.02 SHORTNESS OF BREATH 12/27/2016 KHALID MD, M CHAYA Ot I42.0 DILATED CARDIOMYOPATHY 12/27/2016 Ottoniel CATHERINE MD Ot 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] 12/27/2016 DORENE SHARMA, Ottoniel LARKIN Ot R06.02 SHORTNESS OF BREATH 05/13/2017 Ot 244.9 HYPOTHYROIDISM NOS 05/13/2017 Ot 268.9 VITAMIN D DEFICIENCY NOS 05/13/2017 Ot 272.4 HYPERLIPIDEMIA NEC/NOS 05/13/2017 DOMINICK CARUSO MD Ot 496 CHR AIRWAY OBSTRUCT NEC 05/13/2017 DOMINICK CARUSO MD Ot 786.05 SHORTNESS OF BREATH 05/13/2017 DOMINICK CARUSO MD Ot 332.0 PARALYSIS AGITANS 05/13/2017 DOMINICK CARUSO MD Ot 786.05 SHORTNESS OF BREATH 05/13/2017 TREVON SHARMA, DARWIN T Ot 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 05/13/2017 DOMINICK CARUSO MD Ot 276.1 HYPOSMOLALITY 05/13/2017 DOMINICK CARUSO MD Ot 276.1 HYPOSMOLALITY 05/13/2017 DOMINICK CARUSO MD Ot 276.1 HYPOSMOLALITY 05/13/2017 DOMINICK CARUSO MD Ot 780.79 OTH MALAISE FATIGUE 05/13/2017 BRITTANY DIXON REHAB SERVICES AIDE Ot 332.0 PARALYSIS AGITANS 05/13/2017 BRITTANY DIXON REHAB SERVICES AIDE Ot 585.3 CHRONIC KIDNEY DISEASE, STAGE III (MODER 05/13/2017 BRITTANY DIXON REHAB SERVICES AIDE Ot 724.5 BACKACHE NOS 05/13/2017 BRITTANY DIXON REHAB SERVICES AIDE Ot 780.79 OTH MALAISE FATIGUE 05/13/2017 BRITTANY DIXON REHAB SERVICES AIDE Ot 791.9 ABN URINE FINDINGS NEC 05/13/2017 BRITTANY DIXON REHAB SERVICES AIDE Ot V10.05 HX OF COLONIC MALIGNANCY 05/13/2017 BRITTANY DIXON REHAB SERVICES AIDE Ot V10.3 HX OF BREAST MALIGNANCY 05/13/2017 BRITTANY DIXON REHAB SERVICES AIDE Ot V45.71 ACQUIRED ABSENCE OF BREAST AND NIPPLE 05/13/2017 BRITTANY DIXON REHAB SERVICES AIDE Ot V58.69 OTH MED,LT,CURRENT USE 05/13/2017 BRITTANY DIXON REHAB SERVICES AIDE Ot V67.2 CHEMOTHERAPY FOLLOW-UP 05/13/2017 DOMINICK CARUSO MD Ot 332.0 PARALYSIS AGITANS 05/13/2017 DOMINICK CARUSO MD Ot 780.79 OTH MALAISE FATIGUE 05/13/2017 [facility] [employer] AIDE Ot 268.9 VITAMIN D DEFICIENCY NOS 05/13/2017 H[employer] AIDE Ot 332.0 PARALYSIS AGITANS 05/13/2017 HECT[employer] AIDE Ot 496 CHR AIRWAY OBSTRUCT NEC 05/13/2017 [employer] AIDE Ot V58.69 OTH MED,LT,CURRENT USE 05/13/2017 [employer] AIDE Ot V72.62 LAB EXAM ORDERED PART OF A ROUTINE GE 05/13/2017 SCOTTY YBARRA DO, Ot G20 PARKINSON'S DISEASE 05/13/2017 SCOTTY YBARRA DO Ot R06.02 SHORTNESS OF BREATH 05/13/2017 Ottoniel CATHERINE MD Ot I42.0 DILATED CARDIOMYOPATHY 05/13/2017 MILENA ISAACS Ot G20 PARKINSON'S DISEASE 05/13/2017 MILENA ISAACS Ot Z08 ENCNTR FOR FOLLOW-UP EXAM AFTER TRTMT FO 05/13/2017 MILENA ISAACS Ot Z79.899 OTHER ZIGZAG ELASTIC ATTACHER (CURRENT) DRUG THERAPY 05/13/2017 MILENA ISAACS Ot Z85.038 PERSONAL HISTORY OF MALIGNANT NEOPLASM O 05/13/2017 MILENA ISAACS Ot Z85.3 PERSONAL HISTORY OF MALIGNANT NEOPLASM O 05/13/2017 Ottoniel CATHERINE MD Ot I42.0 DILATED CARDIOMYOPATHY 05/13/2017 Ottoniel CATHERINE MD Ot I73.9 PERIPHERAL VASCULAR DISEASE, UNSPECIFIED 05/13/2017 Ottoniel CATHERINE MD Ot R06.02 SHORTNESS OF BREATH 05/13/2017 Ottoniel CATHERINE MD Ot I42.0 DILATED CARDIOMYOPATHY 05/13/2017 Ottoniel CATHERINE MD Ot 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] 05/13/2017 Ottoniel CATHERINE MD Ot R06.02 SHORTNESS OF BREATH 05/18/2017 DORENE SHARMA, M CHAYA Ot I12.9 HYPERTENSIVE CHRONIC KIDNEY DISEASE W ST 05/18/2017 DORENE SHARMA, M CHAYA Ot I42.9 CARDIOMYOPATHY, UNSPECIFIED 05/18/2017 DORENE SHARMA, M CHAYA Ot N18.3 CHRONIC KIDNEY DISEASE, STAGE 3 (MODERAT 05/18/2017 DORENE SHARMA, M CHAYA Ot R06.02 SHORTNESS OF BREATH 06/07/2017 DORENE SHARMA, M CHAYA Ot I12.9 HYPERTENSIVE CHRONIC KIDNEY DISEASE W ST 06/07/2017 DORENE SHARMA, M CHAYA Ot I42.9 CARDIOMYOPATHY, UNSPECIFIED 06/07/2017 DORENE SHARMA, M CHAYA Ot N18.3 CHRONIC KIDNEY DISEASE, STAGE 3 (MODERAT 06/07/2017 DORENE SHARMA, M CHAYA Ot R06.02 SHORTNESS OF BREATH 06/13/2017 ELOISE STARKS MD E Ot E78.00 PURE HYPERCHOLESTEROLEMIA, UNSPECIFIED 06/13/2017 GEORGE STARKS MDIC E Ot E78.5 HYPERLIPIDEMIA, UNSPECIFIED 06/13/2017 GEORGE STARKS MDIC E Ot F41.1 GENERALIZED ANXIETY DISORDER 06/13/2017 ELOISE STARKS MD E Ot G20 PARKINSON'S DISEASE 06/13/2017 ELOISE STARKS MD E Ot I12.9 HYPERTENSIVE CHRONIC KIDNEY DISEASE W ST 06/13/2017 ELOISE STARKS MD E Ot I42.9 CARDIOMYOPATHY, UNSPECIFIED 06/13/2017 ELOISE STARKS MD E Ot J44.9 CHRONIC OBSTRUCTIVE PULMONARY DISEASE, U 06/13/2017 ELOISE STARKS MD E Ot K21.9 GASTRO-ESOPHAGEAL REFLUX DISEASE WITHOUT 06/13/2017 ELOISE STARKS MD E Ot N18.3 CHRONIC KIDNEY DISEASE, STAGE 3 (MODERAT 06/13/2017 ELOISE STARKS MD E Ot R29.6 REPEATED FALLS 06/13/2017 GEORGE STARKS MDIC E Ot R49.0 DYSPHONIA 06/13/2017 TEREZA SHARMA ELOISE E Ot Z66 DO NOT RESUSCITATE 06/13/2017 ELOISE STARKS MD E Ot Z85.038 PERSONAL HISTORY OF MALIGNANT NEOPLASM O 06/13/2017 ELOISE STARKS MD E Ot Z85.3 PERSONAL HISTORY OF MALIGNANT NEOPLASM O 09/01/2017 MILENA ISAACS Ot G20 PARKINSON'S DISEASE 09/01/2017 MILENA ISAACS Ot Z08 ENCNTR FOR FOLLOW-UP EXAM AFTER TRTMT FO 09/01/2017 MILENA ISAACS Ot Z79.899 OTHER ZIGZAG ELASTIC ATTACHER (CURRENT) DRUG THERAPY 09/01/2017 MILENA ISAACS Ot Z85.038 PERSONAL HISTORY OF MALIGNANT NEOPLASM O 09/01/2017 MILENA ISAACS Ot Z85.3 PERSONAL HISTORY OF MALIGNANT NEOPLASM O 09/20/2017 MIKY SHARMA, NICOLE Feng Ot E78.00 PURE HYPERCHOLESTEROLEMIA, UNSPECIFIED 09/20/2017 MIKY SHARMA, NICOLE Feng Ot G20 PARKINSON'S DISEASE 09/20/2017 MIKY SHARMA, NICOLE Feng Ot I10 ESSENTIAL (PRIMARY) HYPERTENSION 09/20/2017 MIKY SHARMA, NICOLE Feng Ot J44.9 CHRONIC OBSTRUCTIVE PULMONARY DISEASE, U 09/20/2017 NICOLE BOLAÑOS MD Ot K21.9 GASTRO-ESOPHAGEAL REFLUX DISEASE WITHOUT 09/20/2017 NICOLE BOLAÑOS MD Ot R39.15 URGENCY OF URINATION 09/20/2017 NICOLE BOLAÑOS MD Ot S32.19XA OTHER FRACTURE OF SACRUM, INIT ENCNTR FO 09/20/2017 NICOLE BOLAÑOS MD Ot S32.591A OTH FRACTURE OF RIGHT PUBIS, INIT ENCNTR 09/20/2017 NICOLE BOLAÑOS MD Ot S41.111A LACERATION W/O FOREIGN BODY OF RIGHT UPP 09/20/2017 NICOLE BOLAÑOS MD Ot W19.XXXA UNSPECIFIED FALL, INITIAL ENCOUNTER 09/20/2017 NICOLE BOLAÑOS MD Ot Y92.[address] IN [facility] NON-INSTITUT (PRIVATE) 09/20/2017 NICOLE BOLAÑOS MD Ot Y93.E2 ACTIVITY, LAUNDRY 09/20/2017 NICOLE BOLAÑOS MD Ot Z85.038 PERSONAL HISTORY OF MALIGNANT NEOPLASM O 09/20/2017 NICOLE BOLAÑOS MD, Ot Z85.3 PERSONAL HISTORY OF MALIGNANT NEOPLASM O Procedures Code Description Performed By Performed On [id number] MEASURE OF CARDIAC SAMPL PRESSURE, L H 03/18/2016 [id number] FLUOROSCOPY OF MULT COR ART USING L OSM 03/18/2016 [id number] FLUOROSCOPY OF LEFT HEART USING LOW OSMO 03/18/2016 Results Test Result Range Complete blood count (CBC) with automated white blood cell (WBC) differential - 03/15/16 16:36 Blood leukocytes automated count (number/volume) 6.4 10*3/uL 4.3-11.0 Blood erythrocytes automated count (number/volume) 4.37 10*6/uL 4.35-5.85 Venous blood hemoglobin measurement (mass/volume) 13.8 [...] Automated blood platelet mean volume measurement 9.8 [foz_us] 7.4-10.4 Automated blood neutrophils/100 leukocytes 75 % [...] Serum or plasma sodium measurement (moles/volume) 140 mmol/L 135-145 Serum or plasma potassium measurement (moles/volume) 3.9 mmol/L 3.6-5.0 Serum or plasma chloride measurement (moles/volume) 104 mmol/L 98-107 Carbon dioxide 28 mmol/L 21-32 Serum or plasma anion gap determination (moles/volume) 8 mmol/L 5-14 Serum or plasma urea nitrogen measurement (mass/volume) 17 mg/dL 7-18 Serum or plasma creatinine measurement (mass/volume) 0.82 mg/dL 0.60-1.30 Serum or plasma urea nitrogen/creatinine mass [...] or plasma troponin i.cardiac measurement (mass/volume) < ng/ mL <0.30 Arterial blood gas measurement - 03/15/16 19:02 Blood pCO2 40 mm[Hg] 35-45 Blood pO2 59 mm[Hg] 79-93 Arterial blood bicarbonate measurement (moles/volume) 26 mmol/L 23-27 Arterial blood base excess by calculation 0.9 mmol/L -2.5 -2.5 Arterial blood oxygen saturation measurement 94 % [...] or plasma troponin i.cardiac measurement (mass/volume) < ng/ mL <0.30 Myoglobin, serum - 03/15/16 22:45 Myoglobin, serum 174.2 ng/mL 10.0-92.0 Comprehensive metabolic panel - 03/16/16 03:45 Serum or plasma sodium measurement (moles/volume) 143 mmol/L 135-145 Serum or plasma potassium measurement (moles/volume) 3.4 mmol/L 3.6-5.0 Serum or plasma chloride measurement (moles/volume) 104 mmol/L 98-107 Carbon dioxide 26 mmol/L 21-32 Serum or plasma anion gap determination (moles/volume) 13 mmol/L 5-14 Serum or plasma urea nitrogen measurement (mass/volume) 16 mg/dL 7-18 Serum or plasma creatinine measurement (mass/volume) 0.76 mg/dL 0.60-1.30 Serum or plasma urea nitrogen/creatinine mass [...] Serum or plasma triglyceride measurement (mass/volume) 68 mg/dL <150 Serum or plasma cholesterol measurement (mass/volume) 182 mg/dL < 200 Serum or plasma cholesterol in HDL measurement (mass/volume) 78 mg/ dL 40-60 Cholesterol in LDL [mass/volume] in serum or plasma by direct assay 79 mg/dL 1-129 Serum or plasma cholesterol in VLDL measurement (mass/volume) 14 mg/ dL 5-40 Complete blood count (CBC) with automated white blood cell (WBC) differential - 03/16/16 03:45 Blood leukocytes automated count (number/volume) 4.7 10*3/uL 4.3-11.0 Blood erythrocytes automated count (number/volume) 4.25 10*6/uL 4.35-5.85 Venous blood hemoglobin measurement (mass/volume) 13.4 [...] Automated blood platelet mean volume measurement 10.4 [foz_us] 7.4-10.4 Automated blood neutrophils/100 leukocytes 69 % [...] 04:00 Blood leukocytes automated count (number/volume) 4.4 10*3/uL 4.3-11.0 Blood erythrocytes automated count (number/volume) 3.95 10*6/uL 4.35-5.85 Venous blood hemoglobin measurement (mass/volume) 12.4 [...] Automated blood platelet mean volume measurement 9.8 [foz_us] 7.4-10.4 Whole blood basic metabolic panel - 03/17/16 04:00 Serum or plasma sodium measurement (moles/volume) 141 mmol/L 135-145 Serum or plasma potassium measurement (moles/volume) 3.5 mmol/L 3.6-5.0 Serum or plasma chloride measurement (moles/volume) 105 mmol/L 98-107 Carbon dioxide 27 mmol/L 21-32 Serum or plasma anion gap determination (moles/volume) 9 mmol/L 5-14 Serum or plasma urea nitrogen measurement (mass/volume) 24 mg/dL 7-18 Serum or plasma creatinine measurement (mass/volume) 0.72 mg/dL 0.60-1.30 Serum or plasma urea nitrogen/creatinine mass [...] 05:34 Blood leukocytes automated count (number/volume) 4.3 10*3/uL 4.3-11.0 Blood erythrocytes automated count (number/volume) 4.14 10*6/uL 4.35-5.85 Venous blood hemoglobin measurement (mass/volume) 12.8 [...] Automated blood platelet mean volume measurement 9.6 [foz_us] 7.4-10.4 Whole blood basic metabolic panel - 03/18/16 05:34 Serum or plasma sodium measurement (moles/volume) 141 mmol/L 135-145 Serum or plasma potassium measurement (moles/volume) 3.5 mmol/L 3.6-5.0 Serum or plasma chloride measurement (moles/volume) 106 mmol/L 98-107 Carbon dioxide 25 mmol/L 21-32 Serum or plasma anion gap determination (moles/volume) 10 mmol/L 5-14 Serum or plasma urea nitrogen measurement (mass/volume) 16 mg/dL 7-18 Serum or plasma creatinine measurement (mass/volume) 0.65 mg/dL 0.60-1.30 Serum or plasma urea nitrogen/creatinine mass ratio 25 NRG Serum or plasma creatinine measurement with calculation of estimated glomerular filtration rate > NRG Serum or plasma glucose measurement (mass/volume) 97 mg/dL 70-105 Serum or plasma calcium measurement (mass/volume) 8.5 mg/dL 8.5-10.1 Automated blood complete blood count (hemogram) panel - 03/19/16 03:39 Blood leukocytes automated count (number/volume) 3.7 10*3/uL 4.3-11.0 Blood erythrocytes automated count (number/volume) 3.90 10*6/uL 4.35-5.85 Venous blood hemoglobin measurement (mass/volume) 12.2 [...] Automated blood platelet mean volume measurement 10.0 [foz_us] 7.4-10.4 Whole blood basic metabolic panel - 03/19/16 03:39 Serum or plasma sodium measurement (moles/volume) 141 mmol/L 135-145 Serum or plasma potassium measurement (moles/volume) 3.7 mmol/L 3.6-5.0 Serum or plasma chloride measurement (moles/volume) 108 mmol/L 98-107 Carbon dioxide 24 mmol/L 21-32 Serum or plasma anion gap determination (moles/volume) 9 mmol/L 5-14 Serum or plasma urea nitrogen measurement (mass/volume) 15 mg/dL 7-18 Serum or plasma creatinine measurement (mass/volume) 0.68 mg/dL 0.60-1.30 Serum or plasma urea nitrogen/creatinine mass ratio 22 NRG Serum or plasma creatinine measurement with calculation of estimated glomerular filtration rate > NRG Serum or plasma glucose measurement (mass/volume) 89 mg/dL 70-105 Serum or plasma calcium measurement (mass/volume) 8.5 mg/dL 8.5-10.1 25-hydroxyvitamin D measurement - 08/30/16 17:04 25-hydroxy vitamin D measurement 38 % 30-100 Complete blood count (CBC) with automated white blood cell (WBC) differential - 09/09/16 14:38 Blood leukocytes automated count (number/volume) 6.9 10*3/uL 4.3-11.0 Blood erythrocytes automated count (number/volume) 3.58 10*6/uL 4.35-5.85 Venous blood hemoglobin measurement (mass/volume) 11.0 g/dL 11.5-16.0 Blood hematocrit (volume fraction) 35 % 35-52 Automated erythrocyte mean corpuscular volume 99 [foz_us] 80-99 Automated erythrocyte mean corpuscular hemoglobin (mass per erythrocyte) 31 pg 25-34 Automated erythrocyte mean corpuscular hemoglobin concentration measurement ( mass/volume) 31 g/dL 32-36 Automated erythrocyte distribution width ratio 12.6 % 10.0-14.5 Automated blood platelet count (count/volume) 134 10*3/uL 130-400 Automated blood platelet mean volume measurement 9.8 [foz_us] 7.4-10.4 Automated blood neutrophils/100 leukocytes 79 % 42-75 Automated blood lymphocytes/100 leukocytes 9 % 12-44 Blood monocytes/100 leukocytes 11 % 0-12 Automated blood eosinophils/100 leukocytes 1 % 0-10 Automated blood basophils/100 leukocytes 0 % 0-10 Blood neutrophils automated count (number/volume) 5.5 10*3 1.8-7.8 Blood lymphocytes automated count (number/volume) 0.6 10*3 1.0-4.0 Blood monocytes automated count (number/volume) 0.8 10*3 0.0-1.0 Automated eosinophil count 0.1 10*3/uL 0.0-0.3 Automated blood basophil count (count/volume) 0.0 10*3/uL 0.0-0.1 Comprehensive metabolic panel - 09/09/16 14:38 Serum or plasma sodium measurement (moles/volume) 138 mmol/L 135-145 Serum or plasma potassium measurement (moles/volume) 4.4 mmol/L 3.6-5.0 Serum or plasma chloride measurement (moles/volume) 104 mmol/L 98-107 Carbon dioxide 25 mmol/L 21-32 Serum or plasma anion gap determination (moles/volume) 9 mmol/L 5-14 Serum or plasma urea nitrogen measurement (mass/volume) 26 mg/dL 7-18 Serum or plasma creatinine measurement (mass/volume) 0.94 mg/dL 0.60-1.30 Serum or plasma urea nitrogen/creatinine mass ratio 28 NRG Serum or plasma creatinine measurement with calculation of estimated glomerular filtration rate 57 NRG Serum or plasma glucose measurement (mass/volume) 163 mg/dL 70-105 Serum or plasma calcium measurement (mass/volume) 9.4 mg/dL 8.5-10.1 Serum or plasma total bilirubin measurement (mass/volume) 0.5 mg/dL 0.1-1.0 Serum or plasma alkaline phosphatase measurement (enzymatic activity/volume) 64 U/L 40-136 Serum or plasma aspartate aminotransferase measurement (enzymatic activity/ volume) 20 U/L 5-34 Serum or plasma alanine aminotransferase measurement (enzymatic activity/volume ) < U/L 0-55 Serum or plasma protein measurement (mass/volume) 6.0 g/dL 6.4-8.2 Serum or plasma albumin measurement (mass/volume) 3.5 g/dL 3.2-4.5 Magnesium - 09/09/16 14:38 Magnesium 2.0 mg/dL 1.8-2.4 PT panel in platelet poor plasma by coagulation assay - 09/09/16 14:38 Prothrombin time (PT) in platelet poor plasma by coagulation assay 12.3 s 12.2-14.7 INR in platelet poor plasma or blood by coagulation assay 0.9 0.8-1.4 Activated partial thromboplastin time (aPTT) in platelet poor plasma bycoagulation assay - 09/09/16 14:38 Activated partial thromboplastin time (aPTT) in platelet poor plasma bycoagulation assay 20 s 24-35 Serum or plasma troponin i.cardiac measurement (mass/volume) - 09/09/16 14:38 Serum or plasma troponin i.cardiac measurement (mass/volume) < ng/ mL <0.30 Myoglobin, serum - 09/09/16 14:38 Myoglobin, serum 68.1 ng/mL 10.0-92.0 Complete urinalysis with reflex to culture - 09/09/16 15:49 Urine color determination YELLOW NRG Urine clarity determination CLEAR NRG Urine pH measurement by test strip 6 5-9 Specific gravity of urine by test strip 1.020 1.016- 1.022 Urine protein assay by test strip, semi-quantitative 2+ NEGATIVE Urine glucose detection by automated test strip NEGATIVE NEGATIVE Erythrocytes detection in urine sediment by light microscopy NEGATIVE NEGATIVE Urine ketones detection by automated test strip NEGATIVE NEGATIVE Urine nitrite detection by test strip NEGATIVE NEGATIVE Urine total bilirubin detection by test strip NEGATIVE NEGATIVE Urine urobilinogen measurement by automated test strip (mass/volume) NORMAL NORMAL Urine leukocyte esterase detection by dipstick 3+ NEGATIVE Automated urine sediment erythrocyte count by microscopy (number/high power field) [HPF] NRG Automated urine sediment leukocyte count by microscopy (number/high power field ) [HPF] NRG Bacteria detection in urine sediment by light microscopy FEW NRG Squamous epithelial cells detection in urine sediment by light microscopy 2-5 NRG Crystals detection in urine sediment by light microscopy NONE NRG Casts detection in urine sediment by light microscopy PRESENT NRG Mucus detection in urine sediment by light microscopy SMALL NRG Complete urinalysis with reflex to culture YES NRG Hyaline casts detection in urine sediment by light microscopy 10-25 NRG Bacterial urine culture - 09/09/16 15:49 URINE CULTURE RESULTS <10,000/ML NRG Automated blood complete blood count (hemogram) panel - 06/08/17 05:48 Blood leukocytes automated count (number/volume) 5.7 10*3/uL 4.3-11.0 Blood erythrocytes automated count (number/volume) 3.95 10*6/uL 4.35-5.85 Venous blood hemoglobin measurement (mass/volume) 12.2 g/dL 11.5-16.0 Blood hematocrit (volume fraction) 38 % 35-52 Automated erythrocyte mean corpuscular volume 95 [foz_us] 80-99 Automated erythrocyte mean corpuscular hemoglobin (mass per erythrocyte) 31 pg 25-34 Automated erythrocyte mean corpuscular hemoglobin concentration measurement ( mass/volume) 32 g/dL 32-36 Automated erythrocyte distribution width ratio 12.7 % 10.0-14.5 Automated blood platelet count (count/volume) 137 10*3/uL 130-400 Automated blood platelet mean volume measurement 10.1 [foz_us] 7.4-10.4 Comprehensive metabolic panel - 06/08/17 05:48 Serum or plasma sodium measurement (moles/volume) 138 mmol/L 135-145 Serum or plasma potassium measurement (moles/volume) 4.4 mmol/L 3.6-5.0 Serum or plasma chloride measurement (moles/volume) 102 mmol/L 98-107 Carbon dioxide 27 mmol/L 21-32 Serum or plasma anion gap determination (moles/volume) 9 mmol/L 5-14 Serum or plasma urea nitrogen measurement (mass/volume) 18 mg/dL 7-18 Serum or plasma creatinine measurement (mass/volume) 0.74 mg/dL 0.60-1.30 Serum or plasma urea nitrogen/creatinine mass ratio 24 NRG Serum or plasma creatinine measurement with calculation of estimated glomerular filtration rate > NRG Serum or plasma glucose measurement (mass/volume) 96 mg/dL 70-105 Serum or plasma calcium measurement (mass/volume) 9.4 mg/dL 8.5-10.1 Serum or plasma total bilirubin measurement (mass/volume) 0.8 mg/dL 0.1-1.0 Serum or plasma alkaline phosphatase measurement (enzymatic activity/volume) 67 U/L 40-136 Serum or plasma aspartate aminotransferase measurement (enzymatic activity/ volume) 29 U/L 5-34 Serum or plasma alanine aminotransferase measurement (enzymatic activity/volume ) 11 U/L 0-55 Serum or plasma protein measurement (mass/volume) 5.5 g/dL 6.4-8.2 Serum or plasma albumin measurement (mass/volume) 3.6 g/dL 3.2-4.5 Complete blood count (CBC) with automated white blood cell (WBC) differential - 09/13/17 17:45 Blood leukocytes automated count (number/volume) 5.2 10*3/uL 4.3-11.0 Blood erythrocytes automated count (number/volume) 4.45 10*6/uL 4.35-5.85 Venous blood hemoglobin measurement (mass/volume) 12.3 g/dL 11.5-16.0 Blood hematocrit (volume fraction) 40 % 35-52 Automated erythrocyte mean corpuscular volume 89 [foz_us] 80-99 Automated erythrocyte mean corpuscular hemoglobin (mass per erythrocyte) 28 pg 25-34 Automated erythrocyte mean corpuscular hemoglobin concentration measurement ( mass/volume) 31 g/dL 32-36 Automated erythrocyte distribution width ratio 15.4 % 10.0-14.5 Automated blood platelet count (count/volume) 123 10*3/uL 130-400 Automated blood platelet mean volume measurement 10.2 [foz_us] 7.4-10.4 Automated blood neutrophils/100 leukocytes 65 % 42-75 Automated blood lymphocytes/100 leukocytes 21 % 12-44 Blood monocytes/100 leukocytes 12 % 0-12 Automated blood eosinophils/100 leukocytes 2 % 0-10 Automated blood basophils/100 leukocytes 0 % 0-10 Blood neutrophils automated count (number/volume) 3.4 10*3 1.8-7.8 Blood lymphocytes automated count (number/volume) 1.1 10*3 1.0-4.0 Blood monocytes automated count (number/volume) 0.6 10*3 0.0-1.0 Automated eosinophil count 0.1 10*3/uL 0.0-0.3 Automated blood basophil count (count/volume) 0.0 10*3/uL 0.0-0.1 PT panel in platelet poor plasma by coagulation assay - 09/13/17 17:45 Prothrombin time (PT) in platelet poor plasma by coagulation assay 14.3 s 12.2-14.7 INR in platelet poor plasma or blood by coagulation assay 1.1 0.8-1.4 Activated partial thromboplastin time (aPTT) in platelet poor plasma bycoagulation assay - 09/13/17 17:45 Activated partial thromboplastin time (aPTT) in platelet poor plasma bycoagulation assay 27 s 24-35 Comprehensive metabolic panel - 09/13/17 17:45 Serum or plasma sodium measurement (moles/volume) 142 mmol/L 135-145 Serum or plasma potassium measurement (moles/volume) 4.3 mmol/L 3.6-5.0 Serum or plasma chloride measurement (moles/volume) 105 mmol/L 98-107 Carbon dioxide 27 mmol/L 21-32 Serum or plasma anion gap determination (moles/volume) 10 mmol/L 5-14 Serum or plasma urea nitrogen measurement (mass/volume) 24 mg/dL 7-18 Serum or plasma creatinine measurement (mass/volume) 0.93 mg/dL 0.60-1.30 Serum or plasma urea nitrogen/creatinine mass ratio 26 NRG Serum or plasma creatinine measurement with calculation of estimated glomerular filtration rate 58 NRG Serum or plasma glucose measurement (mass/volume) 104 mg/dL 70-105 Serum or plasma calcium measurement (mass/volume) 9.4 mg/dL 8.5-10.1 Serum or plasma total bilirubin measurement (mass/volume) 0.6 mg/dL 0.1-1.0 Serum or plasma alkaline phosphatase measurement (enzymatic activity/volume) 59 U/L 40-136 Serum or plasma aspartate aminotransferase measurement (enzymatic activity/ volume) 30 U/L 5-34 Serum or plasma alanine aminotransferase measurement (enzymatic activity/volume ) 10 U/L 0-55 Serum or plasma protein measurement (mass/volume) 5.9 g/dL 6.4-8.2 Serum or plasma albumin measurement (mass/volume) 3.7 g/dL 3.2-4.5 Complete urinalysis with reflex to culture - 09/13/17 18:03 Urine color determination YELLOW NRG Urine clarity determination CLEAR NRG Urine pH measurement by test strip 6 5-9 Specific gravity of urine by test strip 1.025 1.016- 1.022 Urine protein assay by test strip, semi-quantitative 1+ NEGATIVE Urine glucose detection by automated test strip NEGATIVE NEGATIVE Erythrocytes detection in urine sediment by light microscopy 1+ NEGATIVE Urine ketones detection by automated test strip 1+ NEGATIVE Urine nitrite detection by test strip NEGATIVE NEGATIVE Urine total bilirubin detection by test strip NEGATIVE NEGATIVE Urine urobilinogen measurement by automated test strip (mass/volume) 1 mg/dL NORMAL Urine leukocyte esterase detection by dipstick NEGATIVE NEGATIVE Automated urine sediment erythrocyte count by microscopy (number/high power field) NONE NRG Automated urine sediment leukocyte count by microscopy (number/high power field ) NONE NRG Bacteria detection in urine sediment by light microscopy NEGATIVE NRG Crystals detection in urine sediment by light microscopy NONE NRG Casts detection in urine sediment by light microscopy PRESENT NRG Mucus detection in urine sediment by light microscopy SMALL NRG Complete urinalysis with reflex to culture NO NRG Hyaline casts detection in urine sediment by light microscopy RARE NRG Encounters ACCT No. Visit Date/Time Discharge Status Pt. Type Provider Facility Loc./Unit Complaint [id number] 09/13/2017 19:36:00 09/20/2017 13:05:00 DIS Inpatient MIKY SHARMA, NICOLE Feng [facility] 4TH R SUPERIOR PUBIC RAMUS FRACTURE, PARKINSINS [id number] 08/29/2017 10:21:00 09/01/2017 09:12:00 DIS Outpatient MILENA ISAACS [facility] ONC [id number] 06/07/2017 08:00:00 06/13/2017 13:45:00 DIS Inpatient TEREZA SHARMA, ELOISE Zurita [facility] IRF PARKINSON'S DISEASE [id number] 05/17/2017 10:38:00 05/17/2017 23:59:59 CLS Outpatient Ottoniel CATHERINE MD [facility] CARD N18.3 CKD [id number] 11/18/2016 09:51:00 11/18/2016 23:59:59 CLS Outpatient Ottoniel CATHERINE MD [facility] CARD I73.9 [id number] 11/18/2016 09:50:00 11/18/2016 23:59:59 CLS Outpatient Ottoniel CATHERINE MD [facility] RAD I73.9 [id number] 08/30/2016 11:01:00 10/19/2016 00:01:00 DIS Outpatient MILENA ISAACS [facility] ONC [id number] 09/09/2016 14:11:00 09/09/2016 17:04:00 DIS Emergency BEV DAIGLE DO [facility] ER CONFUSION/THOUGH PROCESS IN LAST 20 MIN [id number] 09/09/2016 15:00:00 09/09/2016 15:00:00 CAN Preadmit Ottoniel CATHERINE MD [facility] CARD I73.9 CLAUDICATION [id number] 07/05/2016 12:03:00 07/05/2016 23:59:59 CLS Outpatient Ottoniel CATHERINE MD [facility] CARD I42.0 [id number] 04/19/2016 11:52:00 04/19/2016 23:59:59 CLS Outpatient SCOTTY YBARRA DO [facility] RAD SOB [id number] 03/12/2016 08:30:00 03/23/2016 10:54:00 DIS Outpatient KENDRA COYLE APRN [facility] REHAB R ARM PAIN [id number] 03/15/2016 17:40:00 03/19/2016 12:00:00 DIS Inpatient NICOLE BOLAÑOS MD [facility] CSD CHF,NEW LBBB,HTN,CHEST PAIN [id number] 07/28/2015 13:19:00 10/20/2015 00:01:00 DIS Outpatient MILENA ISAACS [facility] ONC [id number] 02/28/2015 09:15:00 02/28/2015 09:52:00 DIS Outpatient NICOLE BOLAÑOS MD [facility] REHAB R ARM PAIN [id number] 10/29/2014 12:03:00 12/11/2014 00:01:00 DIS Outpatient MILENA ISAACS [facility] ONC LAB [id number] 08/01/2014 13:41:00 10/24/2014 00:01:00 DIS Outpatient MILENA ISAACS [facility] ONC LAB [id number] 08/20/2014 12:33:00 08/20/2014 23:59:59 CLS Outpatient HECTOR ENGLEP [facility] LAB [id number] 08/09/2014 18:11:00 08/09/2014 22:55:00 DIS Emergency NGOC SHARMA, MARIS Hammonds [facility] ER DIFFICULTY BREATING [id number] 07/22/2014 11:25:00 07/26/2014 15:51:00 DIS Outpatient KRIS URIOSTEGUI MD [facility] REHAB R FROZEN SHOULDER [id number] 06/25/2014 14:50:00 07/16/2014 11:05:00 DIS Outpatient DOMINICK CARUSO MD [facility] REHAB LEG WEAKNESS DUE TO PARKINSONS [id number] 06/17/2014 15:35:00 06/17/2014 23:59:59 CLS Outpatient DOMINICK CARUSO MD [facility] LAB [id number] 06/11/2014 13:44:00 06/11/2014 23:59:59 CLS Outpatient BRITTANY DIXON [facility] AIDE [facility] ONC [id number] 06/03/2014 14:44:00 06/03/2014 23:59:59 CLS Outpatient DOMINICK CARUSO MD [facility] LAB [id number] 07/30/2013 13:14:00 10/28/2013 00:01:00 DIS Outpatient MILENA ISAACS [facility] ONC LAB [id number] 10/25/2013 13:30:00 10/25/2013 23:59:59 CLS Outpatient DOMINICK CARUSO MD [facility] REHAB PARKINSON [id number] 09/12/2013 12:10:00 09/12/2013 23:59:59 CLS Outpatient DOMINICK CARUSO MD [facility] HYPONATREMIA [id number] 09/06/2013 13:30:00 09/06/2013 23:59:59 CLS Outpatient DOMINICK CARUSO MD [facility] HYPONATREMIA [id number] 08/28/2013 10:00:00 08/28/2013 23:59:59 CLS Outpatient DOMINICK CARUSO MD [facility] HYPONATREMIA [id number] 08/07/2013 13:31:00 08/22/2013 13:30:00 DIS Inpatient ELOISE STARKS MD [facility] IRF IRF-WEAKNESS [id number] 08/05/2013 12:31:00 08/07/2013 13:30:00 DIS Inpatient DOMINICK CARUSO MD [facility] 4TH WEAKNESS [id number] 07/04/2013 09:45:00 07/19/2013 12:10:00 DIS Outpatient DOMINICK CARUSO MD [facility] REHAB PARKINSONS, GAIT/ BALANCE [id number] 05/23/2013 11:08:00 05/23/2013 23:59:59 CLS Outpatient DARWIN LESTER MD [facility] RAD NPH [id number] 02/15/2013 14:00:00 02/15/2013 23:59:59 CLS Outpatient DOMINICK CARUSO MD [facility] RT SOB [id number] 11/14/2012 14:36:00 11/14/2012 23:59:59 CLS Outpatient DOMINICK CARUSO MD [facility] RAD SOB [id number] 08/03/2012 12:56:00 09/04/2012 00:01:00 DIS Outpatient MILENA ISAACS [facility] ONC LAB [id number] 09/23/2017 01:18:00 ACT Emergency NGOC SHARMA, MARIS Hammonds [facility] [id number] 05/13/2017 12:31:00 Document Registration [id number] 06/06/2012 08:31:00 Document Registration [id number] 09/21/2011 08:22:00 Document Registration [id number] 12/21/2006 08:48:00 Document Registration [id number] 05/03/2016 09:39:00 08/20/2016 10:30:00 DIS Outpatient Abisai Lopes [id number] 04/27/2016 10:01:00 04/27/2016 23:59:00 DIS Outpatient NICOLE BOLAÑOS [id number] 01/31/2017 23:41:24 01/31/2017 23:59:59 CLS Outpatient
[2017-09-23 01:59] LABS: BASOPHILS % (AUTO) 0 % (0-10); EOSINOPHILS # (AUTO) 0.1 10^3/uL (0.0-0.3); EOSINOPHILS % (AUTO) 1 % (0-10); HEMATOCRIT 38 % (35-52); HEMOGLOBIN 12.1 G/DL (11.5-16.0); LYMPHOCYTES # (AUTO) 0.8 X 10^3 (1.0-4.0); LYMPHOCYTES % (AUTO) 10 % (12-44); MEAN CORPUSCULAR HEMOGLOBIN 28 PG (25-34); MEAN CORPUSCULAR HGB CONC 32 G/DL (32-36); MEAN CORPUSCULAR VOLUME 87 FL (80-99); MEAN PLATELET VOLUME 9.4 FL (7.4-10.4); MONOCYTES # (AUTO) 0.9 X 10^3 (0.0-1.0); MONOCYTES % (AUTO) 12 % (0-12); NEUTROPHILS # (AUTO) 5.8 X 10^3 (1.8-7.8); NEUTROPHILS % (AUTO) 76 % (42-75); PLATELET COUNT 216 10^3/uL (130-400); RED BLOOD COUNT 4.31 10^6/uL (4.35-5.85); RED CELL DISTRIBUTION WIDTH 16.1 % (10.0-14.5); WHITE BLOOD COUNT 7.6 10^3/uL (4.3-11.0)
[2017-09-23 02:10] LABS: INR 1.1 (0.8-1.4); PROTHROMBIN TIME PATIENT 13.9 SEC (12.2-14.7)
[2017-09-23 02:20] LABS: ALANINE AMINOTRANSFERASE 14 U/L (0-55); ALBUMIN 3.5 GM/DL (3.2-4.5); ALKALINE PHOSPHATASE 127 U/L (40-136); BILIRUBIN,TOTAL 0.5 MG/DL (0.1-1.0); BUN/CREATININE RATIO 32; CALCIUM 10.1 MG/DL (8.5-10.1); CARBON DIOXIDE 27 MMOL/L (21-32); CHLORIDE 97 MMOL/L (98-107); CREATININE SERUM 0.81 MG/DL (0.60-1.30); GFR ESTIMATED > 60; GLUCOSE 121 MG/DL (70-105); POTASSIUM 4.4 MMOL/L (3.6-5.0); SODIUM 134 MMOL/L (135-145); TOTAL PROTEIN 6.3 GM/DL (6.4-8.2)
[2017-09-23 02:29] LABS: MYOGLOBIN SERUM 96.2 NG/ML (10.0-92.0)
[2017-09-23] MEDS ORDERED: HYDROcodone/APAP 5 MG/325 MG (LORTAB) TAB PO ONE (02:30)
[2017-09-23] MEDS ORDERED: IOHEXOL 350 MG/ML 150 ML (OMNIPAQUE 350) VIAL IV ONE (02:45)
[2017-09-23] MEDS ORDERED: NS 250 ML (IVPB) BAG IV ONE (02:45)
--- NOTE | 2017-09-23 04:47 | ED Chest Pain ---
General Chief Complaint: Chest Wall/Rib Pain Stated Complaint: CP Nursing Triage Note: CHEST WALL PAIN RADIATING TO LEFT SHOULDER STARTING APPROX. 0030 Nursing Sepsis Screen: No Definite Risk Source: patient Exam Limitations: no limitations History of Present Illness Date Seen by Provider: Sep 23, 2017 Time Seen by Provider: 01:18 Initial Comments This 82-year-old woman presents to the emergency room via EMS with complaints of left upper chest wall pain that is reproducible to palpation. Pain started around 00:30 after belching. She is noted to be tachypneic. Patient states a history of coronary artery disease. She also had a fall in September 13 and was admitted for a pelvic fracture at that time. Patient does not recall injuring her chest without fall. Patient denies any new trauma since that fall. Allergies and Home Medications Allergies Coded Allergies: Penicillins (Verified Allergy, Mild, 08/05/13) Home Medications Alprazolam 0.25 Mg Tablet, 0.5 TAB PO BID Prescribed by: NICOLE BONDS on 09/20/17851 Aspirin 81 Mg Tablet.dr, 81 MG PO We, (Reported) TAKES AT NOON Calcium Carbonate/Vitamin D3 1 Each Tablet, 1 TAB PO DAILY, (Reported) Carbidopa/Levodopa 1 Each Tablet, 2 TAB PO BID, (Reported) Carbidopa/Levodopa 1 Each Tablet, 3 TAB PO 1200, (Reported) Cholecalciferol (Vitamin D3) 400 Unit Tablet, 400 UNIT PO DAILY, (Reported) Docusate Sodium 100 Mg Capsule, 100 MG PO BID Prescribed by: NICOLE BONDS on 09/20/17851 Furosemide 20 Mg Tablet, 20 MG PO UD PRN for WEIGHT GAIN >2.5-3 POUNDS, ( Reported) TAKE THREE TIMES A WEEK NEEDED FOR WEIGHT GAIN GREATER THAN 2.5-3 POUNDS Hydrocodone Bit/Acetaminophen 1 Tab Tab, 0.5 TAB PO TID 1/2 tab tid and 1 tab po q 4 hours prn uncontrolled pelvic fx pain Prescribed by: NICOLE BONDS on 09/20/17851 Metoprolol Tartrate 25 Mg Tablet, 12.5 MG PO BID, (Reported) TAKES 1/2 (25MG) TABLET Multivitamin 1 Each Tablet, 1 TAB PO DAILY, (Reported) Nitroglycerin 0.4 Mg Tab.subl, 0.4 MG SL UD PRN for CHEST PAIN, (Reported) Orwell-3 Fatty Acids 1,000 Mg Capsule, 1,000 MG PO DAILY, (Reported) Omeprazole 20 Mg Capsule.dr, 20 MG PO BID, (Reported) Potassium Chloride 20 Meq Tab.er.prt, 20 MEQ PO DAILY PRN for WHEN TAKING FUROSEMIDE, (Reported) Rasagiline Mesylate 1 Mg Tablet, 1 MG PO DAILY, (Reported) Sertraline HCl 50 Mg Tablet, 50 MG PO HS, (Reported) Spironolactone 25 Mg Tablet, 25 MG PO DAILY, (Reported) Vitamin B Complex & Vit C No.4 150 Mg Tablet, 150 MG PO DAILY, (Reported) [Calcitonin] 3.7 ML SOLN, 0 ML NA DAILY pt to use one spray per one nostril alternate nostrils daily. use medication 2 weeks then stop Prescribed by: NICOLE BONDS on 09/20/17 0852 Patient Home Medication List Home Medication List Reviewed: Yes Review of Systems Constitutional: no symptoms reported EENTM: No Symptoms Reported Respiratory: See HPI Cardiovascular: See HPI Gastrointestinal: No Symptoms Reported Genitourinary: No Symptoms Reported Musculoskeletal: see HPI Skin: no symptoms reported Psychiatric/Neurological: No Symptoms Reported Endocrine: No Symptoms Reported Past [id number] Hx Patient Social History Alcohol Use: Denies Use Recreational Drug Use: No Smoking Status: Never a Smoker 2nd Hand Smoke Exposure: No Recent Foreign Travel: No Contact w/Someone Who Travel: No Recent Infectious Disease Expo: No Recent Hopitalizations: Yes (FALL PELVIC FX) Immunizations Up To Date Tetanus Booster (TDap): Unknown PED Vaccines UTD: No Date of Influenza Vaccine: Feb 07, 2017 Seasonal Allergies Seasonal Allergies: No Past Medical History Surgeries: Yes Abdominal, Appendectomy, Breast, Gallbladder, Hysterectomy, Oophorectomy Respiratory: Yes COPD Currently Using CPAP: No Currently Using BIPAP: No Cardiac: Yes High Cholesterol, Hypertension Neurological: Yes Parkinson's Disease Reproductive Disorders: No Female Reproductive Disorders: Denies Sexually Transmitted Disease: No HIV/AIDS: No Genitourinary: Yes (URGENCY) Gastrointestinal: Yes Gastroesophageal Reflux Musculoskeletal: Yes (CHRONIC NECK AND SHOULDER PAIN) Chronic Back Pain Endocrine: No HEENT: Yes Cataract Cancer: Yes Breast, Colon Psychosocial: No Integumentary: No Blood Disorders: No Adverse Reaction/Blood Tranf: No Family Medical History Cancer 19 FATHER (BLADDER) 19 MOTHER (LIVER ) Myocardial infarction 19 MOTHER Parkinson's disease 19 FATHER Cancer Physical Exam Vital Signs Vital Signs - First Documented Capillary Refill : Less Than 3 Seconds Height, Weight, BMI Height: 5'9.00" Weight: 136lbs. 2.0oz. 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 Norm as Tested, Other (tremor from Parkinson's) Skin: Normal Color, Warm/Dry Progress/Results/Core Measures Results/Orders Lab Results Laboratory Tests Test 09/23/17 01:45 Range/Units White Blood Count 7.6 4.3-11.0 10^3/uL Red Blood Count 4.31 L 4.35-5.85 10^6/uL Hemoglobin 12.1 11.5-16.0 G/DL Hematocrit 38 35-52 % Mean Corpuscular Volume 87 80-99 FL Mean Corpuscular Hemoglobin 28 25-34 PG Mean Corpuscular Hemoglobin Concent 32 32-36 G/DL Red Cell Distribution Width 16.1 H 10.0-14.5 % Platelet Count 216 130-400 10^3/uL Mean Platelet Volume 9.4 7.4-10.4 FL Neutrophils (%) (Auto) 76 H 42-75 % Lymphocytes (%) (Auto) 10 L 12-44 % Monocytes (%) (Auto) 12 0-12 % Eosinophils (%) (Auto) 1 0-10 % Basophils (%) (Auto) 0 0-10 % Neutrophils # (Auto) 5.8 1.8-7.8 X 10^3 Lymphocytes # (Auto) 0.8 L 1.0-4.0 X 10^3 Monocytes # (Auto) 0.9 0.0-1.0 X 10^3 Eosinophils # (Auto) 0.1 0.0-0.3 10^3/uL Basophils # (Auto) 0.0 0.0-0.1 10^3/uL Prothrombin Time 13.9 12.2-14.7 SEC INR Comment 1.1 0.8-1.4 Activated Partial Thromboplast Time 28 24-35 SEC Sodium Level 134 L 135-145 MMOL/L Potassium Level 4.4 3.6-5.0 MMOL/L Chloride Level 97 L 98-107 MMOL/L Carbon Dioxide Level 27 21-32 MMOL/L Anion Gap 10 5-14 MMOL/L Blood Urea Nitrogen 26 H 7-18 MG/DL Creatinine 0.81 0.60-1.30 MG/DL Estimat Glomerular Filtration Rate > 60 BUN/Creatinine Ratio 32 Glucose Level 121 H 70-105 MG/DL Calcium Level 10.1 8.5-10.1 MG/DL Magnesium Level 2.0 1.8-2.4 MG/DL Total Bilirubin 0.5 0.1-1.0 MG/DL Aspartate Amino Transf (AST/SGOT) 33 5-34 U/L Alanine Aminotransferase (ALT/SGPT) 14 0-55 U/L Alkaline Phosphatase 127 40-136 U/L Myoglobin 96.2 H 10.0-92.0 NG/ML Troponin I < 0.30 <0.30 NG/ML Total Protein 6.3 L 6.4-8.2 GM/DL Albumin 3.5 3.2-4.5 GM/DL Lipase 15 8-78 U/L My Orders Orders - MARIS GROSSMAN MD Cbc With Automated Diff (09/23/17:) Magnesium (09/23/17:24) Chest 1 View, Ap/Pa Only (09/23/17:24) Ekg Tracing (09/23/17:24) Cardiac Profile 1 (09/23/17:24) Comprehensive Metabolic Panel (09/23/17:24) Myoglobin Serum (09/23/1724) Protime With Inr (09/23/17:24) Partial Thromboplastin Time (09/23/17:24) O2 (09/23/17:24) Monitor-Rhythm Ecg Trace Only (09/23/17:24) Lipid Panel (09/24/17 06:00) Saline Lock/Iv-Start (09/23/17 01:24) Lipase (09/23/17 01:25) Hydrocodone/Apap 5/325 Tablet (Lortab 5 (09/23/17 02:30) Ct Ro Chest/Noang Abd-Pelv W (09/23/17 02:31) Iohexol Injection (Omnipaque 350 Mg/Ml 1 (09/23/17 02:45) Ns (Ivpb) (Sodium Chloride 0.9%) (09/23/17 02:45) Medications Given in ED Current Medications Medications Dose Ordered Sig/Shayne Route Start Time Stop Time Status Last Admin Dose Admin Acetaminophen/ Hydrocodone Bitart 0.5 tab ONCE ONCE PO 09/23/17 02:30 09/23/17 02:32 DC 09/23/17 02:37 0.5 TAB Iohexol 125 ml ONCE ONCE IV 09/23/17 02:45 09/23/17 02:46 DC 09/23/17 03:08 125 ML Sodium Chloride 250 ml ONCE ONCE IV 09/23/17 02:45 09/23/17 02:46 DC 09/23/17 03:08 80 ML Vital Signs/I&O 09/23/17 09/23/17 09/23/17 01:20 01:20 04:47 Temp 97.9 Pulse 104 Resp 18 B/P (MAP) 127/77 (94) Pulse Ox 100 100 O2 Delivery Nasal Cannula Nasal Cannula Nasal Cannula O2 Flow Rate 3.00 3.00 2.00 Blood Pressure Mean: 94 Progress Progress Note : Progress Note Cardiac workup was unremarkable. There were no major changes on her chest x- ray was compared with prior. Patient did request something for pain. She has been receiving one half tablet of hydrocodone 5/325. She was given a dose in the emergency room. CT scan of the chest and abdomen was performed to further evaluate patient's pain. Abdomen was included due to the mild tenderness in the epigastrium. CT showed fractures of the right anterior second rib and left anterior third rib. The left rib fracture correlates well with her location of pain. Patient has a hiatal hernia which could explain her epigastric discomfort. Patient felt much better after receiving hydrocodone. Instructions for her dosing frequency of hydrocodone at the alf were changed to give her better pain control. An incentive spirometer was dispensed with the patient and education on use was provided. Pleural effusions were noted on the chest x-ray. It is noted that patient does have a Lasix order on her medications. This may need to be adjusted. Patient was returned to [facility] via EMS. Initial ECG Impression Date: Sep 23, 2017 Initial ECG Impression Time: 01:20 Initial ECG Rate: 102 Initial ECG Rhythm: S.Tach Comment Sinus tachycardia with no acute ST elevation or depression. Chronic left bundle branch block is unchanged from prior. Diagnostic Imaging Diagonstic Imaging: Xray Plain Films/CT/US/NM/MRI: chest Comments Chest x-ray viewed by me. Report not yet available. Compared with prior. No significant acute cardiopulmonary changes were identified. Diagonstic Imaging: CT Plain Films/CT/US/NM/MRI: chest, abdomen, pelvis Comments CT angiogram of the chest with non-angiogram CT of the abdomen and pelvis with contrast was viewed by me. [employer] report reviewed. No pulmonary emboli were identified. There were small bilateral pleural effusions. Increased interstitial markings could be related to some pulmonary edema. There is cardiomegaly. Fractures of the right second and left third of the ribs were identified. There was a hiatal hernia versus esophageal diverticulum noted on the right side of the chest. Abdomen demonstrated hepatomegaly. There was diverticulosis without diverticulitis. Fractures of the right superior and inferior pubic rami and fractures of the sacrum bilaterally were noted. Departure Impression Primary Impression: Rib fractures Qualified Codes: S22.43XD - Multiple fractures of ribs, bilateral, subsequent encounter for fracture with routine healing Additional Impressions: Chest wall pain Pleural effusion Disposition: HOME, SELF-CARE Condition: Improved Departure-Patient Inst. Decision time for Depature: 04:30 Referrals: NICOLE BONDS MD (PCP/Family) Primary Care Physician Patient Instructions: Rib Fracture (DC) Add. Discharge Instructions: Use the incentive spirometer at least 10 times per hour while awake. Exercise deep breathing often. Follow-up with Dr. Bonds as soon as possible. Increase the scheduled hydrocodone 5/325 to one half tablet 4 times a day instead of 3 times a day. Add acetaminophen 325 mg 4 times a day to be taken with each dose of scheduled hydrocodone. Return to care if symptoms worsen. All discharge instructions reviewed with patient and/or family. Voiced understanding. Copy Copies To 1: NICOLE BONDS MD, JOSHUA T MD Sep 23, 2017 04:47
[2017-09-23 04:58] VITALS: BP 113/73
--- NOTE | 2017-09-23 06:39 | Diagnostic Imaging Report ---
INDICATION: Chest wall pain. COMPARISON: 09/14/2015 FINDINGS: Single frontal radiographic view of the chest was obtained and demonstrates mild cardiomegaly. Pulmonary vasculature, however, is within normal limits. There is obscuration of the left hemidiaphragm. Pleural effusion seen on followup CT chest is inconspicuous on this exam. There is no focal consolidation or pneumothorax on either side. Bony structures show no gross acute abnormalities. IMPRESSION: 1. Mild cardiomegaly. 2. Bilateral pleural effusions. Dictated by: Dictated on workstation # [id number]
--- NOTE | 2017-09-23 07:32 | Diagnostic Imaging Report ---
INDICATION: Chest wall pain with radiation to left shoulder. Recent pelvic fracture. COMPARISON: 09/13/2017 and 04/19/2016 TECHNIQUE: Postcontrast CTA of the chest was performed. Contrast bolus was timed for optimal opacification of the arterial structures. Multiplanar and 3-D reformats were also performed and reviewed. Additionally, postcontrast CT of the abdomen and pelvis was subsequently performed. FINDINGS: CTA of the chest: Cardiomediastinal structures show marked cardiomegaly. There is no large pericardial effusion. Contrast bolus predominantly opacifies the pulmonary arteries. There is no evidence of acute pulmonary embolus to the first subsegmental division of the pulmonary arteries. Thoracic aorta shows mild calcification, but is otherwise normal in course and caliber. There is abnormal moderate distention of the esophagus. Large outpouching is also identified extending laterally from the distal esophagus and may be on the basis of a large esophageal diverticulum. Esophageal wall is not well evaluated secondary to CT modality, but there does appear to be tapered narrowing with relative soft esophageal wall thickness of the distal esophagus near the GE junction. No abnormal mesenteric or retroperitoneal adenopathy is seen. Lung epps show moderate bilateral pleural effusions and associated atelectasis. There is suggestion of small juxtapleural micronodule within the lateral margins of the right lower lobe that measures 3 mm (image 120, series 3). This appears to be stable when compared to 04/19/2016. Other small pulmonary nodules may be obscured. There is no pneumothorax. Osseous structures show age-indeterminate fractures of the anterior aspects of the right second and left third ribs. CT abdomen: There is colonic diverticulosis, but no CT evidence of acute diverticulitis. Postsurgical changes of previous partial right hemicolectomy are noted. Small bowel loops are nondistended. Liver is enlarged. Multiple hypodense liver cysts are noted. Small benign-appearing left renal cysts are also noted. Otherwise, the kidneys, adrenal glands, spleen, pancreas, and liver have an unremarkable appearance. There is no loculated fluid collection, free fluid, nor free air within the abdomen. No abnormal mesenteric or retroperitoneal adenopathy is seen. Bony structures show no acute abnormalities. CT pelvis: Small amount of gas is noted within the non-gravity dependent portion of the urinary bladder. There is no loculated fluid collection, free fluid, nor free air within the pelvis. No abnormal adenopathy is seen. Mild presacral edema is noted. Evaluation of the osseous structures demonstrates interval increase in conspicuous appearance of the right sacral ala fracture. There is also now conspicuous left sacral ala fracture. Redemonstration of right anterior acetabular and right inferior pubic ramus fracture is also noted. IMPRESSION: 1. Severe cardiomegaly, but no evidence of acute pulmonary embolus. 2. Abnormal appearance of the esophagus as described above. This does raise concern for distal esophageal stricture. Underlying malignancy cannot be excluded. Correlation with esophagram is recommended. 3. Moderate bilateral pleural effusions and associated atelectasis. 4. Stable small micronodule within the right lower lobe. Additional micronodules may be obscured. 5. Colonic diverticulosis, but no CT evidence of acute diverticulitis. 6. Benign-appearing hepatic and left renal cysts. 7. Small amount of gas within the lumen of the urinary bladder. Correlation for recent instrumentation is recommended. Alternatively, findings can be seen with gas-forming cystitis. 8. Redemonstration of multiple pelvic fractures. Again, bilateral SI fractures are more conspicuous on today's exam. Patient may benefit from sacral plasty. Dictated by: Dictated on workstation # [id number]
== END 2017-09-23 04:59 | disposition home or self-care (01) ==
LOC: EDUNIT# 01:16 → ER 01:18
DX: S22.43XA Multiple fractures of ribs, bilateral, initial encounter for closed fracture (principal); J44.9 Chronic obstructive pulmonary disease, unspecified; E78.00 Pure hypercholesterolemia, unspecified; I25.10 Atherosclerotic heart disease of native coronary artery without angina pectoris; I10 Essential (primary) hypertension; G20 Parkinson's disease; K21.9 Gastro-esophageal reflux disease without esophagitis; Z85.038 Personal history of other malignant neoplasm of large intestine; Z85.3 Personal history of malignant neoplasm of breast; Z80.0 Family history of malignant neoplasm of digestive organs; Z82.49 Family history of ischemic heart disease and other diseases of the circulatory system; Z88.0 Allergy status to penicillin; Z79.82 Long term (current) use of aspirin; Z90.89 Acquired absence of other organs; Z90.710 Acquired absence of both cervix and uterus; X58.XXXA Exposure to other specified factors, initial encounter
CPT/HCPCS: 36415; 71045; 71275; 74177; 80053; 83690; 83735; 83874; 84484; 85025; 85610; 85730; 93005; 93041; 94664

== ENCOUNTER 2017-10-12 21:38 | Inpatient (IN) | payer MEDICARE, OTHER ==
[~2017-10-12] VITALS: Ht 175.3 cm; Wt 56.2 kg
[2017-10-12] MEDS ORDERED: LACTATED RINGERS 1,000 ML IV ONE (21:47)
[2017-10-12] MEDS ORDERED: ONDANSETRON 4 MG/2 ML (SDV) Z0FRAN IVP ONE (22:00)
[2017-10-12] MEDS ORDERED: TOLT4CAP13 (22:05)
--- NOTE | 2017-10-12 22:14 | ED GI ---
General Chief Complaint: Abdominal/GI Problems Stated Complaint: VOMITING Source of Information: Family, Fdc Records, Old Records Exam Limitations: Other (PT IS VERY LIMITED HISTORIAN, APPEARS SOMEWHAT CONFUSED AND CANNOT GIVE ANY RELEVANT INFORMATION ABOUT CURRENT PROBLEM OR PAST HISTORY) History of Present Illness Date Seen by Provider: Oct 12, 2017 Time Seen by Provider: 21:38 Initial Comments PT ARRIVES VIA EMS FROM [facility] EMS WAS CALLED DUE TO PT HAVING NAUSEA AND VOMITED X 4 SINCE 1999 TONIGHT FAMILY REPORTS THAT PT HAD EATEN ALOT MORE THAN NORMAL TONIGHT, AND BEGAN VOMITING SOMETIME AFTER SHE ATE TONIGHT. FAMILY REPORT THAT PT WAS ONLY VOMITING UP "WATERY MUCOUS" AND NOT ANY FOOD PT WAS GIVEN PHENERGAN SUPPOSITORY BY [facility] STAFF AT 2030 TONIGHT PT WAS REPORTEDLY "CLAMMY" AT [facility] PT STATES SHE IS STILL A LITTLE NAUSEATED NOW, ON DIRECT QUESTIONING. PT ADMITS TO SOME EPIGASTRIC DISCOMFORT ON DIRECT QUESTIONING. PT HAS HISTORY OF CHEST AND EPIGASTRIC PAIN FOR AT LEAST A YEAR. PT WILL ANSWER SOME YES/NO QUESTIONS, OTHERWISE IS NOT TALKING MUCH AND DOES NOT VOLUNTEER ANY INFORMATION PT DENIES HAVING CHEST PAIN PT DENIES FEELING SHORT OF BREATH, ALTHOUGH SHE APPEARS TO BE HAVING SOME DYSPNEA--MILD TACHYPNEA AND MILDLY LABORED BREATHING/MILD RETRACTIONS. PT ALSO HAS HISTORY OF ANXIETY AND WHEN SHE GETS ANXIOUS, SHE STARTS GETTING SHORT OF BREATH. PT DENIES HEADACHE NO REPORTED FEVER NO REPORTED DIARRHEA. NO REPORTED URINARY SYMPTOMS NO REPORTED FEVER. EMS REPORT TEMP OF 95.7, BP 123/55 PT DID HAVE A ROUTINE APPOINTMENT WITH DR. BOLAÑOS TODAY PT HAS HAD SOME GRADUAL CONFUSION, THOUGHT POSSIBLY DUE TO PAIN MEDICATION. HOWEVER, PT HAS HAD ONGOING ISSUES WITH EPISODES OF CONFUSION FOR AT LEAST A YEAR. PT WAS RECENTLY ADMITTED TO [facility] AFTER FALLING AND BREAKING HER PELVIS AND RIBS. PT HAS HAD SEVERAL VISITS AND ADMITS IN THE LAST YEAR. FAMILY REPORT THAT PT IS DNR/DNI PCP: DR. BOLAÑOS HANDICAPPER HARNESS RACING: DR. BOLAÑOS Allergies and Home Medications Allergies Coded Allergies: Penicillins (Verified Allergy, Mild, 08/05/13) Home Medications Alprazolam 0.25 Mg Tablet, 0.5 TAB PO BID Prescribed by: NICOLE BOLAÑOS on 09/20/17 0852 Aspirin 81 Mg Tablet., 81 MG PO We, (Reported) TAKES AT NOON Calcium Carbonate/Vitamin D3 1 Each Tablet, 1 TAB PO DAILY, (Reported) Carbidopa/Levodopa 1 Each Tablet, 2 TAB PO BID, (Reported) Carbidopa/Levodopa 1 Each Tablet, 3 TAB PO 1200, (Reported) Cholecalciferol (Vitamin D3) 400 Unit Tablet, 400 UNIT PO DAILY, (Reported) Docusate Sodium 100 Mg Capsule, 100 MG PO BID Prescribed by: NICOLE BOLAÑOS on 09/20/17851 Furosemide 20 Mg Tablet, 20 MG PO UD PRN for WEIGHT GAIN >2.5-3 POUNDS, ( Reported) TAKE THREE TIMES A WEEK NEEDED FOR WEIGHT GAIN GREATER THAN 2.5-3 POUNDS Hydrocodone Bit/Acetaminophen 1 Tab Tab, 0.5 TAB PO TID 1/2 tab tid and 1 tab po q 4 hours prn uncontrolled pelvic fx pain Prescribed by: NICOLE BOLAÑOS on 09/20/17851 Metoprolol Tartrate 25 Mg Tablet, 12.5 MG PO BID, (Reported) TAKES 1/2 (25MG) TABLET Multivitamin 1 Each Tablet, 1 TAB PO DAILY, (Reported) Nitroglycerin 0.4 Mg Tab.subl, 0.4 MG SL UD PRN for CHEST PAIN, (Reported) [place]-3 Fatty Acids 1,000 Mg Capsule, 1,000 MG PO DAILY, (Reported) Omeprazole 20 Mg Capsule.dr, 20 MG PO BID, (Reported) Potassium Chloride 20 Meq Tab.er.prt, 20 MEQ PO DAILY PRN for WHEN TAKING FUROSEMIDE, (Reported) Rasagiline Mesylate 1 Mg Tablet, 1 MG PO DAILY, (Reported) Sertraline HCl 50 Mg Tablet, 50 MG PO HS, (Reported) Spironolactone 25 Mg Tablet, 25 MG PO DAILY, (Reported) Vitamin B Complex & Vit C No.4 150 Mg Tablet, 150 MG PO DAILY, (Reported) [Calcitonin] 3.7 ML SOLN, 0 ML NA DAILY pt to use one spray per one nostril alternate nostrils daily. use medication 2 weeks then stop Prescribed by: NICOLE BOLAÑOS on 09/20/17851 Patient Home Medication List Home Medication List Reviewed: Yes Review of Systems Constitutional: malaise, weakness, other (VERY LIMITED INFORMATION) Respiratory: See HPI Cardiovascular: Denies Chest Pain Gastrointestinal: Abdominal Pain, Nausea, Vomiting Musculoskeletal: see HPI Psychiatric/Neurological: See HPI; Denies Headache Past Hypcyzc-Tcwvzi-Hqpwcy Hx Patient Social History Alcohol Use: Denies Use Recreational Drug Use: No Smoking Status: Never a Smoker 2nd Hand Smoke Exposure: No Recent Hopitalizations: Yes (FALL PELVIC FX) Immunizations Up To Date Tetanus Booster (TDap): Unknown PED Vaccines UTD: No Date of Influenza Vaccine: Feb 07, 2017 Seasonal Allergies Seasonal Allergies: No Past Medical History Surgeries: Yes (COLON RESECTION FOR CANCER; ERCP FOR OBSTRUCTION SECONDARY TO GALLSTONE; MASTECTOMY FOR BREAST CANCER; EGD/COLONOSOPIES; ) Abdominal, Appendectomy, Breast, Cardiac, Gallbladder, Hysterectomy, Oophorectomy Respiratory: Yes (DYSPNEA WITH ANXIETY) COPD Currently Using CPAP: No Currently Using BIPAP: No Cardiac: Yes (LBBB, CHF) Cardiomyopathy, High Cholesterol, Hypertension Neurological: Yes (EPISODES OF CONFUSION) Parkinson's Disease Reproductive Disorders: No Female Reproductive Disorders: Denies Sexually Transmitted Disease: No HIV/AIDS: No Genitourinary: Yes (URGENCY; STRESS INCONTINENCE; CHRONIC RENAL INSUFFICIENCY) Renal Failure Gastrointestinal: Yes (COLON CANCER; HEPATOMEGALY AND HEPATIC CYSTS) Gastroesophageal Reflux, Diverticulosis, Hiatal Hernia Musculoskeletal: Yes (CHRONIC NECK AND SHOULDER PAIN; FALLS; GENERALIZED WEAKNESS; FX RIBS AND SACRUM AND PELVIS 09/2017) Arthritis, Chronic Back Pain Endocrine: No HEENT: Yes (DYSPHAGIA) Cataract Cancer: Yes Breast, Colon Did You Recieve Any Treatments: Yes What Type of Treatment Did You: Surgical Intervention Psychosocial: No Integumentary: No Blood Disorders: No Adverse Reaction/Blood Tranf: No Family Medical History Cancer 19 FATHER (BLADDER) 19 MOTHER (LIVER ) Myocardial infarction 19 MOTHER Parkinson's disease 19 FATHER Cancer Physical Exam Vital Signs Vital Signs - First Documented 10/12/17 21:43 Temp 97.6 Pulse 107 Resp 35 B/P (MAP) 122/84 (97) Pulse Ox 92 O2 Delivery Nasal Cannula O2 Flow Rate 2.00 Capillary Refill : Height/Weight/BMI Height: 5'9.00" Weight: 136lbs. 2.0oz. 61.892691iv; 19.3 BMI Method:Stated General Appearance: other (VERY FLAT AFFECT, MILDLY LETHARGIC AND WITH GENERALIZED WEAKNESS) HEENT: PERRL/EOMI, normal ENT inspection, TMs normal, pharynx normal Neck: non-tender, full range of motion, supple, normal inspection; No carotid bruit Respiratory: normal breath sounds; No decreased breath sounds, No rales, No rhonchi, No wheezing; other (MILDLY DYSPNEIC-TACHYPNEIC AND MILD RETRACTIONS. ) Cardiovascular: regular rate, rhythm (HR 90'S TO LOW 100'S), no edema, no JVD, no murmur Gastrointestinal: normal bowel sounds, soft, no organomegaly, no pulsatile mass ; No distended, No guarding, No rebound; tenderness (MILD EPIGASTRIC) Extremities: no pedal edema, no calf tenderness, normal capillary refill Back: no CVA tenderness Neurologic/Psychiatric: airport control operator II-XII nml as tested, no motor/sensory deficits, other (MENTATION NOTED ABOVE. PT ORIENTED TO PERSON, KNOWS IN HOSPITAL, CONFUSED TO TIME AND SITUATION AND VERY POOR MEMORY. ) Skin: cool, damp (SLIGHTLY "CLAMMY" ), pallor Focused Exam Lactate Level 10/12/17 00:27: Lactic Acid Level 3.04*H Lactic Acid Level Laboratory Tests Test 10/12/17 00:27 Lactic Acid Level 3.04 MMOL/L (0.50-2.00) *H Progress/Results/Core Measures Results/Orders Lab Results Laboratory Tests Test 10/12/17 00:27 10/12/17 22:16 10/12/17 23:01 Range/Units Lactic Acid Level 3.04 *H 0.50-2.00 MMOL/L White Blood Count 9.6 4.3-11.0 10^3/uL Red Blood Count 4.72 4.35-5.85 10^6/uL Hemoglobin 13.6 11.5-16.0 G/DL Hematocrit 41 35-52 % Mean Corpuscular Volume 86 80-99 FL Mean Corpuscular Hemoglobin 29 25-34 PG Mean Corpuscular Hemoglobin Concent 34 32-36 G/DL Red Cell Distribution Width 18.6 H 10.0-14.5 % Platelet Count 171 130-400 10^3/uL Mean Platelet Volume 9.8 7.4-10.4 FL Neutrophils (%) (Auto) 83 H 42-75 % Lymphocytes (%) (Auto) 7 L 12-44 % Monocytes (%) (Auto) 9 0-12 % Eosinophils (%) (Auto) 0 0-10 % Basophils (%) (Auto) 0 0-10 % Neutrophils # (Auto) 8.0 H 1.8-7.8 X 10^3 Lymphocytes # (Auto) 0.7 L 1.0-4.0 X 10^3 Monocytes # (Auto) 0.9 0.0-1.0 X 10^3 Eosinophils # (Auto) 0.0 0.0-0.3 10^3/uL Basophils # (Auto) 0.0 0.0-0.1 10^3/uL Neutrophils % (Manual) 89 % Lymphocytes % (Manual) 6 % Monocytes % (Manual) 2 % Eosinophils % (Manual) 1 % Basophils % (Manual) 2 % Band Neutrophils 0 % Blood Morphology Comment NORMAL Prothrombin Time 14.6 12.2-14.7 SEC INR Comment 1.1 0.8-1.4 Activated Partial Thromboplast Time 20 L 24-35 SEC Sodium Level 139 135-145 MMOL/L Potassium Level 5.9 H 3.6-5.0 MMOL/L Chloride Level 103 98-107 MMOL/L Carbon Dioxide Level 20 L 21-32 MMOL/L Anion Gap 16 H 5-14 MMOL/L Blood Urea Nitrogen 26 H 7-18 MG/DL Creatinine 0.95 0.60-1.30 MG/DL Estimat Glomerular Filtration Rate 56 BUN/Creatinine Ratio 27 Glucose Level 131 H 70-105 MG/DL Calcium Level 10.9 H 8.5-10.1 MG/DL Magnesium Level 2.2 1.8-2.4 MG/DL Total Bilirubin 0.8 0.1-1.0 MG/DL Aspartate Amino Transf (AST/SGOT) 60 H 5-34 U/L Alanine Aminotransferase (ALT/SGPT) 10 0-55 U/L Alkaline Phosphatase 257 H 40-136 U/L Troponin I < 0.30 <0.30 NG/ML Total Protein 7.3 6.4-8.2 GM/DL Albumin 3.9 3.2-4.5 GM/DL Amylase Level 41 25-125 U/L Lipase 12 8-78 U/L Urine Color IRENA H Urine Clarity VERY CLOUDY H Urine pH 5 5-9 Urine Specific Johnson 1.025 H 1.016-1.022 Urine Protein 3+ H NEGATIVE Urine Glucose (UA) NEGATIVE NEGATIVE Urine Ketones 2+ H NEGATIVE Urine Nitrite NEGATIVE NEGATIVE Urine Bilirubin NEGATIVE NEGATIVE Urine Urobilinogen 1 NORMAL MG/DL Urine Leukocyte Esterase 3+ H NEGATIVE Urine RBC (Auto) 4+ H NEGATIVE Urine RBC >100 H /HPF Urine WBC 50-100 H /HPF Urine Squamous Epithelial Cells RARE /HPF Urine Crystals NONE /LPF Urine Bacteria LARGE H /HPF Urine Casts NONE /LPF Urine Mucus NEGATIVE /LPF Urine Culture Indicated YES My Orders Orders - BEV DAIGLE DO Saline Lock/Iv-Start (10/12/17 21:47) Ekg Tracing (10/12/17 21:47) O2 (10/12/17 21:47) Monitor-Rhythm Ecg Trace Only (10/12/17 21:47) Amylase (10/12/17 21:47) Cbc With Automated Diff (10/12/17 21:47) Comprehensive Metabolic Panel (10/12/17 21:47) Lipase (10/12/17 21:47) Magnesium (10/12/17 21:47) Protime With Inr (10/12/17 21:47) Partial Thromboplastin Time (10/12/17 21:47) Troponin I (10/12/17 21:47) Ua Culture If Indicated (10/12/17 21:47) Chest 1 View, Ap/Pa Only (10/12/17 21:47) Ct Abdomen/Pelvis Wo (10/12/17 21:47) Saline Lock/Iv-Start (10/12/17 21:47) Lactated Ringers (Lr 1000 Ml Iv Solution (10/12/17 21:47) Ondansetron Injection (Zofran Injectio (10/12/17 22:00) Manual Differential (10/12/17 22:16) Pantoprazole Injection (Protonix Injecti (10/12/17 22:30) Fentanyl Injection (Sublimaze Injection (10/12/17 22:25) Urine Culture (10/12/17 23:01) Saline Lock/Iv-Start (10/12/17 23:41) Ns Iv 1000 Ml (Sodium Chloride 0.9%) (10/12/17 23:41) Ceftriaxone Injection (Rocephin Injectio (10/12/17 23:45) Ceftriaxone Injection (Rocephin Injectio (10/12/17 23:48) Ns (Ivpb) (Sodium Chloride 0.9% Ivpb Bag (10/12/17 23:48) Lactic Acid Analyzer (10/12/17 23:55) Blood Culture (10/12/17 23:55) Medications Given in ED Current Medications Medications Dose Ordered Sig/Shayne Route Start Time Stop Time Status Last Admin Dose Admin Ceftriaxone Sodium 1000 mg/ Sodium Chloride 50 ml @ 100 mls/hr ONCE ONCE IV 10/12/17 23:45 10/13/17 00:19 DC 10/13/17 00:30 100 MLS/HR Lactated Ringer's 1,000 ml @ 0 mls/hr Q0M ONCE IV 10/12/17 21:47 10/12/17 21:58 DC 10/12/17 22:07 1,000 MLS/HR Ondansetron HCl 4 mg ONCE ONCE IVP 10/12/17 22:00 10/12/17 22:01 DC 10/12/17 22:08 4 MG Pantoprazole 40 mg ONCE ONCE IV 10/12/17 22:30 10/12/17 22:31 DC 10/12/17 23:00 40 MG Sodium Chloride 1,000 ml @ 0 mls/hr Q0M ONCE IV 10/12/17 23:41 10/13/17 00:19 DC 10/12/17 23:54 1,000 MLS/HR Vital Signs/I&O 10/12/17 10/12/17 21:43 21:43 Temp 97.6 Pulse 107 Resp 35 B/P (MAP) 122/84 (97) Pulse Ox 92 92 O2 Delivery Nasal Cannula Nasal Cannula O2 Flow Rate 2.00 10/13/17 00:00 Intake Total 1000 ml Balance 1000 ml Progress Progress Note : Progress Note NO DETERIORATION IN PT'S CONDITION DURING ER STAY Initial ECG Impression Date: Oct 12, 2017 Initial ECG Impression Time: 21:50 Initial ECG Rate: 106 Initial ECG Rhythm: S.Tach (LBBB, OTHER NON-SPECIFIC CHANGES) Initial ECG Comparisson: Unchanged Diagnostic Imaging Comments CXR--CARDIOMEGALY, CHRONIC CHANGES, BIBASILAR ATELECTASIS, HIATAL HERNIA-- PENDING RADIOLOGIST REVIEW CT ABDOMEN/PELVIS--DILATED CARDIOMYOPATHY, BILATERAL EFFUSIONS; LARGE HIATAL HERNIA, HEPATOMEGALY, HAZY INFILTRATES. ALSO FRACTURES OF RIGHT SUPERIOR AND INFERIOR PUBIC RAMUS , S2 VERTEBRA AND RIGHT SACRAL ALA--UNCHANGED FROM 09/23/17 --PER [facility] VIA FAX @ [phone] Reviewed: Reviewed by Me Departure Communication (Admissions) [id number]--ATTEMPTING TO CONTACT DR. BOLAÑOS, MESSAGE LEFT ON CELL PHONE [phone]--ATTEMPTING TO CONTACT DR. BOLAÑOS, MESSAGE LEFT ON CELL PHONE [phone]--CONTACTED DR. BOLAÑOS ON HOME PHONE, SHE ACCEPTS PT FOR ADMIT. SHE ADVISES THAT SHE WILL BE LEAVING TOWN TOMORROW, AND DR. LEE WILL BE COVERING STARTING IN THE MORNING, AND SHE ADVISES TO HAVE NURSING STAFF CONTACT HIM AT 0700 AND NOTIFY HIM THAT PT HAS BEEN ADMITTED. Impression Primary Impression: Sepsis Additional Impressions: UTI (urinary tract infection) Pleural effusion RECENT RIB AND PELVIC FRACTURES Large hiatal hernia Nausea & vomiting Epigastric abdominal pain Generalized weakness Dehydration Hyperkalemia Disposition: ADMITTED INPATIENT Condition: Stable Admissions Decision to Admit Reason: Admit from ER (General) Decision to Admit/Date: Oct 13, 2017 Time/Decision to Admit Time: 00:25 Departure-Patient Inst. Referrals: NICOLE BOLAÑOS MD (PCP/Family) Primary Care Physician BEV DAIGLE DO Oct 12, 2017 22:14
[2017-10-12 22:24] LABS: BASOPHILS % (AUTO) 0 % (0-10); EOSINOPHILS % (AUTO) 0 % (0-10); HEMATOCRIT 41 % (35-52); HEMOGLOBIN 13.6 G/DL (11.5-16.0); LYMPHOCYTES # (AUTO) 0.7 X 10^3 (1.0-4.0); LYMPHOCYTES % (AUTO) 7 % (12-44); MEAN CORPUSCULAR HEMOGLOBIN 29 PG (25-34); MEAN CORPUSCULAR HGB CONC 34 G/DL (32-36); MEAN CORPUSCULAR VOLUME 86 FL (80-99); MEAN PLATELET VOLUME 9.8 FL (7.4-10.4); MONOCYTES # (AUTO) 0.9 X 10^3 (0.0-1.0); MONOCYTES % (AUTO) 9 % (0-12); NEUTROPHILS % (AUTO) 83 % (42-75); PLATELET COUNT 171 10^3/uL (130-400); RED BLOOD COUNT 4.72 10^6/uL (4.35-5.85); RED CELL DISTRIBUTION WIDTH 18.6 % (10.0-14.5); WHITE BLOOD COUNT 9.6 10^3/uL (4.3-11.0)
[2017-10-12] MEDS ORDERED: fentaNYL INJECTION 100 MCG/2 ML AMP IVP STA (22:25)
[2017-10-12] MEDS ORDERED: PANTOPRAZOLE 40 MG/10 ML (PROTONIX) VIAL IV ONE (22:30)
[2017-10-12 22:39] LABS: INR 1.1 (0.8-1.4); PROTHROMBIN TIME PATIENT 14.6 SEC (12.2-14.7)
[2017-10-12 22:48] LABS: ALANINE AMINOTRANSFERASE 10 U/L (0-55); ALBUMIN 3.9 GM/DL (3.2-4.5); ALKALINE PHOSPHATASE 257 U/L (40-136); AMYLASE 41 U/L (25-125); BILIRUBIN,TOTAL 0.8 MG/DL (0.1-1.0); BUN/CREATININE RATIO 27; CALCIUM 10.9 MG/DL (8.5-10.1); CARBON DIOXIDE 20 MMOL/L (21-32); CHLORIDE 103 MMOL/L (98-107); CREATININE SERUM 0.95 MG/DL (0.60-1.30); GFR ESTIMATED 56; GLUCOSE 131 MG/DL (70-105); LIPASE 12 U/L (8-78); MAGNESIUM 2.2 MG/DL (1.8-2.4); POTASSIUM 5.9 MMOL/L (3.6-5.0); SODIUM 139 MMOL/L (135-145); TOTAL PROTEIN 7.3 GM/DL (6.4-8.2)
[2017-10-12 22:49] LABS: BAND NEUTROPHILS 0 %; BASOPHILS % (MANUAL) 2 %; EOSINOPHILS % (MANUAL) 1 %; LYMPHOCYTES % (MANUAL) 6 %; MONOCYTES % (MANUAL) 2 %; NEUTROPHILS % (MANUAL) 89 %; RBC MORPH NORMAL
[2017-10-12 23:14] LABS: BILIRUBIN,URINE NEGATIVE (NEGATIVE); CLARITY,URINE VERY CLOUDY; COLOR,URINE AMBER; GLUCOSE, URINE (UA) NEGATIVE (NEGATIVE); KETONES,URINE 2+ (NEGATIVE); LEUKOCYTE ESTERASE ,URINE 3+ (NEGATIVE); NITRITE,URINE NEGATIVE (NEGATIVE); PH,URINE 5 (5-9); PROTEIN,URINE 3+ (NEGATIVE); UROBILINOGEN,URINE 1 MG/DL (NORMAL)
[2017-10-12 23:23] LABS: BACTERIA,URINE LARGE /HPF; RBC,URINE >100 /HPF; SQUAMOUS EPITHELIAL CELL,UR RARE /HPF; WBC,URINE 50-100 /HPF
[2017-10-12] MEDS ORDERED: NS IV 1000 ML 1,000 ML IV ONE (23:41)
[2017-10-12] MEDS ORDERED: cefTRIAXone 1 GM (ROCEPHIN) VIAL ONE (23:48)
[2017-10-12] MEDS ORDERED: NS (IVPB) 50 ML ONE (23:48)
[2017-10-12] MEDS: cefTRIAXone INJECTION 1,000 MG in NS (IVPB) 50 ML IV ONE (23:54)
[2017-10-13] VITALS (9 sets, daily range): BP systolic 120–148; BP diastolic 58–87
[2017-10-13] MEDS: cefTRIAXone INJECTION 1,000 MG in NS (IVPB) 50 ML IV ONE (00:30)
--- OUTSIDE RECORDS SUMMARY | 2017-10-13 01:34 | XMS REPORT | Clinical Summary ---
Author Author [facility] Organization [facility] Address Unknown Phone Unavailable Care Team Providers Care Set Up Person Name Role Phone Suzanne Mcadams MD Unavailable Tiago Rodrigues [facility] Unavailable Rah Cruz MD Unavailable Jazz Bonds MD PCP Source Comments Some departments are not documenting in the electronic medical record. If you do not see the information that you expected, contact Release of Information in the Health Information Management department at [phone] for further assistance in locating additional records.[facility] Allergies Active Allergy Reactions Severity Noted Date [...] Active LA) 4 mg capsule daily. 18 Active Problems Problem Noted Date Depression 04/28/2015 [...]
--- OUTSIDE RECORDS SUMMARY | 2017-10-13 01:34 | XMS REPORT | Encounter Summary ---
Author Author [facility] Organization [facility] Address Unknown Phone Unavailable Care Team Providers Care Farm Tractor Operator Name Role Phone Suzanne Mcadams MD Unavailable Tiago RodriguesW Unavailable Rah Cruz MD Unavailable Jazz Bonds MD PCP Reason for Visit * Reason Comments Medication Refill Encounter Details Date Type Department Care Team Description 07/13/2017 Refill [facility] Rah Cruz MD Physicians-Neurology [address] [facility] [address] [place] [address] [place], [place] [phone] [phone] Social History Tobacco Use Types Packs/Day Years [...] Judge LPN - 07/13/2017 8:06 AM CDT [facility] pharmacy requesting rx refill. Telephone order received by Dr. Rah Cruz MD carbidopa/levodopa (SINEMET) 25/100 mg tablet Si tab, 3 tabs, 2 tabs. #630 x 3 refills in this encounter Plan of Treatment Not on fileas of this encounter Visit Diagnoses Not on filein this encounter
--- OUTSIDE RECORDS SUMMARY | 2017-10-13 01:34 | XMS REPORT | Encounter Summary ---
Author Author [facility] Organization [facility] Address Unknown Phone Unavailable Care Team Providers Care Marine Electrician Name Role Phone Suzanne Mcadams MD Unavailable Tiago RodriguesW Unavailable Rah Cruz MD Unavailable Jazz Bonds MD PCP Reason for Referral * Consult, Test & Treat Status Reason Specialty Diagnoses / Referred By Referred To Procedures Contact Contact Closed Specialty Diagnoses Rah Cruz, Services Primary MD Required Parkinsonism [address] [place] [address] Reason for Visit * Reason Comments Parkinsonism w/ daughter Encounter Details Date Type Department Care Team Description 09/05/2017 Office Visit [facility] Rah Cruz MD Primary Parkinsonism Physicians-Neurology [address] (Primary Dx); [facility] [address] Cognitive changes; [address] [place] [address] Other depression; [place], [place] [phone] RLS (restless legs [address] syndrome); [phone] Other insomnia Social History Tobacco Use Types [...] patients can have urinary retention. Please call [phone] if you have any questions or side effects. Please contact me through your smart phone with [employer] erica or go on line at [employer] You will need to register. in this [...] public places?: Always Had difficulty dressing?: Occasionally [place] depressed?: Never Had problems with your close personal relationships?: Occasionally Had problems with your concentration, for example, when reading or watching TV? : Occasionally [place] unable to communicate effectively?: Occasionally Had painful muscle cramps or spasms?: Often [place] embarrassed in public due to having Parkinson's [...]
--- OUTSIDE RECORDS SUMMARY | 2017-10-13 01:34 | XMS REPORT | Encounter Summary ---
Author Author [facility] Organization [facility] Address Unknown Phone Unavailable Care Team Providers Care Physician Non Invasive Cardiologist Name Role Phone Suzanne Mcadams MD Unavailable Tiago RodriguesW Unavailable Rah Cruz MD Unavailable Jazz Bonds MD PCP Reason for Visit * Reason Comments Prior Authorization Encounter Details Date Type Department Care Team Description 09/16/2017 Telephone [facility] Rah Cruz MD Prior Authorization Physicians-Neurology [address] [facility] [address] [place] [address] [place], [place] [phone] Social History Tobacco Use Types Packs/Day Years [...] Meds. Call to Complete PA. PT ID: [id number] Spoke with Chip, the medication requires step therapy prior authorization. Transferred to Cindy, Pharmacist, for the completion of the Prior authorization. Formulary alternatives are: [place] Myrbetriq. Explained that the provider prefers Detrol. Prior Auth is approved until 09/17/2018. Case# [id number] Called [facility] to inform them of the outcome. They were able to run the claim. They will call the pt. in this encounter Plan of Treatment Not on fileas of this encounter Visit Diagnoses Not on filein this encounter
--- OUTSIDE RECORDS SUMMARY | 2017-10-13 01:48 | XMS REPORT | Encounter Summary ---
Author Author [facility] Organization [facility] Address Unknown Phone Unavailable Care Team Providers Care Resident Engineer Name Role Phone Suzanne Mcadams MD Unavailable Tiago RodriguesW Unavailable Rah Cruz MD Unavailable Jazz Bonds MD PCP Reason for Visit * Reason Comments Prior Authorization Encounter Details Date Type Department Care Team Description 09/16/2017 Telephone [facility] Rah Cruz MD Prior Authorization Physicians-Neurology [address] [facility] [address] [place] [address] [place], [place] [phone] Social History Tobacco Use Types Packs/Day Years [...] Meds. Call to Complete PA. PT ID: [id number] Spoke with Chip, the medication requires step therapy prior authorization. Transferred to Cnidy, Pharmacist, for the completion of the Prior authorization. Formulary alternatives are: [place] Myrbetriq. Explained that the provider prefers Detrol. Prior Auth is approved until 09/17/2018. Case# [id number] Called [facility] to inform them of the outcome. They were able to run the claim. They will call the pt. in this encounter Plan of Treatment Not on fileas of this encounter Visit Diagnoses Not on filein this encounter
--- OUTSIDE RECORDS SUMMARY | 2017-10-13 01:48 | XMS REPORT | Encounter Summary ---
Author Author [facility] Organization [facility] Address Unknown Phone Unavailable Care Team Providers Care Warehouse Distribution Specialist Name Role Phone Suzanne Mcadams MD Unavailable Tiago RodriguesW Unavailable Rah Cruz MD Unavailable Jazz Bonds MD PCP Reason for Visit * Reason Comments Medication Refill Encounter Details Date Type Department Care Team Description 07/13/2017 Refill [facility] Rah Cruz MD Physicians-Neurology [address] [facility] [address] [place] [address] [place], [place] [phone] Social History Tobacco Use Types Packs/Day Years [...]
--- OUTSIDE RECORDS SUMMARY | 2017-10-13 01:48 | XMS REPORT | Encounter Summary ---
Author Author [facility] Organization [facility] Address Unknown Phone Unavailable Care Team Providers Care Hemming And Tacking Machine Operator Name Role Phone Suzanne Mcadams MD Unavailable Tiago RodriguesW Unavailable Rah Cruz MD Unavailable Jazz Bonds MD PCP Reason for Referral * Consult, Test & Treat Status Reason Specialty Diagnoses / Referred By Referred To Procedures Contact Contact Closed Specialty Diagnoses Rah Cruz, Services Primary MD Required Parkinsonism [address] [place] [address] Reason for Visit * Reason Comments Parkinsonism w/ daughter Encounter Details Date Type Department Care Team Description 09/05/2017 Office Visit [facility] Rah Cruz MD Primary Parkinsonism Physicians-Neurology [address]) (Primary Dx); [facility] [address] Cognitive changes; [address] [place] [address] Other depression; [place], [place] [phone] RLS (restless legs [address] syndrome); [phone] Other insomnia Social History Tobacco Use Types [...] patients can have urinary retention. Please call [phone] if you have any questions or side effects. Please contact me through your smart phone with [employer] erica or go on line at [employer] You will need to register. in this [...] public places?: Always Had difficulty dressing?: Occasionally [place] depressed?: Never Had problems with your close personal relationships?: Occasionally Had problems with your concentration, for example, when reading or watching TV? : Occasionally [place] unable to communicate effectively?: Occasionally Had painful muscle cramps or spasms?: Often [place] embarrassed in public due to having Parkinson's [...]
--- OUTSIDE RECORDS SUMMARY | 2017-10-13 01:48 | XMS REPORT | Clinical Summary ---
Author Author [facility] Organization [facility] Address Unknown Phone Unavailable Care Team Providers Care Visual Journalist Name Role Phone Suzanne Mcadams MD Unavailable Tiago Rodrigues [facility] Unavailable Rah Cruz MD Unavailable Jazz Bonds MD PCP Source Comments Some departments are not documenting in the electronic medical record. If you do not see the information that you expected, contact Release of Information in the Health Information Management department at [phone] for further assistance in locating additional records.[facility] Allergies Active Allergy Reactions Severity Noted [...]
[2017-10-13] MEDS ORDERED: ACETAMINOPHEN 650 MG SUPP (TYLENOL) PR PRN (02:30)
[2017-10-13] MEDS ORDERED: 1/2 NS IV SOLUTION 1,000 ML IV SCH (02:30)
[2017-10-13] MEDS ORDERED: ONDANSETRON 4 MG/2 ML (SDV) Z0FRAN IV PRN (02:30)
[2017-10-13 05:10] LABS: BASOPHILS % (AUTO) 0 % (0-10); EOSINOPHILS % (AUTO) 0 % (0-10); HEMATOCRIT 40 % (35-52); HEMOGLOBIN 12.9 G/DL (11.5-16.0); LYMPHOCYTES # (AUTO) 0.5 X 10^3 (1.0-4.0); LYMPHOCYTES % (AUTO) 5 % (12-44); MEAN CORPUSCULAR HEMOGLOBIN 28 PG (25-34); MEAN CORPUSCULAR HGB CONC 33 G/DL (32-36); MEAN CORPUSCULAR VOLUME 86 FL (80-99); MEAN PLATELET VOLUME 10.4 FL (7.4-10.4); MONOCYTES # (AUTO) 0.7 X 10^3 (0.0-1.0); MONOCYTES % (AUTO) 6 % (0-12); NEUTROPHILS # (AUTO) 9.3 X 10^3 (1.8-7.8); NEUTROPHILS % (AUTO) 89 % (42-75); PLATELET COUNT 196 10^3/uL (130-400); RED BLOOD COUNT 4.62 10^6/uL (4.35-5.85); RED CELL DISTRIBUTION WIDTH 18.9 % (10.0-14.5); WHITE BLOOD COUNT 10.4 10^3/uL (4.3-11.0)
[2017-10-13] MEDS: FUROSEMIDE 40 MG/4 ML INJ (LASIX) IVP SCH ×2 (05:12→06:12)
[2017-10-13 05:37] LABS: ALBUMIN 3.6 GM/DL (3.2-4.5); BILIRUBIN,TOTAL 0.7 MG/DL (0.1-1.0); CALCIUM 10.3 MG/DL (8.5-10.1); CREATININE SERUM 0.97 MG/DL (0.60-1.30); POTASSIUM 5.5 MMOL/L (3.6-5.0); TOTAL PROTEIN 6.4 GM/DL (6.4-8.2)
[2017-10-13] MEDS ORDERED: inSUlin (REGULAR) HUMAN 1 UNIT/0.01 ML (CHARGE PER UNIT) IV NR (06:15)
[2017-10-13] MEDS ORDERED: HYDROcodone/APAP 5 MG/325 MG (LORTAB) TAB PO PRN ×2 (06:15→07:30)
[2017-10-13] MEDS ORDERED: HYDROcodone/APAP 5 MG/325 MG (LORTAB) TAB PO NR (06:15)
[2017-10-13] MEDS ORDERED: FUROSEMIDE 40 MG/4 ML INJ (LASIX) IV NR (06:15)
[2017-10-13] MEDS ORDERED: ALPRAZolam 0.25 MG (XANAX) TAB PO NR (06:15)
[2017-10-13] MEDS ORDERED: DEXTROSE 50% 50 ML (IMS) SYR IV NR (06:15)
[2017-10-13 06:30] LABS: ABG BASE EXCESS -5.6 MMOL/L (-2.5-2.5); ABG OXYGEN SATURATION 99 % (94-100); ABG PCO2 28 MMHG (35-45); ABG PH 7.43 (7.37-7.43); ABG PO2 109 MMHG (79-93); ABG TCO2 19.1 MMOL/L (21.0-31.0)
[2017-10-13] MEDS: RT-ALBUTEROL/IPRATROPIUM 3 ML (DUONEB) VIAL INH SCH ×5 (06:31→21:29)
[2017-10-13 06:34] LABS: ALLENS TEST YES-POS; INSPIRED O2 30; PATIENT TEMP 96.8; VENTILATOR NO
--- NOTE | 2017-10-13 06:59 | History & Physical ---
History of Present Illness History of Present Illness Reason for visit/HPI 82 yo F admitted for sepsis due to UTI and increased work of breathing. Pt was recently hospitalized for a pelvic fracture early September- she has had 3 urinary catheters placed but none recently. Of note patient was seen at Dr. Bonds's office yesterday and she was noted to have some confusion and glassy eyed so her hydrocodone was stopped and she was placed on tylenol only. Pt has been ambulatory with a walker. I was contacted by [facility] to have pt evaluated by the ER because she was diaphoretic and shaking and didn't appear her normal self with confusion noted. [facility] staff report she ate a big dinner and vomited sputum- no food. She was given a phenergan suppository and sent to ER. It was found her lactic acid was 3 and her UA was suggestive of an UTI. She does have history of anxiety with associated rapid breathing- which xanax. Also of note complicating her rescuciation is she has systolic congestive heart failure- with most recent echo June [address] García showing Moderate LV systolic dysfunction with EF of 30 to 35%. Global hypokinesis. Noncompacted LV cardiomyopathy. Mild diastolic dysfunction. Mild concentric LVH. Patient was admitted for further care and evaluation. Review of her imaging: CXR and CT demonstrated cardiomegaly, pulmonary edema. I discussed this AM with patient's family she could rapidly decline given her multiple issues. They would like medical staff to keep them updated of her condition as there are other family members they would like to have present if she declines. Family notes 2 days ago she was walking with a walker and doing alright- Patient's daughter did report that patient is doing much better mentally in the last 3 hours. ER course- IVF, rocephin, blood cultures, urine culture Date of Admission Oct 13, 2017 at 00:01 Date Seen by Provider: Oct 13, 2017 Time Seen by Provider: 06:00 I consulted on this patient on 10/13/17 06:47 Attending Physician Chuy Lee MD Admitting Physician Jazz Bonds MD Consult Allergies and Home Medications Allergies Coded Allergies: Penicillins (Verified Allergy, Mild, 08/05/13) Home Medications Alprazolam 0.25 Mg Tablet, 0.5 TAB PO BID Prescribed by: JAZZ BONDS on 7/10851 Aspirin 81 Mg Tablet.dr, 81 MG PO We, (Reported) TAKES AT NOON Calcium Carbonate/Vitamin D3 1 Each Tablet, 1 TAB PO DAILY, (Reported) Carbidopa/Levodopa 1 Each Tablet, 2 TAB PO BID, (Reported) Carbidopa/Levodopa 1 Each Tablet, 3 TAB PO 1200, (Reported) Cholecalciferol (Vitamin D3) 400 Unit Tablet, 400 UNIT PO DAILY, (Reported) Docusate Sodium 100 Mg Capsule, 100 MG PO BID Prescribed by: JAZZ BONDS on 09/20/17851 Furosemide 20 Mg Tablet, 20 MG PO UD PRN for WEIGHT GAIN >2.5-3 POUNDS, ( Reported) TAKE THREE TIMES A WEEK NEEDED FOR WEIGHT GAIN GREATER THAN 2.5-3 POUNDS Hydrocodone Bit/Acetaminophen 1 Tab Tab, 0.5 TAB PO TID 1/2 tab tid and 1 tab po q 4 hours prn uncontrolled pelvic fx pain Prescribed by: JAZZ BONDS on 09/20/17851 Metoprolol Tartrate 25 Mg Tablet, 12.5 MG PO BID, (Reported) TAKES 1/2 (25MG) TABLET Multivitamin 1 Each Tablet, 1 TAB PO DAILY, (Reported) Nitroglycerin 0.4 Mg Tab.subl, 0.4 MG SL UD PRN for CHEST PAIN, (Reported) [place]-3 Fatty Acids 1,000 Mg Capsule, 1,000 MG PO DAILY, (Reported) Omeprazole 20 Mg Capsule.dr, 20 MG PO BID, (Reported) Potassium Chloride 20 Meq Tab.er.prt, 20 MEQ PO DAILY PRN for WHEN TAKING FUROSEMIDE, (Reported) Rasagiline Mesylate 1 Mg Tablet, 1 MG PO DAILY, (Reported) Sertraline HCl 50 Mg Tablet, 50 MG PO HS, (Reported) Spironolactone 25 Mg Tablet, 25 MG PO DAILY, (Reported) Vitamin B Complex & Vit C No.4 150 Mg Tablet, 150 MG PO DAILY, (Reported) [Calcitonin] 3.7 ML SOLN, 0 ML NA DAILY pt to use one spray per one nostril alternate nostrils daily. use medication 2 weeks then stop Prescribed by: JAZZ BONDS on 09/20/17851 Patient Home Medication List Home Medication List Reviewed: Yes Past Iodabeo-Piowsm-Zzppdz Hx Patient Social History Alcohol Use: Denies Use Recreational Drug Use: No Smoking Status: Never a Smoker 2nd Hand Smoke Exposure: No Physical Abuse Screen: No Sexual Abuse: No Recent Foreign Travel: No Contact w/other who traveled: No Recent Hopitalizations: Yes (FALL PELVIC FX) Recent Infectious Disease Expo: No Immunizations Up To Date Tetanus Booster (TDap): Unknown Pediatric: No Date of Influenza Vaccine: Feb 07, 2017 Seasonal Allergies Seasonal Allergies: No Surgeries Yes (COLON RESECTION FOR CANCER; ERCP FOR OBSTRUCTION SECONDARY TO GALLSTONE; MASTECTOMY FOR BREAST CANCER; EGD/COLONOSOPIES; ) Abdominal, Appendectomy, Breast, Cardiac, Gallbladder, Hysterectomy, Oophorectomy Respiratory Yes (DYSPNEA WITH ANXIETY) Currently Using CPAP: No Currently Using BIPAP: No Cardiovascular Yes (LBBB, CHF) Cardiomyopathy, High Cholesterol, Hypertension Neurological Yes (EPISODES OF CONFUSION) Parkinson's Disease Reproductive System Hx Reproductive Disorders: No Sexually Transmitted Disease: No HIV/AIDS: No Female Reproductive Disorders: Denies Genitourinary Yes (URGENCY; STRESS INCONTINENCE; CHRONIC RENAL INSUFFICIENCY) Renal Failure Gastrointestinal Yes (COLON CANCER; HEPATOMEGALY AND HEPATIC CYSTS) Gastroesophageal Reflux, Diverticulosis, Hiatal Hernia Musculoskeletal Yes (CHRONIC NECK AND SHOULDER PAIN; FALLS; GENERALIZED WEAKNESS; FX RIBS AND SACRUM AND PELVIS 09/2017) Arthritis, Chronic Back Pain Endocrine History of Endocrine Disorders: No HEENT History of HEENT Disorders: Yes (DYSPHAGIA) HEENT Disorders: Cataract Cancer Yes Breast, Colon Did You Recieve Any Treatments: Yes Type of Treatment: Surgical Intervention Psychosocial History of Psychiatric Problem: No Integumentary History of Skin or Integumenta: No Blood Transfusions History of Blood Disorders: No Adverse Reaction to a Blood Tr: No Family Medical History Significant Family History: Cancer Family Hx: Cancer 19 FATHER (BLADDER) 19 MOTHER (LIVER ) Myocardial infarction 19 MOTHER Parkinson's disease 19 FATHER Review of Systems Review of Systems General: No Chills, No Night Sweats HEENT: No Head Aches, No Visual Changes Pulmonary: Dyspnea; No Cough Cardiovascular: No: Chest Pain, Palpitations Gastrointestinal: Nausea, Abdominal Pain (mild) Genitourinary: No Dysuria Musculoskeletal: leg pain (hip pain); No: neck pain Neurological: Weakness Physical Exam Vital Signs Vital Signs - First Documented 10/12/17 10/13/17 21:43 03:58 Temp 97.6 Pulse 107 Resp 35 B/P (MAP) 122/84 (97) Pulse Ox 92 O2 Delivery Nasal Cannula O2 Flow Rate 2.00 FiO2 35 Capillary Refill : Less Than 3 Seconds Height, Weight, BMI Height: 5'9.00" Weight: 138lbs. 2.0oz. 62.436191ov; 20.1 BMI Method:Stated General Appearance: Anxious, Mild Distress HEENT: PERRL/EOMI Neck: Full Range of Motion, Non Tender, Supple Respiratory: Chest Non Tender, Decreased Breath Sounds (bases), Other ( tachyneic) Cardiovascular: No Edema, Tachycardia (sinus) Gastrointestinal: Tenderness (minimal) Rectal: Deferred Back: No CVA Tenderness Extremity: Non Tender, No Calf Tenderness, No Pedal Edema Neurologic/Psychiatric: Alert, Disoriented (makes comments - not completely obsurd as family could explain most of her off topic comments) Skin: Cool, Other (feet are blueish but improved) Assessment/Plan Assessment/Plan Admission Dx sepsis due to UTI Admission Status: Inpatient Order (span 2 midnights) Reason for Inpatient Admission: sepsis due to UTI acute respiratory distress lactic acidosis given the above reasons she has become ill quickly - she will require IV fluids, IV antibiotics and close monitoring. Assessment and Plan continue rocephin- monitor vitals- awaiting urine culture IVF turned down to 50cc/hr and iv lasix given as pt respiratory condition has worsened with IVF -attributed to her heart- she is requiring more respiratory support- of note though pt's tends to be a shallow breather and her respiratory rate is usually fast with it increasing as she gets nervous. ABG unremarkable. -measures in place to correct hyperkalemia- insulin/glucose, lasix -lactic acidosis has increased a little- attributed to her sepsis and her breathing pattern. Will continue fluids at 50cc/hr, she will have a regular diet. -will given pt a dose of hydrocodone as this was stopped yesterday and she may be having a little bit of withdrawal. -pt also take xanax BID - will continue this. Dispo: condition guarded given multiple issues of UTI, heart failure, pulmonary edema, age, recent decline in health (including a fall and hip fracture). DVT ppx: lovenox Code status: DNR Will keep family updates of her care and my recommendations- Family is very involved and do a good job with staying informed. Family is understandable of current status of guarded. 10/13/17- rechecking lactic acid and bmp today. Obtaining better IV access - order for midline placed. Problems: (1) Sepsis due to urinary tract infection Assessment & Plan: rocephin (2) Acute respiratory distress Assessment & Plan: RT vapotherm (3) Hyperkalemia Assessment & Plan: correcting (4) Lactic acidosis (5) Parkinson disease Assessment & Plan: continue home medication (6) Acute on chronic combined systolic and diastolic CHF (congestive heart failure) Assessment & Plan: lasix daily most recent ECHO June 2016 LVEF 30-35%- with Dr. García Clinical Quality Measures DVT/VTE Risk/Contraindication: Risk Factor Score Per Nursin RFS Level Per Nursing on Admit: 4+=Very High CHUY LEE MD Oct 13, 2017 06:59
--- NOTE | 2017-10-13 07:01 | Diagnostic Imaging Report ---
INDICATION: Cardiomegaly, bibasilar atelectasis, nausea, increased respiratory rate and vomiting. COMPARISON STUDY: Chest from 09/23/2017. FINDINGS: Portable view of the chest demonstrates cardiomegaly with pulmonary congestion. A mass along the right heart border is present. This was seen to be a hernia. Small bilateral effusions are present. IMPRESSION: There is cardiomegaly and pulmonary congestion and small bilateral pleural effusions. Mass along the right heart border is seen to be a hernia. Dictated by: Dictated on workstation # [id number]
--- NOTE | 2017-10-13 07:16 | Diagnostic Imaging Report ---
PROCEDURE: CT abdomen and pelvis without contrast. TECHNIQUE: Multiple contiguous axial images were obtained through the abdomen and pelvis without the use of intravenous contrast. INDICATION: Nausea, increased respiratory rate, vomiting, breathing faster COMPARISON STUDY: CT of the chest from 09/23/2017. FINDINGS: Severe cardiomegaly is again identified. Bilateral pleural effusions have slightly increased on the left side. Large hiatal hernia is present going to the right side. Mild infiltrates or atelectasis are present in the lung bases. Multiple hepatic cysts are again identified. The gallbladder is absent. The liver is enlarged. There appears to be some mild periportal edema which is not mentioned. The spleen, pancreas, adrenal glands and kidneys are normal. Bowel loops appear unremarkable. Some diverticula are present. There is no ascites or free air. There are again seen to be fractures of the right superior pubic ramus near the acetabulum and the inferior pubic ramus. Mild callus formation is present. There are fractures of the sacral ala bilaterally and the S2 vertebrae. These were present previously. IMPRESSION: 1. Large hiatal hernia is again identified 2. Bilateral pleural effusions have slightly increased on the left. Mild bibasilar infiltrates are present. 3. The gallbladder is absent. Some periportal edema and hepatomegaly are present. 4. Diverticulosis. 5. Pelvic fractures are again identified. Some early callus formation is present. Dictated by: Dictated on workstation # [id number]
[2017-10-13] MEDS: ENOXAPARIN 40 MG/0.4 ML (LOVENOX) SYR SQ SCH (08:31)
[2017-10-13] MEDS: PANTOPRAZOLE 40 MG/10 ML (PROTONIX) VIAL IV SCH (08:32)
[2017-10-13] MEDS ORDERED: ALPR0.25 PO ×2 (09:00)
[2017-10-13] MEDS ORDERED: LIDO76.5 TP (09:00)
[2017-10-13] MEDS ORDERED: MAG-10 PO (09:00)
[2017-10-13] MEDS ORDERED: MEGE400O21 PO (09:00)
[2017-10-13] MEDS ORDERED: HYDR-3812 PO ×2 (09:00)
[2017-10-13] MEDS ORDERED: MAGN400O7 PO (09:00)
[2017-10-13] MEDS ORDERED: BISA10SU6 RC (09:00)
[2017-10-13] MEDS ORDERED: DOCU-143 PO (09:00)
[2017-10-13] MEDS ORDERED: ACET-2267 PO (09:00)
[2017-10-13] MEDS ORDERED: CALC3.8S (09:00)
--- NOTE | 2017-10-13 09:05 | Physical Therapy Evaluation ---
PT Evaluation-General Medical Diagnosis Admission Date Oct 13, 2017 at 00:01 Medical Diagnosis: UTI Onset Date: Oct 12, 2017 Therapy Diagnosis Therapy Diagnosis: impaired mobility, strength, endurance Height/Weight Height (Feet): 5 Height (Inches): 9.00 Weight (Pounds): 138 Weight (Ounces): 2.0 Precautions Precautions/Isolations: Fall Prevention, Standard Precautions Weight Bear Status Right Lower Extremity: Right Weight Bearing/Tolerated Left Lower Extremity: Left Weight Bearing/Tolerated Referral Physician: Chuy De La Cruz MD Reason for Referral: Evaluation/Treatment Medical History Pertinent Medical History: COPD, GERD, HTN, Parkinson's Additional Medical History Surgeries Yes (COLON RESECTION FOR CANCER; ERCP FOR OBSTRUCTION SECONDARY TO GALLSTONE; MASTECTOMY FOR BREAST CANCER; EGD/COLONOSOPIES; ) Abdominal, Appendectomy, Breast, Cardiac, Gallbladder, Hysterectomy, Oophorectomy Respiratory Yes (DYSPNEA WITH ANXIETY) Currently Using CPAP: No Currently Using BIPAP: No Cardiovascular Yes (LBBB, CHF) Cardiomyopathy, High Cholesterol, Hypertension Neurological Yes (EPISODES OF CONFUSION) Parkinson's Disease Reproductive System Hx Reproductive Disorders: No Sexually Transmitted Disease: No HIV/AIDS: No Female Reproductive Disorders: Denies Genitourinary Yes (URGENCY; STRESS INCONTINENCE; CHRONIC RENAL INSUFFICIENCY) Renal Failure Gastrointestinal Yes (COLON CANCER; HEPATOMEGALY AND HEPATIC CYSTS) Gastroesophageal Reflux, Diverticulosis, Hiatal Hernia Musculoskeletal Yes (CHRONIC NECK AND SHOULDER PAIN; FALLS; GENERALIZED WEAKNESS; FX RIBS AND SACRUM AND PELVIS 09/2017) Arthritis, Chronic Back Pain Reviewed History: Yes Social History Home: Correction Prior/Core FIM Prior Level of Function Functional [place] Measure 0=Not Assessed/NA 4=Minimal Assistance 1=Total Assistance 5=Supervision or Setup 2=Maximal Assistance 6=Modified [place] 3=Moderate Assistance 7=Complete [place] Unsure exactly of prior mobility but she seems to have been ambulating with a rolling walker PT Evaluation-Current Subjective Patient in bed pre tx, agrees to PT, no complaints of pain, family in the room. Pt/Family Goals none stated Objective Patient Orientation: Person, Confused Attachments: IV ROM/Strength ROM Lower Extremities small bilateral knee contractures Strength Lower Extremities 3+/5 bilaterally in LE Neuromuscular (Tone, Coordination, Reflexes) NT Sensory Vision: Wears Glasses Hearing: Functional Sensation Right Lower Extremit: Intact Sensation Left Lower Extremity: Intact Transfers Functional [place] Measure 0=Not Assessed/NA 4=Minimal Assistance 1=Total Assistance 5=Supervision or Setup 2=Maximal Assistance 6=Modified [place] 3=Moderate Assistance 7=Complete [place] Transfers (B, C, W/C) (FIM): 2 Scootin Rollin Supine to/from Sit: 3 Sit to/from Stand: 3 Balance Sitting Static: Fair Sitting Dynamic: Fair Standing Static: Poor Standing Dynamic: Poor Treatment Patient stood at the edge of the bed x3 for about 30 seconds each time. She also performed supine LE exercises x15 (AP, QS, HS) Assessment/Needs Patient has impaired mobility, strength, endurance post UTI. She cannot ambulate at this time and has difficulty just standing at the edge of the bed. Rehab Potential: Guarded PT Short Term Goals Short Term Goals Time Frame: Oct 20, 2017 Transfers (B,C,W/C) (FIM): 4 Gait (FIM): 1 Gait Distance Comment: 20' Gait Level of Assist: 4 Gait Assistive Device: FWW PT Plan Problem List Problem List: Activity Tolerance, Functional Strength, Safety, Balance, Gait, Transfer, Bed Mobility, ROM Treatment/Plan Treatment Plan: Continue Plan of Care Treatment Plan: Bed Mobility, Concurrent Therapy, Education, Functional Activity Azucena, Functional Strength, Gait, Safety, Therapeutic Exercise, Transfers Treatment Duration: Oct 20, 2017 Frequency: 6 times per week Estimated Hrs Per Day: .25 hour per day (15-30') Patient and/or Family Agrees t: Yes Safety Risks/Education Patient Education: Transfer Techniques, Correct Positioning, Safety Issues Teaching Recipient: Patient Teaching Methods: Demonstration, Discussion Response to Teaching: Reinforcement Needed Discharge Recommendations Plan Patient will perform bed mobility and transfer training, balance and endurance training, functional strengthening, stair training, gait training, and education , to improve functional mobility and independence at home. Therapy D/C Recommendations: Home w/ Family Support, [facility] (TCU/[facility]) Time/GCodes Time In: 08 Time Out: 08 Total Billed Treatment Time: 20 Total Billed Treatment 1 visit [facility] 20' ABDIFATAH WILLIS PT Oct 13, 2017 09:05
[2017-10-13 11:29] LABS: CREATININE SERUM 1.07 MG/DL (0.60-1.30); POTASSIUM 4.3 MMOL/L (3.6-5.0)
[2017-10-13] MEDS ORDERED: NS (IVPB) 50 ML ONE (17:10)
[2017-10-13] MEDS ORDERED: cefTRIAXone 1 GM (ROCEPHIN) VIAL ONE (17:10)
[2017-10-13] MEDS ORDERED: BISACODYL 10 MG SUPP (DULCOLAX) RC PRN (17:15)
[2017-10-13] MEDS ORDERED: BUMETANIDE 1 MG/4 ML (BUMEX) VIAL IV NR (17:15)
[2017-10-13] MEDS: lisINopril 5 MG (PRINIVIL) TABLET PO SCH (17:32)
[2017-10-13] MEDS: cefTRIAXone 1 GM/NS 50 ML IVPB IV SCH ×2 (18:01)
[2017-10-13] MEDS ORDERED: ONDANSETRON 4 MG/2 ML (SDV) Z0FRAN IVP PRN (19:00)
[2017-10-13] MEDS ORDERED: LEVODOPA PO SCH (21:00)
[2017-10-13] MEDS ORDERED: [UNRECOGNIZED DRUG - OTHER] PO SCH (21:00)
[2017-10-13] MEDS ORDERED: CARBIDOPA PO SCH (21:00)
[2017-10-13] MEDS: ALPRAZolam 0.25 MG (XANAX) TAB PO SCH (21:27)
[2017-10-13] MEDS: SINEMET 25/100 (CARBIDOPA/LEVODOPA) TAB PO SCH (21:27)
[2017-10-13] MEDS: DOCUSATE SODIUM 100 MG (COLACE) CAP PO SCH (21:27)
[2017-10-14] VITALS (8 sets, daily range): BP systolic 111–131; BP diastolic 59–72
[2017-10-14] MEDS: RT-ALBUTEROL/IPRATROPIUM 3 ML (DUONEB) VIAL INH SCH ×6 (02:19→21:38)
[2017-10-14 06:10] LABS: BASOPHILS % (AUTO) 0 % (0-10); EOSINOPHILS % (AUTO) 1 % (0-10); HEMATOCRIT 33 % (35-52); HEMOGLOBIN 10.9 G/DL (11.5-16.0); LYMPHOCYTES # (AUTO) 0.7 X 10^3 (1.0-4.0); LYMPHOCYTES % (AUTO) 10 % (12-44); MEAN CORPUSCULAR HEMOGLOBIN 28 PG (25-34); MEAN CORPUSCULAR HGB CONC 33 G/DL (32-36); MEAN CORPUSCULAR VOLUME 85 FL (80-99); MEAN PLATELET VOLUME 9.2 FL (7.4-10.4); MONOCYTES # (AUTO) 0.7 X 10^3 (0.0-1.0); MONOCYTES % (AUTO) 11 % (0-12); NEUTROPHILS # (AUTO) 5.4 X 10^3 (1.8-7.8); NEUTROPHILS % (AUTO) 79 % (42-75); PLATELET COUNT 170 10^3/uL (130-400); RED BLOOD COUNT 3.87 10^6/uL (4.35-5.85); RED CELL DISTRIBUTION WIDTH 18.3 % (10.0-14.5); WHITE BLOOD COUNT 6.9 10^3/uL (4.3-11.0)
[2017-10-14 06:23] LABS: BUN/CREATININE RATIO 32; CARBON DIOXIDE 23 MMOL/L (21-32); CHLORIDE 103 MMOL/L (98-107); CREATININE SERUM 0.84 MG/DL (0.60-1.30); GFR ESTIMATED > 60; GLUCOSE 105 MG/DL (70-105); POTASSIUM 3.4 MMOL/L (3.6-5.0); SODIUM 138 MMOL/L (135-145)
[2017-10-14] MEDS: ENOXAPARIN 40 MG/0.4 ML (LOVENOX) SYR SQ SCH (07:15)
--- NOTE | 2017-10-14 07:55 | Diagnostic Imaging Report ---
INDICATION: CHF. Pulmonary edema. Shortness of air. COMPARISON: 10/12/2017 FINDINGS: Single frontal radiographic view of the chest was obtained and demonstrates persistent mild cardiomegaly and mild pulmonary vascular congestion. There has, however, been interval improved aeration with diminished interstitial opacities. Probable small bibasilar effusions persist, left greater than right. No pneumothorax is seen on either side. Bony structures are unchanged. IMPRESSION: 1. Probable improved interstitial pulmonary edema. 2. Residual cardiomegaly, pulmonary vascular congestion, and probable small bibasilar effusions. Dictated by: Dictated on workstation # [id number]
--- NOTE | 2017-10-14 08:38 | Progress Note (SOAP) ---
Subjective Subjective Date Seen by Provider: Oct 14, 2017 Time Seen by Provider: 08:00 82 yo F she is much improved- on room air- diuresing well- with resolution of lactic acidosis. Pt is still very confused though. will stop hydrocodone to see if it helps. Pt wanting to get up and get back to walking but right now she feels to weak. good appetite. CXR improved. Review of Systems General: No Chills, No Night Sweats HEENT: No Head Aches, No Visual Changes Pulmonary: Dyspnea; No Cough Cardiovascular: No: Chest Pain, Palpitations Gastrointestinal: Nausea; No: Abdominal Pain (mild) Genitourinary: No Dysuria Musculoskeletal: leg pain (hip pain); No: neck pain Neurological: Weakness Objective Exam Vital Signs Vital Signs - First Documented 10/12/17 10/13/17 21:43 03:58 Temp 97.6 Pulse 107 Resp 35 B/P (MAP) 122/84 (97) Pulse Ox 92 O2 Delivery Nasal Cannula O2 Flow Rate 2.00 FiO2 35 Capillary Refill : Less Than 3 Seconds General Appearance: Anxious, Mild Distress HEENT: PERRL/EOMI Neck: Full Range of Motion, Non Tender, Supple Respiratory: Chest Non Tender, Decreased Breath Sounds (bases), Other ( tachyneic) Cardiovascular: No Edema, Tachycardia (sinus) Gastrointestinal: Tenderness (minimal) Rectal: Deferred Back: No CVA Tenderness Extremity: Non Tender, No Calf Tenderness, No Pedal Edema Neurologic/Psychiatric: Alert, Disoriented (makes comments - not completely obsurd as family could explain most of her off topic comments) Skin: Cool, Other (feet are blueish but improved) Results Lab Laboratory Tests 10/13/17 11:03: Sodium Level 140, Potassium Level 4.3, Chloride Level 105, Carbon Dioxide Level 22, Anion Gap 13, Blood Urea Nitrogen 32H, Creatinine 1.07, Estimat Glomerular Filtration Rate 49, BUN/Creatinine Ratio 30, Glucose Level 104, Lactic Acid Level 4.14*H, Calcium Level 10.0 10/13/17 17:23: Lactic Acid Level 1.52 10/14/17 05:40: Sodium Level 138, Potassium Level 3.4L, Chloride Level 103, Carbon Dioxide Level 23, Anion Gap 12, Blood Urea Nitrogen 27H, Creatinine 0.84, Estimat Glomerular Filtration Rate > 60, BUN/Creatinine Ratio 32, Glucose Level 105, Calcium Level 9.0, White Blood Count 6.9, Red Blood Count 3.87L, Hemoglobin 10.9L, Hematocrit 33L, Mean Corpuscular Volume 85, Mean Corpuscular Hemoglobin 28, Mean Corpuscular Hemoglobin Concent 33, Red Cell Distribution Width 18.3H, Platelet Count 170, Mean Platelet Volume 9.2, Neutrophils (%) (Auto) 79H, Lymphocytes (%) (Auto) 10L, Monocytes (%) (Auto) 11, Eosinophils (%) (Auto) 1, Basophils (%) (Auto) 0, Neutrophils # (Auto) 5.4, Lymphocytes # (Auto) 0.7L, Monocytes # (Auto) 0.7, Eosinophils # (Auto) 0.0, Basophils # (Auto) 0.0, B- Type Natriuretic Peptide 3093.6H Microbiology 10/12/17 Blood Culture - Preliminary, Resulted No growth 10/12/17 Urine Culture - Preliminary, Resulted See Comments Assessment/Plan Assessment/Plan Admission Dx sepsis due to UTI Assessment and Plan IVF stopped (10/13/17) as patient is having an acute on chronic systolic CHF exacerbation- starting diuresis- this also likely contributed to her lactic acid going up to 4, which quickly came back down to 1.5 with diuresis. -discussed with patient and daughter consideration of a repeat echo and cardiology referral- they would like to hold off and just continue with Dr. Bonds- Pt has seen Dr. García in the past year and the plan at that time was to continue with medical management and not pursue any interventions such as a pacemaker. Patient is content. will continue rocephin- 10/12/17 --> for her UTI; awaiting final culture. Hyperkalemia - now hypokalemia with diuresis. -lactic acidosis - normalized with diuresis and treating her uti. Dispo: condition much improved- but still has systolic and diastolic heart failure. DVT ppx: lovenox Code status: DNR - Family is very involved and do a good job with staying informed. Family is understandable of current status of her CHF. -rechecking labs in AM- correct K as indicated. -will need to be discharged on added medicine- lisinopril and daily lasix until follow up with Dr. Bonds. -continue diuresing over weekend and monitor mental status- Pt's daughter reports she is still quite confused as she is normally very clear thinking. -right arm midline will need to be removed prior to discharge. PT/OT/ST to be continued at [facility] on discharge. Plan to discharge to [facility] TuesdayOct 17. Problems: (1) Sepsis due to urinary tract infection Assessment & Plan: rocephin (2) Acute respiratory distress Assessment & Plan: RT IS (3) Hyperkalemia Assessment & Plan: correcting (4) Lactic acidosis (5) Parkinson disease Assessment & Plan: continue home medication (6) Acute on chronic combined systolic and diastolic CHF (congestive heart failure) Assessment & Plan: lasix daily most recent ECHO June 2016 LVEF 30-35%- with Dr. García (7) Altered mental status Qualifiers: Admission Dx sepsis due to UTI Clinical Quality Measures Admission Status Admission Dx sepsis due to UTI DVT/VTE Risk/Contraindication: Risk Factor Score Per Nursin RFS Level Per Nursing on Admit: 4+=Very High PAUL LEE MD Oct 14, 2017 08:38
[2017-10-14] MEDS: SINEMET 25/100 (CARBIDOPA/LEVODOPA) TAB PO SCH ×3 (09:15→20:41)
[2017-10-14] MEDS: FUROSEMIDE 40 MG/4 ML INJ (LASIX) IVP SCH (09:15)
[2017-10-14] MEDS: DOCUSATE SODIUM 100 MG (COLACE) CAP PO SCH ×2 (09:15→20:41)
[2017-10-14] MEDS: PANTOPRAZOLE 40 MG/10 ML (PROTONIX) VIAL IV SCH (09:15)
[2017-10-14] MEDS: lisINopril 5 MG (PRINIVIL) TABLET PO SCH (09:15)
[2017-10-14] MEDS: ALPRAZolam 0.25 MG (XANAX) TAB PO SCH ×2 (09:15→20:41)
[2017-10-14] MEDS: SPIRONOLACTONE 25 MG (ALDACTONE) TAB PO SCH (09:15)
[2017-10-14] MEDS: CALCITONIN NASAL 200 INTLU/AC (FORTICAL) 3.7 ML BTL SCH (09:16)
--- NOTE | 2017-10-14 09:38 | Physical Therapy Daily Note ---
PT Daily Note-Current Subjective Patient in bed pre tx, agrees to PT, no complaints of pain. Appearance Patient in recliner post tx with legs elevated, has nurse call, phone, tray, chair alarm on, all needs met. Mental Status Patient Orientation: Person, Confused Transfers Functional [place] Measure 0=Not Assessed/NA 4=Minimal Assistance 1=Total Assistance 5=Supervision or Setup 2=Maximal Assistance 6=Modified [place] 3=Moderate Assistance 7=Complete IndependenceIRFPAI Quality Coding Scale 6 Independent with activity with or without an assistive device 5 Patient requires set up or clean up by helper. Patient completes activity by themselves 4 Supervision or touching assist (CGA). [place] provide cues , steadying assist 3 The helper provides less than half the effort to complete the activity 2 The helper provides more than half the effort to complete the activity 1 Dependent. The helper does all the effort to complete an activity 7 Patient refused to complete or attempt activity 9 The patient did not perform the activity before the current illness or injury 88 Not attempted due to Medical conditions or safety concerns Transfers (B, C, W/C) (FIM): 2 Scootin Rollin Supine to/from Sit: 4 Sit to/from Stand: 3 Bed to/from Chair: 3 Weight Bearing Right Lower Extremity: Right Weight Bearing/Tolerated Left Lower Extremity: Left Weight Bearing/Tolerated Gait Training Gait (FIM): 1 Distance: 4' Gait Level of Assist: 3 Gait Persons Needed: 1 Gait Assistive Device: None Patient ambulated from the bed to the chair with mod assist, therapist in front of patient holding onto belt, patient holding on to therapist arms, therapist guiding patient over to chair. Patient had severe festinating gait and was retropulsive. Exercises Seated Therapy Exercises: Ankle pumps, Long arc quads Seated Reps: 15 Treatments bed mobility and transfers, ambulation, functional strengthening/ROM Assessment Current Status: Fair Progress no change in transfers but patient was able to ambulate a very short distance today PT Short Term Goals Short Term Goals Time Frame: Oct 20, 2017 Transfers (B,C,W/C) (FIM): 4 Gait (FIM): 1 Gait Distance Comment: 20' Gait Level of Assist: 4 Gait Assistive Device: FWW PT Plan Problem List Problem List: Activity Tolerance, Functional Strength, Safety, Balance, Gait, Transfer, Bed Mobility, ROM Treatment/Plan Treatment Plan: Continue Plan of Care Treatment Plan: Bed Mobility, Concurrent Therapy, Education, Functional Activity Azucena, Functional Strength, Gait, Safety, Therapeutic Exercise, Transfers Treatment Duration: Oct 20, 2017 Frequency: 6 times per week Estimated Hrs Per Day: .25 hour per day (15-30') Patient and/or Family Agrees t: Yes Safety Risks/Education Patient Education: Gait Training, Transfer Techniques, Correct Positioning, Safety Issues Teaching Recipient: Patient Teaching Methods: Demonstration, Discussion Response to Teaching: Reinforcement Needed Time/GCodes Time In: 914 Time Out: 929 Total Billed Treatment Time: 15 Total Billed Treatment 1 visit FA 15' ABDIFATAH WILLIS PT Oct 14, 2017 09:38
[2017-10-14] MEDS ORDERED: KCL 10 MEQ TAB (MICRO K) PO ONE (10:03)
[2017-10-14] MEDS: meTOprolol TARTRATE 25 MG (LOPRESSOR) TABLET PO SCH ×2 (10:07→20:41)
[2017-10-14] MEDS: KCL 10 MEQ TAB (MICRO K) PO SCH (10:07)
[2017-10-14] MEDS ORDERED: LEVODOPA PO SCH (12:00)
[2017-10-14] MEDS ORDERED: [UNRECOGNIZED DRUG - OTHER] PO SCH (12:00)
[2017-10-14] MEDS ORDERED: CARBIDOPA PO SCH (12:00)
--- NOTE | 2017-10-14 12:02 | Occupational Therapy Eval ---
OT Evaluation-General/PLF Medical Diagnosis Admission Date Oct 13, 2017 at 00:01 Medical Diagnosis: UTI Onset Date: Oct 12, 2017 Therapy Diagnosis Therapy Diagnosis: weakness, unsteadiness when standing Height/Weight Height (Feet): 5 Height (Inches): 9.00 Weight (Pounds): 133 Weight (Ounces): 5.0 Precautions Precautions/Isolations: Fall Prevention, Standard Precautions Safety Interventions: Reorient-PRN Weight Bear Status Weight Bearing Restriction: Weight Bearing/Tolerated Referral Physician: Chuy De La Cruz MD Referral Reason: Activity Tolerance, Self Care, Evaluation/Treatment, Strengthening/ROM Medical History Pertinent Medical History: COPD, GERD, HTN, Parkinson's Additional Medical History Pt had a recent fall in September with resultant pelvic fracture. The pt was receiving therapy services at [facility] prior to onset of UTI with sepsis. Prior to her fall in September, the pt was living at home with her where he was assisting her with all self cares. Social History Home: Intermediate OT Current Status Subjective Pt with no complaints of pain this date. Mental Status/Objective Patient Orientation: Person, Place, Eyes Open, Situation Attachments: Oxygen Current Upper Extremity ROM WFL Upper Extremity Coordination WFL Upper Extremity Sensation WFL Upper Extremity Strength 3+/5 ADL-Treatment Functional [place] Measure 0=Not Assessed/NA 4=Minimal Assistance 1=Total Assistance 5=Supervision or Setup 2=Maximal Assistance 6=Modified [place] 3=Moderate Assistance 7=Complete IndependenceIRFPAI Quality Coding Scale 6 Independent with activity with or without an assistive device 5 Patient requires set up or clean up by helper. Patient completes activity by themselves 4 Supervision or touching assist (CGA). [place] provide cues , steadying assist 3 The helper provides less than half the effort to complete the activity 2 The helper provides more than half the effort to complete the activity 1 Dependent. The helper does all the effort to complete an activity 7 Patient refused to complete or attempt activity 9 The patient did not perform the activity before the current illness or injury 88 Not attempted due to Medical conditions or safety concerns Grooming (FIM): 4 Upper Body Dressing (FIM): 2 Lower Body Dressing (FIM): 2 Toileting (FIM): 2 Transfers (B, C, W/C) (FIM): 3 Toilet/Commode Transfer (FIM): 3 Education OT Patient Education: Energy conservation, Modified ADL techniques, Reviewed precautions, Rehab process, Safety issues, Transfer techniques Teaching Recipient: Patient, Family Teaching Methods: Demonstration, Discussion Response to Teaching: Verbalize Understanding, Return Demonstration OT Short Term Goals Short Term Goals Time Frame: Oct 21, 2017 Grooming(FIM): 5 Upper Body Dressing(FIM): 5 Lower Body Dressing(FIM): 4 Toileting(FIM): 4 Transfers (B,C,W/C) (FIM): 5 Toilet/Commode Transfer(FIM): 5 1=Demonstrate adherence to instructed precautions during ADL tasks. 2=Patient will verbalize/demonstrate understanding of assistive devices/ modifications for ADL. 3=Patient will improve strength/tolerance for activity to enable patient to perform ADL's. OT Senior Care Goals Machine Erector Goals Time Frame: Oct 28, 2017 Upper Body Dressing(FIM): 6 Lower Body Dressing(FIM): 6 Toileting(FIM): 6 Transfers (B,C,W/C) (FIM): 6 Toilet/Commode Transfer(FIM): 6 1=Demonstrate adherence to instructed precautions during ADL tasks. 2=Patient will verbalize/demonstrate understanding of assistive devices/ modifications for ADL. 3=Patient will improve strength/tolerance for activity to enable patient to perform ADL's. OT Education/Plan Problem List/Assessment Assessment: Decreased Activ Tolerance, Decreased Safety Aware, Decreased UE Strength, Impaired Coordination, Impaired Funct Balance, Impaired Self-Care Skills Discharge Recommendations Plan/Recommendations: Continue POC Therapy D/C Recommendations: Halfway (TCU/NH) Comment Pt's states that he would like to see her get well enough to discharge to [facility], resume therapy, and eventually discharge home with him, [place] with ADLs. Treatment Plan/Plan of Care Patient would benefit from OT for education, treatment and training to promote independence in ADL's, mobility, safety and/or upper extremity function for ADL' s. Plan of Care: ADL Retraining, Group Exercise/Act as Ind, UE Funct Exercise/Act , UE Neuromus Re-Ed/Coord Treatment Duration: Oct 28, 2017 Frequency: 6 times per week Estimated Hrs Per Day: .25 hour per day Rehab Potential: Guarded Time/GCodes Start Time: 11:25 Stop Time: 12:05 Total Time Billed (hr/min): 40 Billed Treatment Time KYLE, YAMILET, 2ADARRIN PRECIADO OT Oct 14, 2017 12:02
[2017-10-14] MEDS ORDERED: PATIENT MAY USE OWN MEDS, ALL MC SCH (16:00)
--- NOTE | 2017-10-14 16:02 | Speech Therapy Progress Note ---
Therapy Progress Note Attempted to see pt x2 and was unable to perform assessment as she was with other staff. PARAG COYLE Oct 14, 2017 16:02
[2017-10-14] MEDS: RASAGILINE 1 MG TAB PO SCH (16:19)
[2017-10-15] MEDS: cefTRIAXone 1 GM/NS 50 ML IVPB IV SCH ×2 (00:12)
[2017-10-15] MEDS: RT-ALBUTEROL/IPRATROPIUM 3 ML (DUONEB) VIAL INH SCH ×6 (02:06→22:31)
[2017-10-15 06:11] LABS: BASOPHILS % (AUTO) 0 % (0-10); EOSINOPHILS # (AUTO) 0.2 10^3/uL (0.0-0.3); EOSINOPHILS % (AUTO) 3 % (0-10); HEMATOCRIT 34 % (35-52); LYMPHOCYTES # (AUTO) 0.7 X 10^3 (1.0-4.0); LYMPHOCYTES % (AUTO) 12 % (12-44); MEAN CORPUSCULAR HEMOGLOBIN 28 PG (25-34); MEAN CORPUSCULAR HGB CONC 32 G/DL (32-36); MEAN CORPUSCULAR VOLUME 86 FL (80-99); MEAN PLATELET VOLUME 9.2 FL (7.4-10.4); MONOCYTES # (AUTO) 0.8 X 10^3 (0.0-1.0); MONOCYTES % (AUTO) 13 % (0-12); NEUTROPHILS # (AUTO) 4.2 X 10^3 (1.8-7.8); NEUTROPHILS % (AUTO) 72 % (42-75); PLATELET COUNT 189 10^3/uL (130-400); RED CELL DISTRIBUTION WIDTH 18.7 % (10.0-14.5); WHITE BLOOD COUNT 5.8 10^3/uL (4.3-11.0)
[2017-10-15 06:15] VITALS: BP 112/62
[2017-10-15] MEDS: KCL 10 MEQ TAB (MICRO K) PO SCH (06:16)
[2017-10-15] MEDS: ENOXAPARIN 40 MG/0.4 ML (LOVENOX) SYR SQ SCH (06:17)
[2017-10-15 06:32] LABS: ALBUMIN 3.1 GM/DL (3.2-4.5); BUN/CREATININE RATIO 31; CARBON DIOXIDE 26 MMOL/L (21-32); CHLORIDE 103 MMOL/L (98-107); CREATININE SERUM 0.67 MG/DL (0.60-1.30); GFR ESTIMATED > 60; GLUCOSE 94 MG/DL (70-105); MAGNESIUM 1.7 MG/DL (1.8-2.4); PHOSPHORUS 2.5 MG/DL (2.3-4.7); POTASSIUM 3.7 MMOL/L (3.6-5.0); SODIUM 138 MMOL/L (135-145)
[2017-10-15 08:00] VITALS: BP 112/62
[2017-10-15] MEDS: lisINopril 5 MG (PRINIVIL) TABLET PO SCH (09:13)
[2017-10-15] MEDS: SPIRONOLACTONE 25 MG (ALDACTONE) TAB PO SCH (09:13)
[2017-10-15] MEDS: FUROSEMIDE 40 MG/4 ML INJ (LASIX) IVP SCH (09:13)
[2017-10-15] MEDS: DOCUSATE SODIUM 100 MG (COLACE) CAP PO SCH ×2 (09:13→20:00)
[2017-10-15] MEDS: meTOprolol TARTRATE 25 MG (LOPRESSOR) TABLET PO SCH ×2 (09:14→20:00)
[2017-10-15] MEDS: PANTOPRAZOLE 40 MG (PROTONIX) TAB PO SCH (09:14)
[2017-10-15] MEDS: ALPRAZolam 0.25 MG (XANAX) TAB PO SCH ×2 (09:14→20:00)
[2017-10-15] MEDS: SINEMET 25/100 (CARBIDOPA/LEVODOPA) TAB PO SCH ×3 (09:14→20:00)
[2017-10-15] MEDS: ACETAMINOPHEN 500 MG TAB (TYLENOL) PO PRN (09:15)
[2017-10-15] MEDS: CALCITONIN NASAL 200 INTLU/AC (FORTICAL) 3.7 ML BTL SCH (09:17)
[2017-10-15] MEDS: RASAGILINE 1 MG TAB PO SCH (09:17)
--- NOTE | 2017-10-15 10:12 | Physical Therapy Daily Note ---
PT Daily Note-Current Subjective States that she is not feeling well today. Mental Status Patient Orientation: Confused Transfers Functional [place] Measure 0=Not Assessed/NA 4=Minimal Assistance 1=Total Assistance 5=Supervision or Setup 2=Maximal Assistance 6=Modified [place] 3=Moderate Assistance 7=Complete IndependenceIRFPAI Quality Coding Scale 6 Independent with activity with or without an assistive device 5 Patient requires set up or clean up by helper. Patient completes activity by themselves 4 Supervision or touching assist (CGA). [place] provide cues , steadying assist 3 The helper provides less than half the effort to complete the activity 2 The helper provides more than half the effort to complete the activity 1 Dependent. The helper does all the effort to complete an activity 7 Patient refused to complete or attempt activity 9 The patient did not perform the activity before the current illness or injury 88 Not attempted due to Medical conditions or safety concerns Transfers (B, C, W/C) (FIM): 4 Scootin Rollin Supine to/from Sit: 4 Sit to/from Stand: 4 Weight Bearing Right Lower Extremity: Right Weight Bearing/Tolerated Left Lower Extremity: Left Weight Bearing/Tolerated Assessment Current Status: Good Progress Patient was very weak today and had difficulty with transfers. Patient also had some confusion. PT Short Term Goals Short Term Goals Time Frame: Oct 20, 2017 Transfers (B,C,W/C) (FIM): 5 Gait (FIM): 1 Gait Distance Comment: 20' Gait Level of Assist: 4 Gait Assistive Device: FWW PT Plan Treatment/Plan Treatment Plan: Continue Plan of Care Treatment Plan: Bed Mobility, Concurrent Therapy, Education, Functional Activity Azucena, Functional Strength, Gait, Safety, Therapeutic Exercise, Transfers Treatment Duration: Oct 20, 2017 Frequency: 6 times per week Estimated Hrs Per Day: .25 hour per day (15-30') Patient and/or Family Agrees t: Yes Time/GCodes Time In: 0950 Time Out: 1000 Total Billed Treatment Time: 10 Total Billed Treatment 1, FA x 10 MIRANDA RAYGOZA PT Oct 15, 2017 10:12
--- NOTE | 2017-10-15 11:09 | Progress Note-Hospitalist ---
Subjective HPI/CC On Admission Date Seen by Provider: Oct 15, 2017 Time Seen by Provider: 11:03 Subjective/Events-last exam Mrs. Pro was pleasant and appeared to be in no acute distress upon my arrival. She voices no complaints. She had no recollection but upon her discharge from the hospital last month she had been residing at via [facility] [place] thought she had been at home but wasn't sure. She denies chest pain shortness of breath or nausea. There was no reports of orthopnea or shortness of breath last night per staff. Focused Exam Lactate Level 10/13/17 07:00: Lactic Acid Level 3.40*H 10/13/17 11:03: Lactic Acid Level 4.14*H 10/13/17 17:23: Lactic Acid Level 1.52 Objective Exam Vital Signs Vital Signs Date Time Temp Pulse Resp B/P (MAP) Pulse Ox O2 Delivery O2 Flow Rate FiO2 10/15/17 10:15 96 Room Air 10/15/17 08:00 97.8 116 18 112/62 (79) 10/13/17 06:32 40.00 30 Capillary Refill : Less Than 3 Seconds General Appearance: No Apparent Distress, Chronically ill Respiratory: Chest Non Tender, No Accessory Muscle Use, No Respiratory Distress , Other (Bibasilar fine rales noted symmetrical breath sounds no wheezing noted. ) Cardiovascular: Regular Rate, Rhythm, No Gallop, No JVD, No Murmur, Normal Peripheral Pulses Gastrointestinal: Normal Bowel Sounds, No Organomegaly, No Pulsatile Mass, Non Tender, Soft Extremity: Non Tender, No Calf Tenderness, Other (Trace bilateral pretibial and pedal edema) Neurologic/Psychiatric: Alert, Disoriented (To place and time. No evidence for agitation) Results/Procedures Lab Laboratory Tests 10/15/17 05:30 Patient resulted labs reviewed. Assessment/Plan Assessment and Plan Assess & Plan/Chief Complaint 1. History of nonischemic cardiomyopathy with acute exacerbation of chronic systolic heart failure. Patient is improving with decrease in respiratory rate and likely diminished chest congestion now exhibiting only some fine bibasilar rales. Continue physical therapy Nolan and beta francis therapy. 2. Apparent chronic hypertension under reasonable control. 3. Urinary tract infection questionable sepsis clinically improving. Clinical Quality Measures DVT/VTE Risk/Contraindication: Risk Factor Score Per Nursin RFS Level Per Nursing on Admit: 4+=Very High YANCY KELSEY MD Oct 15, 2017 11:09
[2017-10-15 12:30] VITALS: BP 128/68
[2017-10-15 16:09] VITALS: BP 130/71
[2017-10-15 19:57] VITALS: BP 120/73
[2017-10-16] VITALS (7 sets, daily range): BP systolic 107–122; BP diastolic 58–69
[2017-10-16] MEDS: cefTRIAXone 1 GM/NS 50 ML IVPB IV SCH ×4 (00:10→23:44)
[2017-10-16] MEDS: RT-ALBUTEROL/IPRATROPIUM 3 ML (DUONEB) VIAL INH SCH ×6 (02:01→22:02)
[2017-10-16] MEDS: ACETAMINOPHEN 500 MG TAB (TYLENOL) PO PRN (03:44)
[2017-10-16] MEDS: ENOXAPARIN 40 MG/0.4 ML (LOVENOX) SYR SQ SCH (06:19)
[2017-10-16] MEDS: KCL 10 MEQ TAB (MICRO K) PO SCH (06:19)
[2017-10-16] MEDS: CALCITONIN NASAL 200 INTLU/AC (FORTICAL) 3.7 ML BTL SCH (09:10)
[2017-10-16] MEDS: RASAGILINE 1 MG TAB PO SCH (09:10)
[2017-10-16] MEDS: lisINopril 5 MG (PRINIVIL) TABLET PO SCH (09:11)
[2017-10-16] MEDS: PANTOPRAZOLE 40 MG (PROTONIX) TAB PO SCH (09:11)
[2017-10-16] MEDS: DOCUSATE SODIUM 100 MG (COLACE) CAP PO SCH ×2 (09:11→20:59)
[2017-10-16] MEDS: ALPRAZolam 0.25 MG (XANAX) TAB PO SCH ×2 (09:11→20:59)
[2017-10-16] MEDS: SPIRONOLACTONE 25 MG (ALDACTONE) TAB PO SCH (09:11)
[2017-10-16] MEDS: FUROSEMIDE 40 MG/4 ML INJ (LASIX) IVP SCH (09:11)
[2017-10-16] MEDS: meTOprolol TARTRATE 25 MG (LOPRESSOR) TABLET PO SCH ×2 (09:11→20:59)
[2017-10-16] MEDS: SINEMET 25/100 (CARBIDOPA/LEVODOPA) TAB PO SCH ×3 (09:11→21:00)
--- NOTE | 2017-10-16 10:39 | Progress Note-Hospitalist ---
Subjective HPI/CC On Admission Date Seen by Provider: Oct 16, 2017 Time Seen by Provider: 10:36 Patient had just returned from short walk with physical therapy. She is unable without assistance to get back into bed but according to PT much better and the stamina and ambulation department today compared to yesterday. Her confusion appears to be less as well. She denies chest pain shortness of breath nausea or abdominal pain. Focused Exam Lactate Level 10/13/17 11:03: Lactic Acid Level 4.14*H 10/13/17 17:23: Lactic Acid Level 1.52 Objective Exam Vital Signs Vital Signs Date Time Temp Pulse Resp B/P (MAP) Pulse Ox O2 Delivery O2 Flow Rate FiO2 10/16/17 08:00 97.8 120 16 122/67 (85) 96 Room Air 10/16/17 07:32 21 10/13/17 06:32 40.00 Capillary Refill : Less Than 3 Seconds General Appearance: No Apparent Distress, Chronically ill, Thin Respiratory: Chest Non Tender, Lungs Clear, Normal Breath Sounds, No Accessory Muscle Use, No Respiratory Distress Cardiovascular: Regular Rate, Rhythm, No Edema, No Gallop, No JVD, Normal Peripheral Pulses, Other (Soft systolic ejection murmur heard best left lower sternal border) Results/Procedures Lab Patient resulted labs reviewed. Assessment/Plan Assessment and Plan Assess & Plan/Chief Complaint 1. History of nonischemic cardiomyopathy with acute exacerbation of chronic systolic heart failure. Patient is improving with decrease in respiratory rate and resolution of basilar rales on today's evaluation.. Continue physical therapy Nolan and beta francis therapy. 2. Apparent chronic hypertension under reasonable control. Heart rate trending higher as high as 120 currently in the 90s and regular post PT will increase metoprolol to 25 mg by mouth twice a day 3. Urinary tract infection questionable sepsis clinically improving. Culture positive for Citrobacter sensitive to Rocephin continue Clinical Quality Measures DVT/VTE Risk/Contraindication: Risk Factor Score Per Nursin RFS Level Per Nursing on Admit: 4+=Very High YANCY KELSEY MD Oct 16, 2017 10:39
[2017-10-17 00:57] VITALS: BP 117/56
[2017-10-17] MEDS: RT-ALBUTEROL/IPRATROPIUM 3 ML (DUONEB) VIAL INH SCH ×3 (02:19→10:38)
[2017-10-17 03:54] VITALS: BP 123/69
[2017-10-17] MEDS: KCL 10 MEQ TAB (MICRO K) PO SCH (06:08)
[2017-10-17] MEDS: ENOXAPARIN 40 MG/0.4 ML (LOVENOX) SYR SQ SCH (06:09)
[2017-10-17 08:00] VITALS: BP 125/64
--- NOTE | 2017-10-17 09:16 | Discharge Summary ---
Diagnosis/Chief Complaint Date of Admission Oct 13, 2017 at 00:01 Date of Discharge Discharge Summary Discharge Physical Examination Allergies: Coded Allergies: Penicillins (Verified Allergy, Mild, 08/05/13) Vitals & I&Os Vital Signs Date Time Temp Pulse Resp B/P (MAP) Pulse Ox O2 Delivery O2 Flow Rate FiO2 10/17/17 08:00 97.4 95 18 125/64 (84) 95 Room Air 10/16/17 07:32 21 10/13/17 06:32 40.00 Discharge Instructions to patient/family Please see electronic discharge instructions given to patient. Discharge Medications Reviewed and agree with Discharge Medication list on patient's Discharge Instruction sheet Clinical Quality Measures DVT/VTE Risk/Contraindication: Risk Factor Score Per Nursin RFS Level Per Nursing on Admit: 4+=Very High NICOLE BOLAÑOS MD Oct 17, 2017 09:16
[2017-10-17] MEDS ORDERED: POTA10TA6 PO (09:23)
[2017-10-17] MEDS ORDERED: FURO-125 PO (09:23)
[2017-10-17] MEDS ORDERED: LACT1CAP87 PO (09:23)
[2017-10-17] MEDS ORDERED: LISI-556 PO (09:23)
[2017-10-17] MEDS ORDERED: CEPH-507 PO (09:23)
[2017-10-17] MEDS ORDERED: ALPR0.25 PO (09:23)
[2017-10-17] MEDS ORDERED: ACET-77 PO (09:23)
--- NOTE | 2017-10-17 09:31 | Discharge Inst-Skilled Nursing ---
Discharge Inst-Skilled NF Patient Instructions Patient Problems: URINARY TRACT INFECITON HEART FAILURE PARKINSON'S DISEASE SACRAL FRACTURE PUBIC RAMI FRACTURE Consult/Follow Up/Orders Follow Up Appt.: 1 WK WITH [facility] Skilled NF Admit to: [facility] Certification ([facility]) I certify that SNF services are required to be given on an inpatient basis because of the above named patient's need for shelter care on a continuing basis for the conditions(s) for which he/she was receiving inpatient hospital services prior to his/her transfer to the SNF. Alf Facility Order: Nursing Services, Staffing Branch Manager-Evaluate & Treat, Physical Therapy-Evaluate & Treat, Speech Language-Evaluate & Treat Discharge Diet: Low Sodium Diet New & Resume Previous Orders New & Resume Previous Orders STOP HYDROCODONE DAILY WEIGHTS - WRITE ON CALENDER IN PT ROOM, CALL PHYSICIAN OFFICE IF GREATER THAN 3# WT GAIN IN 2 DAYS UA WITH C AND S IF INDICATED - PRN FOR SYMPTOMS OF URINARY TRACT INFECTION, INCREASE IN CONFUSION, OR FAMILY SPECIFIC REQUEST FOR UA SPEECH, PHYSICAL AND OCCUPATIONAL THERAPY - TRY TO DO THERAPIES AT LEAST TWICE DAILY GOAL FOR PT IS BACK TO HOSPITAL WITH INPATIENT REHAB PRIOR TO GOING BACK HOME CMP, CBC AND BNP (BRAIN NATRIURETIC PEPTIDE) ON 10/20/17 AND 10/27/17 Nicole Bonds Oct 17, 2017 09:25 Medication List: Active Scripts Active Acidophilus Lactobacilli (Lactobacillus Acidophilus) 1 Each Capsule 1 Each PO TID Keflex (Cephalexin) 500 Mg Capsule 500 Mg PO TID Lasix (Furosemide) 20 Mg Tablet 20 Mg PO DAILY Klor-Con 10 (Potassium Chloride) 10 Meq Tablet.er 20 Meq PO DAILY@0700 Acetaminophen 500 Mg Tablet 500 Mg PO Q6H PRN Lisinopril 5 Mg Tablet 5 Mg PO DAILY Xanax (Alprazolam) 0.25 Mg Tablet 0.125 Mg PO HS GIVE SCHEDULED AT BEDTIME X 1 WEEK THEN CHANGE TO NEEDED DOSING ONLY Reported Tylenol Extra Strength (Acetaminophen) 500 Mg Tablet 500 Mg PO BID Hydrocodone-Acetamin 5-325 mg (Hydrocodone/Acetaminophen) 1 Each Tablet 0.5 Tab PO BID PRN Hydrocodone-Acetamin 5-325 mg (Hydrocodone/Acetaminophen) 1 Each Tablet 0.5 Tab PO DAILY Aspercreme (Lidocaine HCl) 76.5 Gm Cream..g. TP BID PRN [place] Liquid (Mag Hydrox/Al Hydrox/Simeth) 355 Ml Oral.susp 30 Ml PO Q4H PRN Xanax (Alprazolam) 0.25 Mg Tablet 0.125 Mg PO Q8H PRN Bisacodyl 10 Mg Supp.rect 10 Mg RC DAILY PRN Milk of Magnesia (Magnesium Hydroxide) 400 Mg/5 Ml Oral.susp 30 Ml PO DAILY PRN Megestrol Acetate 400 Mg/10 Ml Oral.susp 5 Ml PO BID Colace (Docusate Sodium) 100 Mg Capsule 100 Mg PO BID Calcitonin-[place] (Calcitonin,[place],Synthetic) 3.7 Ml [place].pump 1 [place] NA DAILY Potassium Chloride 20 Meq Tab.er.prt 20 Meq PO 3X PER WEEK PRN Metoprolol Tartrate 25 Mg Tablet 12.5 Mg PO BID TAKES 1/2 (25MG) TABLET Spironolactone 25 Mg Tablet 25 Mg PO DAILY Rasagiline Mesylate 1 Mg Tablet 1 Mg PO DAILY Omeprazole 20 Mg Capsule.dr 20 Mg PO BID Aspirin EC (Aspirin) 81 Mg Tablet.dr 81 Mg PO WE TAKES AT NOON [place]-3 ([place]-3 Fatty Acids) 1,000 Mg Capsule 1,000 Mg PO DAILY Super B Complex (Vitamin B Complex & Vit C No.4) 150 Mg Tablet 150 Mg PO DAILY Vitamin D3 (Cholecalciferol (Vitamin D3)) 400 Unit Tablet 400 Unit PO DAILY Calcium 500 + Vit D Caplet (Calcium Carbonate/Vitamin D3) 1 Each Tablet 1 Tab PO DAILY Daily Multiple Vitamin (Multivitamin) 1 Each Tablet 1 Tab PO DAILY Nitrostat (Nitroglycerin) 0.4 Mg Tab.subl 0.4 Mg SL UD PRN Sertraline HCl 50 Mg Tablet 50 Mg PO HS Carbidopa-Levodopa 25-100 Tab (Carbidopa/Levodopa) 1 Each Tablet 3 Tab PO 1200 Carbidopa-Levodopa 25-100 Tab (Carbidopa/Levodopa) 1 Each Tablet 2 Tab PO BID My orders: Orders - NICOLE BONDS MD Attending Discharge Inpt/Inobs (10/17/17 09:16) NICOLE BONDS MD Oct 17, 2017 09:31
[2017-10-17] MEDS: FUROSEMIDE 40 MG/4 ML INJ (LASIX) IVP SCH (09:36)
[2017-10-17] MEDS: CALCITONIN NASAL 200 INTLU/AC (FORTICAL) 3.7 ML BTL SCH (09:37)
[2017-10-17] MEDS: ALPRAZolam 0.25 MG (XANAX) TAB PO SCH (09:37)
[2017-10-17] MEDS: DOCUSATE SODIUM 100 MG (COLACE) CAP PO SCH (09:37)
[2017-10-17] MEDS: RASAGILINE 1 MG TAB PO SCH (09:37)
[2017-10-17] MEDS: meTOprolol TARTRATE 25 MG (LOPRESSOR) TABLET PO SCH (09:37)
[2017-10-17] MEDS: PANTOPRAZOLE 40 MG (PROTONIX) TAB PO SCH (09:37)
[2017-10-17] MEDS: SPIRONOLACTONE 25 MG (ALDACTONE) TAB PO SCH (09:37)
[2017-10-17] MEDS: lisINopril 5 MG (PRINIVIL) TABLET PO SCH (09:37)
[2017-10-17] MEDS: SINEMET 25/100 (CARBIDOPA/LEVODOPA) TAB PO SCH (09:38)
[2017-10-17 13:59] VITALS: BP 125/64
[2017-10-19] MEDS ORDERED: ASPIRIN E.C. 81 MG (ECOTRIN) TAB PO SCH (12:00)
== END 2017-10-17 12:07 | DRG 871 ==
LOC: EDUNIT# 21:38 → ER 21:39 → 4TH 10-13 00:01
PROVIDERS: ADMIT Family Medicine; ATTEND Family Medicine
DX: A41.9 Sepsis, unspecified organism (principal); N39.0 Urinary tract infection, site not specified; E86.0 Dehydration; E87.5 Hyperkalemia; I13.0 Hypertensive heart and chronic kidney disease with heart failure and stage 1 through stage 4 chronic kidney disease, or unspecified chronic kidney disease; I50.23 Acute on chronic systolic (congestive) heart failure; N18.9 Chronic kidney disease, unspecified; I42.9 Cardiomyopathy, unspecified; Z66 Do not resuscitate; J44.9 Chronic obstructive pulmonary disease, unspecified; I44.7 Left bundle-branch block, unspecified; G20 Parkinson's disease; E78.00 Pure hypercholesterolemia, unspecified; R39.15 Urgency of urination; N39.3 Stress incontinence (female) (male); K21.9 Gastro-esophageal reflux disease without esophagitis; R13.10 Dysphagia, unspecified; K44.9 Diaphragmatic hernia without obstruction or gangrene; F41.9 Anxiety disorder, unspecified; S32.511D Fracture of superior rim of right pubis, subsequent encounter for fracture with routine healing; S32.19XD Other fracture of sacrum, subsequent encounter for fracture with routine healing; Z85.038 Personal history of other malignant neoplasm of large intestine; Z85.3 Personal history of malignant neoplasm of breast
CPT/HCPCS: 36415; 71045; 74176; 76937; 80048; 80053; 80069; 81000; 82150; 82805; 82962; 83605; 83690; 83735; 83880; 84484; 85007; 85025; 85027; 85610; 85730; 87040; 87077; 87088; 87186; 93005; 93041; 94640; 94664; 94760; 96361; 96365; 96375